=== PATIENT | female | born 1935 | race Caucasian/White ===

== ENCOUNTER → 2016-03-23 | Day surgery (SDC) | payer OTHER ==
[2016-03-19 14:47] VITALS: Ht 165.1 cm; Wt 68.2 kg
[~2016-03-23] VITALS: Ht 165.1 cm; Wt 68.2 kg
[~2016-03-23] MED LIST: 500ML BSS 0.3ML EPI 1:1000PF IRRIG ONE; ACET-1256 PO; ACETAMINOPHEN 325 MG TAB PO PRN; AMLO-110 PO; AMVISC PLUS 0.8ML SYRINGE INT OCU ONE; ATOR10TA88 PO; BSS FLUSH ONE; CALC8.5C PO; CEFP200T14 PO; CLOP1TAB15 PO; CYCLOPENTOLATE HCL 1% OP SOLN PER DROP CHARGE OPR SCH; DOCU-94 PO; ENOX1INJ8 INJ; EpINEphrine INJ 1MG/ML AMP 1 MG/ML AMP ONE; FRS/40 PO; GATIFLOXACIN OP SOLN PER DROP CHARGE OPR SCH; HPRIS5M SQ; KETOROLAC 0.5% OP SOLN PER DROP CHARGE OPR SCH; LACTATED RINGER'S 1000ML 500 ML IV SCH; LEVO25TA5 PO; LIDOCAINE 3.5% OPH GEL PER APPLICATION CHARGE ONE; LIDOCAINE HCL 1% MPF 2 ML VIAL ONE; LISI40TA PO; LPR25 PO; LVQ250 PO; METO25TA56 PO; MIDAZOLAM HCL 1 MG/ML 2ML VIAL ONE; NRV5 PO; OCUCOAT 1 ML SOLN IO ONE; OMEP20CA9 PO; OXYC1TAB3 PO; PHENYLEPHRINE HCL 10% OP SOLN PER DROP CHARGE OPR SCH; PHENYLEPHRINE HCL 2.5% OP SOLN PER DROP CHARGE OPR SCH; POLY335025 PO; POVIDONE-IODINE OP SOLN 30 ML BTL ONE; PRED1SUS3 OPR; PROPARACAINE 0.5% OP SOLN PER DROP CHARGE OPR SCH; SERT25TA PO; SODIUM CHLORIDE 0.9% 500ML IV SCH; TOBRAMYCIN/DEXAMETHASONE OPH OINT PER APPLN CHARGE ONE; TROPICAMIDE 1% OP SOLN PER DROP CHARGE OPR SCH; TRYPAN BLUE 0.06% FOR SURGI CENTER ONLY OP ONE; VISIONBLUE 0.06% 0.5ML/SYR TOP ONE
[2016-03-23] MEDS: PHENYLEPHRINE HCL 2.5% OP SOLN PER DROP CHARGE OPR SCH ×2 (10:46→10:51)
[2016-03-23] MEDS: TROPICAMIDE 1% OP SOLN PER DROP CHARGE OPR SCH ×2 (10:47→10:52)
[2016-03-23] MEDS: CYCLOPENTOLATE HCL 1% OP SOLN PER DROP CHARGE OPR SCH ×2 (10:48→10:53)
--- NOTE | 2016-03-23 10:48 | History & Physical Bridge - [place] ---
H&P Re-Evaluation Bridge Note: I have examined the patient, reviewed the History & Physical and in the interval since the performance of the History & Physical I have noted the following changes of clinical significance: Diagnosis: Right Cataract Procedure: Right Cataract Removal with Lens Implant No changes noted
[2016-03-23] MEDS: KETOROLAC 0.5% OP SOLN PER DROP CHARGE OPR SCH ×2 (10:49→10:54)
[2016-03-23] MEDS: GATIFLOXACIN OP SOLN PER DROP CHARGE OPR SCH ×2 (10:50→10:57)
--- NOTE | 2016-03-23 11:47 | Discharge Instructions-SurgCtr ---
Discharge Instructions Visit Reason for Visit: Cataract Right Eye Discharge Discharge Diagnosis / Problem: cataract Discharge Goals Goal(s): Improve function Activity Recommendations Activity Limitations: per Instructions/Follow-up section Anesthesia . Post Anesthesia Instructions: If you have had General Anesthesia or IV Sedation: * Do not drive today. * Resume driving when surgeon permits. * Do not make important decisions or sign legal documents today. * Call surgeon for: 1. Temperature elevations greater than 101 degrees F. 2. Uncontrollable pain. 3. Excessive bleeding. 4. Persistent nausea and vomiting. 5. Medication intolerance (nausea, vomiting or rash). * For nausea and vomiting use only clear liquids such as: tea, soda, bouillon until nausea subsides, then gradually increase diet as tolerated. * If you have any concerns or questions, call your surgeon's office. If physician is unavailable and it is an emergency, call 911 or go to the nearest emergency room. . Instructions / Follow-Up Instructions / Follow-Up ACTIVITY RECOMMENDATIONS: * No strenuous lifting, jogging or running for 4 days * No swimming or yard work for 1 week. * Limited bending is permitted, such as putting on shoes. RETURN TO SCHOOL/WORK: No work until seen by physician in office. MEDICATIONS: Resume previous medications unless instructed otherwise by your surgeon. This includes eye drops for glaucoma. Zymaxid/Gatifloxacin (ghotra cap) - one drop every 2 hours until bedtime Nevanac/Ilevro/Prolensa/Ketorolac (woodruff cap) - one drop every 4 hours until bedtime Prednisolone (white/pink cap, SHAKE WELL) - one drop every 2 hours until bedtime Starting tomorrow - all 3 drops every 4 hours until seen in the office Optive drops - as needed for discomfort SPECIAL CARE INSTRUCTIONS: * Wear eyeshield when sleeping, for four nights. * You may wear your own glasses or sunglasses while awake. * You may read or watch TV * You may shower and wash your face, but be gentle around the eye and pat dry. * Blurry vision and mild irritation are normal. * Call office if pain is more severe or vision becomes dark at . FOLLOW UP VISIT: Follow-up with Dr Dolan tomorrow. Diet Recommendations Home Diet: resume previous diet Procedures Procedures Performed: Right Cataract Phacoemulsification With Intraocular Lens Implant Pending Studies Studies pending at discharge: no Medical Emergencies . Who to Call and When: Medical Emergencies: If at any time you feel your situation is an emergency, please call 911 immediately. . Non-Emergent Contact Non-Emergency issues call your: Package Handler . . "Provider Documentation" section prepared by Regan Dolan.
[2016-03-23 11:50] VITALS: TEMP 37.1
--- NOTE | 2016-03-23 11:50 | [facility] Operative Report ---
Operative Report 1. PREOPERATIVE DIAGNOSIS: Mature Cataract of the right eye. 2. POSTOPERATIVE DIAGNOSIS: Same. 3. PROCEDURE: Phacoemulsification with intraocular lens implantation of the right eye with pupil stretching. SURGEON: Dr. Regan Dolan. ANESTHESIA: Topical Lidocaine gel, 1% Non- Preserved intracameral Lidocaine, and monitored intravenous sedation. INDICATIONS FOR THE PROCEDURE: The patient is a 80 - year-old female with a history of cataract of the right eye causing significant visual impairment. The details of the proposed procedure were explained to the patient who asked appropriate questions and following discussion of all risks, benefits and alternatives agreed to have the procedure done. The patient had a mature cataract with a poorly dilating pupil and therefore plans were made preoperatively to use Vision blue dye and pupil stretching. 4. OPERATION AND FINDINGS: DESCRIPTION OF PROCEDURE: After informed consent was obtained, the patient was brought to the Operating Room at the [facility]. The patient was placed in a supine position and then the right eye was prepped and draped in the usual sterile fashion for intraocular surgery. A drop of topical Lidocaine gel was placed in the operative eye. A wire lid speculum was then placed in the fornices. A corneal paracentesis was then created temporally. The Non-Preserved Lidocaine was then instilled into the anterior chamber. The anterior chamber was then pressurized with viscoelastic. A 2.0 mm clear corneal incision was then created temporally. Kuglen hooks were used to stretch the pupil vertically and horizontally. Vision Blue dye was used to stain the anterior lens capsule. A cystotome was inserted into the anterior chamber and used to create a tear in the anterior lens capsule. This capsular tear was then used to create a small flap and the flap was dragged in a counterclockwise direction in order to create a continuous curvilinear capsulorrhexis. Hydrodissection was accomplished with balanced salt solution. Phacoemulsification of the lens nucleus was then performed in a standard divide- and-conquer technique. The phaco time was 1 minute and 46 seconds with an average power of 21 %. The remaining cortical material was removed using irrigation aspiration. The capsular bag was then filled with viscoelastic. A [employer] MI60L +22.0 diopters lens was then loaded into the injector and injected into the capsular bag. The remaining viscoelastic was removed with the irrigation aspiration handpiece. The wound was hydrated and then checked and found to be watertight. The intraocular pressure was checked and found to be adequate. The wire lid speculum was removed and the patient's face was cleaned and dried. TobraDex ointment was placed in the inferior fornix. The patient was discharged to the Recovery Room having tolerated the procedure well. There were no complications. The patient will be seen tomorrow in the office for follow-up. I attest to the content of the Intraoperative Record and any orders documented therein. Any exceptions are noted below.
--- NOTE | 2016-03-23 11:56 | Anesthesia Progress Nt - [facility] ---
Anesthesia Post Op Note Date & Time Mar 23, 2016 at 11:56 Vital Signs Pain Intensity: 0 Vital Signs Past 12 Hours Date Time Temp Pulse Resp B/P Pulse Ox O2 Delivery O2 Flow Rate FiO2 03/23/16 11:50 37.1 65 16 186/65 97 Room Air 03/23/16 10:38 37.0 73 18 203/82 96 Room Air Notes Mental Status: alert / awake / arousable, participated in evaluation Pt Amnestic to Procedure: No Nausea / Vomiting: adequately controlled Pain: adequately controlled Airway Patency, RR, SpO2: stable & adequate BP & HR: stable & adequate Hydration State: stable & adequate Anesthetic Complications: no major complications apparent Pt doing well. Recall as expected.
[2016-03-23 12:03] VITALS: BP 175/66; PULSE 59; O2SAT 95
== END | disposition home or self-care (01) ==
LOC: X.SURG 10:22
PROVIDERS: ATTEND Ophthalmology
DX: H26.8 Other specified cataract (principal); M81.0 Age-related osteoporosis without current pathological fracture; M19.90 Unspecified osteoarthritis, unspecified site; E03.9 Hypothyroidism, unspecified; I10 Essential (primary) hypertension; N18.3 Chronic kidney disease, stage 3 (moderate); E78.5 Hyperlipidemia, unspecified; Z86.73 Personal history of transient ischemic attack (TIA), and cerebral infarction without residual deficits; Z82.49 Family history of ischemic heart disease and other diseases of the circulatory system

== ENCOUNTER 2016-05-03 21:40 | Inpatient (IN) | payer OTHER ==
[~2016-05-03] VITALS: Ht 162.6 cm; Wt 69.0 kg
[~2016-05-03 21:40] MED LIST changes: -500ML BSS 0.3ML EPI 1:1000PF IRRIG ONE; -ACET-1256 PO; -ACETAMINOPHEN 325 MG TAB PO PRN; -AMVISC PLUS 0.8ML SYRINGE INT OCU ONE; -BSS FLUSH ONE; -CEFP200T14 PO; -CYCLOPENTOLATE HCL 1% OP SOLN PER DROP CHARGE OPR SCH; -ENOX1INJ8 INJ; -EpINEphrine INJ 1MG/ML AMP 1 MG/ML AMP ONE; -GATIFLOXACIN OP SOLN PER DROP CHARGE OPR SCH; -HPRIS5M SQ; -KETOROLAC 0.5% OP SOLN PER DROP CHARGE OPR SCH; -LACTATED RINGER'S 1000ML 500 ML IV SCH; -LIDOCAINE 3.5% OPH GEL PER APPLICATION CHARGE ONE; -LIDOCAINE HCL 1% MPF 2 ML VIAL ONE; -LVQ250 PO; -METO25TA56 PO; -MIDAZOLAM HCL 1 MG/ML 2ML VIAL ONE; -NRV5 PO; -OCUCOAT 1 ML SOLN IO ONE; -OXYC1TAB3 PO; -PHENYLEPHRINE HCL 10% OP SOLN PER DROP CHARGE OPR SCH; -PHENYLEPHRINE HCL 2.5% OP SOLN PER DROP CHARGE OPR SCH; -POVIDONE-IODINE OP SOLN 30 ML BTL ONE; -PROPARACAINE 0.5% OP SOLN PER DROP CHARGE OPR SCH; -SODIUM CHLORIDE 0.9% 500ML IV SCH; -TOBRAMYCIN/DEXAMETHASONE OPH OINT PER APPLN CHARGE ONE; -TROPICAMIDE 1% OP SOLN PER DROP CHARGE OPR SCH; -TRYPAN BLUE 0.06% FOR SURGI CENTER ONLY OP ONE; -VISIONBLUE 0.06% 0.5ML/SYR TOP ONE
[2016-05-04] VITALS (8 sets, daily range): BP systolic 97–164; BP diastolic 47–72; PULSE 63–105; TEMP 36.6–37.3; O2SAT 93–96; Ht 162.6 cm; Wt 69.0 kg
[2016-05-04 00:15] LABS: BASO % 0.2 %; BASO ABS # 0.04 K/uL (0-0.2); COMPLETE YES; EOS % 2.1 %; HEMATOCRIT 34.6 % (37-47); IG% 0.7 %; LYMPH % 6.2 %; LYMPH ABS # 1.08 K/uL (1.2-3.4); MEAN CORPUSCULAR HEMOGLOBIN 27.3 pg (25-34); MEAN CORPUSCULAR HGB CONC 32.9 g/dl (32-36); MONO % 11.7 %; NEUT % 79.1 %; PLATELET COUNT 301 K/uL (130-400); RED BLOOD COUNT 4.17 M/uL (4.2-5.4); WHITE BLOOD COUNT 17.43 K/uL (4.8-10.8)
[2016-05-04] MEDS ORDERED: METO25TA56 PO (00:17)
[2016-05-04 00:25] LABS: INR 1.2 (0.9-1.1); PARTIAL THROMBOPLASTIN RATIO 1.2; PROTHROMBIN TIME (PATIENT) 12.9 SECONDS (9.0-12.0)
[2016-05-04 00:34] LABS: URINE APPEARANCE TURBID (CLEAR); URINE BILIRUBIN NEG (NEG); URINE COLOR YELLOW; URINE EPITHELIAL CELL AUTO 20-30 /lpf (0-5); URINE NITRITE NEG (NEG); URINE SPECIFIC GRAVITY 1.018 (1.000-1.030); UROBILINOGEN NEG (NEG); ZZURINE CULT IF INDIC CATH NO
[2016-05-04 00:41] LABS: MANUAL MICROSCOPIC REQUIRED? NO; REVIEW REQ? NO
[2016-05-04 00:46] LABS: BUN/CREATININE RATIO 20.2 (10-20); CREATININE 1.3 mg/dl (0.60-1.20); POTASSIUM 3.9 mmol/L (3.5-5.1)
[2016-05-04 00:51] LABS: CKMB/CK RATIO 1.2 (0-3.0)
[2016-05-04] MEDS ORDERED: LEVAQUIN 750MG / 150ML D5W IV STA (01:59)
[2016-05-04 02:28] LABS: INFLUENZA A PCR Neg for Influ A (NEG); INFLUENZA B PCR Neg for Influ B (NEG)
--- NOTE | 2016-05-04 02:36 | EMERGENCY ROOM VISIT NOTE ---
History Report prepared by Queenie: Elver Urias Under the Supervision of: Dr. Diana Treviño M.D. First contact with patient: 23:39 Chief Complaint: SHORTNESS OF BREATH Stated Complaint: FEVER,NAUSEA,SOB Nursing Triage Summary: c/o fever, cough, SOB, nausea, chills x 2 days. tylenol at 1800 History of Present Illness The patient is a 80 year old female who presents to the Emergency Room by EMS with complaints of persistent shortness of breath beginning two days ago. She also complains of nausea, fever of 101 degrees, and a cough. The patient's family states that the patient's urine has smelled "very strong" recently as well. He states that the patient has not had anything to eat today. He is concerned that the patient may have an infection. The patient denies any chest pain. Source of History: patient, family Onset: two days ago Quality: other (shortness of breath) Timing: other (persistent) Associated Symptoms: + cough, + fevers (101 degrees), + nausea, + urinary symptoms (abnormal smell), No chest pain Review of Systems See HPI for pertinent positives & negatives. A total of 10 systems reviewed and were otherwise negative. Past Medical & Surgical Medical Problems: (1) Adjustment reaction with anxiety and depression (2) Cerebrovascular disease (3) CKD (chronic kidney disease) stage 3, GFR 30-59 ml/min (4) Dyslipidemia (5) Fever (6) History of CVA (cerebrovascular accident) (7) HTN (hypertension) (8) Hypertension (9) Hypothyroidism (10) Osteoarthritis (11) Osteoporosis Surgical Problems: (1) History of hip surgery (2) No significant past surgical history Family History Cancer Diabetes mellitus FH: kidney disease Hypertension Social History Smoking Status: Never Smoker Drug Use: none Marital Status: Housing Status: lives with family Occupation Status: retired Current/Historical Medications Scheduled Amlodipine (Norvasc), 5 MG PO QAM Atorvastatin (Lipitor), 10 MG PO QPM Calcium W/ Vitamins D & K (Viactiv), 1 TAB PO BID Clopidogrel (Plavix), 75 MG PO QAM Docusate Sodium (Colace), 1 CAP PO BID Furosemide (Lasix), 40 MG PO QAM Levothyroxine Sodium (Levothyroxine Sodium), 25 MCG PO QAM Lisinopril (Zestril), 40 MG PO QAM Metoprolol Tartrate (Lopressor) (Lopressor), 12.5 MG PO BID Omeprazole (Prilosec), 20 MG PO HS Prednisolone Acetate (Ophth) (Pred Forte 1% Oph), 1 DROPS OPR DAILY Sertraline (Zoloft), 25 MG PO HS Scheduled PRN Polyethylene Glycol 3350 (Miralax), 17 GM PO DAILY PRN for Constipation Allergies Coded Allergies: Aspirin (Verified Allergy, Severe, ANAPHYLAXIS, SWELLING, 05/04/16) Physical Exam Vital Signs Date Time Temp Pulse Resp B/P Pulse Ox O2 Delivery O2 Flow Rate FiO2 05/04/16 02:17 67 18 130/49 94 Room Air 05/04/16 00:46 69 20 130/49 95 Room Air 05/03/16 23:46 72 05/03/16 23:45 66 22 148/56 95 Room Air 05/03/16 21:56 93 Room Air 05/03/16 21:52 36.9 76 20 133/62 94 Room Air Physical Exam Vital signs reviewed. General: Strong smell of urine present. Elderly, chronically ill appearing female, hard of hearing, in no acute distress. HEENT: No scleral icterus, PERRLA, neck supple. Atraumatic. Cardiovascular: Regular rate and rhythm, no extra sounds. Pulmonary: Clear to auscultation bilaterally, normal work of breathing. Abdomen: Soft, nontender, nondistended, positive bowel sounds. Musculoskeletal: Atraumatic, no peripheral edema. Neurologic: Patient awake alert and oriented x 3, full strength in all 4 extremities. Cranial nerves 2 through 12 grossly intact. Skin: Warm, dry, no rash Medical Decision & Procedures ER Provider Diagnostic Interpretation: One View Chest X-ray interpreted by me: Right perihilar fullness. Left basilar density. Possible right pleural effusion vs. infiltrate. Right sided infiltrate is new and left basilar density is old compared to 02/04/16. Laboratory Results 05/03/16 23:55 Red Blood Count 4.17, Mean Corpuscular Volume 83.0, Mean Corpuscular Hemoglobin 27.3, Mean Corpuscular Hemoglobin Concent 32.9, Mean Platelet Volume 10.0, Neutrophils (%) (Auto) 79.1, Lymphocytes (%) (Auto) 6.2, Monocytes (%) (Auto) 11.7, Eosinophils (%) (Auto) 2.1, Basophils (%) (Auto) 0.2, Neutrophils # (Auto ) 13.79, Lymphocytes # (Auto) 1.08, Monocytes # (Auto) 2.04, Eosinophils # (Auto ) 0.36, Basophils # (Auto) 0.04 Test 05/03/16 23:41 05/03/16 23:55 05/04/16 00:06 05/04/16 00:20 Influenza Type A (RT-PCR) Neg for Influ A (NEG) Influenza Type A Antigen Neg for Influ A (NEG) Influenza Type B Antigen Neg for Influ B (NEG) Influenza Type B (RT-PCR) Neg for Influ B (NEG) White Blood Count 17.43 K/uL (4.8-10.8) Red Blood Count 4.17 M/uL (4.2-5.4) Hemoglobin 11.4 g/dL (12.0-16.0) Hematocrit 34.6 % (37-47) Mean Corpuscular Volume 83.0 fL (80-100) Mean Corpuscular Hemoglobin 27.3 pg (25-34) Mean Corpuscular Hemoglobin Concent 32.9 g/dl (32-36) Platelet Count 301 K/uL (130-400) Mean Platelet Volume 10.0 fL (7.4-10.4) Neutrophils (%) (Auto) 79.1 % Lymphocytes (%) (Auto) 6.2 % Monocytes (%) (Auto) 11.7 % Eosinophils (%) (Auto) 2.1 % Basophils (%) (Auto) 0.2 % Neutrophils # (Auto) 13.79 K/uL (1.4-6.5) Lymphocytes # (Auto) 1.08 K/uL (1.2-3.4) Monocytes # (Auto) 2.04 K/uL (0.11-0.59) Eosinophils # (Auto) 0.36 K/uL (0-0.5) Basophils # (Auto) 0.04 K/uL (0-0.2) RDW Standard Deviation 44.3 fL (36.4-46.3) RDW Coefficient of Variation 14.5 % (11.5-14.5) Immature Granulocyte % (Auto) 0.7 % Immature Granulocyte # (Auto) 0.12 K/uL (0.00-0.02) Prothrombin Time 12.9 SECONDS (9.0-12.0) Prothromb Time International Ratio 1.2 (0.9-1.1) Activated Partial Thromboplast Time 30.5 SECONDS (21.0-31.0) Partial Thromboplastin Ratio 1.2 Magnesium Level 2.0 mg/dl (1.8-2.4) Total Bilirubin 0.3 mg/dl (0.2-1) Direct Bilirubin 0.1 mg/dl (0-0.2) Aspartate Amino Transf (AST/SGOT) 18 U/L (15-37) Alanine Aminotransferase (ALT/SGPT) 17 U/L (12-78) Alkaline Phosphatase 94 U/L (45-117) Total Creatine Kinase 75 U/L (26-192) Creatine Kinase MB 0.9 ng/ml (0.5-3.6) Creatine Kinase MB Ratio 1.2 (0-3.0) Total Protein 7.3 gm/dl (6.4-8.2) Albumin 2.8 gm/dl (3.4-5.0) Bedside Troponin I 0.000 ng/ml (0-0.045) Urine Color YELLOW Urine Appearance TURBID (CLEAR) Urine pH 5.0 (4.5-7.5) Urine Specific [place] 1.018 (1.000-1.030) Urine Protein NEG (NEG) Urine Glucose (UA) NEG (NEG) Urine Ketones NEG (NEG) Urine Occult Blood 3+ (NEG) Urine Nitrite NEG (NEG) Urine Bilirubin NEG (NEG) Urine Urobilinogen NEG (NEG) Urine Leukocyte Esterase TRACE (NEG) Urine WBC (Auto) 1-5 /hpf (0-5) Urine RBC (Auto) 0-4 /hpf (0-4) Urine Hyaline Casts (Auto) 1-5 /lpf (0-5) Urine Epithelial Cells (Auto) 20-30 /lpf (0-5) Urine Bacteria (Auto) NEG (NEG) Test 05/04/16 01:04 Bedside Lactic Acid Venous 1.64 mmol/L (0.90-1.70) Laboratory results per my review. Medications Administered Medications (Trade) Dose Ordered Sig/Ebony Route Start Time Stop Time Status Last Admin Dose Admin Levofloxacin (Levaquin / D5W) 750 mg NOW STAT IV 05/04/16 01:59 05/04/16 02:00 DC 05/04/16 02:13 750 MG ECG Indication: SOB/dyspnea Rate (beats per minute): 73 Rhythm: normal sinus Findings: RBBB (incomplete), no acute ischemic change, other (QTC of 491. Repolarization abnormality in the inferior leads. ) ED Course 2346: Past medical records reviewed. The patient was evaluated in room B4B. A complete history and physical examination was performed. 015: Ordered Levaquin / D5w 750 mg IV. 0225: Upon reevaluation, the patient is resting comfortably. I discussed laboratory and radiographic results with her. She verbalized agreement of the treatment plan. I spoke with Dr. Ordoñez of the [facility] Hospitalist Service. The patient will be evaluated for further management and care. Medical Decision Differential diagnosis: Etiologies such as viral syndrome, otitis, pharyngitis, pneumonia, influenza, meningitis, urinary tract infection, sepsis, bacteremia, as well as others were entertained. This patient was evaluated and appeared to be in no significant distress. IV access was obtained and laboratory work was drawn. The patient was placed on the cardiac surgeon and found to be in a normal sinus rhythm. Chest x-ray was performed and reveals evidence of pulmonary infiltrate. Blood cultures were obtained and the patient was given Levaquin 750 mg IV. The patient does not appear to be septic at this time. She is requiring nasal cannula oxygen for which she does not use at home. Patient's case was discussed with the hospitalist service. She'll be evaluated for further management. Patient family are aware of the plan and agree. Consults Time Called: [phone] Consulting Physician: Dr. Tiago Germain Returned Call: [phone] I reviewed the patient's case with Dr. Ordoñez. He will evaluate the patient for further management. Impression Primary Impression: Pneumonia involving right lung Scribe Attestation The scribe's documentation has been prepared under my direction and personally reviewed by me in its entirety. I confirm that the note above accurately reflects all work, treatment, procedures, and medical decision making performed by me. Departure Information Dispostion Being Evaluated By Hospitalist Referrals Cathleen Infante D.O. (PCP) Patient Instructions My [facility]
[2016-05-04] MEDS ORDERED: ACETAMINOPHEN 325 MG TAB PO PRN (02:45)
[2016-05-04] MEDS ORDERED: POLYETHYLENE (MIRALAX) 17 GM PACK PO PRN (04:45)
[2016-05-04] MEDS: LEVOTHYROXINE 25 MCG TAB PO SCH (06:10)
--- NOTE | 2016-05-04 06:45 | DIAGNOSTIC IMAGING REPORT ---
CHEST ONE VIEW PORTABLE CLINICAL HISTORY: Shortness of breath, fever, cough, nausea. COMPARISON STUDY: No previous studies for comparison. FINDINGS: The cardiac and mediastinal contours are normal. There is no evidence of focal pulmonary consolidation. There is no evidence of failure. No pleural effusions are visualized.[There are subtle airspace opacities at the right lateral lung base. These could be atelectatic or inflammatory. There is minor left basilar atelectasis. IMPRESSION: 1. Subtle airspace opacities at the right lateral lung base, atelectatic versus inflammatory. Clinical and radiographic follow-up is recommended. Electronically signed by: Dennis Rowan M.D. 05/04/2016 6:44 AM Dictated Date/Time: 05/04/2016 6:42 AM
--- NOTE | 2016-05-04 07:04 | History and Physical ---
History & Physical Date & Time of Service: May 04, 2016 at ~ 03:00 . Chief Complaint: fever . Primary Care Physician: Cathleen Infante D.O. . History of Present Illness Source: patient, family, clinic records, hospital records 80-year-old female followed by Dr. Infante. History of hypertension, cerebrovascular disease, and other problems noted below. She was in her usual state of health until 2 days prior to admission when she developed a fever and cough. Temp trace high as 102. Cough has been nonproductive. No associated sinusitis, pharyngitis, chest pain. Appetite poor. Family noted strong-smelling urine, but patient denies dysuria. . 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 Family History Cancer Diabetes mellitus FH: kidney disease Hypertension Social History Smoking Status: Never Smoker Alcohol Use: none Drug Use: none Marital Status: Housing status: lives with family Occupational Status: retired Immunizations History of Influenza Vaccine: Yes History of Pneumococcal: Yes Multi-Drug Resistant Organisms History of MDRO: No Allergies Coded Allergies: Aspirin (Verified Allergy, Severe, ANAPHYLAXIS, SWELLING, 05/04/16) Home Medications Scheduled Amlodipine (Norvasc), 5 MG PO QAM Atorvastatin (Lipitor), 10 MG PO QPM Calcium W/ Vitamins D & K (Viactiv), 1 TAB PO BID Clopidogrel (Plavix), 75 MG PO QAM Docusate Sodium (Colace), 1 CAP PO BID Furosemide (Lasix), 40 MG PO QAM Levothyroxine Sodium (Levothyroxine Sodium), 25 MCG PO QAM Lisinopril (Zestril), 40 MG PO QAM Metoprolol Tartrate (Lopressor) (Lopressor), 12.5 MG PO BID Omeprazole (Prilosec), 20 MG PO HS Prednisolone Acetate (Ophth) (Pred Forte 1% Oph), 1 DROPS OPR DAILY Sertraline (Zoloft), 25 MG PO HS Scheduled PRN Polyethylene Glycol 3350 (Miralax), 17 GM PO DAILY PRN for Constipation Review of Systems Constitutional: + fatigue, No chills, No fever, No sweats, No weight loss Eyes: + problem reported (cataract left eye) ENT: + hearing loss, No nasal symptoms, No sore throat Respiratory: + cough, + shortness of breath Cardiovascular: No chest pain, No edema, No palpitations Abdomen: + nausea, + problem reported (anorexia), No GI bleeding, No diarrhea, No pain, No vomiting Musculoskeletal: + joint pain Genitourinary - Female: + urinary incontinence, No dysuria, No hematuria Neurologic: + problem reported (headache 2 weeks ago, resolved), + weakness Psychiatric: + depression symptoms Endocrine: + fatigue, No excessive thirst, No excessive urination Hematologic / Lymphatic: + abnormal bleeding/bruising (bruises easily), No swollen lymph nodes Integumentary: No new/changing skin lesions, No rash Physical Exam Vital Signs Date Time Temp Pulse Resp B/P Pulse Ox O2 Delivery O2 Flow Rate FiO2 05/04/16 06:28 36.6 84 18 164/72 95 Room Air 05/04/16 03:09 37.1 68 20 139/55 94 05/04/16 03:08 72 05/04/16 03:07 94 Room Air 05/04/16 02:17 67 18 130/49 94 Room Air 05/04/16 00:46 69 20 130/49 95 Room Air 05/03/16 23:46 72 05/03/16 23:45 66 22 148/56 95 Room Air 05/03/16 21:56 93 Room Air 05/03/16 21:52 36.9 76 20 133/62 94 Room Air General Appearance: WD/WN, no apparent distress Head: normocephalic, atraumatic Eyes: normal inspection, PERRL, EOMI, sclerae normal (conjunctivae pink) ENT: normal ENT inspection, pharynx normal, + pertinent finding (heart a hearing; edentulous with upper and lower dentures) Neck: supple, no adenopathy, thyroid normal, no JVD, trachea midline Respiratory/Chest: no respiratory distress, no accessory muscle use, + crackles (right base) Cardiovascular: no edema, no gallop, no JVD, + systolic murmur (I/ systolic murmur at base), + pertinent finding (regular with occasional ectopy) Abdomen/GI: normal bowel sounds, non tender, soft, no organomegaly, no pulsatile mass Extremities/Musculoskelatal: normal inspection, no calf tenderness, no pedal edema 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 (PERRL, EOMI), alert, oriented x 3 Skin: normal color, warm/dry, no rash Lymphatic: no adenopathy Diagnostics Laboratory Results Results Past 24 Hours Test 05/03/16 23:41 05/03/16 23:55 05/04/16 00:06 05/04/16 00:20 Range/Units Influenza Type A (RT-PCR) Neg for Influ A NEG Influenza Type A Antigen Neg for Influ A NEG Influenza Type B Antigen Neg for Influ B NEG Influenza Type B (RT-PCR) Neg for Influ B NEG White Blood Count 17.43 4.8-10.8 K/uL Red Blood Count 4.17 4.2-5.4 M/uL Hemoglobin 11.4 12.0-16.0 g/dL Hematocrit 34.6 37-47 % Mean Corpuscular Volume 83.0 80-100 fL Mean Corpuscular Hemoglobin 27.3 25-34 pg Mean Corpuscular Hemoglobin Concent 32.9 32-36 g/dl Platelet Count 301 130-400 K/uL Mean Platelet Volume 10.0 7.4-10.4 fL Neutrophils (%) (Auto) 79.1 % Lymphocytes (%) (Auto) 6.2 % Monocytes (%) (Auto) 11.7 % Eosinophils (%) (Auto) 2.1 % Basophils (%) (Auto) 0.2 % Neutrophils # (Auto) 13.79 1.4-6.5 K/uL Lymphocytes # (Auto) 1.08 1.2-3.4 K/uL Monocytes # (Auto) 2.04 0.11-0.59 K/uL Eosinophils # (Auto) 0.36 0-0.5 K/uL Basophils # (Auto) 0.04 0-0.2 K/uL RDW Standard Deviation 44.3 36.4-46.3 fL RDW Coefficient of Variation 14.5 11.5-14.5 % Immature Granulocyte % (Auto) 0.7 % Immature Granulocyte # (Auto) 0.12 0.00-0.02 K/uL Prothrombin Time 12.9 9.0-12.0 SECONDS Prothromb Time International Ratio 1.2 0.9-1.1 Activated Partial Thromboplast Time 30.5 21.0-31.0 SECONDS Partial Thromboplastin Ratio 1.2 Sodium Level 137 136-145 mmol/L Potassium Level 3.9 3.5-5.1 mmol/L Chloride Level 98 98-107 mmol/L Carbon Dioxide Level 29 21-32 mmol/L Anion Gap 10.0 3-11 mmol/L Blood Urea Nitrogen 26 7-18 mg/dl Creatinine 1.30 0.60-1.20 mg/dl Est Creatinine Clear Calc Drug Dose 31.8 ml/min Estimated GFR () 44.2 Estimated GFR (Non- 38.2 BUN/Creatinine Ratio 20.2 10-20 Random Glucose 111 70-99 mg/dl Calcium Level 8.0 8.5-10.1 mg/dl Magnesium Level 2.0 1.8-2.4 mg/dl Total Bilirubin 0.3 0.2-1 mg/dl Direct Bilirubin 0.1 0-0.2 mg/dl Aspartate Amino Transf (AST/SGOT) 18 15-37 U/L Alanine Aminotransferase (ALT/SGPT) 17 12-78 U/L Alkaline Phosphatase 94 45-117 U/L Total Creatine Kinase 75 26-192 U/L Creatine Kinase MB 0.9 0.5-3.6 ng/ml Creatine Kinase MB Ratio 1.2 0-3.0 Total Protein 7.3 6.4-8.2 gm/dl Albumin 2.8 3.4-5.0 gm/dl Bedside Troponin I 0.000 0-0.045 ng/ml Urine Color YELLOW Urine Appearance TURBID CLEAR Urine pH 5.0 4.5-7.5 Urine Specific [place] 1.018 1.000-1.030 Urine Protein NEG NEG Urine Glucose (UA) NEG NEG Urine Ketones NEG NEG Urine Occult Blood 3+ NEG Urine Nitrite NEG NEG Urine Bilirubin NEG NEG Urine Urobilinogen NEG NEG Urine Leukocyte Esterase TRACE NEG Urine WBC (Auto) 1-5 0-5 /hpf Urine RBC (Auto) 0-4 0-4 /hpf Urine Hyaline Casts (Auto) 1-5 0-5 /lpf Urine Epithelial Cells (Auto) 20-30 0-5 /lpf Urine Bacteria (Auto) NEG NEG Test 05/04/16 01:04 05/04/16 06:44 Range/Units Bedside Lactic Acid Venous 1.64 0.90-1.70 mmol/L Microbiology Results 05/03/16 Blood Culture, Received Pending 05/03/16 Blood Culture, Received Pending Diagnostic Radiology CHEST ONE VIEW PORTABLE CLINICAL HISTORY: Shortness of breath, fever, cough, nausea. COMPARISON STUDY: No previous studies for comparison. FINDINGS: The cardiac and mediastinal contours are normal. There is no evidence of focal pulmonary consolidation. There is no evidence of failure. No pleural effusions are visualized.[There are subtle airspace opacities at the right lateral lung base. These could be atelectatic or inflammatory. There is minor left basilar atelectasis. IMPRESSION: 1. Subtle airspace opacities at the right lateral lung base, atelectatic versus inflammatory. Clinical and radiographic follow-up is recommended. Electronically signed by: Dennis Rowan M.D. 05/04/2016 6:44 AM . EKG EKG performed at 23:50 reviewed and demonstrated normal sinus rhythm at 70/ minute, incomplete right bundle branch block, no acute ST or T-wave abnormalities. QTc was 491 ms. . Impression Assessment and Plan PNEUMONIA Temp as high as 102 at home. WBC 17,000. History most consistent with pneumonia. Chest x-ray shows suggests subtle infiltrate at the right base. Urine does not appear to be infected. Patient received a dose of levofloxacin in the ED after blood cultures were obtained. Will change therapy to doxycycline + ceftriaxone in light of prolonged QTc. HYPERTENSION Hold furosemide in light of febrile illness. Continue metoprolol, lisinopril, amlodipine. CEREBROVASCULAR DISEASE Continue clopidogrel. VTE PROPHYLAXIS Moderate risk for VTE. SQ heparin. Ambulate. RESUSCITATION STATUS Discussed with patient and her family.. [id number] believes that she has a living will. She would like resuscitation attempted in the event of a cardiopulmonary arrest if there is a reasonable chance of a meaningful recovery, but does not want prolonged extraordinary measures if prognosis is poor. Therefore, code status = "Level 1" (full resuscitation). DISPOSITION Admit to Med-Surg Unit. Expected discharge to home. Family Medicine follow-up with Dr. Infante. . Advanced Directives Existing Living Will: No Existing Power of Fence Builder: No VTE Prophylaxis VTE Risk Assessment Done? Y/N: Yes Risk Level: Moderate Given or contraindicated: Unfractionated heparin SQ
[2016-05-04] MEDS: LISINOPRIL 40 MG TAB PO SCH (07:38)
[2016-05-04] MEDS: PrednisoLONE ACET 1% OP SUSP 5 ML BTL OPR SCH (07:38)
[2016-05-04] MEDS: CLOPIDOGREL BISULFATE 75 MG TAB PO SCH (07:38)
[2016-05-04] MEDS: PANTOprazole SOD 40 MG TAB PO SCH (07:38)
[2016-05-04] MEDS: DOCUSATE SODIUM 100 MG CAP PO SCH ×2 (07:38→21:27)
[2016-05-04] MEDS: AMLODIPINE BESYLATE 5 MG TAB PO SCH (07:39)
[2016-05-04] MEDS: METOPROLOL TARTRATE 25 MG TAB PO SCH ×2 (07:39→21:25)
[2016-05-04 07:45] LABS: BUN/CREATININE RATIO 20.8 (10-20); CALCIUM 7.6 mg/dl (8.5-10.1); POTASSIUM 3.4 mmol/L (3.5-5.1)
[2016-05-04] MEDS ORDERED: POTASSIUM CHLORIDE 20 MEQ TABCR PO ONE (11:00)
[2016-05-04] MEDS: DOXYCYCLINE IV 100 MG in DEXTROSE 5% 100ML 100 ML IV SCH (14:28)
--- NOTE | 2016-05-04 16:32 | Progress Note ---
Medicine Progress Note Date & Time of Visit: May 04, 2016 at 16:16. Subjective Pt was seen and examined Sitting in bed with no distress Pt said that she feels a little better she said that she continue to cough denies any fever, chest pain, palpitation and sob. Objective Last 8 Hrs Date Time Temp Pulse Resp B/P Pulse Ox O2 Delivery O2 Flow Rate FiO2 05/04/16 14:32 37.0 63 18 112/56 96 Room Air 05/04/16 11:43 36.7 105 18 114/55 95 05/04/16 09:08 36.6 Physical Exam: General- no acute distress Head- atraumatic Eyes- PERRL, EOMI ENT- oropharynx clear Neck- supple, no JVD Lungs- + crackle at bases Heart- regular rhythm; +systolic murmur Abdomen- normal bowel sounds, soft Extremities- no calf tenderness Neuro- alert, oriented x 3; PERRL, EOMI Skin- warm & dry Laboratory Results: Last 24 Hours Test 05/03/16 23:41 05/03/16 23:55 05/04/16 00:06 05/04/16 00:20 Influenza Type A (RT-PCR) Neg for Influ A Influenza Type A Antigen Neg for Influ A Influenza Type B Antigen Neg for Influ B Influenza Type B (RT-PCR) Neg for Influ B White Blood Count 17.43 K/uL Red Blood Count 4.17 M/uL Hemoglobin 11.4 g/dL Hematocrit 34.6 % Mean Corpuscular Volume 83.0 fL Mean Corpuscular Hemoglobin 27.3 pg Mean Corpuscular Hemoglobin Concent 32.9 g/dl Platelet Count 301 K/uL Mean Platelet Volume 10.0 fL Neutrophils (%) (Auto) 79.1 % Lymphocytes (%) (Auto) 6.2 % Monocytes (%) (Auto) 11.7 % Eosinophils (%) (Auto) 2.1 % Basophils (%) (Auto) 0.2 % Neutrophils # (Auto) 13.79 K/uL Lymphocytes # (Auto) 1.08 K/uL Monocytes # (Auto) 2.04 K/uL Eosinophils # (Auto) 0.36 K/uL Basophils # (Auto) 0.04 K/uL RDW Standard Deviation 44.3 fL RDW Coefficient of Variation 14.5 % Immature Granulocyte % (Auto) 0.7 % Immature Granulocyte # (Auto) 0.12 K/uL Prothrombin Time 12.9 SECONDS Prothromb Time International Ratio 1.2 Activated Partial Thromboplast Time 30.5 SECONDS Partial Thromboplastin Ratio 1.2 Sodium Level 137 mmol/L Potassium Level 3.9 mmol/L Chloride Level 98 mmol/L Carbon Dioxide Level 29 mmol/L Anion Gap 10.0 mmol/L Blood Urea Nitrogen 26 mg/dl Creatinine 1.30 mg/dl Est Creatinine Clear Calc Drug Dose 31.8 ml/min Estimated GFR () 44.2 Estimated GFR (Non- 38.2 BUN/Creatinine Ratio 20.2 Random Glucose 111 mg/dl Calcium Level 8.0 mg/dl Magnesium Level 2.0 mg/dl Total Bilirubin 0.3 mg/dl Direct Bilirubin 0.1 mg/dl Aspartate Amino Transf (AST/SGOT) 18 U/L Alanine Aminotransferase (ALT/SGPT) 17 U/L Alkaline Phosphatase 94 U/L Total Creatine Kinase 75 U/L Creatine Kinase MB 0.9 ng/ml Creatine Kinase MB Ratio 1.2 Total Protein 7.3 gm/dl Albumin 2.8 gm/dl Bedside Troponin I 0.000 ng/ml Urine Color YELLOW Urine Appearance TURBID Urine pH 5.0 Urine Specific [place] 1.018 Urine Protein NEG Urine Glucose (UA) NEG Urine Ketones NEG Urine Occult Blood 3+ Urine Nitrite NEG Urine Bilirubin NEG Urine Urobilinogen NEG Urine Leukocyte Esterase TRACE Urine WBC (Auto) 1-5 /hpf Urine RBC (Auto) 0-4 /hpf Urine Hyaline Casts (Auto) 1-5 /lpf Urine Epithelial Cells (Auto) 20-30 /lpf Urine Bacteria (Auto) NEG Test 05/04/16 01:04 05/04/16 06:44 Bedside Lactic Acid Venous 1.64 mmol/L Sodium Level 138 mmol/L Potassium Level 3.4 mmol/L Chloride Level 100 mmol/L Carbon Dioxide Level 30 mmol/L Anion Gap 8.0 mmol/L Blood Urea Nitrogen 21 mg/dl Creatinine 1.00 mg/dl Est Creatinine Clear Calc Drug Dose 41.4 ml/min Estimated GFR () 60.8 Estimated GFR (Non- 52.4 BUN/Creatinine Ratio 20.8 Random Glucose 100 mg/dl Calcium Level 7.6 mg/dl Date/Time Source Procedure Growth Status 05/03/16 23:58 Blood Blood Culture Pending Received 05/03/16 23:55 Blood Blood Culture Pending Received Assessment & Plan PNEUMONIA WBC 17,000 on admission Chest x-ray showed subtle airspace opacities at the right lateral lung base UA only showed trace leukocytes Flu test negative Blood cx pending Received levofloxacin in the ED Abx changed to doxycycline and rocephin due to prolonged QTc. continue monitor HYPERTENSION Hold furosemide in light of febrile illness. Continue metoprolol, lisinopril, amlodipine. Monitor BP CEREBROVASCULAR DISEASE Continue clopidogrel. Stable VTE PROPHYLAXIS Moderate risk for VTE. SQ heparin. Ambulate. RESUSCITATION STATUS FULL CODE [id number] believes that she has a living will. Code status discussed with pt and family during the admission. She would like resuscitation attempted in the event of a cardiopulmonary arrest if there is a reasonable chance of a meaningful recovery, but does not want prolonged extraordinary measures if prognosis is poor. Current Inpatient Medications: Current Inpatient Medications Medications (Trade) Dose Ordered Sig/Ebony Route Start Time Stop Time Status Last Admin Dose Admin Acetaminophen (Tylenol Tab) 650 mg Q4H PRN PO 05/04/16 02:45 06/03/16 02:44 05/04/16 07:38 650 MG Amlodipine Besylate (Norvasc Tab) 5 mg QAM PO 05/04/16 09:00 06/03/16 08:59 05/04/16 07:39 5 MG Atorvastatin Calcium (Lipitor Tab) 10 mg QPM PO 05/04/16 21:00 06/03/16 20:59 Clopidogrel Bisulfate (plAVix TAB) 75 mg QAM PO 05/04/16 09:00 06/03/16 08:59 05/04/16 07:38 75 MG Docusate Sodium (coLACE CAP) 100 mg BID PO 05/04/16 09:00 06/03/16 08:59 05/04/16 07:38 100 MG Levothyroxine Sodium (Synthroid Tab) 25 mcg DAILYBB PO 05/04/16 06:30 06/03/16 06:29 05/04/16 06:10 25 MCG Lisinopril (Zestril Tab) 40 mg QAM PO 05/04/16 09:00 06/03/16 08:59 05/04/16 07:38 40 MG Metoprolol Tartrate (Lopressor Tab) 12.5 mg BID PO 05/04/16 09:00 06/03/16 08:59 05/04/16 07:39 12.5 MG Polyethylene (Miralax Powder Packet) 17 gm DAILY PRN PO 05/04/16 04:45 06/03/16 04:44 Prednisolone Acetate (Pred Forte 1% Oph Susp) 1 drops DAILY OPR 05/04/16 09:00 06/03/16 08:59 05/04/16 07:38 1 DROPS Sertraline HCl (Zoloft Tab) 25 mg HS PO 05/04/16 21:00 06/03/16 20:59 Pantoprazole Sodium 40 mg 40 mg QAM PO 05/04/16 09:00 06/03/16 08:59 05/04/16 07:38 40 MG Doxycycline Hyclate 100 mg/ Dextrose 110 ml @ 50 mls/hr Q12H IV 05/04/16 14:00 05/11/16 20:59 05/04/16 14:28 50 MLS/HR Ceftriaxone Sodium/Dextrose (Rocephin Inj/ Dextrose Add-[place] 50ML) 50 ml @ 100 mls/hr DAILY@2200 IV 05/04/16 22:00 05/11/16 21:59 Heparin Sodium (Porcine) (Heparin Sq 5000 Unit/0.5ml) 5,000 unit Q12 SQ 05/04/16 21:00 06/03/16 20:59
[2016-05-04] MEDS ORDERED: ATORVASTATIN 10 MG TAB PO SCH (21:00)
[2016-05-04] MEDS ORDERED: SERTRALINE HCL 50 MG TAB PO SCH (21:00)
[2016-05-04] MEDS: HEPARIN SOD 5000 UNIT/0.5 ML CARP SQ SCH (21:31)
[2016-05-04] MEDS: CEFTRIAXONE SOD INJ 1 GM in DEXTROSE 5% ADD-VANTAGE 50ML 50 ML IV SCH ×2 (22:11→22:57)
[2016-05-05] MEDS: DOXYCYCLINE IV 100 MG in DEXTROSE 5% 100ML 100 ML IV SCH ×3 (02:22→18:21)
[2016-05-05] MEDS: LEVOTHYROXINE 25 MCG TAB PO SCH (06:19)
--- NOTE | 2016-05-05 06:46 | Clinical Documentation Query ---
CLINICAL DOCUMENTATION QUERY 80 year old female who presents with pneumonia. She is on a home medication regimen of Lasix, Lisinopril, Lopressor, and Norvasc. In your clinical opinion does this patient have PmHx of: ( ) Chronic diastolic (preserved EF) CHF ( ) Other explanation of clinical findings (Please Explain) ( ) Unable to determine (Please Define) ( ) Need to Discuss ( ) Not Agree The medical record reflects the following clinical findings, treatment, and risk factors. Clinical Indicators: As above. Home meds continued with exception of Lasix. It is being held 2/2 febrile illness. Treatment: I/O's Risk Factors: Age, HTN, and CKD Please clarify and document your clinical opinion in the progress notes and discharge summary. Terms such as "probable", "suspected", "likely", "questionable", "possible", or "still to be ruled out" are acceptable. IF IN AGREEMENT, YOU MUST DOCUMENT ABOVE DIAGNOSTIC STATEMENT IN DAILY PROGRESS NOTES AND DISCHARGE SUMMARY. This document is not part of the patient's record. Thank You, Russ Spears, RN [phone]
[2016-05-05 07:49] VITALS: BP 122/50; PULSE 64; TEMP 36.9; O2SAT 95
[2016-05-05 07:53] VITALS: O2SAT 95
[2016-05-05 08:16] LABS: HEMATOCRIT 30.5 % (37-47); MEAN CELL VOLUME 82.2 fL (80-100); MEAN CORPUSCULAR HGB CONC 32.8 g/dl (32-36); MEAN PLATELET VOLUME 9.2 fL (7.4-10.4); PLATELET COUNT 294 K/uL (130-400); RED BLOOD COUNT 3.71 M/uL (4.2-5.4); WHITE BLOOD COUNT 12.38 K/uL (4.8-10.8)
[2016-05-05] MEDS: METOPROLOL TARTRATE 25 MG TAB PO SCH (08:25)
[2016-05-05] MEDS: CLOPIDOGREL BISULFATE 75 MG TAB PO SCH (08:26)
[2016-05-05] MEDS: LISINOPRIL 40 MG TAB PO SCH (08:26)
[2016-05-05] MEDS: DOCUSATE SODIUM 100 MG CAP PO SCH (08:26)
[2016-05-05] MEDS: AMLODIPINE BESYLATE 5 MG TAB PO SCH (08:26)
[2016-05-05] MEDS: PrednisoLONE ACET 1% OP SUSP 5 ML BTL OPR SCH (08:26)
[2016-05-05] MEDS: PANTOprazole SOD 40 MG TAB PO SCH (08:26)
[2016-05-05] MEDS: HEPARIN SOD 5000 UNIT/0.5 ML CARP SQ SCH (08:31)
[2016-05-05 08:52] LABS: BUN/CREATININE RATIO 18.4 (10-20); CREATININE 0.96 mg/dl (0.60-1.20); POTASSIUM 4.1 mmol/L (3.5-5.1)
[2016-05-05 11:36] VITALS: TEMP 37.1
[2016-05-05 15:45] VITALS: BP 122/72; PULSE 61; TEMP 37; O2SAT 97
--- NOTE | 2016-05-05 16:35 | Progress Note ---
Medicine Progress Note Date & Time of Visit: May 05, 2016 at 16:31. Subjective Pt was seen and examined Pt said that she feels much better she said that her cough is better no fever since admitted she wants to go home today because she has an appt tomorrow for her hearing aid She very anxious to go home tonight Denies any chest pain, palpitation, dizziness and sob Objective Last 8 Hrs Date Time Temp Pulse Resp B/P Pulse Ox O2 Delivery O2 Flow Rate FiO2 05/05/16 15:45 37.0 61 18 122/72 97 Room Air 05/05/16 11:36 37.1 05/05/16 08:45 Room Air Physical Exam: General- no acute distress Head- atraumatic Eyes- PERRL, EOMI ENT- oropharynx clear Neck- supple, no JVD Lungs- CTA, no wheezing, no rales Heart- regular rhythm; +systolic murmur Abdomen- normal bowel sounds, soft Extremities- no calf tenderness Neuro- alert, oriented x 3; PERRL, EOMI Skin- warm & dry Laboratory Results: Last 24 Hours Test 05/05/16 07:55 White Blood Count 12.38 K/uL Red Blood Count 3.71 M/uL Hemoglobin 10.0 g/dL Hematocrit 30.5 % Mean Corpuscular Volume 82.2 fL Mean Corpuscular Hemoglobin 27.0 pg Mean Corpuscular Hemoglobin Concent 32.8 g/dl RDW Standard Deviation 44.2 fL RDW Coefficient of Variation 14.7 % Platelet Count 294 K/uL Mean Platelet Volume 9.2 fL Sodium Level 140 mmol/L Potassium Level 4.1 mmol/L Chloride Level 103 mmol/L Carbon Dioxide Level 30 mmol/L Anion Gap 7.0 mmol/L Blood Urea Nitrogen 18 mg/dl Creatinine 0.96 mg/dl Est Creatinine Clear Calc Drug Dose 43.1 ml/min Estimated GFR () 63.8 Estimated GFR (Non- 55.1 BUN/Creatinine Ratio 18.4 Random Glucose 85 mg/dl Calcium Level 8.0 mg/dl Assessment & Plan PNEUMONIA WBC 17,000 on admission, treding down to 12K Afebrile Chest x-ray showed subtle airspace opacities at the right lateral lung base UA only showed trace leukocytes Flu test negative Blood cx no growth Received levofloxacin in the ED Abx changed to doxycycline and rocephin due to prolonged QTc. continue monitor HYPERTENSION Hold furosemide in light of febrile illness. Continue metoprolol, lisinopril, amlodipine. Monitor BP CEREBROVASCULAR DISEASE Continue clopidogrel. Stable VTE PROPHYLAXIS Moderate risk for VTE. SQ heparin. Ambulate. RESUSCITATION STATUS FULL CODE [id number] believes that she has a living will. Code status discussed with pt and family during the admission. She would like resuscitation attempted in the event of a cardiopulmonary arrest if there is a reasonable chance of a meaningful recovery, but does not want prolonged extraordinary measures if prognosis is poor. Current Inpatient Medications: Current Inpatient Medications Medications (Trade) Dose Ordered Sig/Ebony Route Start Time Stop Time Status Last Admin Dose Admin Acetaminophen (Tylenol Tab) 650 mg Q4H PRN PO 05/04/16 02:45 06/03/16 02:44 05/04/16 07:38 650 MG Amlodipine Besylate (Norvasc Tab) 5 mg QAM PO 05/04/16 09:00 06/03/16 08:59 05/05/16 08:26 5 MG Atorvastatin Calcium (Lipitor Tab) 10 mg QPM PO 05/04/16 21:00 06/03/16 20:59 05/04/16 21:27 10 MG Clopidogrel Bisulfate (plAVix TAB) 75 mg QAM PO 05/04/16 09:00 06/03/16 08:59 05/05/16 08:26 75 MG Docusate Sodium (coLACE CAP) 100 mg BID PO 05/04/16 09:00 06/03/16 08:59 05/05/16 08:26 100 MG Levothyroxine Sodium (Synthroid Tab) 25 mcg DAILYBB PO 05/04/16 06:30 06/03/16 06:29 05/05/16 06:19 25 MCG Lisinopril (Zestril Tab) 40 mg QAM PO 05/04/16 09:00 06/03/16 08:59 05/05/16 08:26 40 MG Metoprolol Tartrate (Lopressor Tab) 12.5 mg BID PO 05/04/16 09:00 06/03/16 08:59 05/05/16 08:25 12.5 MG Polyethylene (Miralax Powder Packet) 17 gm DAILY PRN PO 05/04/16 04:45 06/03/16 04:44 Prednisolone Acetate (Pred Forte 1% Oph Susp) 1 drops DAILY OPR 05/04/16 09:00 06/03/16 08:59 05/05/16 08:26 1 DROPS Sertraline HCl (Zoloft Tab) 25 mg HS PO 05/04/16 21:00 06/03/16 20:59 05/04/16 21:26 25 MG Pantoprazole Sodium 40 mg 40 mg QAM PO 05/04/16 09:00 06/03/16 08:59 05/05/16 08:26 40 MG Doxycycline Hyclate 100 mg/ Dextrose 110 ml @ 50 mls/hr Q12H IV 05/04/16 14:00 05/11/16 20:59 05/05/16 14:24 50 MLS/HR Ceftriaxone Sodium/Dextrose (Rocephin Inj/ Dextrose Add-[place] 50ML) 50 ml @ 100 mls/hr DAILY@2200 IV 05/04/16 22:00 05/11/16 21:59 05/04/16 22:57 100 MLS/HR Heparin Sodium (Porcine) (Heparin Sq 5000 Unit/0.5ml) 5,000 unit Q12 SQ 05/04/16 21:00 06/03/16 20:59 05/05/16 08:31 5,000 UNIT
[2016-05-05] MEDS ORDERED: CEFP200T14 PO (19:09)
--- NOTE | 2016-05-05 19:13 | Discharge Instructions ---
Discharge Instructions Date of Service May 05, 2016. Admission Reason for Admission: FEVER Discharge Discharge Diagnosis / Problem: Pneumonia, HTN Discharge Goals Goal(s): Decrease discomfort, Improve function, Improve disease control Activity Recommendations Activity Limitations: resume your previous activity (as tolerated) . Instructions / Follow-Up Instructions / Follow-Up Please follow up with your primary care PCP Dr. Infante on Sunday 05/07 at 12: 50 pm Complete the course of antibiotic Please seek medical attention if fever develops Current Hospital Diet Patient's current hospital diet: AHA Diet (Heart Healthy) Discharge Diet Recommended Diet: AHA Diet (Heart Healthy), Low Sodium Diet (2gm Na) Pending Studies Studies pending at discharge: no Medical Emergencies . Who to Call and When: Medical Emergencies: If at any time you feel your situation is an emergency, please call 911 immediately. . Non-Emergent Contact Non-Emergency issues call your: Primary Care Provider Call Non-Emergent contact if: you have a fever, you have any medication questions . . "Provider Documentation" section prepared by Viktoria Em. VTE Core Measure Inpt VTE Proph given/why not?: Unfractionated heparin SQ
[2016-05-05 19:19] VITALS: BP 122/72; PULSE 61; TEMP 37; O2SAT 97
--- NOTE | 2016-05-06 07:58 | Discharge Summary ---
Discharge Summary Date of Service May 06, 2016. Discharge Summary Admission Date: May 04, 2016 at 02:41 Discharge Date: May 05, 2016 Discharge Disposition: Home Principal Diagnosis: Pneumonia Secondary Diagnoses/Problems: Pneumonia HTN CEREBROVASCULAR DISEASE Medication Reconciliation New Medications: Cefpodoxime Proxetil (Cefpodoxime Proxetil) 200 Mg Tab 1 TAB PO BID for 5 Days, #10 TAB Continued Medications: Amlodipine (Norvasc) 5 Mg Tab 5 MG PO QAM, TAB Atorvastatin (Lipitor) 10 Mg Tab 10 MG PO QPM, TAB Calcium W/ Vitamins D & K (Viactiv) 1 Chw Chw 1 TAB PO BID Clopidogrel (Plavix) 75 Mg Tab 75 MG PO QAM, TAB Docusate Sodium (Colace) 100 Mg Cap 1 CAP PO BID for 30 Days, #60 CAP Furosemide (Lasix) 40 Mg Tab 40 MG PO QAM Levothyroxine Sodium (Levothyroxine Sodium) 25 Mcg Tab 25 MCG PO QAM Lisinopril (Zestril) 40 Mg Tab 40 MG PO QAM Metoprolol Tartrate (Lopressor) (Lopressor) 25 Mg Tab 12.5 MG PO BID, TAB Omeprazole (Prilosec) 20 Mg Cap 20 MG PO HS, #30 Polyethylene Glycol 3350 (Miralax) 1 Pow Pow 17 GM PO DAILY PRN for Constipation Prednisolone Acetate (Ophth) (Pred Forte 1% Oph) 1 % Meghan 1 DROPS OPR DAILY, #5 ML Sertraline (Zoloft) 25 Mg Tab 25 MG PO HS, TAB Admission Information HPI (per Admitting provider): 80-year-old female followed by Dr. Infante. History of hypertension, cerebrovascular disease, and other problems noted below. She was in her usual state of health until 2 days prior to admission when she developed a fever and cough. Temp trace high as 102. Cough has been nonproductive. No associated sinusitis, pharyngitis, chest pain. Appetite poor. Family noted strong-smelling urine, but patient denies dysuria. . Physical Exam (per Admitting): General Appearance: WD/WN, no apparent distress Head: normocephalic, atraumatic Eyes: normal inspection, PERRL, EOMI, sclerae normal (conjunctivae pink) ENT: normal ENT inspection, pharynx normal, + pertinent finding (heart a hearing; edentulous with upper and lower dentures) Neck: supple, no adenopathy, thyroid normal, no JVD, trachea midline Respiratory/Chest: no respiratory distress, no accessory muscle use, + crackles (right base) Cardiovascular: no edema, no gallop, no JVD, + systolic murmur (I/ systolic murmur at base), + pertinent finding (regular with occasional ectopy) Abdomen/GI: normal bowel sounds, non tender, soft, no organomegaly, no pulsatile mass Extremities/Musculoskelatal: normal inspection, no calf tenderness, no pedal edema Neurologic/Psych: photographer's model II-XII nml as tested (PERRL, EOMI), alert, oriented x 3 Skin: normal color, warm/dry, no rash Lymphatic: no adenopathy Hospital Course PNEUMONIA WBC 17,000 on admission, treding down to 12K Afebrile Chest x-ray showed subtle airspace opacities at the right lateral lung base UA only showed trace leukocytes Flu test negative Blood cx no growth Received levofloxacin in the ED Abx changed to doxycycline and rocephin due to prolonged QTc. continue monitor HYPERTENSION Hold furosemide in light of febrile illness. Continue metoprolol, lisinopril, amlodipine. Monitor BP CEREBROVASCULAR DISEASE Continue clopidogrel. Stable VTE PROPHYLAXIS Moderate risk for VTE. SQ heparin. Ambulate. RESUSCITATION STATUS FULL CODE [id number] believes that she has a living will. Code status discussed with pt and family during the admission. She would like resuscitation attempted in the event of a cardiopulmonary arrest if there is a reasonable chance of a meaningful recovery, but does not want prolonged extraordinary measures if prognosis is poor. Total time spent on discharge = 35 minutes This includes examination of the patient, discharge planning, medication reconciliation, and communication with other providers. Discharge Instructions Discharge Instructions Date of Service May 05, 2016. Admission Reason for Admission: FEVER Discharge Discharge Diagnosis / Problem: Pneumonia, HTN Discharge Goals Goal(s): Decrease discomfort, Improve function, Improve disease control Activity Recommendations Activity Limitations: resume your previous activity (as tolerated) . Instructions / Follow-Up Instructions / Follow-Up Please follow up with your primary care PCP Dr. Infante on Sunday 05/07 at 12: 50 pm Complete the course of antibiotic Please seek medical attention if fever develops Current Hospital Diet Patient's current hospital diet: AHA Diet (Heart Healthy) Discharge Diet Recommended Diet: AHA Diet (Heart Healthy), Low Sodium Diet (2gm Na) Pending Studies Studies pending at discharge: no Medical Emergencies . Who to Call and When: Medical Emergencies: If at any time you feel your situation is an emergency, please call 911 immediately. . Non-Emergent Contact Non-Emergency issues call your: Primary Care Provider Call Non-Emergent contact if: you have a fever, you have any medication questions . . "Provider Documentation" section prepared by Viktoria Em. VTE Core Measure Inpt VTE Proph given/why not?: Unfractionated heparin SQ Additional Copies To Cathleen Infante D.O.
[2016-08-19] MEDS ORDERED: LVQ250 PO (15:39)
[2016-10-04] MEDS ORDERED: NRV5 PO (17:18)
[2016-10-04] MEDS ORDERED: HPRIS5M SQ (17:24)
== END 2016-05-05 20:10 | disposition home or self-care (01) | DRG 195 ==
LOC: ENRESERVDT → ENRESERVTM → C.EDB 21:41 → C.MED 05-04 02:41 → C.MS2W 05-04 20:24
PROVIDERS: ADMIT Hospitalist; ATTEND Internal Medicine
DX: J18.9 Pneumonia, unspecified organism (principal); M19.90 Unspecified osteoarthritis, unspecified site; M81.0 Age-related osteoporosis without current pathological fracture; E03.9 Hypothyroidism, unspecified; F43.23 Adjustment disorder with mixed anxiety and depressed mood; I67.9 Cerebrovascular disease, unspecified; N18.3 Chronic kidney disease, stage 3 (moderate); E78.5 Hyperlipidemia, unspecified; I12.9 Hypertensive chronic kidney disease with stage 1 through stage 4 chronic kidney disease, or unspecified chronic kidney disease; I45.81 Long QT syndrome; Z86.73 Personal history of transient ischemic attack (TIA), and cerebral infarction without residual deficits; Z79.02 Long term (current) use of antithrombotics/antiplatelets; Z79.899 Other long term (current) drug therapy

== ENCOUNTER → 2016-05-07 | Outpatient (CLI) | payer OTHER ==
[~2016-05-07] MED LIST changes: +ACET-1256 PO; +ATOR10TA82 PO; -ATOR10TA88 PO; +CEFP200T14 PO; +ENOX1INJ8 INJ; +HPRIS5M SQ; -LPR25 PO; +LVQ250 PO; +METO25TA56 PO; +NRV5 PO; +OXYC1TAB3 PO
--- NOTE | 2016-05-07 17:10 | DIAGNOSTIC IMAGING REPORT ---
ULTRASOUND VENOUS DOPPLER ULTRASOUND LEFT UPPER EXTREMITY CLINICAL HISTORY: LOCALIZED EDEMA, LEFT ARM SWELLING COMPARISON STUDY: None FINDINGS: No intraluminal thrombus was visualized within the left internal jugular, subclavian, axillary, brachial, radial, or ulnar veins. There is occlusive left basilic thrombus visualized the proximal forearm to the wrist. The cephalic vein appeared patent. IMPRESSION: Occlusive left basilic vein thrombus extending from the proximal forearm to the wrist Electronically signed by: Dennis Rowan M.D. 05/07/2016 5:08 PM Dictated Date/Time: 05/07/2016 5:06 PM
== END | disposition home or self-care (01) ==
LOC: C.ULTR 15:56
PROVIDERS: ATTEND Family Medicine
DX: R60.0 Localized edema (principal); M79.89 Other specified soft tissue disorders

== ENCOUNTER → 2016-05-18 | Day surgery (SDC) | payer OTHER ==
[2016-04-28 13:37] VITALS: Ht 165.1 cm; Wt 68.2 kg
[~2016-05-18] VITALS: Ht 165.1 cm; Wt 68.2 kg
[~2016-05-18] MED LIST changes: +500ML BSS 0.3ML EPI 1:1000PF IRRIG ONE; +ACETAMINOPHEN 325 MG TAB PO PRN; +AMVISC PLUS 0.8ML SYRINGE INT OCU ONE; +ATROPINE SULFATE 0.1 MG/ML 5ML SYR IV PRN; +BSS FLUSH ONE; -CEFP200T14 PO; +CYCLOPENTOLATE HCL 1% OP SOLN PER DROP CHARGE OPL SCH; +EpHEDrine SULFATE INJ 50 MG/ML AMP IV PRN; +EpINEphrine INJ 1MG/ML AMP 1 MG/ML AMP ONE; +GATIFLOXACIN OP SOLN PER DROP CHARGE OPL SCH; +KETOROLAC 0.5% OP SOLN PER DROP CHARGE OPL SCH; +LACTATED RINGER'S 1000ML 500 ML IV SCH; +LIDOCAINE 3.5% OPH GEL PER APPLICATION CHARGE ONE; +LIDOCAINE HCL 1% MPF 2 ML VIAL ONE; +MIDAZOLAM HCL 1 MG/ML 2ML VIAL ONE; +OCUCOAT 1 ML SOLN IO ONE; +ONDANSETRON INJ 2 MG/ML 2 ML VIAL IV PRN; +PHENYLEPHRINE HCL 10% OP SOLN PER DROP CHARGE OPL SCH; +PHENYLEPHRINE HCL 2.5% OP SOLN PER DROP CHARGE OPL SCH; +POVIDONE-IODINE OP SOLN 30 ML BTL ONE; +PROPARACAINE 0.5% OP SOLN PER DROP CHARGE OPL SCH; +SODIUM CHLORIDE 0.9% 500ML IV SCH; +TOBRAMYCIN/DEXAMETHASONE OPH OINT PER APPLN CHARGE ONE; +TROPICAMIDE 1% OP SOLN PER DROP CHARGE OPL SCH; +TRYPAN BLUE 0.06% FOR SURGI CENTER ONLY OP ONE; +[UNRECOGNIZED DRUG - REMARK] SCH
[2016-05-18] MEDS: PHENYLEPHRINE HCL 2.5% OP SOLN PER DROP CHARGE OPL SCH ×2 (07:14→07:19)
[2016-05-18] MEDS: TROPICAMIDE 1% OP SOLN PER DROP CHARGE OPL SCH ×2 (07:15→07:20)
[2016-05-18] MEDS: CYCLOPENTOLATE HCL 1% OP SOLN PER DROP CHARGE OPL SCH ×2 (07:16→07:21)
[2016-05-18] MEDS: KETOROLAC 0.5% OP SOLN PER DROP CHARGE OPL SCH ×2 (07:17→07:22)
[2016-05-18] MEDS: GATIFLOXACIN OP SOLN PER DROP CHARGE OPL SCH ×2 (07:18→07:28)
--- NOTE | 2016-05-18 07:33 | History & Physical Bridge - SC ---
H&P Re-Evaluation Bridge Note: I have examined the patient, reviewed the History & Physical and in the interval since the performance of the History & Physical I have noted the following changes of clinical significance: No changes noted
[2016-05-18 08:27] VITALS: TEMP 36.6
--- NOTE | 2016-05-18 08:27 | Discharge Instructions-SurgCtr ---
Discharge Instructions Date of Service May 18, 2016. Visit Reason for Visit: Cataract Left Eye Discharge Discharge Diagnosis / Problem: cataract Discharge Goals Goal(s): Improve function Activity Recommendations Activity Limitations: per Instructions/Follow-up section Anesthesia . Post Anesthesia Instructions: If you have had General Anesthesia or IV Sedation: * Do not drive today. * Resume driving when surgeon permits. * Do not make important decisions or sign legal documents today. * Call surgeon for: 1. Temperature elevations greater than 101 degrees F. 2. Uncontrollable pain. 3. Excessive bleeding. 4. Persistent nausea and vomiting. 5. Medication intolerance (nausea, vomiting or rash). * For nausea and vomiting use only clear liquids such as: tea, soda, bouillon until nausea subsides, then gradually increase diet as tolerated. * If you have any concerns or questions, call your surgeon's office. If physician is unavailable and it is an emergency, call 911 or go to the nearest emergency room. . Instructions / Follow-Up Instructions / Follow-Up ACTIVITY RECOMMENDATIONS: * No strenuous lifting, jogging or running for 4 days * No swimming or yard work for 1 week. * Limited bending is permitted, such as putting on shoes. RETURN TO SCHOOL/WORK: No work until seen by physician in office. MEDICATIONS: Resume previous medications unless instructed otherwise by your surgeon. This includes eye drops for glaucoma. Zymaxid/Gatifloxacin (ghotra cap) - one drop every 2 hours until bedtime Nevanac/Ilevro/Prolensa/Ketorolac (woodruff cap) - one drop every 4 hours until bedtime Prednisolone (white/pink cap, SHAKE WELL) - one drop every 2 hours until bedtime Starting tomorrow - all 3 drops every 4 hours until seen in the office Optive drops - as needed for discomfort SPECIAL CARE INSTRUCTIONS: * Wear eyeshield when sleeping, for four nights. * You may wear your own glasses or sunglasses while awake. * You may read or watch TV * You may shower and wash your face, but be gentle around the eye and pat dry. * Blurry vision and mild irritation are normal. * Call office if pain is more severe or vision becomes dark at . FOLLOW UP VISIT: Follow-up with Dr Dolan tomorrow. Diet Recommendations Home Diet: resume previous diet Procedures Procedures Performed: Left Eye Cataract Phacoemulisification With Intraocular Lens Implant Pending Studies Studies pending at discharge: no Medical Emergencies . Who to Call and When: Medical Emergencies: If at any time you feel your situation is an emergency, please call 911 immediately. . Non-Emergent Contact Non-Emergency issues call your: Sole Conforming Machine Operator . . "Provider Documentation" section prepared by Regan Dolan.
--- NOTE | 2016-05-18 08:29 | [facility] Operative Report ---
Operative Report Date of Service May 18, 2016. Operative Report 1. PREOPERATIVE DIAGNOSIS: Cataract of the left eye. 2. POSTOPERATIVE DIAGNOSIS: Same. 3. PROCEDURE: Phacoemulsification with intraocular lens implantation of the left eye. SURGEON: Dr. Regan Dolan. ANESTHESIA: Topical Lidocaine gel, 1% Non- Preserved intracameral Lidocaine, and monitored intravenous sedation. INDICATIONS FOR THE PROCEDURE: The patient is a 80 - year-old female with a history of cataract of the left eye causing significant visual impairment. The details of the proposed procedure were explained to the patient who asked appropriate questions and following discussion of all risks, benefits and alternatives agreed to have the procedure done. The patient had a mature cataract and therefore plans were made preoperatively to use Vision Blue dye. 4. OPERATION AND FINDINGS: DESCRIPTION OF PROCEDURE: After informed consent was obtained, the patient was brought to the Operating Room at the [facility]. The patient was placed in a supine position and then the left eye was prepped and draped in the usual sterile fashion for intraocular surgery. A drop of topical Lidocaine gel was placed in the operative eye. A wire lid speculum was then placed in the fornices. A corneal paracentesis was then created temporally. The Non-Preserved Lidocaine was then instilled into the anterior chamber. The anterior chamber was then pressurized with viscoelastic. A 2.0 mm clear corneal incision was then created temporally. Under an air bubble the anterior lens capsule was painted with Vision Blue dye. The excess dye was then irrigated from the eye using balanced salt solution. A cystotome was inserted into the anterior chamber and used to create a tear in the anterior lens capsule. This capsular tear was then used to create a small flap and the flap was dragged in a counterclockwise direction in order to create a continuous curvilinear capsulorrhexis. Hydrodissection was accomplished with balanced salt solution. Phacoemulsification of the lens nucleus was then performed in a standard [id number] technique. The phaco time was 2 minutes 14 seconds with an average power of 25 %. Ocucoat was repeatedly used to fill the anterior chamber during lens fragmentation. The remaining cortical material was removed using irrigation aspiration. The capsular bag was then filled with viscoelastic. A [employer]ch [employer] Lomb MI60L +22.0 diopters lens was then loaded into the injector and injected into the capsular bag. The remaining viscoelastic was removed with the irrigation aspiration handpiece. The wound was hydrated and then checked and found to be watertight. The intraocular pressure was checked and found to be adequate. The wire lid speculum was removed and the patient's face was cleaned and dried. TobraDex ointment was placed in the inferior fornix. The patient was discharged to the Recovery Room having tolerated the procedure well. There were no complications. The patient will be seen tomorrow in the office for follow-up. I attest to the content of the Intraoperative Record and any orders documented therein. Any exceptions are noted below.
--- NOTE | 2016-05-18 08:38 | Anesthesia Progress Nt - [facility] ---
Anesthesia Post Op Note Date & Time May 18, 2016 at 08:37 Vital Signs Pain Intensity: 0 Vital Signs Past 12 Hours Date Time Temp Pulse Resp B/P Pulse Ox O2 Delivery O2 Flow Rate FiO2 05/18/16 07:05 36.8 60 20 181/65 98 Room Air Notes Mental Status: alert / awake / arousable, participated in evaluation Pt Amnestic to Procedure: Yes Nausea / Vomiting: adequately controlled Pain: adequately controlled Airway Patency, RR, SpO2: stable & adequate BP & HR: stable & adequate Hydration State: stable & adequate Anesthetic Complications: no major complications apparent
[2016-05-18 08:52] VITALS: BP 141/55; PULSE 72; O2SAT 96
== END | disposition home or self-care (01) ==
LOC: X.SURG 06:51
PROVIDERS: ATTEND Ophthalmology
DX: H26.9 Unspecified cataract (principal); H54.7 Unspecified visual loss; M81.0 Age-related osteoporosis without current pathological fracture; E03.9 Hypothyroidism, unspecified; Z79.02 Long term (current) use of antithrombotics/antiplatelets

== ENCOUNTER 2016-08-16 09:56 | Inpatient (IN) | payer OTHER ==
[~2016-08-16] VITALS: Ht 162.6 cm; Wt 62.0 kg
[2016-08-16] VITALS (7 sets, daily range): BP systolic 144–187; BP diastolic 60–70; PULSE 57–74; TEMP 37.2–37.4; O2SAT 95–96; Ht 162.6 cm; Wt 62.0 kg
[~2016-08-16 09:56] MED LIST changes: -500ML BSS 0.3ML EPI 1:1000PF IRRIG ONE; -ACET-1256 PO; -ACETAMINOPHEN 325 MG TAB PO PRN; -AMVISC PLUS 0.8ML SYRINGE INT OCU ONE; -ATOR10TA82 PO; +ATOR10TA88 PO; -ATROPINE SULFATE 0.1 MG/ML 5ML SYR IV PRN; -BSS FLUSH ONE; -CYCLOPENTOLATE HCL 1% OP SOLN PER DROP CHARGE OPL SCH; -ENOX1INJ8 INJ; -EpHEDrine SULFATE INJ 50 MG/ML AMP IV PRN; -EpINEphrine INJ 1MG/ML AMP 1 MG/ML AMP ONE; -GATIFLOXACIN OP SOLN PER DROP CHARGE OPL SCH; -HPRIS5M SQ; -KETOROLAC 0.5% OP SOLN PER DROP CHARGE OPL SCH; -LACTATED RINGER'S 1000ML 500 ML IV SCH; -LIDOCAINE 3.5% OPH GEL PER APPLICATION CHARGE ONE; -LIDOCAINE HCL 1% MPF 2 ML VIAL ONE; -LVQ250 PO; -MIDAZOLAM HCL 1 MG/ML 2ML VIAL ONE; -NRV5 PO; -OCUCOAT 1 ML SOLN IO ONE; -ONDANSETRON INJ 2 MG/ML 2 ML VIAL IV PRN; -OXYC1TAB3 PO; -PHENYLEPHRINE HCL 10% OP SOLN PER DROP CHARGE OPL SCH; -PHENYLEPHRINE HCL 2.5% OP SOLN PER DROP CHARGE OPL SCH; -POVIDONE-IODINE OP SOLN 30 ML BTL ONE; -PROPARACAINE 0.5% OP SOLN PER DROP CHARGE OPL SCH; -SODIUM CHLORIDE 0.9% 500ML IV SCH; -TOBRAMYCIN/DEXAMETHASONE OPH OINT PER APPLN CHARGE ONE; -TROPICAMIDE 1% OP SOLN PER DROP CHARGE OPL SCH; -TRYPAN BLUE 0.06% FOR SURGI CENTER ONLY OP ONE; -[UNRECOGNIZED DRUG - REMARK] SCH
[2016-08-16] MEDS ORDERED: ONDANSETRON INJ 2 MG/ML 2 ML VIAL IV STA (10:20)
[2016-08-16] MEDS ORDERED: SODIUM CHLORIDE 0.9% 1000ML 1,000 ML IV STA ×2 (10:20→11:34)
[2016-08-16] MEDS ORDERED: ACET-1256 PO (10:21)
[2016-08-16 11:00] LABS: BASO % 0.2 %; BASO ABS # 0.03 K/uL (0-0.2); COMPLETE YES; EOS % 0.1 %; HEMATOCRIT 39.2 % (37-47); IG% 0.4 %; LYMPH % 4.8 %; LYMPH ABS # 0.93 K/uL (1.2-3.4); MEAN CELL VOLUME 83.9 fL (80-100); MEAN CORPUSCULAR HEMOGLOBIN 26.1 pg (25-34); MEAN CORPUSCULAR HGB CONC 31.1 g/dl (32-36); MEAN PLATELET VOLUME 9.6 fL (7.4-10.4); MONO % 7.2 %; NEUT % 87.3 %; PLATELET COUNT 239 K/uL (130-400); RED BLOOD COUNT 4.67 M/uL (4.2-5.4); WHITE BLOOD COUNT 19.23 K/uL (4.8-10.8)
[2016-08-16 11:22] LABS: ALT/SGPT 14 U/L (12-78); AST/SGOT 14 U/L (15-37); BLOOD UREA NITROGEN 19 mg/dl (7-18); BUN/CREATININE RATIO 15.9 (10-20); CALCIUM 8.4 mg/dl (8.5-10.1); CARBON DIOXIDE 30 mmol/L (21-32); CHLORIDE 100 mmol/L (98-107); GLUCOSE 128 mg/dl (70-99); MAGNESIUM 1.8 mg/dl (1.8-2.4); POTASSIUM 3.8 mmol/L (3.5-5.1); SODIUM 137 mmol/L (136-145)
[2016-08-16 11:31] LABS: ALKALINE PHOSPHATASE 90 U/L (45-117)
[2016-08-16 12:15] LABS: URINE APPEARANCE CLEAR (CLEAR); URINE BILIRUBIN NEG (NEG); URINE COLOR YELLOW; URINE NITRITE NEG (NEG); URINE PH 8.5 (4.5-7.5); URINE SPECIFIC GRAVITY 1.011 (1.000-1.030); UROBILINOGEN NEG (NEG); ZZUR CULT IF INDIC CLEAN CATCH NO
[2016-08-16 12:19] LABS: MANUAL MICROSCOPIC REQUIRED? NO; REVIEW REQ? NO
--- NOTE | 2016-08-16 12:37 | DIAGNOSTIC IMAGING REPORT ---
ABDOMEN 2VIEW W/PA CHEST RTN HISTORY:80 yearsFemalefever, vomiting COMPARISON: Chest radiograph 05/04/2016. TECHNIQUE: Frontal view of the chest with erect and supine views of the abdomen. FINDINGS: Cardiac silhouette is again mildly enlarged. There is atherosclerosis of the aorta. Linear subsegmental opacity in the left lung base suggest atelectasis mild left hemidiaphragm elevation. There is no pneumothorax or large pleural effusion. Bones are mildly demineralized. No gross pneumoperitoneum on the upright projection. The bowel gas pattern is nonobstructive. There is convex right curvature of the lumbar spine. Left hip arthroplasty noted with heterotopic ossification about the left greater trochanter. IMPRESSION: 1. Nonobstructive bowel gas pattern without evidence of pneumoperitoneum. 2. Mild left basilar atelectasis. The above report was generated using voice recognition software. It may contain grammatical, syntax or spelling errors. Electronically signed by: Jaime Chaparro 08/16/2016 12:36 PM Dictated Date/Time: 08/16/2016 12:34 PM
--- NOTE | 2016-08-16 13:29 | DIAGNOSTIC IMAGING REPORT ---
CT SCAN OF THE ABDOMEN AND PELVIS WITH IV CONTRAST CLINICAL HISTORY: Vomiting. Generalized weakness. COMPARISON STUDY: Abdominal radiographs dated 08/16/2016. TECHNIQUE: Following the IV administration of 115 cc of Optiray 320, CT scan of the abdomen and pelvis is performed from the lung bases to the proximal femora. Images are reviewed in the axial, sagittal, and coronal planes. IV contrast was administered without complication. Automated dose control exposure was utilized. CT DOSE: 718.43 mGycm FINDINGS: Lung bases: The heart is normal in size and without pericardial effusion. There are coronary artery calcifications. There is patchy airspace consolidation the left lung base with small left pleural effusion. The right lung base appears clear noting scarring versus atelectasis. Liver: The contrast-enhanced liver is normal in size, contour, and attenuation. There is no intrahepatic biliary ductal dilatation. The hepatic veins and portal veins are patent. Gallbladder: Unremarkable. Spleen: Normal in size and attenuation. Pancreas: Unremarkable. Adrenal glands: Unremarkable. Kidneys: The contrast enhanced kidneys are atrophic and without hydronephrosis. There are bilateral extrarenal pelvises. The kidneys enhance and excrete symmetrically. There is a 2.6 cm lesion arising from the upper pole of the right kidney. This does not meet CT criteria for a simple cyst. A subcentimeter cortical hypodensity in the lower pole the right kidney is too small for definitive characterization. Abdominal vasculature: The abdominal aorta is normal in course and caliber noting advanced atherosclerotic calcification. Bowel: The small bowel and colon are normal in course and caliber. There is mild colonic diverticulosis without CT evidence of acute diverticulitis. The appendix is well-visualized and normal. Peritoneum: There is no intraperitoneal free air or abdominal ascites. There is a small fat-containing umbilical hernia. Lymphadenopathy: None. Pelvic viscera: Evaluation of the pelvis is degraded by streak artifact from a left hip arthroplasty. The bladder, uterus, and adnexa are normal as visualized. Findings suggest pelvic floor prolapse. Skeletal structures: The skeletal structures are osteopenic. There is moderate lumbosacral spondylosis. No lytic or blastic lesions are seen. A left hip arthroplasty is in place. IMPRESSION: 1. There is dense airspace consolidation at the left lung base with small left pleural effusion. The appearance is typical for pneumonia/aspiration pneumonitis. Clinical correlation will be required and radiographic follow-up to resolution is recommended. 2. There are no acute infectious or inflammatory findings in the abdomen or pelvis. 3. There is a 2.6 cm lesion arising from the upper pole of the right kidney. This does not meet CT criteria for a simple cyst. Differential considerations include a complex/proteinaceous cyst or renal neoplasm. Follow-up with a nonemergent renal ultrasound is recommended for further assessment. 4. Mild colonic diverticulosis without CT evidence of acute diverticulitis. 5. Additional findings as above. Electronically signed by: Steve Laird M.D. 08/16/2016 1:27 PM Dictated Date/Time: 08/16/2016 1:21 PM
[2016-08-16] MEDS ORDERED: OPTIRAY 320 IV PRN (13:30)
[2016-08-16] MEDS: LEVAQUIN 750MG / 150ML D5W IV STA ×2 (13:41→14:20)
--- NOTE | 2016-08-16 14:19 | EMERGENCY ROOM VISIT NOTE ---
History Report prepared by Queenie: Elver Urias Under the Supervision of: Dr. Veronica Ku D.O. First contact with patient: 10:07 Chief Complaint: VOMITING Stated Complaint: FEVER,VOMITING,DIARRHEA,HEAVY BREATHING Nursing Triage Summary: triage note: pt reports nausea, vomitting, diarrhea and fever since last night. pt had tylenol at 0800 today. History of Present Illness The patient is a 80 year old female who presents to the Emergency Room with complaints of persistent illness beginning yesterday. She also complains of vomiting, diarrhea, non-productive cough and fevers. She states that she had one episode of diarrhea. The patient denies any bloody stool, urinary symptoms, dizziness, abdominal pain, or chest pain. Per family, the patient was found to have a fever of 101 degrees today. She notes that the patient appeared short of breath today as well. She states that the patient appeared normal yesterday, but had a decreased appetite. The patient has not had anything to eat today. She has a history of stroke, and hypertension. Source of History: patient, family Onset: Yesterday Quality: other (illness) Timing: other (persistent) Associated Symptoms: + fevers (101 degrees), + cough (non-productive), + vomiting, + diarrhea, No chest pain, No SOB, No abdominal pain, No hematochezia , No urinary symptoms Note: The patient denies any dizziness. Review of Systems See HPI for pertinent positives & negatives. A total of 10 systems reviewed and were otherwise negative. Past Medical & Surgical Medical Problems: (1) Adjustment reaction with anxiety and depression (2) CKD (chronic kidney disease) stage 3, GFR 30-59 ml/min (3) Dyslipidemia (4) History of CVA (cerebrovascular accident) (5) HTN (hypertension) (6) Hypothyroidism (7) Osteoarthritis (8) Osteoporosis Surgical Problems: (1) History of hip surgery (2) No significant past surgical history Family History Cancer Diabetes mellitus FH: kidney disease Hypertension Social History Smoking Status: Never Smoker Drug Use: none Marital Status: Housing Status: lives with family Occupation Status: retired Current/Historical Medications Scheduled Amlodipine (Norvasc), 5 MG PO QAM Atorvastatin (Lipitor), 10 MG PO QPM Calcium W/ Vitamins D & K (Viactiv), 1 TAB PO TID Clopidogrel (Plavix), 75 MG PO QAM Furosemide (Lasix), 40 MG PO QAM Levothyroxine Sodium (Levothyroxine Sodium), 25 MCG PO QAM Lisinopril (Zestril), 40 MG PO QAM Metoprolol Tartrate (Lopressor) (Lopressor), 12.5 MG PO BID Omeprazole (Prilosec), 20 MG PO HS Sertraline (Zoloft), 25 MG PO HS Scheduled PRN Docusate Sodium (Colace), 1 CAP PO BID PRN for CON Polyethylene Glycol 3350 (Miralax), 17 GM PO DAILY PRN for Constipation Allergies Coded Allergies: Aspirin (Verified Allergy, Severe, ANAPHYLAXIS, SWELLING, 08/16/16) Physical Exam Vital Signs Date Time Temp Pulse Resp B/P (MAP) Pulse Ox O2 Delivery O2 Flow Rate FiO2 08/16/16 14:56 60 16 08/16/16 14:26 76 17 08/16/16 14:25 96 Room Air 08/16/16 14:24 167/52 08/16/16 14:24 80 18 167/52 96 Room Air 08/16/16 14:05 86 08/16/16 13:56 81 15 08/16/16 13:29 137/42 08/16/16 12:26 75 19 08/16/16 12:04 76 18 137/42 97 Room Air 08/16/16 12:03 137/42 08/16/16 11:56 85 21 08/16/16 11:26 58 17 08/16/16 10:56 67 15 08/16/16 10:43 72 08/16/16 09:59 37.0 80 20 139/58 93 Room Air Physical Exam GENERAL: alert, well appearing, well nourished, no distress, non-toxic. Hard of hearing. EYE EXAM: normal conjunctiva, PERRL and EOM's grossly intact OROPHARYNX: no exudate, no erythema, lips, buccal mucosa, and tongue normal and mucous membranes are mildly dry. NECK: supple, no nuchal rigidity, no adenopathy, non-tender LUNGS: Clear to auscultation. Normal chest wall mechanics HEART: no murmurs, S1 normal and S2 normal ABDOMEN: abdomen soft, non-tender, normo-active bowel sounds, no masses, no rebound or guarding. BACK: Back is symmetrical on inspection and there is no deformity, no midline tenderness, no CVA tenderness. SKIN: no rashes and no bruising UPPER EXTREMITIES: upper extremities are grossly normal. LOWER EXTREMITIES: No pitting edema. NEURO EXAM: Normal sensorium, cranial nerves II-XII grossly intact, normal speech, no gross weakness of arms, no gross weakness of legs. Medical Decision & Procedures ER Provider Diagnostic Interpretation: Radiology results have been interpreted by the radiologist and reviewed by me. ABDOMEN 2VIEW W/PA CHEST RTN FINDINGS: Cardiac silhouette is again mildly enlarged. There is atherosclerosis of the aorta. Linear subsegmental opacity in the left lung base suggest atelectasis mild left hemidiaphragm elevation. There is no pneumothorax or large pleural effusion. Bones are mildly demineralized. No gross pneumoperitoneum on the upright projection. The bowel gas pattern is nonobstructive. There is convex right curvature of the lumbar spine. Left hip arthroplasty noted with heterotopic ossification about the left greater trochanter. IMPRESSION: 1. Nonobstructive bowel gas pattern without evidence of pneumoperitoneum. 2. Mild left basilar atelectasis. The above report was generated using voice recognition software. It may contain grammatical, syntax or spelling errors. Electronically signed by: Jaime Chaparro CT SCAN OF THE ABDOMEN AND PELVIS WITH IV CONTRAST CLINICAL HISTORY: Vomiting. Generalized weakness. COMPARISON STUDY: Abdominal radiographs dated 08/16/2016. TECHNIQUE: Following the IV administration of 115 cc of Optiray 320, CT scan of the abdomen and pelvis is performed from the lung bases to the proximal femora. Images are reviewed in the axial, sagittal, and coronal planes. IV contrast was administered without complication. Automated dose control exposure was utilized. CT DOSE: 718.43 mGycm FINDINGS: Lung bases: The heart is normal in size and without pericardial effusion. There are coronary artery calcifications. There is patchy airspace consolidation the left lung base with small left pleural effusion. The right lung base appears clear noting scarring versus atelectasis. Liver: The contrast-enhanced liver is normal in size, contour, and attenuation. There is no intrahepatic biliary ductal dilatation. The hepatic veins and portal veins are patent. Gallbladder: Unremarkable. Spleen: Normal in size and attenuation. Pancreas: Unremarkable. Adrenal glands: Unremarkable. Kidneys: The contrast enhanced kidneys are atrophic and without hydronephrosis. There are bilateral extrarenal pelvises. The kidneys enhance and excrete symmetrically. There is a 2.6 cm lesion arising from the upper pole of the right kidney. This does not meet CT criteria for a simple cyst. A subcentimeter cortical hypodensity in the lower pole the right kidney is too small for definitive characterization. Abdominal vasculature: The abdominal aorta is normal in course and caliber noting advanced atherosclerotic calcification. Bowel: The small bowel and colon are normal in course and caliber. There is mild colonic diverticulosis without CT evidence of acute diverticulitis. The appendix is well-visualized and normal. Peritoneum: There is no intraperitoneal free air or abdominal ascites. There is a small fat-containing umbilical hernia. Lymphadenopathy: None. Pelvic viscera: Evaluation of the pelvis is degraded by streak artifact from a left hip arthroplasty. The bladder, uterus, and adnexa are normal as visualized. Findings suggest pelvic floor prolapse. Skeletal structures: The skeletal structures are osteopenic. There is moderate lumbosacral spondylosis. No lytic or blastic lesions are seen. A left hip arthroplasty is in place. IMPRESSION: 1. There is dense airspace consolidation at the left lung base with small left pleural effusion. The appearance is typical for pneumonia/aspiration pneumonitis. Clinical correlation will be required and radiographic follow-up to resolution is recommended. 2. There are no acute infectious or inflammatory findings in the abdomen or pelvis. 3. There is a 2.6 cm lesion arising from the upper pole of the right kidney. This does not meet CT criteria for a simple cyst. Differential considerations include a complex/proteinaceous cyst or renal neoplasm. Follow-up with a nonemergent renal ultrasound is recommended for further assessment. 4. Mild colonic diverticulosis without CT evidence of acute diverticulitis. 5. Additional findings as above. Electronically signed by: Steve Laird M.D. 08/16/2016 1:27 PM Dictated Date/Time: 08/16/2016 1:21 PM Laboratory Results Test 08/16/16 10:39 08/16/16 11:50 Immature Granulocyte % (Auto) 0.4 % White Blood Count 19.23 K/uL (4.8-10.8) Red Blood Count 4.67 M/uL (4.2-5.4) Hemoglobin 12.2 g/dL (12.0-16.0) Hematocrit 39.2 % (37-47) Mean Corpuscular Volume 83.9 fL (80-100) Mean Corpuscular Hemoglobin 26.1 pg (25-34) Mean Corpuscular Hemoglobin Concent 31.1 g/dl (32-36) Platelet Count 239 K/uL (130-400) Mean Platelet Volume 9.6 fL (7.4-10.4) Neutrophils (%) (Auto) 87.3 % Lymphocytes (%) (Auto) 4.8 % Monocytes (%) (Auto) 7.2 % Eosinophils (%) (Auto) 0.1 % Basophils (%) (Auto) 0.2 % Neutrophils # (Auto) 16.79 K/uL (1.4-6.5) Lymphocytes # (Auto) 0.93 K/uL (1.2-3.4) Monocytes # (Auto) 1.38 K/uL (0.11-0.59) Eosinophils # (Auto) 0.02 K/uL (0-0.5) Basophils # (Auto) 0.03 K/uL (0-0.2) Immature Granulocyte # (Auto) 0.08 K/uL (0.00-0.02) Prothrombin Time 11.9 SECONDS (9.0-12.0) Prothromb Time International Ratio 1.1 (0.9-1.1) Magnesium Level 1.8 mg/dl (1.8-2.4) Total Bilirubin 0.5 mg/dl (0.2-1) Aspartate Amino Transf (AST/SGOT) 14 U/L (15-37) Alanine Aminotransferase (ALT/SGPT) 14 U/L (12-78) Alkaline Phosphatase 90 U/L (45-117) Troponin I < 0.015 ng/ml (0-0.045) Total Protein 6.9 gm/dl (6.4-8.2) Albumin 3.4 gm/dl (3.4-5.0) Globulin 3.5 gm/dl (2.5-4.0) Albumin/Globulin Ratio 1.0 (0.9-2) Lipase 128 U/L (73-393) Urine Color YELLOW Urine Appearance CLEAR (CLEAR) Urine pH 8.5 (4.5-7.5) Urine Specific [place] 1.011 (1.000-1.030) Urine Protein NEG (NEG) Urine Glucose (UA) NEG (NEG) Urine Ketones NEG (NEG) Urine Occult Blood 1+ (NEG) Urine Nitrite NEG (NEG) Urine Bilirubin NEG (NEG) Urine Urobilinogen NEG (NEG) Urine Leukocyte Esterase NEG (NEG) Urine WBC (Auto) 1-5 /hpf (0-5) Urine RBC (Auto) 5-10 /hpf (0-4) Urine Hyaline Casts (Auto) 1-5 /lpf (0-5) Urine Epithelial Cells (Auto) 10-20 /lpf (0-5) Urine Bacteria (Auto) NEG (NEG) Laboratory results per my review. Medications Administered Medications (Trade) Dose Ordered Sig/Ebony Route Start Time Stop Time Status Last Admin Dose Admin Sodium Chloride 1,000 ml @ 999 mls/hr Q1H1M STAT IV 08/16/16 10:20 08/16/16 11:20 DC 08/16/16 11:31 999 MLS/HR Sodium Chloride 1,000 ml @ 999 mls/hr Q1H1M STAT IV 08/16/16 11:34 08/16/16 12:34 DC 08/16/16 12:06 999 MLS/HR Piperacillin Sod/ Tazobactam Sod 3.375 gm/Dextrose 115 ml @ 230 mls/hr NOW ONCE IV 08/16/16 14:30 08/16/16 14:59 DC 08/16/16 14:56 230 MLS/HR ECG Indication: vomiting Rate (beats per minute): 69 Rhythm: normal sinus Findings: T-wave inversion (lead 3), no acute ischemic change, no ectopy, other (normal axis. ) ED Course 1011: The patient was evaluated in room B11B. A complete history and physical exam was performed. 1020: Ordered Zofran Inj 4 mg IV, Sodium Chloride 1000 ml @ 999 mls/hr IV. 1143: Ordered Sodium Chloride 1000 ml @ 999 mls/hr IV. 1341: Ordered Levaquin / D5W 750 mg IV. 1407: Upon reevaluation, the patient is resting comfortably. I discussed the findings and the treatment plan with the patient. She expresses agreement and understanding. I spoke with Page MOLINA of the [facility]. The patient will be evaluated for further management. Medical Decision Differential diagnosis: Etiologies such as gastroenteritis, food borne illness, infections, appendicitis , diverticulitis, inflammatory bowel disease, obstruction, GI bleed, biliary pathology, as well as others were entertained. Medication Reconciliation: I attest that I have personally reviewed the patient' s current medication list. Blood pressure screening: Patient was found to have a slightly elevated blood pressure due to circumstances. I do not believe that the patient requires hypertension monitoring. Given prior occurrences of pneumonia, patient's advanced age, generalized weakness and vomiting, patient admitted as a precaution for continued monitoring and IV antibiotics. Discussed antibiotics with admitting provider. They preferred Zosyn in case of possible aspiration due to reported vomiting. Doubt bacteremia/sepsis, patient not overtly hypoxic, no recurrent vomiting on the emergency room. Vital signs otherwise stable. Patient and family verbalized understanding of results and plan. Patient mildly clinically dehydrated, was given IV fluids in the emergency room, lactic acidosis likely secondary to dehydration and vomiting. No evidence of other concurrent GI or pathology. Consults Time Called: [id number] Consulting Physician: Page Germain Returned Call: [phone] I reviewed the patient's case with Page MOLINA. Janel will evaluate the patient for further management. Impression Primary Impression: Pneumonia Additional Impressions: Nausea and vomiting Generalized weakness Scribe Attestation The scribe's documentation has been prepared under my direction and personally reviewed by me in its entirety. I confirm that the note above accurately reflects all work, treatment, procedures, and medical decision making performed by me. Departure Information Dispostion Being Evaluated By Hospitalist Cathleen Lester D.O. (PCP) Patient Instructions My [facility] Problem Qualifiers Primary Impression: Pneumonia Pneumonia type: due to unspecified organism Laterality: left Lung location : lower lobe of lung Qualified Codes: J18.1 - Lobar pneumonia, unspecified organism Additional Impressions: Nausea and vomiting Vomiting type: unspecified Vomiting Intractability: non-intractable Qualified Codes: R11.2 - Nausea with vomiting, unspecified
[2016-08-16] MEDS ORDERED: PIPERACILLIN/TAZOBACTAM 3.375 GM/100ML D5W IV STA (14:21)
[2016-08-16] MEDS ORDERED: PIPERACILL/TAZOBAC IV 3.375 GM in DEXTROSE 5% 100ML IV ONE (14:30)
[2016-08-16] MEDS ORDERED: ACETAMINOPHEN 325 MG TAB PO PRN (15:00)
[2016-08-16] MEDS ORDERED: PROMETHAZINE HCL INJ 12.5 MG in SODIUM CHLORIDE 0.9% 50ML 50 ML IV PRN (15:15)
[2016-08-16] MEDS ORDERED: PIPERACILL/TAZOBAC CONSULT ACTIVE PRN (15:24)
--- NOTE | 2016-08-16 16:05 | DIAGNOSTIC IMAGING REPORT ---
ULTRASOUND KIDNEYS AND BLADDER CLINICAL HISTORY: Follow-up right renal lesion. COMPARISON STUDY: Abdominal CT dated 08/16/2016. TECHNIQUE: Real-time, grayscale, and color flow sonography of the kidneys and bladder is performed. Images are reviewed in the transverse and longitudinal planes. FINDINGS: Kidneys: The kidneys are atrophic. The right kidney measures 9.8 x 4.4 x 3.5 cm and the left kidney measures 8.7 x 5.4 x 4.6 cm. There is no hydronephrosis. No shadowing renal calculi are identified. Again seen is a complex lesion seen arising from the upper pole of the right kidney. This measures 2.1 x 1.8 x 2.1 cm. This demonstrates internal echoes with no flow shown on color imaging. No perinephric fluid is identified. Bladder: The bladder is normal in appearance. Bilateral ureteral jets were seen. IMPRESSION: 1. The kidneys are atrophic and without hydronephrosis. 2. The bladder is normal in appearance. 3. The complex 2.1 cm right renal lesion remains indeterminant. Nonemergent follow-up with a renal protocol MRI or CT scan will be required for further assessment. Electronically signed by: Steve Laird M.D. 08/16/2016 4:04 PM Dictated Date/Time: 08/16/2016 4:02 PM
[2016-08-16 17:02] LABS: INR 1.1 (0.9-1.1); PROTHROMBIN TIME (PATIENT) 11.9 SECONDS (9.0-12.0)
[2016-08-16] MEDS: SODIUM CHLORIDE 0.9% 1000ML 1,000 ML IV SCH (17:02)
--- NOTE | 2016-08-16 18:19 | History and Physical ---
History & Physical Date & Time of Service: Aug 16, 2016 ~ 14:30 Chief Complaint: Shortness of Breath, Fever Primary Care Physician: Cathleen Infante D.O. History of Present Illness 80 year old female who presents to the ER with shortness of breath and fever. Patient reports she had a poor appetite last night and went to bed early. She reports she was up for most of the night with vomiting and diarrhea. Granddaughter in law is at the bedside and reports that this morning she was walking down the [place] and she appears disheveled and short of breath. She took her temperature and it was 101. Patient denies cough and sputum production. She reports her GI symptoms have resolved. Had a bowel movement in the ED that was formed. She denies hematemesis, coffee ground emesis, BRBPR, or dark tarry stools. She denies chest pain. No lightheadedness or dizziness. She denies urinary symptoms. In the ER, patient's WBC is 19K, lactic acid is 2.4. CT abd/ pelvis is negative for acute GI problem however is showing left lung base consolidation. Patient was given IVF and IV Zosyn. 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 (2) CKD (chronic kidney disease) stage 3, GFR 30-59 ml/min Status: Chronic (3) Dyslipidemia Status: Chronic (4) History of CVA (cerebrovascular accident) Status: Chronic (5) HTN (hypertension) Status: Chronic (6) Hypothyroidism Status: Chronic (7) Osteoarthritis Status: Chronic (8) Osteoporosis Status: Chronic Surgical Problems: (1) No significant past surgical history Status: Chronic Family History non contributory due to patient's advanced age Social History Smoking Status: Never Smoker Alcohol Use: none Housing status: lives with family Immunizations History of Influenza Vaccine: Yes Influenza Vaccine Date: Nov 14, 2015 History of Tetanus Vaccine?: Yes Tetanus Immunization Date: Dec 21, 2013 History of Pneumococcal: Yes Pneumococcal Date: Nov 14, 2015 Multi-Drug Resistant Organisms History of MDRO: No Allergies Coded Allergies: Aspirin (Verified Allergy, Severe, ANAPHYLAXIS, SWELLING, 08/16/16) Home Medications Scheduled Amlodipine (Norvasc), 5 MG PO QAM Atorvastatin (Lipitor), 10 MG PO QPM Calcium W/ Vitamins D & K (Viactiv), 1 TAB PO TID Clopidogrel (Plavix), 75 MG PO QAM Furosemide (Lasix), 40 MG PO QAM Levofloxacin (Levofloxacin), 250 MG PO DAILY Levothyroxine Sodium (Levothyroxine Sodium), 25 MCG PO QAM Lisinopril (Zestril), 40 MG PO QAM Metoprolol Tartrate (Lopressor) (Lopressor), 12.5 MG PO BID Omeprazole (Prilosec), 20 MG PO HS Sertraline (Zoloft), 25 MG PO HS Scheduled PRN Docusate Sodium (Colace), 1 CAP PO BID PRN for CON Polyethylene Glycol 3350 (Miralax), 17 GM PO DAILY PRN for Constipation Review of Systems ROS per HPI, all other systems reviewed and negative Physical Exam Vital Signs Date Time Temp Pulse Resp B/P (MAP) Pulse Ox O2 Delivery O2 Flow Rate FiO2 08/16/16 16:30 96 Room Air 08/16/16 16:22 37.4 59 18 171/70 (103) 96 Room Air 08/16/16 15:32 37.0 65 18 151/55 95 08/16/16 15:26 65 18 151/55 95 08/16/16 14:56 60 16 08/16/16 14:26 76 17 08/16/16 14:25 96 Room Air 08/16/16 14:24 167/52 08/16/16 14:24 80 18 167/52 96 Room Air 08/16/16 14:05 86 08/16/16 13:56 81 15 08/16/16 13:29 137/42 08/16/16 12:26 75 19 08/16/16 12:04 76 18 137/42 97 Room Air 08/16/16 12:03 137/42 08/16/16 11:56 85 21 08/16/16 11:26 58 17 08/16/16 10:56 67 15 08/16/16 10:43 72 08/16/16 09:59 37.0 80 20 139/58 93 Room Air General Appearance: no apparent distress Head: normocephalic Eyes: normal inspection ENT: hearing grossly normal Neck: supple, no JVD Respiratory/Chest: no respiratory distress, + crackles (left base) Cardiovascular: regular rate, rhythm, no edema, normal peripheral pulses Abdomen/GI: normal bowel sounds, non tender, soft Extremities/Musculoskelatal: normal inspection, no calf tenderness Neurologic/Psych: no motor/sensory deficits, alert, normal mood/affect, oriented x 3 Skin: normal color, warm/dry Diagnostics Laboratory Results Results Past 24 Hours Test 08/16/16 10:39 08/16/16 11:50 08/16/16 16:22 Range/Units White Blood Count 19.23 4.8-10.8 K/uL Red Blood Count 4.67 4.2-5.4 M/uL Hemoglobin 12.2 12.0-16.0 g/dL Hematocrit 39.2 37-47 % Mean Corpuscular Volume 83.9 80-100 fL Mean Corpuscular Hemoglobin 26.1 25-34 pg Mean Corpuscular Hemoglobin Concent 31.1 32-36 g/dl Platelet Count 239 130-400 K/uL Mean Platelet Volume 9.6 7.4-10.4 fL Neutrophils (%) (Auto) 87.3 % Lymphocytes (%) (Auto) 4.8 % Monocytes (%) (Auto) 7.2 % Eosinophils (%) (Auto) 0.1 % Basophils (%) (Auto) 0.2 % Neutrophils # (Auto) 16.79 1.4-6.5 K/uL Lymphocytes # (Auto) 0.93 1.2-3.4 K/uL Monocytes # (Auto) 1.38 0.11-0.59 K/uL Eosinophils # (Auto) 0.02 0-0.5 K/uL Basophils # (Auto) 0.03 0-0.2 K/uL RDW Standard Deviation 44.6 36.4-46.3 fL RDW Coefficient of Variation 14.5 11.5-14.5 % Immature Granulocyte % (Auto) 0.4 % Immature Granulocyte # (Auto) 0.08 0.00-0.02 K/uL Prothrombin Time 11.9 9.0-12.0 SECONDS Prothromb Time International Ratio 1.1 0.9-1.1 Sodium Level 137 136-145 mmol/L Potassium Level 3.8 3.5-5.1 mmol/L Chloride Level 100 98-107 mmol/L Carbon Dioxide Level 30 21-32 mmol/L Anion Gap 7.0 3-11 mmol/L Blood Urea Nitrogen 19 7-18 mg/dl Creatinine 1.20 0.60-1.20 mg/dl Est Creatinine Clear Calc Drug Dose 31.2 ml/min Estimated GFR () 48.7 Estimated GFR (Non- 42.1 BUN/Creatinine Ratio 15.9 10-20 Random Glucose 128 70-99 mg/dl Lactic Acid Level 2.4 2.8 0.4-2.0 mmol/L Calcium Level 8.4 8.5-10.1 mg/dl Magnesium Level 1.8 1.8-2.4 mg/dl Total Bilirubin 0.5 0.2-1 mg/dl Aspartate Amino Transf (AST/SGOT) 14 15-37 U/L Alanine Aminotransferase (ALT/SGPT) 14 12-78 U/L Alkaline Phosphatase 90 45-117 U/L Troponin I < 0.015 0-0.045 ng/ml Total Protein 6.9 6.4-8.2 gm/dl Albumin 3.4 3.4-5.0 gm/dl Globulin 3.5 2.5-4.0 gm/dl Albumin/Globulin Ratio 1.0 0.9-2 Lipase 128 73-393 U/L Urine Color YELLOW Urine Appearance CLEAR CLEAR Urine pH 8.5 4.5-7.5 Urine Specific [place] 1.011 1.000-1.030 Urine Protein NEG NEG Urine Glucose (UA) NEG NEG Urine Ketones NEG NEG Urine Occult Blood 1+ NEG Urine Nitrite NEG NEG Urine Bilirubin NEG NEG Urine Urobilinogen NEG NEG Urine Leukocyte Esterase NEG NEG Urine WBC (Auto) 1-5 0-5 /hpf Urine RBC (Auto) 5-10 0-4 /hpf Urine Hyaline Casts (Auto) 1-5 0-5 /lpf Urine Epithelial Cells (Auto) 10-20 0-5 /lpf Urine Bacteria (Auto) NEG NEG Microbiology Results 08/16/16 Blood Culture, Received Pending 08/16/16 Blood Culture, Received Pending Diagnostic Radiology CXR IMPRESSION: 1. Nonobstructive bowel gas pattern without evidence of pneumoperitoneum. 2. Mild left basilar atelectasis. CT ABD/PELVIS IMPRESSION: 1. There is dense airspace consolidation at the left lung base with small left pleural effusion. The appearance is typical for pneumonia/aspiration pneumonitis. Clinical correlation will be required and radiographic follow-up to resolution is recommended. 2. There are no acute infectious or inflammatory findings in the abdomen or pelvis. 3. There is a 2.6 cm lesion arising from the upper pole of the right kidney. This does not meet CT criteria for a simple cyst. Differential considerations include a complex/proteinaceous cyst or renal neoplasm. Follow-up with a nonemergent renal ultrasound is recommended for further assessment. 4. Mild colonic diverticulosis without CT evidence of acute diverticulitis. 5. Additional findings as above. Impression Assessment and Plan ASPIRATION PNEUMONIA POSSIBLE EARLY SEPSIS - admit to med/surg - patient presenting with shortness of breath and fever and multiple episodes of vomiting and diarrhea throughout the night; in the ED, found to have LLL consolidation - suspect aspiration from vomiting - possible early sepsis - WBC 19K, lactic acid 2.4; will give IVF and repeat lactate; other vitals stable - s/p Zosyn in the ED, will continue with - will start Prednisone 40mg daily x 5 days - blood and sputum cultures - currently saturating well on room air NAUSEA, VOMITING, DIARRHEA - symptoms resolved - ? viral gastroenteritis - will check stool studies - CT abd/pelvis negative for acute abdominal findings RIGHT KIDNEY LESION - noted on CT - will check US HTN - BP controlled, continue lisinopril - will hold furosemide while giving IVF HX CVA - continue ASA, Plavix, and statin HYPOTHYROIDISM - continue levothyroxine DVT PROPHYLAXIS - SQ Lovenox CODE STATUS - Patient is a full code as per my discussion with her. DISPO - In my clinical judgment this beneficiary meets acute admission criteria, established by [facility], that includes being hospitalized through two midnights. Attending addendum: Agree with the above H&P; please see above for more details. Patient was brought in by her family members today as patient was SOB, coughing and was not feeling well. She apparently also had diarrhea and vomiting last evening. The patient reports feeling better since being in the ER, but reports feeling unwell. No known sick contacts. No recent ingestion of undercooked or unusual food. No recent medication changes. Cardiac: RR, S1 and S2 auscultated GI: soft, NT, ND, + bowel sounds Respiratory: coarse breath sounds, no wheezes PNEUMONIA: likely aspiration -patient to have speech evaluation -will treat as early sepsis with IV fluids, abx zosyn and vanco pending MRSA screen -obtain blood and sputum cultures -repeat CBC in AM -repeat CXR if not improving NV/D: -obtain stool cultures -most likely from viral gastro/enteritis -supportive care/IV fluids Advanced Directives Existing Living Will: Yes Existing Power of Rewinder Operator: Yes VTE Prophylaxis VTE Risk Assessment Done? Y/N: Yes Risk Level: Moderate
[2016-08-16] MEDS: ATORVASTATIN 10 MG TAB PO SCH (20:44)
[2016-08-16] MEDS: METOPROLOL TARTRATE 25 MG TAB PO SCH (20:45)
[2016-08-16] MEDS: SERTRALINE HCL 50 MG TAB PO SCH (20:47)
[2016-08-16] MEDS: ENOXAPARIN 40 MG/0.4 ML SYR SQ SCH (20:47)
[2016-08-16] MEDS: PIPERACILL/TAZOBAC IV 3.375 GM in DEXTROSE 5% 100ML 100 ML IV SCH (20:48)
[2016-08-16] MEDS: CALCIUM 600MG + VIT D 400 IU TAB PO SCH (20:48)
[2016-08-16] MEDS: PANTOprazole SOD 40 MG TAB PO SCH (21:14)
[2016-08-17] MEDS: SODIUM CHLORIDE 0.9% 1000ML 1,000 ML IV SCH ×2 (03:55→11:26)
[2016-08-17] MEDS: PIPERACILL/TAZOBAC IV 3.375 GM in DEXTROSE 5% 100ML 100 ML IV SCH ×3 (03:56→20:18)
[2016-08-17] MEDS: LEVOTHYROXINE 25 MCG TAB PO SCH (05:30)
[2016-08-17 07:20] LABS: HEMATOCRIT 34.1 % (37-47); MEAN CORPUSCULAR HEMOGLOBIN 27.1 pg (25-34); MEAN CORPUSCULAR HGB CONC 32.3 g/dl (32-36); PLATELET COUNT 201 K/uL (130-400); RED BLOOD COUNT 4.06 M/uL (4.2-5.4); WHITE BLOOD COUNT 13.75 K/uL (4.8-10.8)
[2016-08-17 07:37] VITALS: BP 124/65; PULSE 46; TEMP 36.5; O2SAT 97
[2016-08-17 07:54] LABS: BUN/CREATININE RATIO 14.5 (10-20); CALCIUM 7.6 mg/dl (8.5-10.1); CREATININE 0.87 mg/dl (0.60-1.20); POTASSIUM 4.1 mmol/L (3.5-5.1)
[2016-08-17] MEDS: CALCIUM 600MG + VIT D 400 IU TAB PO SCH ×3 (08:59→21:19)
[2016-08-17] MEDS: METOPROLOL TARTRATE 25 MG TAB PO SCH ×2 (08:59→21:18)
[2016-08-17] MEDS: AMLODIPINE BESYLATE 5 MG TAB PO SCH (09:00)
[2016-08-17] MEDS: LISINOPRIL 40 MG TAB PO SCH (09:00)
[2016-08-17] MEDS: CLOPIDOGREL BISULFATE 75 MG TAB PO SCH (09:00)
[2016-08-17 10:37] VITALS: BP 157/63; PULSE 62; O2SAT 97
[2016-08-17 15:45] VITALS: BP 136/66; PULSE 73; TEMP 36.3; O2SAT 97
--- NOTE | 2016-08-17 17:22 | Progress Note ---
Internal Med Progress Note Date of Service: Aug 17, 2016. Provider Documentation: SUBJECTIVE: denies of any cough of SOB pt able to answer most of the questions appropriately but appears to be forgetful sometimes OBJECTIVE: Vital Signs-as noted below Exam: General-elderly female ,no sign of distress Eyes-sclera non icteric ENT-NAD Neck-neck supple, no JVD Lungs-CTA Heart-regular S1/S2 Abdomen-soft, non tender Extremities-no lower ext edema Neuro-forgetfulness, ( baseline dementia ? ) no focal deficit noted Lab data as noted below. ASSESSMENT & PLAN: ASPIRATION PNEUMONIA/SEPSIS - patient presented with shortness of breath and fever and multiple episodes of vomiting and diarrhea throughout the night; Cxray shows LLL consolidation - suspect aspiration from vomiting - meets criteria for sepsis - WBC 19K, lactic acid 2.4; clinically improved leukocytosis has improved , lactic acid level normalized with IVF - cont IV Zosyn - no evidence of wheezing d/c Prednisone - blood and sputum cultures ordered -will follow report speech eval requested to asses any baseline dysphagia NAUSEA, VOMITING, DIARRHEA - symptoms resolved - possible viral gastroenteritis - tolerating diet well - CT abd/pelvis negative for acute abdominal findings RIGHT KIDNEY LESION - noted on CT abdomen /pelvis - renal US : The complex 2.1 cm right renal lesion remains indeterminant. Nonemergent follow-up with a renal protocol MRI or CT scan will be required for further assessment. urology eval requested HTN - BP controlled, continue lisinopril - HX CVA - continue ASA, Plavix, and statin HYPOTHYROIDISM - continue levothyroxine DVT PROPHYLAXIS - SQ Lovenox CODE STATUS - Full code DISPOSITION PT/OT eval appreciated possible discharge home with family support when medically stable Medicine follow up with Dr Infante Vital Signs: Date Time Temp Pulse Resp B/P (MAP) Pulse Ox O2 Delivery O2 Flow Rate FiO2 08/17/16 15:45 36.3 73 18 136/66 (89) 97 Room Air 08/17/16 10:37 62 97 08/17/16 07:52 Room Air 08/17/16 07:37 36.5 46 16 124/65 (84) 97 Room Air 08/16/16 23:50 Room Air 08/16/16 23:04 37.3 57 18 146/67 (93) 95 Room Air 08/16/16 21:54 144/64 (90) 08/16/16 20:57 71 187/60 (102) 08/16/16 18:42 37.2 74 166/65 (98) Lab Results: Results Past 24 Hours Test 08/16/16 22:14 08/17/16 06:47 Range/Units Lactic Acid Level 0.9 0.4-2.0 mmol/L White Blood Count 13.75 4.8-10.8 K/uL Red Blood Count 4.06 4.2-5.4 M/uL Hemoglobin 11.0 12.0-16.0 g/dL Hematocrit 34.1 37-47 % Mean Corpuscular Volume 84.0 80-100 fL Mean Corpuscular Hemoglobin 27.1 25-34 pg Mean Corpuscular Hemoglobin Concent 32.3 32-36 g/dl RDW Standard Deviation 44.9 36.4-46.3 fL RDW Coefficient of Variation 14.5 11.5-14.5 % Platelet Count 201 130-400 K/uL Mean Platelet Volume 10.0 7.4-10.4 fL Sodium Level 140 136-145 mmol/L Potassium Level 4.1 3.5-5.1 mmol/L Chloride Level 106 98-107 mmol/L Carbon Dioxide Level 28 21-32 mmol/L Anion Gap 6.0 3-11 mmol/L Blood Urea Nitrogen 13 7-18 mg/dl Creatinine 0.87 0.60-1.20 mg/dl Est Creatinine Clear Calc Drug Dose 43.1 ml/min Estimated GFR () 71.9 Estimated GFR (Non- 62.0 BUN/Creatinine Ratio 14.5 10-20 Random Glucose 164 70-99 mg/dl Calcium Level 7.6 8.5-10.1 mg/dl
--- NOTE | 2016-08-17 17:46 | Progress Note ---
Progress Note Date of Service Aug 17, 2016. Progress Note ATTENDING NOTE : spoke with Grand Daughter in Law ( Otto phone # [phone] ) given update family mentions that at baseline pt is alert , and oriented concern for possible TIA as pt had similar presentation on June 2015 , found to have a mini stroke CT head with out contrast ordered
[2016-08-17] MEDS: ENOXAPARIN 40 MG/0.4 ML SYR SQ SCH (18:26)
--- NOTE | 2016-08-17 20:05 | DIAGNOSTIC IMAGING REPORT ---
CT HEAD WITHOUT CONTRAST (CT) CLINICAL HISTORY: Change in mental status. Possible stroke. COMPARISON STUDY: 06/11/2015 TECHNIQUE: Axial CT of the brain is performed from the vertex to the skull base. IV contrast was not administered for this examination. CT DOSE: 537.48 mGy.cm FINDINGS: No intra or extra-axial mass lesions are visualized. There is no CT evidence of acute cortical infarction. There is no evidence of midline shift. There is no acute hemorrhage. No calvarial fractures are visualized. There are patchy white matter hypodensities likely on a small vessel basis. There is an old right anterior parietal infarct. There is an old right basal ganglia infarct. There is no evidence of pathologic ventricular dilatation. There is no evidence of acute sinusitis IMPRESSION: Old right hemispheric infarcts. No acute intracranial findings. Electronically signed by: Dennis Rowan M.D. 08/17/2016 8:03 PM Dictated Date/Time: 08/17/2016 6:21 PM
[2016-08-17 21:15] VITALS: BP 149/64; PULSE 72
[2016-08-17] MEDS: ATORVASTATIN 10 MG TAB PO SCH (21:17)
[2016-08-17] MEDS: PANTOprazole SOD 40 MG TAB PO SCH (21:18)
[2016-08-17] MEDS: SERTRALINE HCL 50 MG TAB PO SCH (21:18)
[2016-08-17 23:07] VITALS: BP 133/53; PULSE 74; TEMP 37.4; O2SAT 96
[2016-08-18] MEDS: PIPERACILL/TAZOBAC IV 3.375 GM in DEXTROSE 5% 100ML 100 ML IV SCH ×2 (03:54→11:44)
[2016-08-18] MEDS: LEVOTHYROXINE 25 MCG TAB PO SCH (06:08)
[2016-08-18 07:10] VITALS: BP 143/56; PULSE 75; TEMP 36.9; O2SAT 96
[2016-08-18] MEDS: METOPROLOL TARTRATE 25 MG TAB PO SCH ×2 (08:00→20:46)
[2016-08-18] MEDS: CALCIUM 600MG + VIT D 400 IU TAB PO SCH ×3 (08:00→20:45)
[2016-08-18] MEDS: LISINOPRIL 40 MG TAB PO SCH (08:01)
[2016-08-18] MEDS: CLOPIDOGREL BISULFATE 75 MG TAB PO SCH (08:01)
[2016-08-18] MEDS: AMLODIPINE BESYLATE 5 MG TAB PO SCH (08:01)
[2016-08-18 15:17] VITALS: BP 152/61; PULSE 60; TEMP 36.4; O2SAT 97
--- NOTE | 2016-08-18 17:44 | Progress Note ---
Internal Med Progress Note Date of Service: Aug 18, 2016. Provider Documentation: SUBJECTIVE: awake and alert today conversing appropriately no complain of cough no fever or chills OBJECTIVE: Vital Signs-as noted below Exam: General-elderly female ,no sign of distress Eyes-sclera non icteric ENT-NAD Neck-neck supple, no JVD Lungs-CTA Heart-regular S1/S2 Abdomen-soft, non tender Extremities-no lower ext edema Neuro-forgetfulness, ( baseline dementia ? ) no focal deficit noted Lab data as noted below. ASSESSMENT & PLAN: ASPIRATION PNEUMONIA/SEPSIS - patient presented with shortness of breath and fever and multiple episodes of vomiting and diarrhea throughout the night; Cxray shows LLL consolidation - suspect aspiration from vomiting - met criteria for sepsis - WBC 19K, lactic acid 2.4; clinically improved leukocytosis has improved , lactic acid level normalized with IVF - Abx changed to Levaquin - no evidence of wheezing d/c Prednisone - blood and sputum cultures ordered -will follow report speech eval requested appreciate input no evidence of aspiration noted CONFUSION : due to metabolic encephalopathy due to above CT head shows old infract mental status improved to baseline , awake and alert , conversing appropriately NAUSEA, VOMITING, DIARRHEA - symptoms resolved - possible viral gastroenteritis - tolerating diet well - CT abd/pelvis negative for acute abdominal findings RIGHT KIDNEY LESION - noted on CT abdomen /pelvis - renal US : The complex 2.1 cm right renal lesion remains indeterminant. Nonemergent follow-up with a renal protocol MRI or CT scan will be required for further assessment. urology eval requested HTN - BP controlled, continue lisinopril - HX CVA - continue ASA, Plavix, and statin HYPOTHYROIDISM - continue levothyroxine DVT PROPHYLAXIS - SQ Lovenox CODE STATUS - Full code DISPOSITION PT/OT eval appreciated possible discharge home with family support when medically stable Medicine follow up with Dr Infante Vital Signs: Date Time Temp Pulse Resp B/P (MAP) Pulse Ox O2 Delivery O2 Flow Rate FiO2 08/18/16 15:17 36.4 60 18 152/61 (91) 97 Room Air 08/18/16 10:49 Room Air 08/18/16 07:10 36.9 75 18 143/56 (85) 96 Room Air 08/18/16 00:00 Room Air 08/17/16 23:07 37.4 74 18 133/53 (79) 96 Room Air 08/17/16 21:15 72 149/64 (92) Lab Results: Microbiology Results 08/18/16 C.difficile Toxin B Gene (PCR) - Final, Complete No C. difficile toxin B gene detected 08/18/16 Shiga Toxin Test, Received Pending 08/18/16 Stool Culture, Received Pending
[2016-08-18] MEDS: ENOXAPARIN 40 MG/0.4 ML SYR SQ SCH (18:15)
[2016-08-18] MEDS ORDERED: LEVOFLOXACIN 500 MG TAB PO ONE (18:30)
[2016-08-18 20:41] VITALS: BP 163/66; PULSE 67
[2016-08-18] MEDS: SERTRALINE HCL 50 MG TAB PO SCH (20:45)
[2016-08-18] MEDS: PANTOprazole SOD 40 MG TAB PO SCH (20:45)
[2016-08-18] MEDS: ATORVASTATIN 10 MG TAB PO SCH (20:46)
[2016-08-19 00:25] VITALS: BP 155/66; PULSE 55; TEMP 37.1; O2SAT 96
[2016-08-19] MEDS: LEVOTHYROXINE 25 MCG TAB PO SCH (06:24)
[2016-08-19 07:04] VITALS: BP 165/68; PULSE 58; TEMP 37.1; O2SAT 95
[2016-08-19 07:55] VITALS: PULSE 68
[2016-08-19] MEDS: CALCIUM 600MG + VIT D 400 IU TAB PO SCH ×2 (07:55→13:49)
[2016-08-19] MEDS: AMLODIPINE BESYLATE 5 MG TAB PO SCH (07:56)
[2016-08-19] MEDS: LISINOPRIL 40 MG TAB PO SCH (07:56)
[2016-08-19] MEDS: CLOPIDOGREL BISULFATE 75 MG TAB PO SCH (07:56)
[2016-08-19] MEDS: METOPROLOL TARTRATE 25 MG TAB PO SCH (07:56)
[2016-08-19] MEDS ORDERED: D5W IV SCH (11:00)
[2016-08-19] MEDS ORDERED: LEVAQUIN IV SCH (11:00)
[2016-08-19] MEDS ORDERED: LEVOFLOXACIN 250 MG TAB PO SCH (11:00)
[2016-08-19 11:51] VITALS: BP 165/68; PULSE 68; TEMP 37.1; O2SAT 95
--- NOTE | 2016-08-19 15:36 | Discharge Instructions ---
Discharge Instructions Date of Service Aug 19, 2016. Admission Reason for Admission: Pneumonia Discharge Discharge Diagnosis / Problem: PNEUMOINIA Discharge Goals Goal(s): Decrease discomfort, Diagnostic testing, Therapeutic intervention Activity Recommendations Activity Limitations: resume your previous activity . Instructions / Follow-Up Instructions / Follow-Up HOSPITAL FOLLOW UP : 08/23/2016 1:[address] Kyle López MD [facility] RENAL USG : Incidental finding of The complex 2.1 cm right renal lesion remains indeterminant. Nonemergent follow-up with a renal protocol MRI or CT scan will be required for further assessment. NEED UROLOGY FOLLOW UP OUT PATIENT PLEASE HAVE REFERRAL FOR UROLOGY DR SANCHEZ Current Hospital Diet Patient's current hospital diet: AHA Diet (Heart Healthy) Discharge Diet Recommended Diet: AHA Diet (Heart Healthy) Pending Studies Studies pending at discharge: no Medical Emergencies . Who to Call and When: Medical Emergencies: If at any time you feel your situation is an emergency, please call 911 immediately. . Non-Emergent Contact Non-Emergency issues call your: Primary Care Provider . . "Provider Documentation" section prepared by Court Clemons. . VTE Core Measure Inpt VTE Proph given/why not?: Enoxaparin (Lovenox)SQ
[2016-08-19] MEDS ORDERED: LVQ250 PO (15:39)
--- NOTE | 2016-08-19 15:44 | Progress Note ---
Internal Med Progress Note Date of Service: Aug 19, 2016. Provider Documentation: SUBJECTIVE: pt ambulating in hallway with rolling walker , minimum assistance no SOB no cough no confusion noted stable to be discharged home OBJECTIVE: Vital Signs-as noted below Exam: General-elderly female ,no sign of distress Eyes-sclera non icteric ENT-NAD Neck-neck supple, no JVD Lungs-CTA Heart-regular S1/S2 Abdomen-soft, non tender Extremities-no lower ext edema Neuro-forgetfulness, ( baseline dementia ? ) no focal deficit noted Lab data as noted below. ASSESSMENT & PLAN: ASPIRATION PNEUMONIA/SEPSIS resolved clinically improved to baseline no cough or SOB , no fever normal mentation - patient presented with shortness of breath and fever and multiple episodes of vomiting and diarrhea throughout the night; Cxray shows LLL consolidation - suspect aspiration from vomiting - met criteria for sepsis - WBC 19K, lactic acid 2.4; clinically improved leukocytosis has improved , lactic acid level normalized with IVF - Abx changed to Levaquin total 7 days course - no evidence of wheezing d/c Prednisone - blood and sputum cultures negative growth speech eval requested appreciate input no evidence of aspiration noted functional status back to baseline stable to be discharged home today CONFUSION : resolved appropriate conversation , able to participate in ADL's due to metabolic encephalopathy due to above CT head shows old infract mental status improved to baseline , awake and alert , conversing appropriately NAUSEA, VOMITING, DIARRHEA - symptoms resolved-no further episode - possible viral gastroenteritis - tolerating diet well - CT abd/pelvis negative for acute abdominal findings RIGHT KIDNEY LESION - noted on CT abdomen /pelvis - renal US : The complex 2.1 cm right renal lesion remains indeterminant. Nonemergent follow-up with a renal protocol MRI or CT scan will be required for further assessment. will need out pt Urology eval HTN - BP controlled, continue lisinopril - HX CVA - continue ASA, Plavix, and statin HYPOTHYROIDISM - continue levothyroxine DVT PROPHYLAXIS - SQ Lovenox CODE STATUS - Full code DISPOSITION PT/OT eval appreciated discharge home with family support today Medicine follow up with Dr Infante Vital Signs: Date Time Temp Pulse Resp B/P (MAP) Pulse Ox O2 Delivery O2 Flow Rate FiO2 08/19/16 11:51 37.1 68 18 95 Room Air 08/19/16 08:42 Room Air 08/19/16 07:55 68 08/19/16 07:04 37.1 58 18 165/68 (100) 95 Room Air 08/19/16 00:30 Room Air 08/19/16 00:25 37.1 55 18 155/66 (95) 96 Room Air 08/18/16 20:41 67 163/66 (98) 08/18/16 16:00 Room Air
--- NOTE | 2016-08-19 15:47 | Discharge Summary ---
Discharge Summary Date of Service Aug 19, 2016. Discharge Summary Admission Date: Aug 16, 2016 at 15:01 Discharge Date: Aug 19, 2016 Principal Diagnosis: PNEUMONIA/RENAL LESION Procedures: CT ABDOMEN/PELVIS : IMPRESSION: 1. There is dense airspace consolidation at the left lung base with small left pleural effusion. The appearance is typical for pneumonia/aspiration pneumonitis. Clinical correlation will be required and radiographic follow-up to resolution is recommended. 2. There are no acute infectious or inflammatory findings in the abdomen or pelvis. 3. There is a 2.6 cm lesion arising from the upper pole of the right kidney. This does not meet CT criteria for a simple cyst. Differential considerations include a complex/proteinaceous cyst or renal neoplasm. Follow-up with a nonemergent renal ultrasound is recommended for further assessment. 4. Mild colonic diverticulosis without CT evidence of acute diverticulitis. 5. Additional findings as above. RENAL ULTRASOUND : IMPRESSION: 1. The kidneys are atrophic and without hydronephrosis. 2. The bladder is normal in appearance. 3. The complex 2.1 cm right renal lesion remains indeterminant. Nonemergent follow-up with a renal protocol MRI or CT scan will be required for further assessment. Medication Reconciliation New Medications: Levofloxacin (Levofloxacin) 250 Mg Tab 250 MG PO DAILY for 4 Days, #4 TAB Continued Medications: Amlodipine (Norvasc) 5 Mg Tab 5 MG PO QAM Atorvastatin (Lipitor) 10 Mg Tab 10 MG PO QPM Calcium W/ Vitamins D & K (Viactiv) 1 Chw Chw 1 TAB PO TID Clopidogrel (Plavix) 75 Mg Tab 75 MG PO QAM Docusate Sodium (Colace) 100 Mg Cap 1 CAP PO BID PRN for CON Furosemide (Lasix) 40 Mg Tab 40 MG PO QAM Levothyroxine Sodium (Levothyroxine Sodium) 25 Mcg Tab 25 MCG PO QAM Lisinopril (Zestril) 40 Mg Tab 40 MG PO QAM Metoprolol Tartrate (Lopressor) (Lopressor) 25 Mg Tab 12.5 MG PO BID Omeprazole (Prilosec) 20 Mg Cap 20 MG PO HS Polyethylene Glycol 3350 (Miralax) 1 Pow Pow 17 GM PO DAILY PRN for Constipation Sertraline (Zoloft) 25 Mg Tab 25 MG PO HS, TAB Referrals At Discharge Follow up Referrals: Urologist Referral - Please Call For Appointment with Edie Sanchez MD Admission Information HPI (per Admitting provider): 80 year old female who presents to the ER with shortness of breath and fever. Patient reports she had a poor appetite last night and went to bed early. She reports she was up for most of the night with vomiting and diarrhea. Granddaughter in law is at the bedside and reports that this morning she was walking down the [place] and she appears disheveled and short of breath. She took her temperature and it was 101. Patient denies cough and sputum production. She reports her GI symptoms have resolved. Had a bowel movement in the ED that was formed. She denies hematemesis, coffee ground emesis, BRBPR, or dark tarry stools. She denies chest pain. No lightheadedness or dizziness. She denies urinary symptoms. In the ER, patient's WBC is 19K, lactic acid is 2.4. CT abd/ pelvis is negative for acute GI problem however is showing left lung base consolidation. Patient was given IVF and IV Zosyn. Physical Exam (per Admitting): General Appearance: no apparent distress Head: normocephalic Eyes: normal inspection ENT: hearing grossly normal Neck: supple, no JVD Respiratory/Chest: no respiratory distress, + crackles (left base) Cardiovascular: regular rate, rhythm, no edema, normal peripheral pulses Abdomen/GI: normal bowel sounds, non tender, soft Extremities/Musculoskelatal: normal inspection, no calf tenderness Neurologic/Psych: no motor/sensory deficits, alert, normal mood/affect, oriented x 3 Skin: normal color, warm/dry Hospital Course ASPIRATION PNEUMONIA/SEPSIS resolved clinically improved to baseline no cough or SOB , no fever normal mentation - patient presented with shortness of breath and fever and multiple episodes of vomiting and diarrhea throughout the night; Cxray shows LLL consolidation - suspect aspiration from vomiting - met criteria for sepsis - WBC 19K, lactic acid 2.4; clinically improved leukocytosis has improved , lactic acid level normalized with IVF - Abx changed to Levaquin total 7 days course - no evidence of wheezing d/c Prednisone - blood and sputum cultures negative growth speech eval requested appreciate input no evidence of aspiration noted functional status back to baseline stable to be discharged home today CONFUSION : resolved appropriate conversation , able to participate in ADL's due to metabolic encephalopathy due to above CT head shows old infract mental status improved to baseline , awake and alert , conversing appropriately NAUSEA, VOMITING, DIARRHEA - symptoms resolved-no further episode - possible viral gastroenteritis - tolerating diet well - CT abd/pelvis negative for acute abdominal findings RIGHT KIDNEY LESION - noted on CT abdomen /pelvis - renal US : The complex 2.1 cm right renal lesion remains indeterminant. Nonemergent follow-up with a renal protocol MRI or CT scan will be required for further assessment. will need out pt Urology eval HTN - BP controlled, continue lisinopril - HX CVA - continue ASA, Plavix, and statin HYPOTHYROIDISM - continue levothyroxine DVT PROPHYLAXIS - SQ Lovenox CODE STATUS - Full code DISPOSITION PT/OT eval appreciated discharge home with family support today Medicine follow up with Dr Infante Total time spent on discharge = 40 MINS This includes examination of the patient, discharge planning, medication reconciliation, and communication with other providers. Discharge Instructions Discharge Instructions Date of Service Aug 19, 2016. Admission Reason for Admission: Pneumonia Discharge Discharge Diagnosis / Problem: PNEUMONIA Discharge Goals Goal(s): Decrease discomfort, Diagnostic testing, Therapeutic intervention Activity Recommendations Activity Limitations: resume your previous activity . Instructions / Follow-Up Instructions / Follow-Up HOSPITAL FOLLOW UP : 08/23/2016 1:[address] Kyle López MD [facility] RENAL USG : Incidental finding of The complex 2.1 cm right renal lesion remains indeterminant. Nonemergent follow-up with a renal protocol MRI or CT scan will be required for further assessment. NEED UROLOGY FOLLOW UP OUT PATIENT PLEASE HAVE REFERRAL FOR UROLOGY DR SANCHEZ Current Hospital Diet Patient's current hospital diet: AHA Diet (Heart Healthy) Discharge Diet Recommended Diet: AHA Diet (Heart Healthy) Pending Studies Studies pending at discharge: no Medical Emergencies . Who to Call and When: Medical Emergencies: If at any time you feel your situation is an emergency, please call 911 immediately. . Non-Emergent Contact Non-Emergency issues call your: Primary Care Provider . . "Provider Documentation" section prepared by Court Clemons. . VTE Core Measure Inpt VTE Proph given/why not?: Enoxaparin (Lovenox)SQ Additional Copies To Edie Sanchez .MD Naresh Susan D.O.
[2016-08-19 15:52] VITALS: O2SAT 95
--- NOTE | 2016-09-20 13:33 | Urology Consultation ---
History General Date of Service: Sep 20, 2016. Primary Care Physician: Cathleen Infante D.O. History of Present Illness pateitn discharged prior to being seen will see as outpatient to discuss renal mass Laboratory Labs were reviewed and are within normal limits unless listed below. Labs are available in the chart and at [facility] Problem List Medical Problems: (1) Cellulitis of left upper extremity Status: Acute (2) Contusion of left hip Status: Acute (3) Elevated blood pressure Status: Acute (4) Hypocalcemia Status: Acute (5) Left-sided weakness Status: Acute (6) Leg pain, left Status: Acute (7) Pneumonia involving right lung Status: Acute Past History CVA/TIA/stroke, high cholesterol, hypertension, hypothyroidism, osteoarthritis, osteoporosis Past Surgical History: no surgical history Family History Cancer Diabetes mellitus FH: kidney disease Hypertension Social History Hx Tobacco Use In Past Year?: No Alcohol: never Housing status: lives with family Immunizations History of Influenza Vaccine: Yes Influenza Vaccine Date: Nov 14, 2015 History of Tetanus Vaccine?: Yes Tetanus Immunization Date: Dec 21, 2013 History of Pneumococcal: Yes Pneumococcal Date: Nov 14, 2015 History of MDRO No Allergies Coded Allergies: Aspirin (Verified Allergy, Severe, ANAPHYLAXIS, SWELLING, 08/16/16) Medications Home Medications: Home Meds and Scripts Medications Dose Route/Sig Max Daily Dose Days Date Category Levofloxacin 250 Mg Tab 250 Mg PO DAILY 4 08/19/16 Rx Lopressor (Metoprolol Tartrate) 25 Mg Tab 12.5 Mg PO BID 05/04/16 Reported Viactiv (Calcium W/ Vitamins D & K) 1 Chw Chw 1 Tab PO TID 03/19/16 Reported Colace (Docusate Sodium) 100 Mg Cap 1 Cap PO BID PRN 02/04/16 Reported Lipitor (Atorvastatin Calcium) 10 Mg Tab 10 Mg PO QPM 08/04/15 Reported Prilosec (Omeprazole) 20 Mg Cap 20 Mg PO HS 06/11/15 Reported Zoloft (Sertraline HCl) 25 Mg Tab 25 Mg PO HS 02/11/15 Reported Norvasc (Amlodipine Besylate) 5 Mg Tab 5 Mg PO QAM 12/05/13 Reported Miralax (Polyethylene Glycol 3350) 1 Pow Pow 17 Gm PO DAILY PRN 09/15/13 Reported Plavix (Clopidogrel Bisulfate) 75 Mg Tab 75 Mg PO QAM 04/14/13 Reported Lasix (Furosemide) 40 Mg Tab 40 Mg PO QAM 04/14/13 Reported Levothyroxine Sodium 25 Mcg Tab 25 Mcg PO QAM 04/14/13 Reported Zestril (Lisinopril) 40 Mg Tab 40 Mg PO QAM 04/14/13 Reported
[2016-10-04] MEDS ORDERED: NRV5 PO (17:18)
[2016-10-04] MEDS ORDERED: HPRIS5M SQ (17:24)
== END 2016-08-19 16:38 | disposition home or self-care (01) | DRG 871 ==
LOC: C.EDB 09:56 → C.MS2W 15:01 → ENRESERV 15:16
PROVIDERS: ADMIT Internal Medicine; ATTEND Hospitalist
DX: A41.9 Sepsis, unspecified organism (principal); J69.0 Pneumonitis due to inhalation of food and vomit; G93.41 Metabolic encephalopathy; A08.4 Viral intestinal infection, unspecified; N28.9 Disorder of kidney and ureter, unspecified; I10 Essential (primary) hypertension; E03.9 Hypothyroidism, unspecified; Z86.73 Personal history of transient ischemic attack (TIA), and cerebral infarction without residual deficits; Z79.02 Long term (current) use of antithrombotics/antiplatelets; Z79.899 Other long term (current) drug therapy

== ENCOUNTER 2016-09-30 19:20 | Emergency (ER) | payer OTHER ==
[~2016-09-30] VITALS: Ht 162.6 cm; Wt 70.0 kg
[~2016-09-30 19:20] MED LIST changes: +LVQ250 PO; -PRED1SUS3 OPR
[2016-09-30 19:28] VITALS: TEMP 36.9; Ht 162.6 cm; Wt 70.0 kg
--- NOTE | 2016-09-30 20:20 | DIAGNOSTIC IMAGING REPORT ---
LEFT KNEE 1 OR 2 VIEWS ROUTINE CLINICAL HISTORY: 80 years-old Female presenting with left posterior knee pain. TECHNIQUE: Frontal and lateral views of the left knee were obtained. COMPARISON: 02/11/2015. FINDINGS: Slight interval progression of severe degenerative change of the left knee. Tricompartmental degenerative changes noted most severe in the medial compartment, where there is severe joint space loss, subchondral sclerosis, and osteophytosis. Knee joint effusion present. Osteopenia limits evaluation for nondisplaced fracture. Within this limitation, no displaced fracture or acute subluxation. IMPRESSION: 1. Severe tricompartmental degenerative changes slightly progressed since the prior exam on 02/11/2015. 2. Knee joint effusion. Electronically signed by: Paul Rojo M.D. 09/30/2016 8:19 PM Dictated Date/Time: 09/30/2016 8:17 PM
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
--- NOTE | 2016-09-30 21:11 | EMERGENCY ROOM VISIT NOTE ---
ED Visit Note First contact with patient: 19:30 Patient seen and evaluated at bedside. I discussed the plan and results with the pa. Discussed results with patient and family as well as need for orthopedic follow-up and nonweightbearing status. Patient does live with family and they will be able to help her. Doubt knee dislocation or vascular injury. No other trauma. Mechanism based on family discussion was a twisting, no direct blow or fall on it.
[2016-09-30] MEDS ORDERED: OXYCODONE IR HOME PACK PO STA (21:38)
[2016-09-30] MEDS ORDERED: OXYC1TAB3 PO (21:39)
[2016-09-30 22:03] VITALS: BP 154/55; PULSE 83; O2SAT 91
[2016-10-04] MEDS ORDERED: NRV5 PO (17:18)
[2016-10-04] MEDS ORDERED: HPRIS5M SQ (17:24)
== END 2016-09-30 22:04 | disposition home or self-care (01) ==
LOC: EDBD 19:20 → C.EDD 19:22
DX: S89.92XA Unspecified injury of left lower leg, initial encounter (principal); V00.838A Other accident with motorized mobility scooter, initial encounter; Y92.838 Other recreation area as the place of occurrence of the external cause; F41.9 Anxiety disorder, unspecified; F32.9 Major depressive disorder, single episode, unspecified; N18.3 Chronic kidney disease, stage 3 (moderate); E78.5 Hyperlipidemia, unspecified; Z86.73 Personal history of transient ischemic attack (TIA), and cerebral infarction without residual deficits; I12.9 Hypertensive chronic kidney disease with stage 1 through stage 4 chronic kidney disease, or unspecified chronic kidney disease; E03.9 Hypothyroidism, unspecified; M19.90 Unspecified osteoarthritis, unspecified site; M81.0 Age-related osteoporosis without current pathological fracture; Z80.9 Family history of malignant neoplasm, unspecified; Z83.3 Family history of diabetes mellitus; Z84.1 Family history of disorders of kidney and ureter; Z82.49 Family history of ischemic heart disease and other diseases of the circulatory system; Z79.02 Long term (current) use of antithrombotics/antiplatelets; Z79.899 Other long term (current) drug therapy

== ENCOUNTER 2016-10-01 04:35 | Inpatient (IN) | payer OTHER ==
[~2016-10-01] VITALS: Ht 162.6 cm; Wt 71.0 kg
[~2016-10-01 04:35] MED LIST changes: -LVQ250 PO; +OXYC1TAB3 PO
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
[2016-10-01] MEDS ORDERED: OXYCODONE HCL IR 5 MG TAB (IMMEDIATE RELEASE) PO STA (05:19)
[2016-10-01 07:20] LABS: HEMATOCRIT 31.9 % (37-47); MEAN CELL VOLUME 84.4 fL (80-100); MEAN CORPUSCULAR HEMOGLOBIN 27.5 pg (25-34); MEAN CORPUSCULAR HGB CONC 32.6 g/dl (32-36); MEAN PLATELET VOLUME 10.1 fL (7.4-10.4); PLATELET COUNT 241 K/uL (130-400); RED BLOOD COUNT 3.78 M/uL (4.2-5.4); WHITE BLOOD COUNT 17.61 K/uL (4.8-10.8)
[2016-10-01 07:33] LABS: PARTIAL THROMBOPLASTIN RATIO 0.8
[2016-10-01 07:36] VITALS: O2SAT 96; Ht 162.6 cm; Wt 71.0 kg
[2016-10-01 07:40] LABS: BUN/CREATININE RATIO 17.9 (10-20); CREATININE 1.1 mg/dl (0.60-1.20)
[2016-10-01 07:43] LABS: ALB/GLOB RATIO 0.9 (0.9-2)
[2016-10-01] MEDS ORDERED: D5W AND NSS 1,000 ML IV SCH (08:00)
[2016-10-01] MEDS ORDERED: TRAMADOL HCL 50 MG TAB PO PRN (08:00)
[2016-10-01 08:04] LABS: INR 1.1 (0.9-1.1); PROTHROMBIN TIME (PATIENT) 12.3 SECONDS (9.0-12.0)
[2016-10-01] MEDS ORDERED: POLYETHYLENE (MIRALAX) 17 GM PACK PO PRN (08:15)
[2016-10-01] MEDS ORDERED: ACETAMINOPHEN 325 MG TAB PO PRN (08:15)
[2016-10-01] MEDS ORDERED: ONDANSETRON INJ 2 MG/ML 2 ML VIAL IV PRN (08:15)
--- NOTE | 2016-10-01 08:26 | DIAGNOSTIC IMAGING REPORT ---
CT OF THE LEFT KNEE WITHOUT CONTRAST CLINICAL HISTORY: Left leg pain. Evaluate for fracture. COMPARISON STUDY: Left knee radiographs September 30, 2016. TECHNIQUE: Axial images of the left knee were obtained without IV contrast. Sagittal and coronal reconstructions were viewed. FINDINGS: Note is made of an acute impacted comminuted mildly displaced fracture through the distal shaft, metaphysis and intercondylar portion of the distal left femur. Fracture extends between the medial and lateral femoral condyles with a "Y" configuration. Intra-articular extension is noted to the medial trochlea. The fracture is displaced up to 1 cm. No acute fracture of the proximal left tibia or fibula is noted. There is no acute fracture of the patella. A well-corticated ossicle along the superolateral aspect the patella favors a bipartite patella. There is an associated moderate-sized left knee joint effusion with lipohemarthrosis. Marked medial compartment joint space narrowing with osteophytosis is noted. There is moderate osteophytosis within the lateral compartment and moderate to severe joint space narrowing and osteophytosis within the patellofemoral compartment. Subcutaneous edema of the left knee is noted. IMPRESSION: 1. Acute comminuted mildly displaced impacted distal left femoral intercondylar fracture which involves the distal shaft and medial and lateral condyles with extension to the medial trochlea. 2. Associated moderate-sized left knee joint effusion with lipohemarthrosis. 3. Severe tricompartmental osteoarthritis of the left knee, most pronounced within the medial patellofemoral compartments. Electronically signed by: Erik Vera M.D. 10/01/2016 8:25 AM Dictated Date/Time: 10/01/2016 8:15 AM
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
[2016-10-01] MEDS ORDERED: CLOPIDOGREL BISULFATE 75 MG TAB PO SCH (09:00)
--- NOTE | 2016-10-01 09:13 | DIAGNOSTIC IMAGING REPORT ---
SINGLE VIEW CHEST CLINICAL HISTORY: Fall. FINDINGS: An AP, portable, upright chest radiograph is compared to study dated 08/16/2016. The examination is degraded by portable technique and patient rotation. The cardiomediastinal silhouette is unremarkable. There is atherosclerotic calcification of the thoracic aorta. Chronic interstitial thickening is unchanged. The lungs and pleural spaces are clear. No pneumothorax is seen. The skeletal structures are osteopenic. The bony thorax is grossly intact. IMPRESSION: No acute cardiopulmonary abnormality. Electronically signed by: Steve Laird M.D. 10/01/2016 9:11 AM Dictated Date/Time: 10/01/2016 9:10 AM
[2016-10-01 09:56] VITALS: BP 172/65; PULSE 72; TEMP 36.8; O2SAT 96
[2016-10-01] MEDS: AMLODIPINE BESYLATE 5 MG TAB PO SCH (10:32)
[2016-10-01] MEDS: METOPROLOL TARTRATE 25 MG TAB PO SCH (10:32)
[2016-10-01] MEDS: DOCUSATE SODIUM 100 MG CAP PO SCH (10:32)
[2016-10-01] MEDS: LEVOTHYROXINE 25 MCG TAB PO SCH (10:33)
[2016-10-01] MEDS: LISINOPRIL 40 MG TAB PO SCH (10:33)
--- NOTE | 2016-10-01 13:58 | DIAGNOSTIC IMAGING REPORT ---
LEFT LOWER EXTREMITY VENOUS DOPPLER HISTORY: Left leg swelling. COMPARISON STUDY: None. FINDINGS: Suboptimal evaluation due to patient immobility and soft tissue swelling. However, there appears to be normal compressibility, flow, and augmentation within the visualized left lower extremity deep venous system. IMPRESSION: No DVT within the left lower extremity. Electronically signed by: Luis Nelson M.D. 10/01/2016 1:57 PM Dictated Date/Time: 10/01/2016 1:56 PM
[2016-10-01] MEDS: HYDROCODONE/ACETAMOPHEN 5/325MG TAB PO PRN (14:19)
[2016-10-01 15:10] VITALS: BP 159/67; PULSE 64; TEMP 37; O2SAT 94
[2016-10-01 22:28] VITALS: BP 159/64; PULSE 81
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
[2016-10-01 23:20] VITALS: BP 153/66; PULSE 68; TEMP 37; O2SAT 94
[2016-10-02] MEDS: DOCUSATE SODIUM 100 MG CAP PO SCH ×3 (05:46→21:01)
[2016-10-02] MEDS: ATORVASTATIN 10 MG TAB PO SCH ×2 (05:47→20:57)
[2016-10-02] MEDS: METOPROLOL TARTRATE 25 MG TAB PO SCH ×3 (05:47→21:01)
[2016-10-02] MEDS: SERTRALINE HCL 50 MG TAB PO SCH ×2 (05:48→20:57)
[2016-10-02] MEDS: PANTOprazole SOD 40 MG TAB PO SCH ×2 (05:48→21:01)
[2016-10-02] MEDS: LEVOTHYROXINE 25 MCG TAB PO SCH (05:50)
[2016-10-02 05:53] LABS: URINE APPEARANCE CLEAR (CLEAR); URINE BILIRUBIN NEG (NEG); URINE COLOR YELLOW; URINE NITRITE NEG (NEG); URINE SPECIFIC GRAVITY 1.015 (1.000-1.030); UROBILINOGEN NEG (NEG)
[2016-10-02 05:54] LABS: MANUAL MICROSCOPIC REQUIRED? NO; REVIEW REQ? NO
[2016-10-02 07:08] VITALS: BP 168/70; PULSE 70; TEMP 37; O2SAT 93
[2016-10-02] MEDS: AMLODIPINE BESYLATE 5 MG TAB PO SCH (08:36)
[2016-10-02 08:49] LABS: BASO % 0.3 %; BASO ABS # 0.04 K/uL (0-0.2); EOS % 0.5 %; HEMATOCRIT 28.5 % (37-47); IG% 0.6 %; LYMPH % 8.1 %; LYMPH ABS # 1.18 K/uL (1.2-3.4); MEAN CELL VOLUME 85.1 fL (80-100); MEAN CORPUSCULAR HEMOGLOBIN 26.6 pg (25-34); MEAN CORPUSCULAR HGB CONC 31.2 g/dl (32-36); MEAN PLATELET VOLUME 10.1 fL (7.4-10.4); MONO % 10.2 %; NEUT % 80.3 %; PLATELET COUNT 208 K/uL (130-400); RED BLOOD COUNT 3.35 M/uL (4.2-5.4); WHITE BLOOD COUNT 14.64 K/uL (4.8-10.8)
[2016-10-02] MEDS: LISINOPRIL 40 MG TAB PO SCH (09:10)
[2016-10-02 09:24] LABS: BUN/CREATININE RATIO 20.6 (10-20); CALCIUM 7.6 mg/dl (8.5-10.1); CREATININE 0.67 mg/dl (0.60-1.20); POTASSIUM 3.5 mmol/L (3.5-5.1)
[2016-10-02 09:26] LABS: COMPLETE YES; HYPOCHROMIA PRESENT
--- NOTE | 2016-10-02 10:32 | Orthopedic Progress Note ---
Orthopedic Progress Note Date of Service Oct 02, 2016. Objective calves soft nontender, N/V intact, capillary refill less than 2 sec., toes mobile Date Time Temp Pulse Resp B/P (MAP) Pulse Ox O2 Delivery O2 Flow Rate FiO2 10/02/16 07:25 Room Air 10/02/16 07:08 37.0 70 18 168/70 (102) 93 Room Air 10/01/16 23:55 Room Air 10/01/16 23:20 37.0 68 18 153/66 (95) 94 Room Air 10/01/16 22:28 81 159/64 (95) 10/01/16 15:15 Room Air 10/01/16 15:10 37.0 64 16 159/67 (97) 94 Room Air Laboratory Results 24 Hours: Test 10/02/16 08:01 White Blood Count 14.64 K/uL Red Blood Count 3.35 M/uL Hemoglobin 8.9 g/dL Hematocrit 28.5 % Mean Corpuscular Volume 85.1 fL Mean Corpuscular Hemoglobin 26.6 pg Mean Corpuscular Hemoglobin Concent 31.2 g/dl Platelet Count 208 K/uL Mean Platelet Volume 10.1 fL Neutrophils (%) (Auto) 80.3 % Lymphocytes (%) (Auto) 8.1 % Monocytes (%) (Auto) 10.2 % Eosinophils (%) (Auto) 0.5 % Basophils (%) (Auto) 0.3 % Neutrophils # (Auto) 11.77 K/uL Lymphocytes # (Auto) 1.18 K/uL Monocytes # (Auto) 1.49 K/uL Eosinophils # (Auto) 0.07 K/uL Basophils # (Auto) 0.04 K/uL Assessment & Plan Assessment: Left supracondylar femur fracture Plan: Non-operative tx for now. Plan is to allow fracture to heal in brace for 3 months. If she still has pain once fracture is healed then proceed with knee replacement. NWB LLE knee immobilizer stable for dispo per Ortho once medically stable
[2016-10-02 12:02] VITALS: BP 152/72
[2016-10-02 14:53] VITALS: BP 155/59; PULSE 78; TEMP 37.2; O2SAT 94
[2016-10-02] MEDS ORDERED: CLOPIDOGREL BISULFATE 75 MG TAB PO ONE (15:45)
--- NOTE | 2016-10-02 17:49 | Progress Note ---
Medicine Progress Note Date & Time of Visit: Oct 02, 2016 at 17:46. Subjective seen resting in bed, comfortable oriented x 2 denies significant leg pain denies chest pain, dyspnea, dizziness, palpitations no other symptoms Objective Last 8 Hrs Date Time Temp Pulse Resp B/P (MAP) Pulse Ox O2 Delivery O2 Flow Rate FiO2 10/02/16 15:30 Room Air 10/02/16 14:53 37.2 78 18 155/59 (91) 94 Room Air 10/02/16 12:02 152/72 (98) Physical Exam: General- oriented x 3, not in distress, speaks in sentences with no effort Eyes- EOMI, anicteric Neck- supple, no JVD Lungs- clear to auscultation b/l Heart- regular rhythm; no murmur, normal rate Abdomen- normal bowel sounds, soft, nontender Extremities- left leg in immobilizer Neuro- alert, oriented x 2 no other gross focal deficits Skin- warm & dry Laboratory Results: Last 24 Hours Test 10/02/16 05:40 10/02/16 08:01 Urine Color YELLOW Urine Appearance CLEAR Urine pH 8.0 Urine Specific [place] 1.015 Urine Protein NEG Urine Glucose (UA) NEG Urine Ketones NEG Urine Occult Blood TRACE Urine Nitrite NEG Urine Bilirubin NEG Urine Urobilinogen NEG Urine Leukocyte Esterase NEG Urine WBC (Auto) 1-5 /hpf Urine RBC (Auto) 5-10 /hpf Urine Hyaline Casts (Auto) 0 /lpf Urine Epithelial Cells (Auto) 10-20 /lpf Urine Bacteria (Auto) NEG White Blood Count 14.64 K/uL Red Blood Count 3.35 M/uL Hemoglobin 8.9 g/dL Hematocrit 28.5 % Mean Corpuscular Volume 85.1 fL Mean Corpuscular Hemoglobin 26.6 pg Mean Corpuscular Hemoglobin Concent 31.2 g/dl Platelet Count 208 K/uL Mean Platelet Volume 10.1 fL Neutrophils (%) (Auto) 80.3 % Lymphocytes (%) (Auto) 8.1 % Monocytes (%) (Auto) 10.2 % Eosinophils (%) (Auto) 0.5 % Basophils (%) (Auto) 0.3 % Neutrophils # (Auto) 11.77 K/uL Lymphocytes # (Auto) 1.18 K/uL Monocytes # (Auto) 1.49 K/uL Eosinophils # (Auto) 0.07 K/uL Basophils # (Auto) 0.04 K/uL RDW Standard Deviation 46.0 fL RDW Coefficient of Variation 14.7 % Immature Granulocyte % (Auto) 0.6 % Immature Granulocyte # (Auto) 0.09 K/uL Hypochromasia PRESENT Sodium Level 140 mmol/L Potassium Level 3.5 mmol/L Chloride Level 105 mmol/L Carbon Dioxide Level 30 mmol/L Anion Gap 5.0 mmol/L Blood Urea Nitrogen 14 mg/dl Creatinine 0.67 mg/dl Est Creatinine Clear Calc Drug Dose 62.6 ml/min Estimated GFR () 94.9 Estimated GFR (Non- 81.9 BUN/Creatinine Ratio 20.6 Random Glucose 140 mg/dl Calcium Level 7.6 mg/dl Assessment & Plan 80 year old female with history of HTN, HLD, CKD 3, CVA other problems noted below presents with left leg pain. LEFT KNEE FRACTURE - s/p Fall - Ortho consulted no surgical intervention at this time recommend immobilizer, non weight bearing on the LLE for about 2-3 months, then re-evaluate for possible need for surgery PT OT ordered anticipate d/c to SNF/Rehab kelsey Garcia updated last night, he agrees with Rehab/SNF upon discharge ANEMIA - Hg 8.9 - monitor MICROSCOPIC HEMATURIA - will need repeat UA LEFT KNEE SWELLING - check Doppler US: negative HYPERTENSION - continue Amlodipine, Metoprolol, Lisinopril hold Lasix for now CKD 3 - stable HYPOTHYROIDISM - continue L thyroxine HISTORY OF CVA - resume Plavix DVT PROPHYLAXIS - heparin started CODE STATUS Full Code per patient DISPOSITION will require Rehab/SNF upon discharge Current Inpatient Medications: Current Inpatient Medications Medications (Trade) Dose Ordered Sig/Ebony Route Start Time Stop Time Status Last Admin Dose Admin Tramadol HCl (Ultram Tab) 50 mg Q6H PRN PO 10/01/16 08:00 10/31/16 07:59 Acetaminophen/ Hydrocodone Bitart ([place] 5/325 Tab) 1 tab Q6H PRN PO 10/01/16 08:00 10/15/16 07:59 10/01/16 14:19 1 TAB Acetaminophen (Tylenol Tab) 650 mg Q4H PRN PO 10/01/16 08:15 10/31/16 08:14 Ondansetron HCl (Zofran Inj) 4 mg Q6H PRN IV 10/01/16 08:15 10/31/16 08:14 Amlodipine Besylate (Norvasc Tab) 5 mg QAM PO 10/01/16 09:00 10/31/16 08:59 10/02/16 08:36 5 MG Atorvastatin Calcium (Lipitor Tab) 10 mg QPM PO 10/01/16 21:00 10/31/16 20:59 Docusate Sodium (coLACE CAP) 100 mg BID PO 10/01/16 09:00 10/31/16 08:59 10/02/16 08:35 100 MG Levothyroxine Sodium (Synthroid Tab) 25 mcg DAILYBB PO 10/01/16 09:00 10/31/16 08:59 10/02/16 05:50 25 MCG Lisinopril (Zestril Tab) 40 mg QAM PO 10/01/16 09:00 10/31/16 08:59 10/02/16 09:10 40 MG Metoprolol Tartrate (Lopressor Tab) 12.5 mg BID PO 10/01/16 09:00 10/31/16 08:59 10/02/16 08:35 12.5 MG Polyethylene (Miralax Powder Packet) 17 gm DAILY PRN PO 10/01/16 08:15 10/31/16 08:14 Sertraline HCl (Zoloft Tab) 25 mg HS PO 10/01/16 21:00 10/31/16 20:59 Pantoprazole Sodium (Protonix Tab) 40 mg HS PO 10/01/16 21:00 10/31/16 20:59 Clopidogrel Bisulfate (plAVix TAB) 75 mg QAM PO 10/03/16 09:00 11/02/16 08:59 Heparin Sodium (Porcine) (Heparin Sq 5000 Unit/0.5ml) 5,000 unit Q12 SQ 10/02/16 21:00 11/01/16 20:59
[2016-10-02] MEDS: HEPARIN SOD 5000 UNIT/0.5 ML CARP SQ SCH (21:04)
[2016-10-02 22:51] VITALS: BP 162/69; PULSE 86; TEMP 37.4; O2SAT 93
[2016-10-03 03:47] VITALS: BP 147/57; PULSE 76
[2016-10-03] MEDS: LEVOTHYROXINE 25 MCG TAB PO SCH (05:19)
[2016-10-03 07:41] VITALS: BP 159/68; PULSE 79; TEMP 37.1; O2SAT 95
[2016-10-03 08:30] LABS: BASO % 0.2 %; BASO ABS # 0.03 K/uL (0-0.2); EOS % 0.8 %; HEMATOCRIT 25.6 % (37-47); IG% 0.7 %; LYMPH % 10.6 %; LYMPH ABS # 1.45 K/uL (1.2-3.4); MEAN CELL VOLUME 82.8 fL (80-100); MEAN CORPUSCULAR HEMOGLOBIN 27.2 pg (25-34); MEAN CORPUSCULAR HGB CONC 32.8 g/dl (32-36); MEAN PLATELET VOLUME 9.8 fL (7.4-10.4); MONO % 11.8 %; NEUT % 75.9 %; PLATELET COUNT 197 K/uL (130-400); RED BLOOD COUNT 3.09 M/uL (4.2-5.4); WHITE BLOOD COUNT 13.62 K/uL (4.8-10.8)
[2016-10-03] MEDS: AMLODIPINE BESYLATE 5 MG TAB PO SCH (08:51)
[2016-10-03] MEDS: DOCUSATE SODIUM 100 MG CAP PO SCH ×2 (08:51→21:10)
[2016-10-03] MEDS: METOPROLOL TARTRATE 25 MG TAB PO SCH ×2 (08:52→21:10)
[2016-10-03] MEDS: CLOPIDOGREL BISULFATE 75 MG TAB PO SCH (08:52)
[2016-10-03] MEDS: LISINOPRIL 40 MG TAB PO SCH (08:52)
[2016-10-03 08:57] LABS: BUN/CREATININE RATIO 23.1 (10-20); CALCIUM 7.5 mg/dl (8.5-10.1); CREATININE 0.68 mg/dl (0.60-1.20); POTASSIUM 3.7 mmol/L (3.5-5.1)
[2016-10-03 09:05] LABS: COMPLETE YES
[2016-10-03] MEDS: HEPARIN SOD 5000 UNIT/0.5 ML CARP SQ SCH ×2 (09:40→21:21)
[2016-10-03 14:48] VITALS: BP 151/71; PULSE 74; TEMP 37.1; O2SAT 95
--- NOTE | 2016-10-03 15:48 | Consultant Recommendations ---
Senior Teller Recommendations Date of Service Oct 03, 2016. Senior Teller Recommendations RECOMMENDATIONS: Use of a knee immobilizer, maintain nonweightbearing left lower extremity for a period of approximately 3 months. No weightbearing for at least 6-8 weeks. Walker for ambulation. If ambulation nonweightbearing not tolerated, may be bed to wheel chair if needed. FOLLOW UP WITH [facility] IN 10-14 DAYS. IF PAIN WORSENS OVER TIME , PLEASE CALL THE OFFICE. [phone]
[2016-10-03] MEDS ORDERED: AMLODIPINE BESYLATE 5 MG TAB PO ONE (17:30)
--- NOTE | 2016-10-03 20:38 | Progress Note ---
Medicine Progress Note Date & Time of Visit: Oct 03, 2016 at 20:36. Subjective sitting up in bedside chair states leg pain happens with standing, transferring to bed/chair denies chest pain, dyspnea, dizziness no other symptoms Objective Last 8 Hrs Date Time Temp Pulse Resp B/P (MAP) Pulse Ox O2 Delivery O2 Flow Rate FiO2 10/03/16 15:45 Room Air 10/03/16 14:48 37.1 74 18 151/71 (97) 95 Room Air Physical Exam: General- oriented x 3, not in distress, speaks in sentences with no effort Eyes-anicteric Neck-no JVD Lungs- clear breath sounds b/l Heart- regular rhythm; no murmur, normal rate Abdomen- normal bowel sounds, soft, nontender Extremities- left leg in immobilizer Neuro- alert, oriented x 2 no other gross focal deficits Skin- warm & dry Laboratory Results: Last 24 Hours Test 10/03/16 08:04 White Blood Count 13.62 K/uL Red Blood Count 3.09 M/uL Hemoglobin 8.4 g/dL Hematocrit 25.6 % Mean Corpuscular Volume 82.8 fL Mean Corpuscular Hemoglobin 27.2 pg Mean Corpuscular Hemoglobin Concent 32.8 g/dl Platelet Count 197 K/uL Mean Platelet Volume 9.8 fL Neutrophils (%) (Auto) 75.9 % Lymphocytes (%) (Auto) 10.6 % Monocytes (%) (Auto) 11.8 % Eosinophils (%) (Auto) 0.8 % Basophils (%) (Auto) 0.2 % Neutrophils # (Auto) 10.33 K/uL Lymphocytes # (Auto) 1.45 K/uL Monocytes # (Auto) 1.61 K/uL Eosinophils # (Auto) 0.11 K/uL Basophils # (Auto) 0.03 K/uL RDW Standard Deviation 43.3 fL RDW Coefficient of Variation 14.3 % Immature Granulocyte % (Auto) 0.7 % Immature Granulocyte # (Auto) 0.09 K/uL Red Blood Cell Morphology Unremarkable Sodium Level 138 mmol/L Potassium Level 3.7 mmol/L Chloride Level 104 mmol/L Carbon Dioxide Level 29 mmol/L Anion Gap 5.0 mmol/L Blood Urea Nitrogen 16 mg/dl Creatinine 0.68 mg/dl Est Creatinine Clear Calc Drug Dose 61.7 ml/min Estimated GFR () 94.4 Estimated GFR (Non- 81.5 BUN/Creatinine Ratio 23.1 Random Glucose 126 mg/dl Calcium Level 7.5 mg/dl Assessment & Plan 80 year old female with history of HTN, HLD, CKD 3, CVA other problems noted below presents with left leg pain. LEFT KNEE FRACTURE - s/p Fall - Ortho consulted no surgical intervention at this time recommend immobilizer, non weight bearing on the LLE for about 2-3 months, then re-evaluate for possible need for surgery PT OT ordered anticipate d/c to SNF/Rehab kelsey Garcia updated last night, he agrees with Rehab/SNF upon discharge - stable overall ANEMIA - Hg 8.4 - monitor MICROSCOPIC HEMATURIA - will need repeat UA LEFT KNEE SWELLING - check Doppler US: negative HYPERTENSION - increase Amlodipine to improve BP - continue Metoprolol, Lisinopril hold Lasix for now CKD 3 - stable HYPOTHYROIDISM - continue L thyroxine HISTORY OF CVA - resume Plavix DVT PROPHYLAXIS - heparin CODE STATUS Full Code per patient DISPOSITION will require Rehab/SNF upon discharge Current Inpatient Medications: Current Inpatient Medications Medications (Trade) Dose Ordered Sig/Ebony Route Start Time Stop Time Status Last Admin Dose Admin Tramadol HCl (Ultram Tab) 50 mg Q6H PRN PO 10/01/16 08:00 10/31/16 07:59 Acetaminophen/ Hydrocodone Bitart ([place] 5/325 Tab) 1 tab Q6H PRN PO 10/01/16 08:00 10/15/16 07:59 10/01/16 14:19 1 TAB Acetaminophen (Tylenol Tab) 650 mg Q4H PRN PO 10/01/16 08:15 10/31/16 08:14 Ondansetron HCl (Zofran Inj) 4 mg Q6H PRN IV 10/01/16 08:15 10/31/16 08:14 Atorvastatin Calcium (Lipitor Tab) 10 mg QPM PO 10/01/16 21:00 10/31/16 20:59 10/02/16 20:57 10 MG Docusate Sodium (coLACE CAP) 100 mg BID PO 10/01/16 09:00 10/31/16 08:59 10/03/16 08:51 100 MG Levothyroxine Sodium (Synthroid Tab) 25 mcg DAILYBB PO 10/01/16 09:00 10/31/16 08:59 10/03/16 05:19 25 MCG Lisinopril (Zestril Tab) 40 mg QAM PO 10/01/16 09:00 10/31/16 08:59 10/03/16 08:52 40 MG Metoprolol Tartrate (Lopressor Tab) 12.5 mg BID PO 10/01/16 09:00 10/31/16 08:59 10/03/16 08:52 12.5 MG Polyethylene (Miralax Powder Packet) 17 gm DAILY PRN PO 10/01/16 08:15 10/31/16 08:14 Sertraline HCl (Zoloft Tab) 25 mg HS PO 10/01/16 21:00 10/31/16 20:59 10/02/16 20:57 25 MG Pantoprazole Sodium (Protonix Tab) 40 mg HS PO 10/01/16 21:00 10/31/16 20:59 10/02/16 21:01 40 MG Clopidogrel Bisulfate (plAVix TAB) 75 mg QAM PO 10/03/16 09:00 11/02/16 08:59 10/03/16 08:52 75 MG Heparin Sodium (Porcine) (Heparin Sq 5000 Unit/0.5ml) 5,000 unit Q12 SQ 10/02/16 21:00 11/01/16 20:59 10/03/16 09:40 5,000 UNIT Amlodipine Besylate (Norvasc Tab) 10 mg QAM PO 10/04/16 09:00 10/31/16 08:59
[2016-10-03] MEDS: PANTOprazole SOD 40 MG TAB PO SCH (21:10)
[2016-10-03] MEDS: ATORVASTATIN 10 MG TAB PO SCH (21:10)
[2016-10-03] MEDS: SERTRALINE HCL 50 MG TAB PO SCH (21:10)
[2016-10-03 23:25] VITALS: BP 160/62; PULSE 73; TEMP 36.9; O2SAT 95
[2016-10-04] MEDS: LEVOTHYROXINE 25 MCG TAB PO SCH (05:30)
[2016-10-04 06:01] LABS: BASO % 0.4 %; BASO ABS # 0.05 K/uL (0-0.2); EOS % 1.2 %; HEMATOCRIT 25.8 % (37-47); IG% 0.8 %; LYMPH % 11.1 %; LYMPH ABS # 1.52 K/uL (1.2-3.4); MEAN CELL VOLUME 83.2 fL (80-100); MEAN CORPUSCULAR HEMOGLOBIN 27.4 pg (25-34); MEAN CORPUSCULAR HGB CONC 32.9 g/dl (32-36); MEAN PLATELET VOLUME 9.7 fL (7.4-10.4); MONO % 11.5 %; PLATELET COUNT 238 K/uL (130-400); WHITE BLOOD COUNT 13.71 K/uL (4.8-10.8)
[2016-10-04 06:32] LABS: BUN/CREATININE RATIO 22.6 (10-20); CALCIUM 7.5 mg/dl (8.5-10.1); CREATININE 0.91 mg/dl (0.60-1.20)
[2016-10-04 06:33] LABS: COMPLETE YES; EOSINOPHIL % 0.9 %; LYMPHOCYTE % 4.4 %; NEUTROPHILS % 92.1 %; POLYCHROMASIA 1+
[2016-10-04 08:02] VITALS: BP 150/60; PULSE 70; TEMP 37.3; O2SAT 93
[2016-10-04 08:30] VITALS: O2SAT 93
[2016-10-04] MEDS ORDERED: AMLODIPINE BESYLATE 5 MG TAB PO SCH (09:00)
[2016-10-04] MEDS: DOCUSATE SODIUM 100 MG CAP PO SCH (09:55)
[2016-10-04] MEDS: METOPROLOL TARTRATE 25 MG TAB PO SCH (09:55)
[2016-10-04] MEDS: CLOPIDOGREL BISULFATE 75 MG TAB PO SCH (09:56)
[2016-10-04] MEDS: LISINOPRIL 40 MG TAB PO SCH (09:57)
[2016-10-04] MEDS: HEPARIN SOD 5000 UNIT/0.5 ML CARP SQ SCH (10:06)
[2016-10-04] MEDS: HYDROCODONE/ACETAMOPHEN 5/325MG TAB PO PRN (10:11)
--- NOTE | 2016-10-04 12:03 | Progress Note ---
Medicine Progress Note Date & Time of Visit: Oct 04, 2016 at 12:02. Subjective patient seen resting in bedside chair comfortable states pain is minimal today denies chest pain, dyspnea, dizziness, palpitations no other symptoms Objective Last 8 Hrs Date Time Temp Pulse Resp B/P (MAP) Pulse Ox O2 Delivery O2 Flow Rate FiO2 10/04/16 08:30 93 Room Air 10/04/16 08:02 37.3 70 20 150/60 (90) 93 Room Air 10/04/16 07:30 Room Air Physical Exam: General- oriented x 3, not in distress, speaks in sentences with no effort Lungs- clear breath sounds bilaterally, no rales/wheezes Heart- regular rhythm; no murmur, normal rate Abdomen- normal bowel sounds, soft, nontender Extremities- left leg in immobilizer Neuro- alert, oriented x 2 no other gross focal deficits Skin- warm & dry Laboratory Results: Last 24 Hours Test 10/04/16 05:32 White Blood Count 13.71 K/uL Red Blood Count 3.10 M/uL Hemoglobin 8.5 g/dL Hematocrit 25.8 % Mean Corpuscular Volume 83.2 fL Mean Corpuscular Hemoglobin 27.4 pg Mean Corpuscular Hemoglobin Concent 32.9 g/dl Platelet Count 238 K/uL Mean Platelet Volume 9.7 fL Neutrophils (%) (Auto) 75.0 % Lymphocytes (%) (Auto) 11.1 % Monocytes (%) (Auto) 11.5 % Eosinophils (%) (Auto) 1.2 % Basophils (%) (Auto) 0.4 % Neutrophils # (Auto) 10.29 K/uL Lymphocytes # (Auto) 1.52 K/uL Monocytes # (Auto) 1.58 K/uL Eosinophils # (Auto) 0.16 K/uL Basophils # (Auto) 0.05 K/uL RDW Standard Deviation 43.9 fL RDW Coefficient of Variation 14.4 % Immature Granulocyte % (Auto) 0.8 % Immature Granulocyte # (Auto) 0.11 K/uL Neutrophils % (Manual) 92.1 % Lymphocytes % (Manual) 4.4 % Monocytes % (Manual) 2.6 % Eosinophils % (Manual) 0.9 % Neutrophils # (Manual) 12.63 K/uL Total Absolute Neutrophils 12.63 K/uL Lymphocytes # (Manual) 0.60 K/uL Total Absolute Lymphocytes 0.60 K/uL Monocytes # (Manual) 0.36 K/uL Eosinophils # (Manual) 0.12 K/uL Polychromasia 1+ Sodium Level 138 mmol/L Potassium Level 4.0 mmol/L Chloride Level 103 mmol/L Carbon Dioxide Level 28 mmol/L Anion Gap 7.0 mmol/L Blood Urea Nitrogen 21 mg/dl Creatinine 0.91 mg/dl Est Creatinine Clear Calc Drug Dose 46.1 ml/min Estimated GFR () 68.1 Estimated GFR (Non- 58.8 BUN/Creatinine Ratio 22.6 Random Glucose 121 mg/dl Calcium Level 7.5 mg/dl Assessment & Plan 80 year old female with history of HTN, HLD, CKD 3, CVA other problems noted below presents with left leg pain. LEFT KNEE FRACTURE - s/p Fall - Ortho consulted no surgical intervention at this time recommend immobilizer, non weight bearing on the LLE for about 2-3 months, then re-evaluate for possible need for surgery PT OT ordered anticipate d/c to SNF/Rehab kelsey Garcia updated last night, he agrees with Rehab/SNF upon discharge - stable overall ANEMIA - Hg 8.4 - will check anemia panel MICROSCOPIC HEMATURIA - will need repeat UA LEFT KNEE SWELLING - Doppler US: negative HYPERTENSION - increased Amlodipine to improve BP - continue Metoprolol, Lisinopril hold Lasix for now CKD 3 - stable HYPOTHYROIDISM - continue L thyroxine HISTORY OF CVA - resume Plavix DVT PROPHYLAXIS - heparin CODE STATUS Full Code per patient DISPOSITION will require Rehab/SNF upon discharge Current Inpatient Medications: Current Inpatient Medications Medications (Trade) Dose Ordered Sig/Ebony Route Start Time Stop Time Status Last Admin Dose Admin Tramadol HCl (Ultram Tab) 50 mg Q6H PRN PO 10/01/16 08:00 10/31/16 07:59 Acetaminophen/ Hydrocodone Bitart ([place] 5/325 Tab) 1 tab Q6H PRN PO 10/01/16 08:00 10/15/16 07:59 10/04/16 10:11 1 TAB Acetaminophen (Tylenol Tab) 650 mg Q4H PRN PO 10/01/16 08:15 10/31/16 08:14 Ondansetron HCl (Zofran Inj) 4 mg Q6H PRN IV 10/01/16 08:15 10/31/16 08:14 Atorvastatin Calcium (Lipitor Tab) 10 mg QPM PO 10/01/16 21:00 10/31/16 20:59 10/03/16 21:10 10 MG Docusate Sodium (coLACE CAP) 100 mg BID PO 10/01/16 09:00 10/31/16 08:59 10/04/16 09:55 100 MG Levothyroxine Sodium (Synthroid Tab) 25 mcg DAILYBB PO 10/01/16 09:00 10/31/16 08:59 10/04/16 05:30 25 MCG Lisinopril (Zestril Tab) 40 mg QAM PO 10/01/16 09:00 10/31/16 08:59 10/04/16 09:57 40 MG Metoprolol Tartrate (Lopressor Tab) 12.5 mg BID PO 10/01/16 09:00 10/31/16 08:59 10/04/16 09:55 12.5 MG Polyethylene (Miralax Powder Packet) 17 gm DAILY PRN PO 10/01/16 08:15 10/31/16 08:14 Sertraline HCl (Zoloft Tab) 25 mg HS PO 10/01/16 21:00 10/31/16 20:59 10/03/16 21:10 25 MG Pantoprazole Sodium (Protonix Tab) 40 mg HS PO 10/01/16 21:00 10/31/16 20:59 10/03/16 21:10 40 MG Clopidogrel Bisulfate (plAVix TAB) 75 mg QAM PO 10/03/16 09:00 11/02/16 08:59 10/04/16 09:56 75 MG Heparin Sodium (Porcine) (Heparin Sq 5000 Unit/0.5ml) 5,000 unit Q12 SQ 10/02/16 21:00 11/01/16 20:59 10/04/16 10:06 5,000 UNIT Amlodipine Besylate (Norvasc Tab) 10 mg QAM PO 10/04/16 09:00 10/31/16 08:59 10/04/16 09:56 10 MG
[2016-10-04 15:35] VITALS: BP 154/66; PULSE 66; TEMP 36.8; O2SAT 95
[2016-10-04 16:30] VITALS: O2SAT 95
[2016-10-04] MEDS ORDERED: NRV5 PO (17:18)
--- NOTE | 2016-10-04 17:23 | Discharge Instructions ---
Discharge Instructions Date of Service Oct 04, 2016. Admission Reason for Admission: Left Femur Fracture Discharge Discharge Diagnosis / Problem: LEFT FEMUR FRACTURE Discharge Goals Goal(s): Diagnostic testing Activity Recommendations Activity Level: Assistance Required Therapies: Physical Therapy, Occupational Therapy Weightbearing Status: Left non-weightbearing ORTHOPEDIC RECOMMENDATIONS: Use of a knee immobilizer, maintain nonweightbearing left lower extremity for a period of approximately 3 months. No weightbearing for at least 6-8 weeks. Walker for ambulation. If ambulation nonweightbearing not tolerated, may be bed to wheel chair if needed. Additional Information Patient informed of condition: Yes Advance Directives: No DNR: No (PATIENT IS FULL CODE) Level of Care: Acute Rehab Communicable Disease: No Prognosis: Stable Instructions / Follow-Up Instructions / Follow-Up ORTHOPEDIC RECOMMENDATIONS: Use of a knee immobilizer, maintain nonweightbearing left lower extremity for a period of approximately 3 months. No weightbearing for at least 6-8 weeks. Walker for ambulation. If ambulation nonweightbearing not tolerated, may be bed to wheel chair if needed. FOLLOW UP WITH [facility] IN [facility]-14 DAYS. IF PAIN WORSENS OVER TIME , PLEASE CALL THE OFFICE. [phone] MONITOR BLOOD PRESSURE DAILY. ADJUST MEDICATIONS NEEDED. PLEASE REFER TO [facility]ING [facility]OSPITAL DISCHARGE SUMMARY FOR FURTHER DETAILS. FOLLOW UP WITH PRIMARY CARE PHYSICIAN 1 WEEK AFTER DISCHARGE FROM REHAB. Current Hospital Diet Patient's current hospital diet: Regular Diet Discharge Diet Recommended Diet: AHA Diet (Heart Healthy) Procedures Procedures Performed: CT LEFT KNEE, LEFT LOWER EXTREMITY ULTRASOUND Pending Studies Studies pending at discharge: no List of pending studies: PLEASE REFER TO ACCOMPANYING DISCHARGE SUMMARY. Physician Orders On Transfer Special Precautions: ORTHOPEDIC RECOMMENDATIONS: Use of a knee immobilizer, maintain nonweightbearing left lower extremity for a period of approximately 3 months. No weightbearing for at least 6-8 weeks. Walker for ambulation. If ambulation nonweightbearing not tolerated, may be bed to wheel chair if needed. FOLLOW UP WITH [facility] IN 10-14 DAYS. IF PAIN WORSENS OVER TIME , PLEASE CALL THE OFFICE. [phone] MONITOR BLOOD PRESSURE DAILY. ADJUST MEDICATIONS NEEDED. PLEASE REFER TO [facility]PANYING HOSPITAL DISCHARGE SUMMARY FOR FURTHER DETAILS. FOLLOW UP WITH PRIMARY CARE PHYSICIAN 1 WEEK AFTER DISCHARGE FROM REHAB. Medical Emergencies . Who to Call and When: Medical Emergencies: If at any time you feel your situation is an emergency, please call 911 immediately. . Non-Emergent Contact Non-Emergency issues call your: Primary Care Provider, Surgeon Call Non-Emergent contact if: you have a fever, your pain is not controlled, your pain is worsening, you have any medication questions . . "Provider Documentation" section prepared by Ajit Talbert. . Employee Relations Specialist Recommendations Employee Relations Specialist Recommendations: RECOMMENDATIONS: Use of a knee immobilizer, maintain nonweightbearing left lower extremity for a period of approximately 3 months. No weightbearing for at least 6-8 weeks. Walker for ambulation. If ambulation nonweightbearing not tolerated, may be bed to wheel chair if needed. FOLLOW UP WITH [facility] IN 10-14 DAYS. IF PAIN WORSENS OVER TIME , PLEASE CALL THE OFFICE. [phone] Core Measure Problem Core Measures: None
[2016-10-04] MEDS ORDERED: HPRIS5M SQ (17:24)
--- NOTE | 2016-10-04 17:34 | Discharge Summary ---
Discharge Summary Date of Service Oct 04, 2016. Discharge Summary Admission Date: Oct 01, 2016 at 08:00 Discharge Date: Oct 04, 2016 Discharge Disposition: Rehab Principal Diagnosis: LEFT DISTAL FEMUR FRACTURE Secondary Diagnoses/Problems: PLEASE REFER TO HOSPITAL COURSE BELOW. Procedures: CT OF THE LEFT KNEE WITHOUT CONTRAST CLINICAL HISTORY: Left leg pain. Evaluate for fracture. COMPARISON STUDY: Left knee radiographs September 30, 2016. TECHNIQUE: Axial images of the left knee were obtained without IV contrast. Sagittal and coronal reconstructions were viewed. FINDINGS: Note is made of an acute impacted comminuted mildly displaced fracture through the distal shaft, metaphysis and intercondylar portion of the distal left femur. Fracture extends between the medial and lateral femoral condyles with a "Y" configuration. Intra-articular extension is noted to the medial trochlea. The fracture is displaced up to 1 cm. No acute fracture of the proximal left tibia or fibula is noted. There is no acute fracture of the patella. A well-corticated ossicle along the superolateral aspect the patella favors a bipartite patella. There is an associated moderate-sized left knee joint effusion with lipohemarthrosis. Marked medial compartment joint space narrowing with osteophytosis is noted. There is moderate osteophytosis within the lateral compartment and moderate to severe joint space narrowing and osteophytosis within the patellofemoral compartment. Subcutaneous edema of the left knee is noted. IMPRESSION: 1. Acute comminuted mildly displaced impacted distal left femoral intercondylar fracture which involves the distal shaft and medial and lateral condyles with extension to the medial trochlea. 2. Associated moderate-sized left knee joint effusion with lipohemarthrosis. 3. Severe tricompartmental osteoarthritis of the left knee, most pronounced within the medial patellofemoral compartments. Consultations: ORTHOPEDIC DR.PAUL MCCORMICK Pending Studies/Follow-Up: PLEASE REFER TO HOSPITAL COURSE BELOW. Medication Reconciliation New Medications: Amlodipine Besylate (Amlodipine Besylate) 5 Mg Tab 10 MG PO QAM for 30 Days, #60 TAB 2 Refills Heparin Sod (Porcine) (Heparin Sodium) 5,000 Unit/0.5 Ml Inj 5000 UNIT SQ Q12 for 30 Days, #60 UNITS 1 Refill Continued Medications: Atorvastatin (Lipitor) 10 Mg Tab 10 MG PO QPM Calcium W/ Vitamins D & K (Viactiv) 1 Chw Chw 1 TAB PO TID Clopidogrel (Plavix) 75 Mg Tab 75 MG PO QAM Docusate Sodium (Colace) 100 Mg Cap 1 CAP PO BID PRN for CON Furosemide (Lasix) 40 Mg Tab 40 MG PO QAM Levothyroxine Sodium (Levothyroxine Sodium) 25 Mcg Tab 25 MCG PO QAM Lisinopril (Zestril) 40 Mg Tab 40 MG PO QAM Metoprolol Tartrate (Lopressor) (Lopressor) 25 Mg Tab 12.5 MG PO BID Omeprazole (Prilosec) 20 Mg Cap 20 MG PO HS Oxycodone Ir (Roxicodone Ir) 5 Mg Tab 1 TAB PO Q6 PRN for Pain, #10 TAB For Initial Treatment Polyethylene Glycol 3350 (Miralax) 1 Pow Pow 17 GM PO DAILY PRN for Constipation Sertraline (Zoloft) 25 Mg Tab 25 MG PO HS, TAB Discontinued Medications: Amlodipine (Norvasc) 5 Mg Tab 5 MG PO QAM Admission Information HPI (per Admitting provider): 80 year old female with history of HTN, HLD, CKD 3, CVA other problems noted below presents with left leg pain. Patient is a poor historian. Apparently, patient was in her scooter, her foot got caught and she twisted her left leg. She has been having left leg pain since then and difficulty ambulation, thus brought to the ER. CT left lower ext: IMPRESSION: 1. Acute comminuted mildly displaced impacted distal left femoral intercondylar fracture which involves the distal shaft and medial and lateral condyles with extension to the medial trochlea. 2. Associated moderate-sized left knee joint effusion with lipohemarthrosis. 3. Severe tricompartmental osteoarthritis of the left knee, most pronounced within the medial patellofemoral compartments. Ortho consulted by ER physician and admission was advised. On exam, patient is oriented x 2, not in distress, comfortable. Denies any pain. No headache, dizziness, dyspnea, palpitations, chest pain. No other symptoms Physical Exam (per Admitting): General Appearance: WD/WN, no apparent distress Head: normocephalic, atraumatic Eyes: normal inspection, EOMI, sclerae normal ENT: normal ENT inspection, + pertinent finding (decreased hearing) Neck: supple, no adenopathy, thyroid normal, no JVD, trachea midline Respiratory/Chest: chest non-tender, lungs clear, normal breath sounds, no respiratory distress, no accessory muscle use Cardiovascular: regular rate, rhythm, no gallop, no JVD, no murmur Abdomen/GI: normal bowel sounds, non tender, soft, no organomegaly Back: normal inspection, no CVA tenderness Extremities/Musculoskelatal: + pertinent finding (left knee area: (+) edema , mild warmth, no tenderness; mild lower leg edema, poor ROM due to pain; right leg essentially normal) 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 LEFT DISTAL FEMUR FRACTURE - s/p Fall - CT Left Lower Ext: IMPRESSION: 1. Acute comminuted mildly displaced impacted distal left femoral intercondylar fracture which involves the distal shaft and medial and lateral condyles with extension to the medial trochlea. 2. Associated moderate-sized left knee joint effusion with lipohemarthrosis. 3. Severe tricompartmental osteoarthritis of the left knee, most pronounced within the medial patellofemoral compartments. - Ortho consulted- Dr. Paul Mccormick no surgical intervention at this time RECOMMENDATIONS: Use of a knee immobilizer, maintain nonweightbearing left lower extremity for a period of approximately 3 months. No weightbearing for at least 6-8 weeks. Walker for ambulation. If ambulation nonweightbearing not tolerated, may be bed to wheel chair if needed. [facility]-14 DAYS. IF PAIN WORSENS OVER TIME, PLEASE CALL THE OFFICE. [phone] - continue PT/OT Heparin subcutaneous q12h ordered for DVT prophylaxis ANEMIA - Hg 8.4 - no signs of active bleeding - monitor - further work up as outpatient MICROSCOPIC HEMATURIA - will need repeat UA HYPERTENSION - increased Amlodipine to improve BP - continue Metoprolol, Lisinopril, Lasix - monitor BP daily CKD 3 - stable HYPOTHYROIDISM - continue L thyroxine HISTORY OF CVA - continue Plavix DVT PROPHYLAXIS - heparin CODE STATUS Full Code per patient DISPOSITION Rehab/SNF upon discharge FOLLOW UP WITH [facility] IN 10-14 DAYS. IF PAIN WORSENS OVER TIME , PLEASE CALL THE OFFICE. [phone] FOLLOW UP WITH PRIMARY CARE PHYSICIAN 1 WEEK AFTER DISCHARGE FROM REHAB. Total time spent on discharge = 35 MINUTES This includes examination of the patient, discharge planning, medication reconciliation, and communication with other providers. Discharge Instructions Discharge Instructions Date of Service Oct 04, 2016. Admission Reason for Admission: Left Femur Fracture Discharge Discharge Diagnosis / Problem: LEFT FEMUR FRACTURE Discharge Goals Goal(s): Diagnostic testing Activity Recommendations Activity Level: Assistance Required Therapies: Physical Therapy, Occupational Therapy Weightbearing Status: Left non-weightbearing ORTHOPEDIC RECOMMENDATIONS: Use of a knee immobilizer, maintain nonweightbearing left lower extremity for a period of approximately 3 months. No weightbearing for at least 6-8 weeks. Walker for ambulation. If ambulation nonweightbearing not tolerated, may be bed to wheel chair if needed. Additional Information Patient informed of condition: Yes Advance Directives: No DNR: No (PATIENT IS FULL CODE) Level of Care: Acute Rehab Communicable Disease: No Prognosis: Stable Instructions / Follow-Up Instructions / Follow-Up ORTHOPEDIC RECOMMENDATIONS: Use of a knee immobilizer, maintain nonweightbearing left lower extremity for a period of approximately 3 months. No weightbearing for at least 6-8 weeks. Walker for ambulation. If ambulation nonweightbearing not tolerated, may be bed to wheel chair if needed. FOLLOW UP WITH [facility] IN 10-14 DAYS. IF PAIN WORSENS OVER TIME , PLEASE CALL THE OFFICE. [phone] MONITOR BLOOD PRESSURE DAILY. ADJUST MEDICATIONS NEEDED. PLEASE REFER TO [facility] DISCHARGE SUMMARY FOR FURTHER DETAILS. FOLLOW UP WITH PRIMARY CARE PHYSICIAN 1 WEEK AFTER DISCHARGE FROM REHAB. Current Hospital Diet Patient's current hospital diet: Regular Diet Discharge Diet Recommended Diet: AHA Diet (Heart Healthy) Procedures Procedures Performed: CT LEFT KNEE, LEFT LOWER EXTREMITY ULTRASOUND Pending Studies Studies pending at discharge: no List of pending studies: PLEASE REFER TO ACCOMPANYING DISCHARGE SUMMARY. Physician Orders On Transfer Special Precautions: ORTHOPEDIC RECOMMENDATIONS: Use of a knee immobilizer, maintain nonweightbearing left lower extremity for a period of approximately 3 months. No weightbearing for at least 6-8 weeks. Walker for ambulation. If ambulation nonweightbearing not tolerated, may be bed to wheel chair if needed. [facility]LLOW UP [facility] IN 10-14 DAYS. IF PAIN WORSENS OVER TIME , PLEASE CALL THE OFFICE. [phone] MONITOR BLOOD PRESSURE DAILY. ADJUST MEDICATIONS NEEDED. PLEASE REFER TO [facility]OSPITAL DISCHARGE SUMMARY FOR FURTHER DETAILS. FOLLOW UP WITH PRIMARY CARE PHYSICIAN 1 WEEK AFTER DISCHARGE FROM REHAB. Medical Emergencies . Who to Call and When: Medical Emergencies: If at any time you feel your situation is an emergency, please call 911 immediately. . Non-Emergent Contact Non-Emergency issues call your: Primary Care Provider, Surgeon Call Non-Emergent contact if: you have a fever, your pain is not controlled, your pain is worsening, you have any medication questions . . "Provider Documentation" section prepared by Ajit Talbert. . Suppression Crew Leader Recommendations Suppression Crew Leader Recommendations: RECOMMENDATIONS: Use of a knee immobilizer, maintain nonweightbearing left lower extremity for a period of approximately 3 months. No weightbearing for at least 6-8 weeks. Walker for ambulation. If ambulation nonweightbearing not tolerated, may be bed to wheel chair if needed. FOLLOW UP WITH [facility] IN 10-14 DAYS. IF PAIN WORSENS OVER TIME , PLEASE CALL THE OFFICE. [phone] Core Measure Problem Core Measures: None
[2016-10-04 19:39] VITALS: BP 154/66; PULSE 66; TEMP 36.8; O2SAT 95
== END 2016-10-04 20:00 | DRG 534 ==
LOC: EDBD 04:35 → C.EDB 04:35 → C.MSN 08:00 → ENRESERV 08:39
PROVIDERS: ADMIT Internal Medicine; ATTEND Internal Medicine
PROC: 2W3MX1Z Immobilization of Left Lower Extremity using Splint (ICD-10-PCS; principal; 2016-09-30)
DX: S72.422A Displaced fracture of lateral condyle of left femur, initial encounter for closed fracture (principal); S72.432A Displaced fracture of medial condyle of left femur, initial encounter for closed fracture; S72.352A Displaced comminuted fracture of shaft of left femur, initial encounter for closed fracture; V00.838A Other accident with motorized mobility scooter, initial encounter; Y92.838 Other recreation area as the place of occurrence of the external cause; D64.9 Anemia, unspecified; R31.29 Other microscopic hematuria; I12.9 Hypertensive chronic kidney disease with stage 1 through stage 4 chronic kidney disease, or unspecified chronic kidney disease; N18.3 Chronic kidney disease, stage 3 (moderate); E78.5 Hyperlipidemia, unspecified; E03.9 Hypothyroidism, unspecified; M81.0 Age-related osteoporosis without current pathological fracture; M19.90 Unspecified osteoarthritis, unspecified site; Z86.73 Personal history of transient ischemic attack (TIA), and cerebral infarction without residual deficits; Z79.02 Long term (current) use of antithrombotics/antiplatelets; Z79.891 Long term (current) use of opiate analgesic; Z79.899 Other long term (current) drug therapy; S89.92XA Unspecified injury of left lower leg, initial encounter; F41.9 Anxiety disorder, unspecified; F32.9 Major depressive disorder, single episode, unspecified; Z80.9 Family history of malignant neoplasm, unspecified; Z83.3 Family history of diabetes mellitus; Z84.1 Family history of disorders of kidney and ureter; Z82.49 Family history of ischemic heart disease and other diseases of the circulatory system

== ENCOUNTER → 2016-10-27 | Outpatient (CLI) | payer OTHER ==
[~2016-10-27] MED LIST changes: -AMLO-110 PO; +ENOX1INJ8 INJ; +HPRIS5M SQ; +NRV5 PO
[2016-10-27 13:15] LABS: URINE APPEARANCE CLEAR (CLEAR); URINE BILIRUBIN NEG (NEG); URINE COLOR YELLOW; URINE EPITHELIAL CELL AUTO 20-30 /lpf (0-5); URINE NITRITE NEG (NEG); URINE PH 5.5 (4.5-7.5); URINE SPECIFIC GRAVITY 1.013 (1.000-1.030); UROBILINOGEN NEG (NEG)
[2016-10-27 13:17] LABS: MANUAL MICROSCOPIC REQUIRED? NO; REVIEW REQ? YES
--- NOTE | 2016-11-03 12:56 | CODING QUERY NO DIAGNOSIS ---
: 1935 TREATMENT RENDERED WITHOUT A DIAGNOSIS To promote full compliance with coding requirements relating to patient care, physician participation is requested in all cases of clother in uncertainty. Please assist us with providing a diagnosis/symptom for the test(s) below: A diagnosis/symptom was not documented on your Order. A valid diagnosis/symptom is required to bill all insurances. Please remember that we are unable to code a diagnosis of rule out, probable, possible, questionable, or suspected. Tests that require a diagnosis: DOS: 10/27/16 * UA CLEAN CATCH DIAGNOSIS: * URINE CULTURE CLEAN CATCH DIAGNOSIS: Provider Signature: Date: Thank you Yu [facility] Health Information Management Once completed, please kindly fax back to [phone] For questions please call [phone]
== END | disposition home or self-care (01) ==
LOC: C.LABSPEC 12:51
PROVIDERS: ATTEND Family Medicine
DX: R30.0 Dysuria (principal)

== ENCOUNTER 2016-10-29 10:30 | Emergency (ER) | payer OTHER ==
[~2016-10-29] VITALS: Ht 162.6 cm; Wt 68.0 kg
[~2016-10-29 10:30] MED LIST changes: -ENOX1INJ8 INJ
[2016-10-29 10:35] VITALS: Ht 162.6 cm; Wt 68.0 kg
[2016-10-29 10:41] VITALS: O2SAT 97
--- NOTE | 2016-10-29 11:59 | DIAGNOSTIC IMAGING REPORT ---
CHEST ONE VIEW PORTABLE CLINICAL HISTORY: Cough. Chest pain. COMPARISON STUDY: Chest radiograph October 01, 2016. FINDINGS: Lung volumes are normal. No pneumothorax or pleural effusion is present. There is no consolidation to suggest pneumonia. Pulmonary vascularity is normal. Cardiomediastinal silhouette is normal. Right hilar prominence is unchanged. IMPRESSION: No acute cardiopulmonary findings. Electronically signed by: Erik Vera M.D. 10/29/2016 11:57 AM Dictated Date/Time: 10/29/2016 11:55 AM
[2016-10-29 12:06] LABS: BASO % 0.4 %; BASO ABS # 0.04 K/uL (0-0.2); COMPLETE YES; EOS % 1.6 %; HEMATOCRIT 31.9 % (37-47); IG% 0.4 %; LYMPH % 7.7 %; LYMPH ABS # 0.88 K/uL (1.2-3.4); MEAN CELL VOLUME 83.5 fL (80-100); MEAN CORPUSCULAR HEMOGLOBIN 25.9 pg (25-34); MONO % 9.7 %; NEUT % 80.2 %; PLATELET COUNT 358 K/uL (130-400); RED BLOOD COUNT 3.82 M/uL (4.2-5.4); WHITE BLOOD COUNT 11.36 K/uL (4.8-10.8)
[2016-10-29 12:22] LABS: BLOOD UREA NITROGEN 17 mg/dl (7-18); BUN/CREATININE RATIO 21.7 (10-20); CALCIUM 8.1 mg/dl (8.5-10.1); CARBON DIOXIDE 32 mmol/L (21-32); CHLORIDE 100 mmol/L (98-107); CREATININE 0.76 mg/dl (0.60-1.20); GLUCOSE 111 mg/dl (70-99); POTASSIUM 3.8 mmol/L (3.5-5.1); SODIUM 137 mmol/L (136-145)
[2016-10-29 12:27] LABS: ALKALINE PHOSPHATASE 190 U/L (45-117); ALT/SGPT 12 U/L (12-78); AST/SGOT 18 U/L (15-37)
[2016-10-29] MEDS ORDERED: OPTIRAY 320 IV PRN (12:45)
--- NOTE | 2016-10-29 13:37 | DIAGNOSTIC IMAGING REPORT ---
CT ANGIOGRAM OF THE CHEST CLINICAL HISTORY: Atypical chest pain COMPARISON STUDY: No previous studies for comparison. TECHNIQUE: Following the IV administration of 85 mL of Optiray-320, CT angiogram of the thorax was performed from the thoracic inlet to the lung bases utilizing the pulmonary embolus protocol. Images are reviewed in the axial, sagittal, and coronal planes. IV contrast was administered without complication. MIP imaging was performed. A dose lowering technique was utilized adhering to the principles of ALARA. CT DOSE: 388.37 mGycm FINDINGS: There is a multinodular thyroid gland. There is no evidence of pathologic adenopathy by size criteria. There was no evidence of thoracic aortic dilatation. There is respiratory motion artifact, limiting evaluation of lower lobe pulmonary artery branches. There are no filling defects to indicate acute pulmonary embolism. There are no pleural effusions There is respiratory motion artifact limiting evaluation of the parenchyma. There is no lobar consolidation. There are left basal airspace opacities likely atelectatic. There is mild lower lobe bronchial wall thickening. There is focal eventration of the left hemidiaphragm. IMPRESSION: 1. No evidence of acute pulmonary embolism 2. No evidence of pathologic adenopathy 3. No evidence of focal pulmonary consolidation 4. Minor lower lobe bronchial wall thickening Electronically signed by: Dennis Rowan M.D. 10/29/2016 1:35 PM Dictated Date/Time: 10/29/2016 1:30 PM
[2016-10-29] MEDS ORDERED: ENOX1INJ8 INJ (13:46)
[2016-10-29 13:58] VITALS: BP 135/55; PULSE 65; O2SAT 99
--- NOTE | 2016-10-29 15:46 | EMERGENCY ROOM VISIT NOTE ---
History Report prepared by Queenie: Kristel Long Under the Supervision of: Dr. Long Angeles D.O. First contact with patient: 10:50 Chief Complaint: RIB PAIN Stated Complaint: CHEST/ABDOMINAL PAIN History of Present Illness The patient is an 81 year old female who presents to the Emergency Room with complaints of persistent right sided rib pain that began two days ago. Per the patient's daughter, the patient fell one month ago and broke her femur. She notes that the patient has been doing well since then. The patient's daughter states that the patient developed right sided rib pain on Tuesday night with transfer from her wheelchair to the toilet. The patient reports increased shortness of breath and increased pain with movement. She denies any pain with inspiration. The patient denies any new trauma to the area. The patient's daughter states that the patient is on Lovenox shots daily since the fall. Pt denies headache, change in vision, fevers, jaw pain, arm pain, chest pain, nausea, vomiting, diarrhea, and pain with urination. Source of History: patient, family (daughter) Onset: two days ago Position: other (right sided rib) Timing: other (persistent) Modifying Factors (Worsening): movement Associated Symptoms: + SOB Review of Systems See HPI for pertinent positives & negatives. A total of 10 systems reviewed and were otherwise negative. Past Medical & Surgical Medical Problems: (1) Adjustment reaction with anxiety and depression (2) CKD (chronic kidney disease) stage 3, GFR 30-59 ml/min (3) Dyslipidemia (4) History of CVA (cerebrovascular accident) (5) HTN (hypertension) (6) Hypothyroidism (7) Osteoarthritis (8) Osteoporosis (9) Renal lesion Surgical Problems: (1) History of hip surgery (2) No significant past surgical history Family History Cancer Diabetes mellitus FH: kidney disease Hypertension Social History Smoking Status: Never Smoker Drug Use: none Housing Status: lives with family Current/Historical Medications Scheduled Amlodipine Besylate (Amlodipine Besylate), 10 MG PO QAM Atorvastatin (Lipitor), 10 MG PO QPM Calcium W/ Vitamins D & K (Viactiv), 1 TAB PO TID Clopidogrel (Plavix), 75 MG PO QAM Enoxaparin Sodium (Lovenox), 1 DOSE INJ DAILY Furosemide (Lasix), 40 MG PO QAM Levothyroxine Sodium (Levothyroxine Sodium), 25 MCG PO QAM Lisinopril (Zestril), 40 MG PO QAM Metoprolol Tartrate (Lopressor) (Lopressor), 12.5 MG PO BID Omeprazole (Prilosec), 20 MG PO HS Sertraline (Zoloft), 25 MG PO HS Scheduled PRN Docusate Sodium (Colace), 1 CAP PO BID PRN for CON Oxycodone Ir (Roxicodone Ir), 1 TAB PO Q6 PRN for Pain Polyethylene Glycol 3350 (Miralax), 17 GM PO DAILY PRN for Constipation Allergies Coded Allergies: Aspirin (Verified Allergy, Severe, ANAPHYLAXIS, SWELLING, 10/29/16) Physical Exam Vital Signs Date Time Temp Pulse Resp B/P (MAP) Pulse Ox O2 Delivery O2 Flow Rate FiO2 10/29/16 13:58 65 18 135/55 99 Room Air 10/29/16 12:32 67 20 139/49 98 Room Air 10/29/16 10:41 97 Room Air 10/29/16 10:35 37.1 62 18 138/43 99 Room Air Physical Exam GENERAL: alert, chronically ill appearing, disheveled, well nourished, no distress, non-toxic EYE EXAM: normal conjunctiva. OROPHARYNX: no exudate, no erythema, lips, buccal mucosa, and tongue normal and mucous membranes are moist NECK: supple, no nuchal rigidity, no adenopathy, non-tender CHEST: Right breast small contusion with tenderness to palpation LUNGS: Clear to auscultation. Normal chest wall mechanics HEART: Systolic ejection murmur, S1 normal and S2 normal ABDOMEN: abdomen soft, non-tender, normo-active bowel sounds, no masses, no rebound or guarding. BACK: Back is symmetrical on inspection and there is no deformity, no midline tenderness, no CVA tenderness. SKIN: no rashes and no bruising UPPER EXTREMITIES: upper extremities are grossly normal. LOWER EXTREMITIES: Left leg in a soft splint, No pitting edema. NEURO EXAM: Normal sensorium, cranial nerves II-XII grossly intact, normal speech. Medical Decision & Procedures ER Provider Diagnostic Interpretation: Radiology results as stated below per my review and the radiologist's interpretation: CHEST ONE VIEW PORTABLE CLINICAL HISTORY: Cough. Chest pain. COMPARISON STUDY: Chest radiograph October 01, 2016. FINDINGS: Lung volumes are normal. No pneumothorax or pleural effusion is present. There is no consolidation to suggest pneumonia. Pulmonary vascularity is normal. Cardiomediastinal silhouette is normal. Right hilar prominence is unchanged. IMPRESSION: No acute cardiopulmonary findings. Electronically signed by: Erik Vera M.D. 10/29/2016 11:57 AM Dictated Date/Time: 10/29/2016 11:[address] ANGIOGRAM OF THE CHEST CLINICAL HISTORY: Atypical chest pain COMPARISON STUDY: No previous studies for comparison. TECHNIQUE: Following the IV administration of 85 mL of Optiray-320, CT angiogram of the thorax was performed from the thoracic inlet to the lung bases utilizing the pulmonary embolus protocol. Images are reviewed in the axial, sagittal, and coronal planes. IV contrast was administered without complication. MIP imaging was performed. A dose lowering technique was utilized adhering to the principles of ALARA. CT DOSE: 388.37 mGycm FINDINGS: There is a multinodular thyroid gland. There is no evidence of pathologic adenopathy by size criteria. There was no evidence of thoracic aortic dilatation. There is respiratory motion artifact, limiting evaluation of lower lobe pulmonary artery branches. There are no filling defects to indicate acute pulmonary embolism. There are no pleural effusions There is respiratory motion artifact limiting evaluation of the parenchyma. There is no lobar consolidation. There are left basal airspace opacities likely atelectatic. There is mild lower lobe bronchial wall thickening. There is focal eventration of the left hemidiaphragm. IMPRESSION: 1. No evidence of acute pulmonary embolism 2. No evidence of pathologic adenopathy 3. No evidence of focal pulmonary consolidation 4. Minor lower lobe bronchial wall thickening Electronically signed by: Dennis Rowan M.D. 10/29/2016 1:35 PM Dictated Date/Time: 10/29/2016 1:30 PM Laboratory Results 10/29/16 11:40 Red Blood Count 3.82, Mean Corpuscular Volume 83.5, Mean Corpuscular Hemoglobin 25.9, Mean Corpuscular Hemoglobin Concent 31.0, Mean Platelet Volume 9.0, Neutrophils (%) (Auto) 80.2, Lymphocytes (%) (Auto) 7.7, Monocytes (%) (Auto) 9.7, Eosinophils (%) (Auto) 1.6, Basophils (%) (Auto) 0.4, Neutrophils # (Auto) 9.11, Lymphocytes # (Auto) 0.88, Monocytes # (Auto) 1.10, Eosinophils # (Auto) 0.18, Basophils # (Auto) 0.04 10/29/16 11:40 Test 10/29/16 11:40 White Blood Count 11.36 K/uL (4.8-10.8) Red Blood Count 3.82 M/uL (4.2-5.4) Hemoglobin 9.9 g/dL (12.0-16.0) Hematocrit 31.9 % (37-47) Mean Corpuscular Volume 83.5 fL (80-100) Mean Corpuscular Hemoglobin 25.9 pg (25-34) Mean Corpuscular Hemoglobin Concent 31.0 g/dl (32-36) Platelet Count 358 K/uL (130-400) Mean Platelet Volume 9.0 fL (7.4-10.4) Neutrophils (%) (Auto) 80.2 % Lymphocytes (%) (Auto) 7.7 % Monocytes (%) (Auto) 9.7 % Eosinophils (%) (Auto) 1.6 % Basophils (%) (Auto) 0.4 % Neutrophils # (Auto) 9.11 K/uL (1.4-6.5) Lymphocytes # (Auto) 0.88 K/uL (1.2-3.4) Monocytes # (Auto) 1.10 K/uL (0.11-0.59) Eosinophils # (Auto) 0.18 K/uL (0-0.5) Basophils # (Auto) 0.04 K/uL (0-0.2) RDW Standard Deviation 46.0 fL (36.4-46.3) RDW Coefficient of Variation 14.9 % (11.5-14.5) Immature Granulocyte % (Auto) 0.4 % Immature Granulocyte # (Auto) 0.05 K/uL (0.00-0.02) Anion Gap 5.0 mmol/L (3-11) Est Creatinine Clear Calc Drug Dose 53.2 ml/min Estimated GFR () 84.1 Estimated GFR (Non- 72.5 BUN/Creatinine Ratio 21.7 (10-20) Calcium Level 8.1 mg/dl (8.5-10.1) Total Bilirubin 0.2 mg/dl (0.2-1) Direct Bilirubin 0.1 mg/dl (0-0.2) Aspartate Amino Transf (AST/SGOT) 18 U/L (15-37) Alanine Aminotransferase (ALT/SGPT) 12 U/L (12-78) Alkaline Phosphatase 190 U/L (45-117) Troponin I < 0.015 ng/ml (0-0.045) Total Protein 6.6 gm/dl (6.4-8.2) Albumin 2.6 gm/dl (3.4-5.0) Lipase 154 U/L (73-393) Laboratory results per my review. ECG Indication: SOB/dyspnea Rate (beats per minute): 61 Rhythm: sinus rhythm Findings: other (normal axis, intraventricular conduction delay in the septal leads, flipped T wave in lead III) Comparison ECG Date: 08/16/16 Change: no significant change ED Course ED COURSE: Vital signs were reviewed and showed hypertension The patients medical record was reviewed The above diagnostic studies were performed and reviewed. ED treatments and interventions as stated above. 1051: The patient was evaluated in room B11A. A complete history and physical examination was performed by the medical student. 1129: The patient was evaluated in room B11A. A complete history and physical examination was performed. 1350: Upon reevaluation, the patient is resting comfortably.I discussed my findings with the patient and she understands and agrees with the treatment plan. Based on the patients age, coexisting illnesses, exam and lab findings the decision to treat as an outpatient was made. The patient remained stable while under my care. The patient appeared well at the time of discharge. Medical Decision Differential diagnoses includes but is not limited to acute coronary syndrome, myocardial infarction, pericarditis, pulmonary embolus, aortic dissection, pneumonia, pneumothorax, musculoskeletal, shingles, esophageal. Patient is an 81-year-old female that presents to the ER for right-sided rib pain which is only present when her family transverse her from one place to another. She notes it is acutely tender. She also admits that there is bruising present. CBC shows a hemoglobin of 9.9. BMP along with LFTs, bilirubin and lipase is unremarkable. Troponin was negative. EKG was unremarkable. CT PE shows no acute pathology, fractures or PEs. Patient family were updated in regards to this. I do believe that this is likely musculoskeletal. She is discharged to take Tylenol as needed. Discussed with Pt concerning signs and symptoms to watch out for. Pt was instructed to follow up with their PCP and discussed with the patient their option to return to the ED at anytime for persistent or worsening symptoms. The appropriate anticipatory guidance and out-patient management, including indications for return to the emergency department, were explained at length to the patient and understood. Medication Reconcilliation Current Medication List: was personally reviewed by me Blood Pressure Screening Patient's blood pressure: Elevated blood pressure Blood pressure disposition: Elevated BP felt to be situational, Did not require urgent referral Impression Primary Impression: Right-sided chest wall pain Additional Impression: Anemia Scribe Attestation The scribe's documentation has been prepared under my direction and personally reviewed by me in its entirety. I confirm that the note above accurately reflects all work, treatment, procedures, and medical decision making performed by me. Departure Information Dispostion Home / Self-Care Referrals Cathleen Infante D.O. (PCP) Forms HOME CARE DOCUMENTATION FORM, IMPORTANT VISIT INFORMATION, WORK / SCHOOL INSTRUCTIONS Patient Instructions ED Contusion Chest Wall, My [facility] Additional Instructions Please follow up with your primary care doctor or if you are a student, [facility] with in the next 24 hours. Any worsening of your symptoms, please return to the ED immediately. This includes any fevers greater than 100.4, worsening pain, chest pain, shortness breath, persistent nausea, vomiting, unable to eat or drink, or any other concerning signs or symptoms from your standpoint. You were given medications during this visit that will inhibit your ability to drive, operate machinery and work. Please do NOT drive, operate machinery, drink alcohol or work for the next 12hrs. Please take Tylenol as needed for pain. Problem Qualifiers Additional Impression: Anemia Anemia type: unspecified type Qualified Codes: D64.9 - Anemia, unspecified
== END 2016-10-29 14:05 | disposition home or self-care (01) ==
LOC: EDBD 10:30 → C.EDB 10:31
DX: R07.89 Other chest pain (principal); D64.9 Anemia, unspecified; S20.01XA Contusion of right breast, initial encounter; X58.XXXA Exposure to other specified factors, initial encounter; F43.23 Adjustment disorder with mixed anxiety and depressed mood; I12.9 Hypertensive chronic kidney disease with stage 1 through stage 4 chronic kidney disease, or unspecified chronic kidney disease; N18.3 Chronic kidney disease, stage 3 (moderate); E78.5 Hyperlipidemia, unspecified; E03.9 Hypothyroidism, unspecified; M19.90 Unspecified osteoarthritis, unspecified site; M81.0 Age-related osteoporosis without current pathological fracture; N28.9 Disorder of kidney and ureter, unspecified; Z86.73 Personal history of transient ischemic attack (TIA), and cerebral infarction without residual deficits; Z83.3 Family history of diabetes mellitus; Z82.49 Family history of ischemic heart disease and other diseases of the circulatory system; Z79.01 Long term (current) use of anticoagulants

== ENCOUNTER 2017-02-16 15:20 | Emergency (ER) | payer OTHER ==
[~2017-02-16] VITALS: Ht 162.6 cm; Wt 71.4 kg
[~2017-02-16 15:20] MED LIST changes: +ATOR10TA82 PO; -ATOR10TA88 PO; -DOCU-94 PO; +ENOX1INJ8 INJ; -HPRIS5M SQ
[2017-02-16 15:34] VITALS: TEMP 37.4; Ht 162.6 cm; Wt 71.4 kg
[2017-02-16 15:37] VITALS: O2SAT 94
[2017-02-16] MEDS ORDERED: ALBUT/IPRATROP 3MG/0.5MG NEB 3 ML VIAL INH ONE (15:45)
--- NOTE | 2017-02-16 15:46 | EMERGENCY ROOM VISIT NOTE ---
History Report prepared by Queenie: Belén Lorenz Under the Supervision of: Dr. Salvador Fernandez M.D. First contact with patient: 15:27 Chief Complaint: SHORTNESS OF BREATH Stated Complaint: SOB Nursing Triage Summary: PT has FX to left leg, brace on at this time. PT non weight bearing has home health daily. Today PT sent in for possible pneumonia. PT denies CP or SOB. PT does have cough with white sputum X 2-3 days. PT has no other complaints at this time. PT has expiratory wheezing in all lung wick at this time. History of Present Illness The patient is a 81 year old female who presents to the Emergency Room with complaints of an constant productive cough with white sputum beginning a week ago. The patient believes she has pneumonia but denies any chest pain or shortness of breath. The patient has a fracture to her left leg but notes she has not had surgery on her leg yet. Per nursing note, the patient is non weight bearing and has home health care daily. The in home care called the patient's PCP who refereed the patient to come into the ED for her cough. Grand daughter reports the patient has also had "foul" smelling urine. The patient takes a water pill. The patient lives with family. Source of History: patient Onset: a week ago Position: other (generalized) Quality: other (cough) Associated Symptoms: + cough, + urinary symptoms, No chest pain, No SOB Review of Systems See HPI for pertinent positives and negatives. A total of ten systems were reviewed and were otherwise negative. Past Medical & Surgical Medical Problems: (1) Adjustment reaction with anxiety and depression (2) CKD (chronic kidney disease) stage 3, GFR 30-59 ml/min (3) Dyslipidemia (4) History of CVA (cerebrovascular accident) (5) HTN (hypertension) (6) Hypothyroidism (7) Osteoarthritis (8) Osteoporosis (9) Renal lesion Surgical Problems: (1) History of hip surgery (2) No significant past surgical history Family History Cancer Diabetes mellitus FH: kidney disease Hypertension Social History Smoking Status: Never Smoker Drug Use: none Housing Status: lives with family Current/Historical Medications Scheduled Amlodipine Besylate (Amlodipine Besylate), 10 MG PO QAM Atorvastatin (Lipitor), 10 MG PO QPM Azithromycin (Zithromax), 250 MG PO DAILY Calcium Carbonate-Cholecalcife (Calcium 500+D3 500-400 mg-Unit), 1 TAB PO BID Clopidogrel Bisulfate (Clopidogrel), 75 MG PO QAM Enoxaparin (Enoxaparin Sodium), 40 MG SC HS Furosemide (Furosemide), 20 MG PO QAM Levothyroxine Sodium (Levothyroxine Sodium), 25 MCG PO QAM Lisinopril (Lisinopril), 40 MG PO QAM Meloxicam (Mobic), 7.5 MG PO DAILY Metoprolol Tartrate (Lopressor) (Lopressor), 12.5 MG PO BID Pantoprazole (Pantoprazole Sodium), 40 MG PO QAM Prednisone (Prednisone), 3 TAB PO DAILY Sertraline HCl (Sertraline HCl), 25 MG PO HS Scheduled PRN Docusate Sodium (Colace), 100 MG PO BID PRN for Constipation Fluticasone Propionate (Fluticasone Propionate), 2 SPRAYS SHOSHANA DAILY PRN for Nasal Congestion Oxycodone HCl (Oxycodone HCl), 5 MG PO Q6H PRN for Pain Polyethylene Glycol 3350 (Miralax), 17 GM PO DAILY PRN for Constipation Allergies Coded Allergies: Aspirin (Verified Allergy, Severe, ANAPHYLAXIS, SWELLING, 10/29/16) Physical Exam Vital Signs Date Time Temp Pulse Resp B/P (MAP) Pulse Ox O2 Delivery O2 Flow Rate FiO2 02/16/17 18:35 100 20 144/87 94 02/16/17 18:15 106 20 94/77 94 Room Air 02/16/17 16:40 73 18 93 Room Air 02/16/17 15:37 94 Room Air 02/16/17 15:34 37.4 70 18 126/43 93 Room Air 02/16/17 15:29 69 Physical Exam GENERAL: Awake, alert, well-appearing, in no distress HENT: Normocephalic, atraumatic. Oropharynx unremarkable. Dry MM. EYES: Normal conjunctiva. Sclera non-icteric. NECK: Supple. No nuchal rigidity. FROM. No JVD. RESPIRATORY: Scant wheezes throughout but otherwise clear. CARDIAC: Regular rate, normal rhythm. Extremities warm and well perfused. Pulses equal. ABDOMEN: Soft, non-distended. No tenderness to palpation. No rebound or guarding. No masses. RECTAL: Deferred. MUSCULOSKELETAL: Chest examination reveals no tenderness. The back is symmetrical on inspection without obvious abnormality. There is no CVA tenderness to palpation. No joint edema. LOWER EXTREMITIES: Left leg with brace immobilizer. NEURO: Normal sensorium. No sensory or motor deficits noted. SKIN: No rash or jaundice noted. Medical Decision & Procedures ER Provider Diagnostic Interpretation: Radiology results as stated below per my review and radiologist interpretation: CHEST ONE VIEW PORTABLE FINDINGS: The heart is normal in size. There is no failure. There are increased left basal markings, atelectatic versus infectious/inflammatory. Clinical and radiographic follow-up is recommended. There are no significant pleural effusions.[ IMPRESSION: Left basilar opacities, atelectatic versus infectious/inflammatory. Clinical and radiographic follow-up is recommended. Electronically signed by: Dennis Rowan M.D. Laboratory Results 02/16/17 16:10 Red Blood Count 4.38, Mean Corpuscular Volume 80.1, Mean Corpuscular Hemoglobin 25.8, Mean Corpuscular Hemoglobin Concent 32.2, Mean Platelet Volume 9.2, Neutrophils (%) (Auto) 71.1, Lymphocytes (%) (Auto) 15.1, Monocytes (%) (Auto) 11.0, Eosinophils (%) (Auto) 2.2, Basophils (%) (Auto) 0.2, Neutrophils # (Auto ) 7.57, Lymphocytes # (Auto) 1.60, Monocytes # (Auto) 1.17, Eosinophils # (Auto ) 0.23, Basophils # (Auto) 0.02 02/16/17 16:10 Test 02/16/17 16:10 02/16/17 16:40 White Blood Count 10.63 K/uL (4.8-10.8) Red Blood Count 4.38 M/uL (4.2-5.4) Hemoglobin 11.3 g/dL (12.0-16.0) Hematocrit 35.1 % (37-47) Mean Corpuscular Volume 80.1 fL (80-100) Mean Corpuscular Hemoglobin 25.8 pg (25-34) Mean Corpuscular Hemoglobin Concent 32.2 g/dl (32-36) Platelet Count 250 K/uL (130-400) Mean Platelet Volume 9.2 fL (7.4-10.4) Neutrophils (%) (Auto) 71.1 % Lymphocytes (%) (Auto) 15.1 % Monocytes (%) (Auto) 11.0 % Eosinophils (%) (Auto) 2.2 % Basophils (%) (Auto) 0.2 % Neutrophils # (Auto) 7.57 K/uL (1.4-6.5) Lymphocytes # (Auto) 1.60 K/uL (1.2-3.4) Monocytes # (Auto) 1.17 K/uL (0.11-0.59) Eosinophils # (Auto) 0.23 K/uL (0-0.5) Basophils # (Auto) 0.02 K/uL (0-0.2) RDW Standard Deviation 47.7 fL (36.4-46.3) RDW Coefficient of Variation 16.2 % (11.5-14.5) Immature Granulocyte % (Auto) 0.4 % Immature Granulocyte # (Auto) 0.04 K/uL (0.00-0.02) Anion Gap 6.0 mmol/L (3-11) Est Creatinine Clear Calc Drug Dose 46.4 ml/min Estimated GFR () 69.5 Estimated GFR (Non- 59.9 BUN/Creatinine Ratio 19.7 (10-20) Calcium Level 8.3 mg/dl (8.5-10.1) Total Bilirubin 0.2 mg/dl (0.2-1) Direct Bilirubin < 0.1 mg/dl (0-0.2) Aspartate Amino Transf (AST/SGOT) 11 U/L (15-37) Alanine Aminotransferase (ALT/SGPT) 12 U/L (12-78) Alkaline Phosphatase 91 U/L (45-117) Troponin I < 0.015 ng/ml (0-0.045) Pro-B-Type Natriuretic Peptide 740 pg/ml (0-1800) Total Protein 6.8 gm/dl (6.4-8.2) Albumin 3.0 gm/dl (3.4-5.0) Lipase 142 U/L (73-393) Urine Color YELLOW Urine Appearance CLEAR (CLEAR) Urine pH 7.0 (4.5-7.5) Urine Specific [place] 1.012 (1.000-1.030) Urine Protein NEG (NEG) Urine Glucose (UA) NEG (NEG) Urine Ketones NEG (NEG) Urine Occult Blood TRACE (NEG) Urine Nitrite NEG (NEG) Urine Bilirubin NEG (NEG) Urine Urobilinogen NEG (NEG) Urine Leukocyte Esterase NEG (NEG) Urine WBC (Auto) 0 /hpf (0-5) Urine RBC (Auto) 0-4 /hpf (0-4) Urine Hyaline Casts (Auto) 0 /lpf (0-5) Urine Epithelial Cells (Auto) 0-5 /lpf (0-5) Urine Bacteria (Auto) NEG (NEG) Influenza Type A Antigen Neg for Influ A (NEG) Influenza Type B Antigen Neg for Influ B (NEG) Laboratory results reviewed by me Medications Administered Medications (Trade) Dose Ordered Sig/Ebony Route Start Time Stop Time Status Last Admin Dose Admin Albuterol/ Ipratropium (Duoneb) 12 ml ONE ONCE INH 02/16/17 15:45 02/16/17 15:46 DC 02/16/17 15:45 12 ML Azithromycin (Zithromax Tab) 500 mg NOW STAT PO 02/16/17 17:35 02/16/17 17:39 DC 02/16/17 18:21 500 MG Albuterol (Ventolin Hfa Inhaler) 2 puffs NOW ONCE INH 02/16/17 17:45 02/16/17 17:46 DC 02/16/17 18:22 60 PUFFS Prednisone (PredniSONE TAB) 60 mg NOW STAT PO 02/16/17 17:35 02/16/17 17:39 DC 02/16/17 18:21 60 MG ECG Indication: SOB/dyspnea Rate (beats per minute): 65 Rhythm: normal sinus Findings: no acute ischemic change, other (normal axis) Comparison ECG Date: 10/29/16 Change: no significant change ED Course 1532: The patient was evaluated in room B4B. A complete history and physical exam was performed. 1730: I updated the patient on her test results. She is feeling better with the nebulizer treatment. 1752: I reevaluated the patient. Discussed results and discharge instructions: She verbalized understanding and agreement. The patient is ready for discharge. Medical Decision I reviewed the patient's past medical history, medications, and the nursing notes as described above. Differential Diagnoses include: pneumonia, bronchitis, UTI, dehydration, electrolyte abnormality, ACS, CHF, PE. The patient is an 81-year-old woman who presents emergency Department with cough over the past several days concern for pneumonia per history of present illness. On arrival the patient is no acute distress, afebrile with stable vital signs. She has scant wheeze. Labs unremarkable cleaning WBC and troponin within normal limits. Equivocal left basilar chest x-ray findings atelectasis versus inflammation versus PNA. Given the patient is afebrile with WBC within normal limits pneumonia less likely. Given the patient's report of cough and fatigue will treat for bronchitis. Patient feeling improved with continuous neb. Of note patient did have subsquent PVCs after continuos neb but otherwise without symptoms. Plan for prednisone and Azithro and pcp f/u. Findings and plan for follow-up reviewed with patient. Patient and granddaughter at bedside agreeable and d/c'd per discharge instructions. Medication Reconcilliation Current Medication List: was personally reviewed by me Blood Pressure Screening Patient's blood pressure: Normal blood pressure Impression Primary Impression: Acute bronchitis Scribe Attestation The scribe's documentation has been prepared under my direction and personally reviewed by me in its entirety. I confirm that the note above accurately reflects all work, treatment, procedures, and medical decision making performed by me. Departure Information Dispostion Home / Self-Care Prescriptions Azithromycin (Zithromax) 250 Mg Tab 250 MG PO DAILY, #4 TAB Prov: Salvador Fernandez M.D. 02/16/17 Prednisone (Prednisone) 20 Mg Tab 3 TAB PO DAILY for 4 Days, #12 TAB FOR 4 DAYS Prov: Salvador Fernandez M.D. 02/16/17 Referrals Cathleen Infante D.O. (PCP) Forms HOME CARE DOCUMENTATION FORM, IMPORTANT VISIT INFORMATION Patient Instructions ED Bronchitis Asthmatic, My [facility] Additional Instructions Please follow up with your primary care physician in the next 1-3 days for re- evaluation. You likely have a bronchitis. Otherwise, your exam, EKG, chest xray, and lab results did not show signs of an emergent condition at this time. Azithromycin and prednisone as directed. Albuterol inhaler with spacer every 4 hours from the next 48 hours and as needed thereafter. Return to the emergency department for worsening symptoms as described in the accompanying instructions.
[2017-02-16] MEDS ORDERED: PANT40TA2 PO (15:57)
[2017-02-16] MEDS ORDERED: LSN40 PO (15:57)
[2017-02-16] MEDS ORDERED: LVNIS40 SC (15:57)
[2017-02-16] MEDS ORDERED: MELO7.5T5 PO (15:57)
[2017-02-16] MEDS ORDERED: LSX20 PO (15:57)
[2017-02-16] MEDS ORDERED: PLV75 PO (15:57)
[2017-02-16] MEDS ORDERED: SERT1TAB88 PO (15:57)
[2017-02-16] MEDS ORDERED: FLNIN/ NAE (15:57)
[2017-02-16] MEDS ORDERED: NRV/10 PO (15:57)
[2017-02-16] MEDS ORDERED: OXYC-609 PO (16:02)
[2017-02-16] MEDS ORDERED: CALC-575 PO (16:10)
--- NOTE | 2017-02-16 16:21 | DIAGNOSTIC IMAGING REPORT ---
CHEST ONE VIEW PORTABLE CLINICAL HISTORY: Atypical chest pain COMPARISON STUDY: 10/27/2016 FINDINGS: The heart is normal in size. There is no failure. There are increased left basal markings, atelectatic versus infectious/inflammatory. Clinical and radiographic follow-up is recommended. There are no significant pleural effusions.[ IMPRESSION: Left basilar opacities, atelectatic versus infectious/inflammatory. Clinical and radiographic follow-up is recommended. Electronically signed by: Dennis Rowan M.D. 02/16/2017 4:20 PM Dictated Date/Time: 02/16/2017 4:19 PM
[2017-02-16 16:26] LABS: BASO % 0.2 %; BASO ABS # 0.02 K/uL (0-0.2); EOS % 2.2 %; EOS ABS # 0.23 K/uL (0-0.5); HEMATOCRIT 35.1 % (37-47); HEMOGLOBIN 11.3 g/dL (12.0-16.0); IG# 0.04 K/uL (0.00-0.02); LYMPH % 15.1 %; MEAN CELL VOLUME 80.1 fL (80-100); MEAN CORPUSCULAR HEMOGLOBIN 25.8 pg (25-34); MEAN CORPUSCULAR HGB CONC 32.2 g/dl (32-36); MEAN PLATELET VOLUME 9.2 fL (7.4-10.4); MONO ABS # 1.17 K/uL (0.11-0.59); NEUT % 71.1 %; NEUT ABS # 7.57 K/uL (1.4-6.5); PLATELET COUNT 250 K/uL (130-400); RED CELL DISTRIBUTION WIDTH CV 16.2 % (11.5-14.5); RED CELL DISTRIBUTION WIDTH SD 47.7 fL (36.4-46.3); WHITE BLOOD COUNT 10.63 K/uL (4.8-10.8)
[2017-02-16 16:40] VITALS: PULSE 73; O2SAT 93
[2017-02-16 16:51] LABS: ALT/SGPT 12 U/L (12-78); AST/SGOT 11 U/L (15-37); BLOOD UREA NITROGEN 18 mg/dl (7-18); CALCIUM 8.3 mg/dl (8.5-10.1); CARBON DIOXIDE 30 mmol/L (21-32); CREATININE 0.89 mg/dl (0.60-1.20); GLUCOSE 88 mg/dl (70-99); LIPASE 142 U/L (73-393); POTASSIUM 4.2 mmol/L (3.5-5.1); SODIUM 135 mmol/L (136-145)
[2017-02-16 16:56] LABS: ALKALINE PHOSPHATASE 91 U/L (45-117); TOTAL PROTEIN 6.8 gm/dl (6.4-8.2)
[2017-02-16 17:17] LABS: INFLUENZA B ANTIGEN Neg for Influ B (NEG)
[2017-02-16] MEDS ORDERED: AZITHROMYCIN 250 MG TAB PO STA (17:35)
[2017-02-16] MEDS ORDERED: AZIT250T PO (17:40)
[2017-02-16] MEDS ORDERED: PRED20TA PO (17:40)
[2017-02-16] MEDS ORDERED: ALBUTEROL HFA 8 GM INHALER INH ONE (17:45)
[2017-02-16 18:35] VITALS: BP 144/87; PULSE 100; O2SAT 94
[2017-02-16] MEDS ORDERED: DOCU-94 PO (20:58)
== END 2017-02-16 18:37 | disposition home or self-care (01) ==
LOC: C.EDB 15:20 → EDBD 15:20 → C.EDB 18:37
DX: J20.9 Acute bronchitis, unspecified (principal); I12.9 Hypertensive chronic kidney disease with stage 1 through stage 4 chronic kidney disease, or unspecified chronic kidney disease; N18.3 Chronic kidney disease, stage 3 (moderate); E78.5 Hyperlipidemia, unspecified; E03.9 Hypothyroidism, unspecified; M19.90 Unspecified osteoarthritis, unspecified site; M81.0 Age-related osteoporosis without current pathological fracture; F41.8 Other specified anxiety disorders; Z86.73 Personal history of transient ischemic attack (TIA), and cerebral infarction without residual deficits; Z96.649 Presence of unspecified artificial hip joint; Z79.899 Other long term (current) drug therapy; Z88.6 Allergy status to analgesic agent; Z80.9 Family history of malignant neoplasm, unspecified; Z83.3 Family history of diabetes mellitus; Z84.1 Family history of disorders of kidney and ureter; Z82.49 Family history of ischemic heart disease and other diseases of the circulatory system

== ENCOUNTER → 2017-03-11 | Outpatient (CLI) | payer OTHER ==
[~2017-03-11] MED LIST changes: +AZIT250T PO; +CALC-575 PO; -CALC8.5C PO; -CLOP1TAB15 PO; +DOCU-94 PO; -ENOX1INJ8 INJ; +FLNIN/ NAE; -FRS/40 PO; -LISI40TA PO; +LSN40 PO; +LSX20 PO; +LVNIS40 SC; +MELO7.5T5 PO; +NRV/10 PO; -NRV5 PO; -OMEP20CA9 PO; +OXYC-609 PO; -OXYC1TAB3 PO; +PANT40TA2 PO; +PLV75 PO; +SERT1TAB88 PO; -SERT25TA PO
--- NOTE | 2017-03-11 15:55 | DIAGNOSTIC IMAGING REPORT ---
CHEST 2 VIEWS ROUTINE CLINICAL HISTORY: Cough and wheezing. COMPARISON STUDY: Chest radiograph 11/16/[address] October 29, 2016. FINDINGS: There is no pneumothorax or pleural effusion. Mild left basilar opacity suggest atelectasis. There is no consolidation to suggest pneumonia. Mild cardiomegaly is unchanged. There is no evidence for pulmonary edema. IMPRESSION: No acute cardiopulmonary findings. No change in appearance of the chest. Electronically signed by: Erik Vera M.D. 03/11/2017 3:54 PM Dictated Date/Time: 03/11/2017 3:53 PM
== END | disposition home or self-care (01) ==
LOC: C.RAD 15:26
PROVIDERS: ATTEND Physician Assistant Medical
DX: R05 Cough (principal)

== ENCOUNTER 2017-06-28 12:31 | Emergency (ER) | payer OTHER ==
[~2017-06-28] VITALS: Ht 162.6 cm; Wt 70.0 kg
[2017-06-28 12:44] VITALS: TEMP 37; Ht 162.6 cm; Wt 70.0 kg
[2017-06-28] MEDS ORDERED: ALBUT/IPRATROP 3MG/0.5MG NEB 3 ML VIAL INH STA ×2 (12:58→14:01)
[2017-06-28] MEDS ORDERED: DOXYCYCLINE HYCLATE 100 MG CAP PO ONE (13:00)
--- NOTE | 2017-06-28 13:04 | EMERGENCY ROOM VISIT NOTE ---
History Report prepared by Queenie: Jaziel Gregg Under the Supervision of: Dr. Diana Treviño M.D. First contact with patient: 12:52 Chief Complaint: RESPIRATORY PROBLEMS Stated Complaint: COUGH, DIFFICULTY BREATHING, WHEEZING History of Present Illness The patient is an 81 year old female who presents to the Emergency Room with concerns over worsening respiratory difficulties that began 1 week ago. The family at bedside notes that the patient has been "wheezing" heavily for the past week. The family note that they took her to her primary care office yesterday, where she was prescribed Prednisone and Doxycycline. The patient then visited with her orthopedic physician today who appreciated her wheezing. He suggested that they call the PCP again to tell her that the wheezing had worsened. The primary office suggested that she come to the ED. The wheezing is worsened with exertion. She is receiving Lovenox injections. Source of History: patient, family Onset: 1 week Position: chest Quality: other (Wheezing) Timing: worsening Modifying Factors (Worsening): exertion Review of Systems See HPI for pertinent positives & negatives. A total of 10 systems reviewed and were otherwise negative. Past Medical & Surgical Medical Problems: (1) Adjustment reaction with anxiety and depression (2) CKD (chronic kidney disease) stage 3, GFR 30-59 ml/min (3) Dyslipidemia (4) History of CVA (cerebrovascular accident) (5) HTN (hypertension) (6) Hypothyroidism (7) Osteoarthritis (8) Osteoporosis (9) Renal lesion Surgical Problems: (1) History of hip surgery (2) No significant past surgical history Family History Cancer Diabetes mellitus FH: kidney disease Hypertension Social History Smoking Status: Never Smoker Drug Use: none Marital Status: Housing Status: lives with family Occupation Status: retired Current/Historical Medications Scheduled Amlodipine Besylate (Amlodipine Besylate), 10 MG PO QAM Atorvastatin (Lipitor), 10 MG PO QPM Calcium Carbonate-Cholecalcife (Calcium 500+D3 500-400 mg-Unit), 1 TAB PO BID Clopidogrel Bisulfate (Clopidogrel), 75 MG PO QAM Doxycycline Hyclate (Vibramycin), 100 MG PO BID Enoxaparin (Enoxaparin Sodium), 40 MG SC HS Furosemide (Furosemide), 20 MG PO QAM Levothyroxine Sodium (Levothyroxine Sodium), 25 MCG PO QAM Lisinopril (Lisinopril), 40 MG PO QAM Meloxicam (Mobic), 7.5 MG PO DAILY Metoprolol Tartrate (Lopressor) (Lopressor), 12.5 MG PO BID Pantoprazole (Pantoprazole Sodium), 40 MG PO QAM Prednisone (Prednisone), 10 MG PO UD Sertraline HCl (Sertraline HCl), 25 MG PO HS Scheduled PRN Docusate Sodium (Colace), 100 MG PO BID PRN for Constipation Fluticasone Propionate (Fluticasone Propionate), 2 SPRAYS SHOSHANA DAILY PRN for Nasal Congestion Polyethylene Glycol 3350 (Miralax), 17 GM PO DAILY PRN for Constipation Allergies Coded Allergies: Aspirin (Verified Allergy, Severe, ANAPHYLAXIS, SWELLING, 06/28/17) Physical Exam Vital Signs Date Time Temp Pulse Resp B/P (MAP) Pulse Ox O2 Delivery O2 Flow Rate FiO2 06/28/17 14:05 82 22 125/80 97 Room Air 06/28/17 12:59 85 06/28/17 12:44 37.0 88 22 156/65 97 Room Air Physical Exam Vital signs reviewed. General: chronically ill-appearing elderly female, in no significant distress. HEENT: No scleral icterus, PERRLA, neck supple. Atraumatic. Cardiovascular: Regular rate and rhythm, no extra sounds. Pulmonary: Wheezing throughout all lung wick. Normal work of breathing. Abdomen: Soft, nontender, nondistended, positive bowel sounds. Musculoskeletal: Splint on the left leg, no peripheral edema. Neurologic: Patient awake alert and oriented x 3 Skin: Warm, dry, no rash Medical Decision & Procedures ER Provider Diagnostic Interpretation: Radiology results as stated below per my review and radiologist interpretation: CHEST ONE VIEW PORTABLE HISTORY: 81 years-old Female SOB, wheeze acute shortness of breath with wheezing COMPARISON: Chest radiograph 03/11/2017 TECHNIQUE: Portable AP view of the chest FINDINGS: Cardiac silhouette is within normal limits. Atherosclerosis of the aorta. Mild interstitial coarsening of the upper lung zones appears unchanged. There is no pneumothorax, pleural effusion, lobar airspace consolidation or overt pulmonary edema. Mild left hemidiaphragmatic elevation. Subsegmental left basilar opacities suggest atelectasis or scarring. Degenerative changes of the spine with severe osteoarthritis about the shoulders. IMPRESSION: No acute process. The above report was generated using voice recognition software. It may contain grammatical, syntax or spelling errors. Electronically signed by: Jaime Chaparro M.D. 06/28/2017 2:03 PM Dictated Date/Time: 06/28/2017 2:02 PM Medications Administered Medications (Trade) Dose Ordered Sig/Ebony Route Start Time Stop Time Status Last Admin Dose Admin Albuterol/ Ipratropium (Duoneb) 3 ml NOW STAT INH 06/28/17 12:58 06/28/17 13:00 DC 06/28/17 13:11 3 ML Doxycycline Hyclate (Vibramycin Cap) 100 mg ONE ONCE PO 06/28/17 13:00 06/28/17 13:01 DC 06/28/17 13:11 100 MG Prednisone (PredniSONE TAB) 60 mg NOW STAT PO 06/28/17 12:58 06/28/17 13:00 DC 06/28/17 13:11 60 MG Miscellaneous Information (Nursing Verbal Med Order) 1 ea ONE ONCE N/A 06/28/17 14:00 06/28/17 14:01 DC 06/28/17 13:54 1 EA ED Course 1255: Past medical records reviewed. The patient was evaluated in room A12B. A complete history and physical examination was performed. 1258: Ordered Prednisone 60 mg PO, DuoNeb 3 mL INH, Doxycycline 100 mg PO. 1300: Ordered Doxycycline 100 mg PO. 1349: I updated the patient at this time. 1400: DuoNeb 3 mL INH. 1414: Upon reevaluation, the patient appeared to have improvement of her symptoms. I discussed findings with her. She verbalized agreement of the treatment plan. The patient was discharged home. Medical Decision Differential diagnosis: Etiologies such as infections, reactive airway disease, pneumonia, pneumothorax , COPD, CHF, cardiac ischemia, pulmonary embolism, musculoskeletal, gastrointestinal, as well as others were entertained. This patient was evaluated and appeared to be in no significant distress. The patient has some expiratory wheezing. Patient was given a DuoNeb treatment 2. Patient not taking any prednisone this morning was 60 mg p.o. as well as doxycycline 100 mg p.o. Chest x-ray was obtained and is negative. The patient seemed to be improving and was maintaining her oxygenation on room air throughout the stay. He was advised that she continue her albuterol 2 puffs every 4 hours as needed. She will also continue the prednisone taper and doxycycline as prescribed. Patient will follow up with her PCP this week for reevaluation if symptoms persist and return to the ED for worsening of symptoms or any medical concerns. Impression Primary Impression: Bronchitis, acute, with bronchospasm Scribe Attestation The scribe's documentation has been prepared under my direction and personally reviewed by me in its entirety. I confirm that the note above accurately reflects all work, treatment, procedures, and medical decision making performed by me. Departure Information Dispostion Home / Self-Care Referrals Cathleen Infante D.O. (PCP) Forms HOME CARE DOCUMENTATION FORM, IMPORTANT VISIT INFORMATION, WORK / SCHOOL INSTRUCTIONS Patient Instructions My [facility] Additional Instructions Diagnosis: Bronchitis with wheezing Continue nebulizers every 4 hours as needed for wheezing. Continue prednisone as prescribed you were given a dose today in the emergency department and resume tomorrow. Resume doxycycline 100 mg twice daily as prescribed. Continue Lovenox injections. Follow-up with your primary care physician this week for reevaluation. Return to the emergency department for worsening of symptoms or any medical concerns.
[2017-06-28] MEDS ORDERED: PRED10TA PO (13:40)
[2017-06-28] MEDS ORDERED: DOXY100C2 PO (13:40)
[2017-06-28] MEDS ORDERED: NURSING VERBAL MED ORDER ONE (14:00)
[2017-06-28 14:05] VITALS: BP 125/80; PULSE 82; O2SAT 97
--- NOTE | 2017-06-28 14:05 | DIAGNOSTIC IMAGING REPORT ---
CHEST ONE VIEW PORTABLE HISTORY: 81 years-old Female SOB, wheeze acute shortness of breath with wheezing COMPARISON: Chest radiograph 03/11/2017 TECHNIQUE: Portable AP view of the chest FINDINGS: Cardiac silhouette is within normal limits. Atherosclerosis of the aorta. Mild interstitial coarsening of the upper lung zones appears unchanged. There is no pneumothorax, pleural effusion, lobar airspace consolidation or overt pulmonary edema. Mild left hemidiaphragmatic elevation. Subsegmental left basilar opacities suggest atelectasis or scarring. Degenerative changes of the spine with severe osteoarthritis about the shoulders. IMPRESSION: No acute process. The above report was generated using voice recognition software. It may contain grammatical, syntax or spelling errors. Electronically signed by: Jaime Chaparro M.D. 06/28/2017 2:03 PM Dictated Date/Time: 06/28/2017 2:02 PM
== END 2017-06-28 14:23 | disposition home or self-care (01) ==
LOC: C.EDB 12:32 → C.EDA 14:23
DX: J20.9 Acute bronchitis, unspecified (principal); R06.2 Wheezing; I12.9 Hypertensive chronic kidney disease with stage 1 through stage 4 chronic kidney disease, or unspecified chronic kidney disease; N18.3 Chronic kidney disease, stage 3 (moderate); E03.9 Hypothyroidism, unspecified; M19.90 Unspecified osteoarthritis, unspecified site; Z86.73 Personal history of transient ischemic attack (TIA), and cerebral infarction without residual deficits; Z79.899 Other long term (current) drug therapy; Z83.3 Family history of diabetes mellitus; Z84.1 Family history of disorders of kidney and ureter

== ENCOUNTER 2017-09-15 22:08 | Emergency (ER) | payer OTHER ==
[~2017-09-15 22:08] MED LIST changes: -AZIT250T PO; +DOXY100C2 PO; +LISI40TA3 PO; -LSN40 PO; -OXYC-609 PO; +PRED10TA PO
[2017-09-15 22:12] VITALS: TEMP 37.1
[2017-09-15] MEDS ORDERED: SODIUM CHLORIDE 0.9% 1000ML 1,000 ML IV STA (22:27)
[2017-09-15 22:41] VITALS: O2SAT 94; Ht 162.6 cm
[2017-09-15] MEDS ORDERED: FRS/40 PO (23:03)
[2017-09-15] MEDS ORDERED: LSX40 PO (23:03)
--- NOTE | 2017-09-15 23:26 | DIAGNOSTIC IMAGING REPORT ---
SINGLE VIEW CHEST CLINICAL HISTORY: Generalized weakness. FINDINGS: An AP, portable, upright chest radiograph is compared to study dated 06/28/2017. The examination is degraded by portable technique and patient rotation. The cardiomediastinal silhouette is unremarkable noting atherosclerotic calcification of the thoracic aorta. Chronic interstitial thickening is unchanged. There is mild elevation of the left hemidiaphragm with associated atelectasis. The lungs and pleural spaces are otherwise clear. No pneumothorax is seen. The skeletal structures are osteopenic. The bony thorax is grossly intact. IMPRESSION: No acute cardiopulmonary abnormality. Electronically signed by: Steve Laird M.D. 09/15/2017 11:25 PM Dictated Date/Time: 09/15/2017 11:24 PM
[2017-09-15 23:38] LABS: BASO % 0.2 %; BASO ABS # 0.03 K/uL (0-0.2); EOS % 1.1 %; EOS ABS # 0.16 K/uL (0-0.5); HEMATOCRIT 38.4 % (37-47); HEMOGLOBIN 12.3 g/dL (12.0-16.0); IG# 0.03 K/uL (0.00-0.02); LYMPH % 9.5 %; LYMPH ABS # 1.33 K/uL (1.2-3.4); MEAN CELL VOLUME 85.5 fL (80-100); MEAN CORPUSCULAR HEMOGLOBIN 27.4 pg (25-34); MEAN PLATELET VOLUME 10.3 fL (7.4-10.4); MONO % 6.2 %; MONO ABS # 0.86 K/uL (0.11-0.59); NEUT % 82.8 %; NEUT ABS # 11.53 K/uL (1.4-6.5); PLATELET COUNT 298 K/uL (130-400); RED CELL DISTRIBUTION WIDTH CV 14.7 % (11.5-14.5); RED CELL DISTRIBUTION WIDTH SD 45.9 fL (36.4-46.3); WHITE BLOOD COUNT 13.94 K/uL (4.8-10.8)
[2017-09-15 23:51] LABS: INR 1.1 (0.9-1.1); PTT PATIENT 23.7 SECONDS (21.0-31.0)
[2017-09-16 00:16] LABS: ALBUMIN 3.5 gm/dl (3.4-5.0); ALKALINE PHOSPHATASE 107 U/L (45-117); ALT/SGPT 15 U/L (12-78); AST/SGOT 14 U/L (15-37); BLOOD UREA NITROGEN 21 mg/dl (7-18); CARBON DIOXIDE 29 mmol/L (21-32); GLUCOSE 116 mg/dl (70-99); LIPASE 134 U/L (73-393); POTASSIUM 4.1 mmol/L (3.5-5.1); SODIUM 140 mmol/L (136-145); TOTAL PROTEIN 7.6 gm/dl (6.4-8.2)
--- NOTE | 2017-09-16 01:54 | EMERGENCY ROOM VISIT NOTE ---
History Report prepared by Queenie: Mazin Morocho Under the Supervision of: Dr. Wilbert Michelle M.D. First contact with patient: 22:27 Chief Complaint: EDEMA TO EXTREMITY Stated Complaint: EDEMA AND REDNESS IN LEG, SOB,VOMITING History of Present Illness The patient is a 81 year old female who presents to the Emergency Room with complaints of constant swelling of the legs beginning one month ago and resolved vomiting of clear liquid that occurred last night. The patient's daughter reports that the patient crushed her upper left femur on September 30 of last year. She notes that the patient is currently 50 percent weight bearing. She reports that the patient takes Lasix and recently had her dose increased to 80 mg on Tuesday, Tuesday, and Tuesday, and 40 mg every other day of the week. The patient's daughter also notes that she has noticed wheezing in the patient. She notes that the patient did not vomit today, but barely ate. She states that patient's PCP is from [facility]. She reports that the patient is on Lovenox injections because she is not mobile. She states that the patient one time had a small clot in an IV in her arm, but denies larger clots. She reports that the patient does not eat a lot of salt. The patient states that her legs currently feel fine. She denies problems with swallowing. Pt denies LOC, headache, fevers, chills, diaphoresis, visual changes, neck pain , chest pain, abdominal pain, back pain, melena, hematochezia, urinary symptoms , numbness, lymphadenopathy, rash, or other complaints. Source of History: patient, family Onset: one month ago (swelling), last night (vomiting) Position: leg Quality: other (leg swelling, vomiting clear liquid) Timing: constant (swelling), resolved (vomiting) Note: wheezing Review of Systems See HPI for pertinent positives and negatives. A total of ten systems were reviewed and were otherwise negative. Past Medical & Surgical Medical Problems: (1) Adjustment reaction with anxiety and depression (2) CKD (chronic kidney disease) stage 3, GFR 30-59 ml/min (3) Dyslipidemia (4) History of CVA (cerebrovascular accident) (5) HTN (hypertension) (6) Hypothyroidism (7) Osteoarthritis (8) Osteoporosis (9) Renal lesion Surgical Problems: (1) History of hip surgery (2) No significant past surgical history Family History Cancer Diabetes mellitus FH: kidney disease Hypertension Social History Smoking Status: Never Smoker Drug Use: none Marital Status: Housing Status: lives with family Occupation Status: retired Current/Historical Medications Scheduled Amlodipine Besylate (Amlodipine Besylate), 10 MG PO QAM Atorvastatin (Lipitor), 10 MG PO QPM Calcium Carbonate-Cholecalcife (Calcium 500+D3 500-400 mg-Unit), 1 TAB PO BID Cephalexin Monohydrate (Keflex), 500 MG PO QID Clopidogrel Bisulfate (Clopidogrel), 75 MG PO QAM Enoxaparin (Enoxaparin Sodium), 40 MG SC HS Furosemide (Furosemide), 40 MG PO 4XWK Furosemide (Lasix), 80 MG PO 3XWK Levothyroxine Sodium (Levothyroxine Sodium), 25 MCG PO QAM Lisinopril (Lisinopril), 40 MG PO QAM Meloxicam (Mobic), 7.5 MG PO HS Metoprolol Tartrate (Lopressor) (Lopressor), 12.5 MG PO BID Pantoprazole (Pantoprazole Sodium), 40 MG PO QAM Sertraline HCl (Sertraline HCl), 25 MG PO HS Scheduled PRN Docusate Sodium (Colace), 100 MG PO BID PRN for Constipation Fluticasone Propionate (Fluticasone Propionate), 2 SPRAYS SHOSHANA DAILY PRN for Nasal Congestion Polyethylene Glycol 3350 (Miralax), 17 GM PO DAILY PRN for Constipation Allergies Coded Allergies: Aspirin (Verified Allergy, Severe, ANAPHYLAXIS, SWELLING, 09/15/17) Physical Exam Vital Signs Date Time Temp Pulse Resp B/P (MAP) Pulse Ox O2 Delivery O2 Flow Rate FiO2 09/16/17 01:46 78 16 155/60 95 Room Air 09/16/17 00:14 77 16 174/57 95 Room Air 09/15/17 23:22 78 09/15/17 22:41 94 Room Air 09/15/17 22:12 37.1 79 20 150/73 93 Room Air Physical Exam GENERAL: Awake, alert, well-appearing, in no distress HENT: Normocephalic, atraumatic. Oropharynx unremarkable. EYES: Normal conjunctiva. Sclera non-icteric. NECK: Supple. No nuchal rigidity. FROM. No masses. RESPIRATORY: Clear to auscultation. No wheezes. No rales. Normal respiratory effort. CARDIAC: Normal rate. Normal rhythm. No murmurs. No rubs. Extremities warm and well perfused. Pulses equal. No JVD. GI: Soft, non-distended. No tenderness to palpation. No rebound or guarding. No masses. RECTAL: Deferred. MUSCULOSKELETAL: Atraumatic. Chest examination reveals no tenderness. The back is symmetrical on inspection without obvious abnormality. There is no CVA tenderness to palpation. No joint edema. LOWER EXTREMITIES: The right leg is slightly larger than the left with 2+ edema on the right and 1+ edema on the left. Legs are nontender bilaterally. Negative Homans' sign. No discoloration. NEURO: Normal sensorium. No sensory or motor deficits noted. SKIN: No rash or jaundice noted. Medical Decision & Procedures ER Provider Diagnostic Interpretation: Radiology results as stated below per my review and radiologist interpretation: SINGLE VIEW CHEST CLINICAL HISTORY: Generalized weakness. FINDINGS: An AP, portable, upright chest radiograph is compared to study dated 06/28/2017. The examination is degraded by portable technique and patient rotation. The cardiomediastinal silhouette is unremarkable noting atherosclerotic calcification of the thoracic aorta. Chronic interstitial thickening is unchanged. There is mild elevation of the left hemidiaphragm with associated atelectasis. The lungs and pleural spaces are otherwise clear. No pneumothorax is seen. The skeletal structures are osteopenic. The bony thorax is grossly intact. IMPRESSION: No acute cardiopulmonary abnormality. Electronically signed by: Steve Laird M.D. 09/15/2017 11:25 PM Dictated Date/Time: 09/15/2017 11:24 PM ULTRASOUND BILATERAL LOWER EXTREMITIES: Ultrasound imaging of bilateral lower extremities is negative for DVT. Laboratory Results 09/15/17 23:20 Red Blood Count 4.49, Mean Corpuscular Volume 85.5, Mean Corpuscular Hemoglobin 27.4, Mean Corpuscular Hemoglobin Concent 32.0, Mean Platelet Volume 10.3, Neutrophils (%) (Auto) 82.8, Lymphocytes (%) (Auto) 9.5, Monocytes (%) (Auto) 6.2, Eosinophils (%) (Auto) 1.1, Basophils (%) (Auto) 0.2, Neutrophils # (Auto) 11.53, Lymphocytes # (Auto) 1.33, Monocytes # (Auto) 0.86, Eosinophils # (Auto) 0.16, Basophils # (Auto) 0.03 09/15/17 23:20 Test 09/15/17 23:20 09/16/17 00:05 White Blood Count 13.94 K/uL (4.8-10.8) Red Blood Count 4.49 M/uL (4.2-5.4) Hemoglobin 12.3 g/dL (12.0-16.0) Hematocrit 38.4 % (37-47) Mean Corpuscular Volume 85.5 fL (80-100) Mean Corpuscular Hemoglobin 27.4 pg (25-34) Mean Corpuscular Hemoglobin Concent 32.0 g/dl (32-36) Platelet Count 298 K/uL (130-400) Mean Platelet Volume 10.3 fL (7.4-10.4) Neutrophils (%) (Auto) 82.8 % Lymphocytes (%) (Auto) 9.5 % Monocytes (%) (Auto) 6.2 % Eosinophils (%) (Auto) 1.1 % Basophils (%) (Auto) 0.2 % Neutrophils # (Auto) 11.53 K/uL (1.4-6.5) Lymphocytes # (Auto) 1.33 K/uL (1.2-3.4) Monocytes # (Auto) 0.86 K/uL (0.11-0.59) Eosinophils # (Auto) 0.16 K/uL (0-0.5) Basophils # (Auto) 0.03 K/uL (0-0.2) RDW Standard Deviation 45.9 fL (36.4-46.3) RDW Coefficient of Variation 14.7 % (11.5-14.5) Immature Granulocyte % (Auto) 0.2 % Immature Granulocyte # (Auto) 0.03 K/uL (0.00-0.02) Prothrombin Time 11.8 SECONDS (9.0-12.0) Prothromb Time International Ratio 1.1 (0.9-1.1) Activated Partial Thromboplast Time 23.7 SECONDS (21.0-31.0) Partial Thromboplastin Ratio 0.9 Anion Gap 7.0 mmol/L (3-11) Estimated GFR () 48.4 Estimated GFR (Non- 41.8 BUN/Creatinine Ratio 17.7 (10-20) Calcium Level 8.0 mg/dl (8.5-10.1) Magnesium Level 1.7 mg/dl (1.8-2.4) Total Bilirubin 0.5 mg/dl (0.2-1) Direct Bilirubin 0.1 mg/dl (0-0.2) Aspartate Amino Transf (AST/SGOT) 14 U/L (15-37) Alanine Aminotransferase (ALT/SGPT) 15 U/L (12-78) Alkaline Phosphatase 107 U/L (45-117) Troponin I < 0.015 ng/ml (0-0.045) Total Protein 7.6 gm/dl (6.4-8.2) Albumin 3.5 gm/dl (3.4-5.0) Lipase 134 U/L (73-393) Thyroid Stimulating Hormone (TSH) 3.200 uIu/ml (0.300-4.500) Urine Color YELLOW Urine Appearance CLEAR (CLEAR) Urine pH 6.0 (4.5-7.5) Urine Specific [place] 1.014 (1.000-1.030) Urine Protein NEG (NEG) Urine Glucose (UA) NEG (NEG) Urine Ketones NEG (NEG) Urine Occult Blood TRACE (NEG) Urine Nitrite NEG (NEG) Urine Bilirubin NEG (NEG) Urine Urobilinogen NEG (NEG) Urine Leukocyte Esterase MODERATE (NEG) Urine WBC (Auto) 5-10 /hpf (0-5) Urine RBC (Auto) 0-4 /hpf (0-4) Urine Hyaline Casts (Auto) 1-5 /lpf (0-5) Urine Epithelial Cells (Auto) >30 /lpf (0-5) Urine Bacteria (Auto) NEG (NEG) Laboratory results reviewed by me Medications Administered Medications (Trade) Dose Ordered Sig/Ebony Route Start Time Stop Time Status Last Admin Dose Admin Sodium Chloride 1,000 ml @ 125 mls/hr Q8H STAT IV 09/15/17 22:27 09/16/17 06:26 09/15/17 23:29 125 MLS/HR ECG Per My Interpretation Indication: vomiting Rate (beats per minute): 74 Rhythm: normal sinus Findings: other (Incomplete RBBB. No ST elevation or depression. No PACs or PVCs. Prolonged QT interval is noted.) ED Course 2226: Ordered Sodium Chloride 1000 ml @ 125 mls/hr IV 2302: The patient was evaluated in room B12B. A complete history and physical exam was performed. 0052: I updated with the patient. She states that she currently feels well. 0155: Reassessed. Waiting on ultrasound. Patient feels well. She desires discharge. 0220: Patient was reassessed. She is doing well. Ordered Keflex home pack and CINDY stockings. Ultrasound imaging negative. Return instructions outlined. Patient discharged in stable condition. Daughter feels comfortable. Medical Decision Prior records/ancillary studies reviewed and summarized above. Nursing notes reviewed and agree them. Additional history obtained from the patient's daughter. The patient's history was concerning for swelling of the legs, vomiting, diuretic use, hallucinations. Differential diagnosis: Etiologies such as metabolic, infection, hypo/hyperglycemia, electrolyte abnormalities, cardiac sources, intracerebral event, toxicologic, neurologic, as well as others were entertained. Physical examination: As above. Benign abdomen. No signs of cellulitis of the legs. ER treatment provided: IV Lock Normal saline On reassessment the patient felt better. Diagnostics interpretation by me: ECG: No acute ischemia. The labs revealed a slight leukocytosis on CBC. Chemistry panel was unremarkable. Cardiac markers negative. LFTs negative. Imaging studies: Ultrasounds and x-rays as above. The patient is doing very well. She has some lower extremity edema. Ultrasound imaging performed. Her blood work revealed a slight leukocytosis. She had a benign abdomen. Chest x-ray was negative. She had no pulmonary symptoms. The patient had no headache. Her urinalysis had white cells as well as a moderate amount of epithelial cells. Her leukocytosis and symptoms did raise some concern about possible UTI. Keflex home pack given. CINDY stockings were given for the lower extremity edema. Ultrasound imaging was negative. The patient will follow-up in the office. Prescription sent to her pharmacy for additional Keflex. Daughter feels comfortable. The patient is happy as she desires to be discharged and does not want to be admitted. By the evaluation outlined above other emergent etiologies such as those listed in the differential, as well as others, were deemed relatively unlikely. The patient was educated about the findings as listed above. All questions were answered and the patient was pleased with the treatment. Return instructions were outlined and the patient was discharged in stable condition. The patient was referred to her PCP for follow-up for a recheck of the current condition. Medication Reconcilliation Current Medication List: was personally reviewed by me Blood Pressure Screening Patient's blood pressure: Elevated blood pressure Blood pressure disposition: Referred to PCP Impression Primary Impression: Lower extremity edema Additional Impression: UTI (urinary tract infection) Scribe Attestation The scribe's documentation has been prepared under my direction and personally reviewed by me in its entirety. I confirm that the note above accurately reflects all work, treatment, procedures, and medical decision making performed by me. Departure Information Dispostion Home / Self-Care Prescriptions Cephalexin Monohydrate (Keflex) 500 Mg Cap 500 MG PO QID, #28 CAP Prov: Wilbert Michelle MD 09/16/17 Referrals Cathleen Infante D.O. (PCP) Patient Instructions My [facility] Additional Instructions Cephalexin(Keflex) 500mg: Take one pill four times daily for 7 days for your infection. All antibiotics can cause diarrhea. If this occurs and you feel worse or it does not resolve in 1-2 days follow up with your doctor or return to the Emergency Department as this could be signs of serious underlying problems. Any medication can cause an allergic reaction, stop the pills immediately and return to the ER for rash, hives, breathing difficulties, or swelling. Tylenol: Take 1000 mg every 6 hours as needed for pain. Do not take more than 3000 mg in a 24 hour period. Continue current medications Low-salt diet. Use the compression stockings to help with the swelling. Elevate your legs. Follow-up with your primary physician in 1-2 days for recheck. Return to the ER for headache, passing out, difficulty breathing, fevers, dental pain, worsening swelling,, worsening of your condition, or as needed. Problem Qualifiers
[2017-09-16] MEDS ORDERED: CEPHALEXIN 500MG HOME PACK 1 EA BTL PO ONE (02:15)
[2017-09-16] MEDS ORDERED: CEPH500C PO (02:16)
[2017-09-16 02:35] VITALS: BP 155/67; PULSE 74; O2SAT 96
--- NOTE | 2017-09-16 06:35 | DIAGNOSTIC IMAGING REPORT ---
VENOUS DOPPLER LWR EXT BILA HISTORY: Pain. Edema. swelling, eval for DVT COMPARISON STUDY: None. FINDINGS: There is normal compressibility, flow, and augmentation within the bilateral lower extremity deep venous systems. IMPRESSION: No DVT within the right or left lower extremity. Somewhat compromised exam as the patient did not tolerate adequate venous scanning access. The above report was generated using voice recognition software. It may contain grammatical, syntax or spelling errors. Electronically signed by: Jassi Conn M.D. 09/16/2017 6:34 AM Dictated Date/Time: 09/16/2017 6:33 AM
== END 2017-09-16 02:55 | disposition home or self-care (01) ==
LOC: C.EDB 22:09
DX: R60.0 Localized edema (principal); N39.0 Urinary tract infection, site not specified; N18.3 Chronic kidney disease, stage 3 (moderate); E78.5 Hyperlipidemia, unspecified; I12.9 Hypertensive chronic kidney disease with stage 1 through stage 4 chronic kidney disease, or unspecified chronic kidney disease; E03.9 Hypothyroidism, unspecified; M19.90 Unspecified osteoarthritis, unspecified site; M81.0 Age-related osteoporosis without current pathological fracture; Z79.899 Other long term (current) drug therapy; Z88.8 Allergy status to other drugs, medicaments and biological substances

== ENCOUNTER 2018-05-09 22:07 | Inpatient (IN) ==
--- NOTE | 2018-05-09 22:57 | CT Scan Report ---
HEAD CT NONCONTRAST CT DOSE: 537.48 mGy.cm HISTORY: Left arm weakness. Stroke evaluation TECHNIQUE: Multiaxial CT images of the head were performed without the use of intravenous contrast. A utomated exposure control was utilized for this study. A dose lowering technique was utilized adheri ng to the principles of ALARA. Comparison: None. Findings: The paranasal sinuses and mastoid air cells are clear. The calvarium and skull base are int act. There is no mass, hematoma, midline shift, acute infarct. White matter hypodensity is nonspecifi c but suggestive of microvascular ischemic change. The ventricles and sulci demonstrate mild age-rela parth involutional changes. 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 This remains unchanged. Impression: No significant change compared to the prior study. No acute intracranial abnormality. Old right MCA t erritory infarct is again noted. Electronically signed by: Luis Nelson M.D. 05/09/2018 10:55 PM
--- NOTE | 2018-05-09 23:02 | XRay Report ---
XR chest 1V portable HISTORY: Fever. COMPARISON: Chest 03/05/2018. FINDINGS: No focal lung consolidations to suggest pneumonia. No evidence for pulmonary edema. Small l eft basilar linear density favors atelectasis or scarring. This remains unchanged. Cardiac silhouette remains mildly enlarged. No pleural effusions. No pneumothorax. IMPRESSION: No significant change compared to the prior study. No acute process. Electronically signed by: Luis Nelson M.D. 05/09/2018 11:00 PM
[2018-05-09 23:08] LABS: Basophils # (auto) 0.03 K/uL (0-0.2); Basophils % (auto) 0.2 %; Eosinophils # (auto) 0.24 K/uL (0-0.5); Eosinophils % (auto) 1.7 %; Hematocrit (blood only) 34.1 % (37-47); Immature Granulocytes # (auto) 0.07 K/uL (0.00-0.02); Immature Granulocytes % (auto) 0.5 %; Lymphocytes # (auto) 0.99 K/uL (1.2-3.4); Lymphocytes % (auto) 6.8 %; Mean Corpuscular Hgb Conc 32.3 g/dL (32-36); Mean Corpuscular Volume 83.4 fL (80-100); Mean Platelet Volume 9.4 fL (7.4-10.4); Monocytes # (auto) 1.15 K/uL (0.11-0.59); Monocytes % (auto) 7.9 %; Neutrophils # (auto) 12.03 K/uL (1.4-6.5); Neutrophils % (auto) 82.9 %; Platelet Count 294 K/uL (130-400); RDW Coefficient of Variation 15.6 % (11.5-14.5); RDW Standard Deviation 47.8 fL (36.4-46.3); Red Blood Count 4.09 M/uL (4.2-5.4); White Blood Count 14.51 K/uL (4.8-10.8)
[2018-05-09 23:21] LABS: INR 1.2 (0.9-1.1); Partial Thromboplastin Ratio 0.9; Partial Thromboplastin Time 24.8 Seconds (21.0-31.0); Prothrombin Time 12.6 Seconds (9.0-12.0)
[2018-05-09 23:40] LABS: Albumin Level 2.9 gm/dl (3.4-5.0); BUN Creatinine Ratio 14.3 (10-20); Calcium 8.3 mg/dl (8.5-10.1); Creatinine Clr Calc Pharmacy 29.5 ml/min; Est GFR (African American) 40.6; Magnesium 1.8 mg/dl (1.8-2.4); Potassium 4.1 mmol/L (3.5-5.1)
[2018-05-09 23:45] LABS: Albumin Globulin Ratio 0.7 (0.9-2); Bilirubin,Total 0.3 mg/dl (0.2-1); Globulin 4.3 gm/dl (2.5-4.0); Total Protein 7.2 gm/dl (6.4-8.2); Troponin I 0.027 ng/ml (0-0.045)
[2018-05-10 00:06] LABS: Appearance Urine Clear (Clear); Bilirubin Urine Negative (Negative); Blood Urine Trace (Negative); Color Urine Yellow; Epithelial Cell Urine Auto >30 /lpf (0-5); Glucose Urine UA Negative (Negative); Ketones Urine Negative (Negative); Leukocyte Esterase Urine 1+ (Negative); Nitrite Urine Negative (Negative); Protein Urine Negative (Negative); Specific Gravity Urine 1.014 (1.000-1.030); Urobilinogen Urine Negative (Negative); pH Urine 5.5 (4.5-7.5)
[2018-05-10 00:28] LABS: Calcium Oxalate Crystals Urine Present (None Prsent)
[2018-05-10 00:29] LABS: RBC Urine Automated 0-4 /hpf (0-4)
[2018-05-10 00:30] LABS: Bacteria Urine Automated 2+ (Negative)
--- NOTE | 2018-05-10 02:18 | History & Physical Report ---
Date of Service May 10, 2018 Assessment & Plan (1) Stroke-like symptoms: Patient presented with confusion and weakness of left upper extremity. Head CT demonstrates old right MCA infarct, small vessel ischemic changes, no acute findings. TPA not indicated because of duration of symptoms and improving neuro status. Passed dysphagia screen in ED. Allergic to aspirin. Continue antiplatelet therapy with clopidogrel. Check lipid profile. Continue atorvastatin. Allow permissive hypertension until acute stroke ruled out. Check MRI of brain, carotid duplex, echocardiogram. Monitor for arrhythmias. Consult PT, OT, SYSTEMS COORDINATOR, Neurology. (2) Fever: Low-grade fever at home with occasional cough and loose stools. White count 14,510. Does not meet criteria for sepsis and does not appear to be septic clinically. Nasopharyngeal swab for influenza A/B per antigen testing was negative. Will retest for influenza using PCR assay for higher sensitivity. No infiltrates on chest x-ray. Experiencing diarrhea-check stools for C. difficile and routine enteric p athogens. Urinalysis shows WBCs, bacteria, and yeast, but many epithelial cells. May or may not have urinary tract infection. Check urine culture. No antibiotic therapy unless infection confirmed or clinical status worsens. (3) HTN (hypertension): Best to allow permissive hypertension in setting of possible acute ischemic stroke. Continue metoprolol. Hold lisinopril. (4) Dyslipidemia: Check lipid profile. Continue atorvastatin. (5) CKD (chronic kidney disease) stage 3, GFR 30-59 ml/min: Chronic kidney disease stage III with baseline creatinine around 1.1. This evening, BUN 20 and creatinine 1.38. May be dehydrated secondary to recent fever and diarrhea. Hold furosemide. IV LR x 1 L. Follow. (6) Hypothyroidism: Continue levothyroxine. (7) DVT prophylaxis: Moderate risk for VTE. SQ heparin. Ambulate. (8) Discharge planning issues: Anticipated discharge to home. Family Medicine follow-up with Dr. Infante. History of Present Illness Chief Complaint: confusion, weakness left arm Primary Care Provider: Cathleen Infante 82-year-old female followed by Dr. Infante. History of cerebrovascular disease, hypertension, and other problems noted below. She lives at home with the assistance of her family. Ambulatory with a walker. She has had a low-grade fever for the past few days. Occasional nonproductive cough. Has had several loose stools. No urinary symptoms. This evening her family noted that she seemed to be confused and hallucinating around 1700. Later she developed weakness of her left upper extremity. She was brought to the ED for evaluation. By the time she arrived, left upper extremity weakness had improved significantly. Head CT showed an old right MCA stroke, periventricular small vessel disease, no acute events. Telestroke consultation was obtained with [facility]. TPA was not recommended because of duration of symptoms and improvement of deficits. Allergies Allergy/AdvReac Type Severity Reaction Status Date / Time aspirin Allergy Severe ANAPHYLAXIS, Verified 05/09/18 23:07 SWELLING Home Medications Home Medications Medication Instructions Recorded Confirmed Type amlodipine 10 mg PO QAM 03/05/18 05/09/18 History atorvastatin 10 mg PO QPM 03/05/18 05/09/18 History calcium carbonate-vitamin D3 1 tab PO TIDM 03/05/18 05/09/18 History clopidogrel 75 mg PO QAM 03/05/18 05/09/18 History docusate sodium [Colace] 100 mg PO BID PRN 03/05/18 05/09/18 History furosemide 20 mg PO BID 03/05/18 05/09/18 History levothyroxine 25 mg PO QAM 03/05/18 05/09/18 History lisinopril 40 mg PO QAM 03/05/18 05/09/18 History metoprolol tartrate 12.5 mg PO BID 03/05/18 05/09/18 History pantoprazole 40 mg PO QAM 03/05/18 05/09/18 History sertraline 25 mg PO HS 03/05/18 05/09/18 History albuterol sulfate [ProAir HFA] 2 puff INHALATION Q4H PRN 05/09/18 05/09/18 History fluticasone propionate 2 spry INTRANASAL DAILY PRN 05/09/18 05/09/18 History loratadine 10 mg PO DAILY PRN 05/09/18 05/09/18 History nystatin 1 applic TOPICAL BID PRN 05/09/18 05/09/18 History polymyxin B sulf-trimethoprim 1 drp OPL UD 05/09/18 05/09/18 History Past Med/Surg History Medical History Cerebrovascular disease (Chronic) Hypothyroidism (Chronic) CKD (chronic kidney disease) stage 3, GFR 30-59 ml/min (Chronic) Dyslipidemia (Chronic) HTN (hypertension) (Chronic) 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) Osteoporosis (Chronic) Osteoarthritis (Chronic) Anemia (Chronic) Renal lesion (Chronic) Social History Feels Safe at Home: Yes Smoking Status: Never smoker Review of Systems Constitutional: + fever; no weight loss Eyes: no diplopia and no worsening vision Ear, Nose, Mouth, Throat: no nasal congestion, no sinus pain/pressure and no sore throat Respiratory: + cough (mild) and + wheezing; no dyspnea Cardiovascular: + palpitations and + edema; no chest pain Gastrointestinal: + diarrhea/loose stools; no nausea, no vomiting, no constipation, no blood in stools and no melena Genitourinary (Female): no dysuria and no hematuria Musculoskeletal: + joint pain (left leg); no myalgia Integumentary: no rash and no new lesions Neurologic: as per Subjective / HPI Endocrine: no polydipsia and no polyuria Hematologic / Lymphatic: + easy bruising; no easy bleeding and no lymphadenopathy Physical Exam Vital Signs (Past 24 Hours): Last Vital Signs Temp 37.1 C 05/09/18 21:55 Pulse 78 05/10/18 02:16 Resp 20 05/10/18 02:16 BP 175/61 H 05/10/18 02:16 Pulse Ox 95 05/10/18 02:16 Constitutional: WD/WN, vitals as above no acute distress Eyes: PERRL, conjunctivae normal, anicteric sclerae ENMT: external ear and nose normal, oropharynx normal Ears: + hearing impairment Mouth: + dentures Neck: trachea midline, no thyromegaly Respiratory: no respiratory distress Auscultation: + wheezes (mild, d iffuse) Cardiovascular: Rate/Rhythm: regular rate Heart Sounds: no gallop, no murmur and no cardiac rub Vessels: normal peripheral pulses; no JVD Extremities: normal capillary refill and + edema (trace pretibial); no calf tenderness Gastrointestinal (Abdomen): normal bowel sounds, soft, nontender, no hepatosplenomegaly Musculoskeletal: Head/Neck/Chest: neck supple Extremities: + abnormal strength (mild weakness LUE), no cyanosis and no clubbing Skin: no rashes, warm and dry + nail abnormality (toenails thickened, elongated); no erythema and no pallor Neurologic: PERRL, EOMI no facial palsy no dysarthria or aphasia mild LUE weakness patellar DTR's 1/2 bilat plantar reflexes equivocal bilat Psychiatric: Orientation: alert, oriented to person and oriented to place; + not oriented to time Affect: euthymic affect Lymphatic: no cervical lymphadenopathy Results & Data Laboratory Results Laboratory Results - last 24 hr 05/09/18 05/09/18 05/09/18 22:36 22:42 22:58 WBC 14.51 H RBC 4.09 L Hgb 11.0 L Hct 34.1 L MCV 83.4 MCH 26.9 MCHC 32.3 RDW Std Deviation 47.8 H RDW Coeff of Cain 15.6 H Plt Count 294 MPV 9.4 Immature Gran % (Auto) 0.5 Neut % (Auto) 82.9 Lymph % (Auto) 6.8 [place] % (Auto) 7.9 Eos % (Auto) 1.7 Baso % (Auto) 0.2 Immature Gran # (Auto) 0.07 H Neut # (Auto) 12.03 H Lymph # (Auto) 0.99 L [place] # (Auto) 1.15 H Eos # (Auto) 0.24 Baso # (Auto) 0.03 PT INR APTT PTT Ratio Sodium Potassium Chloride Carbon Dioxide Anion Gap BUN Creatinine Est Cr Clr Drug Dosing Est GFR ( Amer) Est GFR (Non-Af Amer) BUN/Creatinine Ratio Glucose POC Glucose 115 H Lactate Calcium Magnesium Total Bilirubin AST ALT Alkaline Phosphatase Troponin I Total Protein Albumin Globulin Albumin/Globulin Ratio Urine Color Urine Appearance Urine pH Ur Specific [place] Urine Protein Urine Glucose (UA) Urine Ketones Urine Blood Urine Nitrite Urine Bilirubin Urine Urobilinogen Ur Leukocyte Esterase Urine WBC (Auto) Urine RBC (Auto) U Hyaline Cast (Auto) U Epithel Cells (Auto) Urine Bacteria (Auto) Calcium Oxalate Crystal Urine Yeast Influenza Type A Ag Neg for Influ A Influenza Type B Ag Neg for Influ B Blood Type Antibody Screen 05/09/18 05/09/18 05/09/18 22:58 22:58 22:58 WBC RBC Hgb Hct MCV MCH MCHC RDW Std Deviation RDW Coeff of [place] Plt Count MPV Immature Gran % (Auto) Neut % (Auto) Lymph % (Auto) [place] % (Auto) Eos % (Auto) Baso % (Auto) Immature Gran # (Auto) Neut # (Auto) Lymph # (Auto) [place] # (Auto) Eos # (Auto) Baso # (Auto) PT 12.6 H INR 1.2 H APTT 24.8 PTT Ratio 0.9 Sodium 139 Potassium 4.1 Chloride 103 Carbon Dioxide 32 Anion Gap 5.0 BUN 20 H Creatinine 1.38 H Est Cr Clr Drug Dosing 29.5 Est GFR ( Amer) 40.6 Est GFR (Non-Af Amer) 35.0 BUN/Creatinine Ratio 14.3 Glucose 136 H POC Glucose Lactate 2.3 H* Calcium 8.3 L Magnesium 1.8 Total Bilirubin 0.3 AST 11 L ALT 13 Alkaline Phosphatase 96 Troponin I 0.027 Total Protein 7.2 Albumin 2.9 L Globulin 4.3 H Albumin/Globulin Ratio 0.7 L Urine Color Urine Appearance Urine pH Ur Specific [place] Urine Protein Urine Glucose (UA) Urine Ketones Urine Blood Urine Nitrite Urine Bilirubin Urine Urobilinogen Ur Leukocyte Esterase Urine WBC (Auto) Urine RBC (Auto) U Hyaline Cast (Auto) U Epithel Cells (Auto) Urine Bacteria (Auto) Calcium Oxalate Crystal Urine Yeast Influenza Type A Ag Influenza Type B Ag Blood Type Antibody Screen 05/09/18 05/09/18 22:58 23:37 WBC RBC Hgb Hct MCV MCH MCHC RDW Std Deviation RDW Coeff of [place] Plt Count MPV Immature Gran % (Auto) Neut % (Auto) Lymph % (Auto) [place] % (Auto) Eos % (Auto) Baso % (Auto) Immature Gran # (Auto) Neut # (Auto) Lymph # (Auto) [place] # (Auto) Eos # (Auto) Baso # (Auto) PT INR APTT PTT Ratio Sodium Potassium Chloride Carbon Dioxide Anion Gap BUN Creatinine Est Cr Clr Drug Dosing Est GFR ( Amer) Est GFR (Non-Af Amer) BUN/Creatinine Ratio Glucose POC Glucose Lactate Calcium Magnesium Total Bilirubin AST ALT Alkaline Phosphatase Troponin I Total Protein Albumin Globulin Albumin/Globulin Ratio Urine Color Yellow Urine Appearance Clear Urine pH 5.5 Ur Specific [place] 1.014 Urine Protein Negative Urine Glucose (UA) Negative Urine Ketones Negative Urine Blood Trace H Urine Nitrite Negative Urine Bilirubin Negative Urine Urobilinogen Negative Ur Leukocyte Esterase 1+ H Urine WBC (Auto) 10-30 H Urine RBC (Auto) 0-4 U Hyaline Cast (Auto) 10-30 H U Epithel Cells (Auto) >30 H Urine Bacteria (Auto) 2+ H Calcium Oxalate Crystal Present H Urine Yeast Budding H Influenza Type A Ag Influenza Type B Ag Blood Type O Negative Antibody Screen NEGATIVE Diagnostic Findings PORTABLE CHEST X-RAY FINDINGS: No focal lung consolidations to suggest pneumonia. No evidence for pulmonary edema. Small left basilar linear density favors atelectasis or scarring. This remains unchanged. Cardiac silhouette remains mildly enlarged. No pleural effusions. No pneumothorax. IMPRESSION: No significant change compared to the prior study. No acute process. Electronically signed by: Luis Nelson M.D. 05/09/2018 11:[address] HEAD Findings: The paranasal sinuses and mastoid air cells are clear. The calvarium and skull base are intact. There is no mass, hematoma, midline shift, acute infarct. White matter hypodensity is nonspecific but suggestive of microvascular ischemic change. The ventricles and sulci demonstrate mild age-related involutional changes. 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 This remains unchanged. Impression: No significant change compared to the prior study. No acute intracranial abnormality. 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 Electronically signed by: Luis Nelson M.D. 05/09/2018 10:55 PM ECG Additional Comments: EKG performed at 2223 reviewed and demonstrated NSR at 74 / min, incomplete RBBB, no acute changes. Code Status & VTE Plan Code Status Discussed with grandson who is power of trademark attorney. Patient has a living will. She would like resuscitation attempted if there is a reasonable chance of a meaningful recovery. However, she would not want extraordinary measures initiated or continued if prognosis is poor. VTE Prophylaxis Plan VTE Prophylaxis will be ordered: Yes (1) Fever Fever type: unspecified Qualified Code(s): R50.9 - Fever, unspecified
--- NOTE | 2018-05-10 02:24 | Emergency Department Note ---
Entered by Apple Herman acting as a scribe for Cesar Guajardo MD History of Present Illness General Chief complaint: Neuro Symptoms/Deficit Source: patient History of Present Illness Onset (ago): hour(s) (5.5) Location: head Pain Consistency: + other (episode) Quality: + other (neurological symptoms) Associated symptoms: + cough, + fever/chills, + shortness of breath and + other (positive visual hallucination; positive left arm weakness and pain; negative neck pain; positive strong smelling urine) The patient is a 82 year old female who presents to the Emergency Room with complaints of an episode of neurological symptoms that began about 5.5 hours prior to arrival. The patient's family states that the patient had a visual hallucination, and states that the patient looked out the window and said it looked like there was a plane landing, but there was no plane there. The patient's family states that the patient was then in the bath when she had some shortness of breath. This is not unusual for her when she exerts herself. Per patient's family, 1.5 hours ago the patient's left arm became weak, numb and painful. The patient states that this numbness, weakness and pain has resolved. The patient denies neck pain. Per the patient's family, the patient has had a fever over the past week, strong smelling urine, and a cough recently. Her last fever was 2 days ago. The patient's family states that she has a history of stroke, and states that her symptoms today are not similar to previous episodes. Per the patient's family, the patient is on Plavix. Home Medications Home Medications Medication Instructions Recorded Confirmed Type amlodipine 10 mg PO QAM 03/05/18 05/09/18 History atorvastatin 10 mg PO QPM 03/05/18 05/09/18 History calcium carbonate-vitamin D3 1 tab PO TIDM 03/05/18 05/09/18 History clopidogrel 75 mg PO QAM 03/05/18 05/09/18 History docusate sodium [Colace] 100 mg PO BID PRN 03/05/18 05/09/18 History furosemide 20 mg PO BID 03/05/18 05/09/18 History levothyroxine 25 mg PO QAM 03/05/18 05/09/18 History lisinopril 40 mg PO QAM 03/05/18 05/09/18 History metoprolol tartrate 12.5 mg PO BID 03/05/18 05/09/18 History pantoprazole 40 mg PO QAM 03/05/18 05/09/18 History sertraline 25 mg PO HS 03/05/18 05/09/18 History albuterol sulfate [ProAir HFA] 2 puff INHALATION Q4H PRN 05/09/18 05/09/18 History fluticasone propionate 2 spry INTRANASAL DAILY PRN 05/09/18 05/09/18 History loratadine 10 mg PO DAILY PRN 05/09/18 05/09/18 History nystatin 1 applic TOPICAL BID PRN 05/09/18 05/09/18 History polymyxin B sulf-trimethoprim 1 drp OPL UD 05/09/18 05/09/18 History Allergies Allergy/AdvReac Type Severity Reaction Status Date / Time aspirin Allergy Severe ANAPHYLAXIS, Verified 05/09/18 23:07 SWELLING Past Med/Surg History Medical History Hypothyroidism (Chronic) CKD (chronic kidney disease) stage 3, GFR 30-59 ml/min (Chronic) Dyslipidemia (Chronic) HTN (hypertension) (Chronic) 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 and A total of 10 systems reviewed and were otherwise negative Physical Exam Vital Signs Vital Signs - 24 hr 05/09/18 21:55 05/09/18 23:39 05/10/18 02:16 Temperature 37.1 C Temperature Source Oral Sepsis Recent Fever Within 48 Hours Yes Sepsis New/Unexplained Change in Mental Status No Sepsis Action Taken by Nursing No Action Required Pulse Rate 77 Pulse Rate [Apical] 74 78 Pulse Rhythm Regular Pulse Strength Normal Respiratory Rate 20 22 20 Respiratory Effort / Characteristics Normal for Patient Respiratory Depth Normal Blood Pressure 157/52 H Blood Pressure [Left Arm] 187/65 H 175/61 H Blood Pressure Mean 87 Blood Pressure Mean [Left Arm] 105 99 Blood Pressure Position Lying Pulse Oximetry 96 97 95 Oxygen Delivery Method Room Air Room Air Room Air Constitutional: Vital signs reviewed. Hard of hearing. Eyes: Pupils are equal round reactive to light. Conjunctiva are noninjected. ENT: Pharynx is clear without erythema or exudate. Mucous membranes are moist. Neck supple without meningeal signs. Respiratory: Clear to auscultation bilaterally. Breath sounds are equal bilaterally. Cardiovascular: Regular rate and rhythm. No rubs or gallops. GI: Soft, nondistended and nontender. Bowel sounds are present. Musculoskeletal: No peripheral edema. No lower extremity tenderness. Integumentary: No cyanosis. Neurological: The patient is awake and alert. Cranial nerves II-XII are intact except for her hearing. Motor is 5 out of 5 all extremities. Sensation is intact to light touch all extremities. Normal speech. No limb ataxia. Slight left pronator drift. Psychiatric: Normal affect. Course 2225: Past medical records reviewed. The patient was evaluated in room C12A, and a complete history and physical examination were performed. 2239: I discussed the case with Dr. Maya Neurology who states that because it is 5.5 hours out from her initial symptoms, the patient is not an IV tPA candidate. Dr. Otto states that because the patient has mild symptoms currently, she is not a candidate for intervention. The patient will receive local care. 2335: I talked about the test results with the patient. She refused cath urine, but urinated in cup. 0037: I talked to the patient and her daughter about the test results. The patient states that she has no symptoms currently. I recommended hospitalization. 0054: I discussed the case with Dr. Joe Kaye who accepts the patient for further evaluation. Consultations Consultation #1: I discussed the case with Dr. Maya Neurology who states that because it is 5.5 hours out from her initial symptoms, the patient is not an IV tPA candidate. Dr. Otto states that because the patient has mild symptoms currently, she is not a candidate for intervention. The patient will receive local care. Time: 22:39 Consultation #2: I discussed the case with Dr. Joe Kaye who accepts the patient for further evaluation. Time: 00:54 Administered Medications Medical Decision Making Differential Diagnosis Differential diagnoses include CVA, TIA, ICH, encephalopathy, cervical radiculopathy, UTI, pneumonia, and others were considered. Medical Records Attestation: I reviewed the patient's medical records. (The patient was seen for a cough and diarrhea in 02/2018. The patient had an MRI of the brain performed on 10/2017 that showed old strokes but no acute event. ) Home Medications Current Medication List: was personally reviewed by me Laboratory Data Attestation: I reviewed the patient's lab results. Result diagrams: 05/09/18 22:58 05/09/18 22:58 Lab Results 05/09/18 05/09/18 05/09/18 Range/Units 22:36 22:42 22:58 WBC 14.51 H (4.8-10.8) K/uL RBC 4.09 L (4.2-5.4) M/uL Hgb 11.0 L (12.0-16.0) g/dL Hct 34.1 L (37-47) % MCV 83.4 (80-100) fL MCH 26.9 (25-34) pg MCHC 32.3 (32-36) g/dL RDW Std Deviation 47.8 H (36.4-46.3) fL RDW Coeff of Cain 15.6 H (11.5-14.5) % Plt Count 294 (130-400) K/uL MPV 9.4 (7.4-10.4) fL Immature Gran % (Auto) 0.5 % Neut % (Auto) 82.9 % Lymph % (Auto) 6.8 % [place] % (Auto) 7.9 % Eos % (Auto) 1.7 % Baso % (Auto) 0.2 % Immature Gran # (Auto) 0.07 H (0.00-0.02) K/uL Neut # (Auto) 12.03 H (1.4-6.5) K/uL Lymph # (Auto) 0.99 L (1.2-3.4) K/uL [place] # (Auto) 1.15 H (0.11-0.59) K/uL Eos # (Auto) 0.24 (0-0.5) K/uL Baso # (Auto) 0.03 (0-0.2) K/uL PT (9.0-12.0) Seconds INR (0.9-1.1) APTT (21.0-31.0) Seconds PTT Ratio Sodium (136-145) mmol/L Potassium (3.5-5.1) mmol/L Chloride (98-107) mmol/L Carbon Dioxide (21-32) mmol/L Anion Gap (3-11) BUN (7-18) mg/dl Creatinine (0.6-1.2) mg/dl Est Cr Clr Drug Dosing ml/min Est GFR ( Amer) Est GFR (Non-Af Amer) BUN/Creatinine Ratio (10-20) Glucose (70-99) mg/dl POC Glucose 115 H (70-99) Lactate (0.4-2.0) mmol/L Calcium (8.5-10.1) mg/dl Magnesium (1.8-2.4) mg/dl Total Bilirubin (0.2-1) mg/dl AST (15-37) U/L ALT (12-78) U/L Alkaline Phosphatase (45-117) U/L Troponin I (0-0.045) ng/ml Total Protein (6.4-8.2) gm/dl Albumin (3.4-5.0) gm/dl Globulin (2.5-4.0) gm/dl Albumin/Globulin Ratio (0.9-2) Urine Color Urine Appearance (Clear) Urine pH (4.5-7.5) Ur Specific [place] (1.000-1.030) Urine Protein (Negative) Urine Glucose (UA) (Negative) Urine Ketones (Negative) Urine Blood (Negative) Urine Nitrite (Negative) Urine Bilirubin (Negative) Urine Urobilinogen (Negative) Ur Leukocyte Esterase (Negative) Urine WBC (Auto) (0-5) /hpf Urine RBC (Auto) (0-4) /hpf U Hyaline Cast (Auto) (0-5) /lpf U Epithel Cells (Auto) (0-5) /lpf Urine Bacteria (Auto) (Negative) Calcium Oxalate Crystal (None Prsent) Urine Yeast (None Prsent) Influenza Type A Ag Neg for Influ A (Neg) Influenza Type B Ag Neg for Influ B (Neg) Blood Type Antibody Screen 05/09/18 05/09/18 05/09/18 Range/Units 22:58 22:58 22:58 WBC (4.8-10.8) K/uL RBC (4.2-5.4) M/uL Hgb (12.0-16.0) g/dL Hct (37-47) % MCV (80-100) fL MCH (25-34) pg MCHC (32-36) g/dL RDW Std Deviation (36.4-46.3) fL RDW Coeff of Cain (11.5-14.5) % Plt Count (130-400) K/uL MPV (7.4-10.4) fL Immature Gran % (Auto) % Neut % (Auto) % Lymph % (Auto) % [place] % (Auto) % Eos % (Auto) % Baso % (Auto) % Immature Gran # (Auto) (0.00-0.02) K/uL Neut # (Auto) (1.4-6.5) K/uL Lymph # (Auto) (1.2-3.4) K/uL [place] # (Auto) (0.11-0.59) K/uL Eos # (Auto) (0-0.5) K/uL Baso # (Auto) (0-0.2) K/uL PT 12.6 H (9.0-12.0) Seconds INR 1.2 H (0.9-1.1) APTT 24.8 (21.0-31.0) Seconds PTT Ratio 0.9 Sodium 139 (136-145) mmol/L Potassium 4.1 (3.5-5.1) mmol/L Chloride 103 (98-107) mmol/L Carbon Dioxide 32 (21-32) mmol/L Anion Gap 5.0 (3-11) BUN 20 H (7-18) mg/dl Creatinine 1.38 H (0.6-1.2) mg/dl Est Cr Clr Drug Dosing 29.5 ml/min Est GFR ( Amer) 40.6 Est GFR (Non-Af Amer) 35.0 BUN/Creatinine Ratio 14.3 (10-20) Glucose 136 H (70-99) mg/dl POC Glucose (70-99) Lactate 2.3 H* (0.4-2.0) mmol/L Calcium 8.3 L (8.5-10.1) mg/dl Magnesium 1.8 (1.8-2.4) mg/dl Total Bilirubin 0.3 (0.2-1) mg/dl AST 11 L (15-37) U/L ALT 13 (12-78) U/L Alkaline Phosphatase 96 (45-117) U/L Troponin I 0.027 (0-0.045) ng/ml Total Protein 7.2 (6.4-8.2) gm/dl Albumin 2.9 L (3.4-5.0) gm/dl Globulin 4.3 H (2.5-4.0) gm/dl Albumin/Globulin Ratio 0.7 L (0.9-2) Urine Color Urine Appearance (Clear) Urine pH (4.5-7.5) Ur Specific [place] (1.000-1.030) Urine Protein (Negative) Urine Glucose (UA) (Negative) Urine Ketones (Negative) Urine Blood (Negative) Urine Nitrite (Negative) Urine Bilirubin (Negative) Urine Urobilinogen (Negative) Ur Leukocyte Esterase (Negative) Urine WBC (Auto) (0-5) /hpf Urine RBC (Auto) (0-4) /hpf U Hyaline Cast (Auto) (0-5) /lpf U Epithel Cells (Auto) (0-5) /lpf Urine Bacteria (Auto) (Negative) Calcium Oxalate Crystal (None Prsent) Urine Yeast (None Prsent) Influenza Type A Ag (Neg) Influenza Type B Ag (Neg) Blood Type Antibody Screen 05/09/18 05/09/18 Range/Units 22:58 23:37 WBC (4.8-10.8) K/uL RBC (4.2-5.4) M/uL Hgb (12.0-16.0) g/dL Hct (37-47) % MCV (80-100) fL MCH (25-34) pg MCHC (32-36) g/dL RDW Std Deviation (36.4-46.3) fL RDW Coeff of Cain (11.5-14.5) % Plt Count (130-400) K/uL MPV (7.4-10.4) fL Immature Gran % (Auto) % Neut % (Auto) % Lymph % (Auto) % [place] % (Auto) % Eos % (Auto) % Baso % (Auto) % Immature Gran # (Auto) (0.00-0.02) K/uL Neut # (Auto) (1.4-6.5) K/uL Lymph # (Auto) (1.2-3.4) K/uL [place] # (Auto) (0.11-0.59) K/uL Eos # (Auto) (0-0.5) K/uL Baso # (Auto) (0-0.2) K/uL PT (9.0-12.0) Seconds INR (0.9-1.1) APTT (21.0-31.0) Seconds PTT Ratio Sodium (136-145) mmol/L Potassium (3.5-5.1) mmol/L Chloride (98-107) mmol/L Carbon Dioxide (21-32) mmol/L Anion Gap (3-11) BUN (7-18) mg/dl Creatinine (0.6-1.2) mg/dl Est Cr Clr Drug Dosing ml/min Est GFR ( Amer) Est GFR (Non-Af Amer) BUN/Creatinine Ratio (10-20) Glucose (70-99) mg/dl POC Glucose (70-99) Lactate (0.4-2.0) mmol/L Calcium (8.5-10.1) mg/dl Magnesium (1.8-2.4) mg/dl Total Bilirubin (0.2-1) mg/dl AST (15-37) U/L ALT (12-78) U/L Alkaline Phosphatase (45-117) U/L Troponin I (0-0.045) ng/ml Total Protein (6.4-8.2) gm/dl Albumin (3.4-5.0) gm/dl Globulin (2.5-4.0) gm/dl Albumin/Globulin Ratio (0.9-2) Urine Color Yellow Urine Appearance Clear (Clear) Urine pH 5.5 (4.5-7.5) Ur Specific [place] 1.014 (1.000-1.030) Urine Protein Negative (Negative) Urine Glucose (UA) Negative (Negative) Urine Ketones Negative (Negative) Urine Blood Trace H (Negative) Urine Nitrite Negative (Negative) Urine Bilirubin Negative (Negative) Urine Urobilinogen Negative (Negative) Ur Leukocyte Esterase 1+ H (Negative) Urine WBC (Auto) 10-30 H (0-5) /hpf Urine RBC (Auto) 0-4 (0-4) /hpf U Hyaline Cast (Auto) 10-30 H (0-5) /lpf U Epithel Cells (Auto) >30 H (0-5) /lpf Urine Bacteria (Auto) 2+ H (Negative) Calcium Oxalate Crystal Present H (None Prsent) Urine Yeast Budding H (None Prsent) Influenza Type A Ag (Neg) Influenza Type B Ag (Neg) Blood Type O Negative Antibody Screen NEGATIVE Imaging Data Radiologist's Impression: Radiology results as stated below per my review and the radiologist's interpretation: XR chest 1V portable HISTORY: Fever. COMPARISON: Chest 03/05/2018. FINDINGS: No focal lung consolidations to suggest pneumonia. No evidence for pulmonary edema. Small left basilar linear density favors atelectasis or scarring. This remains unchanged. Cardiac silhouette remains mildly enlarged. No pleural effusions. No pneumothorax. IMPRESSION: No significant change compared to the prior study. No acute process. Electronically signed by: Luis Nelson M.D. 05/09/2018 11:[address]AST CT DOSE: 537.48 mGy.cm HISTORY: Left arm weakness. Stroke evaluation TECHNIQUE: Multiaxial CT images of the head were performed without the use of intravenous contrast. Automated exposure control was utilized for this study. A dose lowering technique was utilized adhering to the principles of ALARA. Comparison: None. Findings: The paranasal sinuses and mastoid air cells are clear. The calvarium and skull base are intact. There is no mass, hematoma, midline shift, acute infarct. White matter hypodensity is nonspecific but suggestive of microvascular ischemic change. The ventricles and sulci demonstrate mild age-related i nvolutional changes. 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 This remains unchanged. Impression: No significant change compared to the prior study. No acute intracranial abnormality. 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 Electronically signed by: Luis Nelson M.D. 05/09/2018 10:55 PM ECG Data Attestation: I personally reviewed and interpreted this ECG as follows: Indication: other (stroke symptoms ) Rate (beats per minute): 74 Rhythm: normal sinus Findings: + RBBB (incomplete); no ST elevation Blood Pressure Blood Pressure Findings: Elevated blood pressure Blood Pressure Disposition: Referred to patients primary care provider [facility] Narrative I did evaluate the patient as noted above. Patient is presenting with visual hallucinations as well as left arm weakness and numbness. I did call a stroke alert. I did order a stat CT of the head. I did review the images myself as well as the radiology report as described above. There is no evidence of acute abnormality. I did discuss the case with the [facility] on-call neurologist. She felt the patient was not an IV TPA candidate due to the time course and not a candidate for intervention given her minimal symptoms at this time. IV access was established. The patient was placed on a continuous environmental monitoring technician. I did order and personally review the patient's 12-lead EKG as described above. There is no evidence of acute ischemia. I did order and personally reviewed the images of the patient's chest x-ray as described above. No signs of pneumonia. I did order a urine analysis. She did have some white cells and leukocyte esterase. I did order and review the patient's blood work as noted in the electronic medical record. Her white count is elevated. Creatinine is also slightly elevated and she has a mild anemia. Rapid flu testing is negative. I did discuss the test results with the patient and her granddaughter in-law. She does not have any significant symptoms at this time. I did recommend hospitalization for further care and evaluation. I did discuss case with the spitalist and rn field case manager. Impression & Plan Left arm numbness, Left arm weakness, Fever Discharge Plan Visit Data Chief Complaint: Neuro Symptoms/Deficit ED Provider: Cesar Guajardo Discharge Problem: Left arm numbness, Left arm weakness, Fever Patient Disposition: Being Evaluated by Hospitalist Forms Stand Alone Forms: My [facility] Prescriptions Prescriptions: No Action loratadine 10 mg Tablet 10 mg PO DAILY PRN (Reason: Allergy Symptoms) RF: 0 fluticasone propionate 50 mcg/actuation spray,suspension 2 spry intranasal DAILY PRN (Reason: Allergy Symptoms) RF: 0 albuterol sulfate [ProAir HFA] 90 mcg/actuation Hfa Aerosol Inhaler 2 puff INHALATION Q4H PRN (Reason: Shortness Of Breath Or Wheezing) RF: 0 nystatin 100,000 unit/gram cream 1 applic topical BID PRN (Reason: Skin Irritation) RF: 0 polymyxin B sulf-trimethoprim 10,000 unit- 1 mg/mL drops 1 drp OPL UD RF: 0 atorvastatin 10 mg tablet 10 mg PO QPM RF: 0 clopidogrel 75 mg tablet 75 mg PO QAM RF: 0 levothyroxine 25 mcg tablet 25 mg PO QAM RF: 0 amlodipine 10 mg tablet 10 mg PO QAM RF: 0 pantoprazole 40 mg tablet,delayed release (DR/EC) 40 mg PO QAM RF: 0 sertraline 25 mg tablet 25 mg PO HS RF: 0 lisinopril 40 mg tablet 40 mg PO QAM RF: 0 furosemide 20 mg tablet 20 mg PO BID RF: 0 metoprolol tartrate 25 mg tablet 12.5 mg PO BID RF: 0 docusate sodium [Colace] 100 mg Capsule 100 mg PO BID PRN (Reason: Constipation) RF: 0 calcium carbonate-vitamin D3 500 mg(1,250mg) -400 unit Tablet 1 tab PO TIDM RF: 0 Referrals Referrals: Cathleen Infante [Primary Care Provider] - Discharge Problem: Fever Qualifiers: Fever type: unspecified Qualified Code(s): R50.9 - Fever, unspecified The scribe's documentation has been prepared under my direction and personally reviewed by me in its entirety. I confirm that the note above accurately reflects all work, treatment, procedures, and medical decision making performed by me.
[2018-05-10] MEDS ORDERED: PHARMACIST DISCHARGE MED REC CONSULT PRN (03:39)
[2018-05-10] MEDS ORDERED: ACETAMINOPHEN 325 MG TAB PO PRN (03:39)
[2018-05-10] MEDS ORDERED: LACTATED RINGER'S 1,000 ML IV SCH (03:39)
[2018-05-10] MEDS ORDERED: ALBUTEROL HFA 8 GM INHALER INH PRN (03:45)
[2018-05-10] MEDS: LEVOTHYROXINE SODIUM 25 MCG TABLET PO SCH (05:56)
[2018-05-10 06:22] LABS: Basophils # (auto) 0.02 K/uL (0-0.2); Basophils % (auto) 0.2 %; Eosinophils # (auto) 0.25 K/uL (0-0.5); Eosinophils % (auto) 1.9 %; Hematocrit (blood only) 31.2 % (37-47); Hemoglobin 9.8 g/dL (12.0-16.0); Immature Granulocytes # (auto) 0.04 K/uL (0.00-0.02); Immature Granulocytes % (auto) 0.3 %; Lymphocytes # (auto) 1.46 K/uL (1.2-3.4); Lymphocytes % (auto) 11.1 %; Mean Corpuscular Hgb Conc 31.4 g/dL (32-36); Mean Corpuscular Volume 83.2 fL (80-100); Mean Platelet Volume 9.5 fL (7.4-10.4); Monocytes # (auto) 1.03 K/uL (0.11-0.59); Monocytes % (auto) 7.8 %; Neutrophils # (auto) 10.39 K/uL (1.4-6.5); Neutrophils % (auto) 78.7 %; Platelet Count 263 K/uL (130-400); RDW Coefficient of Variation 15.6 % (11.5-14.5); RDW Standard Deviation 47.4 fL (36.4-46.3); Red Blood Count 3.75 M/uL (4.2-5.4); White Blood Count 13.19 K/uL (4.8-10.8)
[2018-05-10 06:37] LABS: INR 1.3 (0.9-1.1); Partial Thromboplastin Ratio 0.9; Partial Thromboplastin Time 24.7 Seconds (21.0-31.0); Prothrombin Time 12.8 Seconds (9.0-12.0)
[2018-05-10 06:52] LABS: Calcium 7.9 mg/dl (8.5-10.1); Creatinine Clr Calc Pharmacy 37.8 ml/min; Est GFR (African American) 53.4; Est GFR (Non-African American) 46.1; Potassium 4.1 mmol/L (3.5-5.1)
[2018-05-10] MEDS: HEPARIN SOD 5,000 UNIT/0.5 ML VIAL SQ SCH ×2 (08:19→20:39)
[2018-05-10] MEDS: PANTOprazole 40 MG TAB PO SCH (08:19)
[2018-05-10] MEDS: AMLODIPINE BESYLATE 5 MG TAB PO SCH (08:20)
[2018-05-10] MEDS: METOPROLOL TARTRATE 25 MG TAB PO SCH ×2 (08:20→20:37)
[2018-05-10] MEDS: CLOPIDOGREL BISULFATE 75 MG TAB PO SCH (08:21)
[2018-05-10 08:22] LABS: Estimated Average Glucose 120 mg/dl; Hemoglobin A1C 5.8 % (4.5-5.6)
--- NOTE | 2018-05-10 08:27 | Ultrasound Report ---
US carotid doppler BI CLINICAL HISTORY: 82 years-old Female presenting with stroke. TECHNIQUE: Real-time grayscale and color and spectral Doppler ultrasound imaging of the bilateral car otid arteries was performed. Stenosis measurements were based on NASCET-like criteria (distal lumen d iameter as the denominator for stenosis measurement). COMPARISON: None. FINDINGS: Examination was limited due to patient breathing and coughing limiting image quality and diagnostic s ensitivity the exam. RIGHT: Common carotid artery (CCA): Patent. Peak systolic velocity (PSV) 101 cm/s. Internal carotid artery (ICA): Atherosclerosis of the proximal ICA. Pansystolic broadening of wavefor ms evident. PSV 166 cm/s. End diastolic velocity (EDV) 26 cm/s. ICA/CCA (systolic) ratio: 1.6. External carotid artery (ECA): Patent. PSV 122 cm/s. LEFT: CCA: Patent. PSV 181 cm/s. ICA: Atherosclerosis of the proximal ICA. Pansystolic broadening of waveforms evident. PSV 112 cm/s. EDV 18 cm/s. ICA/CCA (systolic) ratio: 0.6. ECA: Atherosclerosis. PSV 153 cm/s. Bilateral antegrade flow within the vertebral arteries. Blood pressure: Not performed due to intravenous catheter. Brachial: Right: mmHg, Left: mmHg. Reference ranges: Stenosis measurements are compared to reference velocity parameters by the Society of Radiologists in Ultrasound (SRU) consensus and Sonographic NASCET index (S-NASCET). * SRU Primary parameters: ICA PSV <125 cm/s = normal or less than 50% stenosis; ICA PSV 125-230 cm/s = 50-69% stenosis; ICA PSV >230 cm/s = greater than or equal to 70% stenosis. * SRU Additional parameters: ICA/CCA PSV ratio <2 = normal or less than 50% stenosis; ratio 2-4 = 5 0-69% stenosis; ratio >4 = greater than or equal to 70% stenosis. ICA EDV <40 cm/s = normal or less t balderrama 50% stenosis; ICA EDV 40-100 cm/s = 50-69% stenosis; ICA EDV >100 cm/s = greater than or equal to 70% stenosis. * S-NASCET parameters: Deceleration spectral broadening + PSV <125 cm/s = less than 50% stenosis; pa nsystolic spectral broadening + PSV <125 cm/s = 16-49% stenosis; pansystolic spectral broadening + PS V >125 cm/s + EDV <110 cm/s or ICA/CCA PSV ratio 2-4 = 50-69% stenosis; pansystolic spectral broadeni ng + PSV >270 cm/s OR EDV >110 cm/s OR ICA/CCA PSV ratio >4 = 70-79% stenosis; EDV >140 cm/s = 80-99% stenosis. IMPRESSION: Examination was limited due to patient breathing and coughing limiting image quality and diagnostic s ensitivity the exam. 1. Atherosclerosis. 2. 50-69% stenosis in the right internal carotid artery. 3. 16-49% stenosis of the left internal carotid artery. Electronically signed by: Paul Rojo M.D. 05/10/2018 8:26 AM
--- NOTE | 2018-05-10 14:20 | Magnetic Resonance Report ---
MR brain wo con HISTORY: 82 years-old Female stroke acute strokelike symptoms COMPARISON: CT head 05/09/2018, brain MRI 10/10/2017 and 04/25/2015 TECHNIQUE: Multiplanar multisequence M RI of the brain was obtained without the use of IV contrast. FINDINGS: There is a focal area of restricted diffusion noted about the periventricular medial right occipital lobe on images 1011 series 5 measuring up to 1.4 x 1.7 cm with increased T2/FLAIR signal within this distribution measuring up to 1.3 cm in craniocaudal dimension. Additional area of restricted diffusio n is noted about the superior right cerebellar hemisphere with decreased signal on the ADC map measur ing 1.3 x 0.8 cm on image 7 of series 5. There is no acute intracranial hemorrhage, midline shift or abnormal extra-axial fluid collection. Ag e-related involutional changes with moderate chronic microvascular ischemic disease. Encephalomalacia with adjacent gliosis noted about the right MCA distribution. Midline structures including the corpu s callosum, brainstem, optic chiasm, pituitary and pineal glands are unremarkable in the sagittal T1 series. Degenerative changes noted about the imaged cervical spine. There is an indeterminate 1.4 x 1 .0 x 1.0 cm area of decreased T1 marrow signal noted about the right frontal calvarium on image 8 ser ies 3 and image 18 series 7 which appears progressed from 2016. No correlate seen on the CT images. M ajor flow voids appear to be patent. Mastoid air cells are clear. Prior bilateral cataract repair. Mi ld mucosal thickening of the ethmoid air cells. Soft tissues are unremarkable. IMPRESSION: 1. Acute infarction of the periventricular medial right occipital lobe measures up to 1.4 x 1.7 cm. 2. Acute to subacute appearing infarction of the superior right cerebellar hemisphere is noted measur ing up to 1.3 cm. 3. No midline shift, hydrocephalus or intracranial hemorrhage. 4. Age-related involutional changes with chronic microvascular ischemic changes. Encephalomalacia and gliosis about a remote right MCA distribution infarct. 5. Indeterminate area of decreased T1 marrow signal about the right frontal calvarium measures up to 1.4 cm. Benign and malignant etiologies are within the differential. A follow-up nonemergent bone sca n could be considered. The above report was generated using voice recognition software. It may contain grammatical, syntax o r spelling errors. Electronically signed by: Jaime Chaparro M.D. 05/10/2018 2:19 PM
--- NOTE | 2018-05-10 14:26 | Neurology Consultation ---
Date of Consultation May 10, 2018 Assessment & Plan (1) Acute CVA (cerebrovascular accident): 1. MRI with acute periventricular medial right occipital lobe and subacute infract right cerebellar hemisphere, also noted T1 marrow signal change in calverium 2. TTE- no ASD 3. carotid - right ICA 50-69% stenosis 4. plavix 75 mg home med, aspirin allergy can not start dual antiplt therapy will need to discuss 5. optimize HTN, HLD, DM LDL <70 - consider patient age 6. PT/OT speech for any discharge needs 7. MRA head and neck to evaluate posterior circulation vessels 8. will need ZIO as outpatient or cardio net which was done after stroke in 04/2015 Supervising Physician Co-Signing Physician Notes I have seen and discussed above patient with Dr Wilbert Ludwig, neurology Seen Mrs. Mackenzie, examined her, reviewed her history and her imaging studies. She has a remote history of a right middle cerebral artery distribution CVA and had a thorough workup at that time feeling no apparent source of emboli but did have a mild atheromatous narrowing of the internal carotid and an occluded right vertebral artery with dominant flow through the left which perfuse both posterior cerebral arteries and the entire basilar. He now presents with a transient confusional state occurring in the setting of increasing cough and perhaps some peripheral edema for a week and with some findings on urinalysis suggest potential urinary tract infection Consider the MRI now shows evidence for new infarction in the right cerebellar hemisphere and right medial occipital lobe consistent with a posterior circulation event possibly an embolic origin and possibly cardiogenic in light now of the multiple distribution cerebrovascular accidents over a series of several years She is aspirin sensitive and we are simply going to continue the Plavix at this point Plans are to reimage the extracranial vasculature to make sure there is now not a new lesion involving the dominant vertebral artery which may have been a source of embolism or intracranial process and will probably set her up for an outpatient ZIO patch unless we are fortunate enough to detect evidence for paroxysmal atrial fibrillation while she is here in the hospital. Ideally she should be in a monitored bed as 1 of the points of the differential diagnosis would be the presence or absence of atrial fibrillation we are going to discuss this with her current attending physician Dr. Parekh The EEG which I ordered is normal and indicates no evidence for potentially epileptogenic activity originating from the old right middle cerebral artery distribution infarct We will be checking back tomorrow reviewing the data that has emerged over the ensuing 12-24 hours Wilbert Ludwig MD History of Present Illness Reason for Consultation: stroke like symptoms Requesting Physician: Juan Lo MD Attending Physician: Juan Lo MD History of Present Illness Sumi is a 82 year old female who has a PMH CVD, HTN, hypothyroid, CKD III, HLD, OA, anemia. She had a low grade fever for the past few days and a productive cough, and several loose stools. Around 1700 she was confused and had some hallucinations then developed left UE weakness. She was brought to the ED for further evaluation. Her blood pressure was elevated on admission, no fever. 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 A stroke alert was called but no TPA was recommended. She is on plavix no aspirin due to a aspirin allergy which she states cause swelling. denies CP, SOB, abdominal pain, one sided weakness, numbness tingling, N, V, slurred speech, swallowing difficulties. Allergies Allergy/AdvReac Type Severity Reaction Status Date / Time aspirin Allergy Severe ANAPHYLAXIS, Verified 05/09/18 23:07 SWELLING Home Medications Home Medications Medication Instructions Recorded Confirmed Type amlodipine 10 mg PO QAM 03/05/18 05/09/18 History atorvastatin 10 mg PO QPM 03/05/18 05/09/18 History calcium carbonate-vitamin D3 1 tab PO TIDM 03/05/18 05/09/18 History clopidogrel 75 mg PO QAM 03/05/18 05/09/18 History docusate sodium [Colace] 100 mg PO BID PRN 03/05/18 05/09/18 History furosemide 20 mg PO BID 03/05/18 05/09/18 History levothyroxine 25 mcg PO QAM 03/05/18 05/10/18 History lisinopril 40 mg PO QAM 03/05/18 05/09/18 History metoprolol tartrate 12.5 mg PO BID 03/05/18 05/09/18 History pantoprazole 40 mg PO QAM 03/05/18 05/09/18 History sertraline 25 mg PO HS 03/05/18 05/09/18 History albuterol sulfate [ProAir HFA] 2 puff INHALATION Q4H PRN 05/09/18 05/09/18 History fluticasone propionate 2 spry INTRANASAL DAILY PRN 05/09/18 05/09/18 History loratadine 10 mg PO DAILY PRN 05/09/18 05/09/18 History nystatin 1 applic TOPICAL BID PRN 05/09/18 05/09/18 History polymyxin B sulf-trimethoprim 1 drp OPL UD 05/09/18 05/09/18 History Patient History Medical History Cerebrovascular disease (Chronic) Hypothyroidism (Chronic) CKD (chronic kidney disease) stage 3, GFR 30-59 ml/min (Chronic) Dyslipidemia (Chronic) HTN (hypertension) (Chronic) 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) Osteoporosis (Chronic) Osteoarthritis (Chronic) Anemia (Chronic) Renal lesion (Chronic) Social History Preferred Language: Malay 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 Ability: Effective 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 Ability Comment: extremely [place], forgot hearing aids Senior 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: No Beliefs That Will Affect Care: None Current Living Situation: Family Feels Safe at Home: Yes Safety Concerns: Feels Safe At This Time Smoking Status: Unknown if ever smoked Hx Alcohol Use: No Hx Substance Use: No Physical Exam Vital Signs (Past 24 Hours): Last Vital Signs Temp 37.1 C 05/10/18 11:54 Pulse 71 05/10/18 11:54 Resp 18 05/10/18 11:54 BP 136/72 05/10/18 11:54 Pulse Ox 94 05/10/18 11:54 Physical Exam: Constitutional: appearance over nourished healthy Ears, Nose, Mouth and Throat: mucous membranes moist, no injection and skin normal, eyes normal Cardiovascular: normal S-1 and S-2 and regular rate and rhythm Respiratory: course breath sounds with inspiratory wheezing. Musculoskeletal: non pitting peripheral edema Skin: venous stasis bilaterally LE Eyes: extraocular muscles intact (EOMI) and pupils equal, round and reactive to light (PERRL) NEUROLOGIC EXAMINATION: Mental status: Alert and interactive Oriented to person, place, lives in [place], lives with family, very [place] but repeated no ifs ands or buts, identifies button, pen Oriented to person Speech fluent with no evidence of aphasia Cranial Nerves smile and eye brow raise symmetric Reflexes: Deep tendon reflexes were symmetrical and graded 2/5. Plantar neutral no clonus Sensory: decreased sensation to cool touch from garcia to toes, vibration intact, GT proprioception intact Coordination: Romberg absent Gait/Stance: Posture sitting in wheelchair Motor: slight left side drift for pronator drift of out stretched arms with eyes closed. Strength: biceps triceps hand fundraising specialist 5/5 bilaterally hip flex plantar flex ext 5/5 Results & Data Laboratory Results Abnormal lab results 05/09/18 05/09/18 05/09/18 Range/Units 22:36 22:58 22:58 WBC 14.51 H (4.8-10.8) K/uL RBC 4.09 L (4.2-5.4) M/uL Hgb 11.0 L (12.0-16.0) g/dL Hct 34.1 L (37-47) % MCHC (32-36) g/dL RDW Std Deviation 47.8 H (36.4-46.3) fL RDW Coeff of Cain 15.6 H (11.5-14.5) % Immature Gran # (Auto) 0.07 H (0.00-0.02) K/uL Neut # (Auto) 12.03 H (1.4-6.5) K/uL Lymph # (Auto) 0.99 L (1.2-3.4) K/uL [place] # (Auto) 1.15 H (0.11-0.59) K/uL PT 12.6 H (9.0-12.0) Seconds INR 1.2 H (0.9-1.1) BUN (7-18) mg/dl Creatinine (0.6-1.2) mg/dl Glucose (70-99) mg/dl POC Glucose 115 H (70-99) Hemoglobin A1c (4.5-5.6) % Lactate (0.4-2.0) mmol/L Calcium (8.5-10.1) mg/dl AST (15-37) U/L Albumin (3.4-5.0) gm/dl Globulin (2.5-4.0) gm/dl Albumin/Globulin Ratio (0.9-2) Urine Blood (Negative) Ur Leukocyte Esterase (Negative) Urine WBC (Auto) (0-5) /hpf U Hyaline Cast (Auto) (0-5) /lpf U Epithel Cells (Auto) (0-5) /lpf Urine Bacteria (Auto) (Negative) Calcium Oxalate Crystal (None Prsent) Urine Yeast (None Prsent) 05/09/18 05/09/18 05/09/18 Range/Units 22:58 22:58 23:37 WBC (4.8-10.8) K/uL RBC (4.2-5.4) M/uL Hgb (12.0-16.0) g/dL Hct (37-47) % MCHC (32-36) g/dL RDW Std Deviation (36.4-46.3) fL RDW Coeff of Cain (11.5-14.5) % Immature Gran # (Auto) (0.00-0.02) K/uL Neut # (Auto) (1.4-6.5) K/uL Lymph # (Auto) (1.2-3.4) K/uL [place] # (Auto) (0.11-0.59) K/uL PT (9.0-12.0) Seconds INR (0.9-1.1) BUN 20 H (7-18) mg/dl Creatinine 1.38 H (0.6-1.2) mg/dl Glucose 136 H (70-99) mg/dl POC Glucose (70-99) Hemoglobin A1c (4.5-5.6) % Lactate 2.3 H* (0.4-2.0) mmol/L Calcium 8.3 L (8.5-10.1) mg/dl AST 11 L (15-37) U/L Albumin 2.9 L (3.4-5.0) gm/dl Globulin 4.3 H (2.5-4.0) gm/dl Albumin/Globulin Ratio 0.7 L (0.9-2) Urine Blood Trace H (Negative) Ur Leukocyte Esterase 1+ H (Negative) Urine WBC (Auto) 10-30 H (0-5) /hpf U Hyaline Cast (Auto) 10-30 H (0-5) /lpf U Epithel Cells (Auto) >30 H (0-5) /lpf Urine Bacteria (Auto) 2+ H (Negative) Calcium Oxalate Crystal Present H (None Prsent) Urine Yeast Budding H (None Prsent) 05/10/18 05/10/18 05/10/18 Range/Units 06:04 06:04 06:04 WBC 13.19 H (4.8-10.8) K/uL RBC 3.75 L (4.2-5.4) M/uL Hgb 9.8 L (12.0-16.0) g/dL Hct 31.2 L (37-47) % MCHC 31.4 L (32-36) g/dL RDW Std Deviation 47.4 H (36.4-46.3) fL RDW Coeff of Cain 15.6 H (11.5-14.5) % Immature Gran # (Auto) 0.04 H (0.00-0.02) K/uL Neut # (Auto) 10.39 H (1.4-6.5) K/uL Lymph # (Auto) (1.2-3.4) K/uL [place] # (Auto) 1.03 H (0.11-0.59) K/uL PT 12.8 H (9.0-12.0) Seconds INR 1.3 H (0.9-1.1) BUN (7-18) mg/dl Creatinine (0.6-1.2) mg/dl Glucose (70-99) mg/dl POC Glucose (70-99) Hemoglobin A1c 5.8 H (4.5-5.6) % Lactate (0.4-2.0) mmol/L Calcium (8.5-10.1) mg/dl AST (15-37) U/L Albumin (3.4-5.0) gm/dl Globulin (2.5-4.0) gm/dl Albumin/Globulin Ratio (0.9-2) Urine Blood (Negative) Ur Leukocyte Esterase (Negative) Urine WBC (Auto) (0-5) /hpf U Hyaline Cast (Auto) (0-5) /lpf U Epithel Cells (Auto) (0-5) /lpf Urine Bacteria (Auto) (Negative) Calcium Oxalate Crystal (None Prsent) Urine Yeast (None Prsent) 05/10/18 Range/Units 06:04 WBC (4.8-10.8) K/uL RBC (4.2-5.4) M/uL Hgb (12.0-16.0) g/dL Hct (37-47) % MCHC (32-36) g/dL RDW Std Deviation (36.4-46.3) fL RDW Coeff of Cain (11.5-14.5) % Immature Gran # (Auto) (0.00-0.02) K/uL Neut # (Auto) (1.4-6.5) K/uL Lymph # (Auto) (1.2-3.4) K/uL [place] # (Auto) (0.11-0.59) K/uL PT (9.0-12.0) Seconds INR (0.9-1.1) BUN (7-18) mg/dl Creatinine (0.6-1.2) mg/dl Glucose 103 H (70-99) mg/dl POC Glucose (70-99) Hemoglobin A1c (4.5-5.6) % Lactate (0.4-2.0) mmol/L Calcium 7.9 L (8.5-10.1) mg/dl AST (15-37) U/L Albumin (3.4-5.0) gm/dl Globulin (2.5-4.0) gm/dl Albumin/Globulin Ratio (0.9-2) Urine Blood (Negative) Ur Leukocyte Esterase (Negative) Urine WBC (Auto) (0-5) /hpf U Hyaline Cast (Auto) (0-5) /lpf U Epithel Cells (Auto) (0-5) /lpf Urine Bacteria (Auto) (Negative) Calcium Oxalate Crystal (None Prsent) Urine Yeast (None Prsent) Diagnostic Findings TTE EF 60-65%, no ASD carotid doppler- Atherosclerosis. 50-69% stenosis in the right internal carotid artery. 16-49% stenosis of the left internal carotid artery. CT head-No significant change compared to the prior study. No acute intracranial abnormality. 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 CXR- No focal lung consolidations to suggest pneumonia. No evidence for pulmonary edema. Small left basilar linear density favors atelectasis or scarring. This remains unchanged. Cardiac silhouette remains mildly enlarged. No pleural effusions. No pneumothorax. MRI brain- Acute infarction of the periventricular medial right occipital lobe measures up to 1.4 x 1.7 cm. Acute to subacute appearing infarction of the superior right cerebellar hemisphere is noted measuring up to 1.3 cm. No midline shift, hydrocephalus or intracranial hemorrhage. Age-related involutional changes with chronic microvascular ischemic changes. Encephalomalacia and gliosis about a remote right MCA distribution infarct. Indeterminate area of decreased T1 marrow signal about the right frontal calvarium measures up to 1.4 cm. Benign and malignant etiologies are within the differential. A follow-up nonemergent bone scan could be considered.
--- NOTE | 2018-05-10 15:45 | Procedure Note ---
EEG Procedure Note Date of Service May 10, 2018 Start / End Times Start Time: 0800 End Time: 0830 Referring Physician Wilbert Ludwig MD History Transient confusion with history of right middle cerebral artery CVA question delayed post CVA seizure Home Medication List Home Medications Medication Instructions Recorded Confirmed Type amlodipine 10 mg PO QAM 03/05/18 05/09/18 History atorvastatin 10 mg PO QPM 03/05/18 05/09/18 History calcium carbonate-vitamin D3 1 tab PO TIDM 03/05/18 05/09/18 History clopidogrel 75 mg PO QAM 03/05/18 05/09/18 History docusate sodium [Colace] 100 mg PO BID PRN 03/05/18 05/09/18 History furosemide 20 mg PO BID 03/05/18 05/09/18 History levothyroxine 25 mcg PO QAM 03/05/18 05/10/18 History lisinopril 40 mg PO QAM 03/05/18 05/09/18 History metoprolol tartrate 12.5 mg PO BID 03/05/18 05/09/18 History pantoprazole 40 mg PO QAM 03/05/18 05/09/18 History sertraline 25 mg PO HS 03/05/18 05/09/18 History albuterol sulfate [ProAir HFA] 2 puff INHALATION Q4H PRN 05/09/18 05/09/18 History fluticasone propionate 2 spry INTRANASAL DAILY PRN 05/09/18 05/09/18 History loratadine 10 mg PO DAILY PRN 05/09/18 05/09/18 History nystatin 1 applic TOPICAL BID PRN 05/09/18 05/09/18 History polymyxin B sulf-trimethoprim 1 drp OPL UD 05/09/18 05/09/18 History Inpatient Medication List Amlodipine Besylate (Norvasc) 10 mg PO QAM CURLY Stop: 06/09/18 08:59 Last Admin: 05/10/18 08:20 Dose: 10 mg Documented by: [id number] Clopidogrel Bisulfate (Plavix) 75 mg PO QAM CURLY Stop: 06/09/18 08:59 Last Admin: 05/10/18 08:21 Dose: 75 mg Documented by: [id number] Heparin Sodium (Porcine) (Heparin Sodium (Porcine)) 5,000 units SQ Q12 CURLY Stop: 06/09/18 08:59 Last Admin: 05/10/18 08:19 Dose: 5,000 units Documented by: [id number] Cosigned by: [id number] Levothyroxine Sodium (Synthroid) 25 mcg PO DAILYBB [facility] Stop: 06/09/18 06:29 Last Admin: 05/10/18 05:56 Dose: 25 mcg Documented by: [id number] Metoprolol Tartrate (Lopressor) 12.5 mg PO BID CURLY Stop: 06/09/18 08:59 Last Admin: 05/10/18 08:20 Dose: 12.5 mg Documented by: [id number] Pantoprazole Sodium (Protonix) 40 mg PO QAM CURLY Stop: 06/09/18 08:59 Last Admin: 05/10/18 08:19 Dose: 40 mg Documented by: [id number] Discontinued Medications Lactated Ringer's (Lr) 1,000 mls @ 125 mls/hr IV .Q8H [facility] Stop: 05/10/18 11:38 Last Infusion: 05/10/18 12:30 Dose: 0 mls/hr Documented by: [id number] Admin: 05/10/18 04:26 Dose: 125 mls/hr Documented by: [id number] Description This is a 21 electrode EEG with a single channel dedicated to limited EKG. The electrodes were placed in accordance with the International 10-20 system. This EEG was done as a bedside recording and is of good technical quality. A simultaneous video analysis of patient movement and behavior was obtained. Photic stimulation was performed. Drowsiness and light sleep are not recorded Under these conditions there is evidence for normal-appearing background rhythm in the alpha range of up to 10 Hz maximum frequency of up to 20 V of maximal amplitude. This activity is maximum posterior head regions and bilaterally symmetrical polymorphic mid frequency moderate voltage theta activity seen over the central regions in a symmetrical fashion beta activity is seen bifrontally Photic stimulation provokes no significant driving response No time is or evidence for potentially epileptogenic activity of oral polyspike and spike-wave burst, focal sharp waves or focal spikes Interpretation This is a normal EEG during wakefulness revealing no evidence for focal or generalized encephalopathy and for potentially epileptogenic activity Clinical Correlation Normal EEG failing to reveal evidence for focal slowing or epileptogenic activity. Wilbert Ludwig MD
--- NOTE | 2018-05-10 15:56 | Hospitalist Progress Note ---
Date of Service May 10, 2018 Assessment & Plan (1) Stroke-like symptoms: Patient presented with confusion and weakness of left upper extremity on 05/09/[address] on 05/09/18 demonstrates old right MCA infarct, small vessel ischemic changes, no acute findings. TPA was not indicated because of duration of symptoms and improving neuro status; Passed dysphagia screen in ED. Allergic to aspirin. Continue antiplatelet therapy with clopidogrel. EEG no evidence for potentially epileptogenic activity originating from the old right middle cerebral artery distribution infarct Patient's MRI brain on 05/10/18 confirmed initial impressions that she had stroke at home 1. Acute infarction of the periventricular medial right occipital lobe measures up to 1.4 x 1.7 cm. 2. Acute to subacute appearing infarction of the superior right cerebellar hemisphere is noted measuring up to 1.3 cm. 3. No midline shift, hydrocephalus or intracranial hemorrhage. 4. Age-related involutional changes with chronic microvascular ischemic changes. Encephalomalacia and gliosis about a remote right MCA distribution infarct. 5. Indeterminate area of decreased T1 marrow signal about the right frontal calvarium measures up to 1.4 cm. Neurology has ordered Head/Neck MRA continue telemetry monitoring and Plavix for now as per neurology recommendations (2) Fever: Low-grade fever at home with occasional cough and loose stools. White count 14,510 on admission Does not meet criteria for sepsis and does not appear to be septic clinically. No infiltrates on chest x-ray on admission Flu negative and C. difficile negative Urinalysis shows WBCs, bacteria, and yeast, but many epithelial cells on admission will repeat urinalysis (3) HTN (hypertension): blood pressure is controlled at this time continue metoprolol. Hold lisinopril for now (4) Dyslipidemia: optimize HTN, HLD, DM LDL <70 Patient's LDL is 50 and therefore the target LDL is at goal Continue atorvastatin 10 mg daily (5) CKD (chronic kidney disease) stage 3, GFR 30-59 ml/min: Chronic kidney disease stage III with baseline creatinine around 1.1. Acute kidney Injury on chronic CKD stage III on admission as the admission creatinine 1.38 after IV fluids and Lasix held, the follow up creatine is 1.1 and RORO has resolved will resuming oral Lasix home dose starting on 05/11/18 (6) Hypothyroidism: Continue levothyroxine History of asthma has albuterol sulfate inhaler as home medication will place on nebulizer treatment q6h prn as needed for shortness of breath or wheezing (7) DVT prophylaxis: Moderate risk for VTE. SQ heparin. (8) Discharge planning issues: Continue PT/OT evaluations while inpatient Subjective Patient seen and examined after MRI of the brain. Patient appears to be moving all extremities without significant weakness on either side while sitting on wheelchair. Patient denies chest pain or shortness of breath. denies abdominal pain. Patient's MRI brain on 05/10/18 confirmed initial impressions that she had stroke at home Physical Exam Vital Signs (Past 24 Hours): Last Vital Signs Temp 37.0 C 05/10/18 15:28 Pulse 73 05/10/18 15:33 Resp 16 05/10/18 15:28 BP 146/71 H 05/10/18 15:28 Pulse Ox 94 05/10/18 15:28 Physical Exam: WD/WN, vitals as above no acute distress Eyes: PERRL, conjunctivae normal, anicteric sclerae ENMT: external ear and nose normal Neck: trachea midline, no thyromegaly Respiratory: no respiratory distress Auscultation: + wheezes (mild) Cardiovascular: Rate/Rhythm: regular rate Heart Sounds: no gallop, no murmur a nd no cardiac rub Vessels: normal peripheral pulses; no JVD Extremities: normal capillary refill and + edema (trace pretibial); no calf tenderness Gastrointestinal (Abdomen): normal bowel sounds, soft, nontender, no hepatosplenomegaly Musculoskeletal/ Neurologic: PERRL, EOMI no facial palsy no dysarthria or aphasia Patient appears to be moving all extremities without significant weakness on eit her side while sitting on wheelchair. (1) Fever Fever type: unspecified Qualified Code(s): R50.9 - Fever, unspecified
[2018-05-10] MEDS ORDERED: ALBUTEROL 0.5% NEB SOLN 2.5 MG/0.5 ML VIAL NEB PRN (16:14)
[2018-05-10] MEDS ORDERED: GADOBUTROL 65ML VIAL IV PRN (16:45)
--- NOTE | 2018-05-10 17:01 | Magnetic Resonance Report ---
NECK CTA HISTORY: Right-sided stroke. TECHNIQUE: Multiaxial CT images of the neck were performed following the intravenous administration o f contrast to evaluate the major cervical vessels. Maximum intensity projection images were also obta ined. All measurements were calculated based on NASCET criteria. A dose lowering technique was utili zed adhering to the principles of ALARA. COMPARISON STUDY: Carotid Doppler 05/10/2018. FINDINGS: Suboptimal evaluation of the cervical vessels due to the significant motion artifact. The a ortic arch appears be normal in caliber. The proximal great vessels, proximal common carotid arteries , and proximal vertebral arteries are essentially nondiagnostic due to motion artifact. There is also focal motion artifact within the proximal to mid right internal carotid artery resulting in difficul t evaluation. However, there is no evidence for high-grade stenosis or occlusion within the visualize d carotid or vertebral arteries within the limitations of this examination. IMPRESSION: There are is no evidence for high-grade stenosis or occlusion within the visualized carotid or verteb ral arteries within the limitations of this examination. Electronically signed by: Luis Nelson M.D. 05/10/2018 5:00 PM
--- NOTE | 2018-05-10 18:25 | Magnetic Resonance Report ---
MRA OF THE INTRACRANIAL CIRCULATION WITHOUT CONTRAST CLINICAL HISTORY: Stroke in posterior circulation. COMPARISON STUDY: MRA of the head June 11, 2015. TECHNIQUE: Utilizing a 1.5 Isabella magnet and 3-D [id number] technique, unenhanced MRA of the intra cranial circulation was obtained. FINDINGS: The bilateral M1, M2, A1 and A2 segments are patent. No abrupt cutoff within the anterior i ntracranial circulation is present. There is no intracranial aneurysm. There is no dissection within the major intracranial vessels. The right vertebral artery is diminutive. This is unchanged since MRA of June 11, 2015. The left vertebral artery and basilar artery are patent. The left posterior cerebral artery is patent. There is apparent cutoff of a branch of the right posterior cerebral artery shown best on axial image 117 of 200. This would account for the stroke shown on head CT of May 11, 2018. IMPRESSION: 1. Probable abrupt cut off of a branch of the right posterior cerebral artery which would account for the acute right [employer] distribution infarct shown on MRI of May 10, 2018. 2. Otherwise, no significant change since MRA of June 11, 2015. Electronically signed by: Erik Vera M.D. 05/10/2018 6:23 PM
[2018-05-10] MEDS ORDERED: SERTRALINE HCL 50 MG TABLET PO SCH (21:00)
[2018-05-10] MEDS ORDERED: ATORVASTATIN 10 MG TAB PO SCH (21:00)
[2018-05-11] MEDS: LEVOTHYROXINE SODIUM 25 MCG TABLET PO SCH (05:47)
[2018-05-11 07:16] LABS: Basophils # (auto) 0.02 K/uL (0-0.2); Basophils % (auto) 0.2 %; Eosinophils # (auto) 0.41 K/uL (0-0.5); Eosinophils % (auto) 3.6 %; Hematocrit (blood only) 31.7 % (37-47); Immature Granulocytes # (auto) 0.03 K/uL (0.00-0.02); Immature Granulocytes % (auto) 0.3 %; Lymphocytes # (auto) 1.69 K/uL (1.2-3.4); Lymphocytes % (auto) 14.9 %; Mean Corpuscular Hgb Conc 31.5 g/dL (32-36); Mean Corpuscular Volume 83.9 fL (80-100); Mean Platelet Volume 9.4 fL (7.4-10.4); Monocytes # (auto) 1.16 K/uL (0.11-0.59); Monocytes % (auto) 10.2 %; Neutrophils # (auto) 8.06 K/uL (1.4-6.5); Neutrophils % (auto) 70.8 %; Platelet Count 285 K/uL (130-400); RDW Coefficient of Variation 15.7 % (11.5-14.5); RDW Standard Deviation 48.4 fL (36.4-46.3); Red Blood Count 3.78 M/uL (4.2-5.4); White Blood Count 11.37 K/uL (4.8-10.8)
[2018-05-11 07:32] LABS: Calcium 8.2 mg/dl (8.5-10.1); Creatinine Clr Calc Pharmacy 37.8 ml/min; Est GFR (African American) 54.6; Est GFR (Non-African American) 47.1; Potassium 4.2 mmol/L (3.5-5.1)
[2018-05-11] MEDS: HEPARIN SOD 5,000 UNIT/0.5 ML VIAL SQ SCH (08:52)
[2018-05-11] MEDS: METOPROLOL TARTRATE 25 MG TAB PO SCH (08:53)
[2018-05-11] MEDS: CLOPIDOGREL BISULFATE 75 MG TAB PO SCH (08:53)
[2018-05-11] MEDS: FUROSEMIDE 20 MG TAB PO SCH ×2 (08:53→16:31)
[2018-05-11] MEDS: PANTOprazole 40 MG TAB PO SCH (08:53)
[2018-05-11] MEDS: AMLODIPINE BESYLATE 5 MG TAB PO SCH (08:54)
--- NOTE | 2018-05-11 14:50 | Neurology Progress Note ---
Date of Service May 11, 2018 Assessment & Plan (1) Acute CVA (cerebrovascular accident): 1. MRI with acute periventricular medial right occipital lobe and subacute infract right cerebellar hemisphere, also noted T1 marrow signal change in calverium 2. TTE- no ASD 3. carotid - right ICA 50-69% stenosis 4. plavix 75 mg home med, aspirin allergy can not start dual antiplt therapy will need to discuss 5. optimize HTN, HLD, DM LDL <70 - consider patient age 6. PT/OT speech for any discharge needs 7. MRA head and neck to evaluate posterior circulation vessels 8. will need ZIO as outpatient or cardio net which was done after stroke in 04/2015 Supervising Physician Co-Signing Physician Notes I have seen and discussed above patient with Dr Wilbert Ludwig, neurology I saw Mr. Eng briefly today. She is being discharged to home. He apparently is very close to her baseline although is likely to be a little confused with her nondominant hemispheric medial occipital infarction and her ipsilateral cerebellar infarction currently she is on her chronic Plavix therapy. She is aspirin intolerant so we cannot use a dual platelet standard algorithm This issue may be academic as she is now had clear evidence for embolic infarctions into cerebral circulations over the past 4 years candidate for cardiogenic embolization and specifically for paroxysmal atrial fibrillation. We will be seeing her in follow-up, arrange for an outpatient ZIO patch and proceed from there but her ambulatory status, advanced age etc. really may come into play if we have to elect to go with Coumadin or novel anticoagulant in this setting. Wilbert Ludwig MD Jan Jonas is a 82 year old female who has a PMH CVD, HTN, hypothyroid, CKD III, HLD, OA, anemia. She had a low grade fever for the past few days and a productive cough, and several loose stools. Around 1700 she was confused and had some hallucinations then developed left UE weakness. She was brought to the ED for further evaluation. Her blood pressure was elevated on admission, no fever. 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 A stroke alert was called but no TPA was recommended. She is on plavix no aspirin due to a aspirin allergy which she states cause swelling. She is ready to go home. No a fib on telemetry. denies CP, SOB, abdominal pain, one sided weakness, numbness tingling, N, V, slurred speech, swallowing difficulties. 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
[2018-05-11 15:54] LABS: Appearance Urine Clear (Clear); Bacteria Urine Automated Negative (Negative); Bilirubin Urine Negative (Negative); Blood Urine 1+ (Negative); Cast Urine Automated 0 /lpf (0-5); Color Urine Yellow; Glucose Urine UA Negative (Negative); Ketones Urine Negative (Negative); Leukocyte Esterase Urine Negative (Negative); Nitrite Urine Negative (Negative); Protein Urine Negative (Negative); RBC Urine Automated 0-4 /hpf (0-4); Specific Gravity Urine 1.013 (1.000-1.030); Urobilinogen Urine Negative (Negative)
[2018-05-11] MEDS ORDERED: LISINOPRIL 40 MG TAB PO SCH (16:15)
--- NOTE | 2018-05-11 16:19 | Hospitalist Progress Note ---
Date of Service May 11, 2018 Assessment & Plan (1) Stroke-like symptoms: Patient presented with confusion and weakness of left upper extremity on 05/09/18 from home Acute CVA (cerebrovascular accident) MRI with acute periventricular medial right occipital lobe and subacute infract right cerebellar hemisphere Head CT on 05/09/18 demonstrates old right MCA infarct, small vessel ischemic changes, no acute findings. TPA was not indicated because of duration of symptoms and improving neuro statu s; Passed dysphagia screen in ED. Allergic to aspirin. Continue antiplatelet therapy with clopidogrel. EEG no evidence for potentially epileptogenic activity originating from the old right middle cerebral artery distribution infarct Patient's MRI brain on 05/10/18 confirmed initial impressions that she had stroke at home 1. Acute infarction of the periventricular medial right occipital lobe measures up to 1.4 x 1.7 cm. 2. Acute to subacute appearing infarction of the superior right cerebellar hemisphere is noted measuring up to 1.3 cm. 3. No midline shift, hydrocephalus or intracranial hemorrhage. 4. Age-related involutional changes with chronic microvascular ischemic changes. Encephalomalacia and gliosis about a remote right MCA distribution infarct. 5. Indeterminate area of decreased T1 marrow signal about the right frontal calvarium measures up to 1.4 cm. Head/Neck MRA did not find deficits in the posterior circulation carotid ultrasoound - right ICA 50-69% stenosis Transthhoracic Echocardiogram with no Atrial septal defects No arrythmias detected on telemetry monitoring Neurology service to arrange for ZIO patch to continue monitoring heart rate and rhythm as outpatient Because patient has aspirin allergy, patient should continue clopidogrel 75 mg daily home medication at this time as advised by neurology service Patient's LDL is 50 and therefore the target LDL is at goal of less than 70 as per neurology service Because patient has good lipid profile, patient should continue atorvastatin 10 mg daily at this time Patient passed the physical therapy evaluations and with no neurological symptoms on discharge day and can return home with clinic appointments (2) Fever: Low-grade fever at home with occasional cough and loose stools. White count 14,510 on admission Does not meet criteria for sepsis and does not appear to be septic clinically. No infiltrates on chest x-ray on admission Flu negative and C. difficile negative admission Urinalysis shows WBCs, bacteria, and yeast, but many epithelial cells on admission repeat urinalysis on 05/11/18 with no bacteria WBC is downtrending and patient afebrile during course of hospital admission (3) HTN (hypertension): continue metoprolol. resumed lisinopril (4) Dyslipidemia: Patient's LDL is 50 and therefore the target LDL is at goal Continue atorvastatin 10 mg daily (5) CKD (chronic kidney disease) stage 3, GFR 30-59 ml/min: Chronic kidney disease stage III with baseline creatinine around 1.1. Acute kidney Injury on chronic CKD stage III on admission as the admission creatinine 1.38 after IV fluids and Lasix held, the follow up creatine is 1.1 and RORO has resolved resumed oral Lasix home dose starting on 05/11/18 05/12/18 continue Lasix and lisinopril (6) Hypothyroidism: Continue levothyroxine History of asthma has albuterol sulfate inhaler as home medication (7) DVT prophylaxis: subcutaneous heparin while inpatient (8) Discharge planning issues: Continue PT/OT evaluations while inpatient Discharge Diagnosis Acute CVA (cerebrovascular accident) MRI with acute periventricular medial right occipital lobe and subacute infract right cerebellar hemisphere, Hypertension, Acute Kidney Injury resolved, Chronic Kidney Disease stage III Discharge Instructions Discharge to Home Neurology service to arrange for ZIO patch to continue monitoring heart rate and rhythm as outpatient Because patient has aspirin allergy, patient should continue clopidogrel 75 mg daily home medication at this time Because patient has good lipid profile, patient should continue atorvastatin 10 mg daily at this time Patient passed the physical therapy evaluations and with no neurological symptoms on discharge day and can return home with clinic appointments Other appointments with 05/15/2018 1:00 PM Provider Cathleen Infante DO Department [facility] 05/25/2018 8:40 AM Provider Hansa Rivera PA-C Department Neurology [facility] 05/31/2018 1:20 PM Provider Libertad Marsh DPM Department Podiatry [facility] Risk Factors for Stroke: You can reduce your chances of stroke by working with your medical provider to adopt a healthy lifestyle. Some specific ways to lower your chance of stroke are: * If you are a smoker, now is the time to stop smoking cigarettes * If you are diabetic, improve the control of your blood sugars * Avoid excessive amounts of alcohol * Control high blood pressure * Lose weight if you are overweight * Be sure to lead an active lifestyle * Eat a healthy diet low in salt, cholesterol and fat You should know about other risk factors for stroke that you are unable to control. These include: * Age 55 years or older * Male gender * Certain racial groups: , or / * Family History of Stroke, Mini stroke or Heart Attack * Sickle Cell Disease Follow Up: It is important for you to keep your follow up appointments with your medical provider. Who to Call and When: Medical Emergencies: Call 911 immediately if you experience any of the following warning signs and symptoms of Stroke: * Sudden numbness or weakness of the face, arm or leg, especially on one side of the body * Sudden confusion, trouble speaking or understanding * Sudden trouble seeing in one or both eyes * Sudden trouble walking, dizziness, loss of balance or coordination * Sudden severe headache with no cause Do not delay calling 911 if you experience any warning signs or symptoms of a stroke. Delay in seeking medical attention may affect what treatments can be given to you. . Subjective Patient continues to be moving all extremities without significant weakness on either side. Physical therapy and neurology service recommend discharge to home. Patient denies chest pain or shortness of breath. denies abdominal pain. Physical Exam Vital Signs (Past 24 Hours): Last Vital Signs Temp 37 C 05/11/18 14:44 Pulse 94 H 05/11/18 16:01 Resp 16 05/11/18 14:44 BP 152/66 H 05/11/18 14:44 Pulse Ox 95 05/11/18 14:44 Constitutional: WD/WN, vitals as above Eyes: PERRL, conjunctivae normal, anicteric sclerae + eyes dysmorphic ENMT: external ear and nose normal, oropharynx normal Neck: trachea midline, no thyromegaly normal visual inspection Respiratory: normal respiratory effort, lungs clear to auscultation Cardiovascular: RRR, no murmur, no edema Gastrointestinal (Abdomen): normal bowel sounds, soft, nontender, no hepatosplenomegaly Musculoskeletal: no cyanosis or clubbing, extremities motor strength 5/5 Head/Neck/Chest: normocephalic and head atraumatic Neurologic: PERRL, EOMI, accommodation nl, no face palsy, no dysarthria CN's II-XI intact bilaterally Psychiatric: Orientation: alert and cooperative (1) Fever Fever type: unspecified Qualified Code(s): R50.9 - Fever, unspecified
[2018-05-11] MEDS ORDERED: STROKE PATIENT DISCHARGE STA (16:23)
--- NOTE | 2018-05-11 16:33 | Discharge Summary ---
Date of Service May 11, 2018 Admission HPI Per Admitting Provider 82-year-old female followed by Dr. Infante. History of cerebrovascular disease, hypertension, and other problems noted below. She lives at home with the assistance of her family. Ambulatory with a walker. She has had a low-grade fever for the past few days. Occasional nonproductive cough. Has had several loose stools. No urinary symptoms. This evening her family noted that she seemed to be confused and hallucinating around 1700. Later she developed weakness of her left upper extremity. She was brought to the ED for evaluation. By the time she arrived, left upper extremity weakness had improved significantly. Head CT showed an old right MCA stroke, periventricular small vessel disease, no acute events. Telestroke consultation was obtained with [facility]. TPA was not recommended because of duration of symptoms and improvement of deficits. Admission Exam Per Admitting Provider Constitutional: WD/WN, vitals as above no acute distress Eyes: PERRL, conjunctivae normal, anicteric sclerae ENMT: external ear and nose normal, oropharynx normal Ears: + hearing impairment Mouth: + dentures Neck: trachea midline, no thyromegaly Respiratory: no respiratory distress Auscultation: + wheezes (mild, diffuse) Cardiovascular: Rate/Rhythm: regular rate Heart Sounds: no gallop, no murmur and no cardiac rub Vessels: normal peripheral pulses; no JVD Extremities: normal capillary refill and + edema (trace pretibial); no calf tenderness Gastrointestinal (Abdomen): normal bowel sounds, soft, nontender, no hepatosplenomegaly Musculoskeletal: Head/Neck/Chest: neck supple Extremities: + abnormal strength (mild weakness LUE), no cyanosis and no clubbing Skin: no rashes, warm and dry + nail abnormality (toenails thickened, elongated); no erythema and no pallor Neurologic: PERRL, EOMI no facial palsy no dysarthria or aphasia mild LUE weakness patellar DTR's 1/2 bilat plantar reflexes equivocal bilat Psychiatric: Orientation: alert, oriented to person and oriented to place; + not oriented to time Affect: euthymic affect Lymphatic: no cervical lymphadenopathy Principal Diagnosis Acute CVA (cerebrovascular accident) MRI with acute periventricular medial right occipital lobe and subacute infract right cerebellar hemisphere, Hypertension, Acute Kidney Injury resolved, Chronic Kidney Disease stage III Discharge Exam Constitutional WD/WN, vitals as above Eyes PERRL, conjunctivae normal, anicteric sclerae EOM intact bilaterally ENMT external ear and nose normal, oropharynx normal Neck trachea midline, no thyromegaly normal visual inspection Respiratory normal respiratory effort, lungs clear to auscultation Cardiovascular RRR, no murmur, no edema Gastrointestinal (Abdomen) normal bowel sounds, soft, nontender, no hepatosplenomegaly Musculoskeletal no cyanosis or clubbing, extremities motor strength 5/5 Head/Neck/Chest: normocephalic and head atraumatic Neurologic PERRL, EOMI, accommodation nl, no face palsy, no dysarthria CN's II-XI intact bilaterally Psychiatric Orientation: alert and cooperative Discharge Data Allergies Allergy/AdvReac Type Severity Reaction Status Date / Time aspirin Allergy Severe ANAPHYLAXIS, Verified 05/09/18 23:07 SWELLING Consultations 05/10/18 00:33 ED Decision to Admit Stat 05/10/18 03:39 Consult Case Management - Discharge Planning Routine 05/10/18 04:14 Consult Neurology Routine Ordered Studies 05/09/18 22:33 CT head/brain wo con Stat 05/10/18 03:39 MR brain wo con Routine US carotid doppler BI Routine 05/10/18 15:00 MR angio head wo con Routine 05/10/18 15:54 MR angio neck wo/w con Routine Hospital Course (1) Stroke-like symptoms: Patient presented with confusion and weakness of left upper extremity on 05/09/18 from home Acute CVA (cerebrovascular accident) MRI with acute periventricular medial right occipital lobe and subacute infract right cerebellar hemisphere Head CT on 05/09/18 demonstrates old right MCA infarct, small vessel ischemic changes, no acute findings. TPA was not indicated because of duration of symptoms and improving neuro status; Passed dysphagia screen in ED. Allergic to aspirin. Continue antiplatelet therapy with clopidogrel. EEG no evidence for potentially epileptogenic activity originating from the old right middle cerebral artery distribution infarct Patient's MRI brain on 05/10/18 confirmed initial impressions that she had stroke at home 1. Acute infarction of the periventricular medial right occipital lobe measures up to 1.4 x 1.7 cm. 2. Acute to subacute appearing infarction of the superior right cerebellar hemisphere is noted measuring up to 1.3 cm. 3. No midline shift, hydrocephalus or intracranial hemorrhage. 4. Age-related involutional changes with chronic microvascular ischemic changes. Encephalomalacia and gliosis about a remote right MCA distribution infarct. 5. Indeterminate area of decreased T1 marrow signal about the right frontal calvarium measures up to 1.4 cm. Head/Neck MRA did not find deficits in the posterior circulation carotid ultrasoound - right ICA 50-69% stenosis Transthhoracic Echocardiogram with no Atrial septal defects No arrythmias detected on telemetry monitoring Neurology service to arrange for ZIO patch to continue monitoring heart rate and rhythm as outpatient Because patient has aspirin allergy, patient should continue clopidogrel 75 mg daily home medication at this time as advised by neurology service Patient's LDL is 50 and therefore the target LDL is at goal of less than 70 as per neurology service Because patient has good lipid profile, patient should continue atorvastatin 10 mg daily at this time Patient passed the physical therapy evaluations and with no neurological symptoms on discharge day and can return home with clinic appointments (2) Fever: Low-grade fever at home with occasional cough and loose stools. White count 14,510 on admission Does not meet criteria for sepsis and does not appear to be septic clinically. No infiltrates on chest x-ray on admission Flu negative and C. difficile negative admission Urinalysis shows WBCs, bacteria, and yeast, but many epithelial cells on admission repeat urinalysis on 05/11/18 with no bacteria WBC is downtrending and patient afebrile during course of hospital admission (3) HTN (hypertension): continue metoprolol. resumed lisinopril (4) Dyslipidemia: Patient's LDL is 50 and therefore the target LDL is at goal Continue atorvastatin 10 mg daily (5) CKD (chronic kidney disease) stage 3, GFR 30-59 ml/min: Chronic kidney disease stage III with baseline creatinine around 1.1. Acute kidney Injury on chronic CKD stage III on admission as the admission creatinine 1.38 after IV fluids and Lasix held, the follow up creatine is 1.1 and RORO has resolved resumed oral Lasix home dose starting on 05/11/18 05/12/18 continue Lasix and lisinopril (6) Hypothyroidism: Continue levothyroxine History of asthma has albuterol sulfate inhaler as home medication (7) DVT prophylaxis: subcutaneous heparin while inpatient (8) Discharge planning issues: Continue PT/OT evaluations while inpatient Discharge Diagnosis Acute CVA (cerebrovascular accident) MRI with acute periventricular medial right occipital lobe and subacute infract right cerebellar hemisphere, Hypertension, Acute Kidney Injury resolved, Chronic Kidney Disease stage III Discharge Instructions Discharge to Home Neurology service to arrange for ZIO patch to continue monitoring heart rate and rhythm as outpatient Because patient has aspirin allergy, patient should continue clopidogrel 75 mg daily home medication at this time Because patient has good lipid profile, patient should continue atorvastatin 10 mg daily at this time Patient passed the physical therapy evaluations and with no neurological symptoms on discharge day and can return home with clinic appointments Other appointments with 05/15/2018 1:00 PM Provider Cathleen Infante DO Department [facility] 05/25/2018 8:40 AM Provider Hansa Rivera PA-C Department Neurology [facility] 05/31/2018 1:20 PM Provider Libertad Marsh DPM Department Podiatry [facility] Risk Factors for Stroke: You can reduce your chances of stroke by working with your medical provider to adopt a healthy lifestyle. Some specific ways to lower your chance of stroke are: * If you are a smoker, now is the time to stop smoking cigarettes * If you are diabetic, improve the control of your blood sugars * Avoid excessive amounts of alcohol * Control high blood pressure * Lose weight if you are overweight * Be sure to lead an active lifestyle * Eat a healthy diet low in salt, cholesterol and fat You should know about other risk factors for stroke that you are unable to control. These include: * Age 55 years or older * Male gender * Certain racial groups: , or / * Family History of Stroke, Mini stroke or Heart Attack * Sickle Cell Disease Follow Up: It is important for you to keep your follow up appointments with your medical provider. Who to Call and When: Medical Emergencies: Call 911 immediately if you experience any of the following warning signs and symptoms of Stroke: * Sudden numbness or weakness of the face, arm or leg, especially on one side of the body * Sudden confusion, trouble speaking or understanding * Sudden trouble seeing in one or both eyes * Sudden trouble walking, dizziness, loss of balance or coordination * Sudden severe headache with no cause Do not delay calling 911 if you experience any warning signs or symptoms of a stroke. Delay in seeking medical attention may affect what treatments can be given to you. . Total Time Total Time Spent Total Time Spent (In Minutes): 40 minutes Total Time Includes: Examination of the Patient, Discharge Planning, Medication Reconciliation and 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 With Other Providers Discharge Plan Discharge Items Patient Disposition: Home - Self-Care Reason For Visit: STROKE-LIKE SYMPTOMS Discharge Diagnosis: Acute CVA (cerebrovascular accident) MRI with acute periventricular medial right occipital lobe and subacute infract right cerebellar hemisphere, Hypertension, Acute Kidney Injury resolved, Chronic Kidney Disease stage III Condition: Good Discharge Goals: Improve disease control Activity: Resume your previous activity Non-emergency contact: Primary Care Provider and Neurologist Call non-emergency contact if: you have any medication questions Follow-up/Referrals: Cathleen Infante [Primary Care Provider] - Diet: Heart Healthy Addtl Provider Instructions: Discharge to Home Neurology service to arrange for ZIO patch to continue monitoring heart rate and rhythm as outpatient Because patient has aspirin allergy, patient should continue clopidogrel 75 mg daily home medication at this time Because patient has good lipid profile, patient should continue atorvastatin 10 mg daily at this time Patient passed the physical therapy evaluations and with no neurological symptoms on discharge day and can return home with clinic appointments Other appointments with 05/15/2018 1:00 PM Provider Cathleen Infante DO Department [facility] 05/25/2018 8:40 AM Provider Hansa Rivera PA-C Department Neurology [facility] 05/31/2018 1:20 PM Provider Libertad Marsh DPM Department Podiatry [facility] Risk Factors for Stroke: You can reduce your chances of stroke by working with your medical provider to adopt a healthy lifestyle. Some specific ways to lower your chance of stroke are: * If you are a smoker, now is the time to stop smoking cigarettes * If you are diabetic, improve the control of your blood sugars * Avoid excessive amounts of alcohol * Control high blood pressure * Lose weight if you are overweight * Be sure to lead an active lifestyle * Eat a healthy diet low in salt, cholesterol and fat You should know about other risk factors for stroke that you are unable to control. These include: * Age 55 years or older * Male gender * Certain racial groups: , or / * Family History of Stroke, Mini stroke or Heart Attack * Sickle Cell Disease Follow Up: It is important for you to keep your follow up appointments with your medical provider. Who to Call and When: Medical Emergencies: Call 911 immediately if you experience any of the following warning signs and symptoms of Stroke: * Sudden numbness or weakness of the face, arm or leg, especially on one side of the body * Sudden confusion, trouble speaking or understanding * Sudden trouble seeing in one or both eyes * Sudden trouble walking, dizziness, loss of balance or coordination * Sudden severe headache with no cause Do not delay calling 911 if you experience any warning signs or symptoms of a stroke. Delay in seeking medical attention may affect what treatments can be given to you. Prescriptions: Continued loratadine 10 mg Tablet 10 mg PO DAILY PRN (Reason: Allergy Symptoms) RF: 0 fluticasone propionate 50 mcg/actuation spray,suspension 2 spry intranasal DAILY PRN (Reason: Allergy Symptoms) RF: 0 albuterol sulfate [ProAir HFA] 90 mcg/actuation Hfa Aerosol Inhaler 2 puff INHALATION Q4H PRN (Reason: Shortness Of Breath Or Wheezing) RF: 0 nystatin 100,000 unit/gram cream 1 applic topical BID PRN (Reason: Skin Irritation) RF: 0 polymyxin B sulf-trimethoprim 10,000 unit- 1 mg/mL drops 1 drp OPL UD RF: 0 atorvastatin 10 mg tablet 10 mg PO QPM RF: 0 clopidogrel 75 mg tablet 75 mg PO QAM RF: 0 levothyroxine 25 mcg tablet 25 mcg PO QAM RF: 0 amlodipine 10 mg tablet 10 mg PO QAM RF: 0 pantoprazole 40 mg tablet,delayed release (DR/EC) 40 mg PO QAM RF: 0 sertraline 25 mg tablet 25 mg PO HS RF: 0 lisinopril 40 mg tablet 40 mg PO QAM RF: 0 furosemide 20 mg tablet 20 mg PO BID RF: 0 metoprolol tartrate 25 mg tablet 12.5 mg PO BID RF: 0 docusate sodium [Colace] 100 mg Capsule 100 mg PO BID PRN (Reason: Constipation) RF: 0 calcium carbonate-vitamin D3 500 mg(1,250mg) -400 unit Tablet 1 tab PO TIDM RF: 0 Stand-Alone Forms: Medications to Prevent Stroke, [facility] Discharge Orders: Discharge Order (Routine); Ordered 05/11/18 Ordered By: Juan Lo Admission Data Admit Date/Time: 05/10/18 01:55 Attending Provider: Juan Lo Admit Provider: Wilbert Ordoñez Primary Care Provider: Cathleen Infante Other Providers: Wilbert Ordoñez ; Wilbert Ludwig Service: Telemetry Medical
--- NOTE | 2018-05-11 17:44 | Pharmacy Report ---
Pharmacist Stroke Counseling - Date of Service May 11, 2018 - Scope: Pharmacy has been consulted to provide medication discharge counseling for this patient admitted with ischemic stroke as per the Pharmacist Discharge Counseling for Stroke Patients Protocol. - Medications on Discharge: Home Medications Medication Instructions Recorded Confirmed amlodipine 10 mg PO QAM 03/05/18 05/09/18 atorvastatin 10 mg PO QPM 03/05/18 05/09/18 calcium carbonate-vitamin D3 1 tab PO TIDM 03/05/18 05/09/18 clopidogrel 75 mg PO QAM 03/05/18 05/09/18 docusate sodium [Colace] 100 mg PO BID PRN 03/05/18 05/09/18 furosemide 20 mg PO BID 03/05/18 05/09/18 levothyroxine 25 mcg PO QAM 03/05/18 05/10/18 lisinopril 40 mg PO QAM 03/05/18 05/09/18 metoprolol tartrate 12.5 mg PO BID 03/05/18 05/09/18 pantoprazole 40 mg PO QAM 03/05/18 05/09/18 sertraline 25 mg PO HS 03/05/18 05/09/18 albuterol sulfate [ProAir HFA] 2 puff INHALATION Q4H PRN 05/09/18 05/09/18 fluticasone propionate 2 spry INTRANASAL DAILY PRN 05/09/18 05/09/18 loratadine 10 mg PO DAILY PRN 05/09/18 05/09/18 nystatin 1 applic TOPICAL BID PRN 05/09/18 05/09/18 polymyxin B sulf-trimethoprim 1 drp OPL UD 05/09/18 05/09/18 - Action: The above medications, specifically ones for stroke treatment/prophylaxis, have been reviewed in detail with the patient's daughter prior to discharge. This includes indication, common adverse reactions, drug interactions, and medication administration. Medication counseling has been employed using the teach-back method to ensure understanding. - Outcome: Per discharge packet and, documented reports, patient did not have new stroke and no new meds were started. Patient being discharged today on all her old meds. The discharge packet listed 16 meds including Atorvastatin and Clopidogrel - same doses to be continued post-discharge as she was on prior to admission. I went over all the meds and in particular the Atorvastatin and Clopidogrel addressing common side effects and importance of compliance to prevent future stroke. The patient's daughter demonstrated understanding of the medications. She was aware that patient was already on all these meds and told me that she did not have any problems with them. I informed patient's daughter that a pharmacist would call them within 72 hours post-discharge to confirm that the appropriate medications are being taken and answer any further medication related questions the patient might have at that time. Daughter said that it was not necessary to call since there are no new meds on discharge. Daughter said that they will be going to see the patient's PCP on Tuesday. Contact information Individual to be contacted: N/A Relationship to patient (if applicable): N/A Phone number: N/A Best time to call: N/A Thank you for allowing pharmacy to be involved in the care of this patient. Please call [phone] or [phone] with any additional questions
== END 2018-05-11 17:28 | disposition home or self-care (01) | DRG 65 ==
LOC: ED 22:07 → 2N 05-10 01:55

== ENCOUNTER 2018-07-22 15:15 | Inpatient (IN) ==
--- NOTE | 2018-07-22 15:51 | CT Scan Report ---
CT head/brain wo con CLINICAL HISTORY: 82 years-old Female presenting with Stroke evaluation . TECHNIQUE: Multidetector CT imaging of the head was performed without the use of intravenous contrast . IV contrast: None. One or more dose lowering techniques were used consistent with the principles of ALARA (as low as reasonably achievable), including automatic exposure control, mA or kV adjustment t o individual patient size, and/or use of iterative reconstruction. COMPARISON: 05/09/2018 and MR brain from 05/10/2018. CT DOSE (mGy.cm): The estimated cumulative dose is unavailable at the time of dictation. FINDINGS: Test Technician topogram: Unremarkable. Proportional ventricular and sulcal prominence, likely age-related parenchymal volume loss. No hemorr augustine. Old right frontal lobe infarct. There fall seen right occipital lobe infarct is new from prior CT though present on the prior MR brain from 05/10/2018. No acute territorial infarct. No mass effect o r midline shift. No extra-axial fluid collection. Paranasal sinuses and mastoid air cells clear. Calv arium intact. IMPRESSION: 1. No acute intracranial pathology. 2. Interval evolution of the right occipital lobe infarct, which was acute on MR brain from 05/10/2018 , now chronic. 3. Old right MCA territory infarct. Electronically signed by: Paul Rojo M.D. 07/22/2018 3:50 PM
[2018-07-22] MEDS ORDERED: OPTIRAY 320 125ml IV PRN (16:03)
[2018-07-22 16:05] LABS: Basophils # (auto) 0.04 K/uL (0-0.2); Basophils % (auto) 0.2 %; Eosinophils % (auto) 1.2 %; Hemoglobin 11.2 g/dL (12.0-16.0); Immature Granulocytes % (auto) 0.6 %; Lymphocytes # (auto) 1.34 K/uL (1.2-3.4); Lymphocytes % (auto) 8.2 %; Mean Corpuscular Hgb Conc 32.9 g/dL (32-36); Mean Corpuscular Volume 79.8 fL (80-100); Mean Platelet Volume 9.5 fL (7.4-10.4); Monocytes % (auto) 9.2 %; Neutrophils # (auto) 13.13 K/uL (1.4-6.5); Neutrophils % (auto) 80.6 %; Platelet Count 259 K/uL (130-400); RDW Coefficient of Variation 15.4 % (11.5-14.5); RDW Standard Deviation 44.7 fL (36.4-46.3); Red Blood Count 4.26 M/uL (4.2-5.4); White Blood Count 16.31 K/uL (4.8-10.8)
[2018-07-22 16:17] LABS: INR 1.2 (0.9-1.1); Partial Thromboplastin Time 26.8 Seconds (21.0-31.0); Prothrombin Time 12.6 Seconds (9.0-12.0)
--- NOTE | 2018-07-22 16:19 | CT Scan Report ---
CT angio head w con CLINICAL HISTORY: 82 years-old Female presenting with left sided weakness. TECHNIQUE: Multidetector CT angiography of the head was performed after the administration of intrave nous contrast. 3-D volumetric and/or maximum intensity projection (MIP) images were subsequently mari nstructed for review. IV contrast: 119 mL of Optiray 320. One or more dose lowering techniques were u sed consistent with the principles of ALARA (as low as reasonably achievable), including automatic ex posure control, mA or kV adjustment to individual patient size, and/or use of iterative reconstructio n. COMPARISON: MRA head from 05/10/2018. CT DOSE (mGy.cm): The estimated cumulative dose is 1467.18 mGy.cm. FINDINGS: Hat Conditioner topogram: Unremarkable. Anterior circulation: Atherosclerosis of the cavernous segments of the internal carotid arteries. Int racranial portions of the internal carotid arteries patent to the level of the termini. Anterior cere bral arteries patent. Middle cerebral arteries patent. Anterior communicating artery patent. Posterior circulation: Left dominant vertebral artery. Intradural portions of the vertebral arteries patent. Posterior inferior cerebellar arteries patent. Basilar artery patent. Anterior inferior cereb ellar arteries poorly visualized. Superior cerebellar arteries patent. or near origin of the left posterior cerebral artery, which is patent. Right posterior cerebral artery patent. Posterio r communicating arteries patent. Dural venous sinuses: Patent. Other: Right MCA territory infarct again noted as well as the right parafalcine occipital lobe infarc t. Calvarium intact. IMPRESSION: 1. No evidence of aneurysm, focal vessel occlusion, or significant stenosis of the intracranial neto julio c. Electronically signed by: Paul Rojo M.D. 07/22/2018 4:17 PM
--- NOTE | 2018-07-22 16:22 | CT Scan Report ---
CT angio neck with con CLINICAL HISTORY: 82 years-old Female presenting with left sided weakness. TECHNIQUE: Multidetector CT angiography of the neck was performed after the administration of intrave nous contrast. 3-D volumetric and/or maximum intensity projection (MIP) images were subsequently mari nstructed for review. IV contrast: 119 mL of Optiray 320. One or more dose lowering techniques were u sed consistent with the principles of ALARA (as low as reasonably achievable), including automatic ex posure control, mA or kV adjustment to individual patient size, and/or use of iterative reconstructio n. Stenosis measurements were based on NASCET-like criteria (distal lumen diameter as the denominator for stenosis measurement). COMPARISON: None. CT DOSE (mGy.cm): The estimated cumulative dose is 1467.18. FINDINGS: Station Cleaning Porter topogram: Unremarkable. Aortic arch: Atherosclerosis of the three-vessel aortic arch with patent origins of the branch vessel s. Innominate artery: Patent. Right subclavian artery: Patent. Right common carotid artery: Patent. Right internal and external carotid arteries: Atherosclerotic plaque at the right common carotid bifu rcation. Calcified and noncalcified plaque also noted along the proximal course of the right ICA with no resulting stenosis. Right ECA patent. Left common carotid artery: Patent. Left internal and external carotid arteries: Trace atherosclerotic plaque at the carotid bifurcation without significant stenosis of the left ICA or ECA. Left subclavian artery: Patent. Vertebral arteries: Left dominant vertebral artery. Mild atherosclerotic plaque at the origin of the left vertebral artery with less than 50% stenosis. The remainder of the left vertebral artery is wide ly patent along its course. Right vertebral artery also patent. Other: Limited intracranial evaluation within normal limits. Multinodular thyroid. Degenerative jean baptiste es of the cervical spine. Osteopenia suspected. Patchy groundglass opacity at the right upper lobe wi th bronchial wall thickening and scattered subsegmental endobronchial debris. IMPRESSION: 1. Less than 50% stenosis of the origin of the left vertebral artery. 2. Atherosclerosis without other evidence of dissection, focal vessel occlusion, or significant sten osis of the cervical arteries. 3. Scattered groundglass infiltrates with bronchial wall thickening and scattered subsegmental endob ronchial debris in the right upper lobe concerning for infectious bronchiolitis. Electronically signed by: Paul Rojo M.D. 07/22/2018 4:21 PM
[2018-07-22 16:23] LABS: Alanine Aminotransferase 11 U/L (12-78); Albumin Level 2.8 gm/dl (3.4-5.0); Aspartate Aminotransferase 10 U/L (15-37); BUN Creatinine Ratio 16.3 (10-20); Blood Urea Nitrogen 14 mg/dl (7-18); Calcium 8.2 mg/dl (8.5-10.1); Carbon Dioxide 28 mmol/L (21-32); Creatinine Clr Calc Pharmacy 48.1 ml/min; Est GFR (Non-African American) 63.8; Glucose 138 mg/dl (70-99); Magnesium 1.5 mg/dl (1.8-2.4)
--- NOTE | 2018-07-22 16:49 | XRay Report ---
XR chest 1V portable CLINICAL HISTORY: 82 years-old Female presenting with eval for pna. TECHNIQUE: Portable upright AP view of the chest was obtained. COMPARISON: 07/14/2018. FINDINGS: Atherosclerosis of the aortic arch. Cardiac silhouette normal in size. Mildly low lung volumes. Promi nent lung markings. More focal opacity in the paramediastinal right upper lung. No large effusion or pneumothorax. Degenerative changes of the thoracic spine. Osteopenia suspected. Upper abdomen normal. IMPRESSION: 1. Infiltrate suspected in the right upper paramediastinal lung. This is suspicious for pneumonia. 2. Low lung volumes. Electronically signed by: Paul Rojo M.D. 07/22/2018 4:47 PM
[2018-07-22] MEDS ORDERED: PIPERACILLIN/TAZOBACTAM 3.375 GM/115 ML BAG IV STA (16:54)
[2018-07-22] MEDS ORDERED: PIPERACILL/TAZOBAC CONSULT ACTIVE PRN ×2 (16:54→20:00)
[2018-07-22 16:59] LABS: Albumin Globulin Ratio 0.8 (0.9-2); Alkaline Phosphatase 93 U/L (45-117); Bilirubin,Total 0.7 mg/dl (0.2-1); Chloride 103 mmol/L (98-107); Globulin 3.6 gm/dl (2.5-4.0); Potassium 3.5 mmol/L (3.5-5.1); Sodium 139 mmol/L (136-145); Total Protein 6.4 gm/dl (6.4-8.2); Troponin I < 0.015 ng/ml (0-0.045)
[2018-07-22 17:01] LABS: Appearance Urine Clear (Clear); Bacteria Urine Automated Negative (Negative); Bilirubin Urine Negative (Negative); Blood Urine Trace (Negative); Cast Urine Automated 0 /lpf (0-5); Color Urine Yellow; Epithelial Cell Urine Auto 0-5 /lpf (0-5); Glucose Urine UA Negative (Negative); Ketones Urine Negative (Negative); Leukocyte Esterase Urine Negative (Negative); Nitrite Urine Negative (Negative); Protein Urine Negative (Negative); RBC Urine Automated 0-4 /hpf (0-4); Specific Gravity Urine 1.023 (1.000-1.030); Urobilinogen Urine Negative (Negative); pH Urine 5.5 (4.5-7.5)
[2018-07-22] MEDS: MAGNESIUM SULFATE / D5W 1 GM/100 ML BAG IV SCH ×2 (17:05→20:17)
--- NOTE | 2018-07-22 18:04 | History & Physical Report ---
Date of Service July 22, 2018 Assessment & Plan (1) Stroke-like symptoms: This is an 82-year-old female who has a significant past medical history of HTN, Pre-DM, hypothyroidism, osteoporosis, history of CVA most recently in 05/[address] [facility] ED secondary to left-sided weakness that was noticed at 12 PM. Of significance pt recently hospitalized 05/09-05/11 for acute right occipital lobe CVA. Initial CT negative for acute infarct but did reveal old right MCA territory infarct. MRI confirmed right occipital lobe infarct. Echocardiogram performed at time and did not demonstrate PFO. Carotid ultrasoound - right ICA 50-69% stenosis. She has allergy to ASA so recommended to continue Plavix 75mg daily. Outpatient ZIO patch - normal sinus rhythm average rate 58 bpm, episodes of SVT but no episodes of A. fib or flutter. Stroke alert was called TPA contraindicated given stroke w/in [address] Head revealed evolving right occipital lobe infarct as well as old right MCA infarct but no other acute abnormality. CTA head neck: less than 50% stenosis of left vertebral artery, atherosclerosis without evidence of dissection or significant stenosis of cervical arteries Tele neuro recommending continue Plavix and CVA work up Admit to telemetry Consult neurology obtain MRI to determine if sx correlate with new stroke lesion Pt with allergy to ASA so will continue plavix - If MRI + will need to discuss with neurology regarding ? need for system anticoagulation given failed plavix therapy continue risk reduction measures including LDL < 70, improve BP control obtain repeat Lipid panel in am (LDL in may was 50) along with A1C ( last A1C 5.7) PT/OT/ST (2) Right upper lobe pneumonia: Completed outpatient course of Augmentin for 10 days secondary to acute bronchitis CXR now revealing acute right upper lobe pneumonia and leukocytosis [id number]? if aspiration - ST consulted Pt does not meet SIRS criteria Received IV Zosyn in ED Continue IV Zosyn Obtain MRSA swab given recent hospitalization within past 3 months, if + add MRSA coverage follow blood and sputum cultures (3) Hypomagnesemia: likely secondary to recent diarrhea Received 1g IV mag while in ED will repeat with additional 1g mag sulfate on floor repeat Mag in a.m. (4) Diarrhea: possibly due to ADR from augmentin but given > 3 loose stools daily check for Cdiff (5) HTN (hypertension): blood pressure slightly elevated Hold home Lasix, lisinopril, amlodipine to allow for permissive hypertension u ntil CVA ruled out monitor bp closely (6) Dyslipidemia: continue atorvastatin LDL 50 05/2018; therefore statin therapy not increased to high intensity check lipid panel in a.m. (7) CKD (chronic kidney disease) stage 3, GFR 30-59 ml/min: Bun/Cr 14 and 08.4 Cr at baseline monitor bmp (8) Hypothyroidism: Continue levothyroxine (9) Anemia: H/H stable 11.2 and 34.0 no s/sx of bleeding monitor (10) DVT prophylaxis: SCDS/TEDS Disposition: to be determined, case management consulted Follow up: PCP Dr. Infante upon discharge along with approp neurology follow up Patient was seen and examined in collaboration with Dr. Lo, please see addendum History of Present Illness Chief Complaint: Left sided weakness noticed at 12pm Primary Care Provider: Cathleen Infante, DO This is an 82-year-old female who has a significant past medical history of HTN, Pre-DM, hypothyroidism, osteoporosis, history of CVA most recently in 05/[address] [facility] ED secondary to left-sided weakness that was noticed at 12 PM. Patient lives with granddaughter in law family. When she awoke at 12 noon it was noticed she had left upper extremity weakness and difficulty walking leaning to left side. She also had difficulty using LUE and was using R arm to support it. Pt was last known well at approx 11pm last evening. Granddaughter did not notice any slurred speech or facial drop. Currently feels symptoms have improved slightly since presentation this morning, specifically with walking. Pt denies and lightheaded, dizziness, chest pain, palpitations, syncope, sob at rest, n/v, abdominal pain. Pt recently completed 10 day course of augmentin secondary to dx of Bronchitis. Seen in outpt setting on 07/12 and again in ED 07/14. Initially required nebulizer treatments but family feels symptoms are improving. Continues with cough but not productive. Also since starting antibiotics pt has had 4-5 loose BM/Diarrhea. Overall appetite is stable and no sridevi weight loss. Pt/Family concerned why she keeps having strokes and how to prevent them. Of significance pt recently hospitalized 05/09-05/11 for acute right occipital lobe CVA. Initial CT negative for acute infarct but did reveal old right MCA ter ritory infarct. MRI confirmed right occipital lobe infarct. Echocardiogram performed at time and did not demonstrate PFO. Carotid ultrasoound - right ICA 50-69% stenosis. She has allergy to ASA so recommended to continue Plavix 75mg daily. Outpatient ZIO patch - normal sinus rhythm average rate 58 bpm, episodes of SVT but no episodes of A. fib or flutter. Allergies Allergy/AdvReac Type Severity Reaction Status Date / Time aspirin Allergy Severe ANAPHYLAXIS, Verified 07/22/18 16:42 SWELLING Home Medications Home Medications Medication Instructions Recorded Confirmed Type amlodipine 10 mg PO QAM 03/05/18 07/22/18 History atorvastatin 10 mg PO QPM 03/05/18 07/22/18 History calcium carbonate-vitamin D3 1 tab PO BID 03/05/18 07/22/18 History clopidogrel 75 mg PO QAM 03/05/18 07/22/18 History docusate sodium [Colace] 100 mg PO BID PRN 03/05/18 07/22/18 History furosemide 20 mg PO BID 03/05/18 07/22/18 History levothyroxine 25 mcg PO QAM 03/05/18 07/22/18 History lisinopril 40 mg PO QAM 03/05/18 07/22/18 History metoprolol tartrate 12.5 mg PO BID 03/05/18 07/22/18 History pantoprazole 40 mg PO QAM 03/05/18 07/22/18 History sertraline 25 mg PO HS 03/05/18 07/22/18 History albuterol sulfate [ProAir HFA] 2 puff INHALATION Q4H PRN 05/09/18 07/22/18 History fluticasone propionate 2 spry INTRANASAL DAILY PRN 05/09/18 07/22/18 History loratadine 10 mg PO DAILY PRN 05/09/18 07/22/18 History nystatin 1 applic TOPICAL BID PRN 05/09/18 07/22/18 History polymyxin B sulf-trimethoprim 1 drp OPL DAILY PRN 05/09/18 07/22/18 History Past Med/Surg History Medical History Cerebrovascular disease (Chronic) Hypothyroidism (Chronic) CKD (chronic kidney disease) stage 3, GFR 30-59 ml/min (Chronic) Dyslipidemia (Chronic) HTN (hypertension) (Chronic) 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) Osteoporosis (Chronic) Osteoarthritis (Chronic) Anemia (Chronic) Renal lesion (Chronic) Surgical History History of hip surgery (Chronic) left Family History Other Cancer Diabetes Hypertension Kidney disease No significant family history Social History Preferred Language: [place] 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 Ability: Effective 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 Ability Comment: hears low tones more easily than higher tones Credit Investigator Required: No Beliefs That Will Affect Care: None Current Living Situation: Family Current Living Situation Comment: Lives with Daughter Otto and her family Other Information That Helps Us Care for You: No Feels Safe at Home: Yes Safety Concerns: Feels Safe At This Time Smoking Status: Never smoker Do You Dip or Chew Tobacco: No Hx Alcohol Use: Yes Hx Substance Use: No Review of Systems Review of Systems: As noted per HPI, 10 systems reviewed and negative unless noted above. Physical Exam Physical Exam: Gen: Elderly, F, NAD, sitting up in bed, pleasant, conversing easily Head: Normocephalic, Atraumatic Eyes: Sclera normal, no conjunctival injection, PERRLA, EOMI ENT: Hard of hearing, normal pharynx, mucous membranes moist Neck: supple, no adenopathy, No JVD, no bruit, Resp: Clear to auscultation b/l, expiratory rhonchi noted bilaterally, no wheeze or rales. 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 Extremities: No edema bilaterally Skin: warm, moist, no rash, negative turgor, cap refill < 2sec Neuro: Alert and oriented x 3, speech normal, good mood/affect, cran nerve 2-12 intact grossly : deferred Results & Data Vital Signs (Past 12 Hours) Vital Signs Temp Pulse Resp BP BP Pulse Ox 07/22/18 16:42 18 149/50 H 97 07/22/18 15:18 36.9 C 73 17 134/56 L 95 Laboratory Results Short CBC 07/22/18 07/22/18 07/22/18 Range/Units 15:49 15:49 16:35 WBC 16.31 H (4.8-10.8) K/uL Hgb 11.2 L (12.0-16.0) g/dL Hct 34.0 L (37-47) % Plt Count 259 (130-400) K/uL Creatinine 0.84 (0.6-1.2) mg/dl Urine Blood Trace H (Negative) BMP 07/22/18 15:49 Sodium 139 Potassium 3.5 Chloride 103 Carbon Dioxide 28 BUN 14 Creatinine 0.84 Glucose 138 H Calcium 8.2 L Cardiac Enzymes 07/22/18 Range/Units 15:49 Troponin I < 0.015 (0-0.045) ng/ml Liver Function 07/22/18 Range/Units 15:49 Total Bilirubin 0.7 (0.2-1) mg/dl AST 10 L (15-37) U/L ALT 11 L (12-78) U/L Alkaline Phosphatase 93 (45-117) U/L Albumin 2.8 L (3.4-5.0) gm/dl Urine 07/22/18 Range/Units 16:35 Urine Color Yellow Urine Appearance Clear (Clear) Urine pH 5.5 (4.5-7.5) Ur Specific [place] 1.023 (1.000-1.030) Urine Protein Negative (Negative) Urine Glucose (UA) Negative (Negative) Diagnostic Findings Head/Neck CTA: IMPRESSION: 1. Less than 50% stenosis of the origin of the left vertebral artery. 2. Atherosclerosis without other evidence of dissection, focal vessel occlusion, or significant stenosis of the cervical arteries. 3. Scattered groundglass infiltrates with bronchial wall thickening and scattered subsegmental endobronchial debris in the right upper lobe concerning for infectious bronchiolitis. IMPRESSION: 1. No evidence of aneurysm, focal vessel occlusion, or significant stenosis of the intracranial arteries. CXR: IMPRESSION: 1. Infiltrate suspected in the right upper paramediastinal lung. This is suspicious for pneumonia. 2. Low lung volumes Head CT:IMPRESSION: 1. No acute intracranial pathology. 2. Interval evolution of the right occipital lobe infarct, which was acute on MR brain from 05/10/2018, now chronic. 3. Old right MCA territory infarct. Medications Administered Magnesium Sulfate/Dextrose (Magnesium Sulfate / D5w) 1 gm in 100 mls @ 100 mls/hr IV Q1H CURLY Stop: 07/22/18 18:59 Last Admin: 07/22/18 17:05 Dose: 100 mls/hr Documented by: [id number] Ioversol (Optiray 320 125ml) 119 ml IV ONCE PRN PRN Reason: Interaction Checking Stop: 07/26/18 16:02 Last Admin: 07/22/18 16:03 Dose: 119 ml Documented by: [id number] Discontinued Medications Piperacillin Sod/Tazobactam Sod (Zosyn) 3.375 gm in 115 mls @ 230 mls/hr IV NOW STA Stop: 07/22/18 17:23 Last Admin: 07/22/18 17:51 Dose: 230 mls/hr Documented by: [id number] ECG Rate (beats per minute): 81 Rhythm: normal sinus Findings: + prolonged QT (QTC 480ms) Code Status & VTE Plan Code Status Full Code VTE Prophylaxis Plan VTE Prophylaxis will be ordered: Yes Supervising Physician Co-Signing Physician Notes I have seen and examined the patient with physician assistant commissioner and agree with the assessment and plan as above would like to comment that this is a patient with history strokes and was last discharged from the hospital in May 2018 when she presented with left upper extremity weakness and found to have Acute CVA (cerebrovascular accident) MRI with acute periventricular medial right occipital lobe and subacute infract right cerebellar hemisphere with old right MCA infarct on head CT and was discharged after symptoms resolved with new medication of Plavix as per neurology (aspirin could not be done because of allergy) Patient since was recently seen in the ED on July 14, 2018 for respiratory symptoms and was discharged from the ED the same day because Chest X ray was clear and had presumed diagnosis of bronchitis. Patient was on oral antibiotic of Augmentin Patient was at home when the grand-daughter noted left upper extremity weakness around the noon time of 07/22/18 when patient was using her right upper extremity more to eat rather than hold objects with left arm. The motor of the strength of left upper extremity got better during the day and then later became worse as patient was reportedly weaker on left side when standing and appeared to be tilting to that side Patient was brought to the ED on 07/22/18. Imaging of CT head with contrast, neck CTA, and head CTA did not appear to show any new acute findings CT head with contrast : Interval evolution of the right occipital lobe infarct, which was acute on MR brain from 05/10/2018, now chronic. Old right MCA territory infarct. Neck CTA did note: Mild atherosclerotic plaque at the origin of the left vertebral artery with less than 50% stenosis. But there is no comparison Neck CTA on May admission and instead Neck MRA was performed on May admission. Patient did have in May admission: carotid ultrasound - right ICA 50-69% stenosis, but Neck CTA in May clarified Atherosclerotic plaque at the right common carotid bifurcation and Calcified and noncalcified plaque along the proximal course of the right ICA with no resulting stenosis. Patient also found to have right upper lobe pneumonia on Chest X ray for which she was started on Zosyn in the ED On exam: -Currently in the ED, the strength of the left side is perhaps only mildly weaker than the left side. The patient does have a poorer finger to nose test with the left upper extremity compared to right upper extremity -other Neuro: awake and alert, EOMI - Patient has passed the nursing speech and swallow test in the ED. Patient is breathing comfortably on room air. Normal respiratory effort -Heart rate is sinus and regular rate -abdomen is soft, nontender, bowel sounds positive Main medical issues at this time include management of History of stroke Stroke like symptoms -rule out new stroke, rule out TIA - will order Brain MRI with contrast, neurology consult, aspiration precautions, formal speech and swallow consult, continue home dose Plavix, patient had good lipid panel last admission and was not on statin, will recheck lipid panel, PT/OT Right upper lobe pneumonia -patient had Augmentin has outpatient -continue Zosyn as started in the ED -follow up blood cultures -speech and swallow consult to evaluate if aspiration risks Other medical management as described by physician assistant commissioner including History of asthma CKD (chronic kidney disease) stage 3, GFR 30-59 ml/min Hypothyroidism DVT prophylaxis: SCDs for now (1) Right upper lobe pneumonia Pneumonia type: due to unspecified organism Qualified Code(s): J18.1 - Lobar pneumonia, unspecified organism
--- NOTE | 2018-07-22 18:27 | Emergency Department Note ---
Entered by Suzie Moore acting as a scribe for History of Present Illness General Chief complaint: TIA Symptoms Stated complaint: STROKE SYSTOMS Source: patient Mode of arrival: wheelchair Limitations: no limitations History of Present Illness Onset (ago): hour(s) greater than 10 (16) Location: head Radiation: non-radiation Pain Consistency: + constant Relieved By: + none Exacerbated By: + none Associated symptoms: + weakness (left arm) and + other (-abdominal pain); no chest pain, no fever/chills, no headaches, no nausea/vomiting and no shortness of breath Treatments prior to arrival: none The patient is an 82 year old female who presents to the ED with complaints of possible stroke symptoms. Her family states she woke up around noon today, which is late for her. The patient ambulates with a walker and her granddaughter states her left arm was "drooping" as she was ambulating. She seemed to have trouble ambulating and was not holding up her left arm while she was eating. Th e patient has a history of a prior CVA and TIA's. She states that these are new symptoms. She is on daily Aspirin. Her granddaughter last saw her acting normally around 2300 last night. The patient denies any headache or recent fevers. She denies any vomiting, chest pain, shortness of breath or abdominal pain. Home Medications Home Medications Medication Instructions Recorded Confirmed Type amlodipine 10 mg PO QAM 03/05/18 07/22/18 History atorvastatin 10 mg PO QPM 03/05/18 07/22/18 History calcium carbonate-vitamin D3 1 tab PO BID 03/05/18 07/22/18 History clopidogrel 75 mg PO QAM 03/05/18 07/22/18 History docusate sodium [Colace] 100 mg PO BID PRN 03/05/18 07/22/18 History furosemide 20 mg PO BID 03/05/18 07/22/18 History levothyroxine 25 mcg PO QAM 03/05/18 07/22/18 History lisinopril 40 mg PO QAM 03/05/18 07/22/18 History metoprolol tartrate 12.5 mg PO BID 03/05/18 07/22/18 History pantoprazole 40 mg PO QAM 03/05/18 07/22/18 History sertraline 25 mg PO HS 03/05/18 07/22/18 History albuterol sulfate [ProAir HFA] 2 puff INHALATION Q4H PRN 05/09/18 07/22/18 History fluticasone propionate 2 spry INTRANASAL DAILY PRN 05/09/18 07/22/18 History loratadine 10 mg PO DAILY PRN 05/09/18 07/22/18 History nystatin 1 applic TOPICAL BID PRN 05/09/18 07/22/18 History polymyxin B sulf-trimethoprim 1 drp OPL DAILY PRN 05/09/18 07/22/18 History Allergies Allergy/AdvReac Type Severity Reaction Status Date / Time aspirin Allergy Severe ANAPHYLAXIS, Verified 07/22/18 16:42 SWELLING Past Med/Surg History Medical History Cerebrovascular disease (Chronic) Hypothyroidism (Chronic) CKD (chronic kidney disease) stage 3, GFR 30-59 ml/min (Chronic) Dyslipidemia (Chronic) HTN (hypertension) (Chronic) 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) Osteoporosis (Chronic) Osteoarthritis (Chronic) Anemia (Chronic) Renal lesion (Chronic) Family History Other Cancer Diabetes Hypertension Kidney disease No significant family history Social History Preferred Language: Slovak 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 Ability: Effective 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 Ability Comment: hears low tones more easily than higher tones Accountant Required: No Beliefs That Will Affect Care: None Current Living Situation: Family Current Living Situation Comment: Lives with Daughter Otto and her family Other Information That Helps Us Care for You: No Feels Safe at Home: Yes Safety Concerns: Feels Safe At This Time Smoking Status: Never smoker Do You Dip or Chew Tobacco: No Hx Alcohol Use: Yes Hx Substance Use: No Review of Systems See HPI for pertinent positives & negatives. and A total of 10 systems reviewed and were otherwise negative Physical Exam Vital Signs Vital Signs - 24 hr 07/22/18 15:18 07/22/18 16:42 07/22/18 17:35 Temperature 36.9 C Temperature Source Oral Sepsis Recent Fever Within 48 Hours No Sepsis New/Unexplained Change in Mental Status No Sepsis Action Taken by Nursing No Action Required Pulse Rate 73 Respiratory Rate 17 18 Respiratory Effort / Characteristics Non-Labored Non-Labored Spontaneous Respiratory Depth Normal Normal Normal Respiratory Pattern Regular Blood Pressure 134/56 L Blood Pressure [Right Arm] 149/50 H Blood Pressure Mean 82 Blood Pressure Mean [Right Arm] 83 Blood Pressure Position [Right Arm] Lying Pulse Oximetry 95 97 Oxygen Delivery Method Room Air Room Air Constitutional: Vital signs reviewed. Eyes: Pupils are equal round reactive to light. Conjunctiva are noninjected. ENT: Pharynx is clear without erythema or exudate. Mucous membranes are moist. Neck supple without meningeal signs. Respiratory: Clear to auscultation bilaterally. Breath sounds are equal bilaterally. Cardiovascular: Regular rate and rhythm. No rubs or gallops. GI: Soft, nondistended and nontender. Bowel sounds are present. Musculoskeletal: No peripheral edema. No lower extremity tenderness. Integumentary: No cyanosis. Neurological: The patient is awake and alert. Cranial nerves II-XII are intact except for left lower face weakness sparing the forehead. Sensation is intact to light touch all extremities. Normal speech. Left pronator drift with 4/5 strength in the left arm and 3/5 in the left leg. Psychiatric: Normal affect. Course 1528: The patient was evaluated in room C9 and a complete history and physical were performed. 1542: I discussed the patients case with Dr Chris Neurology, he thinks there is no indication for IV TPA. 1629: I discussed the test results with the patient and her daughter. 1655: [facility] The patient will be further evaluated. Consultations Consultation #1: I discussed the patients [facility] The patient will be further evaluated. Time: 16:55 Administered Medications Magnesium Sulfate/Dextrose (Magnesium Sulfate / D5w) 1 gm in 100 mls @ 100 mls/hr IV Q1H CURLY Stop: 07/22/18 18:59 Last Admin: 07/22/18 17:05 Dose: 100 mls/hr Documented by: [id number] Ioversol (Optiray 320 125ml) 119 ml IV ONCE PRN PRN Reason: Interaction Checking Stop: 07/26/18 16:02 Last Admin: 07/22/18 16:03 Dose: 119 ml Documented by: [id number] Discontinued Medications Piperacillin Sod/Tazobactam Sod (Zosyn) 3.375 gm in 115 mls @ 230 mls/hr IV NOW STA Stop: 07/22/18 17:23 Last Infusion: 07/22/18 18:26 Dose: 0 mls/hr Documented by: [id number] Admin: 07/22/18 17:51 Dose: 230 mls/hr Documented by: [id number] Medical Decision Making Differential Diagnosis Differential diagnosis includes: CVA, TIA, ICH, intracranial mass, carotid stenosis, amongst others Home Medications Current Medication List: was personally reviewed by me Laboratory Data Attestation: I reviewed the patient's lab results. Result diagrams: 07/22/18 15:49 07/22/18 15:49 Lab Results 07/22/18 07/22/18 07/22/18 Range/Units 15:49 15:49 15:49 WBC 16.31 H (4.8-10.8) K/uL RBC 4.26 (4.2-5.4) M/uL Hgb 11.2 L (12.0-16.0) g/dL Hct 34.0 L (37-47) % MCV 79.8 L (80-100) fL MCH 26.3 (25-34) pg MCHC 32.9 (32-36) g/dL RDW Std Deviation 44.7 (36.4-46.3) fL RDW Coeff of Cain 15.4 H (11.5-14.5) % Plt Count 259 (130-400) K/uL MPV 9.5 (7.4-10.4) fL Immature Gran % (Auto) 0.6 % Neut % (Auto) 80.6 % Lymph % (Auto) 8.2 % [place] % (Auto) 9.2 % Eos % (Auto) 1.2 % Baso % (Auto) 0.2 % Immature Gran # (Auto) 0.10 H (0.00-0.02) K/uL Neut # (Auto) 13.13 H (1.4-6.5) K/uL Lymph # (Auto) 1.34 (1.2-3.4) K/uL [place] # (Auto) 1.50 H (0.11-0.59) K/uL Eos # (Auto) 0.20 (0-0.5) K/uL Baso # (Auto) 0.04 (0-0.2) K/uL PT 12.6 H (9.0-12.0) Seconds INR 1.2 H (0.9-1.1) APTT 26.8 (21.0-31.0) Seconds PTT Ratio 1.0 Sodium 139 (136-145) mmol/L Potassium 3.5 (3.5-5.1) mmol/L Chloride 103 (98-107) mmol/L Carbon Dioxide 28 (21-32) mmol/L Anion Gap 9.0 (3-11) BUN 14 (7-18) mg/dl Creatinine 0.84 (0.6-1.2) mg/dl Est Cr Clr Drug Dosing 48.1 ml/min Est GFR ( Amer) 74.0 Est GFR (Non-Af Amer) 63.8 BUN/Creatinine Ratio 16.3 (10-20) Glucose 138 H (70-99) mg/dl POC Glucose (70-99) Calcium 8.2 L (8.5-10.1) mg/dl Magnesium 1.5 L (1.8-2.4) mg/dl Total Bilirubin 0.7 (0.2-1) mg/dl AST 10 L (15-37) U/L ALT 11 L (12-78) U/L Alkaline Phosphatase 93 (45-117) U/L Troponin I < 0.015 (0-0.045) ng/ml Total Protein 6.4 (6.4-8.2) gm/dl Albumin 2.8 L (3.4-5.0) gm/dl Globulin 3.6 (2.5-4.0) gm/dl Albumin/Globulin Ratio 0.8 L (0.9-2) Urine Color Urine Appearance (Clear) Urine pH (4.5-7.5) Ur Specific [place] (1.000-1.030) Urine Protein (Negative) Urine Glucose (UA) (Negative) Urine Ketones (Negative) Urine Blood (Negative) Urine Nitrite (Negative) Urine Bilirubin (Negative) Urine Urobilinogen (Negative) Ur Leukocyte Esterase (Negative) Urine WBC (Auto) (0-5) /hpf Urine RBC (Auto) (0-4) /hpf U Hyaline Cast (Auto) (0-5) /lpf U Epithel Cells (Auto) (0-5) /lpf Urine Bacteria (Auto) (Negative) Blood Type Antibody Screen 07/22/18 07/22/18 07/22/18 Range/Units 16:13 16:14 16:35 WBC (4.8-10.8) K/uL RBC (4.2-5.4) M/uL Hgb (12.0-16.0) g/dL Hct (37-47) % MCV (80-100) fL MCH (25-34) pg MCHC (32-36) g/dL RDW Std Deviation (36.4-46.3) fL RDW Coeff of Cain (11.5-14.5) % Plt Count (130-400) K/uL MPV (7.4-10.4) fL Immature Gran % (Auto) % Neut % (Auto) % Lymph % (Auto) % [place] % (Auto) % Eos % (Auto) % Baso % (Auto) % Immature Gran # (Auto) (0.00-0.02) K/uL Neut # (Auto) (1.4-6.5) K/uL Lymph # (Auto) (1.2-3.4) K/uL [place] # (Auto) (0.11-0.59) K/uL Eos # (Auto) (0-0.5) K/uL Baso # (Auto) (0-0.2) K/uL PT (9.0-12.0) Seconds INR (0.9-1.1) APTT (21.0-31.0) Seconds PTT Ratio Sodium (136-145) mmol/L Potassium (3.5-5.1) mmol/L Chloride (98-107) mmol/L Carbon Dioxide (21-32) mmol/L Anion Gap (3-11) BUN (7-18) mg/dl Creatinine (0.6-1.2) mg/dl Est Cr Clr Drug Dosing ml/min Est GFR ( Amer) Est GFR (Non-Af Amer) BUN/Creatinine Ratio (10-20) Glucose (70-99) mg/dl POC Glucose 117 H (70-99) Calcium (8.5-10.1) mg/dl Magnesium (1.8-2.4) mg/dl Total Bilirubin (0.2-1) mg/dl AST (15-37) U/L ALT (12-78) U/L Alkaline Phosphatase (45-117) U/L Troponin I (0-0.045) ng/ml Total Protein (6.4-8.2) gm/dl Albumin (3.4-5.0) gm/dl Globulin (2.5-4.0) gm/dl Albumin/Globulin Ratio (0.9-2) Urine Color Yellow Urine Appearance Clear (Clear) Urine pH 5.5 (4.5-7.5) Ur Specific [place] 1.023 (1.000-1.030) Urine Protein Negative (Negative) Urine Glucose (UA) Negative (Negative) Urine Ketones Negative (Negative) Urine Blood Trace H (Negative) Urine Nitrite Negative (Negative) Urine Bilirubin Negative (Negative) Urine Urobilinogen Negative (Negative) Ur Leukocyte Esterase Negative (Negative) Urine WBC (Auto) 1-5 (0-5) /hpf Urine RBC (Auto) 0-4 (0-4) /hpf U Hyaline Cast (Auto) 0 (0-5) /lpf U Epithel Cells (Auto) 0-5 (0-5) /lpf Urine Bacteria (Auto) Negative (Negative) Blood Type O Negative Antibody Screen NEGATIVE Imaging Data Radiologist's Impression: Radiology results as stated below per my review and the radiologist's interpretation: CT angio neck with con CLINICAL HISTORY: 82 years-old Female presenting with left sided weakness. TECHNIQUE: Multidetector CT angiography of the neck was performed after the administration of intravenous contrast. 3-D volumetric and/or maximum intensity projection (MIP) images were subsequently reconstructed for review. IV contrast: 119 mL of Optiray 320. One or more dose lowering techniques were used consistent with the principles of ALARA (as low as reasonably achievable), including aut omatic exposure control, mA or kV adjustment to individual patient size, and/or use of iterative reconstruction. Stenosis measurements were based on NASCET-like criteria (distal lumen diameter as the denominator for stenosis measurement). COMPARISON: None. CT DOSE (mGy.cm): The estimated cumulative dose is 1467.18. FINDINGS: Phone Manager topogram: Unremarkable. Aortic arch: Atherosclerosis of the three-vessel aortic arch with patent origins of the branch vessels. Innominate artery: Patent. Right subclavian artery: Patent. Right common carotid artery: Patent. Right internal and external carotid arteries: Atherosclerotic plaque at the right common carotid bifurcation. Calcified and noncalcified plaque also noted along the proximal course of the right ICA with no resulting stenosis. Right ECA patent. Left common carotid artery: Patent. Left internal and external carotid arteries: Trace atherosclerotic plaque at the carotid bifurcation without significant stenosis of the left ICA or ECA. Left subclavian artery: Patent. Vertebral arteries: Left dominant vertebral artery. Mild atherosclerotic plaque at the origin of the left vertebral artery with less than 50% stenosis. The remainder of the left vertebral artery is widely patent along its course. Right vertebral artery also patent. Other: Limited intracranial evaluation within normal limits. Multinodular thyroid. Degenerative changes of the cervical spine. Osteopenia suspected. Patchy groundglass opacity at the right upper lobe with bronchial wall thickening and scattered subsegmental endobronchial debris. IMPRESSION: 1. Less than 50% stenosis of the origin of the left vertebral artery. 2. Atherosclerosis without other evidence of dissection, focal vessel occlusion, or significant stenosis of the cervical arteries. 3. Scattered groundglass infiltrates with bronchial wall thickening and scattered subsegmental endobronchial debris in the right upper lobe concerning for infectious bronchiolitis. Electronically signed by: Paul Rojo M.D. 07/22/2018 4:[address] angio head w con CLINICAL HISTORY: 82 years-old Female presenting with left sided weakness. TECHNIQUE: Multidetector CT angiography of the head was performed after the administration of intravenous contrast. 3-D volumetric and/or maximum intensity projection (MIP) images were subsequently reconstructed for review. IV contrast: 119 mL of Optiray 320. One or more dose lowering techniques were used consistent with the principles of ALARA (as low as reasonably achievable), including automatic exposure control, mA or kV adjustment to individual patient size, and/or use of iterative reconstruction. COMPARISON: MRA head from 05/10/2018. CT DOSE (mGy.cm): The estimated cumulative dose is 1467.18 mGy.cm. FINDINGS: Phone Manager topogram: Unremarkable. Anterior circulation: Atherosclerosis of the cavernous segments of the internal carotid arteries. Intracranial portions of the internal carotid arteries patent to the level of the termini. Anterior cerebral arteries patent. Middle cerebral arteries patent. Anterior communicating artery patent. Posterior circulation: Left dominant vertebral artery. Intradural portions of the vertebral arteries patent. Posterior inferior cerebellar arteries patent. Basilar artery patent. Anterior inferior cerebellar arteries poorly visualized. Superior cerebellar arteries patent. or near origin of the left posterior cerebral artery, which is patent. Right posterior cerebral artery patent. Posterior communicating arteries patent. Dural venous sinuses: Patent. Other: Right MCA territory infarct again noted as well as the right parafalcine occipital lobe infarct. Calvarium intact. IMPRESSION: 1. No evidence of aneurysm, focal vessel occlusion, or significant stenosis of the intracranial arteries. Electronically signed by: Paul Rojo M.D. 07/22/2018 4:17 PM XR chest 1V portable CLINICAL HISTORY: 82 years-old Female presenting with eval for pna. TECHNIQUE: Portable upright AP view of the chest was obtained. COMPARISON: 07/14/2018. FINDINGS: Atherosclerosis of the aortic arch. Cardiac silhouette normal in size. Mildly low lung volumes. Prominent lung markings. More focal opacity in the paramediastinal right upper lung. No large effusion or pneumothorax. Degenerative changes of the thoracic spine. Osteopenia suspected. Upper abdomen normal. IMPRESSION: 1. Infiltrate suspected in the right upper paramediastinal lung. This is suspicious for pneumonia. 2. Low lung volumes. Electronically signed by: Paul Rojo M.D. 07/22/2018 4:47 PM [place], [place] [phone] CT Scan Report Patient: ROBERT HUGHES Date: 07/22/18 MR#: [id number]: [address] Acct ID:[id number]: [facility] Zip[facility] [place] [address] Age: 82Location: ED Sex: F Room/Bed: Att Phy: Diagnosis: STROKE SYSTOMS Jessica Phy: Cathleen Infante, DOService Date: 07/22/18 [facility] Phy: Interpreting Phy: Paul Rojo MD Admit Phy: Ordering Phy: Cesar Guajardo MD cc: ~ CT head/brain wo con CLINICAL HISTORY: 82 years-old Female presenting with Stroke evaluation . TECHNIQUE: Multidetector CT imaging of the head was performed without the use of intravenous contrast. IV contrast: None. One or more dose lowering techniques were used consistent with the principles of ALARA (as low as reasonably achievable), including automatic exposure control, mA or kV adjustment to joss vidual patient size, and/or use of iterative reconstruction. COMPARISON: 05/09/2018 and MR brain from 05/10/2018. CT DOSE (mGy.cm): The estimated cumulative dose is unavailable at the time of dictation. FINDINGS: Phone Manager topogram: Unremarkable. Proportional ventricular and sulcal prominence, likely age-related parenchymal volume loss. No hemorrhage. Old right frontal lobe infarct. There fall seen right occipital lobe infarct is new from prior CT though present on the prior MR brain from 05/10/2018. No acute territorial infarct. No mass effect or midline shift. No extra-axial fluid collection. Paranasal sinuses and mastoid air cells clear. Calvarium intact. IMPRESSION: 1. No acute intracranial pathology. 2. Interval evolution of the right occipital lobe infarct, which was acute on MR brain from 05/10/2018, now chronic. 3. Old right MCA territory infarct. Electronically signed by: Paul Rojo M.D. 07/22/2018 3:50 PM ECG Data Attestation: I personally reviewed and interpreted this ECG as follows: Indication: other (stroke) Rate (beats per minute): 81 Rhythm: sinus rhythm Findings: + PVC; no ST elevation Blood Pressure Blood Pressure Findings: Elevated blood pressure Blood Pressure Disposition: further management by hospitalist [facility] Narrative I did evaluate the patient as noted above. The patient is presenting with new onset left-sided weakness. I did call a stroke alert. I did speak to the [facility] neurologist who agreed she is not a TPA candidate due to the time course of her symptoms. Her last known well was at 11 PM yesterday. IV access was es tablished. The patient was placed on a continuous monitoring engineer. I did order a CT of the head and CT angiogram of the head and neck. I did review the images myself as well as the radiology report as described above. There is no evidence of acute CVA. She does have carotid stenosis. There was concern of infiltrate to the right upper lobe on the CT angiogram of the neck. I did order and per sonally review the patient's 12-lead EKG as described above. There is no evidence of acute ischemia. I did order and personally reviewed the images of the patient's chest x-ray as described above. She does appear to have a right upper lobe pneumonia. I did order a urine analysis. Blood cultures were obtained. I did treat the patient with Zosyn IV. I did order and review the patient's blood work as noted in the electronic medical record. Her white count is elevated over 16,000. She has mild anemia. Her magnesium is 1.5. I did order 2 g of IV magnesium. I did discuss the test results with the patient and her daughter. I did recommend hospitalization for further care and evaluation including MRI and I did discuss the case with the hospitalist and block and case maker. Impression & Plan Acute cerebrovascular accident, Right upper lobe pneumonia, Hypomagnesemia Discharge Plan Visit Data Chief Complaint: TIA Symptoms Stated Complaint: STROKE SYSTOMS ED Provider: Cesar Guajardo Discharge Problem: Acute cerebrovascular accident, Right upper lobe pneumonia, Hypomagnesemia Forms Stand Alone Forms: My [facility] Prescriptions Prescriptions: No Action loratadine 10 mg Tablet 10 mg PO DAILY PRN (Reason: Allergy Symptoms) RF: 0 fluticasone propionate 50 mcg/actuation spray,suspension 2 spry intranasal DAILY PRN (Reason: Allergy Symptoms) RF: 0 albuterol sulfate [ProAir HFA] 90 mcg/actuation Hfa Aerosol Inhaler 2 puff INHALATION Q4H PRN (Reason: Shortness Of Breath Or Wheezing) RF: 0 nystatin 100,000 unit/gram cream 1 applic topical BID PRN (Reason: Skin Irritation) RF: 0 polymyxin B sulf-trimethoprim 10,000 unit- 1 mg/mL drops 1 drp OPL DAILY PRN (Reason: Allergic Symptoms) RF: 0 atorvastatin 10 mg tablet 10 mg PO QPM RF: 0 clopidogrel 75 mg tablet 75 mg PO QAM RF: 0 levothyroxine 25 mcg tablet 25 mcg PO QAM RF: 0 amlodipine 10 mg tablet 10 mg PO QAM RF: 0 pantoprazole 40 mg tablet,delayed release (DR/EC) 40 mg PO QAM RF: 0 sertraline 25 mg tablet 25 mg PO HS RF: 0 lisinopril 40 mg tablet 40 mg PO QAM RF: 0 furosemide 20 mg tablet 20 mg PO BID RF: 0 metoprolol tartrate 25 mg tablet 12.5 mg PO BID RF: 0 docusate sodium [Colace] 100 mg Capsule 100 mg PO BID PRN (Reason: Constipation) RF: 0 calcium carbonate-vitamin D3 500 mg(1,250mg) -400 unit Tablet 1 tab PO BID RF: 0 Referrals Referrals: Cathleen Infante DO [Primary Care Provider] - Discharge Problem: Right upper lobe pneumonia Qualifiers: Pneumonia type: due to unspecified organism Qualified Code(s): J18.1 - Lobar pneumonia, unspecified organism The scribe's documentation has been prepared under my direction and personally reviewed by me in its entirety. I confirm that the note above accurately reflects all work, treatment, procedures, and medical decision making performed by me.
[2018-07-22] MEDS ORDERED: MAGNESIUM HYDROXIDE SUSP 30 ML UDC PO PRN (20:00)
[2018-07-22] MEDS ORDERED: ONDANSETRON INJ 2 MG/ML 2 ML VIAL IV PRN (20:00)
[2018-07-22] MEDS ORDERED: ALUMINUM/MAGNESIUM SUSP 30 ML UDC PO PRN (20:00)
[2018-07-22] MEDS ORDERED: ACETAMINOPHEN 325 MG TAB PO PRN (20:00)
[2018-07-22] MEDS ORDERED: PHARMACIST DISCHARGE MED REC CONSULT PRN (20:00)
[2018-07-22] MEDS ORDERED: POLYETHYLENE (MIRALAX) 17 GM PACK PO PRN (20:00)
[2018-07-22] MEDS: ALBUT/IPRATROP 3MG/0.5MG NEB 3 ML VIAL NEB SCH (20:12)
[2018-07-22] MEDS ORDERED: MAGNESIUM SULFATE / D5W 1 GM/100 ML BAG IV ONE (20:30)
[2018-07-22] MEDS: CALCIUM 600MG + VIT D 400 IU TAB PO SCH (21:11)
[2018-07-22] MEDS: SERTRALINE HCL 50 MG TABLET PO SCH (21:11)
[2018-07-22] MEDS: ATORVASTATIN 10 MG TAB PO SCH (21:12)
[2018-07-22] MEDS: METOPROLOL TARTRATE 25 MG TAB PO SCH (21:12)
[2018-07-22] MEDS: PIPERACILLIN/TAZOBACTAM 3.375 GM in DEXTROSE 5% 100 ML IV SCH (23:59)
[2018-07-23] MEDS: LEVOTHYROXINE SODIUM 25 MCG TABLET PO SCH (05:57)
[2018-07-23 06:11] LABS: Basophils # (auto) 0.03 K/uL (0-0.2); Basophils % (auto) 0.2 %; Eosinophils # (auto) 0.37 K/uL (0-0.5); Eosinophils % (auto) 2.9 %; Immature Granulocytes # (auto) 0.05 K/uL (0.00-0.02); Immature Granulocytes % (auto) 0.4 %; Lymphocytes # (auto) 1.64 K/uL (1.2-3.4); Mean Corpuscular Hgb Conc 32.3 g/dL (32-36); Mean Corpuscular Volume 80.3 fL (80-100); Mean Platelet Volume 9.5 fL (7.4-10.4); Monocytes # (auto) 1.23 K/uL (0.11-0.59); Monocytes % (auto) 9.7 %; Neutrophils # (auto) 9.32 K/uL (1.4-6.5); Neutrophils % (auto) 73.8 %; Platelet Count 244 K/uL (130-400); RDW Coefficient of Variation 15.5 % (11.5-14.5); RDW Standard Deviation 45.5 fL (36.4-46.3); Red Blood Count 3.86 M/uL (4.2-5.4); White Blood Count 12.64 K/uL (4.8-10.8)
[2018-07-23 06:47] LABS: Albumin Level 2.3 gm/dl (3.4-5.0); BUN Creatinine Ratio 10.8 (10-20); Calcium 7.4 mg/dl (8.5-10.1); Creatinine Clr Calc Pharmacy 45.1 ml/min; Est GFR (Non-African American) 59.5; Magnesium 2.3 mg/dl (1.8-2.4); Potassium 3.2 mmol/L (3.5-5.1)
[2018-07-23 06:51] LABS: Albumin Globulin Ratio 0.7 (0.9-2); Bilirubin,Total 0.8 mg/dl (0.2-1); Globulin 3.2 gm/dl (2.5-4.0); Total Protein 5.5 gm/dl (6.4-8.2)
[2018-07-23] MEDS: ALBUT/IPRATROP 3MG/0.5MG NEB 3 ML VIAL NEB SCH ×2 (07:30→11:22)
[2018-07-23] MEDS: PIPERACILLIN/TAZOBACTAM 3.375 GM in DEXTROSE 5% 100 ML IV SCH ×2 (08:17→16:25)
[2018-07-23] MEDS: CALCIUM 600MG + VIT D 400 IU TAB PO SCH ×2 (08:21→20:22)
[2018-07-23] MEDS: METOPROLOL TARTRATE 25 MG TAB PO SCH ×2 (08:21→20:23)
[2018-07-23] MEDS: PANTOprazole 40 MG TAB PO SCH (08:22)
[2018-07-23] MEDS: CLOPIDOGREL BISULFATE 75 MG TAB PO SCH (08:22)
[2018-07-23] MEDS: POTASSIUM CHLORIDE / WTR 10 MEQ/100 ML PLCT IV SCH ×2 (08:26→10:47)
--- NOTE | 2018-07-23 13:16 | Hospitalist Progress Note ---
Date of Service July 23, 2018 Assessment & Plan (1) Stroke-like symptoms: This is a patient with history strokes and was last discharged from the hospital in May 2018 when she presented with left upper extremity weakness and found to have Acute CVA (cerebrovascular accident) MRI with acute periventricular medial right occipital lobe and subacute infract right cerebellar hemisphere with old right MCA infarct on head CT and was discharged after symptoms resolved with new medication of Plavix as per neurology (aspirin could not be done because of allergy) Patient since was recently seen in the ED on July 14, 2018 for respiratory symptoms and was discharged from the ED the same day because Chest X ray was clear and had presumed diagnosis of bronchitis. Patient was on oral antibiotic of Augmentin Patient was at home when the grand-daughter noted left upper extremity weakness around the noon time of 07/22/18 when patient was using her right upper extremity more to eat rather than hold objects with left arm. also when drinking milk, the liquid coming out left side of mouth as if left sided facial droop. The motor strength of left side got better during the day and then later became worse as patient was reportedly weaker on left side when standing and appeared to be tilting to that side Patient was brought to the ED on 07/22/18. Imaging of CT head with contrast, neck CTA, and head CTA did not appear to show any new acute findings -CT head with contrast : Interval evolution of the right occipital lobe infarct, which was acute on MR brain from 05/10/2018, now chronic. Old right MCA territory infarct. -Neck CTA did note: Mild atherosclerotic plaque at the origin of the left v ertebral artery with less than 50% stenosis. But there is no comparison Neck CTA on May admission and instead Neck MRA was performed on May admission. Patient did have in May admission: carotid ultrasound - right ICA 50-69% stenosis, but Neck CTA in May clarified Atherosclerotic plaque at the right common carotid bifurcation and Calcified and noncalcified plaque along the proximal course of the right ICA with no resulting stenosis. -Patient also found to have right upper lobe pneumonia on Chest X ray for which she was started on Zosyn in the ED -telemetry continues to show sinus rhythm -patient passed dysphagia screening, speech and swallow evaluations with no evidence of dysphagia -able to ambulate with walker but PT notes and nursing that patient has some issues with left gait - not lifting left leg up with gait compared to the right side, continue PT/OT evaluations -Brain MRI is pending -continue Plavix -LDL is 44 and good cholesterol panel, HbA1c pending and patient is not known to be a diabetic -awaiting neurology recommendations (2) Right upper lobe pneumonia: -patient had Augmentin has outpatient for 10 days secondary to acute bronchitis -continue Zosyn as started in the ED -follow up blood cultures History of asthma -as albuterol sulfate inhaler as home medication -prn nebulizers as needed (3) Hypomagnesemia: -07/22/18 admission serum magnesium 1.5, -IV magnesium was given and serum magnesium 2.3 Hypokalemia -serum potassium 3.2 on 07/23/18 -give IV potassium (4) Diarrhea: concern that electrolyte abnormalities form GI losses -C.difficile negative (5) HTN (hypertension): blood pressure slightly elevated on admission on 07/22/18 continue to hold Lasix will resume home dose lisinopril and amlodipine (6) Dyslipidemia: generally well controlled lipid panels -continue home dose atorvastatin 10 mg daily (7) CKD (chronic kidney disease) stage 3, GFR 30-59 ml/min: -monitor renal function (8) Hypothyroidism: Continue levothyroxine (9) Anemia: stable anemia (10) DVT prophylaxis: SCDS/TEDS Subjective Patient denies chest pain. no shortness of breath. no choking. no vomiting. no abdomen pain. she was able to ambulate with walker but PT notes and nursing that patient has some issues with left gait - not lifting left leg up with gait compared to the right side. patient is cooperative of exam. generally the left side is strong. Physical Exam Constitutional: WD/WN, vitals as above Eyes: PERRL, conjunctivae normal, anicteric sclerae EOM intact bilaterally ENMT: external ear and nose normal, oropharynx normal Respiratory: normal respiratory effort, lungs clear to auscultation Cardiovascular: RRR, no murmur, no edema Gastrointestinal (Abdomen): normal bowel sounds, soft, nontender, no hepatosplenomegaly Musculoskeletal: no cyanosis or clubbing, extremities motor strength 5/5 Head/Neck/Chest: normocephalic and head atraumatic Neurologic: PERRL, EOMI, accommodation nl, no face palsy, no dysarthria CN's II-XI intact bilaterally Psychiatric: A+Ox3, euthymic affect Results & Data Vital Signs (Past 12 Hours) Vital Signs Temp Pulse Pulse Resp BP Pulse Ox 07/23/18 12:00 36.9 C 82 21 140/56 L 96 07/23/18 11:24 69 16 97 07/23/18 07:32 58 L 16 95 07/23/18 07:27 36.9 C 56 L 16 114/64 97 07/23/18 04:00 36.8 C 63 19 107/57 L 98 07/23/18 02:14 74 (1) Right upper lobe pneumonia Pneumonia type: due to unspecified organism Qualified Code(s): J18.1 - Lobar pneumonia, unspecified organism
--- NOTE | 2018-07-23 13:35 | Progress Note ---
DATE: 07/23/2018 The patient serves as the chief historian, although she is only a fair historian. The history is supplemented by the chart. 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 The patient does not know what her baseline post-stroke recovery was, but on this background, she was noted, I believe, to wake up from a nap with left arm weakness. She denied any headache or change in vision. She denies any left leg weakness and there is no numbness. At the time of her prior admission, an MRI confirmed the infarct, an echo did not demonstrate a PFO, carotid ultrasound showed a right internal carotid stenosis of 50%-69%. SHE HAS AN ALLERGY TO ASPIRIN, so she was continued on Plavix. An outpatient Zio showed normal sinus rhythm, episodes of SVT, but no AFib or flutter. Stroke alert was called. TPA contraindicated given stroke within [address] shows an evolution of the right SENIOR RESERVATIONS [employer]ENT infarct and an old right MCA infarct. Her CTA of the head and neck showed no aneurysm, focal occlusion or significant stenosis of the vessels of the head, and CTA of the neck showed less than 50% stenosis at the origin of left vert, atherosclerosis without evidence of dissection, focal vessel occlusion or stenosis in the cervical arteries, scattered ground-glass infiltrates with bronchial wall thickening and scattered subsegmental endobronchial debris in the right upper lobe concerning for infectious bronchiolitis. The patient has been treated for an upper respiratory tract infection. On admission, her white count was 16.3, H and H 11.2 and 34, platelet count 259. INR 1.2, PTT 26.2. Chemistry profile on admission notable for glucose of 138, calcium 8.2, albumin of 2.8. Urinalysis; trace blood. Negative nasal MRSA. Electrocardiogram; sinus bradycardia, incomplete right bundle branch block. VITAL SIGNS: 114/64, 69, 16, 36.9, 97 on room air. PAST MEDICAL HISTORY: As above, hypothyroidism, chronic kidney disease, dyslipidemia, depression, osteoporosis, osteoarthritis, renal lesion - chronic. PAST SURGICAL HISTORY: Left hip surgery. FAMILY HISTORY: Cancer, diabetes, hypertension, kidney disease. No significant family history otherwise. SOCIAL HISTORY: Nonsmoker. Does drink alcohol. PHYSICAL EXAMINATION: The patient is awake and alert. She is oriented to hospital, month, and day of week, but not month or year. There is no right/left confusion. No aphasia. She is an elderly female, in no distress, only a fair historian. She denies any medical history. The patient appears stated age. Left eye is greater than right eye, both are postsurgical. There are normal visual wick, but there is visual extinction to the left. Speech appears normal. There is a flattening of the left nasolabial fold. Tongue is midline. No facial anesthesia is noted. Upper extremity strength appears full. There may be a minor drift in the left upper extremity. There is mild weakness of the left iliopsoas and quadriceps. The patient's cooperation is somewhat inconsistent given that she does not always understand what is requested. Reflexes are brisker in the left upper. Bilateral lowers are symmetric. Toes are downgoing. She is mildly clumsy on left [id number]. Sensory examination is intact to light touch and temperature bilaterally. IMPRESSION: New left weakness in a patient with right middle cerebral artery and right posterior cerebral artery infarction. Unclear if this is an infectious exacerbation of underlying neurologic deficit or if this is a new stroke. PLAN: MRI brain. Further decision depending on the results of the aforementioned. If there is a new infarction and it is a small vessel, we could potentially consider trying Brilinta. If there is a new infarction, I would recommend further cardiac monitoring. I would be certainly concerned about empirically recommending anticoagulants in a patient with these medical comorbidities. I will follow with you. FREEMAN
[2018-07-23] MEDS: AMLODIPINE BESYLATE 5 MG TAB PO SCH (16:25)
[2018-07-23] MEDS: SERTRALINE HCL 50 MG TABLET PO SCH (20:22)
[2018-07-23] MEDS: ATORVASTATIN 10 MG TAB PO SCH (20:26)
[2018-07-24] MEDS: PIPERACILLIN/TAZOBACTAM 3.375 GM in DEXTROSE 5% 100 ML IV SCH ×4 (00:29→23:47)
[2018-07-24 06:22] LABS: Estimated Average Glucose 123 mg/dl; Hemoglobin A1C 5.9 % (4.5-5.6)
[2018-07-24 06:53] LABS: BUN Creatinine Ratio 8.6 (10-20); Calcium 7.8 mg/dl (8.5-10.1); Creatinine Clr Calc Pharmacy 43.3 ml/min; Est GFR (African American) 65.4; Est GFR (Non-African American) 56.4; Potassium 3.9 mmol/L (3.5-5.1)
[2018-07-24] MEDS: LEVOTHYROXINE SODIUM 25 MCG TABLET PO SCH (08:01)
[2018-07-24] MEDS: AMLODIPINE BESYLATE 5 MG TAB PO SCH (08:01)
[2018-07-24] MEDS: METOPROLOL TARTRATE 25 MG TAB PO SCH ×2 (08:01→20:20)
[2018-07-24] MEDS: PANTOprazole 40 MG TAB PO SCH (08:01)
[2018-07-24] MEDS: CLOPIDOGREL BISULFATE 75 MG TAB PO SCH (08:02)
[2018-07-24] MEDS: CALCIUM 600MG + VIT D 400 IU TAB PO SCH ×2 (08:02→20:19)
--- NOTE | 2018-07-24 09:27 | Magnetic Resonance Report ---
MR brain wo con HISTORY: 82 years-old Female LUE weakness acute left upper extremity weakness COMPARISON: CT head, CTA head and neck 07/22/2018, brain MRI 05/10/2018 TECHNIQUE: Multiplanar multisequence MRI of the brain was obtained without the use of IV contrast. FINDINGS: There is no restricted diffusion to suggest acute or subacute infarction. Midline structures includin g the corpus callosum, brainstem, optic chiasm, pituitary and pineal glands appear unremarkable on th e sagittal T1 series. No cerebellar tonsillar herniation. Degenerative changes noted about the imaged cervical spine. No acute intracranial hemorrhage, midline shift, abnormal extra-axial collection, hydrocephalus or in tracranial mass identified. Age-related involutional changes with moderate chronic microvascular isch emic disease. Gliosis and encephalomalacia from remote MCA and right occipital lobe infarcts. Major f low voids at the level of the skull base appear patent. Mastoid air cells are generally clear. Mild r ightward bowing and spurring of the nasal septum. Moderate mucosal thickening of the right frontal an d anterior ethmoid air cells. Mild mucosal thickening is noted throughout the remainder of the parana toya sinuses. Soft tissues and orbits are unremarkable. There are a few indeterminate scattered areas of decreased T1 marrow signal throughout the calvarium, notably a 1.4 cm lesion of the right frontal bone and 1.3 cm lesion of the right parietal calvarium, both of which demonstrate slightly increased signal on the diffusion-weighted images and are unchanged from comparison. IMPRESSION: 1. No acute intracranial abnormality identified, specifically no acute or subacute infarction. 2. Age-related involutional changes with moderate chronic microvascular ischemic disease. Gliosis and encephalomalacia related to remote infarcts about the right MCA distribution and right occipital lob e. 3. Indeterminate areas of decreased T1 marrow signal about the right frontal and parietal calvarium r edemonstrated, unchanged from comparison. The above report was generated using voice recognition software. It may contain grammatical, syntax o r spelling errors. Electronically signed by: Jaime Chaparro M.D. 07/24/2018 9:26 AM
--- NOTE | 2018-07-24 10:45 | Hospitalist Progress Note ---
Date of Service July 24, 2018 Assessment & Plan (1) Stroke-like symptoms: This is a patient with history strokes and was last discharged from the hospital in May 2018 when she presented with left upper extremity weakness and found to have Acute CVA (cerebrovascular accident) MRI with acute periventricular medial right occipital lobe and subacute infract right cerebellar hemisphere with old right MCA infarct on head CT and was discharged after symptoms resolved with new medication of Plavix as per neurology (aspirin could not be done because of allergy) Patient since was recently seen in the ED on July 14, 2018 for respiratory symptoms and was discharged from the ED the same day because Chest X ray was clear and had presumed diagnosis of bronchitis. Patient was on oral antibiotic of Augmentin Patient was at home when the grand-daughter noted left upper extremity weakness around the noon time of 07/22/18 when patient was using her right upper extremity more to eat rather than hold objects with left arm. also when drinking milk, the liquid coming out left side of mouth as if left sided facial droop. The motor strength of left side got better during the day and then later became worse as patient was reportedly weaker on left side when standing and appeared to be tilting to that side Patient was brought to the ED on 07/22/18. Imaging of CT head with contrast, neck CTA, and head CTA did not appear to show any new acute findings -CT head with contrast : Interval evolution of the right occipital lobe infarct, which was acute on MR brain from 05/10/2018, now chronic. Old right MCA territory infarct. -Neck CTA did note: Mild atherosclerotic plaque at the origin of the left v ertebral artery with less than 50% stenosis. But there is no comparison Neck CTA on May admission and instead Neck MRA was performed on May admission. Patient did have in May admission: carotid ultrasound - right ICA 50-69% stenosis, but Neck CTA in May clarified Atherosclerotic plaque at the right common carotid bifurcation and Calcified and noncalcified plaque along the proximal course of the right ICA with no resulting stenosis. -Patient also found to have right upper lobe pneumonia on Chest X ray for which she was started on Zosyn in the ED -telemetry continues to show sinus rhythm -patient passed dysphagia screening, speech and swallow evaluations with no evidence of dysphagia -able to ambulate with walker but PT notes and nursing that patient has some issues with left gait - not lifting left leg up with gait compared to the right side, continue PT/OT evaluations -LDL is 44 and good cholesterol panel, HbA1c 5.9 -Brain MRI completed on 07/24/18; no acute or subacute infarction. Age-related involutional changes with moderate chronic microvascular ischemic disease. Gliosis and encephalomalacia related to remote infarcts about the right MCA distribution and right occipital lobe. Indeterminate areas of decreased T1 marrow signal about the right frontal and parietal calvarium redemonstrated, unchanged from comparison -continue Plavix; awaiting neurology recommendations (2) Right upper lobe pneumonia: -patient had Augmentin has outpatient for 10 days secondary to acute bronchitis -continue Zosyn as started in the ED -07/22/18 blood culture with no growth to date, will continue IV Zosyn for now as leukocytosis is downtrending from 16K to 12 K, will plan on repeat CXR on 07/25/18 History of asthma -as albuterol sulfate inhaler as home medication -prn nebulizers as needed (3) Hypomagnesemia: -07/22/18 admission serum magnesium 1.5, -IV magnesium was given and serum magnesium 2.3 on 07/23/18 Hypokalemia -serum potassium 3.2 on 07/23/18 -given IV potassium and serum potassium is 3.9 on 07/24/18 (4) Diarrhea: initial concerns that electrolyte abnormalities from GI losses -C.difficile negative (5) HTN (hypertension): blood pressure controlled -will hold lasix. will hold lisinopril for now as blood pressure controlled for now off of it, continue amlodipine (6) Dyslipidemia: generally well controlled lipid panels -continue home dose atorvastatin 10 mg daily (7) CKD (chronic kidney disease) stage 3, GFR 30-59 ml/min: -monitor renal function (8) Hypothyroidism: Continue levothyroxine (9) Anemia: stable anemia (10) DVT prophylaxis: SCDS/TEDS Subjective Patient appears to have generally good mobility. seen able to eat by herself. she had MRI brain which did not show acute findings. breathing on room air. no fever. leukocytosis downtrending. patient denies acute pain. no vomiting. denies choking. no headache. no dizziness Physical Exam Constitutional: WD/WN, vitals as above Eyes: PERRL, conjunctivae normal, anicteric sclerae EOM intact bilaterally ENMT: external ear and nose normal, oropharynx normal Neck: normal visual inspection and trachea midline Respiratory: normal respiratory effort, lungs clear to auscultation Cardiovascular: RRR, no murmur, no edema Gastrointestinal (Abdomen): normal bowel sounds, soft, nontender, no hepatosplenomegaly Musculoskeletal: no cyanosis or clubbing, extremities motor strength 5/5 Head/Neck/Chest: normocephalic and head atraumatic Neurologic: PERRL, EOMI, accommodation nl, no face palsy, no dysarthria CN's II-XI intact bilaterally Psychiatric: A+Ox3, euthymic affect Results & Data Vital Signs (Past 12 Hours) Vital Signs Temp Pulse Pulse Resp BP BP Pulse Ox 07/24/18 07:31 60 07/24/18 07:23 37.1 C 55 L 18 111/42 L 95 07/24/18 03:56 37.1 C 66 16 126/57 L 94 07/24/18 00:28 37.2 C 70 18 103/50 L 95 07/23/18 23:35 74 (1) Right upper lobe pneumonia Pneumonia type: due to unspecified organism Qualified Code(s): J18.1 - Lobar pneumonia, unspecified organism
--- NOTE | 2018-07-24 14:15 | Neurology Progress Note ---
Date of Service July 24, 2018 Assessment & Plan (1) Left arm weakness: 1. MRi no acute findings 2. optimize DM, HLD, HTN, LDL <70 3. PT/OT for discharge needs 4. CTA head and neck no significant stenosis 5. continue plavix 75 mg unable to use aspirin due to allergic reaction 6. fall precautions 7. out patient ZIO was done after previous admission 8. weakness was progressive over 12 hours and likely due to the pneumonia Supervising Physician Co-Signing Physician Notes I have seen and discussed above patient with Dr Hansa Awan, neurology PT seen and examined, appears at her baseline (according to pt) Min flat L NLF.extinguishes image to left. No dysarthria. Equal UE strength, LLE appears improved. Suspect transient worsening of underlying neurologic deficit related to pneumonic process. MRI brain, no new event. Continue Plavix. Will sign off. SAMAN Awan MD Jan Jonas is an 82 year old female who has a PMH of HTN, Pre-DM, hypothyroidism, osteoporosis, history of CVA most recently in 05/2018 who presents to [facility] ED secondary to left-sided weakness that was noticed at 12 PM. She lives with granddaughter in law family. When she awoke at 12 noon it was noticed she had left upper extremity weakness and difficulty walking leaning to left side. She also had difficulty using LUE and was using R arm to support it. Granddaughter did not notice any slurred speech or facial drop. She did complete a 10 day course of augmentin secondary to dx of Bronchitis. She required nebulizer treatments but family feels symptoms are improving. Spoke with Debbie and he states the episode started at night and got slowly increased and was worse in the am. Currently she states she is doing well and was up walking earlier with walker. denies CP, SOB, abdominal pain, vision changes bowel or bladder issues, N, V. 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, hip flex right 4+/5, left 4/5 no pronator drift Results & Data Vital Signs (Past 12 Hours) Vital Signs Temp Pulse Pulse Resp BP BP Pulse Ox 07/24/18 11:00 36.5 C 58 L 18 117/51 L 98 07/24/18 07:31 60 07/24/18 07:23 37.1 C 55 L 18 111/42 L 95 07/24/18 03:56 37.1 C 66 16 126/57 L 94 Laboratory Results Abnormal lab results 07/23/18 07/24/18 Range/Units 05:40 06:01 Carbon Dioxide 33 H (21-32) mmol/L BUN/Creatinine Ratio 8.6 L (10-20) Hemoglobin A1c 5.9 H (4.5-5.6) % Calcium 7.8 L (8.5-10.1) mg/dl Diagnostic Findings MRI brain- No acute intracranial abnormality identified, specifically no acute or subacute infarction. Age-related involutional changes with moderate chronic microvascular ischemic disease. Gliosis and encephalomalacia related to remote infarcts about the right MCA distribution and right occipital lobe. Indeterminate areas of decreased T1 marrow signal about the right frontal and parietal calvarium redemonstrated, unchanged from comparison.
[2018-07-24] MEDS: SERTRALINE HCL 50 MG TABLET PO SCH (20:18)
[2018-07-24] MEDS: ATORVASTATIN 10 MG TAB PO SCH (20:19)
[2018-07-25] MEDS: LEVOTHYROXINE SODIUM 25 MCG TABLET PO SCH (06:19)
[2018-07-25 06:58] LABS: Creatinine Clr Calc Pharmacy 42.3 ml/min; Est GFR (African American) 65.4; Est GFR (Non-African American) 56.4; Potassium 4.1 mmol/L (3.5-5.1)
[2018-07-25] MEDS: PIPERACILLIN/TAZOBACTAM 3.375 GM in DEXTROSE 5% 100 ML IV SCH (07:48)
[2018-07-25] MEDS: METOPROLOL TARTRATE 25 MG TAB PO SCH (07:49)
[2018-07-25] MEDS: CLOPIDOGREL BISULFATE 75 MG TAB PO SCH (07:50)
[2018-07-25] MEDS: PANTOprazole 40 MG TAB PO SCH (07:50)
[2018-07-25] MEDS: CALCIUM 600MG + VIT D 400 IU TAB PO SCH (07:51)
[2018-07-25] MEDS: AMLODIPINE BESYLATE 5 MG TAB PO SCH (07:51)
[2018-07-25 08:28] LABS: Basophils # (auto) 0.04 K/uL (0-0.2); Basophils % (auto) 0.4 %; Eosinophils # (auto) 0.49 K/uL (0-0.5); Eosinophils % (auto) 4.9 %; Hematocrit (blood only) 33.3 % (37-47); Hemoglobin 10.5 g/dL (12.0-16.0); Immature Granulocytes # (auto) 0.03 K/uL (0.00-0.02); Immature Granulocytes % (auto) 0.3 %; Lymphocytes # (auto) 1.71 K/uL (1.2-3.4); Lymphocytes % (auto) 17.1 %; Mean Corpuscular Volume 82.2 fL (80-100); Mean Platelet Volume 9.6 fL (7.4-10.4); Monocytes # (auto) 1.09 K/uL (0.11-0.59); Monocytes % (auto) 10.9 %; Neutrophils # (auto) 6.64 K/uL (1.4-6.5); Neutrophils % (auto) 66.4 %; Platelet Count 284 K/uL (130-400); RDW Coefficient of Variation 15.4 % (11.5-14.5); RDW Standard Deviation 46.5 fL (36.4-46.3); Red Blood Count 4.05 M/uL (4.2-5.4)
[2018-07-25 08:45] LABS: Mean Corpuscular Hgb Conc 31.5 g/dL (32-36)
--- NOTE | 2018-07-25 09:01 | XRay Report ---
XR chest 2V routine CLINICAL HISTORY: 82 years-old Female presenting with follow up lung infiltrates, confusion, shortnes s of breath. TECHNIQUE: Portable upright AP view of the chest was obtained. COMPARISON: Successful . FINDINGS: Atherosclerosis of the aortic arch. Cardiac silhouette normal in size. Pulmonary vascular prominence with coarsened lung markings. Bronchial wall thickening may be present. Mildly low lung volumes. No a symmetric opacities in the right upper lung on the current exam. No large effusion or pneumothorax. D egenerative changes of the thoracic spine. Suspected osteopenia. External leads project over the righ t upper quadrant degrading evaluation of this region. IMPRESSION: 1. No asymmetric right upper lung infiltrates on the current exam. 2. Mild volume overload and congestive change. No sridevi pulmonary edema. Electronically signed by: Paul Rojo M.D. 07/25/2018 9:00 AM
--- NOTE | 2018-07-25 11:02 | Hospitalist Progress Note ---
Date of Service July 25, 2018 Assessment & Plan (1) Stroke-like symptoms: This is a patient with history strokes and was last discharged from the hospital in May 2018 when she presented with left upper extremity weakness and found to have Acute CVA (cerebrovascular accident) MRI with acute periventricular medial right occipital lobe and subacute infract right cerebellar hemisphere with old right MCA infarct on head CT and was discharged after symptoms resolved with new medication of Plavix as per neurology (aspirin could not be done because of allergy) Patient since was recently seen in the ED on July 14, 2018 for respiratory symptoms and was discharged from the ED the same day because Chest X ray was clear and had presumed diagnosis of bronchitis. Patient was on oral antibiotic of Augmentin Patient was at home when the grand-daughter noted left upper extremity weakness around the noon time of 07/22/18 when patient was using her right upper extremity more to eat rather than hold objects with left arm. also when drinking milk, the liquid coming out left side of mouth as if left sided facial droop. The motor strength of left side got better during the day and then later became worse as patient was reportedly weaker on left side when standing and appeared to be tilting to that side Patient was brought to the ED on 07/22/18. Imaging of CT head with contrast, neck CTA, and head CTA did not appear to show any new acute findings History of strokes in the past (periventricular medial right occipital lobe and subacute infract right cerebellar hemisphere and right MCA infarct on head). this admission with Stroke Like symptoms secondary to right upper lobe pneumonia (no new stroke on this admission) -CT head with contrast : Interval evolution of the right occipital lobe infarct, which was acute on MR brain from 05/10/2018, now chronic. Old right MCA territory infarct. -Neck CTA did note: Mild atherosclerotic plaque at the origin of the left vertebral artery with less than 50% stenosis. But there is no comparison Neck CTA on May admission and instead Neck MRA was performed on May admission. Patient did have in May admission: carotid ultrasound - right ICA 50-69% stenosis, but Neck CTA in May clarified Atherosclerotic plaque at the right common carotid bifurcation and Calcified and noncalcified plaque along the proximal course of the right ICA with no resulting stenosis. -Patient also found to have right upper lobe pneumonia on Chest X ray for which she was started on Zosyn in the ED -telemetry continues to show sinus rhythm -patient passed dysphagia screening, speech and swallow evaluations with no evidence of dysphagia -able to ambulate with walker but PT notes and nursing that patient has some issues with left gait - not lifting left leg up with gait compared to the right side, continue PT/OT evaluations -LDL is 44 and good cholesterol panel, HbA1c 5.9 -Brain MRI completed on 07/24/18; no acute or subacute infarction. Age-related involutional changes with moderate chronic microvascular ischemic disease. Gliosis and encephalomalacia related to remote infarcts about the right MCA distribution and right occipital lobe. Indeterminate areas of decreased T1 marrow signal about the right frontal and parietal calvarium redemonstrated, unchanged from comparison -continue Plavix -07/25/18 Discharge to home as no focal left sided deficits at this time. Neurology service diagnosis that the initial stroke-like symptoms of left sided weakness was due to transient worsening of underlying neurologic deficit related to pneumonic process. No new stroke was found on imaging. (2) Right upper lobe pneumonia: diagnosis or right upper lobe pneumonia on this admission and resolution of right upper lobe pneumonia at end of the hospital admission, -patient had Augmentin has outpatient for 10 days secondary to acute bronchitis -blood cultures no growth to date -From admission on 07/22/18, patient was treated with IV antibiotics of Zosyn up to 07/25/18 when Chest X ray showed resolution of right upper lobe pneumonia -since patient had already been on Augmentin for 10 days at home previously, the pneumonia appears to be resolved. No additional antibiotics to be prescribed on discharge History of asthma -as albuterol sulfate inhaler as home medication -prn nebulizers as needed (3) Hypomagnesemia: -07/22/18 admission serum magnesium 1.5, -IV magnesium was given and serum magnesium 2.3 on 07/23/18 Hypokalemia -serum potassium 3.2 on 07/23/18 -given IV potassium and serum potassium is 3.9 on 07/24/18 (4) Diarrhea: initial concerns that electrolyte abnormalities from GI losses -C.difficile negative (5) HTN (hypertension): blood pressure controlled -will hold lasix. will hold lisinopril for now as blood pressure controlled for now off of it, continue amlodipine -Patient's blood pressure appears controlled with amlodipine 10 mg daily alone, patient should hold off on Lisinopril 40 mg daily and Furosemide 20 mg BID. Patient should be re-assessed by primary medical doctor with repeat blood pressure test before resuming Lisinopril or Furosemide (goal target blood pressure is less than 140/90 but above 100/60) 07/27/2018 9:40 AM Provider Nolan Moore MD [facility] 09/20/2018 1:40 PM Provider Cathleen Infante DO Department [facility] (6) Dyslipidemia: generally well controlled lipid panels -continue home dose atorvastatin 10 mg daily (7) CKD (chronic kidney disease) stage 3, GFR 30-59 ml/min: -stable renal function (8) Hypothyroidism: Continue levothyroxine (9) Anemia: stable anemia (10) DVT prophylaxis: SCDS/TEDS while inpatient Discharge Diagnosis History of strokes in the past (periventricular medial right occipital lobe and subacute infract right cerebellar hemisphere and right MCA infarct on head). this admission with Stroke Like symptoms secondary to right upper lobe pneumonia (no new stroke on this admission), diagnosis or right upper lobe pneumonia on this admission and resolution of right upper lobe pneumonia at end of the hospital admission, chronic kidney disease stage 3, hypothyroidism Subjective Motor strength on both sides intact. patient continues to be breathing on room air. no shortness of breath and no wheezing. WBC downtrended to 10,000. no fever, right upper lobe pneumonia resolved on CXR. no vomiting. patient eating well. discussed with patient's grand children on telephone about discharge plans. patient pleased to be ready for discharge. blood pressure controlled Physical Exam Constitutional: WD/WN, vitals as above Eyes: PERRL, conjunctivae normal, anicteric sclerae EOM intact bilaterally ENMT: external ear and nose normal, oropharynx normal Neck: normal visual inspection and trachea midline Respiratory: normal respiratory effort, lungs clear to auscultation Cardiovascular: RRR, no murmur, no edema Gastrointestinal (Abdomen): normal bowel sounds, soft, nontender, no hepatosplenomegaly Musculoskeletal: no cyanosis or clubbing, extremities motor strength 5/5 Head/Neck/Chest: normocephalic and head atraumatic Neurologic: PERRL, EOMI, accommodation nl, no face palsy, no dysarthria CN's II-XI intact bilaterally Psychiatric: A+Ox3, euthymic affect Results & Data Vital Signs (Past 12 Hours) Vital Signs Temp Pulse Pulse Resp BP BP Pulse Ox 07/25/18 09:23 36.6 C 86 18 128/50 L 96 07/25/18 07:29 37.0 C 55 L 55 L 18 131/69 95 07/25/18 04:02 36.8 C 55 L 18 128/50 L 96 07/25/18 01:20 62 07/24/18 23:59 37 C 67 16 117/41 L 96 (1) Right upper lobe pneumonia Pneumonia type: due to unspecified organism Qualified Code(s): J18.1 - Lobar pneumonia, unspecified organism
--- NOTE | 2018-07-25 11:09 | Discharge Summary ---
Date of Service July 25, 2018 Admission HPI Per Admitting Provider This is an 82-year-old female who has a significant past medical history of HTN, Pre-DM, hypothyroidism, osteoporosis, history of CVA most recently in 05/2018 who presents to [facility] ED secondary to left-sided weakness that was noticed at 12 PM. Patient lives with granddaughter in law family. When she awoke at 12 noon it was noticed she had left upper extremity weakness and difficulty walking leaning to left side. She also had difficulty using LUE and was using R arm to support it. Pt was last known well at approx 11pm last evening. Granddaughter did not notice any slurred speech or facial drop. Currently feels symptoms have improved slightly since presentation this morning, specifically with walking. Pt denies and lightheaded, dizziness, chest pain, palpitations, syncope, sob at rest, n/v, abdominal pain. Pt recently completed 10 day course of augmentin secondary to dx of Bronchitis. Seen in outpt setting on 07/12 and again in ED 07/14. Initially required nebulizer treatments but family feels symptoms are improving. Continues with cough but not productive. Also since starting antibiotics pt has had 4-5 loose BM/Diarrhea. Overall appetite is stable and no sridevi weight loss. Pt/Family concerned why she keeps having strokes and how to prevent them. Of significance pt recently hospitalized 05/09-05/11 for acute right occipital lobe CVA. Initial CT negative for acute infarct but did reveal old right MCA territory infarct. MRI confirmed right occipital lobe infarct. Echocardiogram performed at time and did not demonstrate PFO. Carotid ultrasoound - right ICA 50-69% stenosis. She has allergy to ASA so recommended to continue Plavix 75mg daily. Outpatient ZIO patch - normal sinus rhythm average rate 58 bpm, episodes of SVT but no episodes of A. fib or flutter. Admission Exam Per Admitting Provider Gen: Elderly, F, NAD, sitting up in bed, pleasant, conversing easily Head: Normocephalic, Atraumatic Eyes: Sclera normal, no conjunctival injection, PERRLA, EOMI ENT: Hard of hearing, normal pharynx, mucous membranes moist Neck: supple, no adenopathy, No JVD, no bruit, Resp: Clear to auscultation b/l, expiratory rhonchi noted bilaterally, no wheeze or rales. Normal insp/exp effort, no accessory muscle use CV: Regular rate, regular rhythm, no murmur, rub, gallop, or ectopy Abd: +BS x 4, soft, nontender, nondistended Musculoskeletal: moves extremities active rom x 4, decreased ROM to LUE with abduction, no pain with ROM, Strength 4/5 LUE, strength LLE 5/5, strength intact, good spa therapist strength bilateral Extremities: No edema bilaterally Skin: warm, moist, no rash, negative turgor, cap refill < 2sec Neuro: Alert and oriented x 3, speech normal, good mood/affect, cran nerve 2-12 intact grossly : deferred Principal Diagnosis History of strokes in the past (periventricular medial right occipital lobe and subacute infract right cerebellar hemisphere and right MCA infarct on head). this admission with Stroke Like symptoms secondary to right upper lobe pneumonia (no new stroke on this admission), diagnosis or right upper lobe pneumonia on this admission and resolution of right upper lobe pneumonia at end of the hospital admission, chronic kidney disease stage 3, hypothyroidism Discharge Exam Constitutional WD/WN, vitals as above Eyes PERRL, conjunctivae normal, anicteric sclerae EOM intact bilaterally ENMT external ear and nose normal, oropharynx normal Neck normal visual inspection and trachea midline Respiratory normal respiratory effort, lungs clear to auscultation Cardiovascular RRR, no murmur, no edema Gastrointestinal (Abdomen) normal bowel sounds, soft, nontender, no hepatosplenomegaly Musculoskeletal no cyanosis or clubbing, extremities motor strength 5/5 Head/Neck/Chest: normocephalic and head atraumatic Neurologic PERRL, EOMI, accommodation nl, no face palsy, no dysarthria CN's II-XI intact bilaterally Psychiatric A+Ox3, euthymic affect Discharge Data Allergies Allergy/AdvReac Type Severity Reaction Status Date / Time aspirin Allergy Severe ANAPHYLAXIS, Verified 07/22/18 16:42 SWELLING Consultations 07/22/18 16:59 ED Decision to Admit Stat 07/22/18 20:00 Consult Case Management - Discharge Planning Routine Consult Case Management - Discharge Planning Routine Consult Neurology Routine Ordered Studies 07/22/18 15:34 CT head/brain wo con Stat 07/22/18 15:35 CT angio head w con Stat CT angio neck with con Stat 07/24/18 02:09 MR brain wo con Routine Hospital Course (1) Stroke-like symptoms: This is a patient with history strokes and was last discharged from the hospital in May 2018 when she presented with left upper extremity weakness and found to have Acute CVA (cerebrovascular accident) MRI with acute periventricular medial right occipital lobe and subacute infract right cerebellar hemisphere with old right MCA infarct on head CT and was discharged after symptoms resolved with new medication of Plavix as per neurology (aspirin could not be done because of allergy) Patient since was recently seen in the ED on July 14, 2018 for respiratory symptoms and was discharged from the ED the same day because Chest X ray was clear and had presumed diagnosis of bronchitis. Patient was on oral antibiotic of Augmentin Patient was at home when the grand-daughter noted left upper extremity weakness around the noon time of 07/22/18 when patient was using her right upper extremity more to eat rather than hold objects with left arm. also when drinking milk, the liquid coming out left side of mouth as if left sided facial droop. The motor strength of left side got better during the day and then later became worse as patient was reportedly weaker on left side when standing and appeared to be tilting to that side Patient was brought to the ED on 07/22/18. Imaging of CT head with contrast, neck CTA, and head CTA did not appear to show any new acute findings History of strokes in the past (periventricular medial right occipital lobe and subacute infract right cerebellar hemisphere and right MCA infarct on head). this admission with Stroke Like symptoms secondary to right upper lobe pneumonia (no new stroke on this admission) -CT head with contrast : Interval evolution of the right occipital lobe infarct, which was acute on MR brain from 05/10/2018, now chronic. Old right MCA territory infarct. -Neck CTA did note: Mild atherosclerotic plaque at the origin of the left vertebral artery with less than 50% stenosis. But there is no comparison Neck CTA on May admission and instead Neck MRA was performed on May admission. Patient did have in May admission: carotid ultrasound - right ICA 50-69% stenosis, but Neck CTA in May clarified Atherosclerotic plaque at the right common carotid bifurcation and Calcified and noncalcified plaque along the proximal course of the right ICA with no resulting stenosis. -Patient also found to have right upper lobe pneumonia on Chest X ray for which she was started on Zosyn in the ED -telemetry continues to show sinus rhythm -patient passed dysphagia screening, speech and swallow evaluations with no evidence of dysphagia -able to ambulate with walker but PT notes and nursing that patient has some issues with left gait - not lifting left leg up with gait compared to the right side, continue PT/OT evaluations -LDL is 44 and good cholesterol panel, HbA1c 5.9 -Brain MRI completed on 07/24/18; no acute or subacute infarction. Age-related involutional changes with moderate chronic microvascular ischemic disease. Gliosis and encephalomalacia related to remote infarcts about the right MCA distribution and right occipital lobe. Indeterminate areas of decreased T1 marrow signal about the right frontal and parietal calvarium redemonstrated, unchanged from comparison -continue Plavix -07/25/18 Discharge to home as no focal left sided deficits at this time. Neurology service diagnosis that the initial stroke-like symptoms of left sided weakness was due to transient worsening of underlying neurologic deficit related to pneumonic process. No new stroke was found on imaging. (2) Right upper lobe pneumonia: diagnosis or right upper lobe pneumonia on this admission and resolution of right upper lobe pneumonia at end of the hospital admission, -patient had Augmentin has outpatient for 10 days secondary to acute bronchitis -blood cultures no growth to date -From admission on 07/22/18, patient was treated with IV antibiotics of Zosyn up to 07/25/18 when Chest X ray showed resolution of right upper lobe pneumonia -since patient had already been on Augmentin for 10 days at home previously, the pneumonia appears to be resolved. No additional antibiotics to be prescribed on discharge History of asthma -as albuterol sulfate inhaler as home medication -prn nebulizers as needed (3) Hypomagnesemia: -07/22/18 admission serum magnesium 1.5, -IV magnesium was given and serum magnesium 2.3 on 07/23/18 Hypokalemia -serum potassium 3.2 on 07/23/18 -given IV potassium and serum potassium is 3.9 on 07/24/18 (4) Diarrhea: initial concerns that electrolyte abnormalities from GI losses -C.difficile negative (5) HTN (hypertension): blood pressure controlled -will hold lasix. will hold lisinopril for now as blood pressure controlled for now off of it, continue amlodipine -Patient's blood pressure appears controlled with amlodipine 10 mg daily alone, patient should hold off on Lisinopril 40 mg daily and Furosemide 20 mg BID. Patient should be re-assessed by primary medical doctor with repeat blood pressure test before resuming Lisinopril or Furosemide (goal target blood pressure is less than 140/90 but above 100/60) 07/27/2018 9:40 AM Provider Nolan Moore MD [facility] 09/20/2018 1:40 PM Provider Cathleen Infante DO Department [facility] (6) Dyslipidemia: generally well controlled lipid panels -continue home dose atorvastatin 10 mg daily (7) CKD (chronic kidney disease) stage 3, GFR 30-59 ml/min: -stable renal function (8) Hypothyroidism: Continue levothyroxine (9) Anemia: stable anemia (10) DVT prophylaxis: SCDS/TEDS while inpatient Discharge Diagnosis History of strokes in the past (periventricular medial right occipital lobe and subacute infract right cerebellar hemisphere and right MCA infarct on head). this admission with Stroke Like symptoms secondary to right upper lobe pneumonia (no new stroke on this admission), diagnosis or right upper lobe pneumonia on this admission and resolution of right upper lobe pneumonia at end of the hospital admission, chronic kidney disease stage 3, hypothyroidism Total Time Total Time Spent Total Time Spent (In Minutes): 40 minutes Total Time Includes: Examination of the Patient, Discharge Planning, Medication Reconciliation and 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 With Other Providers Discharge Plan Discharge Items Patient Disposition: Home - Self-Care Reason For Visit: L SIDED WEAKNESS, CVA, ASP PNA Discharge Diagnosis: History of strokes in the past (periventricular medial right occipital lobe and subacute infract right cerebellar hemisphere and right MCA infarct on head). this admission with Stroke Like symptoms secondary to right upper lobe pneumonia (no new stroke on this admission), diagnosis or right upper lobe pneumonia on this admission and resolution of right upper lobe pneumonia at end of the hospital admission, chronic kidney disease stage 3, hypothyroidism Condition: Good Discharge Goals: Improve disease control Activity: Resume your previous activity Non-emergency contact: Primary Care Provider Call non-emergency contact if: you have any medication questions Follow-up/Referrals: Cathleen Infante DO [Primary Care Provider] - Diet: Heart Healthy Addtl Provider Instructions: Discharge to home Neurology service diagnosis that the initial stroke-like symptoms of left sided weakness was due to transient worsening of underlying neurologic deficit related to pneumonic process. No new stroke was found on imaging. From admission on 07/22/18, patient was treated with IV antibiotics of Zosyn up to 07/25/18 when Chest X ray showed resolution of right upper lobe pneumonia Since patient had already been on Augmentin for 10 days at home previously, the pneumonia appears to be resolved. No additional antibiotics to be prescribed on discharge Patient's blood pressure appears controlled with amlodipine 10 mg daily alone, patient should hold off on Lisinopril 40 mg daily and Furosemide 20 mg BID. Patient should be re-assessed by primary medical doctor with repeat blood pressure test before resuming Lisinopril or Furosemide (goal target blood pressure is less than 140/90 but above 100/60) 07/27/2018 9:40 AM Provider Nolan Moore MD [facility] 09/20/2018 1:40 PM Provider Cathleen Infante DO Department [facility] Prescriptions: Continued loratadine 10 mg Tablet 10 mg PO DAILY PRN (Reason: Allergy Symptoms) RF: 0 fluticasone propionate 50 mcg/actuation spray,suspension 2 spry intranasal DAILY PRN (Reason: Allergy Symptoms) RF: 0 albuterol sulfate [ProAir HFA] 90 mcg/actuation Hfa Aerosol Inhaler 2 puff INHALATION Q4H PRN (Reason: Shortness Of Breath Or Wheezing) RF: 0 nystatin 100,000 unit/gram cream 1 applic topical BID PRN (Reason: Skin Irritation) RF: 0 polymyxin B sulf-trimethoprim 10,000 unit- 1 mg/mL drops 1 drp OPL DAILY PRN (Reason: Allergic Symptoms) RF: 0 atorvastatin 10 mg tablet 10 mg PO QPM RF: 0 clopidogrel 75 mg tablet 75 mg PO QAM RF: 0 levothyroxine 25 mcg tablet 25 mcg PO QAM RF: 0 amlodipine 10 mg tablet 10 mg PO QAM RF: 0 pantoprazole 40 mg tablet,delayed release (DR/EC) 40 mg PO QAM RF: 0 sertraline 25 mg tablet 25 mg PO HS RF: 0 metoprolol tartrate 25 mg tablet 12.5 mg PO BID RF: 0 docusate sodium [Colace] 100 mg Capsule 100 mg PO BID PRN (Reason: Constipation) RF: 0 calcium carbonate-vitamin D3 500 mg(1,250mg) -400 unit Tablet 1 tab PO BID RF: 0 Discontinued lisinopril 40 mg tablet 40 mg PO QAM RF: 0 furosemide 20 mg tablet 20 mg PO BID RF: 0 Stand-Alone Forms: [facility] Discharge Orders: Discharge Order (Routine); Ordered 07/25/18 Ordered By: Juan Lo Admission Data Admit Date/Time: 07/22/18 17:52 Attending Provider: Juan Lo Admit Provider: Juan Lo Primary Care Provider: Cathleen Infante Other Providers: Juan Lo ; Hansa Awan Service: Telemetry Medical
[2018-07-25] MEDS ORDERED: STROKE PATIENT DISCHARGE ONE (14:00)
== END 2018-07-25 17:14 | disposition home or self-care (01) | DRG 195 ==
LOC: ED 15:15 → 2N 17:52

== ENCOUNTER 2018-11-27 19:47 | Inpatient (IN) ==
[2018-11-27] MEDS ORDERED: METOPROLOL TARTRATE 1 MG/ML VIAL IV STA ×2 (23:00→23:52)
[2018-11-27 23:15] LABS: Basophils # (auto) 0.05 K/uL (0-0.2); Basophils % (auto) 0.5 %; Eosinophils % (auto) 2.7 %; Hematocrit (blood only) 40.5 % (37-47); Hemoglobin 12.7 g/dL (12.0-16.0); Immature Granulocytes # (auto) 0.03 K/uL (0.00-0.02); Immature Granulocytes % (auto) 0.3 %; Lymphocytes # (auto) 1.98 K/uL (1.2-3.4); Lymphocytes % (auto) 17.8 %; Mean Corpuscular Hemoglobin 25.1 pg (25-34); Mean Corpuscular Hgb Conc 31.4 g/dL (32-36); Mean Corpuscular Volume 80.2 fL (80-100); Mean Platelet Volume 10.4 fL (7.4-10.4); Neutrophils # (auto) 7.74 K/uL (1.4-6.5); Neutrophils % (auto) 69.7 %; Platelet Count 278 K/uL (130-400); RDW Coefficient of Variation 15.6 % (11.5-14.5); RDW Standard Deviation 45.7 fL (36.4-46.3); Red Blood Count 5.05 M/uL (4.2-5.4)
[2018-11-27 23:27] LABS: INR 1.2 (0.9-1.1); Partial Thromboplastin Ratio 0.9; Partial Thromboplastin Time 23.5 Seconds (21.0-31.0); Prothrombin Time 11.8 Seconds (9.0-12.0)
[2018-11-27 23:33] LABS: Alanine Aminotransferase 13 U/L (12-78); Albumin Level 3.5 gm/dl (3.4-5.0); Aspartate Aminotransferase 14 U/L (15-37); BUN Creatinine Ratio 11.4 (10-20); Bilirubin Direct 0.2 mg/dl (0-0.2); Blood Urea Nitrogen 11 mg/dl (7-18); Calcium 8.4 mg/dl (8.5-10.1); Carbon Dioxide 31 mmol/L (21-32); Chloride 102 mmol/L (98-107); Est GFR (Non-African American) 52.6; Glucose 118 mg/dl (70-99); Magnesium 1.8 mg/dl (1.8-2.4); Potassium 3.6 mmol/L (3.5-5.1); Sodium 139 mmol/L (136-145)
[2018-11-27 23:44] LABS: Alkaline Phosphatase 102 U/L (45-117); Bilirubin,Total 0.5 mg/dl (0.2-1); NT Pro B Type Natriuretic Pept 3069 pg/ml (0-1800); Total Protein 7.6 gm/dl (6.4-8.2); Troponin I < 0.015 ng/ml (0-0.045)
[2018-11-27] MEDS ORDERED: FUROSEMIDE 40 MG/4 ML VIAL IV STA (23:49)
[2018-11-28] MEDS ORDERED: CALCIUM GLUCONATE 10% 1,000 MG in SODIUM CHLORIDE 0.9% 50 ML IV STA (00:02)
[2018-11-28] MEDS ORDERED: POTASSIUM CHLORIDE 20 MEQ TABCR PO STA (00:02)
[2018-11-28 00:45] LABS: Appearance Urine Clear (Clear); Bacteria Urine Automated Negative (Negative); Bilirubin Urine Negative (Negative); Blood Urine Trace (Negative); Color Urine Yellow; Glucose Urine UA Negative (Negative); Ketones Urine Negative (Negative); Leukocyte Esterase Urine Trace (Negative); Nitrite Urine Negative (Negative); Protein Urine Negative (Negative); Specific Gravity Urine 1.012 (1.000-1.030); Urobilinogen Urine Negative (Negative)
[2018-11-28] MEDS ORDERED: Heparin IV Standard *NO* Bolus STA (00:58)
--- NOTE | 2018-11-28 01:00 | History & Physical Report ---
Date of Service November 28, 2018 Assessment & Plan (1) Atrial fibrillation with RVR: New onset Fluid retention ? RSHF, normal chest x-ray in the setting of abnormal BNP hx CVA hypertension, stable hyperlipidemia, on statin Rx hypothyroidism, TSH slightly elevated DM 2, diet-controlled, well-controlled as of recent outpatient hemoglobin A1c of 5.13 Jun 2018 chronic anemia, hemoglobin at baseline PCU Titrate beta-ximena for rate control IV heparin for thromboembolic prophylaxis, px [id number] score at least 7 TTE, Cardiology consult RE new onset A. fib Diuretic Rx, strict I/Os, daily weights ISS BG goal 140-180, update hemoglobin A1c PT OT eval DVT prophylaxis. IV heparin Full code as per family. Patient's family requesting updates from providers. Ms. Otto Eng (grand [email or web address]), contact #[phone]. Mr. Debbie Eng ([id number]), contact #[phone]. History of Present Illness Chief Complaint: Dont know as per patient Shortness of breath, increase bilateral leg swelling as per family Primary Care Provider: Cathleen Infante, History obtained from patient, family, and records. Limited history obtained from patient secondary to marked hearing impairment. Medical history significant for CVA, hypertension, hyperlipidemia, hypothyroidism, DM 2, diet-controlled, chronic anemia (baseline hemoglobin 12- 13). Recent confinement July 2018 for strokelike symptoms. Recent ER visit 2 weeks ago for RLE cellulitis. Patient discharged on Keflex prescription. RLE swelling transiently improved as per [id number]. As per family, patient increasingly short of breath especially on exertion the last week, increased fluid retention, abdominal distention, bilateral leg swelling noted. Dry cough symptoms. At the ER, patient received IV metoprolol for rapid A. fib. Given Lasix for possible CHF. Patient denies chest pain, S OB symptoms. Does not know why she is at the emergency room. Medical History as above Surgical History : Hip surgery Family History : Heart disease, hypertension, stroke Personal/Social history : Non-smoker, no EtOH intake, lives with grandchildren Allergies Allergy/AdvReac Type Severity Reaction Status Date / Time aspirin Allergy Severe ANAPHYLAXIS, Verified 11/27/18 22:39 SWELLING Home Medications Home Medications Medication Instructions Recorded Confirmed Type amlodipine 10 mg PO QAM 03/05/18 11/27/18 History atorvastatin 10 mg PO QPM 03/05/18 11/27/18 History clopidogrel 75 mg PO QAM 03/05/18 11/27/18 History levothyroxine 25 mcg PO QAM 03/05/18 11/27/18 History metoprolol tartrate 12.5 mg PO BID 03/05/18 11/27/18 History pantoprazole 40 mg PO QAM 03/05/18 11/27/18 History albuterol sulfate [ProAir HFA] 2 puff INHALATION Q4H PRN 05/09/18 11/27/18 His tory fluticasone propionate 2 spry INTRANASAL DAILY PRN 05/09/18 11/27/18 History loratadine 10 mg PO DAILY PRN 05/09/18 11/27/18 History nystatin 1 applic TOPICAL BID PRN 05/09/18 11/27/18 History acetaminophen 650 mg PO Q6H PRN 11/14/18 11/27/18 History calcium carbonate-vitamin D3 1 tab PO TIDM 11/14/18 11/27/18 History [Oystercal-D] docusate sodium 100 mg PO BID 11/14/18 11/27/18 History furosemide [Lasix] 20 mg PO BID 11/14/18 11/27/18 History polyethylene glycol 3350 [Miralax] 17 g PO DAILY PRN 11/14/18 11/27/18 History triamcinolone acetonide 1 applic TOPICAL BID 11/14/18 11/27/18 History albuterol sulfate 2.5 mg INHALATION DIRECTED PRN 11/27/18 11/27/18 History Past Med/Surg History Medical History Cellulitis of right lower extremity (Acute) Acute cerebrovascular accident (Acute) Right upper lobe pneumonia (Acute) Acute CVA (cerebrovascular accident) Cerebrovascular disease (Chronic) Hypothyroidism (Chronic) CKD (chronic kidney disease) stage 3, GFR 30-59 ml/min (Chronic) Dyslipidemia (Chronic) HTN (hypertension) (Chronic) 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) Osteoporosis (Chronic) Osteoarthritis (Chronic) Anemia (Chronic) Renal lesion (Chronic) UTI (urinary tract infection) CVA (cerebral vascular accident) NACHO (generalized anxiety disorder) Surgical History History of hip surgery (Chronic) left Family History Other Cancer Diabetes Hypertension Kidney disease No significant family history Social History Preferred Language: Lithuanian 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 Ability: Effective Second Vp Hr Assessment Required: No Beliefs That Will Affect Care: None marital status: / Current Living Situation: Family Current Living Situation Comment: Lives with Daughter Otto and her family Other Information That Helps Us Care for You: No Feels Safe at Home: Yes Safety Concerns: Feels Safe At This Time Smoking Status: Never smoker Hx Alcohol Use: No Hx Substance Use: No Review of Systems Review of Systems: Could not be reliably obtained secondary to marked hearing impairment Physical Exam Physical Exam: GENERAL: Comfortable, hard of hearing, no respiratory distress SKIN: Normal color, warm HEENT: [employer] palpebral conjunctivae, no ptosis, dry buccal mucosa NECK : Supple, no tenderness CHEST : Decreased breath sounds, no tenderness HEART : Tachycardic, irregular, no obvious murmurs ABDOMEN: Some distention, nontender EXTREMITIES : Bilateral LE swelling, no LE tenderness, no other conspicuous deformities noted NEUROLOGIC : Coherent, nasolabial fold flattening left (chronic ), marked hearing impairment , no other gross focality Results & Data Vital Signs (Past 12 Hours) Vital Signs Temp Pulse Pulse Resp BP BP Pulse Ox 11/27/18 23:58 90 118/60 11/27/18 23:12 106 H 18 146/70 H 95 11/27/18 23:07 125 H 146/70 H 11/27/18 22:30 118 H 20 122/70 95 11/27/18 19:50 36.7 C 121 H 22 137/77 95 Laboratory Results Laboratory Results WBC 11.10 K/uL (4.8-10.8) H 11/27/18 22:45 RBC 5.05 M/uL (4.2-5.4) 11/27/18 22:45 Hgb 12.7 g/dL (12.0-16.0) 11/27/18 22:45 Hct 40.5 % (37-47) 11/27/18 22:45 MCV 80.2 fL (80-100) 11/27/18 22:45 MCH 25.1 pg (25-34) 11/27/18 22:45 MCHC 31.4 g/dL (32-36) L 11/27/18 22:45 RDW Std Deviation 45.7 fL (36.4-46.3) 11/27/18 22:45 RDW Coeff of Cain 15.6 % (11.5-14.5) H 11/27/18 22:45 Plt Count 278 K/uL (130-400) 11/27/18 22:45 MPV 10.4 fL (7.4-10.4) 11/27/18 22:45 Immature Gran % (Auto) 0.3 % 11/27/18 22:45 Neut % (Auto) 69.7 % 11/27/18 22:45 Lymph % (Auto) 17.8 % 11/27/18 22:45 [place] % (Auto) 9.0 % 11/27/18 22:45 Eos % (Auto) 2.7 % 11/27/18 22:45 Baso % (Auto) 0.5 % 11/27/18 22:45 Immature Gran # (Auto) 0.03 K/uL (0.00-0.02) H 11/27/18 22:45 Neut # (Auto) 7.74 K/uL (1.4-6.5) H 11/27/18 22:45 Lymph # (Auto) 1.98 K/uL (1.2-3.4) 11/27/18 22:45 [place] # (Auto) 1.00 K/uL (0.11-0.59) H 11/27/18 22:45 Eos # (Auto) 0.30 K/uL (0-0.5) 11/27/18 22:45 Baso # (Auto) 0.05 K/uL (0-0.2) 11/27/18 22:45 PT 11.8 Seconds (9.0-12.0) 11/27/18 22:45 INR 1.2 (0.9-1.1) H 11/27/18 22:45 APTT 23.5 Seconds (21.0-31.0) 11/27/18 22:45 PTT Ratio 0.9 11/27/18 22:45 Sodium 139 mmol/L (136-145) 10/21/19 22:45 Potassium 3.6 mmol/L (3.5-5.1) 11/27/18 22:45 Chloride 102 mmol/L (98-107) 11/27/18 22:45 Carbon Dioxide 31 mmol/L (21-32) 11/27/18 22:45 Anion Gap 6.0 (3-11) 11/27/18 22:45 BUN 11 mg/dl (7-18) 11/27/18 22:45 Creatinine 0.98 mg/dl (0.6-1.2) 11/27/18 22:45 Est Cr Clr Drug Dosing Not Reportable 11/27/18 22:45 Est GFR ( Amer) 61.0 11/27/18 22:45 Est GFR (Non-Af Amer) 52.6 11/27/18 22:45 BUN/Creatinine Ratio 11.4 (10-20) 11/27/18 22:45 Glucose 118 mg/dl (70-99) H 11/27/18 22:45 Calcium 8.4 mg/dl (8.5-10.1) L 11/27/18 22:45 Magnesium 1.8 mg/dl (1.8-2.4) 11/27/18 22:45 Total Bilirubin 0.5 mg/dl (0.2-1) 11/27/18 22:45 Direct Bilirubin 0.2 mg/dl (0-0.2) 11/27/18 22:45 AST 14 U/L (15-37) L 11/27/18 22:45 ALT 13 U/L (12-78) 11/27/18 22:45 Alkaline Phosphatase 102 U/L (45-117) 11/27/18 22:45 Troponin I < 0.015 ng/ml (0-0.045) 11/27/18 22:45 NT-Pro-B Natriuret Pep 3069 pg/ml (0-1800) H 11/27/18 22:45 Total Protein 7.6 gm/dl (6.4-8.2) 11/27/18 22:45 Albumin 3.5 gm/dl (3.4-5.0) 11/27/18 22:45 TSH 5.920 uIu/ml (0.300-4.500) H 11/27/18 22:45 Free T4 1.00 ng/dl (0.8-1.6) 11/27/18 22:45 Urine Color Yellow 11/28/18 00:35 Urine Appearance Clear (Clear) 11/28/18 00:35 Urine pH 7.0 (4.5-7.5) 11/28/18 00:35 Ur Specific [place] 1.012 (1.000-1.030) 11/28/18 00:35 Urine Protein Negative (Negative) 11/28/18 00:35 Urine Glucose (UA) Negative (Negative) 11/28/18 00:35 Urine Ketones Negative (Negative) 11/28/18 00:35 Urine Blood Trace (Negative) H 11/28/18 00:35 Urine Nitrite Negative (Negative) 11/28/18 00:35 Urine Bilirubin Negative (Negative) 11/28/18 00:35 Urine Urobilinogen Negative (Negative) 11/28/18 00:35 Ur Leukocyte Esterase Trace (Negative) H 11/28/18 00:35 Urine WBC (Auto) 5-10 /hpf (0-5) H 11/28/18 00:35 Urine RBC (Auto) 5-10 /hpf (0-4) H 11/28/18 00:35 U Hyaline Cast (Auto) 1-5 /lpf (0-5) 11/28/18 00:35 U Epithel Cells (Auto) 10-20 /lpf (0-5) H 11/28/18 00:35 Urine Bacteria (Auto) Negative (Negative) 11/28/18 00:[address] chest initial read: Enlarged pulmonary artery suggesting pulmonary artery hypertension. No evidence of pulmonary emboli. Moderate aortic athero sclerosis. Cardiomegaly. Scattered coronary artery calcifications. 4 mm nodule right lower lobe. 3 mm nodule right upper lobe unchanged. Mild groundglass opacities CTs right upper lobe nonspecific. Peribronchial wall thickening in the left lower lobe indicate bronchitis. EKG as per my interpretation : Rate 125, A. fib, normal axis, incomplete right bundle branch block, T wave abnormalities inferior leads, PVCs Abdominal ultrasound initial read: No ascites Ultrasound venous LE Dopplers initial read no DVT
[2018-11-28] MEDS ORDERED: OPTIRAY 320 125ml IV PRN (01:50)
[2018-11-28] MEDS ORDERED: NON-FORMULARY MEDICATION (Acetaminophen 650 MG) PO PRN (01:52)
[2018-11-28] MEDS ORDERED: POLYETHYLENE (MIRALAX) 17 GM PACK PO PRN (01:52)
[2018-11-28] MEDS ORDERED: NITROGLYCERIN SL 0.4 MG/TAB TAB SL PRN (01:52)
[2018-11-28] MEDS ORDERED: LORATADINE 10 MG TAB PO PRN (01:52)
[2018-11-28] MEDS ORDERED: ACETAMINOPHEN 325 MG TAB PO PRN (01:52)
[2018-11-28] MEDS ORDERED: PROMETHAZINE HCL 12.5 MG in SODIUM CHLORIDE 0.9% 50 ML IV PRN (01:52)
[2018-11-28] MEDS: HEPARIN SODIUM/DEXTROSE 25,000 UNITS/500 ML BAG IV SCH (02:57)
[2018-11-28] MEDS: PATIENT'S HEIGHT AND/OR WEIGHT NEEDED SCH ×4 (02:58→03:01)
[2018-11-28] MEDS ORDERED: XOPENEX/ATROVENT 1.25mg/0.5MG NEB COMBO NEB PRN (04:16)
[2018-11-28] MEDS ORDERED: IPRATROPIUM BROMIDE NEB SOLN 0.02% 2.5 ML VIAL INH PRN (04:30)
[2018-11-28] MEDS ORDERED: LEVALBUTEROL 1.25MG/0.5ML NEB INH PRN (04:30)
[2018-11-28] MEDS: METOPROLOL TARTRATE 50 MG TAB PO SCH ×2 (05:11→20:37)
[2018-11-28] MEDS: LEVOTHYROXINE SODIUM 25 MCG TABLET PO SCH (05:12)
--- NOTE | 2018-11-28 05:30 | Emergency Department Note ---
Entered by Toribio Malcolm acting as a scribe for Reji Mccartney MD ED Provider Note Name: Sumi Eng Age: 83, female Arrives Via: Walk in Informant: Patient, daughter CC: SOB HPI: The patient is an 83 year old female who presents to the emergency department with complaints of constant SOB beginning 2 days ago. The patient states that she was admitted last month for a UTI and confusion along with pneumonia. She notes that she was then treated for cellulitis 2 weeks later which improved. She reports that she started to become weak and fatigued two days ago. The patient states that she also started having difficulty ambulating, and she notes that she becomes very SOB with exertion. She reports that her SOB is better with rest, but she states that she still has mild SOB even when she is resting. Per daughter, the patient has had increased swelling of the hands and feet. She notes that the patient also has increased wheezing with breathing. The patient denies any CP, back pain, headache, abdominal pain, rashes, and change in her urine/bowels. Per daughter, the patient has not started any new medications, and she reports that the patient has not fallen or experienced any trauma. She states that the patient is on Plavix but is not on any other blood thinners. She notes that the patient does not have a history of Afib or an irreg ular heartbeat. ROS: See above HPI for pertinent positives & negatives. A total of 10 systems reviewed and were otherwise negative. Past Medical History: Cellulitis, pneumonia, hypothyroidism, CKD, HTN, anemia, CVA, NACHO, UTI Past Surgical History: Left hip surgery Family History: Cancer, diabetes, hypertension, kidney disease Social History: , lives with family, never smoker, uses alcohol Home Medications: Please see medication list Allergies: Aspirin Physical: Vitals: BP 146/70, Pulse 106, Resp 18, Temp 98.1 , O2 Sat 95 Exam: GENERAL: Patient is chronically unwell and tired appearing, in no acute distress. EYES: No scleral icterus, unremarkable pupils. ENT: Mucous membranes moist, no nasal congestion. NECK: No masses appreciated, no meningismus, trachea is midline. RESPIRATORY: No rhonchi. Mild wheezing throughout with diffuse crackles, decreased breath sounds at bases. CARDIOVASCULAR: Irregular tachycardic heart rate. No murmurs, rubs, gallops appreciated. GASTROINTESTINAL: Abdomen soft, non-tender, no peritonitis. Bowel sounds positive. No masses appreciated. BACK: No midline tenderness, no CVA tenderness EXTREMITIES: Normal motion all extremities, no cyanosis. 4+ edema to bilateral legs with pitting. Edema of bilateral hands. NEUROLOGIC: Alert and oriented, no acute motor or sensory deficits, no focal weakness, cranial nerves grossly intact. Slight slurred speech with mild left facial droop. SKIN: No rash, no jaundice, no diaphoresis. ED Course: Prior Medical Record, Triage/Nursing Notes, Medications, Allergies reviewed by Me 2300: The patient was evaluated in room A12. A complete history and physical exam was performed. 2330: I reevaluated and updated the patient. Her heart rate has improved slightly and is down to the 100s. The patient is without complaints. 2353: I rechecked the patient. Her heart rate is ranging from the 90s to the 110s. She feels stable and is comfortable with hospitalization. 2355: Janel Greco, was paged. 2356: Upon reevaluation, the patient is stable. I discussed the findings and the treatment plan with the patient. She expresses agreement and understanding. I spoke with Dr. Piedra of the [facility]. The patient will be evaluated for further management. Vital Signs: reviewed and remarkable for Tachycardia Labs: Reviewed and remarkable for BNP elevation Interventions: Lopressor 5mg IV x 2, Lasix 40mg IV, Saline Lock Imaging: CHEST X-RAY: X ray results are stated below per my interpretation: Chest: 1 view: Mild congestive findings no infiltrate, no effusion, normal cardiac border. EKG: Per My Interpretation: Indication SHOB: Afib RVR 123 bpm qtc 460 no ischemia noted. RBBB. When compared to ekg 11/14/18 afib is new Consults: 2356: I reviewed the patient's case with Janel Greco. He will evaluate the patient for further management. Blood pressure: Normal. No Referral necessary Disposition: Hospitalization Differentials: Sepsis, Infectious(UTI/Pneumonia/Meningitis/etc), Metabolic/Electrolyte Abnormality, Cardiac, Dehydration, Anemia, Hepatic, Endocrine, Toxicologic, Neurologic, amongst other pathologies entertained. Medical Decision Makin yr old female with worsening shortness of breath and edema. Exam consistent with congestive failure as well as afib rvr. No history of afib that I can note. She is on aspirin/plavix already. She was given 2 round of Lopressor which worked well to keep HR down. IV lasix given for congestive findings. No hypoxia but with persistent afib RVR will need to come in. Seems unlikely PE and given no SOB at rest and no active CP will hold on CT PE imaging at this time and defer to hospitalist along with anticoagulation plan. She does not appear to have infection at the current time. She did look improved with HR coming under control. Impression: Afib with RVR, acute CHF Critical Care: I have personally spent greater than 30 minutes of critical care time in the direct management of this patient. New onset Afib RVR requiring 2 rounds IV lopressor. This was a life/limb threatening event. This includes time spent evaluating patient, direct bedside care, chart review, placing orders, interpretation of diagnostic studies, discussion with consultants, patient, and family members, as well as other required patient management activities. This 30 minutes is in excess of all separately billable procedures. Rjei Mccartney MD The scribe's documentation has been prepared under my direction and personally reviewed by me in its entirety. I confirm that the note above accurately ref lects all work, treatment, procedures, and medical decision making performed by me. 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) Osteoporosis (Chronic) Osteoarthritis (Chronic) Anemia (Chronic) Renal lesion (Chronic) UTI (urinary tract infection) CVA (cerebral vascular accident) NACHO (generalized anxiety disorder) Surgical History History of hip surgery (Chronic) left Social History Preferred Language: Marshallese 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 Ability: Effective Educational Consultant Required: No Beliefs That Will Affect Care: None marital status: / Current Living Situation: Family Current Living Situation Comment: Lives with Daughter Otto and her family Other Information That Helps Us Care for You: No Feels Safe at Home: Yes Safety Concerns: Feels Safe At This Time Smoking Status: Never smoker Hx Alcohol Use: No Hx Substance Use: No Results & Data Vital Signs Vital Signs - 24 hr 11/27/18 19:50 11/27/18 22:30 11/27/18 23:07 Temperature 36.7 C Temperature Source Oral Sepsis Recent Fever Within 48 Hours No Sepsis Action Taken by Nursing No Action Required Pulse Rate 121 H 125 H Pulse Rate [Bilateral] 118 H Pulse Rhythm Regular Pulse Rhythm [Bilateral] Irregular Pulse Strength Normal Pulse Strength [Bilateral] Normal Respiratory Rate 22 20 Respiratory Effort / Characteristics Non-Labored Spontaneous Respiratory Depth Normal Normal Respiratory Pattern Regular Regular Blood Pressure 137/77 146/70 H Blood Pressure [Right Arm] 122/70 Blood Pressure Mean 97 Blood Pressure Mean [Right Arm] 87 Blood Pressure Position Sitting Blood Pressure Position [Right Arm] Sitting Pulse Oximetry 95 95 Oxygen Delivery Method Room Air Room Air 11/27/18 23:12 11/27/18 23:58 Temperature Temperature Source Sepsis Recent Fever Within 48 Hours Sepsis Action Taken by Nursing Pulse Rate 90 Pulse Rate [Bilateral] 106 H Pulse Rhythm Pulse Rhythm [Bilateral] Pulse Strength Pulse Strength [Bilateral] Respiratory Rate 18 Respiratory Effort / Characteristics Respiratory Depth Respiratory Pattern Blood Pressure 118/60 Blood Pressure [Right Arm] 146/70 H Blood Pressure Mean Blood Pressure Mean [Right Arm] 95 Blood Pressure Position Blood Pressure Position [Right Arm] Pulse Oximetry 95 Oxygen Delivery Method Room Air Home Medications Current Medication List: was personally reviewed by me Laboratory Data Attestation: I reviewed the patient's lab results. Result diagrams: 11/27/18 22:45 11/27/18 22:45 Lab Results 11/27/18 11/27/18 11/27/18 Range/Units 22:45 22:45 22:45 WBC 11.10 H (4.8-10.8) K/uL RBC 5.05 (4.2-5.4) M/uL Hgb 12.7 (12.0-16.0) g/dL Hct 40.5 (37-47) % MCV 80.2 (80-100) fL MCH 25.1 (25-34) pg MCHC 31.4 L (32-36) g/dL RDW Std Deviation 45.7 (36.4-46.3) fL RDW Coeff of Cain 15.6 H (11.5-14.5) % Plt Count 278 (130-400) K/uL MPV 10.4 (7.4-10.4) fL Immature Gran % (Auto) 0.3 % Neut % (Auto) 69.7 % Lymph % (Auto) 17.8 % Greer % (Auto) 9.0 % Eos % (Auto) 2.7 % Baso % (Auto) 0.5 % Immature Gran # (Auto) 0.03 H (0.00-0.02) K/uL Neut # (Auto) 7.74 H (1.4-6.5) K/uL Lymph # (Auto) 1.98 (1.2-3.4) K/uL Greer # (Auto) 1.00 H (0.11-0.59) K/uL Eos # (Auto) 0.30 (0-0.5) K/uL Baso # (Auto) 0.05 (0-0.2) K/uL PT 11.8 (9.0-12.0) Seconds INR 1.2 H (0.9-1.1) APTT 23.5 (21.0-31.0) Seconds PTT Ratio 0.9 Sodium 139 (136-145) mmol/L Potassium 3.6 (3.5-5.1) mmol/L Chloride 102 (98-107) mmol/L Carbon Dioxide 31 (21-32) mmol/L Anion Gap 6.0 (3-11) BUN 11 (7-18) mg/dl Creatinine 0.98 (0.6-1.2) mg/dl Est Cr Clr Drug Dosing Not Reportable Est GFR ( Amer) 61.0 Est GFR (Non-Af Amer) 52.6 BUN/Creatinine Ratio 11.4 (10-20) Glucose 118 H (70-99) mg/dl Calcium 8.4 L (8.5-10.1) mg/dl Magnesium 1.8 (1.8-2.4) mg/dl Total Bilirubin 0.5 (0.2-1) mg/dl Direct Bilirubin 0.2 (0-0.2) mg/dl AST 14 L (15-37) U/L ALT 13 (12-78) U/L Alkaline Phosphatase 102 (45-117) U/L Troponin I < 0.015 (0-0.045) ng/ml NT-Pro-B Natriuret Pep 3069 H (0-1800) pg/ml Total Protein 7.6 (6.4-8.2) gm/dl Albumin 3.5 (3.4-5.0) gm/dl TSH 5.920 H (0.300-4.500) uIu/ml Free T4 1.00 (0.8-1.6) ng/dl Total T3 (0.60-1.81) ng/ml Urine Color Urine Appearance (Clear) Urine pH (4.5-7.5) Ur Specific [place] (1.000-1.030) Urine Protein (Negative) Urine Glucose (UA) (Negative) Urine Ketones (Negative) Urine Blood (Negative) Urine Nitrite (Negative) Urine Bilirubin (Negative) Urine Urobilinogen (Negative) Ur Leukocyte Esterase (Negative) Urine WBC (Auto) (0-5) /hpf Urine RBC (Auto) (0-4) /hpf U Hyaline Cast (Auto) (0-5) /lpf U Epithel Cells (Auto) (0-5) /lpf Urine Bacteria (Auto) (Negative) 11/27/18 11/28/18 Range/Units 22:45 00:35 WBC (4.8-10.8) K/uL RBC (4.2-5.4) M/uL Hgb (12.0-16.0) g/dL Hct (37-47) % MCV (80-100) fL MCH (25-34) pg MCHC (32-36) g/dL RDW Std Deviation (36.4-46.3) fL RDW Coeff of Cain (11.5-14.5) % Plt Count (130-400) K/uL MPV (7.4-10.4) fL Immature Gran % (Auto) % Neut % (Auto) % Lymph % (Auto) % Greer % (Auto) % Eos % (Auto) % Baso % (Auto) % Immature Gran # (Auto) (0.00-0.02) K/uL Neut # (Auto) (1.4-6.5) K/uL Lymph # (Auto) (1.2-3.4) K/uL Greer # (Auto) (0.11-0.59) K/uL Eos # (Auto) (0-0.5) K/uL Baso # (Auto) (0-0.2) K/uL PT (9.0-12.0) Seconds INR (0.9-1.1) APTT (21.0-31.0) Seconds PTT Ratio Sodium (136-145) mmol/L Potassium (3.5-5.1) mmol/L Chloride (98-107) mmol/L Carbon Dioxide (21-32) mmol/L Anion Gap (3-11) BUN (7-18) mg/dl Creatinine (0.6-1.2) mg/dl Est Cr Clr Drug Dosing Est GFR ( Amer) Est GFR (Non-Af Amer) BUN/Creatinine Ratio (10-20) Glucose (70-99) mg/dl Calcium (8.5-10.1) mg/dl Magnesium (1.8-2.4) mg/dl Total Bilirubin (0.2-1) mg/dl Direct Bilirubin (0-0.2) mg/dl AST (15-37) U/L ALT (12-78) U/L Alkaline Phosphatase (45-117) U/L Troponin I (0-0.045) ng/ml NT-Pro-B Natriuret Pep (0-1800) pg/ml Total Protein (6.4-8.2) gm/dl Albumin (3.4-5.0) gm/dl TSH (0.300-4.500) uIu/ml Free T4 (0.8-1.6) ng/dl Total T3 1.20 (0.60-1.81) ng/ml Urine Color Yellow Urine Appearance Clear (Clear) Urine pH 7.0 (4.5-7.5) Ur Specific [place] 1.012 (1.000-1.030) Urine Protein Negative (Negative) Urine Glucose (UA) Negative (Negative) Urine Ketones Negative (Negative) Urine Blood Trace H (Negative) Urine Nitrite Negative (Negative) Urine Bilirubin Negative (Negative) Urine Urobilinogen Negative (Negative) Ur Leukocyte Esterase Trace H (Negative) Urine WBC (Auto) 5-10 H (0-5) /hpf Urine RBC (Auto) 5-10 H (0-4) /hpf U Hyaline Cast (Auto) 1-5 (0-5) /lpf U Epithel Cells (Auto) 10-20 H (0-5) /lpf Urine Bacteria (Auto) Negative (Negative) Administered Medications Heparin Sodium/Dextrose (Heparin Sodium/Dextrose) 25,000 units in 500 mls @ 22 mls/hr IV .[id number] [facility]; Protocol Stop: 12/28/18 00:59 Last Admin: 11/28/18 02:57 Dose: 1,100 units/hr, 22 mls/hr Documented by: [id number] Cosigned by: [id number] Ioversol (Optiray 320 125ml) 125 ml IV ONCE PRN PRN Reason: Interaction Checking Stop: 12/02/18 01:49 Last Admin: 11/28/18 01:50 Dose: 79 ml Documented by: [id number] Levothyroxine Sodium (Synthroid) 25 mcg PO DAILYBB [facility] Stop: 12/28/18 06:29 Last Admin: 11/28/18 05:12 Dose: 25 mcg Documented by: [id number] Metoprolol Tartrate (Lopressor) 50 mg PO BID [facility] Stop: 12/28/18 04:29 Last Admin: 11/28/18 05:11 Dose: 50 mg Documented by: [id number] Discontinued Medications Furosemide (Lasix) 40 mg IV NOW [facility] Stop: 11/27/18 23:50 Last Admin: 11/28/18 00:00 Dose: 40 mg Documented by: [id number] Heparin Sodium/Dextrose () 1 ea N/A NOW ST[facility]; Protocol Stop: 11/28/18 00:59 Last Admin: 11/28/18 02:57 Dose: 1 ea Documented by: [id number] Calcium Gluconate 1,000 mg/ (Sodium Chloride) 60 mls @ 240 mls/hr IV NOW STA Stop: 11/28/18 00:16 Last Infusion: 11/28/18 03:01 Dose: 0 mls/hr Documented by: [id number] Admin: 11/28/18 00:15 Dose: 240 mls/hr Documented by: [id number] Metoprolol Tartrate (Lopressor) 5 mg IV NOW STA Stop: 11/27/18 23:01 Last Admin: 11/27/18 23:07 Dose: 5 mg Documented by: [id number] Metoprolol Tartrate (Lopressor) 5 mg IV NOW STA Stop: 11/27/18 23:53 Last Admin: 11/27/18 23:58 Dose: 5 mg Documented by: [id number] Miscellaneous (Patient's Height And/Or Weight Needed) 1 ea N/A Q10M [facility] Stop: 11/28/18 01:51 Last Admin: 11/28/18 03:01 Dose: Not Given Documented by: [id number] Admin: 11/28/18 03:01 Dose: Not Given Documented by: [id number] Admin: 11/28/18 03:01 Dose: Not Given Documented by: [id number] Admin: 11/28/18 03:00 Dose: Not Given Documented by: [id number] Admin: 11/28/18 03:00 Dose: 1 ea Documented by: [id number] Admin: 11/28/18 02:58 Dose: 1 ea Documented by: [id number] Potassium Chloride (Klor-Con M20) 40 meq PO NOW STA Stop: 11/28/18 00:03 Last Admin: 11/28/18 00:16 Dose: 40 meq Documented by: [id number] Discharge Plan Visit Data *Final* Discharge Date/Time: 11/28/18 01:26 Chief Complaint: Swelling/Edema to Extremity Stated Complaint: SWOLLEN LEGS, SOB, WHEEZING, COUGH ED Provider: Reji Mccartney Discharge Problem: Atrial fibrillation with RVR, CHF (congestive heart failure) Patient Disposition: Admitted As Inpatient Discharge Instructions Interventions: ED Discharge Assessment Last Done: 11/28/18 01:26 Discharge Problem: CHF (congestive heart failure) Qualifiers: Heart failure type: unspecified Heart failure chronicity: acute Qualified Code(s): I50.9 - Heart failure, unspecified The scribe's documentation has been prepared under my direction and personally reviewed by me in its entirety. I confirm that the note above accurately reflects all work, treatment, procedures, and medical decision making performed by me.
[2018-11-28 05:57] LABS: Influenza A virus by PCR Neg for Influ A (Neg); Influenza B virus by PCR Neg for Influ B (Neg)
--- NOTE | 2018-11-28 06:32 | XRay Report ---
XR chest 1V portable CLINICAL HISTORY: Shortness of breath COMPARISON STUDY: Chest radiograph November 14, 2018. FINDINGS: Lung volumes are normal. Minimal left basilar opacity favors . There is no pn eumothorax or pleural effusion. Cardiac size is normal. Mediastinal contours are normal. There is no evidence for pulmonary edema. IMPRESSION: No acute cardiopulmonary findings. Electronically signed by: Erik Vera M.D. 11/28/2018 6:31 AM
--- NOTE | 2018-11-28 06:43 | CT Scan Report ---
CT angio chest PE protocol CT DOSE: 524.39 mGy.cm HISTORY: Pain. Edema. PE TECHNIQUE: Multiaxial CT images of the chest were performed following the intravenous administration of contrast to evaluate the pulmonary arteries. Maximal intensity projection images were also obtaine d. A dose lowering technique was utilized adhering to the principles of ALARA. COMPARISON STUDY: 10/29/2016 FINDINGS: There is a normal caliber thoracic aorta with no evidence for dissection. There is no evide nce for pulmonary embolus. No pleural effusions. No pneumothorax. The liver and spleen are unremarkab le. No mediastinal or hilar lymphadenopathy. The central airways are patent. The lungs demonstrate mi ld peribronchial and interstitial prominence. Several micronodules are present which have been described previously. IMPRESSION: 1. No evidence for pulmonary embolus. 2. Mild peribronchial prominence with potential early infiltrative change left base. The above report was generated using voice recognition software. It may contain grammatical, syntax or spelling errors. Electronically signed by: Jassi Conn M.D. 11/28/2018 6:42 AM
--- NOTE | 2018-11-28 07:08 | Ultrasound Report ---
US abdomen ltd ascites CLINICAL HISTORY: Abdominal distention. Evaluate for ascites. COMPARISON STUDY: CT of the abdomen and pelvis August 16, 2016. TECHNIQUE: Sonography of the abdomen and pelvis was performed to assess for ascites. FINDINGS: No ascites was identified within the abdomen or pelvis. IMPRESSION: No ascites within the abdomen or pelvis. Electronically signed by: Erik Vera M.D. 11/28/2018 7:07 AM
[2018-11-28 07:10] LABS: Basophils # (auto) 0.04 K/uL (0-0.2); Basophils % (auto) 0.4 %; Eosinophils # (auto) 0.44 K/uL (0-0.5); Eosinophils % (auto) 4.6 %; Hemoglobin 11.6 g/dL (12.0-16.0); Immature Granulocytes # (auto) 0.02 K/uL (0.00-0.02); Immature Granulocytes % (auto) 0.2 %; Lymphocytes # (auto) 1.78 K/uL (1.2-3.4); Lymphocytes % (auto) 18.7 %; Mean Corpuscular Hemoglobin 25.2 pg (25-34); Mean Corpuscular Hgb Conc 31.4 g/dL (32-36); Mean Corpuscular Volume 80.4 fL (80-100); Mean Platelet Volume 10.1 fL (7.4-10.4); Monocytes # (auto) 0.96 K/uL (0.11-0.59); Monocytes % (auto) 10.1 %; Neutrophils # (auto) 6.28 K/uL (1.4-6.5); Platelet Count 249 K/uL (130-400); RDW Coefficient of Variation 15.6 % (11.5-14.5); RDW Standard Deviation 45.7 fL (36.4-46.3); White Blood Count 9.52 K/uL (4.8-10.8)
--- NOTE | 2018-11-28 07:17 | Ultrasound Report ---
US venous doppler LE CLINICAL HISTORY: 83 years-old Female presenting with leg swelling. TECHNIQUE: Real-time grayscale and color and spectral Doppler ultrasound imaging of the veins of the bilateral lower extremities was performed. Compression and augmentation were also utilized. COMPARISON: 09/16/2017. FINDINGS: The examination was limited by patient tolerance. This is especially limited examination of the popli teal and calf veins. RIGHT: Common femoral vein: Patent. Greater saphenous vein (superficial): Patent. Deep femoral vein: Patent. Femoral vein: Patent. Popliteal vein: Patent. Calf veins: Grossly patent. LEFT: Common femoral vein: Patent. Greater saphenous vein (superficial): Patent. Deep femoral vein: Patent. Femoral vein: Patent. Popliteal vein: Patent. Calf veins: Grossly patent. Other: None. IMPRESSION: No evidence of deep venous thrombosis. Electronically signed by: Paul Rojo M.D. 11/28/2018 7:16 AM
[2018-11-28 07:19] LABS: INR 1.2 (0.9-1.1); Prothrombin Time 12.4 Seconds (9.0-12.0)
[2018-11-28 07:45] LABS: BUN Creatinine Ratio 11.6 (10-20); Blood Urea Nitrogen 11 mg/dl (7-18); Calcium 8.2 mg/dl (8.5-10.1); Carbon Dioxide 32 mmol/L (21-32); Chloride 102 mmol/L (98-107); Creatinine Clr Calc Pharmacy 42.2 ml/min; Est GFR (African American) 62.5; Est GFR (Non-African American) 53.9; Glucose 122 mg/dl (70-99); Potassium 3.5 mmol/L (3.5-5.1); Sodium 141 mmol/L (136-145)
[2018-11-28 07:49] LABS: Troponin I < 0.015 ng/ml (0-0.045)
[2018-11-28] MEDS ORDERED: FUROSEMIDE 40 MG in SYRINGE 0 ML IV ONE (08:00)
[2018-11-28] MEDS ORDERED: FUROSEMIDE 40 MG in SYRINGE 0 ML IV SCH (08:00)
[2018-11-28] MEDS: POTASSIUM CHLORIDE 10 MEQ TABCR PO SCH ×2 (08:21→16:57)
[2018-11-28] MEDS: DOCUSATE SODIUM 100 MG CAP PO SCH ×2 (08:21→20:36)
[2018-11-28] MEDS: CLOPIDOGREL BISULFATE 75 MG TAB PO SCH (08:22)
[2018-11-28] MEDS: PANTOprazole 40 MG TAB PO SCH (08:22)
[2018-11-28] MEDS ORDERED: METOPROLOL TARTRATE 25 MG TAB PO SCH (09:00)
[2018-11-28 09:35] LABS: Partial Thromboplastin Ratio 1.8
[2018-11-28] MEDS ORDERED: GLUCAGON FOR INJ 1 MG VIAL SQ PRN (09:45)
[2018-11-28] MEDS ORDERED: GLUCOSE 10 TABS/TUBE PO PRN (09:45)
[2018-11-28] MEDS ORDERED: CARBOHYDRATES FOR HYPOGLYCEMIA PO PRN (09:45)
[2018-11-28] MEDS ORDERED: DEXTROSE 50% 50 ML SYRINGE IV PRN (09:45)
[2018-11-28] MEDS ORDERED: GLUCOSE 40% GEL 15 GM TUBE PO PRN (09:45)
[2018-11-28 09:47] LABS: Partial Thromboplastin Time 47.9 Seconds (21.0-31.0)
[2018-11-28] MEDS: INSULIN ASPART 100 UNITS/ML 3 ML PEN SC SCH ×3 (12:29→20:36)
--- NOTE | 2018-11-28 12:52 | Cardiology Consultation ---
Date of Consultation November 28, 2018 Assessment & Plan (1) Atrial fibrillation with RVR: (2) CHF (congestive heart failure): The patient appears comfortable. As mentioned above she is not a good historian. She had a large diuresis with the IV Lasix given in the emergency department. The patient will require additional diuretics and I started her on 40 mg of Lasix IV twice daily. She has an echocardiogram pending. Currently her heart rates are controlled and I would continue with the metoprolol. The patient continues to be in atrial fibrillation but I do see some potential sinus beats on the telemetry. History of Present Illness Attending Physician: Juan Andrews DO History of Present Illness This is an elderly 83-year-old female who is hard of hearing and does not have her hearing aids. Most of the information is obtained from the chart and from nursing. The patient was admitted in July of this year with strokelike symptoms. She also had an ER visit approximately 2 weeks ago for a lower extremity cellulitis and was on Keflex. She was brought to the emergency department with shortness of breath and found to be in atrial fibrillation with RVR. Patient was also in congestive heart failure. The patient has no previous history of cardiac disease and has not been followed by cardiology as an outpatient. Allergies Allergy/AdvReac Type Severity Reaction Status Date / Time aspirin Allergy Severe ANAPHYLAXIS, Verified 11/27/18 22:39 SWELLING Home Medications Home Medications Medication Instructions Recorded Confirmed Type amlodipine 10 mg PO QAM 03/05/18 11/27/18 History atorvastatin 10 mg PO QPM 03/05/18 11/27/18 History clopidogrel 75 mg PO QAM 03/05/18 11/27/18 History levothyroxine 25 mcg PO QAM 03/05/18 11/27/18 History metoprolol tartrate 12.5 mg PO BID 03/05/18 11/27/18 History pantoprazole 40 mg PO QAM 03/05/18 11/27/18 History albuterol sulfate [ProAir HFA] 2 puff INHALATION Q4H PRN 05/09/18 11/27/18 History fluticasone propionate 2 spry INTRANASAL DAILY PRN 05/09/18 11/27/18 History loratadine 10 mg PO DAILY PRN 05/09/18 11/27/18 History nystatin 1 applic TOPICAL BID PRN 05/09/18 11/27/18 History acetaminophen 650 mg PO Q6H PRN 11/14/18 11/27/18 History calcium carbonate-vitamin D3 1 tab PO TIDM 11/14/18 11/27/18 History [Oystercal-D] docusate sodium 100 mg PO BID 11/14/18 11/27/18 History furosemide [Lasix] 20 mg PO BID 11/14/18 11/27/18 History polyethylene glycol 3350 [Miralax] 17 g PO DAILY PRN 11/14/18 11/27/18 History triamcinolone acetonide 1 applic TOPICAL BID 11/14/18 11/27/18 History albuterol sulfate 2.5 mg INHALATION DIRECTED PRN 11/27/18 11/27/18 History Patient History Medical History Cellulitis of right lower extremity (Acute) Acute cerebrovascular accident (Acute) Right upper lobe pneumonia (Acute) Acute CVA (cerebrovascular accident) Cerebrovascular disease (Chronic) Hypothyroidism (Chronic) CKD (chronic kidney disease) stage 3, GFR 30-59 ml/min (Chronic) Dyslipidemia (Chronic) HTN (hypertension) (Chronic) 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) Osteoporosis (Chronic) Osteoarthritis (Chronic) Anemia (Chronic) Renal lesion (Chronic) UTI (urinary tract infection) CVA (cerebral vascular accident) NACHO (generalized anxiety disorder) Surgical History History of hip surgery (Chronic) left Family History Other Cancer Diabetes Hypertension Kidney disease No significant family history Social History Preferred Language: Malaysian 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 Ability: Effective 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 Beliefs That Will Affect Care: None marital status: / Current Living Situation: Family Current Living Situation Comment: Lives with Daughter Otto and her family Other Information That Helps Us Care for You: No Feels Safe at Home: Yes Safety Concerns: Feels Safe At This Time Smoking Status: Never smoker Hx Alcohol Use: No Hx Substance Use: No Review of Systems Review of Systems: Unobtainable due to cognitive status Physical Exam Physical Exam: General: no acute distress and stated age Head: normocephalic, no masses, lesions, tenderness or abnormalities Eyes: conjunctiva are pink and non-injected, sclera clear Neck: supple, no adenopathy, no bruits, normal jugular venous pulse, no hepatojugular reflux Chest: normal shape and normal respiratory effort Lungs: Patient has rales. Cardiac Exam: - irregular rate & rhythm, no murmurs gallops or rubs - normal S1, normal S2 Pulses: 2(+) throughout Abdomen: abdomen soft, non-tender, no abnormal masses and no hepatosplenomegaly Musculoskeletal: no gait disturbance, no joint inflammation, no deforming arthritis Extremities: no edema and no cyanosis Neuro: grossly normal exam Results & Data Vital Signs (Past 12 Hours) Vital Signs Temp Pulse Pulse Resp BP BP BP 11/28/18 11:45 37.0 C 78 16 111/71 11/28/18 10:26 89 11/28/18 08:26 123/64 11/28/18 08:20 77 103/68 11/28/18 07:22 37.1 C 92 H 18 90/47 L 11/28/18 05:10 98 H 130/71 11/28/18 04:21 120 H 11/28/18 02:42 36.7 C 101 H 20 150/61 H 11/28/18 01:26 90 20 120/78 Pulse Ox 11/28/18 11:45 96 11/28/18 10:26 11/28/18 08:26 11/28/18 08:20 94 11/28/18 07:22 93 11/28/18 05:10 11/28/18 04:21 11/28/18 02:42 95 11/28/18 01:26 93 Laboratory Results Laboratory Results - last 24 hr 11/27/18 11/27/18 11/27/18 22:45 22:45 22:45 WBC 11.10 H RBC 5.05 Hgb 12.7 Hct 40.5 MCV 80.2 MCH 25.1 MCHC 31.4 L RDW Std Deviation 45.7 RDW Coeff of Cain 15.6 H Plt Count 278 MPV 10.4 Immature Gran % (Auto) 0.3 Neut % (Auto) 69.7 Lymph % (Auto) 17.8 [place] % (Auto) 9.0 Eos % (Auto) 2.7 Baso % (Auto) 0.5 Immature Gran # (Auto) 0.03 H Neut # (Auto) 7.74 H Lymph # (Auto) 1.98 [place] # (Auto) 1.00 H Eos # (Auto) 0.30 Baso # (Auto) 0.05 PT 11.8 INR 1.2 H APTT 23.5 PTT Ratio 0.9 Sodium 139 Potassium 3.6 Chloride 102 Carbon Dioxide 31 Anion Gap 6.0 BUN 11 Creatinine 0.98 Est Cr Clr Drug Dosing Not Reportable Est GFR ( Amer) 61.0 Est GFR (Non-Af Amer) 52.6 BUN/Creatinine Ratio 11.4 Glucose 118 H POC Glucose Calcium 8.4 L Magnesium 1.8 Total Bilirubin 0.5 Direct Bilirubin 0.2 AST 14 L ALT 13 Alkaline Phosphatase 102 Troponin I < 0.015 NT-Pro-B Natriuret Pep 3069 H Total Protein 7.6 Albumin 3.5 TSH 5.920 H Free T4 1.00 Total T3 Urine Color Urine Appearance Urine pH Ur Specific [place] Urine Protein Urine Glucose (UA) Urine Ketones Urine Blood Urine Nitrite Urine Bilirubin Urine Urobilinogen Ur Leukocyte Esterase Urine WBC (Auto) Urine RBC (Auto) U Hyaline Cast (Auto) U Epithel Cells (Auto) Urine Bacteria (Auto) Influenza Type A (PCR) Influenza Type B (PCR) 11/27/18 11/28/18 11/28/18 22:45 00:35 05:15 WBC RBC Hgb Hct MCV MCH MCHC RDW Std Deviation RDW Coeff of Cain Plt Count MPV Immature Gran % (Auto) Neut % (Auto) Lymph % (Auto) [place] % (Auto) Eos % (Auto) Baso % (Auto) Immature Gran # (Auto) Neut # (Auto) Lymph # (Auto) [place] # (Auto) Eos # (Auto) Baso # (Auto) PT INR APTT PTT Ratio Sodium Potassium Chloride Carbon Dioxide Anion Gap BUN Creatinine Est Cr Clr Drug Dosing Est GFR ( Amer) Est GFR (Non-Af Amer) BUN/Creatinine Ratio Glucose POC Glucose Calcium Magnesium Total Bilirubin Direct Bilirubin AST ALT Alkaline Phosphatase Troponin I NT-Pro-B Natriuret Pep Total Protein Albumin TSH Free T4 Total T3 1.20 Urine Color Yellow Urine Appearance Clear Urine pH 7.0 Ur Specific [place] 1.012 Urine Protein Negative Urine Glucose (UA) Negative Urine Ketones Negative Urine Blood Trace H Urine Nitrite Negative Urine Bilirubin Negative Urine Urobilinogen Negative Ur Leukocyte Esterase Trace H Urine WBC (Auto) 5-10 H Urine RBC (Auto) 5-10 H U Hyaline Cast (Auto) 1-5 U Epithel Cells (Auto) 10-20 H Urine Bacteria (Auto) Negative Influenza Type A (PCR) Neg for Influ A Influenza Type B (PCR) Neg for Influ B 11/28/18 11/28/18 11/28/18 06:52 06:52 06:52 WBC 9.52 RBC 4.60 Hgb 11.6 L Hct 37.0 MCV 80.4 MCH 25.2 MCHC 31.4 L RDW Std Deviation 45.7 RDW Coeff of Cain 15.6 H Plt Count 249 MPV 10.1 Immature Gran % (Auto) 0.2 Neut % (Auto) 66.0 Lymph % (Auto) 18.7 [place] % (Auto) 10.1 Eos % (Auto) 4.6 Baso % (Auto) 0.4 Immature Gran # (Auto) 0.02 Neut # (Auto) 6.28 Lymph # (Auto) 1.78 [place] # (Auto) 0.96 H Eos # (Auto) 0.44 Baso # (Auto) 0.04 PT 12.4 H INR 1.2 H APTT PTT Ratio Sodium 141 Potassium 3.5 Chloride 102 Carbon Dioxide 32 Anion Gap 7.0 BUN 11 Creatinine 0.96 Est Cr Clr Drug Dosing 42.2 Est GFR ( Amer) 62.5 Est GFR (Non-Af Amer) 53.9 BUN/Creatinine Ratio 11.6 Glucose 122 H POC Glucose Calcium 8.2 L Magnesium Total Bilirubin Direct Bilirubin AST ALT Alkaline Phosphatase Troponin I < 0.015 NT-Pro-B Natriuret Pep Total Protein Albumin TSH Free T4 Total T3 Urine Color Urine Appearance Urine pH Ur Specific [place] Urine Protein Urine Glucose (UA) Urine Ketones Urine Blood Urine Nitrite Urine Bilirubin Urine Urobilinogen Ur Leukocyte Esterase Urine WBC (Auto) Urine RBC (Auto) U Hyaline Cast (Auto) U Epithel Cells (Auto) Urine Bacteria (Auto) Influenza Type A (PCR) Influenza Type B (PCR) 11/28/18 11/28/18 09:06 11:09 WBC RBC Hgb Hct MCV MCH MCHC RDW Std Deviation RDW Coeff of Cain Plt Count MPV Immature Gran % (Auto) Neut % (Auto) Lymph % (Auto) [place] % (Auto) Eos % (Auto) Baso % (Auto) Immature Gran # (Auto) Neut # (Auto) Lymph # (Auto) [place] # (Auto) Eos # (Auto) Baso # (Auto) PT INR APTT 47.9 H* PTT Ratio 1.8 Sodium Potassium Chloride Carbon Dioxide Anion Gap BUN Creatinine Est Cr Clr Drug Dosing Est GFR ( Amer) Est GFR (Non-Af Amer) BUN/Creatinine Ratio Glucose POC Glucose 119 H Calcium Magnesium Total Bilirubin Direct Bilirubin AST ALT Alkaline Phosphatase Troponin I NT-Pro-B Natriuret Pep Total Protein Albumin TSH Free T4 Total T3 Urine Color Urine Appearance Urine pH Ur Specific [place] Urine Protein Urine Glucose (UA) Urine Ketones Urine Blood Urine Nitrite Urine Bilirubin Urine Urobilinogen Ur Leukocyte Esterase Urine WBC (Auto) Urine RBC (Auto) U Hyaline Cast (Auto) U Epithel Cells (Auto) Urine Bacteria (Auto) Influenza Type A (PCR) Influenza Type B (PCR) Medications Administered Current Inpatient Medications Acetaminophen (Tylenol) 650 mg PO Q4H PRN PRN Reason: Pain or Fever Stop: 12/28/18 01:51 Atorvastatin Calcium (Lipitor) 10 mg PO QPM [facility] Stop: 12/28/18 20:59 Clopidogrel Bisulfate (Plavix) 75 mg PO QAM [facility] Stop: 12/28/18 08:59 Last Admin: 11/28/18 08:22 Dose: 75 mg Documented by: Dextrose (Dextrose 50%) 25 - 50 ml IV UD PRN; Protocol PRN Reason: Hypoglycemia Protocol Stop: 12/28/18 09:44 Docusate Sodium (Colace) 100 mg PO BID [facility] Stop: 12/28/18 08:59 Last Admin: 11/28/18 08:21 Dose: 100 mg Documented by: Glucagon (Glucagen) 1 mg SQ UD PRN; Protocol PRN Reason: Hypoglycemia Protocol Stop: 12/28/18 09:44 Glucose (Glucose 40%) 15 - 30 gm PO UD PRN; Protocol PRN Reason: Hypoglycemia Protocol Stop: 12/28/18 09:44 Glucose (Dex4 Glucose) 4 - 8 tabs PO UD PRN; Protocol PRN Reason: Hypoglycemia Protocol Stop: 12/28/18 09:44 Heparin Sodium/Dextrose (Heparin Sodium/Dextrose) 25,000 units in 500 mls @ 22 mls/hr IV .[id number] [facility]; Protocol Stop: 12/28/18 00:59 Last Titration: 11/28/18 09:49 Dose: 1,100 units/hr, 22 mls/hr Documented by: Promethazine HCl 12.5 mg/ (Sodium Chloride) 50.5 mls @ 202 mls/hr IV Q6H PRN PRN Reason: Nausea And Vomiting Stop: 12/28/18 01:51 Furosemide 40 mg/ Syringe 4 mls @ 4 mls/min IV BID17 [facility] Stop: 12/28/18 16:59 Insulin Aspart (Novolog Flexpen) 0 units SC ACHS [facility] Stop: 12/28/18 11:29 Last Admin: 11/28/18 12:29 Dose: 1 units Documented by: Ioversol (Optiray 320 125ml) 125 ml IV ONCE PRN PRN Reason: Interaction Checking Stop: 12/02/18 01:49 Last Admin: 11/28/18 01:50 Dose: 79 ml Documented by: Ipratropium [place] (Atrovent 0.02% 0.5mg/2.5ml) 0.5 mg INH Q4H PRN PRN Reason: SOB/WHEEZING Stop: 12/28/18 04:29 Levalbuterol HCl (Xopenex 1.25mg/0.5ml Neb) 1.25 mg INH Q4H PRN PRN Reason: SOB/WHEEZING Stop: 12/28/18 04:29 Levothyroxine Sodium (Synthroid) 25 mcg PO DAILYBB [facility] Stop: 12/28/18 06:29 Last Admin: 11/28/18 05:12 Dose: 25 mcg Documented by: Loratadine (Claritin) 10 mg PO DAILY PRN PRN Reason: Allergy Symptoms Stop: 12/28/18 01:51 Metoprolol Tartrate (Lopressor) 50 mg PO BID [facility] Stop: 12/28/18 04:29 Last Admin: 11/28/18 05:11 Dose: 50 mg Documented by: Miscellaneous (Carbohydrates For Hypoglycemia) 15 - 30 gm PO UD PRN PRN Reason: Hypoglycemia Treatment Stop: 12/28/18 09:44 Nitroglycerin (Nitrostat) 0.4 mg SL UD PRN PRN Reason: Chest Pain Stop: 12/28/18 01:51 Pantoprazole Sodium (Protonix) 40 mg PO QAM [facility] Stop: 12/28/18 08:59 Last Admin: 11/28/18 08:22 Dose: 40 mg Documented by: Polyethylene Glycol (Miralax Powder Packet) 17 gm PO DAILY PRN PRN Reason: SEVERE CONSTIPATION Stop: 12/28/18 01:51 Potassium Chloride (Klor-Con M10) 20 meq PO BIDM [facility] Stop: 12/28/18 07:59 Last Admin: 11/28/18 08:21 Dose: 20 meq Documented by: (1) CHF (congestive heart failure) Heart failure chronicity: acute Heart failure type: unspecified Qualified Code(s): I50.9 - Heart failure, unspecified
[2018-11-28] MEDS: FUROSEMIDE 40 MG in SYRINGE 0 ML IV SCH (16:57)
[2018-11-28] MEDS: ATORVASTATIN 10 MG TAB PO SCH (20:36)
[2018-11-29] MEDS: HEPARIN SODIUM/DEXTROSE 25,000 UNITS/500 ML BAG IV SCH (01:15)
[2018-11-29] MEDS: LEVOTHYROXINE SODIUM 25 MCG TABLET PO SCH (06:04)
[2018-11-29 07:41] LABS: Partial Thromboplastin Ratio 2.2
[2018-11-29 07:43] LABS: Partial Thromboplastin Time 58.4 Seconds (21.0-31.0)
[2018-11-29] MEDS: INSULIN ASPART 100 UNITS/ML 3 ML PEN SC SCH ×4 (08:19→20:44)
[2018-11-29] MEDS: FUROSEMIDE 40 MG in SYRINGE 0 ML IV SCH (08:23)
[2018-11-29] MEDS: CLOPIDOGREL BISULFATE 75 MG TAB PO SCH (09:37)
[2018-11-29] MEDS: POTASSIUM CHLORIDE 10 MEQ TABCR PO SCH ×2 (09:38→16:46)
[2018-11-29] MEDS: METOPROLOL TARTRATE 50 MG TAB PO SCH ×2 (09:38→20:43)
[2018-11-29] MEDS: PANTOprazole 40 MG TAB PO SCH (09:38)
[2018-11-29] MEDS: DOCUSATE SODIUM 100 MG CAP PO SCH ×2 (09:38→20:43)
--- NOTE | 2018-11-29 11:37 | Cardiology Progress Note ---
Date of Service November 29, 2018 Assessment & Plan (1) Atrial fibrillation with RVR: (2) CHF (congestive heart failure): (3) Diastolic heart failure: The Patient converted to normal sinus rhythm yesterday afternoon. She has no new complaints. She appears to be comfortable. It is difficult to do an assessment of her mental status as she has hearing loss and her hearing aids may not be functioning appropriately. At this point I am going to decrease her diuretics and start Lasix 40 mg p.o. twice daily. I do not believe that she is a great candidate to be sent home on anticoagulation. At this time I would continue the Plavix, but I am going to stop the IV heparin and start subcu heparin until discharge. Echocardiogram indicates preserved left ventricular systolic function, with the poor quality of the imaging, diastolic function could not be assessed but we can assume that she has diastolic heart failure.. Subjective No new cardiac complaints. The patient does have her hearing aids today but the batteries are not working and is difficult to determine a mental status and orientation. Review of Systems Review of Systems: Unobtainable due to cognitive status Physical Exam Physical Exam: General: no acute distress and stated age Head: normocephalic, no masses, lesions, tenderness or abnormalities Eyes: conjunctiva are pink and non-injected, sclera clear Neck: supple, no adenopathy, no bruits, normal jugular venous pulse, no hepatojugular reflux Chest: normal shape and normal respiratory effort Lungs: clear to auscultation and percussion Cardiac Exam: - regular rate & rhythm, no murmurs gallops or rubs - normal S1, normal S2 Pulses: 2(+) throughout Abdomen: abdomen soft, non-tender, no abnormal masses and no hepatosplenomegaly Musculoskeletal: no gait disturbance, no joint inflammation, no deforming arthritis Extremities: no edema and no cyanosis Neuro: grossly normal exam Results & Data Vital Signs (Past 12 Hours) Vital Signs Temp Pulse Resp BP BP Pulse Ox 11/29/18 07:27 36.7 C 68 18 127/85 93 11/29/18 03:35 36.7 C 60 16 149/64 H 94 Laboratory Results Laboratory Results - last 24 hr 11/28/18 11/28/18 11/29/18 16:30 20:30 06:51 APTT 58.4 H* PTT Ratio 2.2 POC Glucose 170 H 103 H 11/29/18 07:29 APTT PTT Ratio POC Glucose 107 H Medications Administered Current Inpatient Medications Acetaminophen (Tylenol) 650 mg PO Q4H PRN PRN Reason: Pain or Fever Stop: 12/28/18 01:51 Atorvastatin Calcium (Lipitor) 10 mg PO QPM [facility] Stop: 12/28/18 20:59 Last Admin: 11/28/18 20:36 Dose: 10 mg Documented by: Clopidogrel Bisulfate (Plavix) 75 mg PO QAM [facility] Stop: 12/28/18 08:59 Last Admin: 11/29/18 09:37 Dose: 75 mg Documented by: Dextrose (Dextrose 50%) 25 - 50 ml IV UD PRN; Protocol PRN Reason: Hypoglycemia Protocol Stop: 12/28/18 09:44 Docusate Sodium (Colace) 100 mg PO BID [facility] Stop: 12/28/18 08:59 Last Admin: 11/29/18 09:38 Dose: 100 mg Documented by: Furosemide (Lasix) 40 mg PO BID17 [facility] Stop: 12/29/18 16:59 Glucagon (Glucagen) 1 mg SQ UD PRN; Protocol PRN Reason: Hypoglycemia Protocol Stop: 12/28/18 09:44 Glucose (Glucose 40%) 15 - 30 gm PO UD PRN; Protocol PRN Reason: Hypoglycemia Protocol Stop: 12/28/18 09:44 Glucose (Dex4 Glucose) 4 - 8 tabs PO UD PRN; Protocol PRN Reason: Hypoglycemia Protocol Stop: 12/28/18 09:44 Heparin Sodium (Porcine) (Heparin Sodium (Porcine)) 5,000 units SQ Q12 [facility] Stop: 12/29/18 20:59 Promethazine HCl 12.5 mg/ (Sodium Chloride) 50.5 mls @ 202 mls/hr IV Q6H PRN PRN Reason: Nausea And Vomiting Stop: 12/28/18 01:51 Insulin Aspart (Novolog Flexpen) 0 units SC ACHS [facility] Stop: 12/28/18 11:29 Last Admin: 11/29/18 08:19 Dose: Not Given Documented by: Ioversol (Optiray 320 125ml) 125 ml IV ONCE PRN PRN Reason: Interaction Checking Stop: 12/02/18 01:49 Last Admin: 11/28/18 01:50 Dose: 79 ml Documented by: Ipratropium [place] (Atrovent 0.02% 0.5mg/2.5ml) 0.5 mg INH Q4H PRN PRN Reason: SOB/WHEEZING Stop: 12/28/18 04:29 Levalbuterol HCl (Xopenex 1.25mg/0.5ml Neb) 1.25 mg INH Q4H PRN PRN Reason: SOB/WHEEZING Stop: 12/28/18 04:29 Levothyroxine Sodium (Synthroid) 25 mcg PO DAILYBB [facility] Stop: 12/28/18 06:29 Last Admin: 11/29/18 06:04 Dose: 25 mcg Documented by: Loratadine (Claritin) 10 mg PO DAILY PRN PRN Reason: Allergy Symptoms Stop: 12/28/18 01:51 Last Admin: 11/29/18 09:38 Dose: 10 mg Documented by: Metoprolol Tartrate (Lopressor) 50 mg PO BID [facility] Stop: 12/28/18 04:29 Last Admin: 11/29/18 09:38 Dose: 50 mg Documented by: Miscellaneous (Carbohydrates For Hypoglycemia) 15 - 30 gm PO UD PRN PRN Reason: Hypoglycemia Treatment Stop: 12/28/18 09:44 Nitroglycerin (Nitrostat) 0.4 mg SL UD PRN PRN Reason: Chest Pain Stop: 12/28/18 01:51 Pantoprazole Sodium (Protonix) 40 mg PO QAM [facility] Stop: 12/28/18 08:59 Last Admin: 11/29/18 09:38 Dose: 40 mg Documented by: Polyethylene Glycol (Miralax Powder Packet) 17 gm PO DAILY PRN PRN Reason: SEVERE CONSTIPATION Stop: 12/28/18 01:51 Potassium Chloride (Klor-Con M10) 20 meq PO BIDM [facility] Stop: 12/28/18 07:59 Last Admin: 11/29/18 09:38 Dose: 20 meq Documented by: (1) CHF (congestive heart failure) Heart failure chronicity: acute Heart failure type: unspecified Qualified Code(s): I50.9 - Heart failure, unspecified
--- NOTE | 2018-11-29 16:13 | Hospitalist Progress Note ---
Date of Service November 29, 2018 Assessment & Plan (1) Atrial fibrillation with RVR: Present on admission with SOB and was newly found in Afib Received IV metoprolol in the ER Converted to NSR since yesterday Cardiology on board Continue Metoprolol 50mg BID ECHO showed no wall motion abnormality with EF 60-65% Heparin drip discontinued by cardio since pt is not a great candidate to be sent home on anticoagulation Continue Plavix daily Continue Monitor closely Diastolic Heart failure CXR showed no acute cardiopulmonary findings. Received IV Lasix, then Lasix changed to oral Cardio on board Clinically improves SOB Mostly due to Afib vs CHF CT chest showed no evidence for pulmonary embolus. Doppler of LE showed NO DVT Hypothyroidism Continue Levothyroxine Hypertension Continue monitor BP Disposition Will discharge home tomorrow Ms. Otto Eng (grand [id number]), contact #[phone]. Mr. Debbie Eng ([id number]), contact #[phone]. Subjective Pt was seen and examined Sitting in in the chair with distress Pt said that she feels fine much better She denies any chest pain, palpitation, dizziness and SOB Physical Exam Physical Exam: General- No acute distress Head- atraumatic Eyes- PERRL, EOMI, ENT- oropharynx clear, decrease hearing function Neck- supple, no JVD Lungs- clear to auscultation Heart- regular rhythm; no murmur Abdomen- normal bowel sounds, soft, nontender Extremities- no calf tenderness, mild edema Neuro- alert, oriented, PERRL, EOMI; no facial palsy; no dysarthria Skin- warm & dry Results & Data Vital Signs (Past 12 Hours) Vital Signs Temp Pulse Resp BP BP Pulse Ox 11/29/18 15:21 36.6 C 64 19 146/60 H 90 11/29/18 12:10 36.8 C 59 L 18 114/63 97 11/29/18 07:27 36.7 C 68 18 127/85 93
[2018-11-29] MEDS: FUROSEMIDE 40 MG TAB PO SCH (16:47)
[2018-11-29] MEDS: HEPARIN SOD 5,000 UNIT/0.5 ML VIAL SQ SCH (20:43)
[2018-11-29] MEDS: ATORVASTATIN 10 MG TAB PO SCH (20:43)
[2018-11-30] MEDS: LEVOTHYROXINE SODIUM 25 MCG TABLET PO SCH (06:06)
[2018-11-30 06:46] LABS: Partial Thromboplastin Ratio 0.9; Partial Thromboplastin Time 24.3 Seconds (21.0-31.0)
[2018-11-30 07:06] LABS: BUN Creatinine Ratio 18.7 (10-20); Calcium 7.8 mg/dl (8.5-10.1); Creatinine Clr Calc Pharmacy 36.9 ml/min; Est GFR (African American) 53.6; Est GFR (Non-African American) 46.3; Potassium 3.6 mmol/L (3.5-5.1)
[2018-11-30] MEDS: DOCUSATE SODIUM 100 MG CAP PO SCH ×2 (07:45→20:35)
[2018-11-30] MEDS: POTASSIUM CHLORIDE 10 MEQ TABCR PO SCH ×2 (07:45→17:44)
[2018-11-30] MEDS: METOPROLOL TARTRATE 50 MG TAB PO SCH ×2 (07:46→20:35)
[2018-11-30] MEDS: HEPARIN SOD 5,000 UNIT/0.5 ML VIAL SQ SCH ×2 (07:46→20:33)
[2018-11-30] MEDS: PANTOprazole 40 MG TAB PO SCH (07:46)
[2018-11-30] MEDS: CLOPIDOGREL BISULFATE 75 MG TAB PO SCH (07:47)
[2018-11-30] MEDS: FUROSEMIDE 40 MG TAB PO SCH (07:47)
[2018-11-30] MEDS: INSULIN ASPART 100 UNITS/ML 3 ML PEN SC SCH ×4 (07:49→20:35)
--- NOTE | 2018-11-30 10:02 | Cardiology Progress Note ---
Date of Service November 30, 2018 Assessment & Plan (1) Atrial fibrillation with RVR: (2) CHF (congestive heart failure): (3) Diastolic heart failure: I backed down on her diuretics from IV to oral yesterday. Today she is wheezing which I believe is cardiac asthma. She still has some residual edema and at this point I think we should continue her hospital stay and give her additional IV diuretics. Otherwise she is doing well. Subjective The patient has no new cardiac complaints. On the telemetry she is maintaining sinus rhythm. Review of Systems Review of Systems: All systems reviewed & are unremarkable except as noted in HPI & below Nothing additional to add. Physical Exam Physical Exam: General: no acute distress and stated age Head: normocephalic, no masses, lesions, tenderness or abnormalities Eyes: conjunctiva are pink and non-injected, sclera clear Neck: supple, no adenopathy, no bruits, normal jugular venous pulse, no hepatojugular reflux Chest: normal shape and normal respiratory effort Lungs: Wheezing bilaterally. Cardiac Exam: - regular rate & rhythm, no murmurs gallops or rubs - normal S1, normal S2 Pulses: 2(+) throughout Abdomen: abdomen soft, non-tender, no abnormal masses and no hepatosplenomegaly Musculoskeletal: no gait disturbance, no joint inflammation, no deforming arthritis Extremities: Still with a residual edema. Neuro: grossly normal exam Results & Data Vital Signs (Past 12 Hours) Vital Signs Temp Pulse Pulse Resp BP BP Pulse Ox 11/30/18 08:45 64 11/30/18 07:27 36.8 C 60 18 127/63 95 11/30/18 07:13 36.5 C 63 18 125/49 L 93 11/30/18 03:39 36.6 C 55 L 20 146/71 H 94 11/29/18 23:05 36.7 C 62 18 128/61 95 (1) CHF (congestive heart failure) Heart failure chronicity: acute Heart failure type: unspecified Qualified Code(s): I50.9 - Heart failure, unspecified
--- NOTE | 2018-11-30 18:11 | Hospitalist Progress Note ---
Date of Service November 30, 2018 Assessment & Plan (1) Atrial fibrillation with RVR: Present on admission with SOB and was newly found in Afib Received IV metoprolol in the ER Converted to NSR since yesterday Cardiology on board Continue Metoprolol 50mg BID ECHO showed no wall motion abnormality with EF 60-65% Heparin drip discontinued by cardio since pt is not a great candidate to be sent home on anticoagulation Continue Plavix daily Continue Monitor closely Diastolic Heart failure CXR showed no acute cardiopulmonary findings. Received IV Lasix, then Lasix changed to oral yesterday Cardio on board Lasix changed to IV today Clinically improves Check BMP in am SOB Mostly due to Afib vs CHF CT chest showed no evidence for pulmonary embolus. Doppler of LE showed NO DVT Hypothyroidism Continue Levothyroxine Hypertension Continue monitor BP Disposition Will discharge home tomorrow Ms. Otto Eng (grand [id number]), contact #[phone]. Mr. Debbie Eng ([id number]), contact #[phone]. Subjective Pt was seen and examined Sitting in chair with no distress Pt said that she feels fine She is very anxious to go home Denies any chest pain, palpitation, dizziness and SOB Physical Exam Physical Exam: General- No acute distress Head- atraumatic Eyes- PERRL, EOMI, ENT- oropharynx clear, decrease hearing function Neck- supple, no JVD Lungs- mild wheezing Heart- regular rhythm; no murmur Abdomen- normal bowel sounds, soft, nontender Extremities- no calf tenderness, mild edema Neuro- alert, oriented, PERRL, EOMI; no facial palsy; no dysarthria Skin- warm & dry Results & Data Vital Signs (Past 12 Hours) Vital Signs Temp Pulse Pulse Resp BP BP Pulse Ox 11/30/18 16:00 65 11/30/18 15:06 36.8 C 68 19 124/67 95 11/30/18 11:37 36.6 C 59 L 18 121/71 97 11/30/18 08:45 64 11/30/18 07:27 36.8 C 60 18 127/63 95 11/30/18 07:13 36.5 C 63 18 125/49 L 93
[2018-11-30] MEDS: FUROSEMIDE 40 MG in SYRINGE 0 ML IV SCH (20:34)
[2018-11-30] MEDS: ATORVASTATIN 10 MG TAB PO SCH (20:35)
[2018-12-01] MEDS: LEVOTHYROXINE SODIUM 25 MCG TABLET PO SCH (05:48)
[2018-12-01 05:53] LABS: Basophils # (auto) 0.03 K/uL (0-0.2); Basophils % (auto) 0.3 %; Eosinophils # (auto) 0.33 K/uL (0-0.5); Eosinophils % (auto) 3.6 %; Hematocrit (blood only) 37.7 % (37-47); Hemoglobin 11.7 g/dL (12.0-16.0); Immature Granulocytes # (auto) 0.03 K/uL (0.00-0.02); Immature Granulocytes % (auto) 0.3 %; Lymphocytes # (auto) 1.87 K/uL (1.2-3.4); Lymphocytes % (auto) 20.2 %; Mean Corpuscular Hemoglobin 24.9 pg (25-34); Mean Corpuscular Volume 80.4 fL (80-100); Mean Platelet Volume 10.4 fL (7.4-10.4); Monocytes # (auto) 0.81 K/uL (0.11-0.59); Monocytes % (auto) 8.7 %; Neutrophils % (auto) 66.9 %; Platelet Count 258 K/uL (130-400); RDW Coefficient of Variation 15.8 % (11.5-14.5); RDW Standard Deviation 46.1 fL (36.4-46.3); Red Blood Count 4.69 M/uL (4.2-5.4); White Blood Count 9.27 K/uL (4.8-10.8)
[2018-12-01 06:03] LABS: Partial Thromboplastin Ratio 0.9; Partial Thromboplastin Time 25.6 Seconds (21.0-31.0)
[2018-12-01 06:32] LABS: BUN Creatinine Ratio 22.5 (10-20); Calcium 7.8 mg/dl (8.5-10.1); Creatinine Clr Calc Pharmacy 28.7 ml/min; Est GFR (African American) 43.7; Est GFR (Non-African American) 37.7; Potassium 3.7 mmol/L (3.5-5.1)
[2018-12-01] MEDS: INSULIN ASPART 100 UNITS/ML 3 ML PEN SC SCH ×4 (08:50→21:42)
[2018-12-01] MEDS: CLOPIDOGREL BISULFATE 75 MG TAB PO SCH (08:51)
[2018-12-01] MEDS: PANTOprazole 40 MG TAB PO SCH (08:51)
[2018-12-01] MEDS: HEPARIN SOD 5,000 UNIT/0.5 ML VIAL SQ SCH ×2 (08:51→21:42)
[2018-12-01] MEDS: FUROSEMIDE 40 MG in SYRINGE 0 ML IV SCH (08:51)
[2018-12-01] MEDS: DOCUSATE SODIUM 100 MG CAP PO SCH ×2 (08:51→21:41)
[2018-12-01] MEDS: POTASSIUM CHLORIDE 10 MEQ TABCR PO SCH ×2 (08:51→17:09)
[2018-12-01] MEDS: METOPROLOL TARTRATE 50 MG TAB PO SCH ×2 (08:51→21:41)
--- NOTE | 2018-12-01 10:47 | Cardiology Progress Note ---
Date of Service December 01, 2018 Assessment & Plan (1) Atrial fibrillation with RVR: (2) CHF (congestive heart failure): (3) Diastolic heart failure: The patient's weight is down again today. She is maintaining sinus rhythm. Lungs are clear today. I will switch her to p.o. Lasix today. Subjective The patient's status is unchanged. According to nursing she is doing well. Review of Systems Review of Systems: Unobtainable due to cognitive status Physical Exam Physical Exam: General: no acute distress and stated age Head: normocephalic, no masses, lesions, tenderness or abnormalities Eyes: conjunctiva are pink and non-injected, sclera clear Neck: supple, no adenopathy, no bruits, normal jugular venous pulse, no hepatojugular reflux Chest: normal shape and normal respiratory effort Lungs: clear to auscultation and percussion Cardiac Exam: - regular rate & rhythm, no murmurs gallops or rubs - normal S1, normal S2 Pulses: 2(+) throughout Abdomen: abdomen soft, non-tender, no abnormal masses and no hepatosplenomegaly Musculoskeletal: no gait disturbance, no joint inflammation, no deforming arthritis Extremities: no edema and no cyanosis Neuro: grossly normal exam Results & Data Vital Signs (Past 12 Hours) Vital Signs Temp Pulse Pulse Resp BP BP Pulse Ox 12/01/18 09:20 60 12/01/18 07:20 36.7 C 62 16 130/70 95 12/01/18 04:10 36.9 C 60 19 149/72 H 96 11/30/18 23:39 36.7 C 72 19 136/67 92 Laboratory Results Laboratory Results - last 24 hr 11/30/18 11/30/18 11/30/18 11:28 16:20 20:23 WBC RBC Hgb Hct MCV MCH MCHC RDW Std Deviation RDW Coeff of Cain Plt Count MPV Immature Gran % (Auto) Neut % (Auto) Lymph % (Auto) [place] % (Auto) Eos % (Auto) Baso % (Auto) Immature Gran # (Auto) Neut # (Auto) Lymph # (Auto) [place] # (Auto) Eos # (Auto) Baso # (Auto) APTT PTT Ratio Sodium Potassium Chloride Carbon Dioxide Anion Gap BUN Creatinine Est Cr Clr Drug Dosing Est GFR ( Amer) Est GFR (Non-Af Amer) BUN/Creatinine Ratio Glucose POC Glucose 112 H 101 H 119 H Calcium 12/01/18 12/01/18 12/01/18 05:23 05:23 05:23 WBC 9.27 RBC 4.69 Hgb 11.7 L Hct 37.7 MCV 80.4 MCH 24.9 L MCHC 31.0 L RDW Std Deviation 46.1 RDW Coeff of Cain 15.8 H Plt Count 258 MPV 10.4 Immature Gran % (Auto) 0.3 Neut % (Auto) 66.9 Lymph % (Auto) 20.2 [place] % (Auto) 8.7 Eos % (Auto) 3.6 Baso % (Auto) 0.3 Immature Gran # (Auto) 0.03 H Neut # (Auto) 6.20 Lymph # (Auto) 1.87 [place] # (Auto) 0.81 H Eos # (Auto) 0.33 Baso # (Auto) 0.03 APTT 25.6 PTT Ratio 0.9 Sodium 137 Potassium 3.7 Chloride 101 Carbon Dioxide 28 Anion Gap 8.0 BUN 29 H Creatinine 1.29 H Est Cr Clr Drug Dosing 28.7 Est GFR ( Amer) 43.7 Est GFR (Non-Af Amer) 37.7 BUN/Creatinine Ratio 22.5 H Glucose 96 POC Glucose Calcium 7.8 L 12/01/18 07:33 WBC RBC Hgb Hct MCV MCH MCHC RDW Std Deviation RDW Coeff of Cain Plt Count MPV Immature Gran % (Auto) Neut % (Auto) Lymph % (Auto) [place] % (Auto) Eos % (Auto) Baso % (Auto) Immature Gran # (Auto) Neut # (Auto) Lymph # (Auto) [place] # (Auto) Eos # (Auto) Baso # (Auto) APTT PTT Ratio Sodium Potassium Chloride Carbon Dioxide Anion Gap BUN Creatinine Est Cr Clr Drug Dosing Est GFR ( Amer) Est GFR (Non-Af Amer) BUN/Creatinine Ratio Glucose POC Glucose 161 H Calcium Medications Administered Current Inpatient Medications Acetaminophen (Tylenol) 650 mg PO Q4H PRN PRN Reason: Pain or Fever Stop: 12/28/18 01:51 Atorvastatin Calcium (Lipitor) 10 mg PO QPM [facility] Stop: 12/28/18 20:59 Last Admin: 11/30/18 20:35 Dose: 10 mg Documented by: Clopidogrel Bisulfate (Plavix) 75 mg PO QAM [facility] Stop: 12/28/18 08:59 Last Admin: 12/01/18 08:51 Dose: 75 mg Documented by: Dextrose (Dextrose 50%) 25 - 50 ml IV UD PRN; Protocol PRN Reason: Hypoglycemia Protocol Stop: 12/28/18 09:44 Docusate Sodium (Colace) 100 mg PO BID [facility] Stop: 12/28/18 08:59 Last Admin: 12/01/18 08:51 Dose: 100 mg Documented by: Furosemide (Lasix) 40 mg PO [id number] [facility] Stop: 12/31/18 16:59 Glucagon (Glucagen) 1 mg SQ UD PRN; Protocol PRN Reason: Hypoglycemia Protocol Stop: 12/28/18 09:44 Glucose (Glucose 40%) 15 - 30 gm PO UD PRN; Protocol PRN Reason: Hypoglycemia Protocol Stop: 12/28/18 09:44 Glucose (Dex4 Glucose) 4 - 8 tabs PO UD PRN; Protocol PRN Reason: Hypoglycemia Protocol Stop: 12/28/18 09:44 Heparin Sodium (Porcine) (Heparin Sodium (Porcine)) 5,000 units SQ Q12 [facility] Stop: 12/29/18 20:59 Last Admin: 12/01/18 08:51 Dose: 5,000 units Documented by: Promethazine HCl 12.5 mg/ (Sodium Chloride) 50.5 mls @ 202 mls/hr IV Q6H PRN PRN Reason: Nausea And Vomiting Stop: 12/28/18 01:51 Insulin Aspart (Novolog Flexpen) 0 units SC ACHS [facility] Stop: 12/28/18 11:29 Last Admin: 12/01/18 08:50 Dose: 3 units Documented by: Ioversol (Optiray 320 125ml) 125 ml IV ONCE PRN PRN Reason: Interaction Checking Stop: 12/02/18 01:49 Last Admin: 11/28/18 01:50 Dose: 79 ml Documented by: Ipratropium [place] (Atrovent 0.02% 0.5mg/2.5ml) 0.5 mg INH Q4H PRN PRN Reason: SOB/WHEEZING Stop: 12/28/18 04:29 Levalbuterol HCl (Xopenex 1.25mg/0.5ml Neb) 1.25 mg INH Q4H PRN PRN Reason: SOB/WHEEZING Stop: 12/28/18 04:29 Levothyroxine Sodium (Synthroid) 25 mcg PO DAILYBB [facility] Stop: 12/28/18 06:29 Last Admin: 12/01/18 05:48 Dose: 25 mcg Documented by: Loratadine (Claritin) 10 mg PO DAILY PRN PRN Reason: Allergy Symptoms Stop: 12/28/18 01:51 Last Admin: 11/29/18 09:38 Dose: 10 mg Documented by: Metoprolol Tartrate (Lopressor) 50 mg PO BID [facility] Stop: 12/28/18 04:29 Last Admin: 12/01/18 08:51 Dose: 50 mg Documented by: Miscellaneous (Carbohydrates For Hypoglycemia) 15 - 30 gm PO UD PRN PRN Reason: Hypoglycemia Treatment Stop: 12/28/18 09:44 Nitroglycerin (Nitrostat) 0.4 mg SL UD PRN PRN Reason: Chest Pain Stop: 12/28/18 01:51 Pantoprazole Sodium (Protonix) 40 mg PO QAM [facility] Stop: 12/28/18 08:59 Last Admin: 12/01/18 08:51 Dose: 40 mg Documented by: Polyethylene Glycol (Miralax Powder Packet) 17 gm PO DAILY PRN PRN Reason: SEVERE CONSTIPATION Stop: 12/28/18 01:51 Potassium Chloride (Klor-Con M10) 20 meq PO BIDM [facility] Stop: 12/28/18 07:59 Last Admin: 12/01/18 08:51 Dose: 20 meq Documented by: (1) CHF (congestive heart failure) Heart failure chronicity: acute Heart failure type: unspecified Qualified Code(s): I50.9 - Heart failure, unspecified
[2018-12-01] MEDS: FUROSEMIDE 40 MG TAB PO SCH (17:09)
--- NOTE | 2018-12-01 19:25 | Hospitalist Progress Note ---
Date of Service December 01, 2018 Assessment & Plan (1) Atrial fibrillation with RVR: Present on admission with SOB and was newly found in Afib Received IV metoprolol in the ER Converted to NSR since yesterday Cardiology on board Continue Metoprolol 50mg BID ECHO showed no wall motion abnormality with EF 60-65% Heparin drip discontinued by cardio since pt is not a great candidate to be sent home on anticoagulation Continue Plavix daily Continue Monitor closely Diastolic Heart failure CXR showed no acute cardiopulmonary findings. On IV lasix Cardio on board case discussed with cardiology and recommended to transition to oral lasix Clinically improves Check BMP in am SOB Mostly due to Afib vs CHF CT chest showed no evidence for pulmonary embolus. Doppler of LE showed NO DVT Hypothyroidism Continue Levothyroxine Hypertension Continue monitor BP Disposition Will discharge home tomorrow Ms. Otto Eng (grand [id number]), contact #[phone]. Mr. Debbie Eng ([id number]), contact #[phone]. Subjective Pt was seen and examined Sitting in chair with no distress Pt said that she feels much better Denies any chest pain, palpitation and SOB Physical Exam Physical Exam: General- No acute distress Head- atraumatic Eyes- PERRL, EOMI, ENT- oropharynx clear, decrease hearing function Neck- supple, no JVD Lungs- No wheezing Heart- regular rhythm; no murmur Abdomen- normal bowel sounds, soft, nontender Extremities- no calf tenderness, mild edema Neuro- alert, oriented, PERRL, EOMI; no facial palsy; no dysarthria Skin- warm & dry Results & Data Vital Signs (Past 12 Hours) Vital Signs Temp Pulse Pulse Resp BP Pulse Ox 12/01/18 15:24 62 12/01/18 14:58 36.5 C 59 L 20 128/52 L 96 12/01/18 12:13 36.6 C 58 L 16 156/73 H 94 12/01/18 09:20 60
[2018-12-01] MEDS: ATORVASTATIN 10 MG TAB PO SCH (21:41)
[2018-12-02] MEDS: LEVOTHYROXINE SODIUM 25 MCG TABLET PO SCH (05:44)
[2018-12-02 07:01] LABS: Basophils # (auto) 0.06 K/uL (0-0.2); Basophils % (auto) 0.6 %; Eosinophils # (auto) 0.41 K/uL (0-0.5); Eosinophils % (auto) 4.1 %; Hematocrit (blood only) 37.5 % (37-47); Hemoglobin 12.2 g/dL (12.0-16.0); Immature Granulocytes # (auto) 0.03 K/uL (0.00-0.02); Immature Granulocytes % (auto) 0.3 %; Lymphocytes % (auto) 19.2 %; Mean Corpuscular Hemoglobin 25.7 pg (25-34); Mean Corpuscular Hgb Conc 32.5 g/dL (32-36); Mean Corpuscular Volume 78.9 fL (80-100); Monocytes # (auto) 0.97 K/uL (0.11-0.59); Monocytes % (auto) 9.8 %; Neutrophils # (auto) 6.54 K/uL (1.4-6.5); Platelet Count 283 K/uL (130-400); RDW Coefficient of Variation 15.7 % (11.5-14.5); RDW Standard Deviation 45.2 fL (36.4-46.3); Red Blood Count 4.75 M/uL (4.2-5.4); White Blood Count 9.91 K/uL (4.8-10.8)
[2018-12-02 07:16] LABS: Partial Thromboplastin Time 26.2 Seconds (21.0-31.0)
[2018-12-02 07:29] LABS: BUN Creatinine Ratio 22.3 (10-20); Calcium 8.4 mg/dl (8.5-10.1); Creatinine Clr Calc Pharmacy 35.8 ml/min; Est GFR (African American) 51.9; Est GFR (Non-African American) 44.8; Potassium 3.7 mmol/L (3.5-5.1)
[2018-12-02] MEDS: POTASSIUM CHLORIDE 10 MEQ TABCR PO SCH ×2 (08:06→16:15)
[2018-12-02] MEDS: DOCUSATE SODIUM 100 MG CAP PO SCH (08:07)
[2018-12-02] MEDS: HEPARIN SOD 5,000 UNIT/0.5 ML VIAL SQ SCH (08:07)
[2018-12-02] MEDS: PANTOprazole 40 MG TAB PO SCH (08:08)
[2018-12-02] MEDS: FUROSEMIDE 40 MG TAB PO SCH ×2 (08:08→16:15)
[2018-12-02] MEDS: CLOPIDOGREL BISULFATE 75 MG TAB PO SCH (08:08)
[2018-12-02] MEDS: METOPROLOL TARTRATE 50 MG TAB PO SCH (08:09)
[2018-12-02] MEDS: INSULIN ASPART 100 UNITS/ML 3 ML PEN SC SCH ×2 (08:56→13:39)
--- NOTE | 2018-12-02 13:28 | Cardiology Progress Note ---
Date of Service December 02, 2018 Assessment & Plan (1) Atrial fibrillation with RVR: (2) CHF (congestive heart failure): (3) Diastolic heart failure: Clinically patient is stable. I believe she can be discharged from a cardiology standpoint however, I am uncertain as to whether she will be able to care for herself at home even with family close by. Subjective No new cardiac issues Review of Systems Review of Systems: Unobtainable due to cognitive status Physical Exam Physical Exam: General: no acute distress and stated age Head: normocephalic, no masses, lesions, tenderness or abnormalities Eyes: conjunctiva are pink and non-injected, sclera clear Neck: supple, no adenopathy, no bruits, normal jugular venous pulse, no hepatojugular reflux Chest: normal shape and normal respiratory effort Lungs: clear to auscultation and percussion Cardiac Exam: - regular rate & rhythm, no murmurs gallops or rubs - normal S1, normal S2 Pulses: 2(+) throughout Abdomen: abdomen soft, non-tender, no abnormal masses and no hepatosplenomegaly Musculoskeletal: no gait disturbance, no joint inflammation, no deforming arthritis Extremities: no edema and no cyanosis Neuro: grossly normal exam Results & Data Vital Signs (Past 12 Hours) Vital Signs Temp Pulse Pulse Pulse Resp BP Pulse Ox 12/02/18 11:33 36.5 C 59 L 18 128/71 95 12/02/18 07:30 58 L 12/02/18 07:00 36.4 C L 56 L 18 129/68 94 12/02/18 03:42 36.7 C 53 L 20 124/64 95 12/02/18 01:32 63 Laboratory Results Laboratory Results - last 24 hr 12/01/18 12/01/18 12/02/18 16:21 20:45 06:30 WBC RBC Hgb Hct MCV MCH MCHC RDW Std Deviation RDW Coeff of Cain Plt Count MPV Immature Gran % (Auto) Neut % (Auto) Lymph % (Auto) [place] % (Auto) Eos % (Auto) Baso % (Auto) Immature Gran # (Auto) Neut # (Auto) Lymph # (Auto) [place] # (Auto) Eos # (Auto) Baso # (Auto) APTT PTT Ratio Sodium 139 Potassium 3.7 Chloride 102 Carbon Dioxide 33 H Anion Gap 4.0 BUN 25 H Creatinine 1.12 Est Cr Clr Drug Dosing 35.8 Est GFR ( Amer) 51.9 Est GFR (Non-Af Amer) 44.8 BUN/Creatinine Ratio 22.3 H Glucose 99 POC Glucose 106 H 116 H Calcium 8.4 L 12/02/18 12/02/18 12/02/18 06:30 06:30 07:26 WBC 9.91 RBC 4.75 Hgb 12.2 Hct 37.5 MCV 78.9 L MCH 25.7 MCHC 32.5 RDW Std Deviation 45.2 RDW Coeff of Cain 15.7 H Plt Count 283 MPV 10.0 Immature Gran % (Auto) 0.3 Neut % (Auto) 66.0 Lymph % (Auto) 19.2 [place] % (Auto) 9.8 Eos % (Auto) 4.1 Baso % (Auto) 0.6 Immature Gran # (Auto) 0.03 H Neut # (Auto) 6.54 H Lymph # (Auto) 1.90 [place] # (Auto) 0.97 H Eos # (Auto) 0.41 Baso # (Auto) 0.06 APTT 26.2 PTT Ratio 1.0 Sodium Potassium Chloride Carbon Dioxide Anion Gap BUN Creatinine Est Cr Clr Drug Dosing Est GFR ( Amer) Est GFR (Non-Af Amer) BUN/Creatinine Ratio Glucose POC Glucose 97 Calcium 12/02/18 11:14 WBC RBC Hgb Hct MCV MCH MCHC RDW Std Deviation RDW Coeff of Cain Plt Count MPV Immature Gran % (Auto) Neut % (Auto) Lymph % (Auto) [place] % (Auto) Eos % (Auto) Baso % (Auto) Immature Gran # (Auto) Neut # (Auto) Lymph # (Auto) [place] # (Auto) Eos # (Auto) Baso # (Auto) APTT PTT Ratio Sodium Potassium Chloride Carbon Dioxide Anion Gap BUN Creatinine Est Cr Clr Drug Dosing Est GFR ( Amer) Est GFR (Non-Af Amer) BUN/Creatinine Ratio Glucose POC Glucose 94 Calcium Medications Administered Current Inpatient Medications Acetaminophen (Tylenol) 650 mg PO Q4H PRN PRN Reason: Pain or Fever Stop: 12/28/18 01:51 Atorvastatin Calcium (Lipitor) 10 mg PO QPM [facility] Stop: 12/28/18 20:59 Last Admin: 12/01/18 21:41 Dose: 10 mg Documented by: Clopidogrel Bisulfate (Plavix) 75 mg PO QAM [facility] Stop: 12/28/18 08:59 Last Admin: 12/02/18 08:08 Dose: 75 mg Documented by: Dextrose (Dextrose 50%) 25 - 50 ml IV UD PRN; Protocol PRN Reason: Hypoglycemia Protocol Stop: 12/28/18 09:44 Docusate Sodium (Colace) 100 mg PO BID [facility] Stop: 12/28/18 08:59 Last Admin: 12/02/18 08:07 Dose: 100 mg Documented by: Furosemide (Lasix) 40 mg PO BID17 [facility] Stop: 12/31/18 16:59 Last Admin: 12/02/18 08:08 Dose: 40 mg Documented by: Glucagon (Glucagen) 1 mg SQ UD PRN; Protocol PRN Reason: Hypoglycemia Protocol Stop: 12/28/18 09:44 Glucose (Glucose 40%) 15 - 30 gm PO UD PRN; Protocol PRN Reason: Hypoglycemia Protocol Stop: 12/28/18 09:44 Glucose (Dex4 Glucose) 4 - 8 tabs PO UD PRN; Protocol PRN Reason: Hypoglycemia Protocol Stop: 12/28/18 09:44 Heparin Sodium (Porcine) (Heparin Sodium (Porcine)) 5,000 units SQ Q12 [facility] Stop: 12/29/18 20:59 Last Admin: 12/02/18 08:07 Dose: 5,000 units Documented by: Promethazine HCl 12.5 mg/ (Sodium Chloride) 50.5 mls @ 202 mls/hr IV Q6H PRN PRN Reason: Nausea And Vomiting Stop: 12/28/18 01:51 Insulin Aspart (Novolog Flexpen) 0 units SC ACHS [facility] Stop: 12/28/18 11:29 Last Admin: 12/02/18 08:56 Dose: 1 units Documented by: Ipratropium [place] (Atrovent 0.02% 0.5mg/2.5ml) 0.5 mg INH Q4H PRN PRN Reason: SOB/WHEEZING Stop: 12/28/18 04:29 Levalbuterol HCl (Xopenex 1.25mg/0.5ml Neb) 1.25 mg INH Q4H PRN PRN Reason: SOB/WHEEZING Stop: 12/28/18 04:29 Levothyroxine Sodium (Synthroid) 25 mcg PO DAILYBB [facility] Stop: 12/28/18 06:29 Last Admin: 12/02/18 05:44 Dose: 25 mcg Documented by: Loratadine (Claritin) 10 mg PO DAILY PRN PRN Reason: Allergy Symptoms Stop: 12/28/18 01:51 Last Admin: 11/29/18 09:38 Dose: 10 mg Documented by: Metoprolol Tartrate (Lopressor) 50 mg PO BID [facility] Stop: 12/28/18 04:29 Last Admin: 12/02/18 08:09 Dose: Not Given Documented by: Miscellaneous (Carbohydrates For Hypoglycemia) 15 - 30 gm PO UD PRN PRN Reason: Hypoglycemia Treatment Stop: 12/28/18 09:44 Nitroglycerin (Nitrostat) 0.4 mg SL UD PRN PRN Reason: Chest Pain Stop: 12/28/18 01:51 Pantoprazole Sodium (Protonix) 40 mg PO QAM [facility] Stop: 12/28/18 08:59 Last Admin: 12/02/18 08:08 Dose: 40 mg Documented by: Polyethylene Glycol (Miralax Powder Packet) 17 gm PO DAILY PRN PRN Reason: SEVERE CONSTIPATION Stop: 12/28/18 01:51 Potassium Chloride (Klor-Con M10) 20 meq PO BIDM [facility] Stop: 12/28/18 07:59 Last Admin: 12/02/18 08:06 Dose: 20 meq Documented by: (1) CHF (congestive heart failure) Heart failure chronicity: acute Heart failure type: unspecified Qualified Code(s): I50.9 - Heart failure, unspecified
--- NOTE | 2018-12-02 14:28 | Hospitalist Progress Note ---
Date of Service December 02, 2018 Assessment & Plan (1) Atrial fibrillation with RVR: Present on admission with SOB and was newly found in Afib Received IV metoprolol in the ER Converted to NSR since yesterday Cardiology on board Continue Metoprolol 50mg BID ECHO showed no wall motion abnormality with EF 60-65% Heparin drip discontinued by cardio since pt is not a great candidate to be sent home on anticoagulation Continue Plavix daily Stable Diastolic Heart failure CXR showed no acute cardiopulmonary findings. Cardio on board case discussed with cardiology and recommended to transition to oral lasix Clinically improves Continue lasix 40mg BID OK from cardiology standpoint to discharge home SOB Mostly due to Afib vs CHF CT chest showed no evidence for pulmonary embolus. Doppler of LE showed NO DVT Clinically improves significantly Hypothyroidism Continue Levothyroxine Hypertension Continue monitor BP Disposition Will discharge home today Ms. Otto Eng (grand [id number]), contact #[phone]. Mr. Debbie Eng ([id number]), contact #[phone]. Subjective Pt was seen and examined Sitting on the chair with no distress She is very anxious and ready to go home She said that she feels fine Denies any chest pain, palpitation, dizziness and SOB Physical Exam Physical Exam: General- No acute distress Head- atraumatic Eyes- PERRL, EOMI, ENT- oropharynx clear, decrease hearing function Neck- supple, no JVD Lungs- No wheezing Heart- regular rhythm; no murmur Abdomen- normal bowel sounds, soft, nontender Extremities- no calf tenderness, mild edema Neuro- alert, oriented, PERRL, EOMI; no facial palsy; no dysarthria Skin- warm & dry Results & Data Vital Signs (Past 12 Hours) Vital Signs Temp Pulse Pulse Pulse Resp BP Pulse Ox 12/02/18 11:33 36.5 C 59 L 18 128/71 95 12/02/18 07:30 58 L 12/02/18 07:00 36.4 C L 56 L 18 129/68 94 12/02/18 03:42 36.7 C 53 L 20 124/64 95
--- NOTE | 2018-12-03 00:12 | Discharge Summary ---
Date of Service December 02, 2018 Admission HPI Per Admitting Provider History obtained from patient, family, and records. Limited history obtained from patient secondary to marked hearing impairment. Medical history significant for CVA, hypertension, hyperlipidemia, hypothyroidism, DM 2, diet-controlled, chronic anemia (baseline hemoglobin 12- 13). Recent confinement July 2018 for strokelike symptoms. Recent ER visit 2 weeks ago for RLE cellulitis. Patient discharged on Keflex pr escription. RLE swelling transiently improved as per [id number]. As per family, patient increasingly short of breath especially on exertion the last week, increased fluid retention, abdominal distention, bilateral leg swelling noted. Dry cough symptoms. At the ER, patient received IV metoprolol for rapid A. fib. Given Lasix for possible CHF. Patient denies chest pain, S OB symptoms. Does not know why she is at the emergency room. Medical History as above Surgical History : Hip surgery Family History : Heart disease, hypertension, stroke Personal/Social history : Non-smoker, no EtOH intake, lives with grandchildren Admission Exam Per Admitting Provider GENERAL: Comfortable, hard of hearing, no respiratory distress SKIN: Normal color, warm HEENT: [place] palpebral conjunctivae, no ptosis, dry buccal mucosa NECK : Supple, no tenderness CHEST : Decreased breath sounds, no tenderness HEART : Tachycardic, irregular, no obvious murmurs ABDOMEN: Some distention, nontender EXTREMITIES : Bilateral LE swelling, no LE tenderness, no other conspicuous def ormities noted NEUROLOGIC : Coherent, nasolabial fold flattening left (chronic ), marked hearing impairment , no other gross focality Principal Diagnosis Atrial Fibrillation with RVR Diastolic Heart failure Hypothyroidism Hypertension Discharge Exam General- No acute distress Head- atraumatic Eyes- PERRL, EOMI, ENT- oropharynx clear, decrease hearing function Neck- supple, no JVD Lungs- No wheezing Heart- regular rhythm; no murmur Abdomen- normal bowel sounds, soft, nontender Extremities- no calf tenderness, mild edema Neuro- alert, oriented, PERRL, EOMI; no facial palsy; no dysarthria Skin- warm & dry Discharge Data Allergies Allergy/AdvReac Type Severity Reaction Status Date / Time aspirin Allergy Severe ANAPHYLAXIS, Verified 11/27/18 22:39 SWELLING Consultations 11/27/18 23:52 ED Decision to Admit Stat 11/28/18 01:52 Consult Cardiology Routine Consult Case Management - Discharge Planning Routine Ordered Studies 11/28/18 00:56 CT angio chest PE protocol Urgent US abdomen ltd ascites Urgent 11/28/18 01:52 US venous doppler LE BI Routine US venous doppler LE BI CLINICAL HISTORY: 83 years-old Female presenting with leg swelling. TECHNIQUE: Real-time grayscale and color and spectral Doppler ultrasound imaging of the veins of the bilateral lower extremities was performed. Compression and augmentation were also utilized. COMPARISON: 09/16/2017. FINDINGS: The examination was limited by patient tolerance. This is especially limited examination of the popliteal and calf veins. RIGHT: Common femoral vein: Patent. Greater saphenous vein (superficial): Patent. Deep femoral vein: Patent. Femoral vein: Patent. Popliteal vein: Patent. Calf veins: Grossly patent. LEFT: Common femoral vein: Patent. Greater saphenous vein (superficial): Patent. Deep femoral vein: Patent. Femoral vein: Patent. Popliteal vein: Patent. Calf veins: Grossly patent. Other: None. IMPRESSION: No evidence of deep venous thrombosis. Electronically signed by: Paul Rojo M.D. 11/28/2018 7:16 AM Dictated: 11/28/1814 Transcribed: 11/28/18713 CT angio chest PE protocol CT DOSE: 524.39 mGy.cm HISTORY: Pain. Edema. PE TECHNIQUE: Multiaxial CT images of the chest were performed following the intravenous administration of contrast to evaluate the pulmonary arteries. Maximal intensity projection images were also obtained. A dose lowering technique was utilized adhering to the principles of ALARA. COMPARISON STUDY: 10/29/2016 FINDINGS: There is a normal caliber thoracic aorta with no evidence for dissection. There is no evidence for pulmonary embolus. No pleural effusions. No pneumothorax. The liver and spleen are unremarkable. No mediastinal or hilar lymphadenopathy. The central airways are patent. The lungs demonstrate mild peribronchial and interstitial prominence. Several micronodules are present which have been described previously. IMPRESSION: 1. No evidence for pulmonary embolus. 2. Mild peribronchial prominence with potential early infiltrative change left base. The above report was generated using voice recognition software. It may contain grammatical, syntax or spelling errors. Electronically signed by: Jassi Conn M.D. 11/28/2018 6:42 AM Dictated: 11/28/1840 Transcribed: 11/28/18639 US abdomen ltd ascites CLINICAL HISTORY: Abdominal distention. Evaluate for ascites. COMPARISON STUDY: CT of the abdomen and pelvis August 16, 2016. TECHNIQUE: Sonography of the abdomen and pelvis was performed to assess for ascites. FINDINGS: No ascites was identified within the abdomen or pelvis. IMPRESSION: No ascites within the abdomen or pelvis. Electronically signed by: Erik Vera M.D. 11/28/2018 7:07 AM Dictated: 11/28/18705 Transcribed: 11/28/18705 XR chest 1V portable CLINICAL HISTORY: Shortness of breath COMPARISON STUDY: Chest radiograph November 14, 2018. FINDINGS: Lung volumes are normal. Minimal left basilar opacity favors [id number]. There is no pneumothorax or pleural effusion. Cardiac size is normal. Mediastinal contours are normal. There is no evidence for pulmonary edema. IMPRESSION: No acute cardiopulmonary findings. Electronically signed by: Erik Vera M.D. 11/28/2018 6:31 AM Dictated: 11/28/18628 Transcribed: 11/28/18628 Hospital Course (1) Atrial fibrillation with RVR: Present on admission with SOB and was newly found in Afib Received IV metoprolol in the ER Converted to NSR since yesterday Cardiology on board Continue Metoprolol 50mg BID ECHO showed no wall motion abnormality with EF 60-65% Heparin drip discontinued by cardio since pt is not a great candidate to be sent home on anticoagulation Continue Plavix daily Stable Diastolic Heart failure CXR showed no acute cardiopulmonary findings. Cardio on board case discussed with cardiology and recommended to transition to oral lasix Clinically improves Continue lasix 40mg BID OK from cardiology standpoint to discharge home SOB Mostly due to Afib vs CHF CT chest showed no evidence for pulmonary embolus. Doppler of LE showed NO DVT Clinically improves significantly Hypothyroidism Continue Levothyroxine Hypertension Continue monitor BP Disposition Will discharge home today Ms. Otto Eng (grand [id number]-[id number]), contact #[phone]. Mr. Debbie Eng ([id number]), contact #[phone]. Total Time Total Time Spent Total Time Spent (In Minutes): 35 minutes Total Time Includes: Examination of the Patient, Discharge Planning, Medication Reconciliation, 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 With Other Providers and Other Discharge Plan Discharge Items Patient Disposition: Home - Self-Care Reason For Visit: AFIB Discharge Diagnosis: Atrial Fibrillation with RVR Diastolic Heart failure Hypothyroidism Hypertension Activity: Resume your previous activity Activity Comment: As tolerated Non-emergency contact: Primary Care Provider and Cruise Coordinator Call non-emergency contact if: you have any medication questions Follow-up/Referrals: Cathleen Infante DO [Primary Care Provider] - Diet: Heart Healthy Addtl Attending Provider Instructions: Follow up with your primary care provider Dr. Infante on 12/07 @ 12:45 PM Follow up with cardiology (Office will call you for the follow up appointment ) Fall precaution Follow a low salt diet Check BMP in 1 week to monitor electrolytes and kidney function Lasix increased to 40mg twice a day Pending Studies at Discharge: No Stand-Alone Forms: My [place], Smoking Cessation Medications and DC Order Prescriptions: New furosemide 40 mg Tablet 40 mg PO BID17 30 Days Qty: 60 RF: 0 potassium chloride 20 mEq tablet extended release 20 meq PO BID 30 Days Qty: 60 RF: 0 Continued loratadine 10 mg Tablet 10 mg PO DAILY PRN (Reason: Allergy Symptoms) RF: 0 fluticasone propionate 50 mcg/actuation spray,suspension 2 spry intranasal DAILY PRN (Reason: Allergy Symptoms) RF: 0 albuterol sulfate [ProAir HFA] 90 mcg/actuation Hfa Aerosol Inhaler 2 puff INHALATION Q4H PRN (Reason: Shortness Of Breath Or Wheezing) RF: 0 nystatin 100,000 unit/gram cream 1 applic topical BID PRN (Reason: Skin Irritation) RF: 0 triamcinolone acetonide 0.1 % Cream 1 applic TOPICAL BID RF: 0 calcium carbonate-vitamin D3 [Oystercal-D] 500 mg(1,250mg) -400 unit Tablet 1 tab PO TIDM RF: 0 polyethylene glycol 3350 [Miralax] 17 gram/dose Powder 17 g PO DAILY PRN (Reason: SEVERE CONSTIPATION) RF: 0 docusate sodium 100 mg Capsule 100 mg PO BID RF: 0 acetaminophen 650 mg Tablet Extended Release 650 mg PO Q6H PRN (Reason: pain/fever) RF: 0 atorvastatin 10 mg tablet 10 mg PO QPM RF: 0 clopidogrel 75 mg tablet 75 mg PO QAM RF: 0 levothyroxine 25 mcg tablet 25 mcg PO QAM RF: 0 amlodipine 10 mg tablet 10 mg PO QAM RF: 0 pantoprazole 40 mg tablet,delayed release (DR/EC) 40 mg PO QAM RF: 0 metoprolol tartrate 25 mg tablet 12.5 mg PO BID RF: 0 albuterol sulfate 2.5 mg /3 mL (0.083 %) Solution For Nebulization 2.5 mg INHALATION DIRECTED PRN (Reason: Shortness Of Breath Or Wheezing) RF: 0 Discontinued furosemide [Lasix] 20 mg Tablet 20 mg PO BID RF: 0 Discharge Orders: Discharge Order (Routine); Ordered 12/02/18 Ordered By: Viktoria Em Admission Data Admit Date/Time: 11/28/18 01:02 Attending Provider: Viktoria Em Admit Provider: Sonny Piedra Primary Care Provider: Cathleen Infante Other Providers: Sonny Piedra ; Silver Mondragon ; Juan Andrews Other Interventions: Discharge Summary Assessment (RN) Last Done: 12/02/18 16:18 DC Date/Time DO NOT enter until pt leaves facility: 12/02/18 17:19
--- NOTE | 2018-12-05 11:54 | Coding Query ---
CONGESTIVE HEART FAILURE To Promote full compliance with coding requirements relating to patient care, physician participation is requested in all cases of fish culturist uncertainty. Please assist us with the following questions. A diagnosis of Diastolic Congestive Heart Failure is documented in the patient's medical record and Discharge Summary. The ER documents "acute CHF" but there is no further documentation of the specificity in the rest of the record. To accurately code this diagnosis and to compare patient severity, we ask that you specify the type of heart failure by placing an X within the parenthesis (x). DIASTOLIC HEART FAILURE ( x) Acute ( ) Chronic ( ) Acute on Chronic ( ) Rheumatic ( ) Unknown Thank you Hortencia MILLARD
== END 2018-12-02 17:19 | disposition home or self-care (01) | DRG 308 ==
LOC: ED 19:47 → 2S 11-28 01:02 → SUATTDRO 11-28 01:02 → 2S 11-28 01:26

== ENCOUNTER 2018-12-26 16:36 | Observation (INO) ==
--- NOTE | 2018-12-26 18:38 | XRay Report ---
XR chest 1V portable HISTORY: Shortness of breath. COMPARISON: Chest 11/27/2018. FINDINGS: Linear density left lung base persist and favor scarring or atelectasis. The lungs are othe rwise clear. No pleural effusions. No pneumothorax. The heart is normal in size. IMPRESSION: No significant change compared to the prior study. No acute process. Electronically signed by: Luis Nelson M.D. 12/26/2018 6:37 PM
[2018-12-26 18:45] LABS: Appearance Urine Clear (Clear); Bilirubin Urine Negative (Negative); Blood Urine Negative (Negative); Color Urine Yellow; Glucose Urine UA Negative (Negative); Ketones Urine Negative (Negative); Leukocyte Esterase Urine Negative (Negative); Nitrite Urine Negative (Negative); Protein Urine Negative (Negative); Specific Gravity Urine 1.009 (1.000-1.030); Urobilinogen Urine Negative (Negative)
[2018-12-26 18:55] LABS: Basophils # (auto) 0.02 K/uL (0-0.2); Basophils % (auto) 0.2 %; Eosinophils # (auto) 0.27 K/uL (0-0.5); Eosinophils % (auto) 2.7 %; Hematocrit (blood only) 35.9 % (37-47); Hemoglobin 11.4 g/dL (12.0-16.0); Immature Granulocytes # (auto) 0.03 K/uL (0.00-0.02); Immature Granulocytes % (auto) 0.3 %; Lymphocytes # (auto) 1.59 K/uL (1.2-3.4); Lymphocytes % (auto) 15.9 %; Mean Corpuscular Hemoglobin 25.7 pg (25-34); Mean Corpuscular Hgb Conc 31.8 g/dL (32-36); Mean Platelet Volume 9.6 fL (7.4-10.4); Monocytes # (auto) 1.21 K/uL (0.11-0.59); Monocytes % (auto) 12.1 %; Neutrophils # (auto) 6.88 K/uL (1.4-6.5); Neutrophils % (auto) 68.8 %; Platelet Count 284 K/uL (130-400); RDW Coefficient of Variation 15.2 % (11.5-14.5); RDW Standard Deviation 45.2 fL (36.4-46.3); Red Blood Count 4.43 M/uL (4.2-5.4)
[2018-12-26 19:03] LABS: INR 1.2 (0.9-1.1)
[2018-12-26 19:28] LABS: BUN Creatinine Ratio 14.7 (10-20); Blood Urea Nitrogen 17 mg/dl (7-18); Calcium 8.4 mg/dl (8.5-10.1); Carbon Dioxide 33 mmol/L (21-32); Chloride 100 mmol/L (98-107); Est GFR (African American) 49.2; Est GFR (Non-African American) 42.5; Glucose 97 mg/dl (70-99); Magnesium 2.1 mg/dl (1.8-2.4); Potassium 3.8 mmol/L (3.5-5.1); Sodium 139 mmol/L (136-145)
[2018-12-26 19:33] LABS: NT Pro B Type Natriuretic Pept 286 pg/ml (0-1800); Troponin I < 0.015 ng/ml (0-0.045)
--- NOTE | 2018-12-26 20:52 | History & Physical Report ---
Date of Service December 26, 2018 Assessment & Plan (1) Diastolic heart failure: Recent hospitalization in November with A. fib with RVR and there was reverted to sinus rhythm with cardioversion Echo on 28 November did show grossly normal valvular structure and LV function with EF of 60 to 65% and noted to have diastolic dysfunction Likely has acute on chronic diastolic dysfunction presenting with increasing leg edema and weight gain of 8 pounds since 07 December We will continue with recently increasing dose of oral Lasix to 80 twice daily Oral spironolactone 25 mg daily Cardiology consult for further evaluation (2) Leg swelling: Diastolic heart failure presenting with bilateral leg edema and probable intestinal edema as well Lasix dose was increased to 80 mg twice daily on Tuesday and will continue (3) Paroxysmal A-fib: History of paroxysmal A. fib now is in sinus rhythm Attack of atrial fibrillation with RVR in November of this year Reverted to sinus rhythm and it is maintaining Metoprolol 12.5 mg twice daily will be continued and 50 mg twice daily doses will not be given at this time Will await further recommendation from tech brazer tester (4) Ambulatory dysfunction: Has been having problem with ambulation likely secondary to increasing leg swelling We will get PT and OT evaluation for possible rehab placement (5) Cerebrovascular disease: History of CVA and on Plavix No acute symptoms (6) Hypothyroidism: Continue replacement (7) CKD (chronic kidney disease) stage 3, GFR 30-59 ml/min: Has chronic kidney disease without any acute impairment (8) HTN (hypertension): We will continue current medications of amlodipine and metoprolol (9) Dyslipidemia: Continue statin DVT prophylaxis Subcu heparin CODE STATUS Full History of Present Illness Chief Complaint: Increasing leg swelling even with increasing dose of Lasix. Primary Care Provider: Cathleen Infante DO She is an 83-year-old female with significant past medical history of diastolic heart failure, history of CVA, hyperlipidemia, hypothyroidism chronic kidney disease stage III and type 2 diabetes has been complaining of increasing leg swelling with difficulty in ambulation, apparently she has had an attack of a trial fibrillation with RVR which is reverted to sinus rhythm by cardioversion in [facility]. At the time she was noted to have diastolic dysfunction as well. She has been complaining of increasing leg swelling with difficulty in ambulation since hospital discharge and her diuretics have been adjusted for that. Apparently she was seen in the cardiology clinic on Tuesday and received intravenous dose of Lasix of 40 mg and her doses of Lasix were increased to 80 twice daily. She woke up this morning with increasing leg swelling according to the granddaughter and she was advised to come to the emergency room for possible rehab placement from the hospital. She denies any symptoms except bilateral leg swelling. She does not have any chest pain, shortness of breath, any abdominal pain, nausea and/or vomiting, any problem with urine and her bowel habit. She denies any neurological symptoms as well. She has been ambulant at home with a walker. It has been difficult for the granddaughter to take care of her at home recently. Allergies Allergy/AdvReac Type Severity Reaction Status Date / Time aspirin Allergy Severe ANAPHYLAXIS, Verified 12/26/18 17:33 SWELLING Home Medications Home Medications Medication Instructions Recorded Confirmed Type amlodipine 10 mg PO QAM 03/05/18 12/26/18 History atorvastatin 10 mg PO QPM 03/05/18 12/26/18 History clopidogrel 75 mg PO QAM 03/05/18 12/26/18 History levothyroxine 25 mcg PO QAM 03/05/18 12/26/18 History metoprolol tartrate 12.5 mg PO BID 03/05/18 12/26/18 History pantoprazole 40 mg PO QAM 03/05/18 12/26/18 History albuterol sulfate [ProAir HFA] 2 puff INHALATION Q4H PRN 05/09/18 12/26/18 History fluticasone propionate 2 spry INTRANASAL DAILY PRN 05/09/18 12/26/18 History nystatin 1 applic TOPICAL BID PRN 05/09/18 12/26/18 History acetaminophen 650 mg PO Q6H PRN 11/14/18 12/26/18 History calcium carbonate-vitamin D3 1 tab PO TIDM 11/14/18 12/26/18 History [Oystercal-D] polyethylene glycol 3350 [Miralax] 17 g PO DAILY PRN 11/14/18 12/26/18 History triamcinolone acetonide 1 applic TOPICAL BID 11/14/18 12/26/18 History albuterol sulfate 2.5 mg INHALATION DIRECTED PRN 11/27/18 12/26/18 History furosemide 80 mg PO BID17 12/26/18 12/26/18 History potassium chloride 20 meq PO HS 12/26/18 12/26/18 History spironolactone 25 mg PO DAILY 12/26/18 12/26/18 History Past Med/Surg History Medical History Acute cerebrovascular accident (Acute) Acute CVA (cerebrovascular accident) 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) Anemia (Chronic) Cellulitis of right lower extremity (Inactive) Cerebrovascular disease (Chronic) CKD (chronic kidney disease) stage 3, GFR 30-59 ml/min (Chronic) CVA (cerebral vascular accident) Dyslipidemia (Chronic) NACHO (generalized anxiety disorder) HTN (hypertension) (Chronic) Hypothyroidism (Chronic) Osteoarthritis (Chronic) Osteoporosis (Chronic) Renal lesion (Chronic) Right upper lobe pneumonia (Acute) UTI (urinary tract infection) Surgical History History of hip surgery (Chronic) left Family History Other Cancer Diabetes Hypertension Kidney disease No significant family history Social History Preferred Language: Khmer 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 Ability: Effective Fur Blower Operator Required: No Beliefs That Will Affect Care: None marital status: / Current Living Situation: Family Current Living Situation Comment: Lives with Daughter Otto and her family Feels Safe at Home: Yes Smoking Status: Never smoker Hx Alcohol Use: No Hx Substance Use: No Review of Systems Review of Systems: All systems reviewed & are unremarkable except as noted in HPI & below Physical Exam Physical Exam: Lying in bed comfortably Constitutional: well developed and well nourished; no acute distress and not ill appearing Eyes: PERRL, conjunctivae normal, anicteric sclerae ENMT: external ear and nose normal, oropharynx normal Neck: trachea midline, no thyromegaly Respiratory: normal respiratory effort; no respiratory distress Auscultation: lungs clear to auscultation bilaterally Cardiovascular: Rate/Rhythm: regular rate and regular rhythm Heart Sounds: no murmur Gastrointestinal (Abdomen): Inspection/Auscultation: abdomen normal to inspection, + abdomen distended (Minimally distended) and normal bowel sounds Percussion/Palpation: abdomen soft; abdomen nontender Musculoskeletal: No acute arthritis in any joints Neurologic: moves all extremities; no focal motor deficits Alert, awake and oriented x3 Lymphatic: no cervical or axillary lymphadenopathy Results & Data Vital Signs (Past 12 Hours) Vital Signs Temp Pulse Pulse Resp BP BP Pulse Ox 12/26/18 20:12 64 18 129/54 L 97 12/26/18 18:57 63 20 128/50 L 96 12/26/18 18:02 63 15 132/52 L 97 12/26/18 16:43 36.7 C 76 20 139/81 99 Laboratory Results Short CBC 12/26/18 Range/Units 18:34 WBC 10.00 (4.8-10.8) K/uL Hgb 11.4 L (12.0-16.0) g/dL Hct 35.9 L (37-47) % Plt Count 284 (130-400) K/uL BMP 12/26/18 18:34 Sodium 139 Potassium 3.8 Chloride 100 Carbon Dioxide 33 H BUN 17 Creatinine 1.17 Glucose 97 Calcium 8.4 L Cardiac Enzymes 12/26/18 Range/Units 18:34 Troponin I < 0.015 (0-0.045) ng/ml Urine 12/26/18 Range/Units 18:30 Urine Color Yellow Urine Appearance Clear (Clear) Urine pH 7.0 (4.5-7.5) Ur Specific [place] 1.009 (1.000-1.030) Urine Protein Negative (Negative) Urine Glucose (UA) Negative (Negative)
[2018-12-26] MEDS ORDERED: NYSTATIN CR 15 GM TUBE EXT PRN (22:16)
[2018-12-26] MEDS ORDERED: POLYETHYLENE (MIRALAX) 17 GM PACK PO PRN (22:16)
[2018-12-26] MEDS ORDERED: FLUTICASONE PROPIONATE NA SPR 16 GM BTL PRN (22:16)
[2018-12-26] MEDS ORDERED: ALBUTEROL 0.083% NEBU SOLN 3 ML VIAL INH PRN (22:16)
[2018-12-26] MEDS ORDERED: ACETAMINOPHEN 325 MG TAB PO PRN (22:23)
[2018-12-26] MEDS ORDERED: ALBUTEROL HFA 8 GM INHALER INH PRN (22:25)
--- NOTE | 2018-12-26 22:44 | Emergency Department Note ---
Entered by Yazmin Boudreaux acting as a scribe for ED Provider Note Name: ROBERT HUGHES Age: 83 Arrives Via: Walk-In Informant: Patient CC: Swelling/edema in right leg HPI: 83F arrives for evaluation of worsening right leg swelling that started yesterday. The patient reports that the left leg is somewhat swollen as well but the right is worse. She states that she starting to have swelling in her abdomen. She notes that the right leg is somewhat itchy. Her daughter reports that the patient has been itching her leg all day. Her daughter states that the patient has had an associated loss of appetite. Her daughter notes that the patient was seen by Dr. Ching Cardiology office yesterday and had 40mg- Lasix pushed at that time. Her daughter states that the patient takes 80mg- diuretics daily. Her daughter notes that the patients swelling is worse today from yesterday despite the diuretics. Her daughter reports that the patient has some shortness of breath with exertion. The patient states that she slept well last night. She denies any recent fever or vomiting. Her daughter notes that the patient was here for CHF in the past and that her symptoms resemble past episodes of CHF exacerbation. ROS: See above HPI for pertinent positives & negatives. A total of 10 systems reviewed and were otherwise negative. Past Medical History:See Below Past Surgical History:See Below Family History:Non contributory Social History:Retired, lives at home. Home Medications:Albuterol, Amlodipine, Atorvastatin, Clopidogrel, Flut icasone, Furosemide, Levothyroxine, Loratadine, Metoprolol, Nystatin, Pantoprazole, Miralax, Potassium Chloride, Lasix Allergies:Aspiring Vitals:BP: 139/81; Pulse: 76; Resp: 20; Temp: 98.1F; O2 Sat: 98.1F RA Physical Exam: GENERAL: Patient is elderly and chronically unwell appearing and in no acute distress. EYES: No scleral icterus, unremarkable pupils. ENT: Mucous membranes moist, no nasal congestion. NECK: No masses appreciated, nomeningismus, trachea is midline. RESPIRATORY: Mildly dyspnic after returning from the bathroom. Crackles at the bilateral lower bases. No wheeze, no rhonchi. CARDIOVASCULAR: Regular rate and rhythm.No murmurs, rubs, gallops appreciated. GASTROINTESTINAL: Abdomen soft, non-tender, no peritonitis.Bowel sounds positive.No masses appreciated. BACK: No midline tenderness, no CVA tenderness. Mild pitting edema in lower back. EXTREMITIES: Normal motion all extremities, no cyanosis. Pitting edema in right lower leg up to the knee with mild erythema. NEUROLOGIC: Alert and oriented, no acute motor or sensory deficits, no focal weakness, cranial nerves grossly intact. SKIN: No rash, no jaundice, no diaphoresis. ED Course: Prior Medical Record, Triage/Nursing Notes, Medications, Allergies reviewed by Me Vital Signs: reviewed and remarkable for HTN Labs:Reviewed and remarkable for no significant abnormalities Interventions: [place] Imaging: Radiology results as stated below per my review and the radiologist's interpretation: XR chest 1V portable HISTORY: Shortness of breath. COMPARISON: Chest 11/27/2018. FINDINGS: Linear density left lung base persist and favor scarring or atelectasis. The lungs are otherwise clear. No pleural effusions. No pneumothorax. The heart is normal in size. IMPRESSION: No significant change compared to the prior study. No acute process. Electronically signed by: Luis Nelson M.D. 12/26/2018 6:37 PM EKG:Per My Interpretation: Indication Swelling: NSR 61 bpm qtc 477, Rbbb, no ectopy, no ischemia, similar to ekg 11/29/18 Reassessments/Times: 1724:The patient was evaluated in room C10. A complete history and physical examination was performed. 3: I discussed the patients case with Dr. Hanna, Cardiology, who notes that he did get a call about the patient earlier where he was informed that the patients family no longer feels they can care for the patient. He recommended hospitalization to get CHF under control and to find snf placement. 1952: Patient is agreeable to hospitalization and will consider rehabilitation. 1954: I discussed the patients case with Dr. Blanchard [facility], who will evaluate the patient for further management and care. Blood pressure:Elevated - Referred to PCP - [place] to be Situational. Disposition:Hospitalization Differentials:Etiologies such as DVT, musculoskeletal, infection, joint effusion, trauma, lymphedema, idiopathic, CHF, amongst other pathologies. Medical Decision Makin yr old with long history of chf, afib, amongst multiple medical issues arrives for evaluation of worsening swelling in legs (primarily RIght) as well as ambulatory issues. Work up is benign without acute findings. Is on 80 BID lasix with IV 40 yesterday though no in overt heart failure currently. She was reviewed with Cards who note that family is unable to care for patient. Reviewed with hospitalist who will bring in for optimizing management and likely send to rehab. Impression: Fluid overload Leg swelling Ambulatory dysfunction The scribe's documentation has been prepared under my direction and personally reviewed by me in its entirety. I confirm that the note above accurately reflects all work, treatment, procedures, and medical decision making performed by me. 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) Anemia (Chronic) Cellulitis of right lower extremity (Inactive) Cerebrovascular disease (Chronic) CKD (chronic kidney disease) stage 3, GFR 30-59 ml/min (Chronic) CVA (cerebral vascular accident) Dyslipidemia (Chronic) NACHO (generalized anxiety disorder) HTN (hypertension) (Chronic) Hypothyroidism (Chronic) Osteoarthritis (Chronic) Osteoporosis (Chronic) Renal lesion (Chronic) Right upper lobe pneumonia (Acute) UTI (urinary tract infection) Surgical History History of hip surgery (Chronic) left Family History Other Cancer Diabetes Hypertension Kidney disease No significant family history Social History Preferred Language: Latvian 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 Ability: Effective 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 Ability Comment: 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 Beliefs That Will Affect Care: None marital status: / Current Living Situation: Family Current Living Situation Comment: Lives with Daughter Otto and her family Feels Safe at Home: Yes Safety Concerns: Feels Safe At This Time Smoking Status: Never smoker Do You Dip or Chew Tobacco: No ; Second Hand Exposure: No ; Tobacco Cessation Education Requested by Patient: No Hx Alcohol Use: No Hx Substance Use: No Results & Data Vital Signs Vital Signs - 24 hr 12/26/18 16:43 12/26/18 18:02 12/26/18 18:57 Temperature 36.7 C Temperature Source Oral Pulse Rate 76 Pulse Rate [Left] 63 63 Pulse Rhythm [Left] Regular Respiratory Rate 20 15 20 Respiratory Effort / Characteristics Non-Labored Respiratory Depth Normal Respiratory Pattern Regular Blood Pressure 139/81 Blood Pressure [Left Arm] 132/52 L 128/50 L Blood Pressure Mean 100 Blood Pressure Mean [Left Arm] 78 76 Blood Pressure Position Sitting Pulse Oximetry 99 97 96 Oxygen Delivery Method Room Air Room Air Room Air Sepsis Recent Fever Within 48 Hours No Sepsis New/Unexplained Change in Mental Status No Sepsis Action Taken by Nursing No Action Required 12/26/18 20:12 Temperature Temperature Source Pulse Rate Pulse Rate [Left] 64 Pulse Rhythm [Left] Respiratory Rate 18 Respiratory Effort / Characteristics Respiratory Depth Respiratory Pattern Blood Pressure Blood Pressure [Left Arm] 129/54 L Blood Pressure Mean Blood Pressure Mean [Left Arm] 79 Blood Pressure Position Pulse Oximetry 97 Oxygen Delivery Method Room Air Sepsis Recent Fever Within 48 Hours Sepsis New/Unexplained Change in Mental Status Sepsis Action Taken by Half-Way Medications Current Medication List: was personally reviewed by me Laboratory Data Attestation: I reviewed the patient's lab results. Result diagrams: 12/26/18 18:34 12/26/18 18:34 Lab Results 12/26/18 12/26/18 12/26/18 Range/Units 18:30 18:34 18:34 WBC 10.00 (4.8-10.8) K/uL RBC 4.43 (4.2-5.4) M/uL Hgb 11.4 L (12.0-16.0) g/dL Hct 35.9 L (37-47) % MCV 81.0 (80-100) fL MCH 25.7 (25-34) pg MCHC 31.8 L (32-36) g/dL RDW Std Deviation 45.2 (36.4-46.3) fL RDW Coeff of Cain 15.2 H (11.5-14.5) % Plt Count 284 (130-400) K/uL MPV 9.6 (7.4-10.4) fL Immature Gran % (Auto) 0.3 % Neut % (Auto) 68.8 % Lymph % (Auto) 15.9 % [place] % (Auto) 12.1 % Eos % (Auto) 2.7 % Baso % (Auto) 0.2 % Immature Gran # (Auto) 0.03 H (0.00-0.02) K/uL Neut # (Auto) 6.88 H (1.4-6.5) K/uL Lymph # (Auto) 1.59 (1.2-3.4) K/uL [place] # (Auto) 1.21 H (0.11-0.59) K/uL Eos # (Auto) 0.27 (0-0.5) K/uL Baso # (Auto) 0.02 (0-0.2) K/uL PT 12.0 (9.0-12.0) Seconds INR 1.2 H (0.9-1.1) Sodium (136-145) mmol/L Potassium (3.5-5.1) mmol/L Chloride (98-107) mmol/L Carbon Dioxide (21-32) mmol/L Anion Gap (3-11) BUN (7-18) mg/dl Creatinine (0.6-1.2) mg/dl Est Cr Clr Drug Dosing Est GFR ( Amer) Est GFR (Non-Af Amer) BUN/Creatinine Ratio (10-20) Glucose (70-99) mg/dl Calcium (8.5-10.1) mg/dl Magnesium (1.8-2.4) mg/dl Troponin I (0-0.045) ng/ml NT-Pro-B Natriuret Pep (0-1800) pg/ml Urine Color Yellow Urine Appearance Clear (Clear) Urine pH 7.0 (4.5-7.5) Ur Specific [place] 1.009 (1.000-1.030) Urine Protein Negative (Negative) Urine Glucose (UA) Negative (Negative) Urine Ketones Negative (Negative) Urine Blood Negative (Negative) Urine Nitrite Negative (Negative) Urine Bilirubin Negative (Negative) Urine Urobilinogen Negative (Negative) Ur Leukocyte Esterase Negative (Negative) 12/26/18 Range/Units 18:34 WBC (4.8-10.8) K/uL RBC (4.2-5.4) M/uL Hgb (12.0-16.0) g/dL Hct (37-47) % MCV (80-100) fL MCH (25-34) pg MCHC (32-36) g/dL RDW Std Deviation (36.4-46.3) fL RDW Coeff of Cain (11.5-14.5) % Plt Count (130-400) K/uL MPV (7.4-10.4) fL Immature Gran % (Auto) % Neut % (Auto) % Lymph % (Auto) % [place] % (Auto) % Eos % (Auto) % Baso % (Auto) % Immature Gran # (Auto) (0.00-0.02) K/uL Neut # (Auto) (1.4-6.5) K/uL Lymph # (Auto) (1.2-3.4) K/uL [place] # (Auto) (0.11-0.59) K/uL Eos # (Auto) (0-0.5) K/uL Baso # (Auto) (0-0.2) K/uL PT (9.0-12.0) Seconds INR (0.9-1.1) Sodium 139 (136-145) mmol/L Potassium 3.8 (3.5-5.1) mmol/L Chloride 100 (98-107) mmol/L Carbon Dioxide 33 H (21-32) mmol/L Anion Gap 6.0 (3-11) BUN 17 (7-18) mg/dl Creatinine 1.17 (0.6-1.2) mg/dl Est Cr Clr Drug Dosing Not Reportable Est GFR ( Amer) 49.2 Est GFR (Non-Af Amer) 42.5 BUN/Creatinine Ratio 14.7 (10-20) Glucose 97 (70-99) mg/dl Calcium 8.4 L (8.5-10.1) mg/dl Magnesium 2.1 (1.8-2.4) mg/dl Troponin I < 0.015 (0-0.045) ng/ml NT-Pro-B Natriuret Pep 286 (0-1800) pg/ml Urine Color Urine Appearance (Clear) Urine pH (4.5-7.5) Ur Specific [place] (1.000-1.030) Urine Protein (Negative) Urine Glucose (UA) (Negative) Urine Ketones (Negative) Urine Blood (Negative) Urine Nitrite (Negative) Urine Bilirubin (Negative) Urine Urobilinogen (Negative) Ur Leukocyte Esterase (Negative) Blood Pressure Blood Pressure Findings: Low blood pressure Discharge Plan Visit Data *Final* Discharge Date/Time: 12/26/18 21:49 Chief Complaint: Swelling/Edema to Extremity Stated Complaint: SWELLING IN ABD - SENT BY JDE DEVELOPER ED Provider: Reji Mccartney Discharge Problem: Fluid overload, Leg swelling, Ambulatory dysfunction Patient Disposition: Admitted As Inpatient Discharge Instructions Interventions: ED Discharge Assessment Last Done: 12/26/18 21:49 Discharge Problem: Fluid overload Qualifiers: Hypervolemia type: unspecified Qualified Code(s): E87.70 - Fluid overload, unspecified The scribe's documentation has been prepared under my direction and personally reviewed by me in its entirety. I confirm that the note above accurately reflects all work, treatment, procedures, and medical decision making performed by me.
[2018-12-26] MEDS: TRIAMCINOLONE ACET 0.1% CR 15 GM TUBE TOP SCH (23:20)
[2018-12-26] MEDS: POTASSIUM CHLORIDE 20 MEQ TABCR PO SCH (23:20)
[2018-12-26] MEDS: ATORVASTATIN 10 MG TAB PO SCH (23:21)
[2018-12-26] MEDS: METOPROLOL TARTRATE 25 MG TAB PO SCH (23:21)
[2018-12-27] MEDS: LEVOTHYROXINE SODIUM 25 MCG TABLET PO SCH (06:01)
[2018-12-27 07:36] LABS: Basophils # (auto) 0.04 K/uL (0-0.2); Basophils % (auto) 0.5 %; Eosinophils # (auto) 0.32 K/uL (0-0.5); Eosinophils % (auto) 4.3 %; Hematocrit (blood only) 34.1 % (37-47); Hemoglobin 10.8 g/dL (12.0-16.0); Immature Granulocytes # (auto) 0.01 K/uL (0.00-0.02); Immature Granulocytes % (auto) 0.1 %; Lymphocytes # (auto) 1.39 K/uL (1.2-3.4); Lymphocytes % (auto) 18.7 %; Mean Corpuscular Hemoglobin 25.7 pg (25-34); Mean Corpuscular Hgb Conc 31.7 g/dL (32-36); Mean Corpuscular Volume 81.2 fL (80-100); Mean Platelet Volume 9.3 fL (7.4-10.4); Monocytes # (auto) 0.93 K/uL (0.11-0.59); Monocytes % (auto) 12.5 %; Neutrophils # (auto) 4.73 K/uL (1.4-6.5); Neutrophils % (auto) 63.9 %; Platelet Count 246 K/uL (130-400); RDW Coefficient of Variation 15.4 % (11.5-14.5); RDW Standard Deviation 45.2 fL (36.4-46.3); White Blood Count 7.42 K/uL (4.8-10.8)
[2018-12-27 08:02] LABS: Calcium 8.3 mg/dl (8.5-10.1); Creatinine Clr Calc Pharmacy 40.4 ml/min; Est GFR (African American) 59.5; Est GFR (Non-African American) 51.3; Magnesium 1.9 mg/dl (1.8-2.4); Potassium 3.7 mmol/L (3.5-5.1)
[2018-12-27] MEDS: AMLODIPINE BESYLATE 5 MG TAB PO SCH (08:21)
[2018-12-27] MEDS: CLOPIDOGREL BISULFATE 75 MG TAB PO SCH (08:21)
[2018-12-27] MEDS: METOPROLOL TARTRATE 25 MG TAB PO SCH ×2 (08:21→20:18)
[2018-12-27] MEDS: FUROSEMIDE 80 MG TAB PO SCH ×2 (08:21→17:17)
[2018-12-27] MEDS: SPIRONOLACTONE 25 MG TAB PO SCH (08:22)
[2018-12-27] MEDS: CALCIUM 600MG + VIT D 400 IU TAB PO SCH ×3 (08:22→17:18)
[2018-12-27] MEDS: PANTOprazole 40 MG TAB PO SCH (08:22)
[2018-12-27] MEDS: HEPARIN SOD 5,000 UNIT/0.5 ML VIAL SQ SCH ×2 (08:22→20:19)
--- NOTE | 2018-12-27 09:06 | Cardiology Consultation ---
Date of Consultation December 27, 2018 Assessment & Plan (1) Diastolic heart failure: (2) Ambulatory dysfunction: (3) Leg swelling: (4) Fluid overload: (5) Paroxysmal A-fib: (6) Adult failure to thrive: (7) Abscess or cellulitis of ankle: Best thing we could do for this elderly woman is to look into her home situation. She has had multiple hospital admissions this year with the most recent one being a few weeks ago. I am uncertain as to whether she can care for herself at home or whether she is compliant with her medications. I agree with adjusting her diuretics. Her lower extremity edema is not real severe and actually could be treated as an outpatient but the other factors as stated above will make that difficult. I would recommend a social service consult for consideration of placement if she or the family is agreeable. I would also have the office of the aging evaluate her home situation. Although the erythema around the right ankle could be due to dermatitis from edema and I agree with starting her on topical steroids but I think this could also be a cellulitis so I am going to start her on oral Keflex. She is currently in a sinus mechanism. I do not believe any additional cardiac testing is indicated at this time. History of Present Illness Attending Physician: West Rossi MD History of Present Illness This is an 83-year-old female who is well-known to our service due to multiple hospital admissions this year. She has diastolic heart failure with lower extremity edema and paroxysmal atrial fibrillation. She is very hard of hearing even with hearing aids. Her home situation is unknown and it is uncertain as to how compliant she is with her medications. She was seen in our clinic 2 days ago by Angelika Guillen who made some diuretic adjustments for lower extremity edema. The patient was also given a dose of IV Lasix. The patient does not have a scale or does not understand weigh herself daily. She was up several pounds from a previous visit at our clinic. She appears to be comfortable and when I asked her why she came to the hospital she points to her legs and states that she had swelling. No shortness of breath. No chest pain. No heart palpitations. Allergies Allergy/AdvReac Type Severity Reaction Status Date / Time aspirin Allergy Severe ANAPHYLAXIS, Verified 12/26/18 17:33 SWELLING Home Medications Home Medications Medication Instructions Recorded Confirmed Type amlodipine 10 mg PO QAM 03/05/18 12/26/18 History atorvastatin 10 mg PO QPM 03/05/18 12/26/18 History clopidogrel 75 mg PO QAM 03/05/18 12/26/18 History levothyroxine 25 mcg PO QAM 03/05/18 12/26/18 History metoprolol tartrate 12.5 mg PO BID 03/05/18 12/26/18 History pantoprazole 40 mg PO QAM 03/05/18 12/26/18 History albuterol sulfate [ProAir HFA] 2 puff INHALATION Q4H PRN 05/09/18 12/26/18 History fluticasone propionate 2 spry INTRANASAL DAILY PRN 05/09/18 12/26/18 History nystatin 1 applic TOPICAL BID PRN 05/09/18 12/26/18 History acetaminophen 650 mg PO Q6H PRN 11/14/18 12/26/18 History calcium carbonate-vitamin D3 1 tab PO TIDM 11/14/18 12/26/18 History [Oystercal-D] polyethylene glycol 3350 [Miralax] 17 g PO DAILY PRN 11/14/18 12/26/18 History triamcinolone acetonide 1 applic TOPICAL BID 11/14/18 12/26/18 History albuterol sulfate 2.5 mg INHALATION DIRECTED PRN 11/27/18 12/26/18 History furosemide 80 mg PO BID17 12/26/18 12/26/18 History potassium chloride 20 meq PO HS 12/26/18 12/26/18 History spironolactone 25 mg PO DAILY 12/26/18 12/26/18 History Patient History Medical History Acute cerebrovascular accident (Acute) Acute CVA (cerebrovascular accident) 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) Anemia (Chronic) Cellulitis of right lower extremity (Inactive) Cerebrovascular disease (Chronic) CKD (chronic kidney disease) stage 3, GFR 30-59 ml/min (Chronic) CVA (cerebral vascular accident) Dyslipidemia (Chronic) NACHO (generalized anxiety disorder) HTN (hypertension) (Chronic) Hypothyroidism (Chronic) Osteoarthritis (Chronic) Osteoporosis (Chronic) Renal lesion (Chronic) Right upper lobe pneumonia (Acute) UTI (urinary tract infection) Surgical History History of hip surgery (Chronic) left Family History Other Cancer Diabetes Hypertension Kidney disease No significant family history Social History Preferred Language: Wolof 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 Ability: Effective 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 Ability Comment: [facility] 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 Required: No Beliefs That Will Affect Care: None marital status: / Current Living Situation: Family Current Living Situation Comment: Lives with Daughter Otto and her family Feels Safe at Home: Yes Safety Concerns: Feels Safe At This Time Smoking Status: Never smoker Do You Dip or Chew Tobacco: No ; Second Hand Exposure: No ; Tobacco Cessation Education Requested by Patient: No Hx Alcohol Use: No Hx Substance Use: No Review of Systems Review of Systems: All systems reviewed & are unremarkable except as noted in HPI & below In addition to her lower extremity edema the right leg is erythematous and there is evidence of scratching. The hospitalist service is started her on topical steroids however I am concerned that this could be a cellulitis. Physical Exam Physical Exam: General: no acute distress and stated age Head: normocephalic, no masses, lesions, tenderness or abnormalities Eyes: conjunctiva are pink and non-injected, sclera clear Neck: supple, no adenopathy, no bruits, normal jugular venous pulse, no hepatojugular reflux Chest: normal shape and normal respiratory effort Lungs: clear to auscultation and percussion Cardiac Exam: - regular rate & rhythm, no murmurs gallops or rubs - normal S1, normal S2 Pulses: 2(+) throughout Abdomen: abdomen soft, non-tender, no abnormal masses and no hepatosplenomegaly Musculoskeletal: no gait disturbance, no joint inflammation, no deforming arthritis Extremities: Minimal edema around the ankles and feet. The right lower extremity is erythematous around the ankle Neuro: grossly normal exam Results & Data Vital Signs (Past 12 Hours) Vital Signs Temp Pulse Pulse Resp BP Pulse Ox 12/27/18 03:50 36.7 C 61 18 134/55 L 93 12/26/18 23:30 36.7 C 66 59 L 16 115/71 95 12/26/18 22:37 69 12/26/18 22:23 36.6 C 76 20 167/54 H 97 12/26/18 21:28 64 18 132/52 L 97 Laboratory Results Laboratory Results - last 24 hr 12/26/18 12/26/18 12/26/18 18:30 18:34 18:34 WBC 10.00 RBC 4.43 Hgb 11.4 L Hct 35.9 L MCV 81.0 MCH 25.7 MCHC 31.8 L RDW Std Deviation 45.2 RDW Coeff of Cain 15.2 H Plt Count 284 MPV 9.6 Immature Gran % (Auto) 0.3 Neut % (Auto) 68.8 Lymph % (Auto) 15.9 [place] % (Auto) 12.1 Eos % (Auto) 2.7 Baso % (Auto) 0.2 Immature Gran # (Auto) 0.03 H Neut # (Auto) 6.88 H Lymph # (Auto) 1.59 [place] # (Auto) 1.21 H Eos # (Auto) 0.27 Baso # (Auto) 0.02 PT 12.0 INR 1.2 H Sodium Potassium Chloride Carbon Dioxide Anion Gap BUN Creatinine Est Cr Clr Drug Dosing Est GFR ( Amer) Est GFR (Non-Af Amer) BUN/Creatinine Ratio Glucose Calcium Magnesium Troponin I NT-Pro-B Natriuret Pep Urine Color Yellow Urine Appearance Clear Urine pH 7.0 Ur Specific [place] 1.009 Urine Protein Negative Urine Glucose (UA) Negative Urine Ketones Negative Urine Blood Negative Urine Nitrite Negative Urine Bilirubin Negative Urine Urobilinogen Negative Ur Leukocyte Esterase Negative 12/26/18 12/27/18 12/27/18 18:34 07:12 07:12 WBC 7.42 RBC 4.20 Hgb 10.8 L Hct 34.1 L MCV 81.2 MCH 25.7 MCHC 31.7 L RDW Std Deviation 45.2 RDW Coeff of Cain 15.4 H Plt Count 246 MPV 9.3 Immature Gran % (Auto) 0.1 Neut % (Auto) 63.9 Lymph % (Auto) 18.7 [place] % (Auto) 12.5 Eos % (Auto) 4.3 Baso % (Auto) 0.5 Immature Gran # (Auto) 0.01 Neut # (Auto) 4.73 Lymph # (Auto) 1.39 [place] # (Auto) 0.93 H Eos # (Auto) 0.32 Baso # (Auto) 0.04 PT INR Sodium 139 139 Potassium 3.8 3.7 Chloride 100 102 Carbon Dioxide 33 H 32 Anion Gap 6.0 5.0 BUN 17 14 Creatinine 1.17 1.00 Est Cr Clr Drug Dosing Not Reportable 40.4 Est GFR ( Amer) 49.2 59.5 Est GFR (Non-Af Amer) 42.5 51.3 BUN/Creatinine Ratio 14.7 14.0 Glucose 97 96 Calcium 8.4 L 8.3 L Magnesium 2.1 1.9 Troponin I < 0.015 NT-Pro-B Natriuret Pep 286 Urine Color Urine Appearance Urine pH Ur Specific [place] Urine Protein Urine Glucose (UA) Urine Ketones Urine Blood Urine Nitrite Urine Bilirubin Urine Urobilinogen Ur Leukocyte Esterase Medications Administered Current Inpatient Medications Acetaminophen (Tylenol) 650 mg PO Q6H PRN PRN Reason: Pain Stop: 01/25/19 22:22 Albuterol (Ventolin 0.083% 2.5mg/3ml) 2.5 mg INH Q4H PRN PRN Reason: Shortness Of Breath Or Wheezing Stop: 01/25/19 22:15 Albuterol (Ventolin Hfa) 2 puffs INH Q4H PRN PRN Reason: SOB/WHEEZING Stop: 01/25/19 22:24 Amlodipine Besylate (Norvasc) 10 mg PO QAM [facility] Stop: 01/26/19 08:59 Last Admin: 12/27/18 08:21 Dose: 10 mg Documented by: Atorvastatin Calcium (Lipitor) 10 mg PO QPM [facility] Stop: 01/25/19 22:15 Last Admin: 12/26/18 23:21 Dose: 10 mg Documented by: Cephalexin HCl (Keflex) 250 mg PO QID [facility] Stop: 01/06/19 08:59 Clopidogrel Bisulfate (Plavix) 75 mg PO QAM [facility] Stop: 01/26/19 08:59 Last Admin: 12/27/18 08:21 Dose: 75 mg Documented by: Fluticasone Propionate (Flonase) 1 sprays NA DAILY PRN PRN Reason: Allergy Symptoms Stop: 01/25/19 22:15 Furosemide (Lasix) 80 mg PO BID17 [facility] Stop: 01/26/19 08:59 Last Admin: 12/27/18 08:21 Dose: 80 mg Documented by: Heparin Sodium (Porcine) (Heparin Sodium (Porcine)) 5,000 units SQ Q12 [facility] Stop: 01/26/19 08:59 Last Admin: 12/27/18 08:22 Dose: 5,000 units Documented by: Levothyroxine Sodium (Synthroid) 25 mcg PO DAILYBB [facility] Stop: 01/26/19 06:29 Last Admin: 12/27/18 06:01 Dose: 25 mcg Documented by: Metoprolol Tartrate (Lopressor) 12.5 mg PO BID [facility] Stop: 01/25/19 22:15 Last Admin: 12/27/18 08:21 Dose: 12.5 mg Documented by: Multivitamins/Minerals (Caltrate Plus) 1 tab PO TIDM [facility] Stop: 01/26/19 07:59 Last Admin: 12/27/18 08:22 Dose: 1 tab Documented by: Nystatin (Nystatin) 1 appln EXT BID PRN PRN Reason: Skin Irritation Stop: 01/25/19 22:15 Pantoprazole Sodium (Protonix) 40 mg PO QAM [facility] Stop: 01/26/19 08:59 Last Admin: 12/27/18 08:22 Dose: 40 mg Documented by: Polyethylene Glycol (Miralax Powder Packet) 17 gm PO DAILY PRN PRN Reason: SEVERE CONSTIPATION Stop: 01/25/19 22:15 Potassium Chloride (Klor-Con M20) 20 meq PO HS [facility] Stop: 01/25/19 22:15 Last Admin: 12/26/18 23:20 Dose: 20 meq Documented by: Spironolactone (Aldactone) 25 mg PO DAILY [facility] Stop: 01/26/19 08:59 Last Admin: 12/27/18 08:22 Dose: 25 mg Documented by: Triamcinolone Acetonide (Kenalog 0.1%) 1 appln TOP BID [facility] Stop: 01/25/19 22:15 Last Admin: 12/26/18 23:20 Dose: Not Given Documented by: (1) Fluid overload Hypervolemia type: unspecified Qualified Code(s): E87.70 - Fluid overload, unspecified
[2018-12-27] MEDS: TRIAMCINOLONE ACET 0.1% CR 15 GM TUBE TOP SCH ×2 (09:33→20:20)
[2018-12-27] MEDS: cephALEXin 250 MG CAP PO SCH ×4 (11:22→20:19)
--- NOTE | 2018-12-27 14:47 | Hospitalist Progress Note ---
Date of Service December 27, 2018 Assessment & Plan (1) Diastolic heart failure: Chronic Diastolic Heart Failure CXR:No significant change compared to the prior study. No acute process. Last ECHO: EF: 60-65% Recently increased lasix to 80mg BID [facility] Continue Lasix, Spironolactone Appreciate Cardiology Input Monitor Volume status (2) Leg swelling: Possible Right Leg Cellulitis No signs of sepsis Continue Keflex Day #1 (3) Paroxysmal A-fib: Recent hospitalization in November with A. fib with RVR and there was reverted to sinus rhythm with cardioversion Currently in Sinus Continue Metoprolol 12.5mg BID Not a candidate for long-term anticoagulation as per prior notes (4) Ambulatory dysfunction: PT/OT prior to discharge (5) Cerebrovascular disease: H/O CVA Continue Plavix, Statin (6) Hypothyroidism: Continue replacement (7) CKD (chronic kidney disease) stage 3, GFR 30-59 ml/min: Renal function at baseline Monitor (8) HTN (hypertension): BP Variable Continue amlodipine, metoprolol (9) Dyslipidemia: Continue statin DVT Px: Heparin SQ CODE STATUS Full Code Disposition PT/OT prior to discharge Subjective Patient is seen and examined at bedside Leg edema, erythema improved as per patient Eager to get discharged Denies any chest pain, SOB, dizziness, nausea, abd pain Started on PO Abx for possible Cellulitis Review of Systems Review of Systems: All systems reviewed & are unremarkable except as noted in HPI & below Physical Exam Physical Exam: Physical Exam: Vitals signs as noted above General Appearance:Moderately built and nourished, no apparent distress Head: normocephalic, Atraumatic Eyes: normal inspection, EOMI Neck: supple, Trachea midline Respiratory/Chest: Normal breath sounds, CTA Cardiovascular: S1, S2, No murmur Abdomen/GI:Soft, Non tender, Bowel sounds present Extremities/Musculoskelatal:normal inspection, RLE > LLE edema, R ankle erythema Neurologic/Psych:AAOX3, grossly no focal neurological deficits Skin: normal color, warm Results & Data Vital Signs (Past 12 Hours) Vital Signs Temp Pulse Pulse Resp BP Pulse Ox 12/27/18 12:00 61 18 129/72 94 12/27/18 09:00 57 L 12/27/18 03:50 36.7 C 61 18 134/55 L 93 Laboratory Results Short CBC 12/26/18 12/27/18 Range/Units 18:34 07:12 WBC 10.00 7.42 (4.8-10.8) K/uL Hgb 11.4 L 10.8 L (12.0-16.0) g/dL Hct 35.9 L 34.1 L (37-47) % Plt Count 284 246 (130-400) K/uL BMP 12/26/18 12/27/18 18:34 07:12 Sodium 139 139 Potassium 3.8 3.7 Chloride 100 102 Carbon Dioxide 33 H 32 BUN 17 14 Creatinine 1.17 1.00 Glucose 97 96 Calcium 8.4 L 8.3 L Cardiac Enzymes 12/26/18 Range/Units 18:34 Troponin I < 0.015 (0-0.045) ng/ml Urine 12/26/18 Range/Units 18:30 Urine Color Yellow Urine Appearance Clear (Clear) Urine pH 7.0 (4.5-7.5) Ur Specific [place] 1.009 (1.000-1.030) Urine Protein Negative (Negative) Urine Glucose (UA) Negative (Negative)
[2018-12-27] MEDS: ATORVASTATIN 10 MG TAB PO SCH (20:19)
[2018-12-27] MEDS: POTASSIUM CHLORIDE 20 MEQ TABCR PO SCH (20:19)
[2018-12-28] MEDS: LEVOTHYROXINE SODIUM 25 MCG TABLET PO SCH (05:46)
[2018-12-28 07:42] LABS: BUN Creatinine Ratio 16.3 (10-20); Calcium 8.4 mg/dl (8.5-10.1); Creatinine Clr Calc Pharmacy 28.3 ml/min; Est GFR (African American) 42.9; Potassium 3.6 mmol/L (3.5-5.1)
[2018-12-28] MEDS: PANTOprazole 40 MG TAB PO SCH (07:57)
[2018-12-28] MEDS: METOPROLOL TARTRATE 25 MG TAB PO SCH (07:57)
[2018-12-28] MEDS: CALCIUM 600MG + VIT D 400 IU TAB PO SCH ×3 (07:58→15:52)
[2018-12-28] MEDS: cephALEXin 250 MG CAP PO SCH ×2 (07:58→12:25)
[2018-12-28] MEDS: SPIRONOLACTONE 25 MG TAB PO SCH (07:58)
[2018-12-28] MEDS: HEPARIN SOD 5,000 UNIT/0.5 ML VIAL SQ SCH (07:58)
[2018-12-28] MEDS: FUROSEMIDE 80 MG TAB PO SCH ×2 (07:58→15:52)
[2018-12-28] MEDS: AMLODIPINE BESYLATE 5 MG TAB PO SCH (07:59)
[2018-12-28] MEDS: TRIAMCINOLONE ACET 0.1% CR 15 GM TUBE TOP SCH (07:59)
[2018-12-28] MEDS: CLOPIDOGREL BISULFATE 75 MG TAB PO SCH (07:59)
[2018-12-28 10:43] LABS: Creatinine Clr Calc Pharmacy 29.8 ml/min; Est GFR (African American) 45.9; Est GFR (Non-African American) 39.6
--- NOTE | 2018-12-28 15:19 | Hospitalist Progress Note ---
Date of Service December 28, 2018 Assessment & Plan (1) Diastolic heart failure: Chronic Diastolic Heart Failure CXR:No significant change compared to the prior study. No acute process. Last ECHO: EF: 60-65% Recently increased lasix to 80mg BID [facility] Continue Lasix, Spironolactone Appreciate Cardiology Input Monitor Volume status Needs follow-up with cardiology upon discharge (2) Leg swelling: Possible Right Leg Cellulitis No signs of sepsis Continue Keflex Day #2 (3) Paroxysmal A-fib: Recent hospitalization in November with A. fib with RVR and there was reverted to sinus rhythm with cardioversion Currently in Sinus Continue Metoprolol 12.5mg BID Not a candidate for long-term anticoagulation as per prior notes (4) Ambulatory dysfunction: PT/OT prior to discharge (5) Cerebrovascular disease: H/O CVA Continue Plavix, Statin (6) Hypothyroidism: Continue replacement (7) CKD (chronic kidney disease) stage 3, GFR 30-59 ml/min: Renal function at baseline Monitor (8) HTN (hypertension): BP Variable Continue amlodipine, metoprolol (9) Dyslipidemia: Continue statin DVT Px: Heparin SQ CODE STATUS Full Code Disposition Refuses rehab placement To discharge home with home health Case management on board Subjective Patient is seen and examined at bedside Feels a lot better today Refuses rehab placement Leg edema, erythema improved Denies any chest pain, SOB, dizziness, nausea, abd pain Offers no other complaints Review of Systems Review of Systems: All systems reviewed & are unremarkable except as noted in HPI & below Physical Exam Physical Exam: Physical Exam: Vitals signs as noted above General Appearance:Moderately built and nourished, no apparent distress Head: normocephalic, Atraumatic Eyes: normal inspection, EOMI Neck: supple, Trachea midline Respiratory/Chest: Normal breath sounds, CTA Cardiovascular: S1, S2, No murmur Abdomen/GI:Soft, Non tender, Bowel sounds present Extremities/Musculoskelatal:normal inspection, RLE > LLE edema, R ankle erythema improved Neurologic/Psych:AAOX3, grossly no focal neurological deficits Skin: normal color, warm Results & Data Vital Signs (Past 12 Hours) Vital Signs Temp Pulse Pulse Resp BP Pulse Ox 12/28/18 15:03 65 12/28/18 11:49 36.4 C L 68 18 120/73 96 12/28/18 08:00 61 12/28/18 07:00 36.7 C 65 20 121/46 L 93 12/28/18 03:55 36.8 C 60 17 117/64 96 Laboratory Results [facility] 12/28/18 12/28/18 06:45 10:03 Sodium 137 Potassium 3.6 Chloride 98 Carbon Dioxide 34 H BUN 21 H Creatinine 1.31 H D 1.24 H Glucose 112 H Calcium 8.4 L
--- NOTE | 2018-12-28 15:28 | Discharge Summary ---
Date of Service December 28, 2018 Admission HPI Per Admitting Provider She is an 83-year-old female with significant past medical history of diastolic heart failure, history of CVA, hyperlipidemia, hypothyroidism chronic kidney disease stage III and type 2 diabetes has been complaining of increasing leg swelling with difficulty in ambulation, apparently she has had an attack of atrial fibrillation with RVR which is reverted to sinus rhythm by cardioversion in [facility]. At the time she was noted to have diastolic dysfunction as well. She has been complaining of increasing leg swelling with difficulty in ambulation since hospital discharge and her diuretics have been adjusted for that. Apparently she was seen in the cardiology clinic on Tuesday and received intravenous dose of Lasix of 40 mg and her doses of Lasix were increased to 80 twice daily. She woke up this morning with increasing leg swelling according to the granddaughter and she was advised to come to the emergency room for possible rehab placement from the hospital. She denies any symptoms except bilateral leg swelling. She does not have any chest pain, shortness of breath, any abdominal pain, nausea and/or vomiting, any problem with urine and her bowel habit. She denies any neurological symptoms as well. She has been ambulant at home with a walker. It has been difficult for the granddaughter to take care of her at home recently. Admission Exam Per Admitting Provider Physical Exam: Lying in bed comfortably Constitutional: well developed and well nourished; no acute distress and not ill appearing Eyes: PERRL, conjunctivae normal, anicteric sclerae ENMT: external ear and nose normal, oropharynx normal Neck: trachea midline, no thyromegaly Respiratory: normal respiratory effort; no respiratory distress Auscultation: lungs clear to auscultation bilaterally Cardiovascular: Rate/Rhythm: regular rate and regular rhythm Heart Sounds: no murmur Gastrointestinal (Abdomen): Inspection/Auscultation: abdomen normal to inspection, + abdomen distended (Minimally distended) and normal bowel sounds Percussion/Palpation: abdomen soft; abdomen nontender Musculoskeletal: No acute arthritis in any joints Neurologic: moves all extremities; no focal motor deficits Alert, awake and oriented x3 Lymphatic: no cervical or axillary lymphadenopathy Principal Diagnosis Chronic diastolic heart failure Possible right leg cellulitis Discharge Data Allergies Allergy/AdvReac Type Severity Reaction Status Date / Time aspirin Allergy Severe ANAPHYLAXIS, Verified 12/26/18 17:33 SWELLING Consultations 12/26/18 19:53 ED Decision to Admit Stat 12/27/18 09:09 Consult Case Management - Discharge Planning Routine Procedures Performed CXR:No significant change compared to the prior study. No acute process. Hospital Course (1) Diastolic heart failure: Chronic Diastolic Heart Failure CXR:No significant change compared to the prior study. No acute process. Last ECHO: EF: 60-65% Recently increased lasix to 80mg BID [facility] Continue Lasix, Spironolactone Appreciate Cardiology Input Monitor Volume status Needs follow-up with cardiology upon discharge (2) Leg swelling: Possible Right Leg Cellulitis No signs of sepsis Continue Keflex Day #2 (3) Paroxysmal A-fib: Recent hospitalization in November with A. fib with RVR and there was reverted to sinus rhythm with cardioversion Currently in Sinus Continue Metoprolol 12.5mg BID Not a candidate for long-term anticoagulation as per prior notes (4) Ambulatory dysfunction: PT/OT prior to discharge (5) Cerebrovascular disease: H/O CVA Continue Plavix, Statin (6) Hypothyroidism: Continue replacement (7) CKD (chronic kidney disease) stage 3, GFR 30-59 ml/min: Renal function at baseline Monitor (8) HTN (hypertension): BP Variable Continue amlodipine, metoprolol (9) Dyslipidemia: Continue statin DVT Px: Heparin SQ CODE STATUS Full Code Disposition Refuses rehab placement To discharge home with home health Case management on board Total Time Total Time Spent Total Time Spent (In Minutes): 25 Total Time Includes: Examination of the Patient, Discharge Planning, Medication Reconciliation, 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 With Other Providers and Other Discharge Plan Discharge Items Patient Disposition: Home - Home Health Services Reason For Visit: ACUTE DIASTOLIC HEART FAILURE Discharge Diagnosis: Chronic diastolic heart failure Possible right leg cellulitis Activity: Resume your previous activity Exercise/Sports: Gradually increase as tolerated Non-emergency contact: Primary Care Provider and Advanced Practice Nurse Call non-emergency contact if: you have any medication questions, your symptoms worsen, your pain is not controlled, your pain is worsening, your pain is unusual for you, your pain is concerning for you and you have a fever Follow-up/Referrals: Cathleen Infante DO [Primary Care Provider] - Diet: Heart Healthy Addtl Attending Provider Instructions: Follow-up with your primary care physician on January 02, 2019 at 12:45 PM Follow-up with your journeyman plumber Angelika Guillen PA-C on December 29, 2018 at 11:45 AM Complete the antibiotic course as prescribed for your right leg cellulitis Seek immediate medical attention if your symptoms reoccur or worsen Call your Primary Care doctor if any of the following symptoms or problems start or get worse: * Shortness of breath or difficulty breathing * Wake up at night short of breath * Chest pain * Cough * Swelling of your hands, feet, or legs * More fatigued or tired with your normal activity * Palpitations - sudden fast heart beats WEIGHT * Weigh yourself every morning after using the bathroom. * Use the same scale. * Wear the same amount of clothing. * Write your weight down on a chart. * Call your Primary Care doctor if you gain more than 2-3 pounds in 1-2 days. MEDICATIONS * Use this discharge instruction sheet for medication instructions. * Take your medications at the time your doctor ordered. * Do not skip a dose of your medicines. * If you miss a dose of medicine, take it as soon as possible, but DO NOT DOUBLE A DOSE. * Read your medicine information when you get home. * Know all of the side effects of your medicine. If in doubt, ask your pharmacist * Call your Primary Care doctor's office if you have any side effects. * Be sure all of your doctors know what medicine and herbs you take (including cold, flu, and herbal medicine). Take the following with you to your follow-up doctor appointments: * Weight Chart * Medication List * List of questions Do not drink excessive alcohol, beer or wine. Pending Studies at Discharge: No Stand-Alone Forms: [facility], Smoking Cessation Medications and DC Order Prescriptions: New cephalexin [Keflex] 250 mg capsule 250 mg PO Q6H 5 Days Qty: 20 RF: 0 Continued fluticasone propionate 50 mcg/actuation spray,suspension 2 spry intranasal DAILY PRN (Reason: Allergy Symptoms) RF: 0 albuterol sulfate [ProAir HFA] 90 mcg/actuation Hfa Aerosol Inhaler 2 puff INHALATION Q4H PRN (Reason: Shortness Of Breath Or Wheezing) RF: 0 nystatin 100,000 unit/gram cream 1 applic topical BID PRN (Reason: Skin Irritation) RF: 0 triamcinolone acetonide 0.1 % Cream 1 applic TOPICAL BID RF: 0 calcium carbonate-vitamin D3 [Oystercal-D] 500 mg(1,250mg) -400 unit Tablet 1 tab PO TIDM RF: 0 polyethylene glycol 3350 [Miralax] 17 gram/dose Powder 17 g PO DAILY PRN (Reason: SEVERE CONSTIPATION) RF: 0 acetaminophen 650 mg Tablet Extended Release 650 mg PO Q6H PRN (Reason: pain/fever) RF: 0 furosemide 40 mg tablet 80 mg PO BID17 RF: 0 spironolactone 25 mg tablet 25 mg PO DAILY RF: 0 potassium chloride 20 mEq tablet extended release 20 meq PO HS RF: 0 atorvastatin 10 mg tablet 10 mg PO QPM RF: 0 clopidogrel 75 mg tablet 75 mg PO QAM RF: 0 levothyroxine 25 mcg tablet 25 mcg PO QAM RF: 0 amlodipine 10 mg tablet 10 mg PO QAM RF: 0 pantoprazole 40 mg tablet,delayed release (DR/EC) 40 mg PO QAM RF: 0 metoprolol tartrate 25 mg tablet 12.5 mg PO BID RF: 0 albuterol sulfate 2.5 mg /3 mL (0.083 %) Solution For Nebulization 2.5 mg INHALATION DIRECTED PRN (Reason: Shortness Of Breath Or Wheezing) RF: 0 Discharge Orders: Discharge Order (Routine); Ordered 12/28/18 Ordered By: West Rossi Admission Data Admit Date/Time: 12/26/18 21:13 Attending Provider: West Rossi Admit Provider: Nellie Bragg Primary Care Provider: Cathleen Infante Other Providers: Brandon Blanchard Manabendra Other Interventions: Discharge Summary Assessment (RN) Last Done: 12/28/18 15:44 DC Date/Time DO NOT enter until pt leaves facility: 12/28/18 17:20
[2018-12-28] MEDS ORDERED: cephALEXin 250 MG CAP PO SCH (17:00)
== END 2018-12-28 17:20 | disposition home health service (06) ==
LOC: 2W 16:36 → ED 16:36 → SUATTDRO 21:13 → 2W 21:49

== ENCOUNTER 2022-12-31 22:09 | Inpatient (IN) ==
--- OUTSIDE RECORDS SUMMARY | 2022-12-31 22:16 | External Medical Summary | Summary of Care ---
Author Name Unknown Organization [facility] Address [address] [place] [address] Phone [phone] Care Team Providers Care Sleep Medicine Physician Name Role Phone Ketan Jacob MD Primary Care Provider Reason for Visit * Reason Comments Outpatient Testing Encounter Details Date Type Department Care Team Description 09/27/2022 Laboratory Laboratory, [facility] [address] [place] [address] [facility] [address] [place] [address] Edema, unspecified type; Acquired hypothyroidism; Permanent atrial fibrillation (HCC); Hypertensive heart and kidney disease with chronic diastolic congestive heart failure and stage 3b chronic kidney disease (HCC) Allergies Active Allergy Reactions Severity Noted Date Comments Aspirin Nausea/vomiting 08/19/2011 documented as of this encounter (statuses as of 09/27/2022) Medications Medication Sig Dispensed Refills Start Date End Date Status Incontinence Supply Disposable (DEPEND ADJUSTABLE UNDERWEAR LG) MISCIndications:Ur inary incontinence Place one at bedtime a day 30 Each 5 07/19/2014 Active acetaminophen (TYLENOL) 325 MG Tablet Take 2 Tablets by mouth every 6 hours as needed for Pain. 0 Active Incontinence Supply Disposable (ATTENDS BRIEFS CLASSIC MEDIUM) MISCIndications:Ot her urinary incontinence Use up to 4-5 times a day for incontinence 5 Each 5 12/01/2016 Active Nebulizers (NEBULIZER COMPRESSOR) MISCIndications:Br onchitis, complicated Inhale via nebulizer. Use as directed. 1 Each 1 05/20/2017 Active Calcium Carb-Cholecalcifer ol (OYSTERCAL-D) 500-400 MG-UNIT TABS TAKE 1 TABLET 3X A DAY, WITH MEALS, TO HELP WITH BONES 270 Tab 1 11/25/2017 Active fluticasone (FLONASE) 50 MCG/ACT nasal sprayIndications:S inus congestion Administer 2 Sprays into each nostril daily. 1 Inhaler 1 06/20/2018 Active Nystatin 239213 UNIT/GM External Powder (Nystop)Indication s:Intertrigo Apply topically to affected area 3 times a day. Apply to groin 60 g 1 11/20/2020 Active Nystatin 711201 UNIT/GM External CreamIndications:I ntertrigo Apply topically to affected area 2 times a day. To affacted area for two weeks. 30 g 1 11/20/2020 Active Triamcinolone Acetonide 0.1 % External Ointment (Aristocort)Indica tions:Excoriation, Xerosis cutis Apply to itchy/rashy areas on legs until resolved, then when flaring (see printed regimen on checkout sheet) 454 g 0 11/24/2021 Active Levothyroxine Sodium 25 MCG Oral Tablet (Levoxyl)Indicatio ns:Hypothyroidism, unspecified type 1 tablet daily 30 minutes prior to breakfast or other meds. 90 Tablet 2 12/28/2021 Active Magnesium 400 MG Oral Tablet Take 1 Tablet by mouth in the morning. 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 180 Tablet 3 07/01/2022 Active Vitamin B-12 1000 MCG Oral Tablet (Cyanocobalamin)In dications:Encounte r for long-term (current) use of other medications Take 1 Tablet by mouth in the morning. 100 Tablet 3 07/23/2022 Active Spironolactone 25 MG Oral Tablet (Aldactone) Take 0.5 Tablets by mouth in the morning. 90 Tablet 3 08/09/2022 Active Baclofen 10 MG Oral Tablet (Lioresal) Take 0.5 Tablets by mouth in the morning and 0.5 Tablets before bedtime. 90 Tablet 1 09/09/2022 Active Pantoprazole Sodium 40 MG Oral Tablet Delayed Release (Protonix)Indicati ons:Gastroesophage al reflux disease TAKE 1 TABLET BY MOUTH EVERY DAY IN THE MORNING 90 Tablet 2 09/09/2022 Active Clopidogrel Bisulfate 75 MG Oral Tablet (pLAVix)Indication s:History of CVA (cerebrovascular accident) TAKE 1 TABLET (75 MG) BY MOUTH IN THE MORNING. 90 Tablet 2 09/09/2022 Active Torsemide 20 MG Oral Tablet (Demadex) Take 2 Tablets by mouth daily AND 1 Tablet every afternoon. 90 Tablet 0 09/23/2022 Active Doxycycline Hyclate 100 MG Oral Capsule Take 1 Capsule by mouth in the morning and 1 Capsule before bedtime. Do all this for 10 days. Until gone.. 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 07/08 Overview: Right Gastro-esophageal reflux disease without esophagitis 07/10/2020 Senile osteoporosis 07/10/2020 Chronic kidney disease, stage 3b 021 Overview: Per CKD protocol Chronic diastolic heart failure 05/08/19 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 heart failure and stage 3b chronic kidney disease 12/17/2019 Overview: Per CKD protocol Cerebrovascular disease 03/09/2019 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 Aortic atherosclerosis 01/02/2019 Permanent atrial fibrillation 01/02/2019 Bilateral lower extremity edema 09/02/19 18 Chronic pain of left knee 09/01/2017 Dyslipidemia, goal LDL below 130 013 History of CVA (cerebrovascular accident ) 03/24/2012 Hypothyroidism 06/28/2008 Osteoarthrosis documented as of this encounter (statuses as of 09/27/2022) Resolved Problems Problem Noted Date Resolved Date Type 2 diabetes mellitus wit h stage 3b chronic kidney disease, without long-term current use of insulin 11/12/202103/10 Open wnd of scalp 11/12/2021 03/19/2022 Diabetes mellitus with stage 3 chronic kidney di sease 07/10/2020 03/19/2022 Chronic kidney disease, stage 3b 06/17/2020 11/12/2021 Overview: Per CKD protocol Type 2 diabetes mellitus wit h stage 3b chronic kidney disease 06/17/2020 11/12/2021 Overview: Per CKD protocol Diabetes mellitus with stage 3 chronic kidney di sease 12/17/2019 06/19/2020 Overview: Per CKD protocol Paroxysmal atrial fibrillation 03/09/2019 0 07/08/2021 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 heart failure and stage 3 chronic kidney disease 01/02/2019 12/20/2019 Overview: Per CKD protocol Type 2 diabetes mellitus wit h stage 3 chronic kidney disease, without long-term current use of insulin 05/15/201812/08 Overview: Per CKD protocol Other chest pain 09/01/2017 04/26/2018 Benign hypertension with CKD (chronic kidney disease) stage III 10/15/2013 02/15/2019 Overview: history Hip fracture 04/15/2013 07/08/2021 KIDNEY DZ,CHRONIC (GFR 30-59) STAGE III 07/22/26 1106/19/2020 Overview: Per CKD Protocol, #1 Dyslipidemia, goal to be determined 01/21/2009 03/24/2012 Overview: Per Lipid Taxonomy. ADVANCE DIRECTIVE INFORMATION 10/30/2004 Overview: No, Advance Directive brochure given to patient at prior appointment. Need for prophylactic vaccin ation and inoculation against viral disease 12/02/2000 12/01/2016 Overview: ICD-10 update of inactive term HTN, goal below 140/90 2 Osteoporosis 11/12/2021 PURE HYPERCHOLESTEROLEM 01/22/20 09 Overview: Per Lipid Taxonomy. documented as of this encounter (statuses as of 09/27/2022) Immunizations Name Administration Dates Next Due Pneumococcal Conjugate Vacc, 13 Valent (Prevnar) 11/14/2015 Pneumococcal Polysaccharide PPV23 (Pneumovax) 06/29/2010 Season Influenza, Cell Culte r, 18+ Yrs, With Preserv (Flucelvax) 12/29/2012 Season Influenza, Quad, PF, Adjuvanted, 65+ Yrs, IM (FLUAD) 11/21/2019 Seasonal Influenza, PF, 6 mo ns & Above, IM , (Flulaval) 12/20/2017,12/01/2016 Seasonal Influenza, Quadriva lent Hd (Fluzone Hd) 11/12/2021,11/20/2020 Seasonal Influenza, Quadriva lent, No Preserve, IM 11/14/2015,11/21/2014 Seasonal Influenza, Split, I IV3, With Preserve, Inj 11/20/2013,03/24/2012,12/10/2010,11/14,12/09/2005 Seasonal Influenza, Trivalen t, Adjuvanted, 65+ yrs 10/25/2018 TD - Tetanus/Diptheria (ADULT) 12/21/2013 TD, Preservative Free 12/21/2013 documented as of this encounter Social History Tobacco Use Types Packs/Day Years Used Date Smoking Tobacco: Never Smokeless Tobacco: Never Alcohol Use Standard Drinks/Week Comments No 0 (1 standard drink = 0.6 oz pur e alcohol) Sex Assigned at Date Recorded Female 05/15/2018 1:09 PM E [employer] Job Start Date Occupation Industry Not on file Not on file Not on file documented as of this encounter Plan of Treatment Upcoming Encounters Date Type Specialty Care Team Description 11/19/2022 Cardiac Studies Cardiac Studies 12/14/2022 [facility] Visit [facility] [address] [phone]/15/2023 Office Visit Cardiology Angelika Guillen PA-C [address] [place] [address] Pending Results Name Type Priority Associated Diagnoses Date /Time BASIC METABOLIC PANEL Lab Routine Edema, unspecified type 09/27/2022 11:25 AM EDT TSH WITH FREE T4 IF INDICATED Lab Routine Acquired hypothyroidism 09/27/2022 11:25 AM EDT CBC WITH WBC DIFFERENTIAL Lab Routine Edema, unspecified type Permanent atrial fibrillation (HCC) Hypertensive heart and kidney disease with chronic diastolic congestive heart failure and stage 3b chronic kidney disease (HCC) Acquired hypothyroidism 09/27/2022 11:25 AM EDT CBC Lab Routine Edema, unspecified type Permanent atrial fibrillation (HCC) Hypertensive heart and kidney disease with chronic diastolic congestive heart failure and stage 3b chronic kidney disease (HCC) Acquired hypothyroidism 09/27/2022 11:25 AM EDT DIFFERENTIAL, AUTOMATED Lab Routine Edema, unspecified type Permanent atrial fibrillation (HCC) Hypertensive heart and kidney disease with chronic diastolic congestive heart failure and stage 3b chronic kidney disease (HCC) Acquired hypothyroidism 09/27/2022 11:25 AM EDT Health Maintenance Due Date Last Done Comments COVID-19 Vaccine (#1) 04/06/1936 Zoster Vaccines (1 of 2) 10/07/1983 DTaP,Tdap,and Td Vaccines (1 - Tdap) 12/22/2013 12/21/2013, 12/21/2013 DXA Scan 11/23/2015 11/22/2013, 09/0 08/2011, 04/18/2009, Additional history exists Albumin/Creatinine Ratio 03/09/2020 03/09/2019 Depression Screening, Annual for Pts 12 and Over 01/03/2021 01/04/2020 *BISPHONATE OR OTHER ACCEPTABLE MEDICATION NEEDED FOR OSTEOPOROSIS (REFER TO SMARTSET #1146) 01/23/2021 Influenza Vaccine (FLU shot) (#1) 2022 11/12/2021, 11/20/2020, 11/21/2019, Additional history exists TSH 12/04/2022 12/04/2021, 11/07, 08/06/2019, Additional history exists CKD PHOS USE SMARTSET 61267 12/22/202212/08, 11/24/2020, 06/20/2018, Additional history exists CKD HGB USE SMARTSET 37073 03/19/202303/19, 03/19/2022, 12/22/2021, Additional history exists HbA1c 03/19/2023 03/19/2022, 07/09, 11/24/2020, Additional history exists Pneumococcal Vaccine: 65+ Years Completed 11/14/2015, 06/29/2010 VITAMIN D LEVEL ONCE IN A LIFETIME-USE SMARTSET# [id number] Completed 03/19/2022, 07/19/2014, 10/15/2013, Additional history exists GARDASIL-HPV IMMUNIZATION SERIES Aged Out No longer eligible based on patient's age to complete this topic Hepatitis B Aged Out No longer eligi ble based on patient's age to complete this topic MENINGOCOCCAL (MENACTRA/MENVEO) Aged Out No longer eligible based on patient's age to complete this topic documented as of this encounter Medical Devices Not on filedocumented as of this encounter Visit Diagnoses Diagnosis Edema, unspecified type Acquired hypothyroidism Unspecified hypothyroidism Permanent atrial fibrillation (HCC) Atrial fibrillation Hypertensive heart and kidney disease with chronic diastolic congestive heart failure and stage 3b chronic kidney disease (HCC) documented in this encounter Advance Directives Documents on File Type Date Recorded Patient Event Planning Intern 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 Code Status History Code Status Date Activated Date Inactivated Comments None 03/04/2004 12:53 PM 03/04/2004 1:53 PM Care Teams Sleep Medicine Physician Relationship Specialty Start Date End Date Ketan Jacob MD [address], [place] [phone] PCP - General Internal Medicine 08/05/21 documented as of this encounter
--- OUTSIDE RECORDS SUMMARY | 2022-12-31 22:16 | External Medical Summary | Summary of Care ---
Author Name Unknown Organization [facility] Address [address] [place] [address] Phone [phone] Care Team Providers Care Vp Public Relations Name Role Phone Ketan Jacob MD Primary Care Provider [phone] Reason for Visit * Reason Onset Date Comments Appointment 08/23/2022 Encounter Details Date Type Department Care Team Description 08/23/2022 Telephone Cardiology, [facility] [address] [facility] [place] [address] Angelika Guillen PA-C [address] [facility] [address] Appointment Allergies Active Allergy Reactions Severity Noted Date Comments Aspirin Nausea/vomiting 08/19/2011 documented as of this encounter (statuses as of 11/22/2022) Medications Medication Sig Dispensed Refills Start Date End Date Status Incontinence Supply Disposable (DEPEND ADJUSTABLE UNDERWEAR LG) MISCIndications:Uri nary incontinence Place one at bedtime a day 30 Each 5 07/19/2014 Active acetaminophen (TYLENOL) 325 MG Tablet Take 2 Tablets by mouth every 6 hours as needed for Pain. 0 Active Incontinence Supply Disposable (ATTENDS BRIEFS CLASSIC MEDIUM) MISCIndications:Oth er urinary incontinence Use up to 4-5 times a day for incontinence 5 Each 5 12/01/2016 Active Nebulizers (NEBULIZER COMPRESSOR) MISCIndications:Bro nchitis, complicated Inhale via nebulizer. Use as directed. 1 Each 1 05/20/2017 Active Calcium Carb-Cholecalcifero l (OYSTERCAL-D) 500-400 MG-UNIT TABS TAKE 1 TABLET 3X A DAY, WITH MEALS, TO HELP WITH BONES 270 Tab 1 11/25/2017 Active fluticasone (FLONASE) 50 MCG/ACT nasal sprayIndications:Si nus congestion Administer 2 Sprays into each nostril daily. 1 Inhaler 1 06/20/2018 Active Nystatin 809507 UNIT/GM External Powder (Nystop)Indications :Intertrigo Apply topically to affected area 3 times a day. Apply to groin 60 g 1 11/20/2020 Active Nystatin 603848 UNIT/GM External CreamIndications:In tertrigo Apply topically to affected area 2 times a day. To affacted area for two weeks. 30 g 1 11/20/2020 Active Triamcinolone Acetonide 0.1 % External Ointment (Aristocort)Indicat ions:Excoriation,Xe rosis cutis Apply to itchy/rashy areas on legs until resolved, then when flaring (see printed regimen on checkout sheet) 454 g 0 11/24/2021 Active Magnesium 400 MG Oral Tablet Take 1 Tablet by mouth in the morning. 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 180 Tablet 3 07/01/2022 Active Vitamin B-12 1000 MCG Oral Tablet (Cyanocobalamin)Ind ications:Encounter for long-term (current) use of other medications Take 1 Tablet by mouth in the morning. 100 Tablet 3 07/23/2022 Active Spironolactone 25 MG Oral Tablet (Aldactone) Take 0.5 Tablets by mouth in the morning. 90 Tablet 3 08/09/2022 Active documented as of this encounter (statuses as of 11/22/2022) Active Problems Problem Noted Date Prediabetes 03/22/2022 [...] CKD protocol Chronic diastolic heart failure 05/08/19 21 Hypertensive heart and kidne y disease with [...] as of this encounter (statuses as of 11/22/2022) Resolved Problems Problem Noted Date Resolved Date Type 2 diabetes mellitus wit h stage 3b chronic kidney disease, without long-term current use of insulin 11/12/2021 02 Open wnd of scalp 11/12/2021 03/19/2022 Diabetes [...] 07/08/2021 KIDNEY DZ,CHRONIC (GFR 30-59) STAGE III 08/29/19 10 06/19/2020 Overview: Per CKD Protocol, #1 Dyslipidemia, goal [...] as of this encounter (statuses as of 11/22/2022) Immunizations Name Administration Dates Next Due Pneumococcal Conjugate Vacc, 13 Valent (Prevnar) 11/14/2015 Pneumococcal Polysaccharide PPV23 (Pneumovax) 06/29/2010 SEASONAL INFLUENZA, PF, 6 M & Above, IM , (FLULAVAL or FLUZONE) 12/20/2017,12/01/2016 Season Influenza, Cell Culte r, 18+ Yrs, With Preserv (Flucelvax) 12/29/2012 Season Influenza, Quad, PF, Adjuvanted, 65+ Yrs, IM (FLUAD) 11/21/2019 Seasonal Influenza, Quadriva lent Hd (Fluzone Hd) [...] on file documented as of this encounter Miscellaneous Notes * Telephone Encounter - CRISTEL Santizo - 08/25/2022 10:30 AM EDT Otto returned call. Pt is scheduled 09/06/[address] Garcia. * Telephone Encounter - CRISTEL Santizo - 08/25/2022 8:44 AM EDT Left several messages on both Debbie and Otto's number with my direct # to call. * Telephone Encounter - CRISTEL Santizo - 08/24/2022 9:01 AM EDT LMOM, second attempt. * Telephone Encounter - CRISTEL Santizo - 08/23/2022 3:13 PM EDT LMOM. Will offer this week with Dr Garcia. * Telephone Encounter - Angelika Guillen PA-C - 08/23/2022 2:29 PM EDT Wait list or another provider/AP? * Telephone Encounter - rFederic Valente LPN - 08/23/2022 2:05 PM EDT Patient's granddaughter called and asked if appointment can be moved up. Patient couldn't be brought in today for an appointment as granddaughter had to take her son to an appointment in [place] andwouldn't make it back in time and feels like patient should be seen sooner then December. Please advise. documented in this encounter Plan of Treatment Upcoming Encounters Date Type Specialty Care Team Description 12/14/2022 Office Visit Family Medicine Ketan Jacob MD [address] [place] [address] 03/15/2023 Office Visit Cardiology Angelika Guillen PA-C [address] [facility] [place] [phone] Health Maintenance Due Date Last Done Comments COVID-19 Vaccine (#1) 04/06/1936 Zoster Vaccines (1 of 2) 10/07/1983 DTaP,Tdap,and Td Vaccines (1 - Tdap) 12/22/2013 12/21/2013, 12/21/2013 DXA Scan 11/23/2015 11/22/2013, 09/0 08/2011, 04/18/2009, Additional history exists Albumin/Creatinine Ratio 03/09/2020 03/09/2019 Depression Screening 01/03/2021 01/04/2020 *BISPHONATE OR OTHER ACCEPTABLE MEDICATION NEEDED FOR OSTEOPOROSIS (REFER TO SMARTSET #1146) 01/23/2021 Influenza Vaccine (FLU shot) (#1) 2022 11/12/2021, 11/20/2020, 11/21/2019, Additional history exists CKD PHOS USE SMARTSET 22130 12/22/202212/08, 11/24/2020, 06/20/2018, Additional history exists HbA1c 03/19/2023 03/19/2022, 07/09, 11/24/2020, Additional history exists CKD HGB USE SMARTSET 33147 09/28/202309/27, 09/27/2022, 03/19/2022, Additional history exists TSH 09/28/2023 09/27/2022, 11/08, 11/24/2020, Additional history exists Pneumococcal Vaccine: 65+ Years Completed 11/14/2015, 06/29/2010 Diabetic Foot Exam Discontinued 08/05/2021, 1 03/05/2019, 07/31/2018 VITAMIN D LEVEL ONCE IN A LIFETIME-USE SMARTSET# [id number] Completed 03/19/2022, 07/19/2014, 10/15/2013, Additional history exists [...] Not on filedocumented as of this encounter Advance Directives Documents on File Type Date Recorded 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 Code Status History Code Status Date Activated Date Inactivated Comments None 03/04/2004 12:53 PM 03/04/2004 1:53 PM Care Teams Vp Public Relations Relationship Specialty Start Date End Date Ketan Jacob MD [address] [place] [address] PCP - General Internal Medicine 08/05/21 documented as of this encounter
--- OUTSIDE RECORDS SUMMARY | 2022-12-31 22:16 | External Medical Summary | Summary of Care ---
Author Name Unknown Organization [facility] Address [address] [place] [address] Phone [phone] Care Team Providers Care [employer] Name Role Phone Ketan Jacob MD Primary Care Provider [phone] Reason for Visit * Reason Comments eRx-Medication Refill Encounter Details Date Type Department Care Team Description 09/09/[address] [facility] [address] [place] [address] Ketan Jacob MD [address] [place] [address] Gastroesophageal reflux disease; History of CVA (cerebrovascular accident) Allergies Active Allergy Reactions Severity Noted Date Comments Aspirin Nausea/vomiting 08/19/2011 documented as of this encounter (statuses as of 09/09/2022) Medications Medication Sig Dispensed Refills Start Date End Date Status Incontinence Supply Disposable (DEPEND ADJUSTABLE UNDERWEAR LG) MISCIndications:U rinary incontinence Place one at bedtime a day 30 Each 5 5 Active acetaminophen (TYLENOL) 325 MG Tablet Take 2 Tablets by mouth every 6 hours as needed for Pain. 0 Active Incontinence Supply Disposable (ATTENDS BRIEFS CLASSIC MEDIUM) MISCIndications:O ther urinary incontinence Use up to 4-5 times a day for incontinence 5 Each 5 7 Active Nebulizers (NEBULIZER COMPRESSOR) MISCIndications:B ebonie morales Inhale via nebulizer. Use as directed. 1 Each 1 8 Active Calcium Carb-Cholecalcife rol (OYSTERCAL-D) 500-400 MG-UNIT TABS TAKE 1 TABLET 3X A DAY, WITH MEALS, TO HELP WITH BONES 270 Tab 1 8 Active fluticasone (FLONASE) 50 MCG/ACT nasal sprayIndications: Sinus congestion Administer 2 Sprays into each nostril daily. 1 Inhaler 1 9 Active Nystatin 599618 UNIT/GM External Powder (Nystop)Indicatio ns:Intertrigo Apply topically to affected area 3 times a day. Apply to groin 60 g 1 1 Active Nystatin 485595 UNIT/GM External CreamIndications: Intertrigo Apply topically to affected area 2 times a day. To affacted area for two weeks. 30 g 1 1 Active Triamcinolone Acetonide 0.1 % External Ointment (Aristocort)Indic ations:Excoriatio n,Xerosis cutis Apply to itchy/rashy areas on legs until resolved, then when flaring (see printed regimen on checkout sheet) 454 g 0 2 Active Levothyroxine Sodium 25 MCG Oral Tablet (Levoxyl)Indicati ons:Hypothyroidis m, unspecified type 1 tablet daily 30 minutes prior to breakfast or other meds. 90 Tablet 2 2 Active Magnesium 400 MG Oral Tablet Take 1 Tablet by mouth in the morning. 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 Take 2 tablets in the afternoon. 360 Tablet 3 3 Active Vitamin B-12 1000 MCG Oral Tablet (Cyanocobalamin)I ndications:Encoun ter for long-term (current) use of other medications Take 1 Tablet by mouth in the morning. 100 Tablet 3 3 Active Spironolactone 25 MG Oral Tablet (Aldactone) Take 0.5 Tablets by mouth in the morning. 90 Tablet 3 3 Active Baclofen 10 MG Oral Tablet (Lioresal) Take 0.5 Tablets by mouth in the morning and 0.5 Tablets before bedtime. 90 Tablet 1 3 Active Pantoprazole Sodium 40 MG Oral Tablet Delayed Release (Protonix)Indicat ions:Gastroesopha geal reflux disease TAKE 1 TABLET BY MOUTH EVERY DAY IN THE MORNING 90 Tablet 2 3 Active Clopidogrel Bisulfate 75 MG Oral Tablet (pLAVix)Indicatio ns:History of CVA (cerebrovascular accident) TAKE 1 TABLET (75 MG) BY MOUTH IN THE MORNING. 90 Tablet 2 3 Active Pantoprazole Sodium 40 MG Oral Tablet Delayed Release (Protonix)Indicat ions:Gastroesopha geal reflux disease Take 1 Tablet (40 mg) by mouth in the morning. 90 Tablet 2 2 09/10/19 23 Discontinued Clopidogrel Bisulfate 75 MG Oral Tablet (pLAVix)Indicatio ns:History of CVA (cerebrovascular accident) Take 1 Tablet (75 mg) by mouth in the morning. 90 Tablet 2 2 09/10/19 23 Discontinued documented as of this encounter (statuses as of 09/09/2022) Active Problems Problem Noted Date Prediabetes 03/22/2022 [...] as of this encounter (statuses as of 09/09/2022) Resolved Problems Problem Noted Date Resolved Date [...] as of this encounter (statuses as of 09/09/2022) Immunizations Name Administration Dates Next Due Pneumococcal Conjugate Vacc, 13 Valent (Prevnar) 11/14/2015 Pneumococcal Polysaccharide PPV23 (Pneumovax) 06/29/2010 Seasonal Influenza, Cell Cul ture, 18 Yrs & Older 12/29/2012 Seasonal Influenza, Quadriva lent Hd (Fluzone Hd) 11/12/2021,11/20/2020 Seasonal Influenza, Quadriva lent, No Preserve, 6 Mons & Above, IM 12/20/2017,12/01/2016 Seasonal Influenza, Quadriva lent, No Preserve, Adjuvanted, 65+ Yrs, IM 11/21/2019 Seasonal Influenza, Quadriva lent, No Preserve, IM [...] encounter Miscellaneous Notes * Telephone Encounter - Jian Cartagena [facility] - 09/09/2022 5:14 PM EDTSigned Prescriptions: Disp Refills Pantoprazole Sodium 40 MG Oral Tablet Maribell*90 Tab*2 Sig: TAKE 1 TABLET BY MOUTH EVERY DAY IN THE MORNINGAuthorizing Provider: Jean Paul JACOB User: JIAN CARTAGENA Clopidogrel Bisulfate 75 MG Oral Tablet (p*90 Tab*2 Sig: TAKE 1 TABLET (75 MG) BY MOUTH IN THE MORNING.Authorizing Provider: Jean Paul JACOB User: JIAN CARTAGENA documented in this encounter Plan of Treatment Upcoming Encounters Date Type Specialty Care Team Description 12/14/2022 Office Visit Family Medicine Ketan Jacob MD [address] [place] [address] 03/15/2023 Office Visit Cardiology Angelika Guillen PA-C [address] [place] [id number] Health Maintenance Due Date Last Done Comments COVID-19 Vaccine (#1) 04/06/1936 Zoster Vaccines (1 of 2) 10/07/1983 DTaP,Tdap,and Td Vaccines (1 - Tdap) 12/22/2013 12/21/2013, 12/21/2013 DXA Scan 11/23/2015 11/22/2013, 08/2011, 04/18/2009, Additional history exists Albumin/Creatinine Ratio 03/09/2020 03/09/2019 Depression Screening, Annual for Pts 12 and Over 01/03/2021 01/04/2020 *BISPHONATE OR OTHER ACCEPTABLE MEDICATION NEEDED FOR OSTEOPOROSIS (REFER TO SMARTSET #1146) 01/23/2021 Influenza Vaccine (FLU shot) (#1) 2022 11/12/2021, 11/20/2020, 11/21/2019, Additional history exists TSH 12/04/2022 12/04/2021, 11/07, 08/06/2019, Additional history exists CKD PHOS USE SMARTSET 60913 12/22/202212/08, 11/24/2020, 06/20/2018, Additional history exists CKD HGB USE SMARTSET 78829 03/19/202303/19, 03/19/2022, 12/22/2021, Additional history exists HbA1c 03/19/2023 03/19/2022, 07/09, 11/24/2020, Additional history exists Pneumococcal Vaccine: 65+ Years Completed 11/14/2015, 06/29/2010 VITAMIN D LEVEL ONCE IN A LIFETIME-USE SMARTSET# [id number] Completed 03/19/2022, 07/19/2014, 10/15/2013, Additional history exists [...] as of this encounter Visit Diagnoses Diagnosis Gastroesophageal reflux disease Esophageal reflux History of CVA (cerebrovascular accident) Transient ischemic attack (TIA), and cerebral infarction without residual deficits documented in this encounter Advance Directives Documents on File 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 Code Status History Code Status Date Activated Date Inactivated Comments None 03/04/2004 12:53 PM 03/04/2004 1:53 PM Care Teams [employer] Relationship Specialty Start Date End Date Ketan Jacob MD [address], [place] [id number] PCP - General Internal Medicine 08/05/21 documented as of this encounter
--- OUTSIDE RECORDS SUMMARY | 2022-12-31 22:16 | External Medical Summary | Summary of Care ---
Author Name Unknown Organization [facility] Address [address] [place] [address] Phone [phone] Care Team Providers Care [employer] Name Role Phone Ketan Jacob MD Primary Care Provider [phone] Reason for Visit * Reason Comments eRx-Medication Refill Encounter Details Date Type Department Care Team Description 10/31/2022 Refill [facility] [address] [place] [address] Ketan Jacob MD [address] [place] [address] Hypothyroidism, unspecified type Allergies Active Allergy Reactions Severity Noted Date Comments Aspirin Nausea/vomiting 08/19/2011 documented as of this encounter (statuses as of 11/01/2022) Medications Medication Sig Dispensed Refills Start Date [...] 5 7 Active Nebulizers (NEBULIZER COMPRESSOR) MISCIndications:B carmen, ebonie Inhale via nebulizer. Use as directed. 1 Each 1 8 Active Calcium Carb-Cholecalcife rol (OYSTERCAL-D) 500-400 MG-UNIT TABS TAKE 1 TABLET 3X A DAY, WITH MEALS, TO HELP WITH BONES 270 Tab 1 8 Active fluticasone (FLONASE) 50 MCG/ACT nasal sprayIndications: Sinus congestion Administer 2 Sprays into each nostril daily. 1 Inhaler 1 9 Active Nystatin 749026 UNIT/GM External Powder (Nystop)Indicatio ns:Intertrigo Apply topically to affected area 3 times a day. Apply to groin 60 g 1 1 Active Nystatin 563652 UNIT/GM External CreamIndications: Intertrigo Apply topically to affected area 2 times a day. To affacted area for two weeks. 30 g 1 1 Active Triamcinolone Acetonide 0.1 % External Ointment (Aristocort)Indic ations:Excoriatio n,Xerosis cutis Apply to itchy/rashy areas on legs until resolved, then when flaring (see printed regimen on checkout sheet) 454 g 0 2 Active Magnesium 400 MG Oral Tablet [...] before bedtime. 180 Tablet 3 3 Active Vitamin B-12 1000 [...] THE MORNING. 90 Tablet 2 3 Active Torsemide 20 MG Oral Tablet (Demadex) Take 2 Tablets by mouth daily AND 1 Tablet every afternoon. 270 Tablet 0 3 Active Levothyroxine Sodium 25 MCG Oral Tablet (Levoxyl)Indicati ons:Hypothyroidis m, unspecified type TAKE 1 TABLET BY MOUTH DAILY 30 MINUTES PRIOR TO BREAKFAST OR OTHER MEDS. 90 Tablet 3 3 Active Levothyroxine Sodium 25 MCG Oral Tablet (Levoxyl)Indicati ons:Hypothyroidis m, unspecified type 1 tablet daily 30 minutes prior to breakfast or other meds. 90 Tablet 2 2 11/02/19 23 Discontinued documented as of this encounter (statuses as of 11/01/2022) Active Problems Problem Noted Date Prediabetes 03/22/2022 [...] as of this encounter (statuses as of 11/01/2022) Resolved Problems Problem Noted Date Resolved Date [...] as of this encounter (statuses as of 11/01/2022) Immunizations Name Administration Dates Next Due Pneumococcal [...] encounter Miscellaneous Notes * Telephone Encounter - Karmen Anne [facility] - 11/01/2022 10:56 AM EDTSigned Prescriptions: Disp Refills Levothyroxine Sodium 25 MCG Oral Tablet (L*90 Tab*3 Sig: TAKE 1TABLET BY MOUTH DAILY 30 MINUTES PRIOR TO BREAKFAST OR OTHER MEDS.Authorizing Provider: Jean Paul JACOB User: KARMEN ANNE documented in this encounter Plan of Treatment Upcoming Encounters Date Type Specialty Care Team Description 11/19/2022 Cardiac Studies Cardiac Studies 12/14/2022 Office Visit Family Medicine [facility]an Jacob [facility] [address] [place] [address] 03/15/2023 Office Visit Cardiology Angelika Guillen PA-C [address] [place] [address] Health Maintenance Due Date Last Done Comments [...] Additional history exists CKD PHOS USE SMARTSET 41196 12/22/202212/08, 11/24/2020, 06/20/2018, Additional history exists HbA1c 03/19/2023 03/19/2022, 07/09, 11/24/2020, Additional history exists CKD HGB USE SMARTSET 66922 09/28/202309/27, 09/27/2022, 03/19/2022, Additional history exists TSH 09/28/2023 09/27/2022, 11/08, 11/24/2020, Additional history exists Pneumococcal Vaccine: 65+ Years Completed 11/14/2015, 06/29/2010 Diabetic Foot Exam Discontinued 08/05/2021, 1 03/05/2019, 07/31/2018 VITAMIN D LEVEL ONCE IN A LIFETIME-USE SMARTSET# [id number] Completed 03/19/2022, 07/19/2014, 10/15/2013, Additional history exists [...] as of this encounter Visit Diagnoses Diagnosis Hypothyroidism, unspecified type documented in this encounter Advance Directives Documents on File 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 Code Status History Code Status Date Activated Date Inactivated Comments None 03/04/2004 12:53 PM 03/04/2004 1:53 PM Care Teams Travel [place] Relationship Specialty Start Date End Date Ketan Jacob MD [address] [place] [address] PCP - General Internal Medicine 08/05/21 documented as of this encounter
--- OUTSIDE RECORDS SUMMARY | 2022-12-31 22:16 | External Medical Summary | Summary of Care ---
Author Name Unknown Organization [facility] Address [address] [place] [address] Phone [phone] Care Team Providers Care Maintenance Helper Utility Engineer Name Role Phone Ketan Jacob MD Primary Care Provider [phone] Reason for Visit * Reason Comments Follow Up Encounter Details Date Type Department Care Team Description 09/06/2022 Office Visit Cardiology, [facility] [address] [place] [address] Kiko Garcia, [address] [place] [address] Chronic diastolic heart failure (HCC)*; Permanent atrial fibrillation (HCC) Allergies Active Allergy Reactions Severity Noted Date Comments Aspirin Nausea/vomiting 08/19/2011 documented as of this encounter (statuses as of 09/06/2022) Medications Medication Sig Dispensed Refills Start Date [...] daily. 1 Inhaler 1 06/20/2018 Active Nystatin 167512 UNIT/GM External Powder (Nystop)Indications :Intertrigo Apply topically to affected area 3 times a day. Apply to groin 60 g 1 11/20/2020 Active Nystatin 654197 UNIT/GM External CreamIndications:In tertrigo Apply topically to affected area 2 times a day. To affacted area for two weeks. 30 g 1 11/20/2020 Active Triamcinolone Acetonide 0.1 % External Ointment (Aristocort)Indicat ions:Excoriation,Xe rosis cutis Apply to itchy/rashy areas on legs until resolved, then when flaring (see printed regimen on checkout sheet) 454 g 0 11/24/2021 Active Pantoprazole Sodium 40 MG Oral Tablet Delayed Release (Protonix)Indicatio ns:Gastroesophageal reflux disease Take 1 Tablet (40 mg) by mouth in the morning. 90 Tablet 2 12/24/2021 Active Clopidogrel Bisulfate 75 MG Oral Tablet (pLAVix)Indications :History of CVA (cerebrovascular accident) Take 1 Tablet (75 mg) by mouth in the morning. 90 Tablet 2 12/24/2021 Active Levothyroxine Sodium 25 MCG Oral Tablet (Levoxyl)Indication s:Hypothyroidism, unspecified type 1 tablet daily 30 minutes [...] before bedtime. 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 Take 2 tablets in the afternoon. 360 Tablet 3 07/06/2022 Active Vitamin B-12 1000 MCG Oral Tablet [...] the morning and 0.5 Tablets before bedtime. 30 Tablet 1 08/13/2022 Active Additional Information Patient not taking.Reported on 09/06/2022 documented as of this encounter (statuses as of 09/06/2022) Active Problems Problem Noted Date Prediabetes 03/22/2022 [...] as of this encounter (statuses as of 09/06/2022) Resolved Problems Problem Noted Date Resolved Date [...] as of this encounter (statuses as of 09/06/2022) Immunizations Name Administration Dates Next Due Pneumococcal [...] Date Smoking Tobacco: Never Smokeless Tobacco: Never Tobacco Cessation:Counseling Given: Not Answered Alcohol Use Standard Drinks/Week Comments No 0 (1 standard drink = 0.6 oz pur e alcohol) Sex Assigned at Date Recorded Female 05/15/2018 1:09 PM E DT Job Start Date Occupation Industry Not on file Not on file Not on file documented as of this encounter Last Filed Vital Signs Vital Sign Reading Time Taken Comments Blood Pressure 128/56 09/06/2022 2:28 PM EDT Pulse 88 09/06/2022 2:28 PM EDT Temperature - - Respiratory Rate 16 09/06/2022 2:28 PM EDT Oxygen Saturation 97% 09/06/2022 2:28 PM EDT Inhaled Oxygen Concentration - - Weight 69.1 kg (152 lb 6.4 oz) 09/06/2022 2:28 P M EDT Height - - Body Mass Index 27.87 08/13/2022 1:41 PM EDT documented in this encounter Progress Notes * Kiko Garcia, DO - 09/06/2022 2:40 PM EDT Cardiology Outpatient Follow-up Sumi Eng is a 86 year old female who is seen for follow-up of atrial fibrillation. HPI: This is an 86-year-old female with dementia who is brought here today by her daughter in a wheelchair. She has chronic atrial fibrillation and chronic diastolic heart failure with lower extremity edema. No new cardiac complaints today. Previously, the daughter indicated that she was having some high heart rates. She had a Zio monitor placed that shows continuous atrial fibrillation with mostly appropriate heart rates. No other significant arrhythmias. 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 Aortic atherosclerosis (HCC) I70.0 Permanent atrial fibrillation (HCC) I48.21 Cerebrovascular disease I67.9 Hypertensive heart and kidney disease with chronic diastolic congestive heart failure and [id number] chronic kidney disease (HCC) I13.0, I50.32, N18.32 Chronic diastolic heart failure (HCC) I50.32 Chronic kidney disease, stage 3b (HCC) N18.32 Gastro-esophageal reflux disease without esophagitis K21.9 Senile osteoporosis M81.0 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 Mild dementia without behavioral disturbance, psychotic disturbance, mood disturbance, or anxiety ([facility]) F03.A0 Vitamin B 12 deficiency E53.8 Prediabetes R73.03 Past Surgical History: Procedure Laterality Date AORTOGRAM ABDOMINAL-TECH ONLY 07/08/2021 IMAGING SUPERVISION & INTERPRETATION ABDOMINAL AO performed by Silver Traore MD at [facility] IR ARTERIOGRAM EXTREMITY UNILATERAL Right 07/08/2021 IMAGING SUPERVISION & INTERPRETATION EXTREMITY UNILATERAL performed by Silver Traore MD at [facility] THROMBECTOMY, PERC PRIMARY ARTERIAL MECHANICAL, ADD-ON Right 07/08/2021 MECHANICAL THROMBECTOMY, ARTERIAL OR ARTERIAL BYPASS GRAFT, ADDITIONAL VESSEL performed by Silver Traore MD at [facility] THROMBECTOMY, PERC PRIMARY ARTERIAL MECHANICAL, INIT Right 07/08/2021 MECHANICAL THROMBECTOMY, ARTERIAL OR ARTERIAL BYPASS GRAFT, INITIAL VESSEL performed by Silver Traore MD at [facility] Family History Problem Relation Age of Onset Heart Disorder Other Hypertension Sister Hypertension Son Stroke Other Thyroid Disorder Other Social History Tobacco Use Smoking status: Never Smokeless tobacco: Never Vaping Use Vaping Use: Never used Substance Use Topics Alcohol use: No Drug use: No Review of patient's allergies indicates: Allergen Reactions Aspirin Nausea/vomiting Current Outpatient Medications Medication Sig Dispense Refill acetaminophen (TYLENOL) 325 MG Tablet Take 2 Tablets by mouth every 6 hours as needed for Pain. Calcium Carb-Cholecalciferol (OYSTERCAL-D) 500-400 MG-UNIT TABS TAKE 1 TABLET 3X A DAY, WITH MEALS, TO HELP WITH BONES 270 Tab 1 fluticasone (FLONASE) 50 MCG/ACT nasal spray Administer 2 Sprays into each nostril daily. 1 Inhaler 1 Nystatin 180222 UNIT/GM External Powder (Nystop) Apply topically to affected area 3 times a day. Apply to groin 60 g 1 Nystatin 762409 UNIT/GM External Cream Apply topically to affected area 2 times a day. To affacted area for two weeks. 30 g 1 Triamcinolone Acetonide 0.1 % External Ointment (Aristocort) Apply to itchy/rashy areas on legsuntil resolved, then when flaring (see printed regimen on checkout sheet) 454 g 0 Pantoprazole Sodium 40 MG Oral Tablet Delayed Release (Protonix) Take 1 Tablet (40 mg) by mouthin the morning. 90 Tablet 2 Clopidogrel Bisulfate 75 MG Oral Tablet (pLAVix) Take 1 Tablet (75 mg) by mouth in the morning.90 Tablet 2 Levothyroxine Sodium 25 MCG Oral Tablet (Levoxyl) 1 tablet daily 30 minutes prior to breakfast or other meds. 90 Tablet 2 Magnesium 400 MG Oral Tablet Take 1 Tablet by mouth in the morning. 90 Tablet 3 Eliquis 5 MG Oral Tablet (Apixaban) TAKE 1 TABLET BY MOUTH EVERY DAY IN THE MORNING AND BEFORE BEDTIME 180 Tablet 3 Atorvastatin Calcium 10 MG Oral Tablet (Lipitor) TAKE 1 TABLET ONCE DAILY FOR CHOLESTEROL 90 Tablet 3 Metoprolol Tartrate 100 MG Oral Tablet (Lopressor) Take 1 Tablet by mouth in the morning and 1 Tablet before bedtime. 180 Tablet 3 Furosemide 40 MG Oral Tablet (Lasix) Take 2 tablets in the morning. Take 2 tablets in the afternoon. 360 Tablet 3 Vitamin B-12 1000 MCG Oral Tablet (Cyanocobalamin) Take 1 Tablet by mouth in the morning. 100 Tablet 3 Spironolactone 25 MG Oral Tablet (Aldactone) Take 0.5 Tablets by mouth in the morning. 90 Tablet 3 Incontinence Supply Disposable (DEPEND ADJUSTABLE UNDERWEAR LG) MISC Place one at bedtime a day30 Each 5 Incontinence Supply Disposable (ATTENDS BRIEFS CLASSIC MEDIUM) MISC Use up to 4-5 times a day for incontinence 5 Each 5 Nebulizers (NEBULIZER COMPRESSOR) MISC Inhale via nebulizer. Use as directed. 1 Each 1 Baclofen 10 MG Oral Tablet (Lioresal) Take 0.5 Tablets by mouth in the morning and 0.5 Tablets before bedtime. (Patient not taking: Reported on 09/06/2022) 30 Tablet 1 No current facility-administered medications for this visit. ROS: Review of Systems: See HPI for pertinent positives. All other review of systems is negative. PHYSICAL EXAMINATION BP 128/56 (BP Site: Left Arm, BP Position: Sitting, BP Cuff Size: Large) | Pulse 88 | Resp 16 | Wt 69.1 kg (152 lb 6.4 oz) | SpO2 97% | BMI 27.87 kg/m | BSA 1.74 m Body mass index is 27.87 kg/m. General: no acute distress and stated age Head: normocephalic, no masses, lesions, tenderness or abnormalities Eyes: conjunctiva are pink and non-injected, sclera clear Neck: supple, no adenopathy, no bruits, normal jugular venous pulse, no hepatojugular reflux Chest: normal shape and normal respiratory effort Lungs: clear to auscultation and percussion Cardiac Exam: - irregular rate & rhythm, no murmurs gallops or rubs - normal S1, normal S2 Pulses: 2(+) throughout Abdomen: abdomen soft, non-tender, no abnormal masses and no hepatosplenomegaly Musculoskeletal: no gait disturbance, no joint inflammation, no deforming arthritis Extremities: no edema and no cyanosis Neuro: grossly normal exam Laboratory Data Review: REASON FOR STUDY: a fib CONCLUSIONS: Duration: 3 days, 7 hours Atrial Fibrillation occurred continuously (100% burden), ranging from 61- 177 bpm (avg of 92 bpm). Isolated VEs were occasional (2.2%, 9572), VE Couplets were rare (<1.0%, 170), and no VE Triplets were present. Ventricular Bigeminy was present. No symptoms reported. Impression: 1. Chronic atrial fibrillation 2. Chronic diastolic heart failure 3. Dementia Plan: The patient will continue her current medications. She is clinically stable and will return in 6 months for follow-up visit. This chart was completed in part utilizing [employer] Speech Voice Recognition Software. Grammatical errors, random word insertions, prounoun errors, and incomplete sentences are an occasional consequence of this system due to software limitations, ambient noise, and hardware issues. Any formal questions or concerns about the content, text, or information contained within the body of this dictation should be directly addressed to the provider for clarification. I spent a total of 30-39 minutes (exact time 32 mins) on the date of service in preparation, delivery, and documentation of the care provided to Sumi Eng excluding any time spent in the performance of separately billed services. Kiko Garcia DO Cardiology, [address] [address] 09/06/2022 documented in this encounter Nursing Notes * Marilyn King CMA - 09/06/2022 2:25 PM EDT Examination Room: 17 Name: Sumi Eng Date of : (1935). Reason for Visit: 3M f/u Interim Hospitalization(s): none Problems/Concerns: Swelling in ankles. Granddaughter reports patient doesn't like to keep legs elevated. Chest Pain/SOB: Granddaughter denies. [facility] Discussed: Not applicable [facility] [employer] is a way you can talk to your provider online through e-mail. Would you like to sign up? I can activate it for you? ALREADY ACTIVE Patient was instructed to not get up on the exam table until directed and assisted by their provider; patient is to remain seated in the chair/ wheelchair/ exam table for fall prevention and safety reasons. Patient is aware to have assistance to step down off exam table with personnel. Patient voiced full comprehension of instructions. documented in this encounter Plan of Treatment Upcoming Encounters Date Type Specialty Care Team Description 12/14/2022 Office Visit Family Medicine Ketan Jacob MD [address] [facility] [place] [address] 03/15/2023 Office Visit Cardiology Angelika Guillen PA-C [address] [place] [address] Health Maintenance Due Date Last Done Comments [...] Additional history exists CKD PHOS USE SMARTSET 91489 12/22/202212/08, 11/24/2020, 06/20/2018, Additional history exists CKD HGB USE SMARTSET 02940 03/19/202303/19, 03/19/2022, 12/22/2021, Additional history exists HbA1c 03/19/2023 03/19/2022, 07/09, 11/24/2020, Additional history exists Pneumococcal Vaccine: 65+ Years Completed 11/14/2015, 06/29/2010 VITAMIN D LEVEL ONCE IN A LIFETIME-USE SMARTSET# [id number] Completed 03/19/2022, 07/19/2014, 10/15/2013, Additional history exists [...] as of this encounter Visit Diagnoses Diagnosis Chronic diastolic heart failure (HCC)- Primary Chronic diastolic heart failure Permanent atrial fibrillation (HCC) Atrial fibrillation documented in this encounter Advance Directives Documents on File Type Date Recorded Patient Research Associate Policy 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 Code Status History Code Status Date Activated Date Inactivated Comments None 03/04/2004 12:53 PM 03/04/2004 1:53 PM Care Teams Maintenance Helper Utility Engineer Relationship Specialty Start Date End Date Ketan Jacob MD [address] [place] [address] PCP - General Internal Medicine 08/05/21 documented as of this encounter"
--- OUTSIDE RECORDS SUMMARY | 2022-12-31 22:16 | External Medical Summary | Summary of Care ---
Author Name Unknown Organization [facility] Address [address] [place] [address] Phone [phone] Care Team Providers Care Black Top Paver Operator Name Role Phone Ketan Jacob MD Primary Care Provider [phone] Reason for Visit * Reason Comments eRx-Medication Refill Encounter Details Date Type Department Care Team Description 11/23/2022 Refill [facility] [address] [place] [address] Ketan Jacob MD [address] [place] [address] Allergies Active Allergy Reactions Severity Noted Date Comments Aspirin Nausea/vomiting 08/19/2011 documented as of this encounter (statuses as of 11/24/2022) Medications Medication Sig Dispensed Refills Start Date [...] daily. 1 Inhaler 1 06/20/2018 Active Nystatin 074965 UNIT/GM External Powder (Nystop)Indications :Intertrigo Apply topically to affected area 3 times a day. Apply to groin 60 g 1 11/20/2020 Active Nystatin 767565 UNIT/GM External CreamIndications:In tertrigo Apply topically to [...] Tablet Delayed Release (Protonix)Indicatio ns:Gastroesophageal reflux disease TAKE 1 TABLET BY MOUTH EVERY DAY IN THE MORNING 90 Tablet 2 09/09/2022 Active Clopidogrel Bisulfate 75 MG Oral Tablet (pLAVix)Indications :History of CVA (cerebrovascular accident) TAKE 1 TABLET (75 MG) BY MOUTH IN THE MORNING. 90 Tablet 2 09/09/2022 Active Torsemide 20 MG Oral Tablet (Demadex) Take 2 Tablets by mouth daily AND 1 Tablet every afternoon. 270 Tablet 0 10/18/2022 Active Levothyroxine Sodium 25 MCG Oral Tablet (Levoxyl)Indication s:Hypothyroidism, unspecified type TAKE 1 TABLET BY MOUTH DAILY 30 MINUTES PRIOR TO BREAKFAST OR OTHER MEDS. 90 Tablet 3 11/01/2022 Active documented as of this encounter (statuses as of 11/24/2022) Active Problems Problem Noted Date Prediabetes 03/22/2022 [...] as of this encounter (statuses as of 11/24/2022) Resolved Problems Problem Noted Date Resolved Date [...] as of this encounter (statuses as of 11/24/2022) Immunizations Name Administration Dates Next Due Pneumococcal [...] encounter Miscellaneous Notes * Telephone Encounter - Willow Miles, [facility] - 11/24/2022 8:35 AM EDT Refused Prescriptions: Disp Refills Torsemide 20 MG Oral Tablet (Demadex) 270 Ta*0 Sig: TAKE 2 TABLETS BY MOUTH DAILY AND 1 TABLET EVERY AFTERNOON.Refused By: WILLOW MILES for Refusal: Too soon documented in this encounter Plan of Treatment Upcoming Encounters Date Type Specialty Care Team Description 12/14/2022 Office Visit Family Medicine Ketan Jacob MD [address] [place] [address] 03/15/2023 Office Visit Cardiology Angelika Guillen PA-C [address] [place] [address] Health Maintenance Due Date Last Done Comments COVID-19 Vaccine (#1) 04/06/1936 Zoster Vaccines (1 of 2) 10/07/1983 DTaP,Tdap,and Td Vaccines (1 - Tdap) 12/22/2013 12/21/2013, 12/21/2013 DXA Scan 11/23/2015 11/22/2013, 090 08/2011, 04/18/2009, Additional history exists Albumin/Creatinine Ratio 03/09/2020 03/09/2019 Depression Screening 01/03/2021 01/04/2020 *BISPHONATE OR OTHER ACCEPTABLE MEDICATION NEEDED FOR OSTEOPOROSIS (REFER TO SMARTSET #1146) 01/23/2021 Influenza Vaccine (FLU shot) (#1) 2022 11/12/2021, 11/20/2020, 11/21/2019, Additional history exists CKD PHOS USE SMARTSET 16980 12/22/202212/08, 11/24/2020, 06/20/2018, Additional history exists HbA1c 03/19/2023 03/19/2022, 07/09, 11/24/2020, Additional history exists CKD HGB USE SMARTSET 62327 09/28/202309/27, 09/27/2022, 03/19/2022, Additional history exists TSH 09/28/2023 09/27/2022, 11/08, 11/24/2020, Additional history exists Pneumococcal Vaccine: 65+ Years Completed 11/14/2015, 06/29/2010 Diabetic Foot Exam Discontinued 08/05/2021, 1 03/05/2019, 07/31/2018 VITAMIN D LEVEL ONCE IN A LIFETIME-USE SMARTSET# [id number] Completed 03/19/2022, 07/19/2014, 10/15/2013, Additional history exists [...] Documents on File Type Date Recorded Patient Cardiology Consultants 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 Code Status History Code Status Date Activated Date Inactivated Comments None 03/04/2004 12:53 PM 03/04/2004 1:53 PM Care Teams Black Top Paver Operator Relationship Specialty Start Date End Date Ketan Jacob MD [address] [place] [address] PCP - General Internal Medicine 08/05/21 documented as of this encounter
--- OUTSIDE RECORDS SUMMARY | 2022-12-31 22:16 | External Medical Summary ---
Author Name Unknown Address Unknown Organization K01:[facility] [place] [facility][note 3] [address] [place] [address] Laboratory Report Ordering Provider Test Date Status FRED CARUSO 09/27/2022 11:25:03 Final Observation Date Value Abnormality Reference (Units ) Status WBC, Total 09/27/2022 11:25:03 10.47 4.00-10.80 (K/uL) Final RBC 09/27/2022 11:25:03 4.16 3.85-5.15 (M/uL) Final Hemoglobin 09/27/2022 11:25:03 10.8 Below low normal 12.0-15.3 (g/dL) Final HCT 09/27/2022 11:25:03 36.0 36.0-45.2 (%) Final MCV 09/27/2022 11:25:03 86.5 81.5-97.5 (fL) Final MCH 09/27/2022 11:25:03 26.0 27.0-34.0 (pg) Final MCHC 09/27/2022 11:25:03 30.0 32.0-36.0 (g/dL) Final RDW 09/27/2022 11:25:03 16.8 11.5-15.5 (%) Final Platelets 09/27/2022 11:25:03 314 140-400 (K/uL) Final MPV 09/27/2022 11:25:03 10.7 6.6-11.1 (fL) Final Nucleated erythrocytes/100 leukocytes [Ratio] in Blood by Automated count 09/27/2022 11:25:03 0 <=0 (/100 WBCs) Final Performing Location [facility] [place] [address] [place] [address]
--- OUTSIDE RECORDS SUMMARY | 2022-12-31 22:16 | External Medical Summary | Summary of Care ---
Author Name Unknown Organization [facility] Address [address] [place] [address] Phone [phone] Care Team Providers Care Resident Services Coordinator Name Role Phone Ketan Jacob MD Primary Care Provider [phone] Reason for Referral * Precert (Within 10 days (routine)) - Authorized Specialty Diagnoses / Procedures Referred By Contac t Referred To Contact Cardiac Studies Diagnoses Edema, unspecified type Permanent atrial fibrillation (HCC) Hypertensive heart and kidney disease with chronic diastolic congestive heart failure and stage 3b chronic kidney disease (HCC) Chronic diastolic heart failure (HCC) Procedures ECHO, COMPLETE (2D), TRANS-THORACIC Ketan Jacob MD [address] [place] [address] Referral ID Status Reason Start Date Expiration Date V isits Requested Visits Authorized [id number] Authorized Precert 09/27/2022 999 999 Reason for Visit * Reason Comments Acute Ongoing edema in b/l legs. 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 Use as directed. 1 Each 1 8 Active Calcium Carb-Cholecalcife rol (OYSTERCAL-D) 500-400 MG-UNIT TABS TAKE 1 TABLET 3X A DAY, WITH MEALS, TO HELP WITH BONES 270 Tab 1 8 Active fluticasone (FLONASE) 50 MCG/ACT nasal sprayIndications: Sinus congestion Administer 2 Sprays into each nostril daily. 1 Inhaler 1 9 Active Nystatin 917916 UNIT/GM External Powder (Nystop)Indicatio ns:Intertrigo Apply topically to affected area 3 times a day. Apply to groin 60 g 1 1 Active Nystatin 638688 UNIT/GM External CreamIndications: Intertrigo Apply topically to [...] 1 Tablet every afternoon. 90 Tablet 0 3 Active Doxycycline Hyclate 100 MG Oral Capsule Take 1 Capsule by mouth in the morning and 1 Capsule before bedtime. Do all this for 10 days. Until gone.. 20 Capsule 0 3 10/04/19 23 Active Furosemide 40 MG Oral Tablet (Lasix)Indication s:Localized edema,Hypertensiv e heart and kidney disease with chronic diastolic congestive heart failure and stage 3 chronic kidney disease (HCC) Take 2 tablets in the morning. Take 2 tablets in the afternoon. 360 Tablet 3 3 09/28/19 23 Discontinued documented as of this encounter [...] without long-term current use of insulin 11/12/2021 02/1 Open wnd of scalp 11/12/2021 03/19/2022 Diabetes [...] Sign Reading Time Taken Comments Blood Pressure 118/74 09/27/2022 10:56 AM EDT Pulse 89 09/27/2022 10:56 AM EDT Temperature 36.4 C (97.5 F) 09/27/2022 1 0:56 AM EDT Respiratory Rate 18 09/27/2022 10:5 6 AM EDT Oxygen Saturation 94% 09/27/2022 10: 56 AM EDT Inhaled Oxygen Concentration - - Weight 68.4 kg (150 lb 12.5 oz) 023 10:56 AM EDT Height 157.5 cm (5' 2") 09/27/2022 10:5 6 AM EDT Body Mass Index 27.58 09/27/2022 10:56 AM EDT documented in this encounter Patient Instructions * Patient Instructions* Zuri J Lai, MALATHI - 09/27/2022 10:58 AM EDT Patient Instructions - Fall Prevention (This education is for all patients over 65 regardless of symptoms) Remember to take your current medications as prescribed. In order to prevent falls, you are encouraged to: Exercise Utilize assistive/adaptive devices Avoid multifocal lenses when walking Avoid hazards in home Maintain a regular toileting schedule Any questions please contact our office. Preventing Falls in the Home (This education is for all patients over 65 regardless of symptoms) As you get older, falls are more likely. Thats because your reaction time slows. Your muscles and joints may also get stiffer, making them less flexible. Illness, medications, and vision changes can also affect your balance. A fall could leave you unable to live on your own. To make your home safer, follow these tips: Floors Put nonskid pads under area rugs Remove throw rugs Replace worn floor coverings Tack carpets firmly to each step on carpeted stairs. Put nonskid strips on the edges of uncarpeted stairs Keep floors and stairs free of clutter and cords Arrange furniture so there are clear pathways Clean up any spills right away Bathrooms Install grab bars in the tub or shower Apply nonskid strips or put a nonskid rubber mat in the tub or shower Sit on a bath chair to bathe Use bathmats with nonskid backing Lighting Keep a flashlight in each room Put a nightlight along the pathway between the bedroom and the bathroom [employer] Patient Education Copyright 2008 - 2010 [employer] except where otherwise noted Preventing Falls: Exercises to Improve Balance, Flexibility, Strength, and Staying Power (This education is for all patients over 65 regardless of symptoms) Certain types of exercises may help make you less likely to fall. Try the ones below. Or do other exercises that your healthcare provider suggests. Depending on your health, you may need to start slowly. Dont let that stop you. Even small amounts of exercise can help you. Be sure to talk to yourhealthcare provider before starting any exercise program. Improve Balance Many types of exercise can help improve balance. Tommie chi and yoga are good examples. Heres another one to try. You can do it anytime and almost anywhere. Stand next to a counter or solid support. Push yourself up onto your tiptoes. Hold for 5 seconds. If you start to lose your balance, hold on to the counter. Rest and repeat 5 times. Work up to holding for 20 to 30 seconds, if you can. Increase Flexibility Being more flexible makes it easier for you to move around safely. Try exercises like the seated hamstring stretch. Sit in a chair and put one foot on a stool. Straighten your leg and reach with both hands down either side of your leg. Reach as far down your leg as you can. Hold for about 20 seconds. Go back to the starting position. Then repeat 5 times. Switch legs. Build Strength Resistance exercises help build strength. You can do them without equipment. Or you can use weights, elastic bands, or special machines. One such exercise is called the biceps curl. You can hold a 1 pound weight or even a can of soup. Do this exercise at least 3 times a week. Strive for everyday. Sit up straight in a chair. Keep your elbow close to your body and your wrist straight. Bend your arm, moving your hand up to your shoulder. Then slowly lower your arm. Repeat 5 times. Switch to the other arm. Build Your Staying Power Aerobic exercises make your heart and lungs stronger so you can keep moving longer. Walking and swimming are two of the best types of exercises you can do. Using a stationary bike is great, too. Find an aerobic exercise that you enjoy. Start slowly and build up. Even 5 minutes is helpful. Aimfor a goal of 30 minutes, at least 3 times a week. You dont have to do 30 minutes in one session. Break it up and walk a little throughout the day. More Helpful Tips Start easy. Slowly work up to doing more. Talk with your healthcare provider about the best exercises for you. Call senior centers or health clubs about exercise programs. If needed, have a family member watch you walk every so often to check your stability. Exercise with a friend. Choose an activity you both enjoy. Try exercises that you can do anytime, anywhere. Here are two examples. Have someone with you when you first try these: Practice walking by placing one foot right in front of the other. Stand up and sit down 10 times. Repeat this throughout the day. [employer] Patient Education Copyright 2008 [employer] except where otherwise noted. Preventing Falls: Moving Safely Using a Cane or Walker (This education is for all patients over 65 regardless of symptoms) Keep the cane away from your feet so you dont trip. A walking aid, such as a cane or walker, can help you stay more independent and avoid falls. Remember to keep your walking aid within easy reach when youre in a chair or in bed. And learn how to use it safely so you dont injure yourself. Using a Cane If you have a stronger side, hold the cane on that side. Get your balance. Move the cane and your weaker leg forward. Support your weight on both the cane and your weaker side. Step with your stronger leg. Start again from step 1. If youre using a folding walker, be sure you know how to lock it open. Check that its locked open before each use. Using a Walker Roll the walker (or lift it, if youre using one without wheels) forward about 12 inches. Step forward with your weaker leg first. Use the walker to help keep your balance. Bring your other foot forward to the center of the walker. Start again from step 1. Helpful Tips Check with your healthcare provider about the right walking aid to use. Ask about a walker with a seat attached. Check the tips of your cane or walker to make sure they have nonskid covers. Move slowly from room to room. Dont paz. Sit down to get dressed. Use a long pack or backpack to keep your hands free. Get help for jobs that mean climbing, even on a stepstool. [employer] Patient Education Copyright 2008 [employer] except where otherwise noted. Urinary Incontinence Plan of Care Documentation: (This education is for all patients over 65 regardless of symptoms) Current medications reconciled. Patient encouraged to: Practice kegal exercises Provide education materials Use the restroom every 2 hours throughout the day Limit caffeine, alcohol, spicy foods and acidic foods Keep a bladder diary Limit fluid intake 3-4 hours before bed Lose weight Prevent constipation Take fluid pills at a time when you can get to the bathroom quickly Control sugar better if diabetic Limit fluid intake to 60 oz. per day Wear support stockings (TEDs)if you have edema Zuri Shad Hoyt LPN 09/27/2022 Kegel Exercises Kegel exercises dont require special clothing or equipment. Theyre easy to learn and simple to do. And if you do them right, no one can tell youre doing them, so they can be done almost anywhere. Your doctor, nurse, or physical therapist can answer any questions you have and help you get started. A Weak Pelvic Floor The pelvic floor muscles may weaken due to aging, and vaginal childbirth, injury, surgery, chronic cough, or lack of exercise. If the pelvic floor is weak, your bladder and other pelvic organs may sag out of place. The urethra may also open too easily and allow urine to leak out. Kegel exercises can help you strengthen your pelvic floor muscles so they can better support the pelvic organs and control urine flow. How Kegel Exercises Are Done Try each of the Kegel exercises described below. When youre doing them, try not to move your leg, buttock, or stomach muscles. While youre urinating, try to stop the flow of urine. Start and stop it as often as you can. Contract as if you were stopping your urine stream, but do it when youre not urinating. Tighten your rectum as if trying not to pass gas. Contract your anus, but dont move your buttocks. Helpful Hints Do your Kegels as often as you can. The more you do them, the faster youll feel the results. Pick an activity you do often as a reminder. For instance, do your Kegels every time you sit down. Tighten your pelvic floor before you sneeze, get up from a chair, cough, laugh, or lift. This protects your pelvic floor from injury and can help prevent urine leakage. Try to hold each Kegel for a slow count to five. You probably wont be able to hold them for thatlong at first, but keep practicing. It will get easier as your pelvic floor gets stronger. Eventually, special weights that you place in your vagina may be recommended to help make your Kegels even more effective. [employer] Patient Education Copyright 2009 - 2010 [employer] except where otherwise noted. Here are some helpful tips for your urinary incontinence: (This education is for all patients over 65 regardless of symptoms) Practice Kegel exercises Use the restroom every 2 hours throughout the day Limit caffeine, alcohol, spicy foods, and acidic foods Keep a bladder diary Limit fluid intake 3-4 hours before bed Lose weight Prevent constipation Take fluid pills at a time when can get to the bathroom quickly Control sugar better if diabetic Limit fluid intake to 60 oz. per day Any questions, please feel free to contact our office. documented in this encounter Progress Notes * Ketan Jacob MD - 09/27/2022 11:10 AM EDT Subjective Sumi Eng is a 86 year old female. Chief Complaint Patient presents with Acute Ongoing edema in b/l legs. HPI: Here for worse B/L legs swelling redness since last week Family contacted me last week Adjusted medication - furosemide 40 bid - changed to torsemide 40 + 20 And also started doxycycline due to severe redness, some small open sores Since Tue, urination more with torsemide, Legs swelling seems better Still mild erythema,more on rt leg but improving Known CHF, CAD, last year EF 40 %, a fib on eliquis, hx of thrombus, occlusion of artery , CVA Taking all her meds and f/u with cardio Will f/u 2D echo and BMP Dementia - seems progressing, Depression mild preDM, hba1c 6.1 Hypothyroidism, taking med, will f/u level PMH: Patient Active Problem List Diagnosis Code Osteoarthrosis M19.90 Hypothyroidism E03.9 Dyslipidemia, goal LDL below 130 E78.5 History of CVA (cerebrovascular accident) Z86.73 Bilateral lower extremity edema R60.0 Chronic pain of left knee M25.562, G89.29 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 Aortic atherosclerosis (HCC) I70.0 Permanent atrial fibrillation (HCC) I48.21 Cerebrovascular disease I67.9 Hypertensive heart and kidney disease with chronic diastolic congestive heart failure and stage 3b chronic kidney disease (HCC) I13.0, I50.32, N18.32 Chronic diastolic heart failure (HCC) I50.32 Chronic kidney disease, stage 3b (HCC) N18.32 Gastro-esophageal reflux disease without esophagitis K21.9 Senile osteoporosis M81.0 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 Incontinence Supply Disposable (ATTENDS BRIEFS CLASSIC MEDIUM) MISC Use up to 4- 5 times a day for incontinence 5 Each 5 Nebulizers (NEBULIZER COMPRESSOR) MISC Inhale via nebulizer. Use as directed. 1 Each 1 Calcium Carb-Cholecalciferol (OYSTERCAL-D) 500-400 MG-UNIT TABS TAKE 1 TABLET 3X A DAY, WITH MEALS,TO HELP WITH BONES 270 Tab 1 fluticasone (FLONASE) 50 MCG/ACT nasal spray Administer 2 Sprays into each nostril daily. 1 Inhaler1 Nystatin 045735 UNIT/GM External Powder (Nystop) Apply topically to affected area 3 times a day. Apply to groin 60 g 1 Nystatin 095401 UNIT/GM External Cream Apply topically to affected area 2 times a day. To affacted area for two weeks. 30 g 1 Triamcinolone Acetonide 0.1 % External Ointment (Aristocort) Apply to itchy/rashy areas on legs until resolved, then when flaring (see printed regimen on checkout sheet) 454 g 0 Levothyroxine Sodium 25 MCG Oral Tablet (Levoxyl) [...] 1 TABLET ONCE DAILY FOR CHOLESTEROL 90 Tablet3 Metoprolol Tartrate 100 MG Oral Tablet (Lopressor) Take 1 Tablet by mouth in the morning and 1 Tablet before bedtime. 180 Tablet 3 Vitamin B-12 1000 MCG Oral Tablet (Cyanocobalamin) Take 1 Tablet by mouth in the morning. 100 Tablet 3 Spironolactone 25 MG Oral Tablet (Aldactone) Take 0.5 Tablets by mouth in the morning. 90 Tablet 3 Baclofen 10 MG Oral Tablet (Lioresal) Take 0.5 Tablets by mouth in the morning and 0.5 Tablets before bedtime. 90 Tablet 1 Pantoprazole Sodium 40 MG Oral Tablet Delayed Release (Protonix) TAKE 1 TABLET BY MOUTH EVERY DAY IN THE MORNING 90 Tablet 2 Clopidogrel Bisulfate 75 MG Oral Tablet (pLAVix) TAKE 1 TABLET (75 MG) BY MOUTH IN THE MORNING. 90 Tablet 2 Torsemide 20 MG Oral Tablet (Demadex) Take 2 Tablets by mouth daily AND 1 Tablet every afternoon. 90 Tablet 0 Doxycycline Hyclate 100 MG Oral Capsule Take 1 Capsule by mouth in the morning and 1 Capsule beforebedtime. Do all this for 10 days. Until gone.. 20 Capsule 0 No current facility-administered medications for this visit. 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 Osteoarthrosis Osteoarthritis Osteoporosis Osteoporosis Past Surgical History: Procedure Laterality Date AORTOGRAM ABDOMINAL-TECH ONLY 07/08/2021 IMAGING SUPERVISION & INTERPRETATION ABDOMINAL AO performed by Silver Traore MD at [facility] IR ARTERIOGRAM EXTREMITY UNILATERAL Right 07/08/2021 IMAGING SUPERVISION & INTERPRETATION EXTREMITY UNILATERAL performed by Silver Traore MD at [facility] THROMBECTOMY, PERC PRIMARY ARTERIAL MECHANICAL, ADD-ON Right 07/08/2021 MECHANICAL THROMBECTOMY, ARTERIAL OR ARTERIAL BYPASS GRAFT, ADDITIONAL VESSEL performed by Silver Traore MD at [facility] THROMBECTOMY, PERC PRIMARY ARTERIAL MECHANICAL, INIT Right 07/08/2021 MECHANICAL THROMBECTOMY, ARTERIAL OR ARTERIAL BYPASS GRAFT, INITIAL VESSEL performed by Silver Traore MD at OR [facility] Review of patient's allergies indicates: Allergen Reactions Aspirin Nausea/vomiting Family History Problem Relation Age of Onset Heart Disorder Other Hypertension Sister Hypertension Son Stroke Other Thyroid Disorder Other Family Status Relation Status Other (Not Specified) Sis (Not Specified) Son (Not Specified) Other (Not Specified) Other (Not Specified) Social History Socioeconomic History Marital status: Spouse name: Not on file Number of children: Not on file Years of education: Not on file Highest education level: Not on file Occupational History Not on file Tobacco Use Smoking status: Never Smokeless tobacco: Never Vaping Use Vaping Use: Never used Substance and Sexual Activity Alcohol use: No Drug use: No Sexual activity: Never Other Topics Concern Not on file Social History Narrative Not on file Social Determinants of Health Financial Resource Strain: Not on file Food Insecurity: Not on file Transportation Needs: Not on file Physical Activity: Not on file Stress: Not on file Social Connections: Not on file Intimate Partner Violence: Not on file Housing Stability: Not on file Review of Systems Constitutional: Positive for activity change (declining) and fatigue. Negative for appetite change,chills, diaphoresis, fever and unexpected weight change. HENT: Positive for hearing loss. Eyes: Positive for visual disturbance. Respiratory: Negative for cough, chest tightness, shortness of breath and wheezing. Cardiovascular: Positive for leg swelling. Negative for chest pain and palpitations. Gastrointestinal: Negative for abdominal distention and abdominal pain. Endocrine: Negative. Musculoskeletal: Positive for arthralgias and gait problem. Neurological: Positive for weakness (general , legs) and numbness. Negative for headaches. Psychiatric/Behavioral: Positive for confusion, dysphoric mood and sleep disturbance. Negative for agitation and behavioral problems. The patient is not nervous/anxious. Objective BP 118/74 | Pulse 89 | Temp 36.4 C (97.5 F) (Temporal Artery) | Resp 18 | Ht 1.575 m (5' 2") | Wt 68.4 kg (150 lb 12.5 oz) | SpO2 94% | BMI 27.58 kg/m | BSA 1.73 m Physical Exam Constitutional: General: She is not in acute distress. Appearance: Normal appearance. She is not ill-appearing, toxic-appearing or diaphoretic. HENT: Head: Normocephalic and atraumatic. Nose: Nose normal. Eyes: Extraocular Movements: Extraocular movements intact. Conjunctiva/sclera: Conjunctivae normal. Pupils: Pupils are equal, round, and reactive to light. Cardiovascular: Rate and Rhythm: Normal rate. Rhythm irregular. Pulses: Normal pulses. Heart sounds: Murmur heard. Pulmonary: Effort: Pulmonary effort is normal. No respiratory distress. Breath sounds: No stridor. Rales (B/L basilar) present. No wheezing or rhonchi. Chest: Chest wall: No tenderness. Musculoskeletal: Right lower leg: Edema (2+ mild erythema) present. Left lower leg: Edema (1+) present. Skin: Findings: Erythema present. Neurological: General: No focal deficit present. Mental Status: She is disoriented. Cranial Nerves: No cranial nerve deficit. Motor: Weakness (general ,legs) present. Gait: Gait abnormal. Psychiatric: Behavior: Behavior normal. Comments: Dementia ASSESSMENT/PLAN: Edema, unspecified type (Primary) - BASIC METABOLIC PANEL; Future; Expected date: 09/27/2022 - ECHO, COMPLETE (2D), TRANS-THORACIC; Future; Expected date: 09/27/2022 - CBC WITH WBC DIFFERENTIAL; Future; Expected date: 09/27/2022 Risk and functional assessment Permanent atrial fibrillation (HCC) - ECHO, COMPLETE (2D), TRANS-THORACIC; Future; Expected date: 09/27/2022 - CBC WITH WBC DIFFERENTIAL; Future; Expected date: 09/27/2022 Hypertensive heart and kidney disease with chronic diastolic congestive heart failure and stage 3b chronic kidney disease (HCC) - ECHO, COMPLETE (2D), TRANS-THORACIC; Future; Expected date: 09/27/2022 - CBC WITH WBC DIFFERENTIAL; Future; Expected date: 09/27/2022 Chronic diastolic heart failure (HCC) - ECHO, COMPLETE (2D), TRANS-THORACIC; Future; Expected date: 09/27/2022 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) Aortic atherosclerosis (HCC) Chronic kidney disease, stage 3b (HCC) Mild dementia without behavioral disturbance, psychotic disturbance, mood disturbance, or anxiety, unspecified dementia type (HCC) 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 Patient encouraged to: Practice kegal exercises Provide education materials Use the restroom every 2 hours throughout the day Limit caffeine, alcohol, spicy foods and acidic foods Keep a bladder diary Limit fluid intake 3-4 hours before bed Lose weight Prevent constipation Take fluid pills at a time when you can get to the bathroom quickly Control sugar better if diabetic Limit fluid intake to 60 oz. per day Wear support stockings (TEDs)if you have edema Zuri Hoyt LPN 09/27/2022 documented in this encounter Nursing Notes * Zuri Hoyt LPN - 09/27/2022 10:54 AM EDT Chief Complaint Patient presents with Acute Ongoing edema in b/l legs. Patient has been verbally educated on the need or importance of Immunizations: shingrix and TDaP and Surveys: Social Needs documented in this encounter Plan of Treatment Upcoming Encounters Date Type Specialty Care Team Description 11/19/2022 Cardiac Studies Cardiac Studies 12/14/2022 Office Visit Family Medicine Ketan Jacob MD [address] [place] [address] 03/15/2023 Office Visit Cardiology Angelika Guillen PA-C [address] [place] [id number] Pending Results Name Type Priority Associated Diagnoses [...] (HCC) Acquired hypothyroidism 09/27/2022 11:25 AM EDT Scheduled Orders Name Type Priority Associated Diagnoses Orde r Schedule BASIC METABOLIC PANEL Lab Routine Edema, unspecified type Expected: 09/27/2022 (Approximate), Expires: 09/27/2023 ECHO, COMPLETE (2D), TRANS-THORACIC Echocardiology Routine Edema, unspecified type Permanent atrial fibrillation (HCC) Hypertensive heart and kidney disease with chronic diastolic congestive heart failure and stage 3b chronic kidney disease (HCC) Chronic diastolic heart failure (HCC) Expected: 09/27/2022, Expires: 10/28/2024 TSH WITH FREE T4 IF INDICATED Lab Routine Acquired hypothyroidism Expected: 09/27/2022 (Approximate), Expires: 09/27/2023 CBC WITH WBC DIFFERENTIAL Lab Routine Edema, unspecified type Permanent atrial fibrillation (HCC) Hypertensive heart and kidney disease with chronic diastolic congestive heart failure and stage 3b chronic kidney disease (HCC) Acquired hypothyroidism Expected: 09/27/2022 (Approximate), Expires: 09/28/2023 Health Maintenance Due Date Last Done Comments COVID-19 Vaccine (#1) 04/06/1936 Zoster Vaccines (1 of 2) 10/07/1983 DTaP,Tdap,and Td Vaccines (1 - Tdap) 12/22/2013 12/21/2013, 12/21/2013 DXA Scan 11/23/2015 11/22/2013, 0908/2011, 04/18/2009, Additional history exists Albumin/Creatinine Ratio 03/09/2020 03/09/2019 Depression Screening, Annual for Pts 12 and Over 01/03/2021 01/04/2020 *BISPHONATE OR OTHER ACCEPTABLE MEDICATION NEEDED FOR OSTEOPOROSIS (REFER TO SMARTSET #1146) 01/23/2021 Influenza Vaccine (FLU shot) (#1) 2022 11/12/2021, 11/20/2020, 11/21/2019, Additional history exists TSH 12/04/2022 12/04/2021, 11/07, 08/06/2019, Additional history exists CKD PHOS USE SMARTSET 96455 12/22/202212/08, 11/24/2020, 06/20/2018, Additional history exists CKD HGB USE SMARTSET 53805 03/19/202303/19, 03/19/2022, 12/22/2021, Additional history exists HbA1c 03/19/2023 03/19/2022, 07/09, 11/24/2020, Additional history exists Pneumococcal Vaccine: 65+ Years Completed 11/14/2015, 06/29/2010 VITAMIN D LEVEL ONCE IN A LIFETIME-USE SMARTSET# 03275 Completed 03/19/2022, 07/19/2014, 10/15/2013, Additional history exists [...] this encounter Visit Diagnoses Diagnosis Edema, unspecified type- Primary Risk and functional assessment Screening for unspecified condition Permanent atrial fibrillation (HCC) Atrial fibrillation Hypertensive heart and kidney disease with chronic diastolic congestive heart failure and stage 3b chronic kidney disease (HCC) Chronic diastolic heart failure (HCC) Chronic diastolic heart failure 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 Aortic atherosclerosis (HCC) Atherosclerosis of aorta Chronic kidney disease, stage 3b (HCC) Mild dementia without behavioral disturbance, psychotic disturbance, mood disturbance, or anxiety, unspecified dementia type (HCC) 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 Code Status History Code Status Date Activated Date Inactivated Comments None 03/04/2004 12:53 PM 03/04/2004 1:53 PM Care Teams Resident Services Coordinator Relationship Specialty Start Date End Date Ketan Jacob MD [address] [place] [address] PCP - General Internal Medicine 08/05/21 documented as of this encounter
--- OUTSIDE RECORDS SUMMARY | 2022-12-31 22:16 | External Medical Summary ---
Author Name Unknown Address Unknown Organization K01:[facility] - [address] [place] [address] Laboratory Report Ordering Provider Test Date Status [id number] 09/27/2022 11:25:03 Final Observation Date Value Abnormality Reference (Units ) Status T4, Free 09/27/2022 11:25:03 1.3 0.9-1.7 (n g/dL) Final Performing Location [facility] - [address] [place] [address]
--- OUTSIDE RECORDS SUMMARY | 2022-12-31 22:16 | External Medical Summary ---
Author Name Unknown Address Unknown Organization [id number]:[facility] [place] [address] [facility] [address] Laboratory Report Ordering Provider Test Date Status FRED CARUSO 09/27/2022 11:25:03 Final Observation Date Value Abnormality Reference (Units ) Status TSH 09/27/2022 11:25:03 4.90 Above high normal 0. 27-4.20 (uIU/mL) Final Performing Location [facility] [place] [address] [facility] [address]
--- OUTSIDE RECORDS SUMMARY | 2022-12-31 22:16 | External Medical Summary | Summary of Care ---
Author Name Unknown Organization [facility] Address [address] [place] [address] Phone [phone] Care Team Providers Care Dental Prosthetist Name Role Phone Ketan Jacob MD Primary Care Provider [phone] Reason for Visit * Reason Onset Date Comments Advice 08/18/2022 Encounter Details Date Type Department Care Team Description 08/18/2022 Telephone [facility] [address] [place] [address] Ketan Jacob MD [address] [place] [address] Advice Allergies Active Allergy Reactions Severity Noted Date Comments Aspirin Nausea/vomiting 08/19/2011 documented as of this encounter (statuses as of 08/19/2022) Medications Medication Sig Dispensed Refills Start Date [...] daily. 1 Inhaler 1 06/20/2018 Active Nystatin 109905 UNIT/GM External Powder (Nystop)Indications :Intertrigo Apply topically to affected area 3 times a day. Apply to groin 60 g 1 11/20/2020 Active Nystatin 968406 UNIT/GM External CreamIndications:In tertrigo Apply topically to [...] before bedtime. 30 Tablet 1 08/13/2022 Active documented as of this encounter (statuses as of 08/19/2022) Active Problems Problem Noted Date Prediabetes 03/22/2022 [...] as of this encounter (statuses as of 08/19/2022) Resolved Problems Problem Noted Date Resolved Date [...] as of this encounter (statuses as of 08/19/2022) Immunizations Name Administration Dates Next Due Pneumococcal [...] encounter Miscellaneous Notes * Telephone Encounter - Ketan Jacob MD - 08/19/2022 12:08 PM EDT Still pending * Telephone Encounter - CRISTEL Bullock - 08/18/2022 2:32 PM EDT Who is Requesting Test Results: patient Primary Care Provider : Ketan Jacob MD Tests Results Requested : back xray Date of Test : 08-17-2022 Location of Test: [facility] Ordering Provider: PCP Callback Number: [phone] Patient has been made aware that the turnaround time for test results are typically as follows: Laboratory results = within 2 days Urine Cultures = within 2-3 days depending on growth within the culture Pathology results (biopsy results/PAP) = 1-2 weeks Radiology results = within 1 week Cologuard results = within 2 weeks from the shipment date COVID testing = results are on average 7 days documented in this encounter Plan of Treatment Upcoming Encounters Date Type Specialty Care Team Description 08/23/2022 Office Visit Cardiology Angelika Guillen PA-[facility] [address] [facility] [place] [address] 12/14/2022 Office Visit Family Medicine Ketan Jacob MD [address] [place] [address] Health Maintenance Due Date Last Done Comments [...] Additional history exists CKD PHOS USE SMARTSET 74942 12/22/202212/08, 11/24/2020, 06/20/2018, Additional history exists CKD HGB USE SMARTSET 44658 03/19/202303/19, 03/19/2022, 12/22/2021, Additional history exists HbA1c 03/19/2023 03/19/2022, 07/09, 11/24/2020, Additional history exists Pneumococcal Vaccine: 65+ Years Completed 11/14/2015, 06/29/2010 VITAMIN D LEVEL ONCE IN A LIFETIME-USE SMARTSET# 25009 Completed 03/19/2022, 07/19/2014, 10/15/2013, Additional history exists [...] Documents on File Type Date Recorded 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 Code Status History Code Status Date Activated Date Inactivated Comments None 03/04/2004 12:53 PM 03/04/2004 1:53 PM Care Teams Dental Prosthetist Relationship Specialty Start Date End Date Ketan Jacob MD [address] [place], [place] [id number] PCP - General Internal Medicine 08/05/21 documented as of this encounter
--- OUTSIDE RECORDS SUMMARY | 2022-12-31 22:16 | External Medical Summary ---
Author Name Unknown Address Unknown Organization K01:[facility] [place] - [address] [facility] [place] [address] Laboratory Report Ordering Provider Test Date Status FRED CARUSO 09/27/2022 11:25:03 Final Observation Date Value Abnormality Reference (Units ) Status SYNC LEUKOCYTES IN BLOOD BY AUTOMATED COUNT 09/27/2022 11:25:03 10.47 4.00-10.80 (K/uL) Final Segs 09/27/2022 11:25:03 72.6 40.0-75.0 (%) Final Lymphs % 09/27/2022 11:25:03 12.8 Below low normal 18.0-42.0 (%) Final Monos 09/27/2022 11:25:03 10.6 1.0-11.0 (%) Final Eosinophils 09/27/2022 11:25:03 2.8 0.0-6.0 (%) Final Basos 09/27/2022 11:25:03 0.7 0.0-2.0 (%) Final Immature Granulocyte, Percent 09/27/2022 11:25:03 0.5 0.0-2.0 (%) Final Absolute Segs 09/27/2022 11:25:03 7.61 1.80-7.70 (K/uL) Final Lymphs, absolute 09/27/2022 11:25:03 1.34 1.00-4.80 (K/ul) Final Monos, Abs 09/27/2022 11:25:03 1.11 Above high normal 0.00-1.10 (K/uL) Final Eos, Abs 09/27/2022 11:25:03 0.29 0.00-0.70 (K/uL) Final Basos, Abs 09/27/2022 11:25:03 0.07 0.00-0.20 (K/uL) Final Immature Granulocytes, Number 09/27/2022 11:25:03 0.05 0.00-0.20 (K/uL) Final Performing Location [facility] [place] - [address] [facility] [address]
--- OUTSIDE RECORDS SUMMARY | 2022-12-31 22:16 | External Medical Summary | Summary of Care ---
Author Name Unknown Organization [facility] Address [address] [place] [address] Phone [phone] Care Team Providers Care Director Of Social Media Marketing Name Role Phone Ketan Jacob MD Primary Care Provider [phone] Encounter Details Date Type Department Care Team Description 09/07/2022 Refill [facility] [address] [place] [address] Ketan Jacob MD [address] [place] [address] Allergies Active Allergy Reactions Severity [...] Each 5 12/01/2016 Active Nebulizers (NEBULIZER COMPRESSOR) MISCIndications:B ronchitis, complicated Inhale via nebulizer. Use as directed. 1 Each 1 05/20/2017 Active Calcium Carb-Cholecalcife rol (OYSTERCAL-D) 500-400 MG-UNIT TABS TAKE 1 TABLET 3X A DAY, WITH MEALS, TO HELP WITH BONES 270 Tab 1 11/25/2017 Active fluticasone (FLONASE) 50 MCG/ACT nasal sprayIndications: Sinus congestion Administer 2 Sprays into each nostril daily. 1 Inhaler 1 06/20/2018 Active Nystatin 881522 UNIT/GM External Powder (Nystop)Indicatio ns:Intertrigo Apply topically to affected area 3 times a day. Apply to groin 60 g 1 11/20/2020 Active Nystatin 587422 UNIT/GM External CreamIndications: Intertrigo Apply topically to [...] 05/06/2022 Active Eliquis 5 MG Oral Tablet (Apixaban)Indicat [...] 07/01/2022 Active Furosemide 40 MG Oral Tablet (Lasix)Indication [...] before bedtime. 90 Tablet 1 09/09/2022 Active Baclofen 10 MG Oral Tablet (Lioresal) Take 0.5 Tablets by mouth in the morning and 0.5 Tablets before bedtime. 30 Tablet 1 08/13/2022 3 Discontinue d(Refill) documented as of this encounter (statuses as [...] Telephone Encounter - Ketan Jacob MD - 09/09/2022 9:34 AM EDTSigned Prescriptions: Disp Refills Baclofen 10 MG Oral Tablet (Lioresal) 90 Tab*1 Sig: Take 0.5 Tablets by mouth in the morning and 0.5 Tablets before bedtime.Authorizing Provider: KETAN JACOB-------- documented in this encounter Plan of Treatment Upcoming Encounters Date Type Specialty Care Team Description 12/14/2022 Office Visit Family Medicine Ketan Jacob MD [address] [place] [address] 03/15/2023 Office Visit Cardiology Angelika Guillen PA-C [address] [place] [address] Health Maintenance Due Date Last Done Comments [...] Additional history exists CKD PHOS USE SMARTSET 20144 12/22/202212/08, 11/24/2020, 06/20/2018, Additional history exists CKD HGB USE SMARTSET 66809 03/19/202303/19, 03/19/2022, 12/22/2021, Additional history exists HbA1c 03/19/2023 03/19/2022, 07/09, 11/24/2020, Additional history exists Pneumococcal Vaccine: 65+ Years Completed 11/14/2015, 06/29/2010 VITAMIN D LEVEL ONCE IN A LIFETIME-USE SMARTSET# 20762 Completed 03/19/2022, 07/19/2014, 10/15/2013, Additional history exists [...] Documents on File Type Date 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 Code Status History Code Status Date Activated Date Inactivated Comments None 03/04/2004 12:53 PM 03/04/2004 1:53 PM Care Teams Director Of Social Media Marketing Relationship Specialty Start Date End Date Ketan Jacob MD [address] [place] [address] PCP - General Internal Medicine 08/05/21 documented as of this encounter
--- OUTSIDE RECORDS SUMMARY | 2022-12-31 22:16 | External Medical Summary | Summary of Care ---
Author Name Unknown Organization [facility] Address [address] [place] [address] Phone [phone] Care Team Providers Care Nutter Up Name Role Phone Ketan Jacob MD Primary Care Provider [phone] Encounter Details Date Type Department Care Team Description 10/18/[address] [facility] [address] [place] [address] Ketan Jacob MD [address] [place] [address] Allergies Active Allergy Reactions Severity Noted Date Comments Aspirin Nausea/vomiting 08/19/2011 documented as of this encounter (statuses as of 10/18/2022) Medications Medication Sig Dispensed Refills Start Date [...] daily. 1 Inhaler 1 06/20/2018 Active Nystatin 602298 UNIT/GM External Powder (Nystop)Indicatio ns:Intertrigo Apply topically to affected area 3 times a day. Apply to groin 60 g 1 11/20/2020 Active Nystatin 682620 UNIT/GM External CreamIndications: Intertrigo Apply topically to [...] every afternoon. 270 Tablet 0 10/18/2022 Active Torsemide 20 MG Oral Tablet (Demadex) Take 2 Tablets by mouth daily AND 1 Tablet every afternoon. 90 Tablet 0 09/23/2022 3 Discontinue d(Refill) documented as of this encounter (statuses as of 10/18/2022) Active Problems Problem Noted Date Prediabetes 03/22/2022 [...] as of this encounter (statuses as of 10/18/2022) Resolved Problems Problem Noted Date Resolved Date [...] as of this encounter (statuses as of 10/18/2022) Immunizations Name Administration Dates Next Due Pneumococcal [...] Telephone Encounter - Ketan Jacob MD - 10/18/2022 1:44 PM EDTSigned Prescriptions: Disp Refills Torsemide 20 MG Oral Tablet (Demadex) 270 Ta*0 Sig: Take 2 Tablets by mouth daily AND 1 Tablet every afternoon.Authorizing Provider: KETAN JACOB documented in this encounter Plan of Treatment Upcoming Encounters Date Type Specialty Care Team Description 11/19/2022 Cardiac Studies Cardiac Studies 12/14/2022 [facility] Visit [facility] [address] [facility] [id number] 03/15/2023 Office Visit Cardiology Angelika Guillen PA-C [address] [place] [address] Health Maintenance Due Date Last Done Comments [...] Additional history exists CKD PHOS USE SMARTSET 84425 12/22/202212/08, 11/24/2020, 06/20/2018, Additional history exists HbA1c 03/19/2023 03/19/2022, 07/09, 11/24/2020, Additional history exists CKD HGB USE SMARTSET 04099 09/28/202309/27, 09/27/2022, 03/19/2022, Additional history exists TSH 09/28/2023 09/27/2022, 11/08, 11/24/2020, Additional history exists Pneumococcal Vaccine: 65+ Years Completed 11/14/2015, 06/29/2010 Diabetic Foot Exam Discontinued 08/05/2021, 1 03/05/2019, 07/31/2018 VITAMIN D LEVEL ONCE IN A LIFETIME-USE SMARTSET# 30104 Completed 03/19/2022, 07/19/2014, 10/15/2013, Additional history exists [...] Documents on File Type Date 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 Code Status History Code Status Date Activated Date Inactivated Comments None 03/04/2004 12:53 PM 03/04/2004 1:53 PM Care Teams Nutter Up Relationship Specialty Start Date End Date Ketan Jacob MD [address] [place], [place] [phone] PCP - General Internal Medicine 08/05/21 documented as of this encounter
--- OUTSIDE RECORDS SUMMARY | 2022-12-31 22:16 | External Medical Summary ---
Author Name Unknown Address Unknown Organization K01:[facility] [place] - [address] [place] [address] Laboratory Report Ordering Provider Test Date Status FRED CARUSO 09/27/2022 11:25:03 Final Observation Date Value Abnormality Reference (Units ) Status BUN 09/27/2022 11:25:03 15 6-20 (mg/dL) Final Creatinine 09/27/2022 11:25:03 1.3 Above high normal 0.5-1.0 (mg/dL) Final Glomerular filtration rate/1.73 sq M.predicted [Volume Rate/Area] in Serum, Plasma or Blood by Creatinine-based formula (CKD-EPI) 09/27/2022 11:25:03 41 Below low normal >=60 (mL/min) Final eGFR is calculated based on the CKD-EPI 2020 equation SODIUM 09/27/2022 11:25:03 139 135-146 (m mol/L) Final Potassium 09/27/2022 11:25:03 4.2 3.5-5.1 (m mol/L) Final Cl 09/27/2022 11:25:03 96 Below low normal 98- 107 (mmol/L) Final CO2 09/27/2022 11:25:03 33 Above high normal 22 -32 (mmol/L) Final Anion gap 09/27/2022 11:25:03 10 7-15 (mmol /L) Final Glucose 09/27/2022 11:25:03 92 70-120 (mg /dL) Final Calcium 09/27/2022 11:25:03 8.2 Below low normal 8.4 -10.2 (mg/dL) Final Performing Location [facility]ORY [facility] [place] - [address] [place] [address]
--- OUTSIDE RECORDS SUMMARY | 2022-12-31 22:17 | External Medical Summary | Summary of Care ---
Author Name Unknown Organization [facility] Address [address] [place] [address] Phone [phone] Care Team Providers Care Steam Shovel Operator Name Role Phone Ketan Jacob MD Primary Care Provider [phone] Reason for Visit * Reason Comments Follow Up Pt here with family, c/o back pain. 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 1 Inhaler 1 06/20/2018 Active Nystatin 502794 UNIT/GM External Powder (Nystop)Indications :Intertrigo Apply topically to affected area 3 times a day. Apply to groin 60 g 1 11/20/2020 Active Nystatin 851883 UNIT/GM External CreamIndications:In tertrigo Apply topically to [...] as of this encounter (statuses as of 08/13/2022) Active Problems Problem Noted Date Prediabetes 03/22/2022 [...] as of this encounter (statuses as of 08/13/2022) Resolved Problems Problem Noted Date Resolved Date [...] as of this encounter (statuses as of 08/13/2022) Immunizations Name Administration Dates Next Due Pneumococcal [...] Sign Reading Time Taken Comments Blood Pressure 122/72 08/13/2022 1:41 PM EDT Pulse 96 08/13/2022 1:41 PM EDT Temperature 36.9 C (98.4 F) 08/13/2022 1:41 PM ED T Respiratory Rate 18 08/13/2022 1:41 PM EDT Oxygen Saturation - - Inhaled Oxygen Concentration - - Weight 68.5 kg (151 lb) 08/13/2022 1:41 PM EDT Height 157.5 cm (5' 2") 08/13/2022 1:41 PM EDT Body Mass Index 27.62 08/13/2022 1:41 PM EDT documented in this encounter Progress Notes * Ketan Jacob MD - 08/13/2022 1:48 PM EDT Subjective Sumi Eng is a 86 year old female. Chief Complaint Patient presents with Follow Up Pt here with family, c/o back pain. Pts granddaughter states she slipped on lift chair and landed on ground HPI: Here for routine check up Extensive hx of cardiovascular ds : Arterial occlusion of femoral a , rt - started taking plavix, also on eliquis Permanent afib Hx Of CVA, known HTN, HL, CK, aortic atherosclerosis , hypothyroidism and CKD stage 3 Increased metoprolol to 100 mg bid currently per cardio HR still high 90 to 100 Dementia - moderate Activity - walker Recent fall, slipped from lift chair Some lower back pain Tylenol prn , helps but would like to check lumbar spine Known osteoporosis preDM - not on med, hba1c 6.1 PMH: Patient Active Problem List Diagnosis Code Osteoarthrosis M19.90 Hypothyroidism E03.9 Dyslipidemia, goal LDL below 130 E78.5 History of CVA (cerebrovascular accident) Z86.73 Bilateral lower extremity edema R60.0 Chronic pain of left knee M25.562, G89.29 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 Aortic atherosclerosis ([facility]) I70.0 Permanent atrial fibrillation ([facility]) I48.21 Cerebrovascular disease I67.9 Hypertensive heart and kidney disease with chronic diastolic congestive heart failure and [id number] chronic kidney disease ([facility]) I13.0, I50.32, N18.32 Chronic diastolic heart failure (HCC) I50.32 Chronic kidney disease, stage 3b ([facility]) N18.32 Gastro-esophageal reflux disease without esophagitis K21.9 Senile osteoporosis M81.0 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 1 Inhaler 1 Nystatin 342363 UNIT/GM External Powder (Nystop) Apply topically to affected area 3 times a day. Apply to groin 60 g 1 Nystatin 926500 UNIT/GM External Cream Apply topically to affected [...] 0.5 Tablets before bedtime. 30 Tablet 1 No current facility-administered medications [...] performed by Silver Traore MD at [facility] IR ARTERIOGRAM EXTREMITY UNILATERAL Right 07/08/2021 IMAGING SUPERVISION & INTERPRETATION EXTREMITY UNILATERAL performed by Silver Traore MD at [facility] THROMBECTOMY, PERC PRIMARY ARTERIAL MECHANICAL, ADD-ON Right 07/08/2021 MECHANICAL THROMBECTOMY, ARTERIAL OR ARTERIAL BYPASS GRAFT, ADDITIONAL VESSEL performed by Silver Traore MD at [facility] THROMBECTOMY, PERC PRIMARY ARTERIAL MECHANICAL, INIT Right 07/08/2021 MECHANICAL THROMBECTOMY, ARTERIAL OR ARTERIAL BYPASS GRAFT, INITIAL VESSEL performed by Silver Traore MD at [facility] Review of patient's allergies indicates: Allergen Reactions [...] of Systems Constitutional: Positive for activity change (lower back pain ) and fatigue. Negative for appetite change, chills, diaphoresis, fever and unexpected weight change. HENT: Positive for congestion (occ). Eyes: Positive for discharge and redness (rt , tear duct obstruction , mild , stable ). Negative for pain and visual disturbance. Respiratory: Negative for cough, chest tightness, shortness of breath and wheezing. Cardiovascular: Positive for leg swelling (stable mild ). Negative for chest pain and palpitations. Gastrointestinal: Negative for abdominal distention and abdominal pain. Endocrine: Negative. Musculoskeletal: Positive for arthralgias, back pain, gait problem and joint swelling. Neurological: Positive for weakness (legs). Negative for dizziness and light-headedness. Dementia Psychiatric/Behavioral: Positive for sleep disturbance. Negative for agitation, behavioral problemsand dysphoric mood. Objective BP 122/72 (BP Site: Left Arm, BP Position: Sitting, BP Cuff Size: Regular) | Pulse 96 | Temp 36.9 C (98.4 F) (Tympanic) | Resp 18 | Ht 1.575 m (5' 2") | Wt 68.5 kg (151 lb) | BMI 27.62 kg/m | BSA 1.73 m Physical Exam Constitutional: General: She is not in acute distress. Appearance: Normal appearance. She is not ill-appearing, toxic-appearing or diaphoretic. HENT: Head: Normocephalic and atraumatic. Nose: Nose normal. Eyes: General: Right eye: No discharge. Extraocular Movements: Extraocular movements intact. Pupils: Pupils are equal, round, and reactive to light. Comments: Rt eye red , lower eyelid swelling chronic Cardiovascular: Rate and Rhythm: Tachycardia present. Rhythm irregular. Heart sounds: Murmur heard. Pulmonary: Effort: Pulmonary effort is normal. No respiratory distress. Breath sounds: No stridor. No wheezing, rhonchi or rales. Chest: Chest wall: No tenderness. Musculoskeletal: General: Tenderness (lower back , knees) present. Right lower leg: Edema present. Left lower leg: Edema present. Neurological: General: No focal deficit present. Mental Status: She is alert. She is disoriented. Cranial Nerves: No cranial nerve deficit. Gait: Gait abnormal. Psychiatric: Behavior: Behavior normal. 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 Follow Up: Return in about 4 months (around 12/14/2022) for Clinic Visit. | For: Clinic Visit F/u xray Trial baclofen Cont meds F/u with cardio Fall precaution Ketan Jacob MD documented in this encounter Plan of Treatment Upcoming Encounters Date Type Specialty Care Team Description 08/23/2022 Office Visit Cardiology Angelika Guillen PA-C [address] [place] [address] 12/14/2022 Office Visit Family Medicine Ketan Jacob MD [address] [place] [address] Scheduled Orders Name Type Priority Associated Diagnoses Orde r Schedule XR L SPINE AP AND LATERAL Medical Imaging Routine Fall, initial encounter Acute bilateral low back pain without sciatica Ordered: 08/13/2022 Health Maintenance Due Date Last Done Comments [...] Additional history exists CKD PHOS USE SMARTSET 01199 12/22/202212/08, 11/24/2020, 06/20/2018, Additional history exists CKD HGB USE SMARTSET 57011 03/19/202303/19, 03/19/2022, 12/22/2021, Additional history exists HbA1c 03/19/2023 03/19/2022, 07/09, 11/24/2020, Additional history exists Pneumococcal Vaccine: 65+ Years Completed 11/14/2015, 06/29/2010 VITAMIN D LEVEL ONCE IN A LIFETIME-USE SMARTSET# [id number] Completed 03/19/2022, 07/19/2014, 10/15/2013, Additional history exists [...] as of this encounter Visit Diagnoses Diagnosis Fall, initial encounter- Primary Acute bilateral low back pain without sciatica Permanent atrial fibrillation (HCC) Atrial fibrillation Hypertensive heart and kidney disease with chronic diastolic congestive heart failure and stage 3b chronic kidney disease (HCC) Chronic diastolic heart failure (HCC) Chronic diastolic heart failure 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 Aortic atherosclerosis (HCC) Atherosclerosis of aorta Prediabetes Other abnormal glucose Senile osteoporosis Mild dementia without behavioral disturbance, psychotic disturbance, mood disturbance, or anxiety, unspecified dementia type (HCC) History of CVA (cerebrovascular accident) Transient ischemic attack (TIA), and cerebral infarction without residual deficits Bilateral lower extremity edema Edema documented in this encounter Advance Directives Documents on File Type Date Recorded Patient Healthcare Advisory Services Manager 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 Code Status History Code Status Date Activated Date Inactivated Comments None 03/04/2004 12:53 PM 03/04/2004 1:53 PM Care Teams Steam Shovel Operator Relationship Specialty Start Date End Date Ketan Jacob MD [address] [place] [address] PCP - General Internal Medicine 08/05/21 documented as of this encounter
--- OUTSIDE RECORDS SUMMARY | 2022-12-31 22:17 | External Medical Summary | Summary of Care ---
Author Name Unknown Organization [facility] Address [address] [place] [address] Phone [phone] Care Team Providers Care Manager Floor Name Role Phone Ketan Jacob MD Primary Care Provider [phone] Reason for Visit * Reason Onset Date Comments Test Results 07/30/2022 Encounter Details Date Type Department Care Team Description 07/30/2022 Telephone Cardiology, [facility] [address] [place] [address] Angelika Guillen PA-C [address] [place] [address] Test Results Allergies Active Allergy Reactions Severity Noted Date Comments Aspirin Nausea/vomiting 08/19/2011 documented as of this encounter (statuses as of 08/06/2022) Medications Medication Sig Dispensed Refills Start Date [...] daily. 1 Inhaler 1 06/20/2018 Active Nystatin [id number] UNIT/GM External Powder (Nystop)Indications :Intertrigo Apply topically to affected area 3 times a day. Apply to groin 60 g 1 11/20/2020 Active Nystatin 966674 UNIT/GM External CreamIndications:In tertrigo Apply topically to [...] FOR CHOLESTEROL 90 Tablet 3 05/31/2022 Active Spironolactone 25 MG Oral Tablet (Aldactone) Take 0.5 Tablets by mouth in the morning. 30 Tablet 5 06/17/2022 Active Metoprolol Tartrate 100 MG Oral Tablet [...] the morning. 100 Tablet 3 07/23/2022 Active documented as of this encounter (statuses as of 08/06/2022) Active Problems Problem Noted Date Prediabetes 03/22/2022 [...] due to dementia 01/02/2019 Aortic atherosclerosis 01/02/2019 Paroxysmal atrial fibrillation 9 Bilateral lower extremity edema 09/02/19 18 Chronic pain of left knee 09/01/2017 Dyslipidemia, goal LDL below 130 013 History of CVA (cerebrovascular accident ) 03/24/2012 Hypothyroidism 06/28/2008 Osteoarthrosis documented as of this encounter (statuses as of 08/06/2022) Resolved Problems Problem Noted Date Resolved Date [...] as of this encounter (statuses as of 08/06/2022) Immunizations Name Administration Dates Next Due Influenza, Whole Virus 12/02/2000,12/03/1992 Pneumococcal Conjugate Vacc, 13 Valent (Prevnar) 11/14/2015 Pneumococcal Conjugate Vacci ne, 7 Valent 12/02/2000 Pneumococcal Polysaccharide PPV23 (Pneumovax) 06/29/2010 Seasonal Influenza, Cell Cul ture, 18 Yrs & Older 12/29/2012 Seasonal Influenza, Quadriva lent Hd (Fluzone Hd) 11/12/2021,11/20/2020 Seasonal Influenza, Quadriva lent, No Preserve, 6 Mons & Above, IM 12/20/2017,12/01/2016 Seasonal Influenza, Quadriva lent, No Preserve, Adjuvanted, 65+ Yrs, IM 11/21/2019 Seasonal Influenza, Quadriva lent, No Preserve, IM 11/14/2015,11/21/2014 Seasonal Influenza, Split, I IV3, With Preserve, Inj 11/20/2013,03/24/2012,12/10/2010,11/14,12/09/2005,11/20/2002 Seasonal Influenza, Trivalen t, Adjuvanted, 65+ yrs [...] encounter Miscellaneous Notes * Telephone Encounter - Frederic Valente LPN - 08/06/2022 3:31 PM EDT Sent patient a letter to follow up on unread MyChart messa. * Telephone Encounter - Frederic Valente LPN - 07/30/2022 10:17 AM EDT Sent patient a [employer] message to make aware. ----- Message from Angelika Guillen PA-C sent at 07/30/2022 10:13 AM EDT ----- Stable labs. Good. No changes at this time. documented in this encounter Plan of Treatment Upcoming Encounters Date Type Specialty Care Team Description 08/13/2022 Office Visit [facility] [address] [facility] [address] 08/23/2022 Office Visit Cardiology Angelika Guillen PA-C [...] FOR OSTEOPOROSIS (REFER TO SMARTSET #1146) 01/23/2021 TSH 12/04/2022 12/04/2021, 11/07, 08/06/2019, Additional history exists CKD PHOS USE SMARTSET 66156 12/22/202212/08, 11/24/2020, 06/20/2018, Additional history exists CKD HGB USE SMARTSET 79345 03/19/202303/19, 03/19/2022, 12/22/2021, Additional history exists HbA1c 03/19/2023 03/19/2022, 07/09, 11/24/2020, Additional history exists Pneumococcal Vaccine: 65+ Years Completed 11/14/2015, 06/29/2010 Influenza Vaccine (FLU shot) Completed 07/2021, 11/20/2020, 11/21/2019, Additional history exists VITAMIN D LEVEL ONCE IN A LIFETIME-USE SMARTSET# [id number] Completed 03/19/2022, 07/19/2014, 10/15/2013, Additional history exists [...] Documents on File Type Date Recorded Patient Water Resource Project Manager 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 Code Status History Code Status Date Activated Date Inactivated Comments None 03/04/2004 12:53 PM 03/04/2004 1:53 PM Care Teams Manager Floor Relationship Specialty Start Date End Date Ketan Jacob MD [address] [place] [address] PCP - General Internal Medicine 08/05/21 documented as of this encounter
--- OUTSIDE RECORDS SUMMARY | 2022-12-31 22:17 | External Medical Summary | Summary of Care ---
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 1 Inhaler 1 06/20/2018 Active Nystatin 671572 UNIT/GM External Powder (Nystop)Indications :Intertrigo Apply topically to affected area 3 times a day. Apply to groin 60 g 1 11/20/2020 Active Nystatin 991100 UNIT/GM External CreamIndications:In tertrigo Apply topically to affected area 2 times a day. To affacted area for two weeks. 30 g 1 11/20/2020 Active Vitamin B-12 1000 MCG Oral TabletIndications:E ncounter for long-term (current) use of other medications Take by mouth 1 Tablet in the morning. 100 Tablet 3 06/09/2021 Active Triamcinolone Acetonide 0.1 % External Ointment [...] the afternoon. 360 Tablet 3 07/06/2022 Active documented as of this encounter (statuses as of 07/12/2022) Active Problems Problem Noted Date Prediabetes 03/22/2022 [...] as of this encounter (statuses as of 07/12/2022) Resolved Problems Problem Noted Date Resolved Date [...] as of this encounter (statuses as of 07/12/2022) Immunizations Name Administration Dates Next Due Pneumococcal [...] Encounters Date Type Specialty Care Team Description 07/29/2022 Office Visit Cardiology Angelika Guillen PA-C [address] [place] [address] 08/06/2022 Office Visit Family Medicine Ketan Jacob MD [address] [place] [address] Pending Results Name Type Priority Associated Diagnoses Date /Time LIPID PANEL WITH DIRECT LDL IF TG IS HIGH Lab Routine 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) History of CVA (cerebrovascular accident) 07/12/2022 3:42 PM EDT BASIC METABOLIC PANEL Lab Routine Chronic diastolic heart failure (HCC) Localized edema 07/12/2022 3:42 PM EDT Health Maintenance Due Date Last Done [...] Additional history exists CKD PHOS USE SMARTSET 59606 12/22/202212/08, 11/24/2020, 06/20/2018, Additional history exists CKD HGB USE SMARTSET 24848 03/19/202303/19, 03/19/2022, 12/22/2021, Additional history exists HbA1c 03/19/2023 03/19/2022, 07/09, 11/24/2020, Additional history exists Pneumococcal Vaccine: 65+ Years Completed 11/14/2015, 06/29/2010 Influenza Vaccine (FLU shot) Completed 07/2021, 11/20/2020, 11/21/2019, Additional history exists VITAMIN D LEVEL ONCE IN A LIFETIME-USE SMARTSET# [id number] Completed 03/19/2022, 07/19/2014, 10/15/2013, Additional history exists [...] as of this encounter Visit Diagnoses Diagnosis 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 History of CVA (cerebrovascular accident) Transient ischemic attack (TIA), and cerebral infarction without residual deficits Chronic diastolic heart failure (HCC) Chronic diastolic heart failure Localized edema Edema documented in this encounter Advance Directives Documents on File Type Date Recorded Patient Racecourse Barrier Attendant 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 Code Status History Code Status Date Activated Date Inactivated Comments None 03/04/2004 12:53 PM 03/04/2004 1:53 PM Care Teams College Service Officer Relationship Specialty Start Date End Date Ketan Jacob MD [address] [place] [address] PCP - General Internal Medicine 08/05/21 documented as of this encounter
--- OUTSIDE RECORDS SUMMARY | 2022-12-31 22:17 | External Medical Summary | Summary of Care ---
Author Name Unknown Organization [facility] Address [address] [place] [address] Phone [phone] Care Team Providers Care Copy Clerk Name Role Phone Ketan Jacob MD Primary Care Provider [phone] Reason for Visit * Reason Comments Outpatient Testing Encounter Details Date Type Department Care Team Description 07/28/2022 Laboratory Laboratory, [facility] [address] [place] [address] [facility] [address] [place] [address] Renal insufficiency, mild Allergies Active Allergy Reactions Severity Noted Date Comments Aspirin Nausea/vomiting 08/19/2011 documented as of this encounter (statuses as of 07/28/2022) Medications Medication Sig Dispensed Refills Start Date [...] daily. 1 Inhaler 1 06/20/2018 Active Nystatin 062076 UNIT/GM External Powder (Nystop)Indications :Intertrigo Apply topically to affected area 3 times a day. Apply to groin 60 g 1 11/20/2020 Active Nystatin 497533 UNIT/GM External CreamIndications:In tertrigo Apply topically to [...] as of this encounter (statuses as of 07/28/2022) Active Problems Problem Noted Date Prediabetes 03/22/2022 [...] as of this encounter (statuses as of 07/28/2022) Resolved Problems Problem Noted Date Resolved Date [...] as of this encounter (statuses as of 07/28/2022) Immunizations Name Administration Dates Next Due Pneumococcal [...] Guillen PA-C [address] [place] [address] 08/06/2022 Office Visit Family Medicine Ketan Jacob MD [address] [place] [address] Pending Results Name Type Priority Associated Diagnoses Date /Time BASIC METABOLIC PANEL Lab Routine Renal insufficiency, mild 07/28/2022 2:29 PM EDT Health Maintenance Due Date Last [...] Additional history exists CKD PHOS USE SMARTSET 64877 12/22/202212/08, 11/24/2020, 06/20/2018, Additional history exists CKD HGB USE SMARTSET 46257 03/19/202303/19, 03/19/2022, 12/22/2021, Additional history exists HbA1c 03/19/2023 03/19/2022, 07/09, 11/24/2020, Additional history exists Pneumococcal Vaccine: 65+ Years Completed 11/14/2015, 06/29/2010 Influenza Vaccine (FLU shot) Completed 07/2021, 11/20/2020, 11/21/2019, Additional history exists VITAMIN D LEVEL ONCE IN A LIFETIME-USE SMARTSET# 10333 Completed 03/19/2022, 07/19/2014, 10/15/2013, Additional history exists [...] as of this encounter Visit Diagnoses Diagnosis Renal insufficiency, mild Unspecified disorder of kidney and ureter documented in this encounter Advance Directives Documents on File Type Date Recorded Patient Outboard Motor Tester 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 Code Status History Code Status Date Activated Date Inactivated Comments None 03/04/2004 12:53 PM 03/04/2004 1:53 PM Care Teams Copy Clerk Relationship Specialty Start Date End Date Ketan Jacob MD [address] [place] [address] PCP - General Internal Medicine 08/05/21 documented as of this encounter
--- OUTSIDE RECORDS SUMMARY | 2022-12-31 22:17 | External Medical Summary | Summary of Care ---
Author Name Unknown Organization [facility] Address [address] [place] [address] Phone [phone] Care Team Providers Care Picking Machine Operator Name Role Phone Ketan Jacob MD Primary Care Provider [phone] Reason for Visit * Reason Onset Date Comments Fax Refill 08/09/2022 Encounter Details Date Type Department Care Team Description 08/09/2022 Telephone Cardiology, [facility] [address] [facility] [address] Angelika Guillen PA-C [address] [place] [facility] [place] [address] Fax Refill Allergies Active Allergy Reactions Severity Noted Date Comments Aspirin Nausea/vomiting 08/19/2011 documented as of this encounter (statuses as of 08/09/2022) Medications Medication Sig Dispensed Refills Start Date [...] 5 12/01/2016 Active Nebulizers (NEBULIZER COMPRESSOR) MISCIndications:B carmen, ebonie Inhale via nebulizer. Use as directed. 1 Each 1 05/20/2017 Active Calcium Carb-Cholecalcife rol (OYSTERCAL-D) 500-400 MG-UNIT TABS TAKE 1 TABLET 3X A DAY, WITH MEALS, TO HELP WITH BONES 270 Tab 1 11/25/2017 Active fluticasone (FLONASE) 50 MCG/ACT nasal sprayIndications: Sinus congestion Administer 2 Sprays into each nostril daily. 1 Inhaler 1 06/20/2018 Active Nystatin 954810 UNIT/GM External Powder (Nystop)Indicatio ns:Intertrigo Apply topically to affected area 3 times a day. Apply to groin 60 g 1 11/20/2020 Active Nystatin 525870 UNIT/GM External CreamIndications: Intertrigo Apply topically to [...] the morning. 90 Tablet 3 08/09/2022 Active Spironolactone 25 MG Oral Tablet (Aldactone) Take 0.5 Tablets by mouth in the morning. 30 Tablet 5 06/17/2022 3 Discontinue d(Refill) documented as of this encounter (statuses as of 08/09/2022) Active Problems Problem Noted Date Prediabetes 03/22/2022 [...] as of this encounter (statuses as of 08/09/2022) Resolved Problems Problem Noted Date Resolved Date [...] as of this encounter (statuses as of 08/09/2022) Immunizations Name Administration Dates Next Due Pneumococcal [...] encounter Miscellaneous Notes * Telephone Encounter - Angelika Guillen PA-C - 08/09/2022 10:35 AM EDT Orders signed as requested. * Telephone Encounter - Frederic Valente LPN - 08/09/2022 9:10 AM EDT 90 day script request Did you pend patient's preferred pharmacy and medication before forwarding?yes Pharmacy: [id number] Pending Prescriptions: Disp Refills Spironolactone 25 MG Oral Tablet (Aldacto*90 Tab*3 Sig: Take 0.5 Tablets by mouth in the morning. Last Visit: 06/17/2022 (in office), 05/07/2020 (telemedicine) Next Visit: 08/23/2022 If no future appointments scheduled, and last appointment is greater than a year ago, please schedule patient for a follow-up appointment Last date the medication was ordered: 06/17/22 Is this request for a controlled substance?No Urine Drug Screen:No results found. However, due to the size of the patient record, not all encounters were searched. Please check Results Review for a complete set of results. Patient Phone Numbers Labs: Lab Results Component Value Date/Time CREAT 1.3 (H) 07/28/2022 02:29 PM CREAT 1.5 (H) 12/17/2019 11:18 AM POTASSIUM 4.5 07/28/2022 02:29 PM POTASSIUM 3.5 07/08/2021 09:10 AM POTASSIUM 4.3 12/17/2019 11:18 AM TSH 3.93 12/04/2021 02:50 PM TSH 3.13 08/06/2019 02:18 PM TSH 4.60 02/20/1996 02:00 PM LDLCALC 46 07/12/2022 03:42 PM LDLCALC 44 07/23/2018 12:00 AM LDLCALC 62 01/27/2017 02:23 PM ALT 11 03/19/2022 04:52 PM ALT 7 (L) 08/06/2019 02:18 PM ALT 17 02/20/1996 02:00 PM HGBA1C 6.1 (H) 03/19/2022 04:52 PM HGBA1C 6.1 (H) 01/02/2019 04:04 PM documented in this encounter Plan of Treatment Upcoming Encounters Date Type Specialty Care Team Description 08/13/2022 Office Visit Family Medicine Ketan Jacob MD [address] [place] [address] [address] 08/23/2022 Office Visit Cardiology Angelika Guillen PA-C [address] [place] [address] Health Maintenance Due Date Last Done Comments [...] Additional history exists CKD PHOS USE SMARTSET 16010 12/22/202212/08, 11/24/2020, 06/20/2018, Additional history exists CKD HGB USE SMARTSET 08785 03/19/202303/193, 03/19/2022, 12/22/2021, Additional history exists HbA1c 03/19/2023 03/19/2022, 07/09, 11/24/2020, Additional history exists Pneumococcal Vaccine: 65+ Years Completed 11/14/2015, 06/29/2010 VITAMIN D LEVEL ONCE IN A LIFETIME-USE SMARTSET# 91846 Completed 03/19/2022, 07/19/2014, 10/15/2013, Additional history exists [...] Documents on File Type Date Recorded 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 Code Status History Code Status Date Activated Date Inactivated Comments None 03/04/2004 12:53 PM 03/04/2004 1:53 PM Care Teams Picking Machine Operator Relationship Specialty Start Date End Date Ketan Jacob MD [address] [place] [address] PCP - General Internal Medicine 08/05/21 documented as of this encounter
--- OUTSIDE RECORDS SUMMARY | 2022-12-31 22:17 | External Medical Summary ---
Author Name Unknown Address Unknown Organization K01:[facility] [place] [address] [place] [address] Laboratory Report Ordering Provider Test Date Status GILSON[place] 07/12/2022 15:42:49 Final Observation Date Value Abnormality Reference (Units ) Status BUN 07/12/2022 15:42:49 16 6-20 (mg/dL) Final Creatinine 07/12/2022 15:42:49 1.5 Above high normal 0.5-1.0 (mg/dL) Final Glomerular filtration rate/1.73 sq M.predicted [Volume Rate/Area] in Serum, Plasma or Blood by Creatinine-based formula (CKD-EPI) 07/12/2022 15:42:49 34 Below low normal >=60 (mL/min) Final eGFR is calculated based on the CKD-EPI 2020 equation SODIUM 07/12/2022 15:42:49 140 135-146 (m mol/L) Final Potassium 07/12/2022 15:42:49 4.9 3.5-5.1 (m mol/L) Final Cl 07/12/2022 15:42:49 101 98-107 (mm ol/L) Final CO2 07/12/2022 15:42:49 27 22-32 (mmo l/L) Final Anion gap 07/12/2022 15:42:49 12 7-15 (mmol /L) Final Glucose 07/12/2022 15:42:49 96 70-120 (mg /dL) Final Calcium 07/12/2022 15:42:49 8.6 8.4-10.2 ( mg/dL) Final Performing Location [facility] [place] [address] [place] [address]
--- OUTSIDE RECORDS SUMMARY | 2022-12-31 22:17 | External Medical Summary ---
Author Name Unknown Address Unknown Organization K01:[facility] [place] [address] [place] [address] Laboratory Report Ordering Provider Test Date Status GILSONCAIT[place] 07/28/2022 14:29:18 Final Observation Date Value Abnormality Reference (Units ) Status BUN 07/28/2022 14:29:18 18 6-20 (mg/dL) Final Creatinine 07/28/2022 14:29:18 1.3 Above high normal 0.5-1.0 (mg/dL) Final Glomerular filtration rate/1.73 sq M.predicted [Volume Rate/Area] in Serum, Plasma or Blood by Creatinine-based formula (CKD-EPI) 07/28/2022 14:29:18 39 Below low normal >=60 (mL/min) Final eGFR is calculated based on the CKD-EPI 2020 equation SODIUM 07/28/2022 14:29:18 141 135-146 (m mol/L) Final Potassium 07/28/2022 14:29:18 4.5 3.5-5.1 (m mol/L) Final Cl 07/28/2022 14:29:18 100 98-107 (mm ol/L) Final CO2 07/28/2022 14:29:18 31 22-32 (mmo l/L) Final Anion gap 07/28/2022 14:29:18 10 7-15 (mmol /L) Final Glucose 07/28/2022 14:29:18 103 70-120 (mg /dL) Final Calcium 07/28/2022 14:29:18 8.6 8.4-10.2 ( mg/dL) Final Performing Location [facility] [place] - [facility] [address] [place] [address]
--- OUTSIDE RECORDS SUMMARY | 2022-12-31 22:17 | External Medical Summary ---
Author Name Unknown Address Unknown Organization K01:[facility] [place] [address] [place] [address] [place] [address] Laboratory Report Ordering Provider Test Date Status COLT JACOBSON 07/12/2022 15:42:49 Final Observation Date Value Abnormality Reference (Units ) Status Triglyceride 07/12/2022 15:42:49 106 <=174 ( mg/dL) Final Triglyceride Reference Range s (mg/dL):
<150 Acceptable
150-174 Borderline high
175-499 High
>=500 Very high Cholesterol 07/12/2022 15:42:49 104 <200 (mg /dL) Final Total Cholesterol Reference Ranges (mg/dL):
<200 Desirable
200-239 Borderline high
>=240 High HDL 07/12/2022 15:42:49 37 Below low normal >49 (mg/dL) Final HDL Cholesterol Reference Ra nges (mg/dL):
>=60 High (Desirable)
<50 Low (Undesirable) For Females
<40 Low (Undesirable) For Males NON-HDL CHOLESTEROL 07/12/2022 15:42:49 67 <=159 (mg/dL) Final Non-HDL Cholesterol Referenc e Range (mg/dL):
<100 Target level for high risk ASCVD patient
<130 Optimal for general population
130-159 Near optimal for general population
160-189 Borderline High
190-219 High
>=220 Very High LDL, (calculated) 07/12/2022 15:42:49 46 <= 129 (mg/dL) Final LDL Cholesterol Reference Ra nges (mg/dL):
<70 Target level for high risk ASCVD patient
<100 Optimal for general population
100-129 Near optimal for general population
130-159 Borderline high
160-189 High
>=190 Very high Performing Location [facility] [place] - [address] [facility] [address]
--- OUTSIDE RECORDS SUMMARY | 2022-12-31 22:17 | External Medical Summary | Summary of Care ---
Author Name Unknown Organization [facility] Address [address] [place] [address] Phone [phone] Care Team Providers Care Career Representative Name Role Phone Ketan Jacob MD Primary Care Provider [phone] Reason for Visit * Reason Onset Date Comments Test Results 07/30/2022 Encounter Details Date Type Department Care Team Description 07/30/2022 Telephone Cardiology, [facility] [address] [place] [address] Angelika Guillen PA-C [address] [place] [address] Test Results Allergies Active Allergy Reactions Severity Noted Date Comments Aspirin Nausea/vomiting 08/19/2011 documented as of this encounter (statuses as of 07/30/2022) Medications Medication Sig Dispensed Refills Start Date [...] daily. 1 Inhaler 1 06/20/2018 Active Nystatin 630225 UNIT/GM External Powder (Nystop)Indications :Intertrigo Apply topically to affected area 3 times a day. Apply to groin 60 g 1 11/20/2020 Active Nystatin 829671 UNIT/GM External CreamIndications:In tertrigo Apply topically to [...] as of this encounter (statuses as of 07/30/2022) Active Problems Problem Noted Date Prediabetes 03/22/2022 [...] as of this encounter (statuses as of 07/30/2022) Resolved Problems Problem Noted Date Resolved Date [...] as of this encounter (statuses as of 07/30/2022) Immunizations Name Administration Dates Next Due Pneumococcal [...] 07/30/2022 10:17 AM EDT Sent patient a MyChart message to make aware. ----- Message from Angelika Guillen PA-C sent at 07/30/2022 10:13 AM EDT ----- Stable labs. Good. No changes at this time. documented in this encounter Plan of Treatment Upcoming Encounters Date Type Specialty Care Team Description 08/13/2022 Office Visit Family Medicine Ketan Jacob MD [address] [facility] [place] [address] 08/23/2022 Office Visit Cardiology Angelika Guillen PA-C [address] [place] [address] Health Maintenance Due Date Last Done Comments [...] Additional history exists CKD PHOS USE SMARTSET 36932 12/22/202212/08, 11/24/2020, 06/20/2018, Additional history exists CKD HGB USE SMARTSET 95913 03/19/202303/19, 03/19/2022, 12/22/2021, Additional history exists HbA1c 03/19/2023 03/19/2022, 07/09, 11/24/2020, Additional history exists Pneumococcal Vaccine: 65+ Years Completed 11/14/2015, 06/29/2010 Influenza Vaccine (FLU shot) Completed 07/2021, 11/20/2020, 11/21/2019, Additional history exists VITAMIN D LEVEL ONCE IN A LIFETIME-USE SMARTSET# 18723 Completed 03/19/2022, 07/19/2014, 10/15/2013, Additional history exists [...] Documents on File Type Date Recorded Patient Focuser 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 Code Status History Code Status Date Activated Date Inactivated Comments None 03/04/2004 12:53 PM 03/04/2004 1:53 PM Care Teams Career Representative Relationship Specialty Start Date End Date Ketan Jacob MD [address], [place] [id number] PCP - General Internal Medicine 08/05/21 documented as of this encounter
--- OUTSIDE RECORDS SUMMARY | 2022-12-31 22:17 | External Medical Summary | Summary of Care ---
Author Name Unknown Organization [facility] Address [address] [place] [address] Phone [phone] Care Team Providers Care Bead Forming Machine Operator Name Role Phone Ketan Jacob MD Primary Care Provider [phone] Encounter Details Date Type Department Care Team Description 07/23/2022 Refill [facility] [address] [place] [address] Ketan Jacob MD [address] [place] [address] Encounter for long-term (current) use of other medications Allergies Active Allergy Reactions Severity Noted Date Comments Aspirin Nausea/vomiting 08/19/2011 documented as of this encounter (statuses as of 07/23/2022) Medications Medication Sig Dispensed Refills Start Date [...] 12/01/2016 Active Nebulizers (NEBULIZER COMPRESSOR) MISCIndications:B carmen, complicated Inhale via nebulizer. Use as directed. 1 Each 1 05/20/2017 Active Calcium Carb-Cholecalcife rol (OYSTERCAL-D) 500-400 MG-UNIT TABS TAKE 1 TABLET 3X A DAY, WITH MEALS, TO HELP WITH BONES 270 Tab 1 11/25/2017 Active fluticasone (FLONASE) 50 MCG/ACT nasal sprayIndications: Sinus congestion Administer 2 Sprays into each nostril daily. 1 Inhaler 1 06/20/2018 Active Nystatin 956023 UNIT/GM External Powder (Nystop)Indicatio ns:Intertrigo Apply topically to affected area 3 times a day. Apply to groin 60 g 1 11/20/2020 Active Nystatin 974617 UNIT/GM External CreamIndications: Intertrigo Apply topically to [...] the morning. 100 Tablet 3 07/23/2022 Active Vitamin B-12 1000 MCG Oral TabletIndications :Encounter for long-term (current) use of other medications Take by mouth 1 Tablet in the morning. 100 Tablet 3 06/09/2021 3 Discontinue d(Refill) documented as of this encounter (statuses as of 07/23/2022) Active Problems Problem Noted Date Prediabetes 03/22/2022 [...] as of this encounter (statuses as of 07/23/2022) Resolved Problems Problem Noted Date Resolved Date [...] as of this encounter (statuses as of 07/23/2022) Immunizations Name Administration Dates Next Due Pneumococcal [...] Telephone Encounter - Ketan Jacob MD - 07/23/2022 6:34 PM EDTSigned Prescriptions: Disp Refills Vitamin B-12 1000 MCG Oral Tablet (Cyanoco*100 Ta*3 Sig: Take 1 Tablet by mouth in the morning.Authorizing Provider: KETAN JACOB documented in this encounter Plan of Treatment Upcoming Encounters Date Type Specialty Care Team Description 07/29/2022 Office Visit Cardiology Angelika Guillen PA-C [address] [place] [address] 08/06/2022 Office Visit Family Medicine [facility] [address] [facility] [phone] Health Maintenance Due Date Last Done Comments [...] Additional history exists CKD PHOS USE SMARTSET 51987 12/22/202212/08, 11/24/2020, 06/20/2018, Additional history exists CKD HGB USE SMARTSET 92840 03/19/202303/19, 03/19/2022, 12/22/2021, Additional history exists HbA1c 03/19/2023 03/19/2022, 0610/2021, 11/24/2020, Additional history exists Pneumococcal Vaccine: 65+ Years Completed 11/14/2015, 06/29/2010 Influenza Vaccine (FLU shot) Completed 07/2021, 11/20/2020, 11/21/2019, Additional history exists VITAMIN D LEVEL ONCE IN A LIFETIME-USE SMARTSET# 41100 Completed 03/19/2022, 07/19/2014, 10/15/2013, Additional history exists [...] as of this encounter Visit Diagnoses Diagnosis Encounter for long-term (current) use of other medications documented in this encounter Advance Directives Documents on File Type Date Recorded Patient Floorwalker 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 Code Status History Code Status Date Activated Date Inactivated Comments None 03/04/2004 12:53 PM 03/04/2004 1:53 PM Care Teams Bead Forming Machine Operator Relationship Specialty Start Date End Date Ketan Jacob MD [address] [place] [address] PCP - General Internal Medicine 08/05/21 documented as of this encounter
--- NOTE | 2022-12-31 22:36 | Emergency Department Note ---
History of Present Illness General Chief complaint: Skin Problem Stated complaint: ?CELLULITIS, LEG INJURY DISCHARGE Time Seen by Provider: 12/31/22 22:15 Source: patient, family (Family member who is at the bedside.) and RN notes reviewed Mode of arrival: ambulatory Limitations: no limitations History of Present Illness This patient 87-year-old female who has a history of CHF A-fib chronic anticoagulation with Eliquis and chronic lower extremity edema comes in after having clear drainage from her legs she has been scratching her legs a lot. They did not to be Tronic chronically swollen they go up and down. Has been taking her meds. No shortness of breath fever chills or chest pain occasional cough no nausea vomiting she been drinking liquids without difficulty. Family's been trying to stop her from scratching but now she has scratching with some clear drainage. Family members at the bedside tells me she will not stay in the hospital Home Medications Medication Instructions Recorded Confirmed Type atorvastatin 10 mg tablet 10 mg PO HS 03/05/18 12/31/22 History clopidogrel 75 mg tablet 75 mg PO QAM 03/05/18 12/31/22 History levothyroxine 25 mcg tablet 25 mcg PO QAM 03/05/18 12/31/22 History pantoprazole 40 mg tablet,delayed 40 mg PO QAM 03/05/18 12/31/22 History release fluticasone propionate 50 2 spry intranasal DAILY PRN 05/09/18 12/31/22 History mcg/actuation nasal Congestion spray,suspension nystatin 100,000 unit/gram topical 1 applic topical BID PRN Skin 05/09/18 12/31/22 History cream Irritation acetaminophen 650 mg 650 mg PO Q6H PRN pain/fever 11/14/18 12/31/22 History tablet,extended release polyethylene glycol 3350 17 17 g PO DAILY PRN SEVERE 11/14/18 12/31/22 History gram/dose oral powder (Miralax) CONSTIPATION albuterol sulfate 2.5 mg/3 mL 2.5 mg inhalation DIRECTED PRN 11/27/18 12/31/22 History (0.083 %) solution for nebulization Wheezing cyanocobalamin (vitamin B-12) 1,000 mcg PO DAILY 07/08/21 12/31/22 History 1,000 mcg tablet (Vitamin B-12) docusate sodium 100 mg capsule 100 mg PO BID PRN Constipation 07/08/21 12/31/22 History (Stool Softener) nystatin 100,000 unit/gram topical 1 applic topical TID PRN Skin 07/08/21 12/31/22 History powder Irritation apixaban 5 mg tablet (Eliquis) 5 mg PO BID 04/16/22 12/31/22 History multivitamin 1 tab PO DAILY 04/16/22 12/31/22 History metoprolol tartrate 100 mg tablet 100 mg PO BID 12/31/22 12/31/22 History spironolactone 25 mg tablet 12.5 mg PO QAM 12/31/22 12/31/22 History torsemide 20 mg tablet See Rx Instructions .Route .COMPLEX 12/31/22 12/31/22 History Allergies Allergy/AdvReac Type Severity Reaction Status Date / Time aspirin Allergy Severe ANAPHYLAXIS, Verified 12/31/22 23:10 SWELLING, (PER [facility]--NAUSEA, VOMITING). Past Med/Surg History Medical History (Updated 12/31/22 @ 23:33 by Jian Guevara MD) UTI (urinary tract infection) Cellulitis of right lower extremity NACHO (generalized anxiety disorder) CVA (cerebral vascular accident) Right upper lobe pneumonia Acute cerebrovascular accident Acute CVA (cerebrovascular accident) Cerebrovascular disease Renal lesion Anemia Osteoarthritis Osteoporosis Adjustment reaction with anxiety and depression HTN (hypertension) Dyslipidemia CKD (chronic kidney disease) stage 3, GFR 30-59 ml/min Hypothyroidism Surgical History History of hip surgery left Family History Other Cancer Diabetes Hypertension Kidney disease No significant family history Social History Smoking Status: Never smoker Second Hand Exposure: No; Do You Dip or Chew Tobacco: No; Hx Alcohol Use: No Hx Substance Use: No Preferred Language: Indian 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 Ability: Effective 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 Ability Comment: [facility] [employer] Required: No Beliefs That Will Affect Care: None marital status: / Current Living Situation: Family Current Living Situation Comment: Lives with Daughter Otto and her family Feels Safe at Home: Yes Assistive Devices: Walker Review of Systems A total of 10 systems reviewed and were otherwise negative (With the family member) Physical Exam Vital Signs Vital Signs - 24 hr 12/31/22 22:11 12/31/22 22:56 12/31/22 22:56 Temperature 36.9 C Temperature Source Temporal Artery Scan Pulse Rate 91 H Pulse Rate [Apical] 98 H Pulse Rhythm [Apical] Pulse Strength [Apical] Respiratory Rate 17 18 Respiratory Effort / Characteristics Non-Labored Spontaneous Respiratory Depth Normal Normal Respiratory Pattern Regular Blood Pressure 137/76 Blood Pressure [Right Arm] 129/55 L Blood Pressure Mean 96 Blood Pressure Mean [Right Arm] 79 Blood Pressure Position [Right Arm] Lying Pulse Oximetry 98 100 100 Oxygen Delivery Method Room Air Room Air Room Air Sepsis Recent Fever Within 48 Hours No Sepsis New/Unexplained Change in Mental Status No Sepsis Action Taken by Nursing No Action Required 12/31/22 22:59 12/31/22 23:00 Temperature Temperature Source Pulse Rate 105 H Pulse Rate [Apical] 93 H Pulse Rhythm [Apical] Regular Pulse Strength [Apical] Normal Respiratory Rate 17 Respiratory Effort / Characteristics Non-Labored Spontaneous Respiratory Depth Normal Respiratory Pattern Regular Blood Pressure Blood Pressure [Right Arm] 129/55 L Blood Pressure Mean Blood Pressure Mean [Right Arm] 79 Blood Pressure Position [Right Arm] Lying Pulse Oximetry 96 Oxygen Delivery Method Room Air Sepsis Recent Fever Within 48 Hours Sepsis New/Unexplained Change in Mental Status Sepsis Action Taken by Nursing General: Well developed well nourished older female who is hard of hearing but appears in no acute distress, breathing comfortably on room air. Normal speech HEENT: Normal cephalic atraumatic. Pupils are equal round and reactive to light. Extraocular movements are intact. Oropharynx is pink with moist mucous membranes. No swelling of the mouth lips or tongue. Neck: Supple with a midline trachea. No meningeal signs or stiffness, no JVD or bruits. No Stridor. Chest: Clear to auscultation bilaterally. No wheezes or rhonchi. No increased work of breathing. Heart: Irregularly irregular without murmurs or gallops. Abdomen: Soft nontender, nondistended without rebound guarding or rigidity. Extremities: No cyanosis clubbing. She has bilateral lower extremity edema she has areas where she has been itching and there is some clear drainage and scabs. Mild pink discoloration diffusely. No calf tenderness or assymetry Spine/Back. Non tender to palpation. No CVA tenderness Skin: Good turgor without rashes. Neurologic exam: Cranial nerves two through 12 are intact. Nonfocal moving all 4 extremities symmetrically. Course Administered Medications Discontinued Medications Ceftriaxone Sodium (Rocephin) 2,000 mg in 50 mls @ 100 mls/hr IV NOW STA Stop: 12/31/22 23:45 Last Admin: 12/31/22 23:39 Dose: 100 mls/hr Documented By: IDD Medical Decision Making Differential Diagnosis Cellulitis, sepsis, CHF, electrolyte or metabolic abnormality, DVT, electrolyte or metabolic abnormality Medical Records Attestation: I reviewed the patient's medical records. Home Medications Current Medication List: was personally reviewed by me Laboratory Data Attestation: I reviewed the patient's lab results. 12/31/22 22:52 12/31/22 22:52 Lab Results 12/31/22 Range/Units 22:52 WBC 15.31 H (4.8-10.8) K/ul RBC 4.67 (4.20-5.40) M/uL Hgb 11.9 L (12.0-16.0) g/dl Hct 38.2 (37.0-47.0) % MCV 81.8 (80.0-100.0) fL MCH 25.5 (25.0-34.0) pg MCHC 31.2 L (32.0-36.0) g/dL RDW Std Deviation 49.0 H (36.4-46.3) fL RDW Coeff of Cain 16.4 H (11.5-14.5) % Plt Count 362 (130-400) K/uL MPV 9.9 (9.4-12.4) fL Immature Gran % (Auto) 0.8 % Neut % (Auto) 79.7 % Lymph % (Auto) 7.5 % [place] % (Auto) 8.8 % Eos % (Auto) 2.7 % Baso % (Auto) 0.5 % Neut # (Auto) 12.19 H (1.40-6.50) K/uL Lymph # (Auto) 1.15 L (1.20-3.40) K/uL [place] # (Auto) 1.34 H (0.11-0.59) K/uL Eos # (Auto) 0.42 (0.00-0.50) K/uL Baso # (Auto) 0.08 (0.00-0.20) K/uL Immature Gran # (Auto) 0.13 (0.01-0.20) K/uL Sodium 135 L (136-145) mmol/L Potassium 4.1 (3.5-5.1) mmol/L Chloride 93 L (98-107) mmol/L Carbon Dioxide 35 H (21-32) mmol/L Anion Gap 7 (3-11) BUN 18 (6-23) mg/dl Creatinine 1.48 H (0.6-1.2) mg/dl Est Cr Clr Drug Dosing Not Reportable Est GFR ( Amer) 36.0 ml/min Est GFR (Non-Af Amer) 31.1 ml/min BUN/Creatinine Ratio 12.2 (10-20) Glucose 142 H (70-99(Fasting)) mg/dl Lactate 2.3 H* (0.4-2.0) mmol/L Calcium 8.5 L (8.6-10.3) mg/dl Magnesium 1.5 L (1.7-2.4) mg/dl Total Bilirubin 0.6 (0.2-1.0) mg/dl Direct Bilirubin 0.2 (0-0.2) mg/dl AST 18 (13-39) U/L ALT 10 (7-52) U/L Alkaline Phosphatase 123 H (34-104) U/L B-Natriuretic Peptide 349 H (0-100) pg/ml Total Protein 7.8 (6.0-8.3) gm/dl Albumin 3.3 L (3.4-5.0) gm/dl Imaging Data Attestation: I personally reviewed and interpreted this imaging study as follows: My Impression: Chest x-raycardiomegaly with some increased central vascular prominence ECG Data Indication: + weakness Rate (beats per minute): 93 Rhythm: + atrial fibrillation ECG Intervals/blocks: + Normal QRS and + Normal QT ECG [place]: + Normal ECG ST segments: + Normal ST segments ECG Findings: + PVCs Comparison ECG Date: from (04/16/2022) Change: no significant change MDM Narrative This patient comes in as described above. She was placed on a quality assurance monitor room C8. She is here for treatment and evaluation of bilateral lower extremity edema. She has been itching and now the skin is broken and she has clear drainage they are mildly pink if she is afebrile. The failure of her tells me that she does not want to stay in the hospital. I did do sepsis/cardiac type work-up including labs chest x-ray and EKG. She was reassessed. EKG shows A- fib which is baseline she does have some PVCs but no change compared to old. White count was elevated at 15 and lactic is mildly elevated 2.3 in light of this I did give her Rocephin 2 g IV. With concern for CHF, I did not give her IV fluid boluses as she has a history of CHF and clinically looks fluid overloaded. Her creatinine is mildly elevated 1.4 which was up compared to last time however this looks about her baseline as it goes up and down. No other significant acute electrolyte or metabolic abnormalities. She did have a chest x-ray. I talked to the patient at length do think she needs to be admitted to the hospital given her high white count as well as her elevated lactic acid and concern for cellulitis there is probably CHF component as well. Chest x-ray shows cardiomegaly there may be mild CHF component as well. BNP was also elevated. I talked to the patient at length she does not want to stay in the hospital but did agree to at least stay overnight I think this is a good idea because I am concerned she is a high white count elevated lactic acid. I talked her at length with her family member there is well. I have counsulted Dr. Blanchard and discussed case with him and he will see in the ER for these measures Continuous quality assurance monitor: Orders placed in EMR for continuous quality assurance monitor: Following interpretation patient was noted to be in A-fib with a rate controlled rate of 90 Impression & Plan Bilateral leg edema, A-fib, Current use of continuous churn buttermaker anticoagulation, Bilateral cellulitis of lower leg, Elevated lactic acid level Discharge Plan Visit Data Chief Complaint: Skin Problem Stated Complaint: ?CELLULITIS, LEG INJURY DISCHARGE ED Provider: Jian Guevara Discharge Problem: Bilateral leg edema, A-fib, Current use of skilled nursing anticoagulation, Bilateral cellulitis of lower leg, Elevated lactic acid level Forms Stand Alone Forms: My [facility] Prescriptions Prescriptions: No Action fluticasone propionate 50 mcg/actuation spray,suspension 2 spry intranasal DAILY PRN (Reason: Congestion) nystatin 100,000 unit/gram cream 1 applic topical BID PRN (Reason: Skin Irritation) Patient Comments: Daughter stated it has been probably a month since using but a new yeast spot developed and it will be used later today. (10/25/18) polyethylene glycol 3350 [Miralax] 17 gram/dose Powder 17 g PO DAILY PRN (Reason: SEVERE CONSTIPATION) Rx Instructions: take with 8 oz water or juice acetaminophen 650 mg Tablet Extended Release 650 mg PO Q6H PRN (Reason: pain/fever) atorvastatin 10 mg tablet 10 mg PO HS clopidogrel 75 mg tablet 75 mg PO QAM levothyroxine 25 mcg tablet 25 mcg PO QAM Rx Instructions: TAKE THIS MEDICATION ONCE DAILY 30 MINUTES BEFORE BREAKFAST OR ANY OTHER MEDICATION pantoprazole 40 mg tablet,delayed release (DR/EC) 40 mg PO QAM albuterol sulfate 2.5 mg /3 mL (0.083 %) Solution For Nebulization 2.5 mg INHALATION DIRECTED PRN (Reason: Wheezing) cyanocobalamin (vitamin B-12) [Vitamin B-12] 1,000 mcg Tablet 1,000 mcg PO DAILY docusate sodium [Stool Softener] 100 mg Capsule 100 mg PO BID PRN (Reason: Constipation) nystatin 100,000 unit/gram Powder 1 applic TOPICAL TID PRN (Reason: Skin Irritation) torsemide 20 mg tablet See Rx Instructions .ROUTE .COMPLEX Rx Instructions: TAKES 40 MG QAM, THEN 20 MG Q AFTERNOON. metoprolol tartrate 100 mg tablet 100 mg PO BID spironolactone 25 mg tablet 12.5 mg PO QAM multivitamin Tablet 1 tab PO DAILY Eliquis 5 mg tablet 5 mg PO BID Referrals Referrals: Ketan Jacob MD [Primary Care Provider] - Discharge Problem: A-fib Qualifiers: Atrial fibrillation type: persistent (not longstanding) Qualified Code(s): I 48.19 - Other persistent atrial fibrillation
[2022-12-31 23:10] LABS: Basophils # (auto) 0.08 K/uL (0.00-0.20); Basophils % (auto) 0.5 %; Eosinophils # (auto) 0.42 K/uL (0.00-0.50); Eosinophils % (auto) 2.7 %; Hematocrit (blood only) 38.2 % (37.0-47.0); Hemoglobin 11.9 g/dl (12.0-16.0); Immature Granulocytes # (auto) 0.13 K/uL (0.01-0.20); Immature Granulocytes % (auto) 0.8 %; Lymphocytes # (auto) 1.15 K/uL (1.20-3.40); Lymphocytes % (auto) 7.5 %; Mean Corpuscular Hemoglobin 25.5 pg (25.0-34.0); Mean Corpuscular Hgb Conc 31.2 g/dL (32.0-36.0); Mean Corpuscular Volume 81.8 fL (80.0-100.0); Mean Platelet Volume 9.9 fL (9.4-12.4); Monocytes # (auto) 1.34 K/uL (0.11-0.59); Monocytes % (auto) 8.8 %; Neutrophils # (auto) 12.19 K/uL (1.40-6.50); Neutrophils % (auto) 79.7 %; Platelet Count 362 K/uL (130-400); RDW Coefficient of Variation 16.4 % (11.5-14.5); Red Blood Count 4.67 M/uL (4.20-5.40); White Blood Count 15.31 K/ul (4.8-10.8)
[2022-12-31] MEDS ORDERED: cefTRIAXone SODIUM 2,000 MG/50 ML BAG IV STA (23:16)
[2022-12-31 23:26] LABS: Alanine Aminotransferase 10 U/L (7-52); Albumin Level 3.3 gm/dl (3.4-5.0); Alkaline Phosphatase 123 U/L (34-104); Anion Gap 7 (3-11); Aspartate Aminotransferase 18 U/L (13-39); BUN Creatinine Ratio 12.2 (10-20); Bilirubin Direct 0.2 mg/dl (0-0.2); Bilirubin,Total 0.6 mg/dl (0.2-1.0); Blood Urea Nitrogen 18 mg/dl (6-23); Calcium 8.5 mg/dl (8.6-10.3); Carbon Dioxide 35 mmol/L (21-32); Chloride 93 mmol/L (98-107); Est GFR (Non-African American) 31.1 ml/min; Glucose 142 mg/dl (70-99(Fasting)); Magnesium 1.5 mg/dl (1.7-2.4); Potassium 4.1 mmol/L (3.5-5.1); Sodium 135 mmol/L (136-145); Total Protein 7.8 gm/dl (6.0-8.3)
--- NOTE | 2023-01-01 01:34 | History & Physical Report ---
Date of Service January 01, 2023 Assessment & Plan (1) Bilateral cellulitis of lower leg: Plan: 87-year-old female past med history significant for hypothyroidism, hyperlipidemia, prediabetes, chronic diastolic CHF history of occlusion of common femoral artery, permanent atrial fibrillation, CVA, CKD stage III, GERD, vitamin B12 deficiency, bilateral lower extremity edema, depression due to dementia, mild dementia, who lives at home with granddaughter in law and ambulates short distance with walker was brought in by granddaughter in law because of wounds in the lower extremities and also some confusion. Bilateral lower extremity cellulitis Chronic bilateral lower extremity edema As per the grand daughter in law patient scratches her legs Received Rocephin in the ER which will be continued Lactic acid is 2.3 on presentation. 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 On Eliquis and Plavix History of A-fib On metoprolol and Plavix History of CVA On statin and Plavix and Eliquis Hypothyroidism On Synthyroid GERD On Protonix CKD stage III Baseline creatinine 1.3-1.5 Presented creatinine 1.4 Will follow the labs DVT prophylaxis On Eliquis Disposition Med/telemetry Full code History of Present Illness Chief Complaint: Bilateral lower extremity cellulitis Primary Care Provider: Ketan Jacob MD 87-year-old female past med history significant for hypothyroidism, hyperlipidemia, prediabetes, chronic diastolic CHF, history of occlusion of common femoral artery, permanent atrial fibrillation, CVA, CKD stage III, GERD, vitamin B12 deficiency, bilateral lower extremity edema, depression due to dementia, mild dementia, who lives at home with granddaughter in law and ambulates short distance with walker was brought in by granddaughter in law because of wounds in the lower extremities and also some confusion. The granddaughter in law states the patient scratching her lower extremities and has some wounds and also some seeping from the legs. She has mild dementia but she seems to be more confused than her usual. Appetite is okay. She is eating regular food and swallows okay. No fevers. No complaints of any pain. Patient is very hard of hearing. She states she is doing okay. As per granddaughter there was no recent nausea, vomiting. She has some diarrhea lately. Could not get much history from the patient as she is very hard of hearing and does have dementia and currently somewhat confused as per granddaughter in law. Past medical history. As mentioned above Past surgical history. IR arteriogram right side. Mechanical thrombectomy Social history. No alcohol use. No smoking. No drug use. Family history. Sister has hypertension. Son has hypertension. Allergies Allergy/AdvReac Type Severity Reaction Status Date / Time aspirin Allergy Severe ANAPHYLAXIS, Verified 12/31/22 23:10 SWELLING, (PER [facility]--NAUSEA, VOMITING). Home Medications Medication Instructions Recorded Confirmed Type atorvastatin 10 mg tablet 10 mg PO HS 03/05/18 12/31/22 History clopidogrel 75 mg tablet 75 mg PO QAM 03/05/18 12/31/22 History levothyroxine 25 mcg tablet 25 mcg PO QAM 03/05/18 12/31/22 History pantoprazole 40 mg tablet,delayed 40 mg PO QAM 03/05/18 12/31/22 History release fluticasone propionate 50 2 spry intranasal DAILY PRN 05/09/18 12/31/22 History mcg/actuation nasal Congestion spray,suspension nystatin 100,000 unit/gram topical 1 applic topical BID PRN Skin 05/09/18 12/31/22 History cream Irritation acetaminophen 650 mg 650 mg PO Q6H PRN pain/fever 11/14/18 12/31/22 History tablet,extended release polyethylene glycol 3350 17 17 g PO DAILY PRN SEVERE 11/14/18 12/31/22 History gram/dose oral powder (Miralax) CONSTIPATION albuterol sulfate 2.5 mg/3 mL 2.5 mg inhalation DIRECTED PRN 11/27/18 12/31/22 History (0.083 %) solution for nebulization Wheezing cyanocobalamin (vitamin B-12) 1,000 mcg PO DAILY 07/08/21 12/31/22 History 1,000 mcg tablet (Vitamin B-12) docusate sodium 100 mg capsule 100 mg PO BID PRN Constipation 07/08/21 12/31/22 History (Stool Softener) nystatin 100,000 unit/gram topical 1 applic topical TID PRN Skin 07/08/21 12/31/22 History powder Irritation apixaban 5 mg tablet (Eliquis) 5 mg PO BID 04/16/22 12/31/22 History multivitamin 1 tab PO DAILY 04/16/22 12/31/22 History metoprolol tartrate 100 mg tablet 100 mg PO BID 12/31/22 12/31/22 History spironolactone 25 mg tablet 12.5 mg PO QAM 12/31/22 12/31/22 History torsemide 20 mg tablet See Rx Instructions .Route .COMPLEX 12/31/22 12/31/22 History Past Med/Surg History Medical History (Updated 01/01/23 @ 00:09 by Vesta Valencia) UTI (urinary tract infection) Cellulitis of right lower extremity NACHO (generalized anxiety disorder) CVA (cerebral vascular accident) Right upper lobe pneumonia Acute cerebrovascular accident Acute CVA (cerebrovascular accident) Cerebrovascular disease Renal lesion Anemia Osteoarthritis Osteoporosis Adjustment reaction with anxiety and depression HTN (hypertension) Dyslipidemia CKD (chronic kidney disease) stage 3, GFR 30-59 ml/min Hypothyroidism Surgical History History of hip surgery left Family History Other Cancer Diabetes Hypertension Kidney disease No significant family history Social History Smoking Status: Unknown if ever smoked Second Hand Exposure: No; Do You Dip or Chew Tobacco: No; Hx Alcohol Use: No Hx Substance Use: No Preferred Language: French 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 Ability: Effective 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 Ability Comment: extreme [place]/poor historian [employer] Required: No Beliefs That Will Affect Care: None marital status: / Current Living Situation: Family Current Living Situation Comment: Lives with Daughter Otto and her family Feels Safe at Home: Yes Assistive Devices: Walker Review of Systems Review of Systems: Unobtainable due to cognitive status Physical Exam Physical Exam: General- Not in distress Head- atraumatic Eyes- PERRL. ENT- oropharynx clear Neck- supple, no JVD. Lungs- clear to auscultation, no wheezing or crackles. Heart- regular rhythm; no murmur, no gallop. Abdomen- normal bowel sounds, soft, nontender, no distension. Extremities- b/l lower extremity edema with erythema and superficial wounds seen. Neuro- alert,and awake.; PERRL, no facial palsy; no dysarthria; obeys simple commands. Results & Data Results & Data Vital Signs (Past 12 Hours) Vital Signs Temp Pulse Pulse Resp BP BP Pulse Ox 01/01/23 00:10 94 H 12 157/79 H 99 01/01/23 00:00 94 H 12 157/79 H 99 12/31/22 23:00 93 H 17 129/55 L 96 12/31/22 22:59 105 H 12/31/22 22:56 100 12/31/22 22:56 98 H 18 129/55 L 100 12/31/22 22:11 36.9 C 91 H 17 137/76 98 O2 Del Method 01/01/23 00:10 Room Air 01/01/23 00:00 Room Air 12/31/22 23:00 Room Air 12/31/22 22:59 12/31/22 22:56 Room Air 12/31/22 22:56 Room Air 12/31/22 22:11 Room Air Diagnostic Findings Laboratory Results WBC 15.31 K/ul (4.8-10.8) H 12/31/22 22:52 RBC 4.67 M/uL (4.20-5.40) 12/31/22 22:52 Hgb 11.9 g/dl (12.0-16.0) L 12/31/22 22:52 Hct 38.2 % (37.0-47.0) 12/31/22 22:52 MCV 81.8 fL (80.0-100.0) 12/31/22 22:52 MCH 25.5 pg (25.0-34.0) 12/31/22 22:52 MCHC 31.2 g/dL (32.0-36.0) L 12/31/22 22:52 RDW Std Deviation 49.0 fL (36.4-46.3) H 12/31/22 22:52 RDW Coeff of Cain 16.4 % (11.5-14.5) H 12/31/22 22:52 Plt Count 362 K/uL (130-400) 12/31/22 22:52 MPV 9.9 fL (9.4-12.4) 12/31/22 22:52 Immature Gran % (Auto) 0.8 % 12/31/22 22:52 Neut % (Auto) 79.7 % 12/31/22 22:52 Lymph % (Auto) 7.5 % 12/31/22 22:52 [place] % (Auto) 8.8 % 12/31/22 22:52 Eos % (Auto) 2.7 % 12/31/22 22:52 Baso % (Auto) 0.5 % 12/31/22 22:52 Neut # (Auto) 12.19 K/uL (1.40-6.50) H 12/31/22 22:52 Lymph # (Auto) 1.15 K/uL (1.20-3.40) L 12/31/22 22:52 [place] # (Auto) 1.34 K/uL (0.11-0.59) H 12/31/22 22:52 Eos # (Auto) 0.42 K/uL (0.00-0.50) 12/31/22 22:52 Baso # (Auto) 0.08 K/uL (0.00-0.20) 12/31/22 22:52 Immature Gran # (Auto) 0.13 K/uL (0.01-0.20) 12/31/22 22:52 Sodium 135 mmol/L (136-145) L 12/31/22 22:52 Potassium 4.1 mmol/L (3.5-5.1) 12/31/22 22:52 Chloride 93 mmol/L (98-107) L 12/31/22 22:52 Carbon Dioxide 35 mmol/L (21-32) H 12/31/22 22:52 Anion Gap 7 (3-11) 12/31/22 22:52 BUN 18 mg/dl (6-23) 12/31/22 22:52 Creatinine 1.48 mg/dl (0.6-1.2) H 12/31/22 22:52 Est Cr Clr Drug Dosing Not Reportable 12/31/22 22:52 Est GFR ( Amer) 36.0 ml/min 12/31/22 22:52 Est GFR (Non-Af Amer) 31.1 ml/min 12/31/22 22:52 BUN/Creatinine Ratio 12.2 (10-20) 12/31/22 22:52 Glucose 142 mg/dl (70-99(Fasting)) H 12/31/22 22:52 Lactate 1.9 mmol/L (0.4-2.0) 01/01/23 00:36 Calcium 8.5 mg/dl (8.6-10.3) L 12/31/22 22:52 Magnesium 1.5 mg/dl (1.7-2.4) L 12/31/22 22:52 Total Bilirubin 0.6 mg/dl (0.2-1.0) 12/31/22 22:52 Direct Bilirubin 0.2 mg/dl (0-0.2) 12/31/22 22:52 AST 18 U/L (13-39) 12/31/22 22:52 ALT 10 U/L (7-52) 12/31/22 22:52 Alkaline Phosphatase 123 U/L (34-104) H 12/31/22 22:52 B-Natriuretic Peptide 349 pg/ml (0-100) H 12/31/22 22:52 Total Protein 7.8 gm/dl (6.0-8.3) 12/31/22 22:52 Albumin 3.3 gm/dl (3.4-5.0) L 12/31/22 22:52 Procalcitonin < 0.05 ng/ml (0-0.5) 12/31/22 22:52 ECG Additional Comments: ECG. A-fib with PVCs at a rate of 93.. Incomplete right bundle branch block. Code Status & VTE Plan VTE Prophylaxis Plan VTE Prophylaxis will be ordered: Yes
[2023-01-01] MEDS ORDERED: POLYETHYLENE (MIRALAX) 17 GM PACK PO PRN ×2 (02:45)
[2023-01-01] MEDS ORDERED: DOCUSATE SODIUM 100 MG CAP PO PRN (02:45)
[2023-01-01] MEDS ORDERED: ALBUTEROL 0.083% NEBU SOLN 3 ML VIAL INH PRN (02:45)
[2023-01-01] MEDS ORDERED: NITROGLYCERIN SL 0.4 MG/TAB TAB SL PRN (02:45)
[2023-01-01] MEDS ORDERED: ACETAMINOPHEN 325 MG TAB PO PRN (02:45)
[2023-01-01] MEDS ORDERED: FLUTICASONE PROPIONATE NA SPR 16 GM BTL PRN (02:45)
[2023-01-01] MEDS: LEVOTHYROXINE SODIUM 25 MCG TABLET PO SCH (07:09)
--- NOTE | 2023-01-01 07:50 | XRay Report ---
XR chest 1V portable HISTORY: Sepsis COMPARISON: Chest 04/16/2022. FINDINGS: The cardiac silhouette remains mildly enlarged. Stable blunting of the left lateral costoph renic sulcus with left basilar linear densities suggesting scarring or subsegmental atelectasis. No n ew focal lung consolidations to suggest a pneumonia. No evidence for pulmonary edema. There are calci fications within the aortic knob. IMPRESSION: No significant change compared to the prior study. No acute process. ACT 112: Negative or not required by law. Electronically signed by: Luis Nelson M.D. 01/01/2023 7:49 AM
--- NOTE | 2023-01-01 08:30 | Electrocardiogram Report ---
Test Reason : Blood Pressure : / mmHG Vent. Rate : 093 BPM Atrial Rate : 000 BPM P-R Int : 000 ms QRS Dur : 092 ms QT Int : 386 ms P-R-T Axes : 000 014 002 degrees QTc Int : 479 ms Atrial fibrillation with premature ventricular or aberrantly conducted complexes Incomplete right bundle branch block Abnormal ECG When compared with ECG of 16-APR-2022 00:29, No significant change was found Confirmed by Eduin Mays ([id number]) on 01/01/2023 8:30:26 AM Referred By: Ketan Jacob Confirmed By:Eduin Mays
[2023-01-01] MEDS: PANTOprazole 40 MG TAB PO SCH (08:48)
[2023-01-01] MEDS: SPIRONOLACTONE 12.5 MG TAB PO SCH (08:48)
[2023-01-01] MEDS: MULTIVITAMIN TAB PO SCH (08:48)
[2023-01-01] MEDS: APIXABAN 5 MG TABLET PO SCH ×2 (08:48→20:20)
[2023-01-01] MEDS: METOPROLOL TARTRATE 100 MG TAB PO SCH ×2 (08:48→20:20)
[2023-01-01] MEDS: CLOPIDOGREL BISULFATE 75 MG TAB PO SCH (08:48)
[2023-01-01] MEDS: CYANOCOBALAMIN (B-12) 500 MCG TABLET PO SCH (08:48)
[2023-01-01] MEDS: DOXYCYCLINE HYCLATE 100 MG CAP PO SCH ×2 (08:50→20:20)
[2023-01-01 08:51] LABS: Basophils # (auto) 0.07 K/uL (0.00-0.20); Basophils % (auto) 0.5 %; Eosinophils % (auto) 2.8 %; Hematocrit (blood only) 32.1 % (37.0-47.0); Hemoglobin 10.3 g/dl (12.0-16.0); Immature Granulocytes # (auto) 0.07 K/uL (0.01-0.20); Immature Granulocytes % (auto) 0.5 %; Lymphocytes # (auto) 1.11 K/uL (1.20-3.40); Lymphocytes % (auto) 7.6 %; Mean Corpuscular Hemoglobin 25.6 pg (25.0-34.0); Mean Corpuscular Hgb Conc 32.1 g/dL (32.0-36.0); Mean Corpuscular Volume 79.7 fL (80.0-100.0); Monocytes # (auto) 1.32 K/uL (0.11-0.59); Monocytes % (auto) 9.1 %; Neutrophils # (auto) 11.57 K/uL (1.40-6.50); Neutrophils % (auto) 79.5 %; Platelet Count 316 K/uL (130-400); RDW Coefficient of Variation 16.6 % (11.5-14.5); RDW Standard Deviation 47.5 fL (36.4-46.3); Red Blood Count 4.03 M/uL (4.20-5.40); White Blood Count 14.54 K/ul (4.8-10.8)
[2023-01-01] MEDS: TORSEMIDE 20 MG TAB PO SCH ×2 (08:53→17:06)
[2023-01-01 09:06] LABS: BUN Creatinine Ratio 12.5 (10-20); Calcium 7.7 mg/dl (8.6-10.3); Creatinine Clr Calc Pharmacy 25.7 ml/min; Est GFR (African American) 42.9 ml/min; Magnesium 1.4 mg/dl (1.7-2.4)
[2023-01-01] MEDS: MAGNESIUM SULFATE / D5W 1 GM/100 ML BAG IV SCH ×2 (12:01→14:01)
--- NOTE | 2023-01-01 12:02 | Hospitalist Progress Note ---
Date of Service January 01, 2023 Assessment & Plan (1) Bilateral cellulitis of lower leg: Plan: 87-year-old female past med history significant for hypothyroidism, hyperlipidemia, prediabetes, chronic diastolic CHF history of occlusion of common femoral artery, permanent atrial fibrillation, CVA, CKD stage III, GERD, vitamin B12 deficiency, bilateral lower extremity edema, depression due to dementia, mild dementia, who lives at home with granddaughter in law and ambulates short distance with walker was brought in by granddaughter in law because of wounds in the lower extremities and also some confusion. Sepsis, POA Bilateral lower extremity cellulitis Chronic bilateral lower extremity edema Metabolic encephalopathy Patient brought to the hospital due to lower extremity wounds and confusion As per the grand daughter in law patient scratches her legs Leukocytosis present. ESR and CRP pending Lactate elevated on admission to 2.3; down trended with IV hydration Continue ceftriaxone and doxycycline Wound care Elevate legs Continue home dose of diuretics (torsemide 40 mg in a.m. 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 It may contain grammatical, syntax or spelling errors. Any formal questions or concerns about the content, text or information contained within the body of this dictation should be directly addressed to the provider for clarification Admission and Anticipated Discharge Date Admission Date: January 01, 2023 Subjective Patient seen and examined at bedside. She is sleepy but easily awake. She is hard of hearing but responds to questions appropriately. She denies any discomfort or pain. Review of Systems Review of Systems: All systems reviewed & are unremarkable except as noted in Subjective Physical Exam Physical Exam: General- Not in distress Head- atraumatic Eyes- PERRL. ENT- oropharynx clear Neck- supple, no JVD. Lungs- clear to auscultation, no wheezing or crackles. Heart- regular rhythm; no murmur, no gallop. Abdomen- normal bowel sounds, soft, nontender, no distension. Extremities- b/l lower extremity swelling with erythema and superficial wounds seen. Neuro- alert,and awake.; PERRL, no facial palsy; no dysarthria; obeys simple commands. Results & Data Results & Data Vital Signs (Past 12 Hours) Vital Signs Temp Pulse Pulse Pulse Resp BP BP 01/01/23 10:40 36.8 C 80 20 111/55 L 01/01/23 08:01 36.7 C 100 H 18 161/67 H 01/01/23 07:26 95 H 01/01/23 07:21 01/01/23 05:58 98 H 01/01/23 03:03 36.8 C 16 155/91 H 01/01/23 02:28 91 H 14 150/60 H 01/01/23 02:00 91 H 14 150/60 H 01/01/23 00:10 94 H 12 157/79 H 01/01/23 00:00 94 H 12 157/79 H Pulse Ox O2 Del Method 01/01/23 10:40 96 Room Air 01/01/23 08:01 98 Room Air 01/01/23 07:26 01/01/23 07:21 Room Air 01/01/23 05:58 01/01/23 03:03 92 Room Air 01/01/23 02:28 98 Room Air 01/01/23 02:00 98 Room Air 01/01/23 00:10 99 Room Air 01/01/23 00:00 99 Room Air Laboratory Results Laboratory Results WBC 14.54 K/ul (4.8-10.8) H 01/01/23 08:24 RBC 4.03 M/uL (4.20-5.40) L 01/01/23 08:24 Hgb 10.3 g/dl (12.0-16.0) L 01/01/23 08:24 Hct 32.1 % (37.0-47.0) L 01/01/23 08:24 MCV 79.7 fL (80.0-100.0) L 01/01/23 08:24 MCH 25.6 pg (25.0-34.0) 01/01/23 08:24 MCHC 32.1 g/dL (32.0-36.0) 01/01/23 08:24 RDW Std Deviation 47.5 fL (36.4-46.3) H 01/01/23 08:24 RDW Coeff of Cain 16.6 % (11.5-14.5) H 01/01/23 08:24 Plt Count 316 K/uL (130-400) 01/01/23 08:24 MPV 10.0 fL (9.4-12.4) 01/01/23 08:24 Immature Gran % (Auto) 0.5 % 01/01/23 08:24 Neut % (Auto) 79.5 % 01/01/23 08:24 Lymph % (Auto) 7.6 % 01/01/23 08:24 [place] % (Auto) 9.1 % 01/01/23 08:24 Eos % (Auto) 2.8 % 01/01/23 08:24 Baso % (Auto) 0.5 % 01/01/23 08:24 Neut # (Auto) 11.57 K/uL (1.40-6.50) H 01/01/23 08:24 Lymph # (Auto) 1.11 K/uL (1.20-3.40) L 01/01/23 08:24 [place] # (Auto) 1.32 K/uL (0.11-0.59) H 01/01/23 08:24 Eos # (Auto) 0.40 K/uL (0.00-0.50) 01/01/23 08:24 Baso # (Auto) 0.07 K/uL (0.00-0.20) 01/01/23 08:24 Immature Gran # (Auto) 0.07 K/uL (0.01-0.20) 01/01/23 08:24 Sodium 138 mmol/L (136-145) 01/01/23 08:24 Potassium 4.0 mmol/L (3.5-5.1) 01/01/23 08:24 Chloride 96 mmol/L (98-107) L 01/01/23 08:24 Carbon Dioxide 37 mmol/L (21-32) H 01/01/23 08:24 Anion Gap 5 (3-11) 01/01/23 08:24 BUN 16 mg/dl (6-23) 01/01/23 08:24 Creatinine 1.28 mg/dl (0.6-1.2) H 01/01/23 08:24 Est Cr Clr Drug Dosing 25.7 ml/min 01/01/23 08:24 Est GFR ( Amer) 42.9 ml/min 01/01/23 08:24 Est GFR (Non-Af Amer) 37.0 ml/min 01/01/23 08:24 BUN/Creatinine Ratio 12.5 (10-20) 01/01/23 08:24 Glucose 119 mg/dl (70-99(Fasting)) H 01/01/23 08:24 Lactate 1.9 mmol/L (0.4-2.0) 01/01/23 00:36 Calcium 7.7 mg/dl (8.6-10.3) L 01/01/23 08:24 Magnesium 1.4 mg/dl (1.7-2.4) L 01/01/23 08:24 Total Bilirubin 0.6 mg/dl (0.2-1.0) 12/31/22 22:52 Direct Bilirubin 0.2 mg/dl (0-0.2) 12/31/22 22:52 AST 18 U/L (13-39) 12/31/22 22:52 ALT 10 U/L (7-52) 12/31/22 22:52 Alkaline Phosphatase 123 U/L (34-104) H 12/31/22 22:52 B-Natriuretic Peptide 349 pg/ml (0-100) H 12/31/22 22:52 Total Protein 7.8 gm/dl (6.0-8.3) 12/31/22 22:52 Albumin 3.3 gm/dl (3.4-5.0) L 12/31/22 22:52 Procalcitonin < 0.05 ng/ml (0-0.5) 12/31/22 22:52 Impressions Chest X-Ray 12/31/22 22:30 XR chest 1V portable HISTORY: Sepsis COMPARISON: Chest 04/16/2022. FINDINGS: The cardiac silhouette remains mildly enlarged. Stable blunting of the left lateral costophrenic sulcus with left basilar linear densities suggesting scarring or subsegmental atelectasis. No new focal lung consolidations to suggest a pneumonia. No evidence for pulmonary edema. There are calcifications within the aortic knob. IMPRESSION: No significant change compared to the prior study. No acute process. ACT 112: Negative or not required by law. Electronically signed by: Luis Nelson M.D. 01/01/2023 7:49 AM
[2023-01-01] MEDS: ATORVASTATIN 10 MG TAB PO SCH (20:20)
[2023-01-01] MEDS: cefTRIAXone SODIUM 2,000 MG in DEXTROSE 5 % MINI-B 50 ML IV SCH (22:28)
[2023-01-02] MEDS: LEVOTHYROXINE SODIUM 25 MCG TABLET PO SCH (05:32)
[2023-01-02] MEDS: TORSEMIDE 20 MG TAB PO SCH ×2 (09:00→17:25)
[2023-01-02] MEDS: DOXYCYCLINE HYCLATE 100 MG CAP PO SCH ×2 (09:00→20:27)
[2023-01-02] MEDS: SPIRONOLACTONE 12.5 MG TAB PO SCH (09:00)
[2023-01-02] MEDS: MULTIVITAMIN TAB PO SCH (09:00)
[2023-01-02] MEDS: PANTOprazole 40 MG TAB PO SCH (09:00)
[2023-01-02] MEDS: CYANOCOBALAMIN (B-12) 500 MCG TABLET PO SCH (09:01)
[2023-01-02] MEDS: CLOPIDOGREL BISULFATE 75 MG TAB PO SCH (09:01)
[2023-01-02] MEDS: APIXABAN 5 MG TABLET PO SCH ×2 (11:00→20:26)
[2023-01-02] MEDS: METOPROLOL TARTRATE 100 MG TAB PO SCH ×2 (11:00→20:27)
--- NOTE | 2023-01-02 13:31 | Hospitalist Progress Note ---
Date of Service January 02, 2023 Assessment & Plan (1) Bilateral cellulitis of lower leg: Plan: 87-year-old female past med history significant for hypothyroidism, hyperlipidemia, prediabetes, chronic diastolic CHF history of occlusion of common femoral artery, permanent atrial fibrillation, CVA, CKD stage III, GERD, vitamin B12 deficiency, bilateral lower extremity edema, depression due to dementia, mild dementia, who lives at home with granddaughter in law and ambulates short distance with walker was brought in by granddaughter in law because of wounds in the lower extremities and also some confusion. Sepsis, POA Bilateral lower extremity cellulitis Chronic bilateral lower extremity edema Metabolic encephalopathy Patient brought to the hospital due to lower extremity wounds and confusion As per the grand daughter in law patient scratches her legs Leukocytosis present on admission ESR normal and CRP elevated Lactate elevated on admission to 2.3; down trended with IV hydration Continue ceftriaxone and doxycycline day 2, plan to treat for at least 7 days. Wound care consult Elevate legs Continue home dose of diuretics (torsemide 40 mg in a.m. 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 On Eliquis and Plavix History of A-fib On metoprolol and Plavix History of CVA On statin and Plavix and Eliquis Hypothyroidism On Synthyroid GERD On Protonix CKD stage III Baseline creatinine 1.3-1.5 Presented creatinine 1.4 Will follow the labs DVT prophylaxis On Eliquis Disposition Med/telemetry Full code Time spent evaluating patient, direct bedside care, chart review, placing ord ers, interpretation of diagnostic studies, discussion with consultants, patient, and family members, as well as other required patient management activities is 50 minutes Please note the above document was generated using voice recognition software. It may contain grammatical, syntax or spelling errors. Any formal questions or concerns about the content, text or information contained within the body of this dictation should be directly addressed to the provider for clarification Admission and Anticipated Discharge Date Admission Date: January 01, 2023 Subjective Patient seen and examined at bedside. Patient is sleepy about a week ago. She reports that she is planned to go home today. Review of Systems Review of Systems: All systems reviewed & are unremarkable except as noted in Subjective Physical Exam Physical Exam: General- Not in distress Head- atraumatic Eyes- PERRL. ENT- oropharynx clear Neck- supple, no JVD. Lungs- clear to auscultation, no wheezing or crackles. Heart- regular rhythm; no murmur, no gallop. Abdomen- normal bowel sounds, soft, nontender, no distension. Extremities- b/l lower extremity swelling with erythema and superficial wounds seen. Neuro- alert,and awake.; PERRL, no facial palsy; no dysarthria; obeys simple commands. Results & Data Results & Data Vital Signs (Past 12 Hours) Vital Signs Temp Pulse Pulse Resp BP Pulse Ox O2 Del Method 01/02/23 12:25 36.8 C 83 18 118/64 96 Room Air 01/02/23 09:10 Room Air 01/02/23 07:44 97 H 01/02/23 07:16 37.0 C 91 H 20 138/73 95 Room Air 01/02/23 03:19 36.6 C 89 18 128/62 96 Room Air Laboratory Results Laboratory Results WBC 14.54 K/ul (4.8-10.8) H 01/01/23 08:24 RBC 4.03 M/uL (4.20-5.40) L 01/01/23 08:24 Hgb 10.3 g/dl (12.0-16.0) L 01/01/23 08:24 Hct 32.1 % (37.0-47.0) L 01/01/23 08:24 MCV 79.7 fL (80.0-100.0) L 01/01/23 08:24 MCH 25.6 pg (25.0-34.0) 01/01/23 08:24 MCHC 32.1 g/dL (32.0-36.0) 01/01/23 08:24 RDW Std Deviation 47.5 fL (36.4-46.3) H 01/01/23 08:24 RDW Coeff of Cain 16.6 % (11.5-14.5) H 01/01/23 08:24 Plt Count 316 K/uL (130-400) 01/01/23 08:24 MPV 10.0 fL (9.4-12.4) 01/01/23 08:24 Immature Gran % (Auto) 0.5 % 01/01/23 08:24 Neut % (Auto) 79.5 % 01/01/23 08:24 Lymph % (Auto) 7.6 % 01/01/23 08:24 [place] % (Auto) 9.1 % 01/01/23 08:24 Eos % (Auto) 2.8 % 01/01/23 08:24 Baso % (Auto) 0.5 % 01/01/23 08:24 Neut # (Auto) 11.57 K/uL (1.40-6.50) H 01/01/23 08:24 Lymph # (Auto) 1.11 K/uL (1.20-3.40) L 01/01/23 08:24 [place] # (Auto) 1.32 K/uL (0.11-0.59) H 01/01/23 08:24 Eos # (Auto) 0.40 K/uL (0.00-0.50) 01/01/23 08:24 Baso # (Auto) 0.07 K/uL (0.00-0.20) 01/01/23 08:24 Immature Gran # (Auto) 0.07 K/uL (0.01-0.20) 01/01/23 08:24 ESR 26 mm/hr (0-30) 01/02/23 05:58 Sodium 138 mmol/L (136-145) 01/01/23 08:24 Potassium 4.0 mmol/L (3.5-5.1) 01/01/23 08:24 Chloride 96 mmol/L (98-107) L 01/01/23 08:24 Carbon Dioxide 37 mmol/L (21-32) H 01/01/23 08:24 Anion Gap 5 (3-11) 01/01/23 08:24 BUN 16 mg/dl (6-23) 01/01/23 08:24 Creatinine 1.28 mg/dl (0.6-1.2) H 01/01/23 08:24 Est Cr Clr Drug Dosing 25.7 ml/min 01/01/23 08:24 Est GFR ( Amer) 42.9 ml/min 01/01/23 08:24 Est GFR (Non-Af Amer) 37.0 ml/min 01/01/23 08:24 BUN/Creatinine Ratio 12.5 (10-20) 01/01/23 08:24 Glucose 119 mg/dl (70-99(Fasting)) H 01/01/23 08:24 Lactate 1.9 mmol/L (0.4-2.0) 01/01/23 00:36 Calcium 7.7 mg/dl (8.6-10.3) L 01/01/23 08:24 Magnesium 1.4 mg/dl (1.7-2.4) L 01/01/23 08:24 Total Bilirubin 0.6 mg/dl (0.2-1.0) 12/31/22 22:52 Direct Bilirubin 0.2 mg/dl (0-0.2) 12/31/22 22:52 AST 18 U/L (13-39) 12/31/22 22:52 ALT 10 U/L (7-52) 12/31/22 22:52 Alkaline Phosphatase 123 U/L (34-104) H 12/31/22 22:52 C-Reactive Protein 4.10 mg/dl (0-0.5) H 01/02/23 05:58 B-Natriuretic Peptide 349 pg/ml (0-100) H 12/31/22 22:52 Total Protein 7.8 gm/dl (6.0-8.3) 12/31/22 22:52 Albumin 3.3 gm/dl (3.4-5.0) L 12/31/22 22:52 Procalcitonin < 0.05 ng/ml (0-0.5) 12/31/22 22:52 Impressions Chest X-Ray 12/31/22 22:30 XR chest 1V portable HISTORY: Sepsis COMPARISON: Chest 04/16/2022. FINDINGS: The cardiac silhouette remains mildly enlarged. Stable blunting of the left lateral costophrenic sulcus with left basilar linear densities suggesting scarring or subsegmental atelectasis. No new focal lung consolidations to suggest a pneumonia. No evidence for pulmonary edema. There are calcifications within the aortic knob. IMPRESSION: No significant change compared to the prior study. No acute process. ACT 112: Negative or not required by law. Electronically signed by: Luis Nelson M.D. 01/01/2023 7:49 AM
[2023-01-02] MEDS: cefTRIAXone SODIUM 2,000 MG in DEXTROSE 5 % MINI-B 50 ML IV SCH (20:26)
[2023-01-02] MEDS: ATORVASTATIN 10 MG TAB PO SCH (20:27)
[2023-01-03] MEDS: LEVOTHYROXINE SODIUM 25 MCG TABLET PO SCH (06:47)
[2023-01-03 06:56] LABS: Basophils # (auto) 0.09 K/uL (0.00-0.20); Basophils % (auto) 0.7 %; Eosinophils # (auto) 0.39 K/uL (0.00-0.50); Eosinophils % (auto) 3.1 %; Hematocrit (blood only) 34.5 % (37.0-47.0); Hemoglobin 10.6 g/dl (12.0-16.0); Immature Granulocytes # (auto) 0.08 K/uL (0.01-0.20); Immature Granulocytes % (auto) 0.6 %; Lymphocytes # (auto) 1.22 K/uL (1.20-3.40); Lymphocytes % (auto) 9.6 %; Mean Corpuscular Hemoglobin 25.1 pg (25.0-34.0); Mean Corpuscular Hgb Conc 30.7 g/dL (32.0-36.0); Mean Corpuscular Volume 81.6 fL (80.0-100.0); Monocytes # (auto) 1.17 K/uL (0.11-0.59); Monocytes % (auto) 9.2 %; Neutrophils % (auto) 76.8 %; Platelet Count 299 K/uL (130-400); RDW Coefficient of Variation 16.5 % (11.5-14.5); RDW Standard Deviation 48.7 fL (36.4-46.3); Red Blood Count 4.23 M/uL (4.20-5.40); White Blood Count 12.75 K/ul (4.8-10.8)
[2023-01-03 07:08] LABS: BUN Creatinine Ratio 14.9 (10-20); Calcium 8.1 mg/dl (8.6-10.3); Creatinine Clr Calc Pharmacy 22.2 ml/min; Est GFR (Non-African American) 31.1 ml/min; Potassium 3.6 mmol/L (3.5-5.1)
[2023-01-03] MEDS: DOXYCYCLINE HYCLATE 100 MG CAP PO SCH (08:03)
[2023-01-03] MEDS: TORSEMIDE 20 MG TAB PO SCH ×2 (08:03→17:40)
[2023-01-03] MEDS: APIXABAN 5 MG TABLET PO SCH ×2 (08:03→21:35)
[2023-01-03] MEDS: PANTOprazole 40 MG TAB PO SCH (08:03)
[2023-01-03] MEDS: SPIRONOLACTONE 12.5 MG TAB PO SCH (08:03)
[2023-01-03] MEDS: METOPROLOL TARTRATE 100 MG TAB PO SCH ×2 (08:03→21:35)
[2023-01-03] MEDS: CYANOCOBALAMIN (B-12) 500 MCG TABLET PO SCH (08:03)
[2023-01-03] MEDS: CLOPIDOGREL BISULFATE 75 MG TAB PO SCH (08:03)
[2023-01-03] MEDS: MULTIVITAMIN TAB PO SCH (08:03)
[2023-01-03] MEDS ORDERED: VANCOMYCIN CONSULT ACTIVE PRN (11:29)
[2023-01-03] MEDS ORDERED: VANCOMYCIN HCL 1,250 MG in SODIUM CHLORIDE 0.9% 500 ML IV ONE (11:29)
[2023-01-03] MEDS ORDERED: VANCOMYCIN HCL 1,750 MG in SODIUM CHLORIDE 0.9% 500 ML IV SCH (12:00)
[2023-01-03] MEDS ORDERED: ARTIFICIAL TEARS OPB PRN (12:33)
--- NOTE | 2023-01-03 12:39 | Hospitalist Progress Note ---
Date of Service January 03, 2023 Assessment & Plan (1) Bilateral cellulitis of lower leg: Plan: 87-year-old female past med history significant for hypothyroidism, hyperlipidemia, prediabetes, chronic diastolic CHF history of occlusion of common femoral artery, permanent atrial fibrillation, CVA, CKD stage III, GERD, vitamin B12 deficiency, bilateral lower extremity edema, depression due to dementia, mild dementia, who lives at home with granddaughter in law and ambulates short distance with walker was brought in by granddaughter in law because of wounds in the lower extremities and also some confusion. Sepsis, POA Bilateral lower extremity cellulitis Chronic bilateral lower extremity edema Metabolic encephalopathy Patient brought to the hospital due to lower extremity wounds and confusion As per the grand daughter in law patient scratches her legs Leukocytosis present on admission ESR normal and CRP elevated Lactate elevated on admission to 2.3; down trended with IV hydration Patient was started on ceftriaxone and Doxy. No significant improvement seen after 2 days of antibiotics. Changed over to vancomycin plus ceftriaxone. Continue wound care Elevate legs Continue home dose of diuretics (torsemide 40 mg in a.m. and 20 mg in p.m.) Confusion Metabolic encephalopathy, resolved Has mild dementia Very hard of hearing Mentation seems to be getting back to baseline Dacryocystitis As per granddaughter, patient has history of blocked tear ducts on her right eye. She was offered surgery as outpatient. Patient declined. 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 Answered questions/queries. Time spent evaluating patient, direct bedside care, chart review, placing orders, interpretation of diagnostic studies, discussion with consultants, patient, and family members, as well as other required patient management activities is 50 minutes Please note the above document was generated using voice recognition software. It may contain grammatical, syntax or spelling errors. Any formal questions or concerns about the content, text or information contained within the body of this dictation should be directly addressed to the provider for clarification Admission and Anticipated Discharge Date Admission Date: January 01, 2023 Subjective Patient seen and examined at bedside. Significant improvement in her bilateral lower extremity. She reports that she is going home today. Review of Systems Review of Systems: All systems reviewed & are unremarkable except as noted in Subjective Physical Exam Physical Exam: General- Not in distress Head- atraumatic Eyes-Dacryocystitis on lower lid of right eye ENT- oropharynx clear Neck- supple, no JVD. Lungs- clear to auscultation, no wheezing or crackles. Heart- regular rhythm; no murmur, no gallop. Abdomen- normal bowel sounds, soft, nontender, no distension. Extremities- b/l lower extremity swelling with erythema and superficial wounds seen. Neuro- alert,and awake.; PERRL, no facial palsy; no dysarthria; obeys simple commands. Results & Data Results & Data Vital Signs (Past 12 Hours) Vital Signs Temp Pulse Pulse Resp BP Pulse Ox O2 Del Method 01/03/23 12:09 36.6 C 81 16 128/70 98 Room Air 01/03/23 07:44 79 01/03/23 07:34 Room Air 01/03/23 07:32 36.7 C 82 17 138/80 96 Room Air Laboratory Results Laboratory Results WBC 12.75 K/ul (4.8-10.8) H 01/03/23 06:26 RBC 4.23 M/uL (4.20-5.40) 01/03/23 06:26 Hgb 10.6 g/dl (12.0-16.0) L 01/03/23 06:26 Hct 34.5 % (37.0-47.0) L 01/03/23 06:26 MCV 81.6 fL (80.0-100.0) 01/03/23 06:26 MCH 25.1 pg (25.0-34.0) 01/03/23 06:26 MCHC 30.7 g/dL (32.0-36.0) L 01/03/23 06:26 RDW Std Deviation 48.7 fL (36.4-46.3) H 01/03/23 06:26 RDW Coeff of Cain 16.5 % (11.5-14.5) H 01/03/23 06:26 Plt Count 299 K/uL (130-400) 01/03/23 06:26 MPV 10.0 fL (9.4-12.4) 01/03/23 06:26 Immature Gran % (Auto) 0.6 % 01/03/23 06:26 Neut % (Auto) 76.8 % 01/03/23 06:26 Lymph % (Auto) 9.6 % 01/03/23 06:26 [place] % (Auto) 9.2 % 01/03/23 06:26 Eos % (Auto) 3.1 % 01/03/23 06:26 Baso % (Auto) 0.7 % 01/03/23 06:26 Neut # (Auto) 9.80 K/uL (1.40-6.50) H 01/03/23 06:26 Lymph # (Auto) 1.22 K/uL (1.20-3.40) 01/03/23 06:26 [place] # (Auto) 1.17 K/uL (0.11-0.59) H 01/03/23 06:26 Eos # (Auto) 0.39 K/uL (0.00-0.50) 01/03/23 06:26 Baso # (Auto) 0.09 K/uL (0.00-0.20) 01/03/23 06:26 Immature Gran # (Auto) 0.08 K/uL (0.01-0.20) 01/03/23 06:26 ESR 26 mm/hr (0-30) 01/02/23 05:58 Sodium 137 mmol/L (136-145) 01/03/23 06:26 Potassium 3.6 mmol/L (3.5-5.1) 01/03/23 06:26 Chloride 96 mmol/L (98-107) L 01/03/23 06:26 Carbon Dioxide 34 mmol/L (21-32) H 01/03/23 06:26 Anion Gap 7 (3-11) 01/03/23 06:26 BUN 22 mg/dl (6-23) 01/03/23 06:26 Creatinine 1.48 mg/dl (0.6-1.2) H 01/03/23 06:26 Est Cr Clr Drug Dosing 22.2 ml/min 01/03/23 06:26 Est GFR ( Amer) 36.0 ml/min 01/03/23 06:26 Est GFR (Non-Af Amer) 31.1 ml/min 01/03/23 06:26 BUN/Creatinine Ratio 14.9 (10-20) 01/03/23 06:26 Glucose 191 mg/dl (70-99(Fasting)) H 01/03/23 06:26 Lactate 1.9 mmol/L (0.4-2.0) 01/01/23 00:36 Calcium 8.1 mg/dl (8.6-10.3) L 01/03/23 06:26 Magnesium 1.4 mg/dl (1.7-2.4) L 01/01/23 08:24 Total Bilirubin 0.6 mg/dl (0.2-1.0) 12/31/22 22:52 Direct Bilirubin 0.2 mg/dl (0-0.2) 12/31/22 22:52 AST 18 U/L (13-39) 12/31/22 22:52 ALT 10 U/L (7-52) 12/31/22 22:52 Alkaline Phosphatase 123 U/L (34-104) H 12/31/22 22:52 C-Reactive Protein 4.10 mg/dl (0-0.5) H 01/02/23 05:58 B-Natriuretic Peptide 349 pg/ml (0-100) H 12/31/22 22:52 Total Protein 7.8 gm/dl (6.0-8.3) 12/31/22 22:52 Albumin 3.3 gm/dl (3.4-5.0) L 12/31/22 22:52 Procalcitonin < 0.05 ng/ml (0-0.5) 12/31/22 22:52 Impressions Chest X-Ray 12/31/22 22:30 XR chest 1V portable HISTORY: Sepsis COMPARISON: Chest 04/16/2022. FINDINGS: The cardiac silhouette remains mildly enlarged. Stable blunting of the left lateral costophrenic sulcus with left basilar linear densities suggesting scarring or subsegmental atelectasis. No new focal lung consolidations to suggest a pneumonia. No evidence for pulmonary edema. There are calcifications within the aortic knob. IMPRESSION: No significant change compared to the prior study. No acute process. ACT 112: Negative or not required by law. Electronically signed by: Luis Nelson M.D. 01/01/2023 7:49 AM
[2023-01-03] MEDS: cefTRIAXone SODIUM 2,000 MG in DEXTROSE 5 % MINI-B 50 ML IV SCH (21:35)
[2023-01-03] MEDS: ATORVASTATIN 10 MG TAB PO SCH (21:35)
[2023-01-04] MEDS: LEVOTHYROXINE SODIUM 25 MCG TABLET PO SCH (06:41)
[2023-01-04] MEDS ORDERED: PNEUMOCOCCAL VACCINE (PCV20) 20-VAL CONJ-DIP CRM/PF 0.5 ML SYR IM ONE (07:30)
[2023-01-04] MEDS ORDERED: INFLUENZA VACCINE HIGH-DOSE (HD-IIV4) PF 65+ 0.7mL SYR IM ONE (07:30)
[2023-01-04 07:51] LABS: BUN Creatinine Ratio 17.7 (10-20); Calcium 7.7 mg/dl (8.6-10.3); Est GFR (African American) 44.6 ml/min; Est GFR (Non-African American) 38.5 ml/min; Potassium 3.5 mmol/L (3.5-5.1)
[2023-01-04] MEDS ORDERED: VANCOMYCIN HCL 1,000 MG in SODIUM CHLORIDE 0.9% 250 ML IV ONE (08:00)
--- NOTE | 2023-01-04 08:49 | Pharmacy Report ---
Pharmacy PK ABX Note - Date of Service January 04, 2023 - Assessment and Plan Assessment 87 year old F receiving empiric vancomycin and ceftriaxone for treatment of bilateral lower extremity cellulitis. Pertinent microbiologic data includes: blood cultures x 2 showing no growth. Unsure of current baseline renal function, but today's SCr seems at/near baseline. Will dose by random level initially given uncertainty. Day # 2 of antimicrobial therapy. Plan Vancomycin * Patient received 1750 mg loading dose of vancomycin on 01/03 * Random level obtained 01/04/23 resulted as 12.7 mcg/mL. * Will give additional 1 g IV x 1 dose of vancomycin today (~15 mg/kg) * Repeat random level ordered for: 01/05/23 Ceftriaxone * 2 g IV q24h - no change Pharmacy will continue to follow and will adjust dose/frequency as necessary. Thank you. Pharmacy has transitioned to AUC monitoring for vancomycin. AUC/AVANI is the preferred PK/PD target and is associated with decreased risk of nephrotoxicity compared to traditional trough targets.
[2023-01-04] MEDS: METOPROLOL TARTRATE 100 MG TAB PO SCH ×2 (08:52→20:48)
[2023-01-04] MEDS: TORSEMIDE 20 MG TAB PO SCH ×2 (08:52→16:38)
[2023-01-04] MEDS: CYANOCOBALAMIN (B-12) 500 MCG TABLET PO SCH (08:53)
[2023-01-04] MEDS: PANTOprazole 40 MG TAB PO SCH (08:53)
[2023-01-04] MEDS: SPIRONOLACTONE 12.5 MG TAB PO SCH (08:53)
[2023-01-04] MEDS: MULTIVITAMIN TAB PO SCH (08:53)
[2023-01-04] MEDS: CLOPIDOGREL BISULFATE 75 MG TAB PO SCH (08:53)
[2023-01-04] MEDS: APIXABAN 5 MG TABLET PO SCH ×2 (08:54→20:47)
--- NOTE | 2023-01-04 13:43 | Hospitalist Progress Note ---
Date of Service January 04, 2023 Assessment & Plan (1) Bilateral cellulitis of lower leg: Plan: 87-year-old female past med history significant for hypothyroidism, hyperlipidemia, prediabetes, chronic diastolic CHF history of occlusion of common femoral artery, permanent atrial fibrillation, CVA, CKD stage III, GERD, vitamin B12 deficiency, bilateral lower extremity edema, depression due to dementia, mild dementia, who lives at home with granddaughter in law and ambulates short distance with walker was brought in by granddaughter in law because of wounds in the lower extremities and also some confusion. Sepsis, POA Bilateral lower extremity cellulitis Chronic bilateral lower extremity edema Metabolic encephalopathy Patient brought to the hospital due to lower extremity wounds and confusion As per the grand daughter in law patient scratches her legs Leukocytosis present on admission ESR normal and CRP elevated Lactate elevated on admission to 2.3; down trended with IV hydration Patient was started on ceftriaxone and Doxy. No significant improvement seen after 2 days of antibiotics. Changed over to vancomycin plus ceftriaxone. Slight improvement noted. Continue wound care Elevate legs Continue home dose of diuretics (torsemide 40 mg in a.m. and 20 mg in p.m.) Confusion Metabolic encephalopathy, resolved Has mild dementia Very hard of hearing Mentation seems to be getting back to baseline Dacryocystitis As per granddaughter, patient has history of blocked tear ducts on her right eye. She was offered surgery as outpatient. Patient declined. 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 She is requiring IV antibiotics. Discharge back home with family support after resolution of medical issues. Discussed with her granddaughter Otto over the phone on 01/03/2023. Answered questions/queries. Time spent evaluating patient, direct bedside care, chart review, placing orders, interpretation of diagnostic studies, discussion with consultants, patient, and family members, as well as other required patient management activities is 50 minutes Please note the above document was generated using voice recognition software. It may contain grammatical, syntax or spelling errors. Any formal questions or concerns about the content, text or information contained within the body of this dictation should be directly addressed to the provider for clarification Admission and Anticipated Discharge Date Admission Date: January 01, 2023 Subjective Patient seen and examined at bedside. She reports that she is going home today. She is hard of hearing but able to answer few questions. Review of Systems Review of Systems: All systems reviewed & are unremarkable except as noted in Subjective Physical Exam Physical Exam: General- Not in distress Head- atraumatic Eyes-Dacryocystitis on lower lid of right eye ENT- oropharynx clear Neck- supple, no JVD. Lungs- clear to auscultation, no wheezing or crackles. Heart- regular rhythm; no murmur, no gallop. Abdomen- normal bowel sounds, soft, nontender, no distension. Extremities- b/l lower extremity swelling with erythema and superficial wounds seen. Neuro- alert,and awake.; PERRL, no facial palsy; no dysarthria; obeys simple commands. Results & Data Results & Data Vital Signs (Past 12 Hours) Vital Signs Temp Pulse Pulse Resp BP Pulse Ox O2 Del Method 01/04/23 11:08 36.8 C 77 18 101/61 99 Room Air 01/04/23 08:01 36.4 C L 71 18 128/64 97 Room Air 01/04/23 08:00 Room Air 01/04/23 07:00 84 01/04/23 03:40 36.4 C L 102 H 16 115/46 L 95 Room Air Laboratory Results Laboratory Results WBC 12.75 K/ul (4.8-10.8) H 01/03/23 06:26 RBC 4.23 M/uL (4.20-5.40) 01/03/23 06:26 Hgb 10.6 g/dl (12.0-16.0) L 01/03/23 06:26 Hct 34.5 % (37.0-47.0) L 01/03/23 06:26 MCV 81.6 fL (80.0-100.0) 01/03/23 06:26 MCH 25.1 pg (25.0-34.0) 01/03/23 06:26 MCHC 30.7 g/dL (32.0-36.0) L 01/03/23 06:26 RDW Std Deviation 48.7 fL (36.4-46.3) H 01/03/23 06:26 RDW Coeff of Cain 16.5 % (11.5-14.5) H 01/03/23 06:26 Plt Count 299 K/uL (130-400) 01/03/23 06:26 MPV 10.0 fL (9.4-12.4) 01/03/23 06:26 Immature Gran % (Auto) 0.6 % 01/03/23 06:26 Neut % (Auto) 76.8 % 01/03/23 06:26 Lymph % (Auto) 9.6 % 01/03/23 06:26 [place] % (Auto) 9.2 % 01/03/23 06:26 Eos % (Auto) 3.1 % 01/03/23 06:26 Baso % (Auto) 0.7 % 01/03/23 06:26 Neut # (Auto) 9.80 K/uL (1.40-6.50) H 01/03/23 06:26 Lymph # (Auto) 1.22 K/uL (1.20-3.40) 01/03/23 06:26 [place] # (Auto) 1.17 K/uL (0.11-0.59) H 01/03/23 06:26 Eos # (Auto) 0.39 K/uL (0.00-0.50) 01/03/23 06:26 Baso # (Auto) 0.09 K/uL (0.00-0.20) 01/03/23 06:26 Immature Gran # (Auto) 0.08 K/uL (0.01-0.20) 01/03/23 06:26 ESR 26 mm/hr (0-30) 01/02/23 05:58 Sodium 141 mmol/L (136-145) 01/04/23 06:15 Potassium 3.5 mmol/L (3.5-5.1) 01/04/23 06:15 Chloride 98 mmol/L (98-107) 01/04/23 06:15 Carbon Dioxide 37 mmol/L (21-32) H 01/04/23 06:15 Anion Gap 6 (3-11) 01/04/23 06:15 BUN 22 mg/dl (6-23) 01/04/23 06:15 Creatinine 1.24 mg/dl (0.6-1.2) H 01/04/23 06:15 Est Cr Clr Drug Dosing 27.0 ml/min 01/04/23 06:15 Est GFR ( Amer) 44.6 ml/min 01/04/23 06:15 Est GFR (Non-Af Amer) 38.5 ml/min 01/04/23 06:15 BUN/Creatinine Ratio 17.7 (10-20) 01/04/23 06:15 Glucose 88 mg/dl (70-99(Fasting)) 01/04/23 06:15 Lactate 1.9 mmol/L (0.4-2.0) 01/01/23 00:36 Calcium 7.7 mg/dl (8.6-10.3) L 01/04/23 06:15 Magnesium 1.4 mg/dl (1.7-2.4) L 01/01/23 08:24 Total Bilirubin 0.6 mg/dl (0.2-1.0) 12/31/22 22:52 Direct Bilirubin 0.2 mg/dl (0-0.2) 12/31/22 22:52 AST 18 U/L (13-39) 12/31/22 22:52 ALT 10 U/L (7-52) 12/31/22 22:52 Alkaline Phosphatase 123 U/L (34-104) H 12/31/22 22:52 C-Reactive Protein 4.10 mg/dl (0-0.5) H 01/02/23 05:58 B-Natriuretic Peptide 349 pg/ml (0-100) H 12/31/22 22:52 Total Protein 7.8 gm/dl (6.0-8.3) 12/31/22 22:52 Albumin 3.3 gm/dl (3.4-5.0) L 12/31/22 22:52 Procalcitonin < 0.05 ng/ml (0-0.5) 12/31/22 22:52 Random Vancomycin 12.7 mcg/ml (10-20) 01/04/23 06:15 Impressions Chest X-Ray 12/31/22 22:30 XR chest 1V portable HISTORY: Sepsis COMPARISON: Chest 04/16/2022. FINDINGS: The cardiac silhouette remains mildly enlarged. Stable blunting of the left lateral costophrenic sulcus with left basilar linear densities suggesting scarring or subsegmental atelectasis. No new focal lung consolidations to suggest a pneumonia. No evidence for pulmonary edema. There are calcifications within the aortic knob. IMPRESSION: No significant change compared to the prior study. No acute process. ACT 112: Negative or not required by law. Electronically signed by: Luis Nelson M.D. 01/01/2023 7:49 AM
[2023-01-04] MEDS: ATORVASTATIN 10 MG TAB PO SCH (20:47)
[2023-01-04] MEDS: cefTRIAXone SODIUM 2,000 MG in DEXTROSE 5 % MINI-B 50 ML IV SCH (20:49)
[2023-01-05] MEDS: LEVOTHYROXINE SODIUM 25 MCG TABLET PO SCH (06:10)
--- NOTE | 2023-01-05 07:24 | Hospitalist Progress Note ---
Date of Service January 05, 2023 Assessment & Plan (1) Bilateral cellulitis of lower leg: Plan: 87-year-old female past med history significant for hypothyroidism, hyperlipidemia, prediabetes, chronic diastolic CHF history of occlusion of common femoral artery, permanent atrial fibrillation, CVA, CKD stage III, GERD, vitamin B12 deficiency, bilateral lower extremity edema, depression due to dementia, mild dementia, who lives at home with granddaughter in law and ambulates short distance with walker was brought in by granddaughter in law because of wounds in the lower extremities and also some confusion. Sepsis, POA Bilateral lower extremity cellulitis Chronic bilateral lower extremity edema Metabolic encephalopathy Patient brought to the hospital due to lower extremity wounds and confusion As per the grand daughter in law patient scratches her legs Leukocytosis present on admission ESR normal and CRP elevated Lactate elevated on admission to 2.3; down trended with IV hydration Patient was started on ceftriaxone and Doxy. No significant improvement seen after 2 days of antibiotics. Changed over to vancomycin plus ceftriaxone. Slight improvement noted. Continue wound care Elevate legs Continue home dose of diuretics (torsemide 40 mg in a.m. and 20 mg in p.m.) Confusion Metabolic encephalopathy, resolved Has mild dementia Very hard of hearing Mentation seems to be getting back to baseline Dacryocystitis As per granddaughter, patient has history of blocked tear ducts on her right eye. She was offered surgery as outpatient. Patient declined. 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 She is requiring IV antibiotics. Discharge back home with family support after resolution of medical issues. Discussed with her granddaughter Otto over the phone on 01/03/2023. Answered questions/queries. Time spent evaluating patient, direct bedside care, chart review, placing orders, interpretation of diagnostic studies, discussion with consultants, patient, and family members, as well as other required patient management activities is 50 minutes Please note the above document was generated using voice recognition software. It may contain grammatical, syntax or spelling errors. Any formal questions or concerns about the content, text or information contained within the body of this dictation should be directly addressed to the provider for clarification Admission and Anticipated Discharge Date Admission Date: January 01, 2023 Results & Data Results & Data Vital Signs (Past 12 Hours) Vital Signs Temp Pulse Pulse Resp BP Pulse Ox O2 Del Method 01/05/23 03:24 36.8 C 99 H 14 105/48 L 95 Room Air 01/04/23 23:35 36.8 C 69 16 128/71 98 Room Air 01/04/23 21:54 100 H 01/04/23 20:00 Room Air 01/04/23 19:44 36.4 C L 92 H 14 125/45 L 98 Room Air Laboratory Results [facility] 01/04/23 06:15 Sodium 141 Potassium 3.5 Chloride 98 Carbon Dioxide 37 H BUN 22 Creatinine 1.24 H Glucose 88 Calcium 7.7 L Medications Administered Current Inpatient Medications Acetaminophen (Acetaminophen 325 Mg Tab) 650 mg PO Q4H PRN PRN Reason: Pain or Fever Stop: 01/31/23 02:44 Last Admin: 01/03/23 21:35 Dose: 650 mg Albuterol (Albuterol 0.083% Nebu Soln 3 Ml Vial) 2.5 mg INH Q6H PRN; Protocol PRN Reason: Wheezing Stop: 01/31/23 02:44 Apixaban (Apixaban 5 Mg Tablet) 5 mg PO BID CURLY Stop: 01/31/23 08:59 Last Admin: 01/04/23 20:47 Dose: 5 mg Artificial Tears (Artificial Tears) 1 drops OPB QID PRN PRN Reason: Dryness Stop: 02/02/23 12:32 Atorvastatin Calcium (Atorvastatin 10 Mg Tab) 10 mg PO HS CURLY Stop: 01/31/23 20:59 Last Admin: 01/04/23 20:47 Dose: 10 mg Clopidogrel Bisulfate (Clopidogrel Bisulfate 75 Mg Tab) 75 mg PO QAM CURLY Stop: 01/31/23 08:59 Last Admin: 01/04/23 08:53 Dose: 75 mg Cyanocobalamin (Cyanocobalamin (B-12) 500 Mcg Tablet) 1,000 mcg PO DAILY CURLY Stop: 01/31/23 08:59 Last Admin: 01/04/23 08:53 Dose: 1,000 mcg Docusate Sodium (Docusate Sodium 100 Mg Cap) 100 mg PO BID PRN PRN Reason: Constipation Stop: 01/31/23 02:44 Fluticasone Propionate (Fluticasone Propionate Na Spr 16 Gm Btl) 2 sprays NA DAILY PRN PRN Reason: Congestion Stop: 01/31/23 02:44 Ceftriaxone Sodium 2,000 mg/ (Dextrose) 50 mls @ 100 mls/hr IV Q24H COUNTS INCLUDE 234 BEDS AT THE [facility]; Protocol Stop: 01/08/23 21:59 Last Infusion: 01/04/23 22:28 Dose: Infused Levothyroxine Sodium (Levothyroxine Sodium 25 Mcg Tablet) 25 mcg PO DAILYBB COUNTS INCLUDE 234 BEDS AT THE [facility] Stop: 01/31/23 06:29 Last Admin: 01/05/23 06:10 Dose: 25 mcg Metoprolol Tartrate (Metoprolol Tartrate 100 Mg Tab) 100 mg PO BID COUNTS INCLUDE 234 BEDS AT THE [facility] Stop: 01/31/23 08:59 Last Admin: 01/04/23 20:48 Dose: 100 mg Miscellaneous Information (Vancomycin Consult Active) 1 each N/A UD PRN PRN Reason: Consult Stop: 02/02/23 11:28 Multivitamins (Multivitamin Tab) 1 tab PO DAILY COUNTS INCLUDE 234 BEDS AT THE [facility] Stop: 01/31/23 08:59 Last Admin: 01/04/23 08:53 Dose: 1 tab Nitroglycerin (Nitroglycerin Sl 0.4 Mg/Tab Tab) 0.4 mg SL Q5M PRN PRN Reason: Chest Pain Stop: 01/31/23 02:44 Pantoprazole Sodium (Pantoprazole 40 Mg Tab) 40 mg PO QAM COUNTS INCLUDE 234 BEDS AT THE [facility] Stop: 01/31/23 08:59 Last Admin: 01/04/23 08:53 Dose: 40 mg Polyethylene Glycol (Polyethylene (Miralax) 17 Gm Pack) 17 gm PO DAILY PRN PRN Reason: Constipation Stop: 01/31/23 02:44 Spironolactone (Spironolactone 12.5 Mg Tab) 12.5 mg PO QAM COUNTS INCLUDE 234 BEDS AT THE [facility] Stop: 01/31/23 08:59 Last Admin: 01/04/23 08:53 Dose: 12.5 mg Torsemide (Torsemide 20 Mg Tab) 40 mg PO QAM COUNTS INCLUDE 234 BEDS AT THE [facility] Stop: 01/31/23 08:59 Last Admin: 01/04/23 08:52 Dose: 40 mg Torsemide (Torsemide 20 Mg Tab) 20 mg PO DAILY@1700 COUNTS INCLUDE 234 BEDS AT THE [facility] Stop: 01/31/23 16:59 Last Admin: 01/04/23 16:38 Dose: 20 mg
[2023-01-05 08:20] LABS: BUN Creatinine Ratio 19.3 (10-20); Calcium 7.9 mg/dl (8.6-10.3); Creatinine Clr Calc Pharmacy 30.5 ml/min; Est GFR (African American) 52.1 ml/min; Potassium 3.4 mmol/L (3.5-5.1)
--- NOTE | 2023-01-05 08:29 | Pharmacy Report ---
Pharmacy PK ABX Note - Date of Service January 05, 2023 - Assessment and Plan Assessment 87 year old F receiving empiric vancomycin and ceftriaxone for treatment of bilateral lower extremity cellulitis. Pertinent microbiologic data includes: blood cultures x 2 showing no growth at 48 hours. Unsure of current baseline renal function, but continued improvement today. SCr seems at/near baseline. Day # 3 of antimicrobial therapy. Plan Vancomycin * Received 1750 mg IV x 1 on 01/03 and 1 g IV x 1 on 01/04 @~08 * Random level obtained 01/05/23 resulted as 14.4 mcg/mL. * Will dose vancomycin at 750 mg IV q24h * Predicted AUC at steady state: 497 mg/L.hr * Will repeat level in the next 48-72 hours if therapy is continued and/or change in patient clinical status Ceftriaxone * 2 g IV q24h - no change Pharmacy will continue to follow and will adjust dose/frequency as necessary. Thank you. Pharmacy has transitioned to AUC monitoring for vancomycin. AUC/AVANI is the preferred PK/PD target and is associated with decreased risk of nephrotoxicity compared to traditional trough targets.
[2023-01-05] MEDS ORDERED: VANCOMYCIN HCL 750 MG in SODIUM CHLORIDE 0.9% 250 ML IV SCH (09:00)
[2023-01-05] MEDS: CYANOCOBALAMIN (B-12) 500 MCG TABLET PO SCH (10:08)
[2023-01-05] MEDS: TORSEMIDE 20 MG TAB PO SCH (10:09)
[2023-01-05] MEDS: SPIRONOLACTONE 12.5 MG TAB PO SCH (10:10)
[2023-01-05] MEDS: MULTIVITAMIN TAB PO SCH (10:10)
[2023-01-05] MEDS: APIXABAN 5 MG TABLET PO SCH (10:10)
[2023-01-05] MEDS: METOPROLOL TARTRATE 100 MG TAB PO SCH (10:10)
[2023-01-05] MEDS: CLOPIDOGREL BISULFATE 75 MG TAB PO SCH (10:10)
[2023-01-05] MEDS: PANTOprazole 40 MG TAB PO SCH (10:11)
--- NOTE | 2023-01-05 14:38 | Discharge Summary ---
Discharge Summary Date of Service January 05, 2023 Admission HPI Per Admitting Provider 87-year-old female past med history significant for hypothyroidism, hyperlipidemia, prediabetes, chronic diastolic CHF, history of occlusion of common femoral artery, permanent atrial fibrillation, CVA, CKD stage III, GERD, vitamin B12 deficiency, bilateral lower extremity edema, depression due to dementia, mild dementia, who lives at home with granddaughter in law and ambulates short distance with walker was brought in by granddaughter in law because of wounds in the lower extremities and also some confusion. The granddaughter in law states the patient scratching her lower extremities and has some wounds and also some seeping from the legs. She has mild dementia but she seems to be more confused than her usual. Appetite is okay. She is eating regular food and swallows okay. No fevers. No complaints of any pain. Patient is very hard of hearing. She states she is doing okay. As per granddaughter there was no recent nausea, vomiting. She has some diarrhea lately. Could not get much history from the patient as she is very hard of hearing and does have dementia and currently somewhat confused as per granddaughter in law. Past medical history. As mentioned above Past surgical history. IR arteriogram right side. Mechanical thrombectomy Social history. No alcohol use. No smoking. No drug use. Family history. Sister has hypertension. Son has hypertension. Principal Dx & Hospital Course #1 = Principal Diagnosis Updated Medication List Medication Instructions Recorded Confirmed Type atorvastatin 10 mg tablet 10 mg PO HS 03/05/18 12/31/22 History clopidogrel 75 mg tablet 75 mg PO QAM 03/05/18 12/31/22 History levothyroxine 25 mcg tablet 25 mcg PO QAM 03/05/18 12/31/22 History pantoprazole 40 mg tablet,delayed 40 mg PO QAM 03/05/18 12/31/22 History release fluticasone propionate 50 2 spry intranasal DAILY PRN 05/09/18 12/31/22 History mcg/actuation nasal Congestion spray,suspension nystatin 100,000 unit/gram topical 1 applic topical BID PRN Skin 05/09/18 12/31/22 History cream Irritation acetaminophen 650 mg 650 mg PO Q6H PRN pain/fever 11/14/18 12/31/22 History tablet,extended release polyethylene glycol 3350 17 17 g PO DAILY PRN SEVERE 11/14/18 12/31/22 History gram/dose oral powder (Miralax) CONSTIPATION albuterol sulfate 2.5 mg/3 mL 2.5 mg inhalation DIRECTED PRN 11/27/18 12/31/22 History (0.083 %) solution for nebulization Wheezing cyanocobalamin (vitamin B-12) 1,000 mcg PO DAILY 07/08/21 12/31/22 History 1,000 mcg tablet (Vitamin B-12) docusate sodium 100 mg capsule 100 mg PO BID PRN Constipation 07/08/21 12/31/22 History (Stool Softener) nystatin 100,000 unit/gram topical 1 applic topical TID PRN Skin 07/08/21 12/31/22 History powder Irritation apixaban 5 mg tablet (Eliquis) 5 mg PO BID 04/16/22 12/31/22 History multivitamin 1 tab PO DAILY 04/16/22 12/31/22 History metoprolol tartrate 100 mg tablet 100 mg PO BID 12/31/22 12/31/22 History spironolactone 25 mg tablet 12.5 mg PO QAM 12/31/22 12/31/22 History torsemide 20 mg tablet See Rx Instructions .Route .COMPLEX 12/31/22 12/31/22 History cefadroxil 500 mg capsule 500 mg PO DAILY #7 caps 01/05/23 Rx doxycycline hyclate 100 mg capsule 100 mg PO BID #14 caps 01/05/23 Rx magnesium oxide 400 mg PO DAILY 01/05/23 01/05/23 History Hospital Stay Data Consultations 12/31/22 23:52 ED Decision to Admit Stat Pending Results Patient Have Any Pending Studies at Discharge: No Discharge Instructions Given to Patient (Per Discharging Provider) Please take all medications as instructed on medication list below. Please followup with your primary care physician within a week of discharge from the hospital to ensure your legs are continuing to heal without issue. Please continue the antibiotics through to completion unless you develop a side effect in which case, please seek medical attention as appropriate. Please avoid scratching this area to allow good wound healing and avoid reinfection. Reinfection is very possible with ongoing lower leg swelling, which disrupts the lymphatic architecture over time. Please consider referral to a local wound care clinic for management of your skin in this area. Another consideration would be an outpatient referral to see a plain clothes police officer for nail care and care of your lower legs, also. CINDY nunes (compression stockings) may also be considered. It was a pleasure taking care of you! Please call if you have any questions or problems. You can reach a [facility] hours a day by calling [phone]. Take care of yourself. Wendi Lee, DO [facility] Center[facility]
== END 2023-01-05 16:46 | disposition home or self-care (01) | DRG 871 ==
LOC: ED 22:09 → 2N 01-01 01:22 → SUATTDRO 01-01 01:22 → 2N 01-01 02:28

== ENCOUNTER 2023-06-29 17:02 | Inpatient (IN) ==
--- NOTE | 2023-06-29 17:51 | Emergency Department Note ---
Impression & Plan Aspiration pneumonia, Atrial fibrillation with rapid ventricular response, Hypoxia ED Provider Note NAME: ROBERT HUGHES AGE: 87 SEX: F : 1935 ARRIVES VIA: Ambulance INFORMANT: Patient, the patient's family members ED PROVIDER(S): Prabhu Wagner DO CHIEF COMPLAINT: Vomiting HPI: The patient is an 87-year-old female who presented to the emergency department by ambulance with family members for an evaluation of choking. The patient had a choking episode prior to arrival. She was eating boneless chicken wings. The patient since that time has had difficulty breathing. Her family members are also concerned because she has swelling in her lower legs which is not new for her. She is also having wheezing. They are concerned she may have a urinary tract infection. The patient herself denies having any chest pain or abdominal pain. The family is concerned and thought her abdomen was distended. ROS: See above HPI for pertinent positives & negatives. A total of 10 systems reviewed and were otherwise negative. PAST MEDICAL HISTORY: See Below PAST SURGICAL HISTORY: See Below FAMILY HISTORY: See Below SOCIAL HISTORY: See Below HOME MEDICATIONS: See Below ALLERGIES: See Below VITALS: See Below PHYSICAL EXAMINATION: GENERAL: Patient is awake alert in no acute distress patient is resting comfortably and showing no signs of anxiety EYES: The conjunctivae are clear. The pupils are round and reactive. EARS, NOSE, MOUTH AND THROAT: The nose is without any evidence of any deformity. NECK: The neck is nontender and supple. RESPIRATORY: Diminished breath sounds are noted throughout left greater than right. There is wheezing both upper lung wick. There is mild conversational dyspnea noted. CARDIOVASCULAR: Tachycardic and irregular heart sounds were noted to auscultation. GASTROINTESTINAL: The abdomen is soft. Abdomen is nontender. MUSCULOSKELETAL/EXTREMITIES: There is no evidence of gross deformity full range of motion is noted in the hips and shoulders. SKIN: Pedal edema was noted bilaterally. Chronic venous stasis changes with skin breakdown were noted bilaterally right greater than left. NEUROLOGIC: Patient is awake alert and oriented x3 MEDICAL DECISION MAKING: The patient is an 87-year-old female who presented to the emergency department after a coughing episode. The patient had rapid atrial fibrillation as well as difficulty breathing. She was wheezing. The patient may have aspirated and has signs of right lower lobe infiltrate on chest x-ray. Given the patient's findings as well as her presentation she was cultured and started on IV antibiotics. The patient was reevaluated multiple times. I discussed patient's condition with the on-call [facility] hospitalist. They have agreed to evaluate the patient in the emergency department for further management and disposition. The patient was placed on supplemental oxygen. Triage Nursing notes reviewed. Prior medical records reviewed Vital Signs: reviewed and remarkable for elevated blood pressure tachycardia and hypoxia. Differential diagnosis: Reactive airway disease, pneumonia, pneumothorax, COPD, CHF, infections, cardiac ischemia, pulmonary embolism, musculoskeletal, gastrointestinal, as well as other pathologies. ER treatment provided: See below Diagnostics interpreted by me: ECG: EKG was obtained in the emergency department. My interpretation is rapid atrial fibrillation at 134 bpm. PVCs were noted. Nonspecific ST segment abnormalities noted. This was compared to a tracing from December 31, 2022. No changes were noted. Cardiac Monitoring: An order was placed for continuous cardiac monitoring. The monitor shows a rate of 136 bpm with atrial fibrillation RVR. Laboratory studies: As stated above and show below. Imaging studies: See below. Radiographic imaging was reviewed by myself Consultation(s): I discussed this case with Dr. Blanchard who is on-call for the [facility] group. Past Med/Surg History Problem List (Updated 06/29/23 @ 21:37 by Prabhu Wagner DO) Hypoxia (Acute) (HFpEF) heart failure with preserved ejection fraction History of CVA (cerebrovascular accident) Atrial fibrillation with rapid ventricular response (Acute) Aspiration pneumonia (Acute) Traumatic open wound of right lower leg with delayed healing (Acute) PAD (peripheral artery disease) (Chronic) Abnormal ankle brachial index Chronic venous insufficiency (Chronic) Venous stasis ulcers (Acute) Acute metabolic encephalopathy Elevated lactic acid level (Acute) Bilateral cellulitis of lower leg (Acute) Current use of terminal gauger anticoagulation (Acute) Adult failure to thrive Fluid overload (Acute) Leg swelling (Acute) Ambulatory dysfunction (Acute) Diastolic heart failure Atrial fibrillation with RVR (Acute) CHF (congestive heart failure) (Acute) Diarrhea History of hip surgery (Chronic) left Acute cerebrovascular accident (Acute) Right upper lobe pneumonia (Acute) Hypomagnesemia (Acute) Acute CVA (cerebrovascular accident) Discharge planning issues DVT prophylaxis Stroke-like symptoms Cerebrovascular disease (Chronic) Left arm numbness (Acute) Left arm weakness (Acute) Fever (Acute) Hypothyroidism (Chronic) CKD (chronic kidney disease) stage 3, GFR 30-59 ml/min (Chronic) Dyslipidemia (Chronic) HTN (hypertension) (Chronic) 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) Osteoporosis (Chronic) Osteoarthritis (Chronic) Anemia (Chronic) Renal lesion (Chronic) Medical History S/P arteriogram of extremity History of CVA (cerebrovascular accident) UTI (urinary tract infection) NACHO (generalized anxiety disorder) CVA (cerebral vascular accident) Family History Other Cancer Diabetes Hypertension Kidney disease No significant family history Social History Smoking Status: Never smoker Second Hand Exposure: No; Do You Dip or Chew Tobacco: No; Hx Alcohol Use: No Hx Substance Use: No Preferred Language: Pry[place]in[place] 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 Ability: Effective 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 Ability Comment: extreme NIKOLAI/poor historian Transport Rn Required: No Beliefs That Will Affect Care: None marital status: / Current Living Situation: Family Current Living Situation Comment: Lives with Daughter Otto and her family Feels Safe at Home: Yes Assistive Devices: Bedside Commode, Hospital Bed, Lift Chair and Walker Allergies Allergies Allergy/AdvReac Type Severity Reaction Status Date / Time aspirin Allergy Severe ANAPHYLAXIS, Verified 06/29/23 19:25 SWELLING, (PER [facility]--NAUSEA, VOMITING). Home Meds Home Medications Medication Instructions Recorded Confirmed atorvastatin 10 mg tablet 10 mg PO HS 03/05/18 06/29/23 clopidogrel 75 mg tablet 75 mg PO QAM 03/05/18 06/29/23 levothyroxine 25 mcg tablet 25 mcg PO QAM 03/05/18 06/29/23 pantoprazole 40 mg tablet,delayed 40 mg PO QAM 03/05/18 06/29/23 release fluticasone propionate 50 2 spry intranasal DAILY PRN 05/09/18 06/29/23 mcg/actuation nasal Congestion spray,suspension nystatin 100,000 unit/gram topical 1 applic topical BID PRN Skin 05/09/18 06/29/23 cream Irritation acetaminophen 650 mg 650 mg PO Q6H PRN pain/fever 11/14/18 06/29/23 tablet,extended release polyethylene glycol 3350 17 17 g PO DAILY PRN SEVERE 11/14/18 06/29/23 gram/dose oral powder (Miralax) CONSTIPATION albuterol sulfate 2.5 mg/3 mL 2.5 mg inhalation DIRECTED PRN 11/27/18 06/29/23 (0.083 %) solution for nebulization Wheezing cyanocobalamin (vitamin B-12) 1,000 mcg PO DAILY 07/08/21 06/29/23 1,000 mcg tablet (Vitamin B-12) docusate sodium 100 mg capsule 100 mg PO BID PRN Constipation 07/08/21 06/29/23 (Stool Softener) nystatin 100,000 unit/gram topical 1 applic topical TID PRN Skin 07/08/21 06/29/23 powder Irritation apixaban 5 mg tablet (Eliquis) 5 mg PO BID 04/16/22 06/29/23 multivitamin 1 tab PO DAILY 04/16/22 06/29/23 spironolactone 25 mg tablet 12.5 mg PO QAM 12/31/22 06/29/23 torsemide 20 mg tablet 60 mg PO BID 12/31/22 06/29/23 magnesium oxide 400 mg PO DAILY 01/05/23 06/29/23 metoprolol succinate 100 mg 100 mg PO BID 06/29/23 06/29/23 tablet,extended release 24 hr Results & Data (ED) Vital Signs Vital Signs - 24 hr 06/29/23 17:12 06/29/23 18:01 06/29/23 18:48 Temperature 36.8 C Temperature Source Oral Pulse Rate 132 H 110 H 105 H Pulse Rate [Apical] Pulse Rhythm [Apical] Respiratory Rate 30 H 18 Respiratory Effort / Characteristics Labored Respiratory Depth Retractive Blood Pressure 136/92 Blood Pressure [Right Arm] Blood Pressure Mean 106 Blood Pressure Mean [Right Arm] Pulse Oximetry 94 94 Oxygen Delivery Method Room Air Room Air Oxygen Flow Rate Sepsis New/Unexplained Change in Mental Status Yes Sepsis Action Taken by Nursing Physician Notified 06/29/23 19:00 06/29/23 20:36 06/29/23 20:36 Temperature Temperature Source Pulse Rate Pulse Rate [Apical] 108 H Pulse Rhythm [Apical] Respiratory Rate 18 Respiratory Effort / Characteristics Respiratory Depth Blood Pressure Blood Pressure [Right Arm] 128/75 Blood Pressure Mean Blood Pressure Mean [Right Arm] 92 Pulse Oximetry 89 L 96 Oxygen Delivery Method Room Air Nasal Cannula Oxygen Flow Rate 3 Sepsis New/Unexplained Change in Mental Status Sepsis Action Taken by Nursing 06/29/23 20:51 06/29/23 21:14 06/29/23 21:31 Temperature Temperature Source Pulse Rate 136 H Pulse Rate [Apical] 120 H 152 H Pulse Rhythm [Apical] Irregular Respiratory Rate 27 H 20 Respiratory Effort / Characteristics Respiratory Depth Blood Pressure 154/128 H Blood Pressure [Right Arm] 155/96 H 154/128 H Blood Pressure Mean Blood Pressure Mean [Right Arm] 115 136 Pulse Oximetry 96 91 Oxygen Delivery Method Nasal Cannula Nasal Cannula Oxygen Flow Rate 2 2 Sepsis New/Unexplained Change in Mental Status Sepsis Action Taken by Detention Medications Current Medication List: was personally reviewed by me Laboratory Data Attestation: I reviewed the patient's lab results. 06/29/23 17:35 06/29/23 17:35 Lab Results 06/29/23 06/29/23 Range/Units 17:35 Unknown WBC 15.17 H (4.8-10.8) K/ul RBC 4.11 L (4.20-5.40) M/uL Hgb 9.6 L (12.0-16.0) g/dl Hct 32.3 L (37.0-47.0) % MCV 78.6 L (80.0-100.0) fL MCH 23.4 L (25.0-34.0) pg MCHC 29.7 L (32.0-36.0) g/dL RDW Std Deviation 51.9 H (36.4-46.3) fL RDW Coeff of Cain 18.2 H (11.5-14.5) % Plt Count 333 (130-400) K/uL MPV 10.0 (9.4-12.4) fL Immature Gran % (Auto) 0.7 % Neut % (Auto) 86.9 % Lymph % (Auto) 4.5 % [place] % (Auto) 7.1 % Eos % (Auto) 0.3 % Baso % (Auto) 0.5 % Neut # (Auto) 13.17 H (1.40-6.50) K/uL Lymph # (Auto) 0.69 L (1.20-3.40) K/uL [place] # (Auto) 1.08 H (0.11-0.59) K/uL Eos # (Auto) 0.05 (0.00-0.50) K/uL Baso # (Auto) 0.07 (0.00-0.20) K/uL Immature Gran # (Auto) 0.11 (0.01-0.20) K/uL PT 14.7 H (9.0-12.0) Seconds INR 1.4 H (0.9-1.1) APTT 26 (21-31) Seconds PTT Ratio 1.0 Sodium 137 (136-145) mmol/L Potassium 4.3 (3.5-5.1) mmol/L Chloride 100 (98-107) mmol/L Carbon Dioxide 31 (21-32) mmol/L Anion Gap 6 (3-11) BUN 16 (6-23) mg/dl Creatinine 1.09 (0.6-1.2) mg/dl Est Cr Clr Drug Dosing 29.7 ml/min Est GFR ( Amer) 52.1 ml/min Est GFR (Non-Af Amer) 45.0 ml/min BUN/Creatinine Ratio 14.7 (10-20) Glucose 162 H (70-99(Fasting)) mg/dl Calcium 7.9 L (8.6-10.3) mg/dl Total Bilirubin 0.7 (0.2-1.0) mg/dl AST 26 (13-39) U/L ALT 14 (7-52) U/L Alkaline Phosphatase 104 (34-104) U/L Troponin I High Sens 8.1 (0-14) pg/ml C-Reactive Protein 2.92 H (0-0.5) mg/dl Total Protein 6.9 (6.0-8.3) gm/dl Albumin 3.0 L (3.4-5.0) gm/dl Globulin 3.9 (2.5-4.0) gm/dl Albumin/Globulin Ratio 0.8 L (0.9-2) Lipase 15 (11-82) U/L Procalcitonin 0.04 (0-0.5) ng/ml Urine Color Dark Yellow Urine Appearance Cloudy A (Clear) Urine pH 5.0 (4.5-7.5) Ur Specific [place] 1.021 (1.000-1.030) Urine Protein 1+ H (Negative) Urine Glucose (UA) Negative (Negative) Urine Ketones Negative (Negative) Urine Blood Negative (Negative) Urine Nitrite Negative (Negative) Urine Bilirubin Negative (Negative) Urine Urobilinogen Negative (Negative) Ur Leukocyte Esterase 1+ H (Negative) Urine RBC 0-2 (0-2) /hpf Urine WBC 0-5 (0-5) /hpf Ur Epithelial Cells 3-5 H (0-2) /hpf Calcium Oxalate Crystal Present A (None Prsent) Urine Bacteria None Seen (None Seen) Administered Medications Metoprolol Tartrate (Metoprolol Tartrate 1 Mg/Ml Vial) 2.5 mg IV Q6 PRN PRN Reason: HR >120 Stop: 07/30/23 00:00 Last Admin: 06/29/23 21:31 Dose: 2.5 mg Documented By: NRB Discontinued Medications Diltiazem HCl (Diltiazem Hcl 5 Mg/Ml 5 Ml Vial) 10 mg IV NOW STA Stop: 06/29/23 17:51 Last Admin: 06/29/23 17:57 Dose: 10 mg Documented By: GRACE Co-signed By: KENYA Piperacillin Sod/Tazobactam Sod (Zosyn) 4.5 gm in 100 mls @ 200 mls/hr IV NOW ONE Stop: 06/29/23 18:38 Last Infusion: 06/29/23 20:01 Dose: Infused Documented By: Admin: 06/29/23 19:31 Dose: 200 mls/hr Documented By: DARRYL Metoprolol Succinate (Metoprolol Succ 50mg Ext Rel Tab) 100 mg PO ONE STA Stop: 06/29/23 20:16 Last Admin: 06/29/23 20:53 Dose: 100 mg Documented By: DARRYL Imaging Data Attestation: I personally reviewed and interpreted this imaging study as follows: My Impression: 1 view chest x-ray was obtained in the emergency department. My interpretation is right lower lobe infiltrate, final report below. Radiologist's Impression: Chest X-Ray 06/29/23 17:17 XR chest 1V portable CLINICAL HISTORY: Chest pain, nonspecific COMPARISON STUDY: Chest CT November 28, 2018. Chest radiograph December 31, 2022. FINDINGS: Cardiomegaly is again noted. There is no pneumothorax. There are suspected small bilateral pleural effusions. Bibasilar opacities are present. There is mild interstitial thickening. IMPRESSION: Cardiomegaly. Interstitial thickening suggestive of interstitial pulmonary edema with small bilateral pleural effusions and associated bibasilar opacities. ACT 112: Negative or not required by law. Electronically signed by: Erik Vera M.D. 06/29/2023 6:19 PM Discharge Plan Visit Data Chief Complaint: Choking Stated Complaint: CHOKING, FOOD BOLUS ED Provider: Prabhu Wagner Discharge Problem: Aspiration pneumonia, Atrial fibrillation with rapid ventricular response, Hypoxia Patient Disposition: Being Evaluated by Hospitalist Forms Stand Alone Forms: [facility] Prescriptions Prescriptions: No Action fluticasone propionate 50 mcg/actuation spray,suspension 2 spry intranasal DAILY PRN (Reason: Congestion) nystatin 100,000 unit/gram cream 1 applic topical BID PRN (Reason: Skin Irritation) Patient Comments: Daughter stated it has been probably a month since using but a new yeast spot developed and it will be used later today. (10/25/18) polyethylene glycol 3350 [Miralax] 17 gram/dose Powder 17 g PO DAILY PRN (Reason: SEVERE CONSTIPATION) Rx Instructions: take with 8 oz water or juice acetaminophen 650 mg Tablet Extended Release 650 mg PO Q6H PRN (Reason: pain/fever) atorvastatin 10 mg tablet 10 mg PO HS clopidogrel 75 mg tablet 75 mg PO QAM levothyroxine 25 mcg tablet 25 mcg PO QAM Rx Instructions: TAKE THIS MEDICATION ONCE DAILY 30 MINUTES BEFORE BREAKFAST OR ANY OTHER MEDICATION pantoprazole 40 mg tablet,delayed release (DR/EC) 40 mg PO QAM albuterol sulfate 2.5 mg /3 mL (0.083 %) Solution For Nebulization 2.5 mg INHALATION DIRECTED PRN (Reason: Wheezing) cyanocobalamin (vitamin B-12) [Vitamin B-12] 1,000 mcg Tablet 1,000 mcg PO DAILY docusate sodium [Stool Softener] 100 mg Capsule 100 mg PO BID PRN (Reason: Constipation) nystatin 100,000 unit/gram Powder 1 applic TOPICAL TID PRN (Reason: Skin Irritation) torsemide 20 mg tablet 60 mg PO BID spironolactone 25 mg tablet 12.5 mg PO QAM magnesium oxide 400 mg magnesium tablet 400 mg PO DAILY multivitamin Tablet 1 tab PO DAILY Eliquis 5 mg tablet 5 mg PO BID metoprolol succinate 100 mg tablet extended release 24 hr 100 mg PO BID Referrals Referrals: Ketan Jacob MD [Primary Care Provider] - Discharge Problem: Aspiration pneumonia Qualifiers: Aspiration pneumonia type: unspecified Laterality: right Lung location: u nspecified part of lung Qualified Code(s): J69.0 - Pneumonitis due to inhalation of food and vomit
[2023-06-29] MEDS: dilTIAZem HCl 5 MG/ML 5 ML VIAL IV STA (17:57)
[2023-06-29 18:05] LABS: Basophils # (auto) 0.07 K/uL (0.00-0.20); Basophils % (auto) 0.5 %; Eosinophils # (auto) 0.05 K/uL (0.00-0.50); Eosinophils % (auto) 0.3 %; Hematocrit (blood only) 32.3 % (37.0-47.0); Hemoglobin 9.6 g/dl (12.0-16.0); Immature Granulocytes # (auto) 0.11 K/uL (0.01-0.20); Immature Granulocytes % (auto) 0.7 %; Lymphocytes # (auto) 0.69 K/uL (1.20-3.40); Lymphocytes % (auto) 4.5 %; Mean Corpuscular Hemoglobin 23.4 pg (25.0-34.0); Mean Corpuscular Hgb Conc 29.7 g/dL (32.0-36.0); Mean Corpuscular Volume 78.6 fL (80.0-100.0); Monocytes # (auto) 1.08 K/uL (0.11-0.59); Monocytes % (auto) 7.1 %; Neutrophils # (auto) 13.17 K/uL (1.40-6.50); Neutrophils % (auto) 86.9 %; Platelet Count 333 K/uL (130-400); RDW Coefficient of Variation 18.2 % (11.5-14.5); RDW Standard Deviation 51.9 fL (36.4-46.3); Red Blood Count 4.11 M/uL (4.20-5.40); White Blood Count 15.17 K/ul (4.8-10.8)
--- NOTE | 2023-06-29 18:20 | XRay Report ---
XR chest 1V portable CLINICAL HISTORY: Chest pain, nonspecific COMPARISON STUDY: Chest CT November 28, 2018. Chest radiograph December 31, 2022. FINDINGS: Cardiomegaly is again noted. There is no pneumothorax. There are suspected small bilateral pleural effusions. Bibasilar opacities are present. There is mild interstitial thickening. IMPRESSION: Cardiomegaly. Interstitial thickening suggestive of interstitial pulmonary edema with sm all bilateral pleural effusions and associated bibasilar opacities. ACT 112: Negative or not required by law. Electronically signed by: Erik Vera M.D. 06/29/2023 6:19 PM
[2023-06-29 18:22] LABS: Albumin Globulin Ratio 0.8 (0.9-2); BUN Creatinine Ratio 14.7 (10-20); Bilirubin,Total 0.7 mg/dl (0.2-1.0); Calcium 7.9 mg/dl (8.6-10.3); Creatinine Clr Calc Pharmacy 29.7 ml/min; Est GFR (African American) 52.1 ml/min; Globulin 3.9 gm/dl (2.5-4.0); Potassium 4.3 mmol/L (3.5-5.1); Total Protein 6.9 gm/dl (6.0-8.3)
[2023-06-29 18:28] LABS: Troponin I High Sensitivity 8.1 pg/ml (0-14)
[2023-06-29 18:30] LABS: INR 1.4 (0.9-1.1); Partial Thromboplastin Time 26 Seconds (21-31); Prothrombin Time 14.7 Seconds (9.0-12.0)
[2023-06-29 19:12] LABS: C Reactive Protein 2.92 mg/dl (0-0.5)
[2023-06-29 19:22] LABS: Appearance Urine Cloudy (Clear); Bilirubin Urine Negative (Negative); Blood Urine Negative (Negative); Color Urine Dark Yellow; Glucose Urine UA Negative (Negative); Ketones Urine Negative (Negative); Leukocyte Esterase Urine 1+ (Negative); Nitrite Urine Negative (Negative); Protein Urine 1+ (Negative); Specific Gravity Urine 1.021 (1.000-1.030); Urobilinogen Urine Negative (Negative)
[2023-06-29 19:26] LABS: Bacteria Urine None Seen (None Seen); RBC Urine 0-2 /hpf (0-2); WBC Urine 0-5 /hpf (0-5)
[2023-06-29 19:27] LABS: Calcium Oxalate Crystals Urine Present (None Prsent)
[2023-06-29] MEDS: PIPERACILLIN/TAZOBACTAM 4.5 GM/100 ML BAG IV ONE (19:31)
--- NOTE | 2023-06-29 19:45 | History & Physical Report ---
Date of Service June 29, 2023 Assessment & Plan (1) Aspiration pneumonia: (2) Atrial fibrillation with rapid ventricular response: (3) Current use of halfway anticoagulation: (4) (HFpEF) heart failure with preserved ejection fraction: (5) Traumatic open wound of right lower leg with delayed healing: (6) PAD (peripheral artery disease): (7) Chronic venous insufficiency: (8) Venous stasis ulcers: (9) Hypothyroidism: (10) CKD (chronic kidney disease) stage 3, GFR 30-59 ml/min: (11) Dyslipidemia: (12) HTN (hypertension): (13) History of CVA (cerebrovascular accident): Plan This is a 87-year-old female with PMH of HFpEF, permanent A Fib, history of CVA, hypothyroidism, HLD, prediabetes, CKD III, history of occlusion of common femoral artery, bilateral lower extremity edema, depression, mild dementia who presents from home after a choking incident. Unable to obtain history from patient at bedside due to dementia and hearing impairment. History obtained from granddaughter in- law and grandson over the phone as well as chart review. Aspiration, ? pneumonitis Choking incident at home with boneless wing, feels she passed food bolus but still with wheezing in ED Saturating at 96% on 2 L NC (not on home O2 at baseline) Afebrile, WBC 15k CXR with cardiomegaly. Interstitial thickening suggestive of interstitial pulmonary edema with small bilateral pleural effusions and associated bibasilar opacities Obtaining CT chest for better visualization Given Zosyn in ED - continue for now Routine pulm consult Speech consult Aspiration precautions Atrial fibrillation with RVR Granddaughter mentions elevated HRs around 110 at home this past week Initial EKG with HR 134, given 10mg bolus of diltiazem in ED HR returned to 130s-140s after evening Toprol 100mg dose started on cardizem drip holding po meds until speech evaluation placed on iv heparin. HFpEF Recent saw cardiology and had Torsemide increased to 60mg BID and seems currently on 40mg BID. BLE at baseline Most recent 2D echo from Nov 2022 with EF 50-54%, borderline diffuse left ventricular hypokinesis, mild AV regurg, mild MV regurg, mild tricuspid regurg Continue torsemide, spironolactone for now, monitor volume status closely CT chest for better evaluation Strict I&Os, daily weights if not able to start po meds will place on iv lasix. 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 GERD On Protonix CKD III Cr at baseline 1.09. Follow daily BMP DVT Ppx: IV heparin Code status: DNR/DNI per discussion over phone with ARJUN cole ([phone]) PCP: Nidia Dispo: Admitted to PCU Patient seen in collaboration with Dr. Blanchard. Please see addendum. I spent a total of 85 minutes coordinating, documenting, and providing care for this patient excluding time spent in the performance of separately billed services. History of Present Illness Chief Complaint: choking, aspiration Primary Care Provider: Ketan Jacob MD This is a 87-year-old female with PMH of HFpEF, permanent A Fib, history of CVA, hypothyroidism, HLD, prediabetes, CKD III, history of occlusion of common femoral artery, bilateral lower extremity edema, depression, mild dementia who presents from home after a choking incident. Unable to obtain history from patient at bedside due to dementia and hearing impairment. History obtained from granddaughter in- law and grandson over the phone. Reports that patient was gurgling and coughing up liquid and they called EMS. Since then, she has been breathing heavily. Once the granddaughter met up with her again in the ED, patient told her "I got that meat down" and seemed to be speaking and breathing more comfortably. Does note wheezing, which is not normal for her at rest. Has trouble swallowing pills at home and is given them in applesauce. Denies other choking incidences at home. Daughter thought she got Eliquis down today but is unsure about metoprolol succinate or Plavix. Left back hip has been swelling as well as stomach on right side. Also notes elevated heart rates in the 100s. Has not been complaining of pain. Was due to see PCP tomorrow to evaluate hip. + visual hallucinations seeing children in the yard, which is not a typical feature of her dementia. Leg swelling seems to be at baseline. Has been following with the wound clinic since patient scratches at her legs. Has improved with them wrapping. Recently had Torsemide increased to 60mg BID by [facility] cardiology. Most recent 2D echo from Nov 2022 with EF 50-54%, borderline diffuse left ventricular hypokinesis, mild AV regurg, mild MV regurg, mild tricuspid regurg. Lives at home with granddaughter in law and ambulates short distance with walker. Allergies Allergy/AdvReac Type Severity Reaction Status Date / Time aspirin Allergy Severe ANAPHYLAXIS, Verified 06/29/23 19:25 SWELLING, (PER [facility]--NAUSEA, VOMITING). Home Medications Medication Instructions Recorded Confirmed Type atorvastatin 10 mg tablet 10 mg PO HS 03/05/18 06/29/23 History clopidogrel 75 mg tablet 75 mg PO QAM 03/05/18 06/29/23 History levothyroxine 25 mcg tablet 25 mcg PO QAM 03/05/18 06/29/23 History pantoprazole 40 mg tablet,delayed 40 mg PO QAM 03/05/18 06/29/23 History release fluticasone propionate 50 2 spry intranasal DAILY PRN 05/09/18 06/29/23 History mcg/actuation nasal Congestion spray,suspension nystatin 100,000 unit/gram topical 1 applic topical BID PRN Skin 05/09/18 06/29/23 History cream Irritation acetaminophen 650 mg 650 mg PO Q6H PRN pain/fever 11/14/18 06/29/23 History tablet,extended release polyethylene glycol 3350 17 17 g PO DAILY PRN SEVERE 11/14/18 06/29/23 History gram/dose oral powder (Miralax) CONSTIPATION albuterol sulfate 2.5 mg/3 mL 2.5 mg inhalation DIRECTED PRN 11/27/18 06/29/23 History (0.083 %) solution for nebulization Wheezing cyanocobalamin (vitamin B-12) 1,000 mcg PO DAILY 07/08/21 06/29/23 History 1,000 mcg tablet (Vitamin B-12) docusate sodium 100 mg capsule 100 mg PO BID PRN Constipation 07/08/21 06/29/23 History (Stool Softener) nystatin 100,000 unit/gram topical 1 applic topical TID PRN Skin 07/08/21 06/29/23 History powder Irritation apixaban 5 mg tablet (Eliquis) 5 mg PO BID 04/16/22 06/29/23 History multivitamin 1 tab PO DAILY 04/16/22 06/29/23 History spironolactone 25 mg tablet 12.5 mg PO QAM 12/31/22 06/29/23 History torsemide 20 mg tablet 60 mg PO BID 12/31/22 06/29/23 History magnesium oxide 400 mg PO DAILY 01/05/23 06/29/23 History metoprolol succinate 100 mg 100 mg PO BID 06/29/23 06/29/23 History tablet,extended release 24 hr Past Med/Surg History Problem List (Updated 06/30/23 @ 00:08 by Vesta Valencia) Hypoxia (Acute) (HFpEF) heart failure with preserved ejection fraction History of CVA (cerebrovascular accident) Atrial fibrillation with rapid ventricular response (Acute) Aspiration pneumonia (Acute) Traumatic open wound of right lower leg with delayed healing (Acute) PAD (peripheral artery disease) (Chronic) Abnormal ankle brachial index Chronic venous insufficiency (Chronic) Venous stasis ulcers (Acute) Acute metabolic encephalopathy Elevated lactic acid level (Acute) Bilateral cellulitis of lower leg (Acute) Current use of halfway anticoagulation (Acute) Adult failure to thrive Fluid overload (Acute) Leg swelling (Acute) Ambulatory dysfunction (Acute) Diastolic heart failure Atrial fibrillation with RVR (Acute) CHF (congestive heart failure) (Acute) Diarrhea History of hip surgery (Chronic) left Acute cerebrovascular accident (Acute) Right upper lobe pneumonia (Acute) Hypomagnesemia (Acute) Acute CVA (cerebrovascular accident) Discharge planning issues DVT prophylaxis Stroke-like symptoms Cerebrovascular disease (Chronic) Left arm numbness (Acute) Left arm weakness (Acute) Fever (Acute) Hypothyroidism (Chronic) CKD (chronic kidney disease) stage 3, GFR 30-59 ml/min (Chronic) Dyslipidemia (Chronic) HTN (hypertension) (Chronic) 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) Osteoporosis (Chronic) Osteoarthritis (Chronic) Anemia (Chronic) Renal lesion (Chronic) Medical History S/P arteriogram of extremity History of CVA (cerebrovascular accident) UTI (urinary tract infection) NACHO (generalized anxiety disorder) CVA (cerebral vascular accident) Family History Other Cancer Diabetes Hypertension Kidney disease No significant family history Social History Smoking Status: Never smoker Second Hand Exposure: No; Do You Dip or Chew Tobacco: No; Hx Alcohol Use: No Hx Substance Use: No Preferred Language: Bol[place]ian 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 Ability: Effective 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 Ability Comment: extreme [place]/poor 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: Voice Beliefs That Will Affect Care: None marital status: / Current Living Situation: Family Current Living Situation Comment: Lives with Daughter Otto and her family Feels Safe at Home: Yes Assistive Devices: Bedside Commode, Hospital Bed, Lift Chair and Walker Review of Systems Review of Systems: Unobtainable due to cognitive status Physical Exam Physical Exam: General Appearance: WD/WN, vitals as above, NAD, sitting up in bed, pleasantly confused, conversing with some effort Head: normocephalic, atraumatic Eyes: normal inspection, PERRL, conjunctivae normal, anicteric sclerae ENT: external ear and nose normal, oropharynx normal Neck: normal visual inspection Respiratory: increased respiratory effort, diminished lung sounds bilaterally, wheezing upper lung wick bilaterally Cardiovascular: irregular rate & rhythm, no murmur, + BLE edema. Vessels: no JVD Chest: normal inspection of chest Abdomen/GI: normal bowel sounds, soft, nontender, no hepatosplenomegaly Extremities/Musculoskeletal: BLE edema with chronic venous stasis changes R>L, legs wrapped, no cyanosis or clubbing, extremities motor strength 5/5 Neurologic: PERRL, EOMI, CN's II-XI intact bilaterally and moves all extremities Psychiatric: A+Ox person only Skin: no rashes, normal color, warm/dry Results & Data Results & Data Vital Signs (Past 12 Hours) Vital Signs Temp Pulse Pulse Resp BP BP Pulse Ox 06/29/23 19:00 108 H 18 128/75 06/29/23 18:48 105 H 18 94 06/29/23 18:01 110 H 06/29/23 17:12 36.8 C 132 H 30 H 136/92 94 O2 Del Method 06/29/23 19:00 06/29/23 18:48 Room Air 06/29/23 18:01 06/29/23 17:12 Room Air Laboratory Results Short CBC 06/29/23 Range/Units 17:35 WBC 15.17 H (4.8-10.8) K/ul Hgb 9.6 L (12.0-16.0) g/dl Hct 32.3 L (37.0-47.0) % Plt Count 333 (130-400) K/uL BMP 06/29/23 17:35 Sodium 137 Potassium 4.3 Chloride 100 Carbon Dioxide 31 BUN 16 Creatinine 1.09 Glucose 162 H Calcium 7.9 L Liver Function 06/29/23 Range/Units 17:35 Total Bilirubin 0.7 (0.2-1.0) mg/dl AST 26 (13-39) U/L ALT 14 (7-52) U/L Alkaline Phosphatase 104 (34-104) U/L Albumin 3.0 L (3.4-5.0) gm/dl Urine 06/29/23 Range/Units Unknown Urine Color Dark Yellow Urine Appearance Cloudy A (Clear) Urine pH 5.0 (4.5-7.5) Ur Specific [place] 1.021 (1.000-1.030) Urine Protein 1+ H (Negative) Urine Glucose (UA) Negative (Negative) Diagnostic Findings Chest X-Ray 06/29/23 17:17 XR chest 1V portable CLINICAL HISTORY: Chest pain, nonspecific COMPARISON STUDY: Chest CT November 28, 2018. Chest radiograph December 31, 2022. FINDINGS: Cardiomegaly is again noted. There is no pneumothorax. There are suspected small bilateral pleural effusions. Bibasilar opacities are present. There is mild interstitial thickening. IMPRESSION: Cardiomegaly. Interstitial thickening suggestive of interstitial pulmonary edema with small bilateral pleural effusions and associated bibasilar opacities. ACT 112: Negative or not required by law. Electronically signed by: Erik Vera M.D. 06/29/2023 6:19 PM ECG Additional Comments: Atrial fibrillation with rapid ventricular response with premature ventricular or aberrantly conducted complexes Incomplete right bundle branch block Nonspecific ST abnormality Abnormal ECG When compared with ECG of 31-DEC-2022 22:35, No significant change was found Supervising Physician Co-Signing Physician Notes Care coordinated with Amanda Puente PA-C. Agree with above note. Patient seen and examined. Please refer to her notes for full details. Vital signs reviewed. Physical exam: General exam: Alert and awake.. Not in acute distress. CVS: S1 and S2 heard, regular rate and rhythm, no murmurs. RS: Clear to auscultation, b/l mild rhonchi ABD: Soft, bowel sounds present, nontender, no distention. 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 Legs wrapped in dressings Labs: Reviewed. Assessment and plan: 87F was brought in after she choked on boneless chicken. Has some wheezing/rhonchi. Pneumonia on ct scan and in rapid afib. patient has dementia could not get much history from patient. says she is fine. says her breathing is good. Aspiration Pneumonitis after choking episode requiring oxygen on zosyn nebs prn pulmonary consult close monitor erapid a fib started on iv cardizem drip and iv heparin holding po meds metoprolol and Eliquis until seen by speech. cardio consulted close monitor. HFpEF Lower extremity edmea restart torsemide and Aldactone as soon as possible if not able to start po meds soon will place on iv lasix. Other diagnosis and plan of care as per Amanda Puente PA-C. . Brandon fragoso MD. (1) Aspiration pneumonia Aspiration pneumonia type: unspecified Laterality: right Lung location: unspecified part of lung Qualified Code(s): J69.0 - Pneumonitis due to inhalation of food and vomit (8) Venous stasis ulcers Laterality: left Non-pressure ulcer stage: limited to breakdown of skin Varicose vein presence: unspecified whether present Venous stasis ulcer site: calf Qualified Code(s): I83.022 - Varicose veins of left lower extremity with ulcer of calf; L97.221 - Non-pressure chronic ulcer of left calf limited to breakdown of skin
[2023-06-29] MEDS: METOPROLOL SUCC 50MG EXT REL TAB PO STA (20:53)
[2023-06-29] MEDS ORDERED: METOPROLOL TARTRATE 1 MG/ML VIAL IV PRN (21:01)
[2023-06-29] MEDS: METOPROLOL TARTRATE 1 MG/ML VIAL IV PRN (21:31)
[2023-06-29] MEDS ORDERED: STAT IV Infusion **Titration per Protocol STA (21:57)
[2023-06-29] MEDS ORDERED: ONDANSETRON INJ 2 MG/ML 2 ML VIAL IV PRN (22:12)
[2023-06-29] MEDS ORDERED: ACETAMINOPHEN 325 MG TAB PO PRN (22:12)
[2023-06-29] MEDS ORDERED: DOCUSATE SODIUM 100 MG CAP PO PRN (22:12)
[2023-06-29] MEDS ORDERED: NYSTATIN POWDER 15GM BTL EXT PRN (22:12)
[2023-06-29] MEDS ORDERED: POLYETHYLENE (MIRALAX) 17 GM PACK PO PRN (22:12)
--- NOTE | 2023-06-29 22:47 | CT Scan Report ---
Exam(s): CT CHEST Without Contrast EXAM: CT Chest Without Intravenous Contrast CLINICAL HISTORY: Reason for exam: aspiration, tachypnea. TECHNIQUE: Axial computed tomography images of the chest without intravenous contrast. CTDI is 22.57 mGy and DLP is 706.35 mGy-cm. Automated exposure control was utilized for the study. A dose lowering technique was utilized adhering to the principles of ALARA. COMPARISON: Chest CT 11/28/2018 FINDINGS: Lungs: Multifocal centrilobular airspace opacities most pronounced at the lung bases right greater than left. Interstitial edema. Pleural space: Small pleural effusions. Heart: Unremarkable. Bones/joints: No acute findings. Soft tissues: Unremarkable. Vasculature: Unremarkable. Lymph nodes: Unremarkable. IMPRESSION: 1. Multifocal centrilobular airspace opacities most pronounced at the lung bases right greater than left. 2. Interstitial edema. 3. Small pleural effusions. Electronically signed by: Adi Lafleur MD 06/29/23 22:47 PM
[2023-06-29] MEDS: dilTIAZem HCL 125 MG in DEXTROSE 5% 100 ML IV SCH (22:58)
[2023-06-29] MEDS: ATORVASTATIN 10 MG TAB PO SCH (23:39)
[2023-06-29] MEDS: APIXABAN 2.5 MG TAB PO SCH (23:39)
[2023-06-30] MEDS: TORSEMIDE 20 MG TAB PO ONE (00:14)
[2023-06-30] MEDS: HEPARIN SODIUM/DEXTROSE 25,000 UNITS/500 ML BAG IV SCH (00:49)
[2023-06-30] MEDS: Heparin IV Adult Wt-Based Low-Dose *NO* INITIAL Bolus Protocol IV STA (01:00)
[2023-06-30] MEDS: PIPERACILLIN/TAZOBACTAM 4.5 GM in DEXTROSE 5% MINI-B 100 ML IV SCH (03:34)
[2023-06-30] MEDS: LEVOTHYROXINE SODIUM 25 MCG TABLET PO SCH (05:34)
[2023-06-30 07:11] LABS: BUN Creatinine Ratio 15.2 (10-20); Calcium 7.5 mg/dl (8.6-10.3); Creatinine Clr Calc Pharmacy 25.9 ml/min; Est GFR (African American) 44.2 ml/min; Est GFR (Non-African American) 38.1 ml/min; Potassium 4.7 mmol/L (3.5-5.1)
--- NOTE | 2023-06-30 07:17 | XRay Report ---
XR hip LT 2V w pelvis HISTORY: 87 years-old Female posterior left hip pain / swelling acute left hip pain COMPARISON: Pelvis radiograph 07/08/2021 TECHNIQUE: AP view of the pelvis with 2 views of the left hip FINDINGS: Demineralized appearance of the bones. Moderate right hip osteoarthritis. Unchanged appearance of the left hip arthroplasty. No acute fracture, dislocation or evidence of hardware complication. Arterial calcifications. Limited study secondary to patient positioning. IMPRESSION: 1. No acute fracture or dislocation identified. 2. Chronic degenerative and postoperative changes as above. ACT 112: Negative or not required by law. The above report was generated using voice recognition software. It may contain grammatical, syntax o r spelling errors. Electronically signed by: Cas Chaparro M.D. 06/30/2023 7:15 AM
[2023-06-30 07:21] LABS: Hematocrit (blood only) 30.8 % (37.0-47.0); Hemoglobin 9.6 g/dl (12.0-16.0); Mean Corpuscular Hemoglobin 24.4 pg (25.0-34.0); Mean Corpuscular Hgb Conc 31.2 g/dL (32.0-36.0); Mean Corpuscular Volume 78.2 fL (80.0-100.0); Mean Platelet Volume 10.1 fL (9.4-12.4); Platelet Count 280 K/uL (130-400); RDW Coefficient of Variation 17.8 % (11.5-14.5); RDW Standard Deviation 50.7 fL (36.4-46.3); Red Blood Count 3.94 M/uL (4.20-5.40); White Blood Count 36.61 K/ul (4.8-10.8)
[2023-06-30 07:29] LABS: ANTI-Xa, UFH(UnfractionatedHep 0.46 IU/ml (0.3-0.7)
--- NOTE | 2023-06-30 08:09 | Hospitalist Progress Note ---
Date of Service June 30, 2023 Assessment & Plan (1) Aspiration pneumonia: (2) Atrial fibrillation with rapid ventricular response: (3) Current use of long-term anticoagulation: (4) (HFpEF) heart failure with preserved ejection fraction: (5) Traumatic open wound of right lower leg with delayed healing: (6) PAD (peripheral artery disease): (7) Chronic venous insufficiency: (8) Venous stasis ulcers: (9) Hypothyroidism: (10) CKD (chronic kidney disease) stage 3, GFR 30-59 ml/min: (11) Dyslipidemia: (12) HTN (hypertension): (13) History of CVA (cerebrovascular accident): Plan This is a 87-year-old female with PMH of HFpEF, permanent A Fib, history of CVA, hypothyroidism, HLD, prediabetes, CKD III, history of occlusion of common femoral artery, bilateral lower extremity edema, depression, mild dementia who presents from home after a choking incident. Unable to obtain history from patient at bedside due to dementia and hearing impairment. History obtained from granddaughter in- law and grandson over the phone as well as chart review. Aspiration pna Acute hypoxic resp. failure Choking incident at home with boneless wing, feels she passed food bolus but still with wheezing in ED Saturating at 96% on 2 L NC (not on home O2 at baseline) Afebrile, WBC 15k -> now WBC 36K CXR with cardiomegaly. Interstitial thickening suggestive of interstitial pulmonary edema with small bilateral pleural effusions and associated bibasilar opacities Obtained CT chest - 1. Multifocal centrilobular airspace opacities most pronounced at the lung bases right greater than left. 2. Interstitial edema. 3. Small pleural effusions. Started on Zosyn in ED - continue for now Pulmonary medicine consulted Speech consulted - s/p video swallow study - diet adjusted Aspiration precautions Atrial fibrillation with RVR Granddaughter mentions elevated HRs around 110 at home this past week Initial EKG with HR 134, given 10mg bolus of diltiazem in ED HR returned to 130s-140s after evening Toprol 100mg dose Started on diltiazem drip, monitor on telemetry, continue PRN IV Lopressor for HR >120 IV heparin for now, Continue Eliquis for anticoagulation when able to take PO Cardiology consulted HFpEF Recent saw cardiology and had Torsemide increased to 60mg BID BLE at baseline Most recent 2D echo from Nov 2022 with EF 50-54%, borderline diffuse left ventricular hypokinesis, mild AV regurg, mild MV regurg, mild tricuspid regurg Continue torsemide, spironolactone for now, monitor volume status closely CT chest as above Strict I&Os, daily weights Chronic bilateral lower extremity edema Chronic Venous insufficiency Non healing wounds Following with [facility] wound care, wraps in place and edema is at baseline Continue home diuretics Wound care nurse Left hip swelling Noted by family, more tender and swollen on posterior aspect L hip XR - 1. No acute fracture or dislocation identified. 2. Chronic degenerative and postoperative changes as above. Dementia At mentation baseline per granddaughter of A&O x 1, also hard of hearing Monitor for delirium Prediabetes Diabetic diet PAD History of CVA History of occlusion of common femoral artery Continue statin, Plavix Hypothyroidism Continue Synthyroid GERD On Protonix CKD III Cr at baseline 1.09. Follow daily BMP DVT Ppx: IV heparin ( plan to transition to Eliquis if can take PO) Code status: DNR/DNI per discussion over phone with ARJUN cole ([phone]) PCP: Dr. Jacob Dispo: PCU Admission and Anticipated Discharge Date Admission Date: June 29, 2023 Subjective Pt seen in follow up of aspiration event, hypoxia, afib w/ RVR Currently sitting up in bed in NAD, drowsy, on suppl. o2 She is hard of hearing and does not answer all the questions but overall not complaining of any discomfort Seen by speech - had video swallow study Pulm and cardiology consulted Review of Systems Review of Systems: All systems reviewed & are unremarkable except as noted in Subjective Physical Exam Physical Exam: General Appearance: WD/WN, elderly frail F in NAD, + chronically ill appearing, on suppl. O2 Head: normocephalic, atraumatic Eyes: normal inspection, PERRL ENT: external ear and nose normal, oropharynx normal Neck: normal visual inspection Respiratory: + b/l rhonchi Cardiovascular: irregular rate & rhythm, no murmur, + BLE edema. Vessels: no JVD Chest: normal inspection of chest Abdomen/GI: normal bowel sounds, soft, nontender Extremities/Musculoskeletal: BLE edema with chronic venous stasis changes R>L, legs wrapped,moving extremities Neurologic: drowsy but awakens, able to answers some simple questions, PERRL, EOMI, moves all extremities Skin: warm/dry, venous stasis changes on LE as above Results & Data Results & Data Vital Signs (Past 12 Hours) Vital Signs Pulse Pulse Resp BP BP Pulse Ox Pulse Ox 06/30/23 07:31 113 H 06/30/23 06:00 98 H 21 127/78 06/30/23 05:00 102 H 17 96/54 L 06/30/23 04:59 96 06/30/23 04:27 06/30/23 04:27 97 H 20 96/54 L 95 06/30/23 04:00 95 H 22 96/54 L 06/30/23 03:00 85 18 111/59 L 06/30/23 02:00 117 H 22 121/83 06/30/23 01:00 92 H 20 108/83 98 06/30/23 00:00 107 H 20 105/57 L 97 06/29/23 23:00 121 H 22 168/98 H 94 06/29/23 22:48 124 H 06/29/23 21:31 136 H 154/128 H 06/29/23 21:14 152 H 20 154/128 H 91 06/29/23 20:51 120 H 27 H 155/96 H 96 06/29/23 20:36 96 06/29/23 20:36 89 L O2 Del Method O2 Del Method O2 Flow Rate O2 Flow Rate 06/30/23 07:31 06/30/23 06:00 06/30/23 05:00 06/30/23 04:59 Nasal Cannula 4 06/30/23 04:27 Nasal Cannula 3 06/30/23 04:27 Nasal Cannula 3 06/30/23 04:00 06/30/23 03:00 06/30/23 02:00 06/30/23 01:00 06/30/23 00:00 Nasal Cannula 4 06/29/23 23:00 Nasal Cannula 4 06/29/23 22:48 06/29/23 21:31 06/29/23 21:14 Nasal Cannula 2 06/29/23 20:51 Nasal Cannula 2 06/29/23 20:36 Nasal Cannula 3 06/29/23 20:36 Room Air Laboratory Results 06/30/23 06/29/23 06/29/23 Range/Units 06:29 Unknown 17:35 WBC 36.61 H* D 15.17 H (4.8-10.8) K/ul RBC 3.94 L 4.11 L (4.20-5.40) M/uL Hgb 9.6 L 9.6 L (12.0-16.0) g/dl Hct 30.8 L 32.3 L (37.0-47.0) % MCV 78.2 L 78.6 L (80.0-100.0) fL MCH 24.4 L 23.4 L (25.0-34.0) pg MCHC 31.2 L 29.7 L (32.0-36.0) g/dL RDW Std Deviation 50.7 H 51.9 H (36.4-46.3) fL RDW Coeff of Cain 17.8 H 18.2 H (11.5-14.5) % Plt Count 280 333 (130-400) K/uL MPV 10.1 10.0 (9.4-12.4) fL Immature Gran % (Auto) 0.7 % Neut % (Auto) 86.9 % Lymph % (Auto) 4.5 % Garvin % (Auto) 7.1 % Eos % (Auto) 0.3 % Baso % (Auto) 0.5 % Neut # (Auto) 13.17 H (1.40-6.50) K/uL Lymph # (Auto) 0.69 L (1.20-3.40) K/uL Garvin # (Auto) 1.08 H (0.11-0.59) K/uL Eos # (Auto) 0.05 (0.00-0.50) K/uL Baso # (Auto) 0.07 (0.00-0.20) K/uL Immature Gran # (Auto) 0.11 (0.01-0.20) K/uL PT 14.7 H (9.0-12.0) Seconds INR 1.4 H (0.9-1.1) APTT 26 (21-31) Seconds PTT Ratio 1.0 Heparin Anti-Xa, Unfract 0.46 (0.3-0.7) IU/ml Sodium 139 137 (136-145) mmol/L Potassium 4.7 4.3 (3.5-5.1) mmol/L Chloride 103 100 (98-107) mmol/L Carbon Dioxide 30 31 (21-32) mmol/L Anion Gap 6 6 (3-11) BUN 19 16 (6-23) mg/dl Creatinine 1.25 H 1.09 (0.6-1.2) mg/dl Est Cr Clr Drug Dosing 25.9 29.7 ml/min Est GFR ( Amer) 44.2 52.1 ml/min Est GFR (Non-Af Amer) 38.1 45.0 ml/min BUN/Creatinine Ratio 15.2 14.7 (10-20) Glucose 117 H 162 H (70-99(Fasting)) mg/dl Calcium 7.5 L 7.9 L (8.6-10.3) mg/dl Total Bilirubin 0.7 (0.2-1.0) mg/dl AST 26 (13-39) U/L ALT 14 (7-52) U/L Alkaline Phosphatase 104 (34-104) U/L Troponin I High Sens 8.1 (0-14) pg/ml C-Reactive Protein 2.92 H (0-0.5) mg/dl Total Protein 6.9 (6.0-8.3) gm/dl Albumin 3.0 L (3.4-5.0) gm/dl Globulin 3.9 (2.5-4.0) gm/dl Albumin/Globulin Ratio 0.8 L (0.9-2) Lipase 15 (11-82) U/L Procalcitonin 0.04 (0-0.5) ng/ml Urine Color Dark Yellow Urine Appearance Cloudy A (Clear) Urine pH 5.0 (4.5-7.5) Ur Specific [place] 1.021 (1.000-1.030) Urine Protein 1+ H (Negative) Urine Glucose (UA) Negative (Negative) Urine Ketones Negative (Negative) Urine Blood Negative (Negative) Urine Nitrite Negative (Negative) Urine Bilirubin Negative (Negative) Urine Urobilinogen Negative (Negative) Ur Leukocyte Esterase 1+ H (Negative) Urine RBC 0-2 (0-2) /hpf Urine WBC 0-5 (0-5) /hpf Ur Epithelial Cells 3-5 H (0-2) /hpf Calcium Oxalate Crystal Present A (None Prsent) Urine Bacteria None Seen (None Seen) Medications Administered Current Inpatient Medications Acetaminophen (Acetaminophen 325 Mg Tab) 650 mg PO Q4H PRN PRN Reason: Pain or Fever Stop: 07/29/23 22:11 Albuterol (Albuterol 0.083% Nebu Soln 3 Ml Vial) 2.5 mg INH DAILY PRN; Protocol PRN Reason: Wheezing Stop: 07/29/23 22:11 Apixaban (Apixaban 2.5 Mg Tab) 2.5 mg PO BID CURLY Stop: 07/29/23 22:11 Last Admin: 06/29/23 23:39 Dose: Not Given Atorvastatin Calcium (Atorvastatin 10 Mg Tab) 10 mg PO HS CURLY Stop: 07/29/23 22:11 Last Admin: 06/29/23 23:39 Dose: Not Given Clopidogrel Bisulfate (Clopidogrel Bisulfate 75 Mg Tab) 75 mg PO QAM [facility] Stop: 07/30/23 08:59 Cyanocobalamin (Cyanocobalamin (B-12) 500 Mcg Tablet) 1,000 mcg PO DAILY CURLY Stop: 07/30/23 08:59 Docusate Sodium (Docusate Sodium 100 Mg Cap) 100 mg PO BID PRN PRN Reason: Constipation Stop: 07/29/23 22:11 Fluticasone Propionate (Fluticasone Propionate Na Spr 16 Gm Btl) 2 sprays SHOSHANA DAILY PRN PRN Reason: Congestion Stop: 07/29/23 22:11 Diltiazem HCl 125 mg/ Dextrose 125 mls @ 0 mls/hr IV .Q0M CURLY; Protocol Stop: 07/29/23 21:59 Last Titration: 06/30/23 03:33 Dose: 0 mg/hr, 0 mls/hr Heparin Sodium/Dextrose (Heparin Sodium/Dextrose) 25,000 units in 500 mls @ 13 mls/hr IV .Q24H CURLY; Protocol Stop: 07/29/23 23:44 Last Admin: 06/30/23 00:49 Dose: 650 units/hr, 13 mls/hr Piperacillin Sod/Tazobactam (Sod 4.5 gm/ Dextrose) 100 mls @ 25 mls/hr IV Q8H CURLY; Protocol Stop: 07/07/23 01:59 Last Infusion: 06/30/23 07:45 Dose: Infused Levothyroxine Sodium (Levothyroxine Sodium 25 Mcg Tablet) 25 mcg PO DAILYBB [facility] Stop: 07/30/23 06:29 Last Admin: 06/30/23 05:34 Dose: Not Given Magnesium Oxide (Magnesium Oxide 400 Mg Tab) 400 mg PO DAILY [facility] Stop: 07/30/23 08:59 Metoprolol Succinate (Metoprolol Succ 50mg Ext Rel Tab) 100 mg PO BID [facility] Stop: 07/30/23 08:59 Multivitamins (Multivitamin Tab) 1 tab PO DAILY [facility] Stop: 07/30/23 08:59 Nystatin (Nystatin Powder 15gm Btl) 1 appln EXT TID PRN PRN Reason: Skin Irritation Stop: 07/29/23 22:11 Ondansetron HCl (Ondansetron Inj 2 Mg/Ml 2 Ml Vial) 4 mg IV Q6H PRN PRN Reason: Nausea Stop: 07/29/23 22:11 Pantoprazole Sodium (Pantoprazole 40 Mg Tab) 40 mg PO QAM [facility] Stop: 07/30/23 08:59 Polyethylene Glycol (Polyethylene (Miralax) 17 Gm Pack) 17 gm PO DAILY PRN PRN Reason: Constipation Stop: 07/29/23 22:11 Spironolactone (Spironolactone 12.5 Mg Tab) 12.5 mg PO QAM [facility] Stop: 07/30/23 08:59 Torsemide (Torsemide 20 Mg Tab) 40 mg PO BID17 [facility] Stop: 07/30/23 08:59 (1) Aspiration pneumonia Aspiration pneumonia type: unspecified Laterality: right Lung location: unspecified part of lung Qualified Code(s): J69.0 - Pneumonitis due to inhalation of food and vomit (8) Venous stasis ulcers Laterality: left Non-pressure ulcer stage: limited to breakdown of skin Varicose vein presence: unspecified whether present Venous stasis ulcer site: calf Qualified Code(s): I83.022 - Varicose veins of left lower extremity with ulcer of calf; L97.221 - Non-pressure chronic ulcer of left calf limited to breakdown of skin
[2023-06-30] MEDS: TORSEMIDE 20 MG TAB PO SCH (08:34)
[2023-06-30] MEDS: SPIRONOLACTONE 12.5 MG TAB PO SCH (08:37)
[2023-06-30] MEDS ORDERED: MULTIVITAMIN TAB PO SCH (09:00)
[2023-06-30] MEDS ORDERED: MAGNESIUM OXIDE 400 MG TAB PO SCH (09:00)
--- NOTE | 2023-06-30 09:22 | Cardiology Consultation ---
Date of Consultation June 30, 2023 Assessment & Plan (1) Hypoxia: (2) Aspiration pneumonia: (3) (HFpEF) heart failure with preserved ejection fraction: (4) Atrial fibrillation with rapid ventricular response: (5) Venous stasis ulcers: (6) HTN (hypertension): (7) Dyslipidemia: (8) CKD (chronic kidney disease) stage 3, GFR 30-59 ml/min: (9) UTI (urinary tract infection): Plan Assessment: 87 year old hearing impaired female presents after choking on a boneless chicken wing resulting in a RUL/Aspiration pneumonia. A-fib with RVR upon presentation with known permanent A-fib on chronic AC therapy. Incidental finding of an acute UTI during evaluation. Plan: 1. Hypoxia 2. Aspiriation Pneumonia 3. HFpEF -Hypoxia, while multifactorial, acutely in response to her aspiration event and subsequent pneumonia. -Modest elevation in WBC, continued management of acute infectious process per primary team. Pulmonary medicine also on consult. -Demonstrates evidence of volume overload; however, will be cautious with diuresis at this time in the setting of an acute infection. -Echocardiogram pending to assess overall structure and function. -Continue Metoprolol succinate 100mg PO BID, Spironolactone 12.5mg QAM, Torsemide 40mg PO BID. -Closely monitor I&O, daily weights, and labs closely. Goal Serum K> 4.0 and Serum mag > 2.0. 4. A-fib with RVR -Known chronic/permanent A-fib. increased rate in response to hypoxia and acute infectious process. -Eliquis on hold due to poor oral intake. May continue Heparin gtt at this time. When tolerating PO well, please transition back to Eliquis 2.5mg PO BID (reduced dosing s/t weight and age) -may continue Diltiazem gtt today, and also continue home regimen of Toprol xl. 5. venous stasis ulcers: -Per management of primary team. Currently in compression dressings 6. HTN: -Controlled. -Continue Toprol xl, Cardizem GTT, Torsemide, and spironolactone. 7. Dyslipidemia -Continue Atorvastatin as per current regimen. 8. CKD 9. UTI: -As per management of primary team. Case has been discussed with Dr. Lopez. Further recommendations regarding plan of care as per his assessment. I spent a total of 40 minutes on the date of service in preparation, delivery, documentation of the care provided to the patient excluding any time spent in the performance of separately billed services. TRACY Bradford [facility] Cardiology [facility] Supervising Physician Co-Signing Physician Notes I have personally performed a history and physical examination on the patient.I have reviewed the advance practitioner's documentation, and I agree with, and take responsibility for the plan of care. 87-year-old female with underlying dementia and hearing impairment presented to the emergency room with acute aspiration event. X-ray with evidence of bilateral lower lobe infiltrates and vascular congestion. Remains n.p.o. with intermittent vomiting since admission. Unable to offer meaningful history. History of chronic atrial fibrillation although elevated heart rates noted this admission associated with acute aspiration event. Agree with IV diltiazem infusion as patient is currently n.p.o. pending swallow evaluation. Continue rate control strategy. Resume Toprol-XL 100 mg twice daily and apixaban 2.5 mg twice daily when able. IV heparin initiated with oral anticoagulation on hold. Patient appears mildly volume overloaded on physical exam and per chest x-ray, however, I am reluctant to add IV diuretic therapy with ongoing nausea and vomiting. Will continue to monitor volume status during hospitalization consider additional dose of IV diuretics pending clinical course. Monitor fluid balance, daily weight, GFR, and electrolytes. I spent a total of 30 minutes on the date of service in preparation, delivery, and documentation of the care provided to this patient, excluding any time spent in the performance of separately billed services. History of Present Illness Reason for Consultation: A-fib with RVR Requesting Physician: Janel hospitalist Attending Physician: Gilberto Thompson MD History of Present Illness HPI: Patient is a 87 year-old female with PMHx as noted below who presented to the ED from her home after a reported choking incident on a boneless wing. Severe hearing impairment. Patient is resting in bed this morning upon my examination. She denies shortness of breath, but appears to have some increased work of breathing. Denies any chest pain, pressure or palpitations. patient is extremely hard of hearing. Denies pre-syncope or syncope. Legs currently wrapped in compression stacy bandages due to chronic lower extremity edema and poor healing ulcerations. EKG on admission A-fib with RVR and PVCs, incomplete Right BBB. Rate 134bpm. Non-specific ST abnormality. This was cited on previously studies. Chest x-ray IMPRESSION: Cardiomegaly. Interstitial thickening suggestive of interstitial pulmonary edema with small bilateral pleural effusions and associated bibasilar opacities. CT Chest IMPRESSION: 1. Multifocal centrilobular airspace opacities most pronounced at the lung bases right greater than left. 2. Interstitial edema. 3. Small pleural effusions. WBC with modest elevation 36.1K/ul Troponin negative x1 Abnormal UA Primary Performance Specialist: Dr. Mondragon/ TRACY Dumont Past medical history: 1. Permanent atrial fibrillation a. [id number]-PCEy score of 7 (age 1, female, CHF, CVA 2). 2. Chronic combined diastolic and systolic CHF a. History of ischemic cardiomyopathy, LVEF as low as 40-44% per echo 07/2021-- resolved per echo 11/2022 3. Chronic lower extremity lymphedema/venous insufficiency 4. Hypertension 5. History of CVA-- on Plavix 6. Dementia 7. CKD III Allergies Allergy/AdvReac Type Severity Reaction Status Date / Time aspirin Allergy Severe ANAPHYLAXIS, Verified 06/29/23 19:25 SWELLING, (PER [facility]--NAUSEA, VOMITING). Home Medications Medication Instructions Recorded Confirmed Type atorvastatin 10 mg tablet 10 mg PO HS 03/05/18 06/29/23 History clopidogrel 75 mg tablet 75 mg PO QAM 03/05/18 06/29/23 History levothyroxine 25 mcg tablet 25 mcg PO QAM 03/05/18 06/29/23 History pantoprazole 40 mg tablet,delayed 40 mg PO QAM 03/05/18 06/29/23 History release fluticasone propionate 50 2 spry intranasal DAILY PRN 05/09/18 06/29/23 History mcg/actuation nasal Congestion spray,suspension nystatin 100,000 unit/gram topical 1 applic topical BID PRN Skin 05/09/18 06/29/23 History cream Irritation acetaminophen 650 mg 650 mg PO Q6H PRN pain/fever 11/14/18 06/29/23 History tablet,extended release polyethylene glycol 3350 17 17 g PO DAILY PRN SEVERE 11/14/18 06/29/23 History gram/dose oral powder (Miralax) CONSTIPATION albuterol sulfate 2.5 mg/3 mL 2.5 mg inhalation DIRECTED PRN 11/27/18 06/29/23 History (0.083 %) solution for nebulization Wheezing cyanocobalamin (vitamin B-12) 1,000 mcg PO DAILY 07/08/21 06/29/23 History 1,000 mcg tablet (Vitamin B-12) docusate sodium 100 mg capsule 100 mg PO BID PRN Constipation 07/08/21 06/29/23 History (Stool Softener) nystatin 100,000 unit/gram topical 1 applic topical TID PRN Skin 07/08/21 06/29/23 History powder Irritation apixaban 5 mg tablet (Eliquis) 5 mg PO BID 04/16/22 06/29/23 History multivitamin 1 tab PO DAILY 04/16/22 06/29/23 History spironolactone 25 mg tablet 12.5 mg PO QAM 12/31/22 06/29/23 History torsemide 20 mg tablet 60 mg PO BID 12/31/22 06/29/23 History magnesium oxide 400 mg PO DAILY 01/05/23 06/29/23 History metoprolol succinate 100 mg 100 mg PO BID 06/29/23 06/29/23 History tablet,extended release 24 hr Patient History Medical History S/P arteriogram of extremity History of CVA (cerebrovascular accident) UTI (urinary tract infection) NACHO (generalized anxiety disorder) CVA (cerebral vascular accident) Family History Other Cancer Diabetes Hypertension Kidney disease No significant family history Social History Smoking Status: Never smoker Second Hand Exposure: No; Do You Dip or Chew Tobacco: No; Hx Alcohol Use: No Hx Substance Use: No Preferred Language: Latvian 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 Ability: Effective 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 Ability Comment: extreme [place]/poor historian Recreation Coordinator Required: Voice Beliefs That Will Affect Care: None marital status: / Current Living Situation: Family Current Living Situation Comment: Lives with Daughter Otto and her family Feels Safe at Home: Yes Assistive Devices: Bedside Commode, Hospital Bed, Lift Chair and Walker Review of Systems Review of Systems: All systems reviewed & are unremarkable except as noted in HPI & below Physical Exam Constitutional: + ill appearing and + frail appearing; n o acute distress Neck: normal visual inspection and trachea midline Respiratory: normal respiratory effort and + cough (weak, non-productive cough ); no respiratory distress Auscultation: + diminished lung sounds (throughout) and + wheezes (scattered exp. wheezes); no crackles, no rales and no rhonchi Cardiovascular: Rate/Rhythm: + irregularly irregular Heart Sounds: normal S1, normal S2 and + murmur Vessels: dorsalis pedis pulses present; no JVD Extremities: + edema (+1 BLE, difficult to assess. bilateral compression wraps ) Skin: normal turgor and + ulcer (poorly healing venous ulcers b/l lower extremities ); no rashes Psychiatric: Orientation: alert and oriented x 3 (very hard of hearing ) Results & Data Vital Signs (Past 12 Hours) Vital Signs Pulse Pulse Resp BP BP BP Pulse Ox 06/30/23 08:42 98 H 20 111/72 94 06/30/23 07:31 113 H 06/30/23 06:00 98 H 21 127/78 06/30/23 05:00 102 H 17 96/54 L 06/30/23 04:59 06/30/23 04:27 06/30/23 04:27 97 H 20 96/54 L 95 06/30/23 04:00 95 H 22 96/54 L 06/30/23 03:00 85 18 111/59 L 06/30/23 02:00 117 H 22 121/83 06/30/23 01:00 92 H 20 108/83 98 06/30/23 00:00 107 H 20 105/57 L 97 06/29/23 23:00 121 H 22 168/98 H 94 06/29/23 22:48 124 H 06/29/23 21:31 136 H 154/128 H 06/29/23 21:14 152 H 20 154/128 H 91 Pulse Ox O2 Del Method O2 Del Method O2 Flow Rate O2 Flow Rate 06/30/23 08:42 Nasal Cannula 4 06/30/23 07:31 06/30/23 06:00 06/30/23 05:00 06/30/23 04:59 96 Nasal Cannula 4 06/30/23 04:27 Nasal Cannula 3 06/30/23 04:27 Nasal Cannula 3 06/30/23 04:00 06/30/23 03:00 06/30/23 02:00 06/30/23 01:00 06/30/23 00:00 Nasal Cannula 4 06/29/23 23:00 Nasal Cannula 4 06/29/23 22:48 06/29/23 21:31 06/29/23 21:14 Nasal Cannula 2 Laboratory Results Cardiac Enzymes 06/29/23 Range/Units 17:35 AST 26 (13-39) U/L Troponin I High Sens 8.1 (0-14) pg/ml Coagulation 06/29/23 Range/Units 17:35 PT 14.7 H (9.0-12.0) Seconds APTT 26 (21-31) Seconds CBC 06/29/23 06/30/23 Range/Units 17:35 06:29 WBC 15.17 H 36.61 H* D (4.8-10.8) K/ul RBC 4.11 L 3.94 L (4.20-5.40) M/uL Hgb 9.6 L 9.6 L (12.0-16.0) g/dl Hct 32.3 L 30.8 L (37.0-47.0) % Plt Count 333 280 (130-400) K/uL Neut # (Auto) 13.17 H (1.40-6.50) K/uL Lymph # (Auto) 0.69 L (1.20-3.40) K/uL Braxton # (Auto) 1.08 H (0.11-0.59) K/uL Eos # (Auto) 0.05 (0.00-0.50) K/uL Baso # (Auto) 0.07 (0.00-0.20) K/uL Comprehensive Metabolic Panel 06/29/23 06/30/23 Range/Units 17:35 06:29 Sodium 137 139 (136-145) mmol/L Potassium 4.3 4.7 (3.5-5.1) mmol/L Chloride 100 103 (98-107) mmol/L Carbon Dioxide 31 30 (21-32) mmol/L BUN 16 19 (6-23) mg/dl Creatinine 1.09 1.25 H (0.6-1.2) mg/dl Glucose 162 H 117 H (70-99(Fasting)) mg/dl Calcium 7.9 L 7.5 L (8.6-10.3) mg/dl AST 26 (13-39) U/L ALT 14 (7-52) U/L Alkaline Phosphatase 104 (34-104) U/L Total Protein 6.9 (6.0-8.3) gm/dl Albumin 3.0 L (3.4-5.0) gm/dl Intake and Output 06/29/23 06/30/23 06/30/23 22:59 06:59 14:59 Intake Total 100 / 122.917 22.917 / 122.917 100 / 100 Balance 100 / 122.917 22.917 / 122.917 100 / 100 Intake: IV 100 / 122.917 22.917 / 122.917 100 / 100 Piperacillin/Tazobactam 4.5 gm 100 / 100 In Dextrose 5% Mini-B 100 ml @ 25 mls/hr IV Q8H [facility] Rx#: [id number] Piperacillin/Tazobactam 4.5 gm 100 / 100 In 100 ml @ 200 mls/hr IV NOW ONE Rx#:[id number] dilTIAZem HCL 125 mg In 22.917 / 22.917 Dextrose 5% 100 ml @ 0 MG/HR IV .Q0M [facility] Rx#:[id number] Other: Weight 53.7 kg 53.7 kg Weight Measurement Method [facility] (2) Aspiration pneumonia Aspiration pneumonia type: unspecified Laterality: right Lung location: unspecified part of lung Qualified Code(s): J69.0 - Pneumonitis due to inhalation of food and vomit (5) Venous stasis ulcers Laterality: left Non-pressure ulcer stage: limited to breakdown of skin Varicose vein presence: unspecified whether present Venous stasis ulcer site: calf Qualified Code(s): I83.022 - Varicose veins of left lower extremity with ulcer of calf; L97.221 - Non-pressure chronic ulcer of left calf limited to breakdown of skin
--- NOTE | 2023-06-30 10:19 | Fluoroscopy Report ---
FL video swallow CLINICAL HISTORY: 87 years-old Female with assess for aspiration. Dysphagia with possible aspiration TECHNIQUE: Video fluoroscopic evaluation of swallowing was performed in the AP and lateral projection s by the speech pathology staff. The patient is fed varying consistencies of barium. FLUOROSCOPY TIME: 1.50 minutes. 2007 images were submitted. 13.3 mGy COMPARISON STUDY: Chest CT 06/29/2023 FINDINGS: Laryngeal penetration without aspiration noted with thin liquid barium. No definite aspirat ion identified throughout the exam. There is delayed oral pharyngeal transit with the solid consisten cy. Mid to distal esophageal dysmotility. IMPRESSION: 1. No aspiration identified. 2. Please see the speech pathologist report for detailed findings and recommendations. ACT 112: Negative or not required by law. Electronically signed by: Cas Chaparro M.D. 06/30/2023 10:18 AM
--- NOTE | 2023-06-30 11:04 | Pulmonary Consultation ---
Date of Consultation June 30, 2023 Assessment & Plan (1) Aspiration into airway: (2) Hypoxia: (3) Atrial fibrillation with RVR: (4) CHF (congestive heart failure): Heart failure chronicity: acute Heart failure type: unspecified Qualified Code(s): I50.9 - Heart failure, unspecified (5) (HFpEF) heart failure with preserved ejection fraction: Plan IMPRESSION: 87-year-old female with a history of dementia, prior CVA, heart failure, chronic A-fib, and CKD who presents in the setting of aspiration event that occurred last evening. Pulmonary medicine consulted for recommendations. RECOMMENDATIONS: 1. Aspiration event - Patient presenting after possible aspiration of food product last evening. Imaging studies reviewed. Currently covered with Zosyn. If this is her only concern for source of infection, could de-escalate to Unasyn with thought of transitioning to oral Augmentin in the outpatient setting. She is not bronchospastic on exam today. Agree with as needed nebs. Pulmonary toileting if the patient is able to participate. Unfortunately, the patient is demented and intermittently communicative with family and staff. Unfortunately, I am uncertain how will the patient will do if aspiration is a consistent problem for her. Recommendations for speech therapy are still pending at this time, but would follow the recommendations moving forward. Patient with no other noted history of pulmonary diseases otherwise. 2. Hypoxia - Contributed from #1. Patient is saturating 99% on 4 L nasal cannula. Continue with pulmonary toileting as patient tolerates and titrating down supplemental oxygen as tolerated. Unfortunately, if the patient is unable to contribute to pulmonary toileting, this certainly could put the patient at risk for development of secondary pneumonia process. Would agree with DNR/DNI status in this frail appearing 87-year-old female. 3. A-fib with RVR - Continue to manage by primary service and cardiology consultation. 4. CHF -continue outpatient management as patient tolerates. Thank you for allowing us to participate in the care of this patient. Supervising Physician Co-Signing Physician Notes Patient seen and examined. EMR reviewed. Images independently reviewed. Discussed with DAWIT and agree with assessment plan as noted. The patient has CT findings concerning for potential aspiration pneumonia and given the history this appears to be most consistent. Would recommend antibiotics in the form of Unasyn. Can transition to Augmentin when and if she is able to take p.o. Swallow evaluation recommended. Given the patient's advanced age and dementia, I do not think she would be a candidate for bronchoscopy at this point in time. Defining goals of therapy would be highly appropriate in this patient with end-stage dementia and dysphagia. Not much else to add from pulmonary standpoint other than antibiotics. Pulmonar y will sign off at this point in time. Feel free to contact us with questions or concerns History of Present Illness Reason for Consultation: aspiration Requesting Physician: Amanda Puente PA-C Attending Physician: Gilberto Thompson MD History of Present Illness Patient is an 87-year-old female with a significant past medical history of CHF, A-fib, prior history of CVA, hypothyroidism, hyperlipidemia, prediabetes, CKD 3, lower extremity vascular issues, chronic wounds, dementia who had presented after a possible aspiration event. By the time she arrived in the emergency department, she had resolved her symptoms. She is requiring some supplemental oxygen with findings of nonspecific bilateral lower lobe likely atelectasis changes. Pulmonary consulted for recommendations. Upon evaluation in room C9, the patient is sleeping. I did attempt to wake her up multiple occasions, however she did not wake and per records, she is demented and unable to contribute to HPI otherwise. Allergies Allergy/AdvReac Type Severity Reaction Status Date / Time aspirin Allergy Severe ANAPHYLAXIS, Verified 06/29/23 19:25 SWELLING, (PER [facility]--NAUSEA, VOMITING). Home Medications Medication Instructions Recorded Confirmed Type atorvastatin 10 mg tablet 10 mg PO HS 03/05/18 06/29/23 History clopidogrel 75 mg tablet 75 mg PO QAM 03/05/18 06/29/23 History levothyroxine 25 mcg tablet 25 mcg PO QAM 03/05/18 06/29/23 History pantoprazole 40 mg tablet,delayed 40 mg PO QAM 03/05/18 06/29/23 History release fluticasone propionate 50 2 spry intranasal DAILY PRN 05/09/18 06/29/23 History mcg/actuation nasal Congestion spray,suspension nystatin 100,000 unit/gram topical 1 applic topical BID PRN Skin 05/09/18 06/29/23 History cream Irritation acetaminophen 650 mg 650 mg PO Q6H PRN pain/fever 11/14/18 06/29/23 History tablet,extended release polyethylene glycol 3350 17 17 g PO DAILY PRN SEVERE 11/14/18 06/29/23 History gram/dose oral powder (Miralax) CONSTIPATION albuterol sulfate 2.5 mg/3 mL 2.5 mg inhalation DIRECTED PRN 11/27/18 06/29/23 History (0.083 %) solution for nebulization Wheezing cyanocobalamin (vitamin B-12) 1,000 mcg PO DAILY 07/08/21 06/29/23 History 1,000 mcg tablet (Vitamin B-12) docusate sodium 100 mg capsule 100 mg PO BID PRN Constipation 07/08/21 06/29/23 History (Stool Softener) nystatin 100,000 unit/gram topical 1 applic topical TID PRN Skin 07/08/21 06/29/23 History powder Irritation apixaban 5 mg tablet (Eliquis) 5 mg PO BID 04/16/22 06/29/23 History multivitamin 1 tab PO DAILY 04/16/22 06/29/23 History spironolactone 25 mg tablet 12.5 mg PO QAM 12/31/22 06/29/23 History torsemide 20 mg tablet 60 mg PO BID 12/31/22 06/29/23 History magnesium oxide 400 mg PO DAILY 01/05/23 06/29/23 History metoprolol succinate 100 mg 100 mg PO BID 06/29/23 06/29/23 History tablet,extended release 24 hr Patient History Medical History S/P arteriogram of extremity History of CVA (cerebrovascular accident) UTI (urinary tract infection) NACHO (generalized anxiety disorder) CVA (cerebral vascular accident) Family History Other Cancer Diabetes Hypertension Kidney disease No significant family history Social History Smoking Status: Never smoker Second Hand Exposure: No; Do You Dip or Chew Tobacco: No; Hx Alcohol Use: No Hx Substance Use: No Preferred Language: Amharic 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 Ability: Effective 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 Ability Comment: extreme NUIQSUT/poor historian 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 Physical Exam Physical Exam: VITAL SIGNS Vital signs and nursing notes were reviewed. GENERAL 87-year-old female appearing her stated age who is in no acute distress. SKIN bilateral lower extremity wound dressings clean, dry, and intact NOSE Midline and without cyanosis. MOUTH/OROPHARYNX Without perioral cyanosis. Oral mucosa pink and dry. NECK Neck with FROM. LUNGS kyphotic appearing. Coarse breath sounds appreciated at the lung bases. CARDIAC irregularly irregular. ABDOMEN Abdominal inspection demonstrates an obese abdomen. No tenderness, palpable masses, or ascites noted. EXTREMITIES Bilateral pretibial edema present. +3/5 radial palpated throughout. Results & Data Results & Data Vital Signs (Past 12 Hours) Vital Signs Pulse Pulse Resp BP BP BP Pulse Ox 06/30/23 08:42 98 H 20 111/72 94 06/30/23 07:31 113 H 06/30/23 06:00 98 H 21 127/78 06/30/23 05:00 102 H 17 96/54 L 06/30/23 04:59 06/30/23 04:27 06/30/23 04:27 97 H 20 96/54 L 95 06/30/23 04:00 95 H 22 96/54 L 06/30/23 03:00 85 18 111/59 L 06/30/23 02:00 117 H 22 121/83 06/30/23 01:00 92 H 20 108/83 98 06/30/23 00:00 107 H 20 105/57 L 97 Pulse Ox O2 Del Method O2 Del Method O2 Flow Rate O2 Flow Rate 06/30/23 08:42 Nasal Cannula 4 06/30/23 07:31 06/30/23 06:00 06/30/23 05:00 06/30/23 04:59 96 Nasal Cannula 4 06/30/23 04:27 Nasal Cannula 3 06/30/23 04:27 Nasal Cannula 3 06/30/23 04:00 06/30/23 03:00 06/30/23 02:00 06/30/23 01:00 06/30/23 00:00 Nasal Cannula 4 PG Care Time/CCT Total # of Minutes Spent Total Time Spent with Patient: Total time spent is greater than 50% in coordination of care (as documented) at patient's floor/unit and/or counseling patient: Coding Level of Care Code 01344 INT INP/OBS CARE 2MIN Diagnoses Aspiration into airway T17.908A Hypoxia R09.02 Atrial fibrillation with RVR I48.91 CHF (congestive heart failure) I50.9 Heart failure chronicity: acute Heart failure type: unspecified (HFpEF) heart failure with preserved ejection fraction I50.30
--- NOTE | 2023-06-30 15:21 | Electrocardiogram Report ---
Test Reason : Blood Pressure : / mmHG Vent. Rate : 134 BPM Atrial Rate : 000 BPM P-R Int : 000 ms QRS Dur : 092 ms QT Int : 342 ms P-R-T Axes : 000 030 007 degrees QTc Int : 510 ms Atrial fibrillation with rapid ventricular response with premature ventricular or aberrantly conducte d complexes Incomplete right bundle branch block Nonspecific ST abnormality Abnormal ECG When compared with ECG of 31-DEC-2022 22:35, No significant change was found Confirmed by Prabhu Davis ([id number]) on 06/30/2023 3:20:29 PM Referred By: REFERRED SELF Confirmed By:Prabhu Davis
[2023-06-30 17:40] LABS: ANTI-Xa, UFH(UnfractionatedHep 0.33 IU/ml (0.3-0.7)
[2023-06-30] MEDS: ALBUTEROL 0.083% NEBU SOLN 3 ML VIAL INH PRN (20:41)
--- OUTSIDE RECORDS SUMMARY | 2023-07-01 00:12 | External Medical Summary | Summary of Care ---
Author Name Unknown Organization [facility] Address [address] [place] [address] Phone [phone] Care Team Providers Care In Flight Refueling System Repairer Name Role Phone Ketan Jacob MD Primary Care Provider [phone] Reason for Visit * Reason Onset Date Comments Test Results 03/15/2023 Encounter Details Date Type Department Care Team (Late st Contact Info) Description 03/15/2023 Telephone Cardiology, [facility] [address] [place] [address] Kristina Ball CRNP [address] [place] [address] Test Results Allergies Active Allergy Reactions Criticality Noted Date Comments Aspirin Nausea/vomiting 08/19/2011 documented as of this encounter (statuses as of 03/17/2023) Medications Medication Sig Dispensed Refills Start Date [...] daily. 1 Inhaler 1 06/20/2018 Active Nystatin 857126 UNIT/GM External Powder (Nystop)Indicatio ns:Intertrigo Apply topically to affected area 3 times a day. Apply to groin 60 g 1 11/20/2020 Active Nystatin 431908 UNIT/GM External CreamIndications: Intertrigo Apply topically to [...] FOR CHOLESTEROL 90 Tablet 3 05/31/2022 Active Vitamin B-12 1000 MCG Oral Tablet (Cyanocobalamin)I ndications:Encoun ter for long-term (current) use of other medications Take 1 Tablet by mouth in the morning. 100 Tablet 3 07/23/2022 Active Spironolactone 25 MG Oral Tablet (Aldactone) Take 0.5 Tablets by mouth in the morning. 90 Tablet 3 08/09/2022 Active Pantoprazole Sodium 40 MG Oral Tablet Delayed Release (Protonix)Indicat ions:Gastroesopha geal reflux disease TAKE 1 TABLET BY MOUTH EVERY DAY IN THE MORNING 90 Tablet 2 09/09/2022 Active Clopidogrel Bisulfate 75 MG Oral Tablet (pLAVix)Indicatio ns:History of CVA (cerebrovascular accident) TAKE 1 TABLET (75 MG) BY MOUTH IN THE MORNING. 90 Tablet 2 09/09/2022 Active Levothyroxine Sodium 25 MCG Oral Tablet (Levoxyl)Indicati ons:Hypothyroidis m, unspecified type TAKE 1 TABLET BY MOUTH DAILY 30 MINUTES PRIOR TO BREAKFAST OR OTHER MEDS. 90 Tablet 3 11/01/2022 Active Metoprolol Succinate ER 100 MG Oral Tablet Extended Release 24 Hour (toPROL XL) Take 1 Tablet by mouth in the morning and 1 Tablet before bedtime. 180 Tablet 3 03/11/2023 Active Torsemide 20 MG Oral Tablet (Demadex) Take 3 Tablets by mouth daily AND 3 Tablets every afternoon. 0 03/17/2023 Active Torsemide 20 MG Oral Tablet (Demadex) Take 2 Tablets by mouth daily AND 2 Tablets every afternoon. 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 07/09/2021 Occlusion of common femoral artery 07/08/2021 Overview: Right Gastro-esophageal reflux disease without esophag itis 07/10/2020 Senile osteoporosis 07/10/2020 Chronic kidney disease, stage 3b 06/17/2020 Overview: Per CKD protocol Chronic diastolic heart failure 05/07/2020 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 heart failure and stage 3b chronic kidney disease 12/17/2019 Overview: Per CKD protocol Cerebrovascular disease 03/09/2019 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 Aortic atherosclerosis 01/02/2019 Permanent atrial fibrillation 01/02/2019 Bilateral lower extremity edema 09/01/2017 Chronic pain of left knee 09/01/2017 Dyslipidemia, goal LDL below 130 03/24/2012 History of CVA (cerebrovascular accident) 2012 Hypothyroidism 06/28/2008 Osteoarthrosis documented as of this encounter (statuses as of 03/17/2023) Resolved Problems Problem Noted Date Diagnosed Date Resolved Date Type 2 diabetes mellitus wit h stage 3b chronic kidney disease, without long-term current use of insulin 11/12/2021 03/19/2022 Open wnd of scalp 11/12/2021 03/19/2022 Diabetes mellitus with stage 3 chronic kidney disease 07/10/2020 03/19/2022 Chronic kidney disease, stage 3b 06/17/2020 11/12/2021 Overview: Per CKD protocol Type 2 diabetes mellitus wit h stage 3b chronic kidney disease 06/17/2020 11/12/2021 Overview: Per CKD protocol Diabetes mellitus with stage 3 chronic kidney disease 12/17/2019 06/19/2020 Overview: Per CKD protocol Paroxysmal atrial fibrillation 03/09/2019 07/08/2021 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 heart failure and stage 3 chronic kidney disease 01/02/201912/19 Overview: Per CKD protocol Type 2 diabetes mellitus wit h stage 3 chronic kidney disease, without long-term current use of insulin 05/15/2018 12/20/2019 Overview: Per CKD protocol Other chest pain 09/01/2017 04/26/2018 Benign hypertension with CKD (chronic kidney disease) stage III 10/15/2013 02/15/2019 Overview: history Hip fracture 04/15/2013 07/08/2021 KIDNEY DZ,CHRONIC (GFR 30-59) STAGE III 08/28/2009 06/19/2020 Overview: Per CKD Protocol, #1 Dyslipidemia, goal to be determined 01/21/2009 03/24/2012 Overview: Per Lipid Taxonomy. ADVANCE DIRECTIVE INFORMATION 10/30/2004 01/27/2017 Overview: No, Advance Directive brochure given to patient at prior appointment. Need for prophylactic vaccin ation and inoculation against viral disease 12/02/20002016 Overview: ICD-10 update of inactive term HTN, goal below 140/90 08/18 Osteoporosis 11/12/2021 PURE HYPERCHOLESTEROLEM 01/07 Overview: Per Lipid Taxonomy. documented as of this encounter (statuses as of 03/17/2023) Immunizations Name Administration Dates Next Due Pneumococcal Conjugate Vacc, 13 Valent (Prevnar) 11/14/2015 Pneumococcal Polysaccharide PPV23 (Pneumovax) 06/29/2010 Season Influenza, Cell Cultu re, 18+ Yrs, With Preserv (Flucelvax) 12/29/2012 Season Influenza, Quad, PF, Adjuvanted, 65+ Yrs, IM (FLUAD) 11/21/2019 Seasonal Influenza, PF, 6 M & above, IM , (FluLaval or Fluzone) 12/20/2017,12/01/2016 Seasonal Influenza, Quadriva lent Hd (Fluzone [...] drink = 0.6 oz pur e alcohol) PHQ-2 Answer Date Recorded PHQ-2 Score 0 01/04/2020 Sex and Gender Information Value Date Recorded Sex Assigned at Female 05/15/2018 1:09 PM EDT Gender Identity Female 05/15/2018 1:09 PM EDT Sexual Orientation Straight 05/15/2018 1: 09 PM EDT Job Start Date Occupation Industry Not on file Not on file Not on file documented as of this encounter Miscellaneous Notes * Telephone Encounter - Frederic Valente LPN - 03/17/2023 4:35 PM EST Sent patient a [employer] message to make aware. Medication list updated. ----- Message from TRACY Reyna sent at 03/17/2023 7:59 AM EST ----- No evidence of DVT per duplex. Please reach out to patient regarding prior telephone encounter withinstructions to increase her Lasix. Telephone encounter dated 03/14/2023 * Telephone Encounter - Maurisio Prasad OSA - 03/15/2023 4:40 PM EST Person calling: Otto Relationship to patient: Daughter Number to return call: [phone] Reason for call: Calling for results of lab work done on 03/11. Stated either a phone call or a pt portal message was okay for results. Provider Name:Kristina Ball documented in this encounter Plan of Treatment Upcoming Encounters Date Type Department Care Team (Late st Contact Info) Description 04/08/2023 4:00 PM EST Office Visit [facility] [address] [place] [id number] Ketan Jacob MD [address] [place] [address] Health Maintenance Due Date Last Done Comments COVID-19 Vaccine (#1) 04/06/1936 Zoster Vaccines (1 of 2) 10/07/1983 Hepatitis B (1 of 3 - Risk 3-dose series) 1993 DTaP,Tdap,and Td Vaccines (1 - Tdap) 12/22/2013 12/21/2013, 12/21/2013 DXA Scan 11/23/2015 11/22/2013, 08/2011, 04/18/2009, Additional history exists Albumin/Creatinine Ratio 03/09/2020 03/09/2019 Depression Screening 01/03/2021 01/04/2020 *BISPHONATE OR OTHER ACCEPTABLE MEDICATION NEEDED FOR OSTEOPOROSIS (REFER TO SMARTSET #1146) 01/23/2021 Influenza Vaccine (FLU shot) (#1) 2022 11/12/2021, 11/20/2020, 11/21/2019, Additional history exists CKD PHOS USE SMARTSET 17462 12/22/202212/08, 11/24/2020, 06/20/2018, Additional history exists HbA1c 03/19/2023 03/19/2022, 07/09, 11/24/2020, Additional history exists CKD HGB USE SMARTSET 42857 03/11/202403/11, 03/11/2023, 09/27/2022, Additional history exists TSH 03/11/2024 03/11/2023, 09/08, 12/04/2021, Additional history exists Pneumococcal Vaccine: 65+ Years Completed 11/14/2015, 06/29/2010 Diabetic Foot Exam Discontinued 08/05/2021, 1 03/05/2019, 07/31/2018 VITAMIN D LEVEL ONCE IN A LIFETIME-USE SMARTSET# [id number] Completed 03/19/2022, 07/19/2014, 10/15/2013, Additional history exists GARDASIL-HPV IMMUNIZATION SERIES Aged Out No longer eligible based on patient's age to complete this topic MENINGOCOCCAL (MENACTRA/MENVEO) Aged Out No longer eligible based on patient's age to complete this topic documented as of this encounter Medical Devices Not on filedocumented as of this encounter Visit Diagnoses Diagnosis Encounter for monitoring diuretic therapy- Primary Encounter for therapeutic drug monitoring documented in this encounter Advance Directives Documents on File Type Date Recorded 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 Code Status History Code Status Date Activated Date Inactivated Comments None 03/04/2004 12:53 PM 03/04/2004 1:53 PM Care Teams In Flight Refueling System Repairer Relationship Specialty Start Date End Date Ketan Jacob MD [address] [place] [address] PCP - General Internal Medicine 08/05/21 documented as of this encounter
--- OUTSIDE RECORDS SUMMARY | 2023-07-01 00:12 | External Medical Summary | Summary of Care ---
Author Name Unknown Organization [facility] Address [address] [place] [address] Phone [phone] Care Team Providers Care Oil Gauger Name Role Phone Ketan Jacob MD Primary Care Provider [phone] Encounter Details Date Type Department Care Team (Late st Contact Info) Description 03/14/2023 Telephone Cardiology, [facility] [address] [facility] [place] [address] Kristina Ball CRNP [address] [facility] [place] [address] Allergies Active Allergy Reactions Criticality Noted Date [...] daily. 1 Inhaler 1 06/20/2018 Active Nystatin 492382 UNIT/GM External Powder (Nystop)Indicatio ns:Intertrigo Apply topically to affected area 3 times a day. Apply to groin 60 g 1 11/20/2020 Active Nystatin 633850 UNIT/GM External CreamIndications: Intertrigo Apply topically to [...] AND 2 Tablets every afternoon. 0 02/18/2023 Discontinue d(Refill) documented as of this encounter [...] Encounter - Frederic Valente LPN - 03/17/2023 4:38 PM EST Addressed in other TE * Telephone Encounter - Kristina Ball CRNP - 03/14/2023 9:01 AM EST BMP is stable. BNP elevated. Please have patient increase Torsemide to 60 mg twice daily x3 days. (Currently taking Torsemide 40 mg twice daily). Keep vascular US appt on 03/16. Repeat BMP in 1 week. TRACY Onofre documented in this encounter Plan of Treatment Upcoming Encounters Date Type Department Care Team (Late st Contact Info) Description 04/08/2023 4:00 PM EST Office Visit [facility] [address] [place] [address] Ketan Jacob MD [address] [place] [address] Scheduled Orders Name Type Priority Associated Diagnoses Orde r Schedule BASIC METABOLIC PANEL Lab Routine Chronic diastolic heart failure (HCC) Expected: 03/21/2023, Expires: 03/14/2024 Health Maintenance Due Date Last Done Comments [...] Additional history exists CKD PHOS USE SMARTSET 97140 12/22/202212/08, 11/24/2020, 06/20/2018, Additional history exists HbA1c 03/19/2023 03/19/2022, 07/09, 11/24/2020, Additional history exists CKD HGB USE SMARTSET 30907 03/11/202403/11, 03/11/2023, 09/27/2022, Additional history exists TSH 03/11/2024 03/11/2023, 09/08, 12/04/2021, Additional history exists Pneumococcal Vaccine: 65+ Years Completed 11/14/2015, 06/29/2010 Diabetic Foot Exam Discontinued 08/05/2021, 1 03/05/2019, 07/31/2018 VITAMIN D LEVEL ONCE IN A LIFETIME-USE SMARTSET# [id number] Completed 03/19/2022, 07/19/2014, 10/15/2013, Additional history exists [...] failure (HCC)- Primary Chronic diastolic heart failure documented in this encounter Advance Directives Documents on File Type Date Recorded Patient Foxpro Developer 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 Code Status History Code Status Date Activated Date Inactivated Comments None 03/04/2004 12:53 PM 03/04/2004 1:53 PM Care Teams Oil Gauger Relationship Specialty Start Date End Date Ketan Jacob MD [address] [place] [address] PCP - General Internal Medicine 08/05/21 documented as of this encounter
--- OUTSIDE RECORDS SUMMARY | 2023-07-01 00:12 | External Medical Summary | Summary of Care ---
Author Name Unknown Organization [facility] Address [address] [place] [address] Phone [phone] Care Team Providers Care Dope Mixer Name Role Phone Ketan Jacob MD Primary Care Provider [phone] Reason for Visit * Reason Comments Follow Up Encounter Details Date Type Department Care Team (Late st Contact Info) Description 03/11/2023 2:00 PM EST Office Visit Cardiology, [facility] [address] [place] [address] Kristina Ball CRNP [address] [place] [address] Permanent atrial fibrillation (HCC)*; Chronic diastolic heart failure (HCC); HTN, goal below 140/90; Dyslipidemia, goal LDL below 70; Localized swelling of left lower leg Allergies Active Allergy Reactions Criticality Noted Date Comments Aspirin Nausea/vomiting 08/19/2011 documented as of this encounter (statuses as of 03/11/2023) Medications Medication Sig Dispensed Refills Start Date [...] 5 7 Active Nebulizers (NEBULIZER COMPRESSOR) MISCIndications:B ronchitis, complicated Inhale via nebulizer. Use as directed. 1 Each 1 8 Active Calcium Carb-Cholecalcife rol (OYSTERCAL-D) 500-400 MG-UNIT TABS TAKE 1 TABLET 3X A DAY, WITH MEALS, TO HELP WITH BONES 270 Tab 1 8 Active fluticasone (FLONASE) 50 MCG/ACT nasal sprayIndications: Sinus congestion Administer 2 Sprays into each nostril daily. 1 Inhaler 1 9 Active Nystatin 484617 UNIT/GM External Powder (Nystop)Indicatio ns:Intertrigo Apply topically to affected area 3 times a day. Apply to groin 60 g 1 1 Active Nystatin 200496 UNIT/GM External CreamIndications: Intertrigo Apply topically to [...] FOR CHOLESTEROL 90 Tablet 3 3 Active Vitamin B-12 1000 MCG Oral Tablet (Cyanocobalamin)I ndications:Encoun ter for long-term (current) use of other medications Take 1 Tablet by mouth in the morning. 100 Tablet 3 3 Active Spironolactone 25 MG Oral Tablet (Aldactone) Take 0.5 Tablets by mouth in the morning. 90 Tablet 3 3 Active Pantoprazole Sodium 40 MG Oral Tablet Delayed Release (Protonix)Indicat ions:Gastroesopha geal reflux disease TAKE 1 TABLET BY MOUTH EVERY DAY IN THE MORNING 90 Tablet 2 3 Active Clopidogrel Bisulfate 75 MG Oral Tablet (pLAVix)Indicatio ns:History of CVA (cerebrovascular accident) TAKE 1 TABLET (75 MG) BY MOUTH IN THE MORNING. 90 Tablet 2 3 Active Levothyroxine Sodium 25 MCG Oral Tablet (Levoxyl)Indicati ons:Hypothyroidis m, unspecified type TAKE 1 TABLET BY MOUTH DAILY 30 MINUTES PRIOR TO BREAKFAST OR OTHER MEDS. 90 Tablet 3 3 Active Torsemide 20 MG Oral Tablet (Demadex) Take 2 Tablets by mouth daily AND 2 Tablets every afternoon. 0 4 Active Metoprolol Succinate ER 100 MG Oral Tablet Extended Release 24 Hour (toPROL XL) Take 1 Tablet by mouth in the morning and 1 Tablet before bedtime. 180 Tablet 3 4 Active Metoprolol Tartrate 100 MG Oral Tablet (Lopressor)Indica tions:Paroxysmal atrial fibrillation (HCC) Take 1 Tablet by mouth in the morning and 1 Tablet before bedtime. 180 Tablet 3 3 03/11/19 24 Discontinued Baclofen 10 MG Oral Tablet (Lioresal) Take 0.5 Tablets by mouth in the morning and 0.5 Tablets before bedtime. 90 Tablet 1 3 03/11/19 24 Discontinued documented as of this encounter (statuses as of 03/11/2023) Active Problems Problem Noted Date Diagnosed Date [...] as of this encounter (statuses as of 03/11/2023) Resolved Problems Problem Noted Date Diagnosed Date [...] as of this encounter (statuses as of 03/11/2023) Immunizations Name Administration Dates Next Due Pneumococcal [...] Sign Reading Time Taken Comments Blood Pressure 108/60 03/11/2023 2:11 PM EST Pulse 98 03/11/2023 2:11 PM EST Temperature - - Respiratory Rate - - Oxygen Saturation 92% 03/11/2023 2:11 PM EST Inhaled Oxygen Concentration - - Weight 71.7 kg (158 lb) 03/11/2023 2:11 PM EST Height - - Body Mass Index 28.9 01/07/2023 4:06 PM EST documented in this encounter Progress Notes * Kristina Ball CRNP - 03/11/2023 2:00 PM EST Cardiology Outpatient Visit 03/11/2023 Primary Monogram Operator: Dr. Mondragon Past medical history: Permanent atrial fibrillation [id number] score of 7 (age 1, female, CHF, CVA 2). Chronic combined diastolic and systolic CHF History of ischemic cardiomyopathy, LVEF as low as 40-44% per echo 07/2021-- resolved per echo 11/2022 Chronic lower extremity lymphedema/venous insufficiency Hypertension History of CVA-- on Plavix Dementia HPI 87-year-old female presenting to the cardiology office today in routine follow- up. Was last evaluated by Dr. Garcia approximately 6 months ago, however, patient primarily follows with Dr. Mondragon. Today the patient presents with her daughter and granddaughter. Review of system limited due to dementia and significant hearing impairment. Daughter voices concerns regarding worsening left lower extremity edema. Now extending up to the knee. Recently had torsemide increased to 40 mg twice daily (previously 40 mg in the morning 20 mg in the evening) without much improvement in symptoms. Right leg also smells but usually improves by morning. Patient does not endorse any pain. Denies chest pain or shortness of breath. No lightheadedness. No orthopnea or PND. No fever, chills, cough, hematochezia, melena, or hemoptysis. Patient is compliant with all medications, and offers no side effects. Current Outpatient Medications Medication Sig Dispense Refill [...] into each nostril daily. 1 Inhaler1 Nystatin 215307 UNIT/GM External Powder (Nystop) Apply topically to affected area 3 times a day. Apply to groin 60 g 1 Nystatin 707464 UNIT/GM External Cream Apply topically to affected area 2 times a day. To affacted area for two weeks. 30 g 1 Triamcinolone Acetonide 0.1 % External Ointment (Aristocort) Apply to itchy/rashy areas on legs until resolved, then when flaring (see printed regimen on checkout sheet) 454 g 0 Magnesium 400 MG Oral Tablet Take 1 Tablet by mouth in the morning. 90 Tablet 3 Eliquis 5 MG Oral Tablet (Apixaban) TAKE 1 TABLET BY MOUTH EVERY DAY IN THE MORNING AND BEFORE BEDTIME 180 Tablet 3 Atorvastatin Calcium 10 MG Oral Tablet (Lipitor) TAKE 1 TABLET ONCE DAILY FOR CHOLESTEROL 90 Tablet3 Vitamin B-12 1000 MCG Oral Tablet (Cyanocobalamin) Take 1 Tablet by mouth in the morning. 100 Tablet 3 Spironolactone 25 MG Oral Tablet (Aldactone) Take 0.5 Tablets by mouth in the morning. 90 Tablet 3 Pantoprazole Sodium 40 MG Oral Tablet Delayed Release (Protonix) TAKE 1 TABLET BY MOUTH EVERY DAY IN THE MORNING 90 Tablet 2 Clopidogrel Bisulfate 75 MG Oral Tablet (pLAVix) TAKE 1 TABLET (75 MG) BY MOUTH IN THE MORNING. 90 Tablet 2 Levothyroxine Sodium 25 MCG Oral Tablet (Levoxyl) TAKE 1 TABLET BY MOUTH DAILY 30 MINUTES PRIOR TO BREAKFAST OR OTHER MEDS. 90 Tablet 3 Torsemide 20 MG Oral Tablet (Demadex) Take 2 Tablets by mouth daily AND 2 Tablets every afternoon. Metoprolol Succinate ER 100 MG Oral Tablet Extended Release 24 Hour (toPROL XL) Take 1 Tablet by mouth in the morning and 1 Tablet before bedtime. 180 Tablet 3 No current facility-administered medications for this visit. 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 Osteoarthrosis Osteoarthritis Osteoporosis Osteoporosis Past Surgical History: Procedure Laterality Date AORTOGRAM ABDOMINAL-TECH ONLY 07/08/2021 IMAGING SUPERVISION & INTERPRETATION ABDOMINAL AO performed by Silver Traore MD at [place] [facility] [place] ARTERIOGRAM EXTREMITY UNILATERAL Right 07/08/2021 IMAGING SUPERVISION & INTERPRETATION EXTREMITY UNILATERAL performed by Silver Traore MD at [facility] THROMBECTOMY, PERC PRIMARY ARTERIAL MECHANICAL, ADD-ON Right 07/08/2021 MECHANICAL THROMBECTOMY, ARTERIAL OR ARTERIAL BYPASS GRAFT, ADDITIONAL VESSEL performed by Silver Traore MD at [facility] THROMBECTOMY, PERC PRIMARY ARTERIAL MECHANICAL, INIT Right 07/08/2021 MECHANICAL THROMBECTOMY, ARTERIAL OR ARTERIAL BYPASS GRAFT, INITIAL VESSEL performed by Silver Traore MD at [place] [facility] Social History Tobacco Use Smoking status: Never Smokeless tobacco: Never Vaping Use Vaping Use: Never used Substance Use Topics Alcohol use: No Drug use: No Review of patient's allergies indicates: Allergen Reactions Aspirin Nausea/vomiting Review of Systems: See HPI for pertinent positives. All others negative, other than those noted in HPI. Physical Exam BP 108/60 | Pulse 98 | Wt 71.7 kg (158 lb) | SpO2 92% | BMI 28.90 kg/m | BSA 1.77 m General: No acute distress. A+Ox3. HEENT: Normocephalic. Atraumatic. Conjunctiva and sclera clear. NECK: No carotid bruits. No JVD. Carotid upstrokes are brisk. Heart: Irregular. S1 and S2 noted without murmur, rubs, gallops. PMI non displaced. Lungs: Clear to auscultation. No wheezes, rhonchi, rales. Abdomen: Normal bowel sounds. Soft. Nontender. No masses or organomegaly. No abdominal bruits. Extremities: RLE +2, LLE +3 extending up to knee. Venous stasis changes. No clubbing or cyanosis. Pulses: radial=2/4, posterior tibial=2/4, dorsalis pedis = 2/4. NEURO: No focal deficits. PSYCH: Normal. Lab data/imaging study review: Echo 11/2022 The examination is limited quality but adequate for evaluation of the referral indication. There is borderline diffuse left ventricular hypokinesis. The endocardial border is poorly delineated on the apical images and therefore analysis of regionalwall motion is suboptimal. The qualitative LV ejection fraction is 50-54% (normal). The left atrium is severely enlarged. Left atrial enlargement suggests diastolic left ventricular dysfunction. Mild aortic valve regurgitation is present. Mild mitral regurgitation is present. Mild tricuspid regurgitation is present. The estimated pulmonary artery systolic pressure is 37 mm Hg (upper limit of normal). Zio 06/2022 CONCLUSIONS: Duration: 3 days, 7 hours Atrial Fibrillation occurred continuously (100% burden), ranging from 61- 177 bpm (avg of 92 bpm). Isolated VEs were occasional (2.2%, 9572), VE Couplets were rare (<1.0%, 170), and no VE Triplets were present. Ventricular Bigeminy was present. No symptoms reported. Echo 07/2021 The examination is adequate to evaluate the referral indication. The qualitative LV ejection fraction is 40-44% (mildly reduced). There is a large sized apical, septal, anteroseptal, and inferior wall motion abnormality with hypokinesis of the segments. The right ventricular systolic function is qualitatively normal. Mild aortic valve regurgitation is present. Mild mitral regurgitation is present. Mild pulmonary hypertension is present. The estimated pulmonary artery systolic pressure is 45mm Hg. Impression/Plan: This is a 87 year old female who is being evaluated in the cardiology office for ongoing care/risk management for AFIB, HFpEF, HTN, and hyperlipidemia. 1. Permanent atrial fibrillation (HCC) -Permanent atrial fibrillation, asymptomatic -[id number] score of 7 (age 1, female, CHF, CVA 2). 1. Continue Eliquis 5 mg BID-- should renal function or weight reduce further patient will qualify for reduced dose. 2. Chronic diastolic heart failure (HCC) -Chronic combined diastolic and systolic CHF -History of ischemic cardiomyopathy, LVEF as low as 40-44% per echo 07/2021, resolved per echo 11/2022 -Chronic lower extremity lymphedema/venous insufficiency -NYHA class 1. Continue torsemide 40 mg twice daily and spironolactone 12.5 mg daily 2. Discontinue metoprolol tartrate in favor of metoprolol succinate 100 mg twice daily. 3. Concerns for left greater than right lower extremity edema. Patient is on Eliquis so the risk ofblood clot is low however she is very sedentary and has a history of blood clots in the past. Will obtain a lower extremity duplex bilateral lower extremities to rule out blood clot. Will also add onsome blood work including a BNP. Future considerations of increasing torsemide further. 3. HTN, goal below 140/90 -Blood pressure well controlled. Plan as stated above. 4. Dyslipidemia, goal LDL below 70 -LDL well controlled, 46 Continue atorvastatin 10 mg daily The patient agrees to the above plan and will call with additional questions or concerns. ER with all emergencies advised. Follow-up: Return in about 6 months (around 09/09/2023). | Check-out note: Leg duplex MIGUEL ÁNGEL I spent a total of 40 minutes on the date of service in preparation, delivery, and documentation ofthe care provided to Sumi Eng excluding any time spent in the performance of separately billed services. TRACY Boland [facility], Department of Cardiology This chart was completed in part utilizing [employer] Speech Voice Recognition Software. Grammatical errors, random word insertions, prounoun errors, and incomplete sentences are an occasional consequence of this system due to software limitations, ambient noise, and hardware issues. Any formal questions or concerns about the content, text, or information contained within the body of this dictation should be directly addressed to the provider for clarification. documented in this encounter Nursing Notes * Angela Owens, MICHELLE - 03/11/2023 2:00 PM EST Examination Room: 7 Name: Sumi Eng Date of : (1935) Reason for Visit: 6m Interim Hospitalization(s): none Problems/Concerns: left leg swelling Chest Pain/SOB: denied My [facility] is a way you can talk to [...] Care Team (Late st Contact Info) Description 03/16/2023 11:00 AM EST Imaging Vascular Lab, [facility] [address] [place] [address] 04/08/2023 4:00 PM EST Office Visit [facility] [address] [place] [id number] Ketan Jacob MD [address] [place], [place] [id number] Pending Results Name Type Priority Associated Diagnoses Date /Time TSH WITH FREE T4 IF INDICATED Lab Routine Permanent atrial fibrillation (HCC) Chronic diastolic heart failure (HCC) HTN, goal below 140/90 Dyslipidemia, goal LDL below 70 Localized swelling of left lower leg 03/11/2023 2:40 PM EST BNP, NT-PRO Lab Routine Permanent atrial fibrillation (HCC) Chronic diastolic heart failure (HCC) HTN, goal below 140/90 Dyslipidemia, goal LDL below 70 Localized swelling of left lower leg 03/11/2023 2:40 PM EST Scheduled Orders Name Type Priority Associated Diagnoses Orde r Schedule VASC DUPLEX VENOUS LE BILAT Medical Imaging Routine Permanent atrial fibrillation (HCC) Chronic diastolic heart failure (HCC) HTN, goal below 140/90 Dyslipidemia, goal LDL below 70 Localized swelling of left lower leg Expected: 03/11/2023, Expires: 04/08/2024 TSH WITH FREE T4 IF INDICATED Lab Routine Permanent atrial fibrillation (HCC) Chronic diastolic heart failure (HCC) HTN, goal below 140/90 Dyslipidemia, goal LDL below 70 Localized swelling of left lower leg Expected: 03/11/2023, Expires: 03/11/2024 BNP, NT-PRO Lab Routine Permanent atrial fibrillation (HCC) Chronic diastolic heart failure (HCC) HTN, goal below 140/90 Dyslipidemia, goal LDL below 70 Localized swelling of left lower leg Expected: 03/11/2023, Expires: 03/11/2024 Health Maintenance Due Date Last Done Comments [...] Additional history exists CKD PHOS USE SMARTSET 80301 12/22/202212/08, 11/24/2020, 06/20/2018, Additional history exists HbA1c 03/19/2023 03/19/2022, 07/09, 11/24/2020, Additional history exists CKD HGB USE SMARTSET 37518 09/28/202309/27, 09/27/2022, 03/19/2022, Additional history exists TSH 09/28/2023 09/27/2022, 11/08, 11/24/2020, Additional history exists Pneumococcal Vaccine: 65+ Years Completed 11/14/2015, 06/29/2010 Diabetic Foot Exam Discontinued 08/05/2021, 1 03/05/2019, 07/31/2018 VITAMIN D LEVEL ONCE IN A LIFETIME-USE SMARTSET# [id number] Completed 03/19/2022, 07/19/2014, 10/15/2013, Additional history exists GARDASIL-HPV IMMUNIZATION SERIES Aged Out No longer eligible based on patient's age to complete this topic MENINGOCOCCAL (MENACTRA/MENVEO) Aged Out No longer eligible based on patient's age to complete this topic documented as of this encounter Medical Devices Not on filedocumented as of this encounter Visit Diagnoses Diagnosis Permanent atrial fibrillation (HCC)- Primary Atrial fibrillation Chronic diastolic heart failure (HCC) Chronic diastolic heart failure HTN, goal below 140/90 Unspecified essential hypertension Dyslipidemia, goal LDL below 70 Other and unspecified hyperlipidemia Localized swelling of left lower leg documented in this encounter Advance Directives Documents on File Type Date Recorded 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 Code Status History Code Status Date Activated Date Inactivated Comments None 03/04/2004 12:53 PM 03/04/2004 1:53 PM Care Teams Dope Mixer Relationship Specialty Start Date End Date Ketan Jacob MD [address] [place] [address] PCP - General Internal Medicine 08/05/21 documented as of this encounter"
--- OUTSIDE RECORDS SUMMARY | 2023-07-01 00:12 | External Medical Summary | Summary of Care ---
Author Name Unknown Organization [facility] Address [address] [place] [address] Phone [phone] Care Team Providers Care Websphere Commerce Developer Name Role Phone Ketan Jacob MD Primary Care Provider [phone] Reason for Visit * Reason Comments eRx-Medication Refill Encounter Details Date Type Department Care Team (Late st Contact Info) Description 06/10/2023 Refill Cardiology, [facility] [address] [place] [address] Ketan Jacob MD [address] [place] [address] HTN, goal below 140/90*; Permanent atrial fibrillation (HCC); Chronic diastolic heart failure (HCC) Allergies Active Allergy Reactions Criticality Noted Date Comments Aspirin Nausea/vomiting 08/19/2011 documented as of this encounter (statuses as of 06/10/2023) Medications Medication Sig Dispensed Refills Start Date [...] nostril daily. 1 Inhaler 1 06/20/2018 Active Triamcinolone Acetonide 0.1 % External Ointment [...] 3 Tablets every afternoon. 0 03/17/2023 Active Nystatin 261594 UNIT/GM External Powder (Nystop)Indications :Intertrigo Apply topically to affected area 3 times a day. Apply to groin 60 g 1 04/08/2023 Active Nystatin 783484 UNIT/GM External CreamIndications:In tertrigo Apply topically to affected area 2 times a day. To affacted area for two weeks. 30 g 1 04/08/2023 Active Magnesium Oxide 400 MG Oral TabletIndications:H TN, goal below 140/90,Permanent atrial fibrillation (HCC),Chronic diastolic heart failure (HCC) TAKE 1 TABLET BY MOUTH EVERY DAY IN THE MORNING 90 Tablet 3 06/10/2023 Active documented as of this encounter (statuses as of 06/10/2023) Active Problems Problem Noted Date Diagnosed Date [...] as of this encounter (statuses as of 06/10/2023) Resolved Problems Problem Noted Date Diagnosed Date [...] as of this encounter (statuses as of 06/10/2023) Immunizations Name Administration Dates Next Due Pneumococcal [...] Telephone Encounter - Ketan Jacob MD - 06/10/2023 9:38 AM EDTSigned Prescriptions: Disp Refills Magnesium Oxide 400 MG Oral Tablet 90 Tab*3 Sig: TAKE 1 TABLET BY MOUTH EVERY DAY IN THE MORNING Authorizing Provider: KETAN JACOB * Telephone Encounter - Kristina Ball CRNP - 06/10/2023 9:33 AM EDT Pending Prescriptions: Disp Refills Magnesium Oxide 400 MG Oral Tablet 90 Tab*3 Sig: TAKE 1 TABLET BY MOUTH EVERY DAY IN THE MORNING * Telephone Encounter - Marian Rizzo CMA - 06/10/2023 9:24 AM EDTPending Prescriptions: Disp Refills Magnesium Oxide 400 MG Oral Tablet 90 Tab*3 Sig: TAKE 1 TABLET BY MOUTH EVERY DAY IN THE MORNING * Telephone Encounter - Marian Rizzo CMA - 06/10/2023 9:24 AM EDT Did you pend patient's preferred pharmacy and medication before forwarding?yes Pharmacy: [id number] [facility] Pending Prescriptions: Disp Refills Magnesium Oxide 400 MG Oral Tablet [Pharm*90 Tab*3 Sig: TAKE 1 TABLET BY MOUTH EVERY DAY IN THE MORNING Last Visit: 03/11/2023 (in office), 05/07/2020 (telemedicine) Next Visit: Visit date not found If no future appointments scheduled, and last appointment is greater than a year ago, please schedule patient for a follow-up appointment Last date the medication was ordered: 05-06-2022 Is this request for a controlled substance?No Urine Drug Screen:No results found. However, due to the size of the patient record, not all encounters were searched. Please check Results Review for a complete set of results. Patient Phone Numbers Labs: Lab Results Component Value Date/Time CREAT 1.3 (H) 03/11/2023 02:40 PM CREAT 1.5 (H) 12/17/2019 11:18 AM POTASSIUM 4.1 03/11/2023 02:40 PM POTASSIUM 3.5 07/08/2021 09:10 AM POTASSIUM 4.3 12/17/2019 11:18 AM TSH 4.46 (H) 03/11/2023 02:40 PM TSH 3.13 08/06/2019 02:18 PM TSH 4.60 02/20/1996 02:00 PM LDLCALC 46 07/12/2022 03:42 PM LDLCALC 44 07/23/2018 12:00 AM LDLCALC 62 01/27/2017 02:23 PM ALT 11 03/19/2022 04:52 PM ALT 7 (L) 08/06/2019 02:18 PM ALT 17 02/20/1996 02:00 PM HGBA1C 6.1 (H) 03/19/2022 04:52 PM HGBA1C 6.1 (H) 01/02/2019 04:04 PM documented in this encounter Plan of Treatment Health Maintenance Due Date Last Done Comments Zoster Vaccines (1 of 2) 10/07/1983 DTaP,Tdap,and Td Vaccines (1 - Tdap) 12/22/2013 12/21/2013, 12/21/2013 DXA Scan 11/23/2015 11/22/2013, 0908/2011, 04/18/2009, Additional history exists Albumin/Creatinine Ratio 03/09/2020 03/09/2019 *BISPHONATE OR OTHER ACCEPTABLE MEDICATION NEEDED FOR OSTEOPOROSIS (REFER TO SMARTSET #1146) 01/23/2021 COVID-19 Vaccine ( - 2022- season) 2022 CKD PHOS USE SMARTSET 38499 12/22/202212/08, 11/24/2020, 06/20/2018, Additional history exists HbA1c 03/19/2023 03/19/2022, 07/09, 11/24/2020, Additional history exists Influenza Vaccine (FLU shot) (Season Ended) 2023 11/12/2021, 11/20/2020, 11/21/2019, Additional history exists CKD HGB USE SMARTSET 30385 03/11/202403/11, 03/11/2023, 09/27/2022, Additional history exists TSH 03/11/2024 03/11/2023, 09/08, 12/04/2021, Additional history exists Pneumococcal Vaccine: 65+ Years Completed 11/14/2015, 06/29/2010 Diabetic Foot Exam Discontinued 08/05/2021, 1 03/05/2019, 07/31/2018 VITAMIN D LEVEL ONCE IN A LIFETIME-USE SMARTSET# [id number] Completed 03/19/2022, 07/19/2014, 10/15/2013, Additional history exists [...] as of this encounter Visit Diagnoses Diagnosis HTN, goal below 140/90- Primary Unspecified essential hypertension Permanent atrial fibrillation (HCC) Atrial fibrillation Chronic diastolic heart failure (HCC) Chronic diastolic heart failure documented in this encounter Advance Directives Documents on File Type Date Recorded 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 Code Status History Code Status Date Activated Date Inactivated Comments None 03/04/2004 12:53 PM 03/04/2004 1:53 PM Care Teams Websphere Commerce Developer Relationship Specialty Start Date End Date Ketan Jacob MD [address] [place] [address] PCP - General Internal Medicine 08/05/21 documented as of this encounter
--- OUTSIDE RECORDS SUMMARY | 2023-07-01 00:12 | External Medical Summary | Summary of Care ---
Author Name Unknown Organization [facility] Address [address] [place] [address] Phone [phone] Care Team Providers Care Testing And Regulating Chief Name Role Phone Ketan Jacob MD Primary Care Provider [phone] Reason for Visit * Reason Onset Date Comments Medication Refill 04/08/2023 Encounter Details Date Type Department Care Team (Late st Contact Info) Description 04/08/[address] [facility] [address] [place] [id number] Cathleen Infante, DO [address] [place] [address] Intertrigo Allergies Active Allergy Reactions Criticality Noted Date Comments Aspirin Nausea/vomiting 08/19/2011 documented as of this encounter (statuses as of 04/08/2023) Medications Medication Sig Dispensed Refills Start Date [...] Tablets every afternoon. 0 03/17/2023 Active Nystatin 211636 UNIT/GM External Powder (Nystop)Indicatio ns:Intertrigo Apply topically to affected area 3 times a day. Apply to groin 60 g 1 04/08/2023 Active Nystatin 261660 UNIT/GM External CreamIndications: Intertrigo Apply topically to affected area 2 times a day. To affacted area for two weeks. 30 g 1 04/08/2023 Active Nystatin 104014 UNIT/GM External Powder (Nystop)Indicatio ns:Intertrigo Apply topically to affected area 3 times a day. Apply to groin 60 g 1 11/20/2020 4 Discontinue d(Refill) Nystatin 363775 UNIT/GM External CreamIndications: Intertrigo Apply topically to affected area 2 times a day. To affacted area for two weeks. 30 g 1 11/20/2020 4 Discontinue d(Refill) documented as of this encounter (statuses as of 04/08/2023) Active Problems Problem Noted Date Diagnosed Date [...] as of this encounter (statuses as of 04/08/2023) Resolved Problems Problem Noted Date Diagnosed Date [...] as of this encounter (statuses as of 04/08/2023) Immunizations Name Administration Dates Next Due Pneumococcal [...] Telephone Encounter - Ketan Jacob MD - 04/08/2023 1:06 PM ESTSigned Prescriptions: Disp Refills Nystatin 444366 UNIT/GM External Powder (N*60 g 1 Sig: Apply topically to affected area 3 times a day. Apply to groin Authorizing Provider: KETAN JACOB Nystatin 342585 UNIT/GM External Cream 30 g 1 Sig: Apply topically to affected area 2 times a day. To affacted area for two weeks. Authorizing Provider: DALIA JACOB ON * Telephone Encounter - Arlin Nathan RPh - 04/08/2023 1:01 PM EST Pending Prescriptions: Disp Refills Nystatin 254118 UNIT/GM External Powder (N*60 g 1 Sig: Apply topically to affected area 3 times a day. Apply to groin Nystatin 293327 UNIT/GM External Cream 30 g 1Sig: Apply topically to affected area 2 times a day. To affacted area for two weeks. documented in this encounter Plan of Treatment Upcoming Encounters Date Type Department Care Team (Late st Contact Info) Description 04/21/2023 5:00 PM EDT Office Visit [facility] [address] [place] [address] Ketan Jacob MD [address] [place] [address] Health Maintenance Due Date Last Done Comments Zoster Vaccines (1 of 2) 10/07/1983 DTaP,Tdap,and Td Vaccines (1 - Tdap) 12/22/2013 12/21/2013, 12/21/2013 DXA Scan 11/23/2015 11/22/2013, 08/2011, 04/18/2009, Additional history exists Albumin/Creatinine Ratio 03/09/2020 03/09/2019 Depression Screening 01/03/2021 01/04/2020 *BISPHONATE OR OTHER ACCEPTABLE MEDICATION NEEDED FOR OSTEOPOROSIS (REFER TO SMARTSET #1146) 01/23/2021 COVID-19 Vaccine ( - season) 2022 Influenza Vaccine (FLU shot) (#1) 2022 11/12/2021, 11/20/2020, 11/21/2019, Additional history exists CKD PHOS USE SMARTSET 49315 12/22/202212/08, 11/24/2020, 06/20/2018, Additional history exists HbA1c 03/19/2023 03/19/2022, 07/09, 11/24/2020, Additional history exists CKD HGB USE SMARTSET 94917 03/11/202403/11, 03/11/2023, 09/27/2022, Additional history exists TSH 03/11/2024 03/11/2023, 09/08, 12/04/2021, Additional history exists Pneumococcal Vaccine: 65+ Years Completed 11/14/2015, 06/29/2010 Diabetic Foot Exam Discontinued 08/05/2021, 1 03/05/2019, 07/31/2018 VITAMIN D LEVEL ONCE IN A LIFETIME-USE SMARTSET# [id number] Completed 03/19/2022, 07/19/2014, 10/15/2013, Additional history exists [...] as of this encounter Visit Diagnoses Diagnosis Intertrigo Other specified erythematous condition documented in this encounter Advance Directives Documents on File Type Date Recorded Patient Commodities Manager 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 Code Status History Code Status Date Activated Date Inactivated Comments None 03/04/2004 12:53 PM 03/04/2004 1:53 PM Care Teams Testing And Regulating Chief Relationship Specialty Start Date End Date Ketan Jacob MD [address] [place] [address] PCP - General Internal Medicine 08/05/21 documented as of this encounter
--- OUTSIDE RECORDS SUMMARY | 2023-07-01 00:12 | External Medical Summary ---
Author Name Unknown Address Unknown Organization [facility] [address] [place] [address] Laboratory Report Ordering Provider Test Date Status FRED CARUSO 03/11/2023 14:40:37 Final Observation Date Value Abnormality Reference (Units ) Status BUN 03/11/2023 14:40:37 17 6-20 (mg/dL) Final Creatinine 03/11/2023 14:40:37 1.3 Above high normal 0.5-1.0 (mg/dL) Final Glomerular filtration rate/1.73 sq M.predicted [Volume Rate/Area] in Serum, Plasma or Blood by Creatinine-based formula (CKD-EPI) 03/11/2023 14:40:37 38 Below low normal >=60 (mL/min) Final eGFR is calculated based on the CKD-EPI 2020 equation SODIUM 03/11/2023 14:40:37 141 135-146 (m mol/L) Final Potassium 03/11/2023 14:40:37 4.1 3.5-5.1 (m mol/L) Final Cl 03/11/2023 14:40:37 96 Below low normal 98- 107 (mmol/L) Final CO2 03/11/2023 14:40:37 35 Above high normal 22 -32 (mmol/L) Final Anion gap 03/11/2023 14:40:37 10 7-15 (mmol /L) Final Glucose 03/11/2023 14:40:37 170 Above high normal 70 -120 (mg/dL) Final Calcium 03/11/2023 14:40:37 8.2 Below low normal 8.4 -10.2 (mg/dL) Final [facility] [address] [place] [address]
--- OUTSIDE RECORDS SUMMARY | 2023-07-01 00:12 | External Medical Summary ---
Author Name Unknown Address Unknown Organization [facility] [address] [place] [address] Laboratory Report Ordering Provider Test Date Status FRED CARUSO 03/11/2023 14:40:37 Final Observation Date Value Abnormality Reference (Units ) Status WBC, Total 03/11/2023 14:40:37 10.18 4.00-10.8 0 (K/uL) Final RBC 03/11/2023 14:40:37 4.18 3.85-5.15 (M/uL) Final Hemoglobin 03/11/2023 14:40:37 10.7 Below low normal 12 .0-15.3 (g/dL) Final HCT 03/11/2023 14:40:37 35.2 Below low normal 36. 0-45.2 (%) Final MCV 03/11/2023 14:40:37 84.2 81.5-97.5 (fL) Final MCH 03/11/2023 14:40:37 25.6 27.0-34.0 (pg) Final MCHC 03/11/2023 14:40:37 30.4 32.0-36.0 (g/dL) Final RDW 03/11/2023 14:40:37 17.3 11.5-15.5 (%) Final Platelets 03/11/2023 14:40:37 285 140-400 (K /uL) Final MPV 03/11/2023 14:40:37 10.6 6.6-11.1 ( fL) Final [facility] [address] [place] [address]
--- OUTSIDE RECORDS SUMMARY | 2023-07-01 00:12 | External Medical Summary | Summary of Care ---
Author Name Unknown Organization [facility] Address [address] [place] [address] Phone [phone] Care Team Providers Care Creative Services Manager Name Role Phone Ketan Jacob MD Primary Care Provider [phone] Reason for Visit * Reason Comments Outpatient Testing Encounter Details Date Type Department Care Team (Late st Contact Info) Description 03/11/2023 2:50 PM EST Laboratory Laboratory, [facility] [address] [place] [address] [facility] [address] [place] [address] Leg swelling; Permanent atrial fibrillation (HCC); Chronic diastolic heart failure (HCC); Chronic kidney disease, stage 3b (HCC); Encounter for monitoring diuretic therapy; HTN, goal below 140/90; Dyslipidemia, goal LDL [...] daily. 1 Inhaler 1 06/20/2018 Active Nystatin 894697 UNIT/GM External Powder (Nystop)Indications :Intertrigo Apply topically to affected area 3 times a day. Apply to groin 60 g 1 11/20/2020 Active Nystatin 469899 UNIT/GM External CreamIndications:In tertrigo Apply topically to [...] OTHER MEDS. 90 Tablet 3 11/01/2022 Active Torsemide 20 MG Oral Tablet (Demadex) Take 2 Tablets by mouth daily AND 2 Tablets every afternoon. 0 02/18/2023 Active Metoprolol Succinate ER 100 MG Oral Tablet Extended Release 24 Hour (toPROL XL) Take 1 Tablet by mouth in the morning and 1 Tablet before bedtime. 180 Tablet 3 03/11/2023 Active documented as of this encounter (statuses [...] 03/16/2023 11:00 AM EST Imaging Vascular Lab, [facility] [address] [facility], [address] [place] [address] 04/08/2023 4:00 PM EST [facility] [address] [facility] [address] [facility]an [facility] [address] [facility] [address] Pending Results Name Type Priority Associated Diagnoses Date /Time BASIC METABOLIC PANEL Lab Routine Leg swelling Permanent atrial fibrillation (HCC) Chronic diastolic heart failure (HCC) Chronic kidney disease, stage 3b (HCC) 03/11/2023 2:40 PM EST CBC WITH WBC DIFFERENTIAL Lab Routine Leg swelling Permanent atrial fibrillation (HCC) Chronic diastolic heart failure (HCC) Chronic kidney disease, stage 3b (HCC) 03/11/2023 2:40 PM EST TSH WITH FREE T4 IF INDICATED Lab [...] left lower leg 03/11/2023 2:40 PM EST CBC Lab Routine Leg swelling Permanent atrial fibrillation (HCC) Chronic diastolic heart failure (HCC) Chronic kidney disease, stage 3b (HCC) 03/11/2023 2:40 PM EST DIFFERENTIAL, AUTOMATED Lab Routine Leg swelling Permanent atrial fibrillation (HCC) Chronic diastolic heart failure (HCC) Chronic kidney disease, stage 3b (HCC) 03/11/2023 2:40 PM EST Health Maintenance Due Date Last Done Comments [...] Additional history exists CKD PHOS USE SMARTSET 75955 12/22/202212/08, 11/24/2020, 06/20/2018, Additional history exists HbA1c 03/19/2023 03/19/2022, 07/09, 11/24/2020, Additional history exists CKD HGB USE SMARTSET 68642 09/28/202309/27, 09/27/2022, 03/19/2022, Additional history exists TSH 09/28/2023 09/27/2022, 11/08, 11/24/2020, Additional history exists Pneumococcal Vaccine: 65+ Years Completed 11/14/2015, 06/29/2010 Diabetic Foot Exam Discontinued 08/05/2021, 1 03/05/2019, 07/31/2018 VITAMIN D LEVEL ONCE IN A LIFETIME-USE SMARTSET# 88392 Completed 03/19/2022, 07/19/2014, 10/15/2013, Additional history exists GARDASIL-HPV IMMUNIZATION SERIES Aged Out No longer eligible based on patient's age to complete this topic MENINGOCOCCAL (MENACTRA/MENVEO) Aged Out No longer eligible based on patient's age to complete this topic documented as of this encounter Medical Devices Not on filedocumented as of this encounter Visit Diagnoses Diagnosis Leg swelling Swelling of limb Permanent atrial fibrillation (HCC) Atrial fibrillation Chronic diastolic heart failure (HCC) Chronic diastolic heart failure Chronic kidney disease, stage 3b (HCC) Encounter for monitoring diuretic therapy Encounter for therapeutic drug monitoring HTN, goal below 140/90 Unspecified essential hypertension Dyslipidemia, goal LDL below 70 Other and unspecified hyperlipidemia Localized swelling of left lower leg documented in this encounter Advance Directives Documents on File Type Date Recorded Patient Manager Human Resources 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 Code Status History Code Status Date Activated Date Inactivated Comments None 03/04/2004 12:53 PM 03/04/2004 1:53 PM Care Teams Creative Services Manager Relationship Specialty Start Date End Date Ketan Jacob MD [address] [place] [address] PCP - General Internal Medicine 08/05/21 documented as of this encounter
--- OUTSIDE RECORDS SUMMARY | 2023-07-01 00:12 | External Medical Summary ---
Author Name Unknown Address Unknown Organization K01:[facility] - [address] [place] [address] Laboratory Report Ordering Provider Test Date Status ADAM THOMPSON 03/11/2023 14:40:37 Final Exclude Heart Failure: <300 pg/mL
Diagnose Heart Failure:
Age <50 yr: >450 pg/mL
50-75 yr: >900 pg/mL
>75 yr: >1800 pg/mL
GFR is 30-59 mL/min: >1200 pg/mL or Age- adjusted values
GFR <30 mL/min: do not use, not reliable

Prognostic threshold: 1000 pg/mL Observation Date Value Abnormality Reference (Units ) Status BNP, Pro-hormone 03/11/2023 14:40:37 6374 Above high no rmal <300 (pg/mL) Final Performing Location [facility] [place] - [address] [place] [address]
--- OUTSIDE RECORDS SUMMARY | 2023-07-01 00:13 | External Medical Summary | Summary of Care ---
Author Name Unknown Organization [facility] Address [address] [place] [address] Phone [phone] Care Team Providers Care Shot Fireman Name Role Phone Ketan Jacob MD Primary Care Provider [phone] Reason for Referral * Evaluate & Treat - Unlimited Visits (Within 10 days (routine)) - Authorized Specialty Diagnoses / Procedures Referred By Contac t Referred To Contact Wound Care Diagnoses Leg swelling Open wound of both lower extremities, initial encounter Ketan Jacob MD [address] [place] [address] Referral ID Status Reason Start Date Expiration Date Visits Requested Visits Authorized [id number] Authorized Specialty Services Required 01/07/2023 999 999 Question Answer Referral Priority Within 10 days (routine) Where should this appointment be scheduled? [facility] Comments Assess for: Other: chronic open /recurrent wound with leg swelling Reason for Visit * Reason Comments Hospital Follow-Up Fluid in lungs, and edema on both feet Encounter Details Date Type Department Care Team (Late st Contact Info) Description 01/07/2023 4:00 PM EST Office Visit 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 1 Inhaler 1 06/20/2018 Active Nystatin 310502 UNIT/GM External Powder (Nystop)Indications :Intertrigo Apply topically to affected area 3 times a day. Apply to groin 60 g 1 11/20/2020 Active Nystatin 390763 UNIT/GM External CreamIndications:In tertrigo Apply topically to [...] as of this encounter (statuses as of 01/21/2023) Active Problems Problem Noted Date Diagnosed Date [...] as of this encounter (statuses as of 01/21/2023) Resolved Problems Problem Noted Date Diagnosed Date [...] as of this encounter (statuses as of 01/21/2023) Immunizations Name Administration Dates Next Due Pneumococcal [...] Sign Reading Time Taken Comments Blood Pressure 108/76 01/07/2023 4:06 PM EST Pulse 98 01/07/2023 4:06 PM EST Temperature 36.2 C (97.1 F) 01/07/2023 4:06 PM ES T Respiratory Rate 18 01/07/2023 4:06 PM EST Oxygen Saturation 96% 01/07/2023 4:06 PM EST Inhaled Oxygen Concentration - - Weight - - Height 157.5 cm (5' 2") 01/07/2023 4:06 PM EST Body Mass Index - - documented in this encounter Progress Notes * Ketan Jacob MD - 01/07/2023 4:09 PM EST Subjective Sumi Eng is a 87 year old female. Chief Complaint Patient presents with Hospital Follow-Up Fluid in lungs, and edema on both feet HPI: Here for hospital f/u Admission Jan 01 Discharge Decjan 05 Dx : CHF , afib , chronic leg swelling with recurrent wound Needs wound clinic referral Known CHF, CAD, last year EF 40 %, a fib on eliquis, hx of thrombus, occlusion of artery , CVA , CKD Taking torsemide 40 + 20 mg daily Open sores from leg swelling Mild dementia + PMH: Patient Active Problem List Diagnosis Code Osteoarthrosis M19.90 Hypothyroidism E03.9 Dyslipidemia, goal LDL below 130 E78.5 History of CVA (cerebrovascular accident) Z86.73 Bilateral lower extremity edema R60.0 Chronic pain of left knee M25.562, G89.29 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 Aortic atherosclerosis ([facility]) I70.0 Permanent atrial fibrillation ([facility]) I48.21 Cerebrovascular disease I67.9 Hypertensive heart and kidney disease with chronic diastolic congestive heart failure and stage 3b chronic kidney disease (HCC) I13.0, I50.32, N18.32 Chronic diastolic heart failure (HCC) I50.32 Chronic kidney disease, stage 3b ([facility]) N18.32 Gastro-esophageal reflux disease without esophagitis K21.9 Senile osteoporosis M81.0 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 Incontinence Supply Disposable (ATTENDS BRIEFS CLASSIC MEDIUM) [facility] Use up to 4- 5 times a day for incontinence 5 Each 5 Nebulizers (NEBULIZER COMPRESSOR) [facility] Inhale via nebulizer. Use as directed. 1 Each 1 Calcium Carb-Cholecalciferol (OYSTERCAL-D) 500-400 MG-UNIT TABS TAKE 1 TABLET 3X A DAY, WITH MEALS,TO HELP WITH BONES 270 Tab 1 fluticasone (FLONASE) 50 MCG/ACT nasal spray Administer 2 Sprays into each nostril daily. 1 Inhaler1 Nystatin 602560 UNIT/GM External Powder (Nystop) Apply topically to affected area 3 times a day. Apply to groin 60 g 1 Nystatin 622060 UNIT/GM External Cream Apply topically to affected [...] 1 Tablet every afternoon. 270 Tablet 0 Levothyroxine Sodium 25 MCG Oral Tablet (Levoxyl) TAKE 1 TABLET BY MOUTH DAILY 30 MINUTES PRIOR TO BREAKFAST OR OTHER MEDS. 90 Tablet 3 No current facility-administered medications for [...] performed by Silver Tra[place] [facility] [place] ARTERIOGRAM EXTREMITY UNILATERAL Right 07/08/2021 IMAGING SUPERVISION & INTERPRETATION EXTREMITY UNILATERAL performed by Silver Traore MD at [facility] THROMBECTOMY, PERC PRIMARY ARTERIAL MECHANICAL, ADD-ON Right 07/08/2021 MECHANICAL THROMBECTOMY, ARTERIAL OR ARTERIAL BYPASS GRAFT, ADDITIONAL VESSEL performed by Silver Traore MD at [facility] THROMBECTOMY, PERC PRIMARY ARTERIAL MECHANICAL, INIT Right 07/08/2021 MECHANICAL THROMBECTOMY, ARTERIAL OR ARTERIAL BYPASS GRAFT, INITIAL VESSEL performed by Silver Tra[place] [facility] [place] Review of patient's allergies indicates: Allergen Reactions [...] file Review of Systems Constitutional: Positive for fatigue. Negative for activity change, appetite change, chills, diaphoresis, fever and unexpected weight change. Respiratory: Negative for cough, chest tightness, shortness of breath and wheezing. Cardiovascular: Positive for leg swelling. Negative for chest pain and palpitations. Gastrointestinal: Negative for abdominal distention and abdominal pain. Endocrine: Negative. Musculoskeletal: Positive for arthralgias and gait problem. Neurological: Negative for headaches. Hematological: Bruises/bleeds easily. Psychiatric/Behavioral: Positive for dysphoric mood. Negative for agitation and behavioral problems. The patient is nervous/anxious. Objective BP 108/76 (BP Site: Left Arm, BP Position: Sitting, BP Cuff Size: Regular) | Pulse 98 | Temp 36.2 C (97.1 F) (Temporal Artery) | Resp 18 | Ht 1.575 m (5' 2") | SpO2 96% | BMI 27.58 kg/m | BSA 1.73 m Physical Exam Constitutional: General: She is not in acute distress. Appearance: Normal appearance. She is not ill-appearing, toxic-appearing or diaphoretic. HENT: Head: Normocephalic and atraumatic. Eyes: Extraocular Movements: Extraocular movements intact. Cardiovascular: Rate and Rhythm: Tachycardia present. Rhythm irregular. Heart sounds: Murmur heard. Pulmonary: Effort: Pulmonary effort is normal. No respiratory distress. Breath sounds: No stridor. No wheezing, rhonchi or rales. Chest: Chest wall: No tenderness. Musculoskeletal: Right lower leg: Edema present. Left lower leg: Edema present. Skin: Findings: Bruising and lesion present. Neurological: General: No focal deficit present. Mental Status: She is alert. Psychiatric: Behavior: Behavior normal. ASSESSMENT/PLAN: Leg swelling (Primary) - WOUND CARE REFERRAL OP - BASIC METABOLIC PANEL; Future; Expected date: 01/07/2023 - CBC WITH WBC DIFFERENTIAL; Future; Expected date: 01/07/2023 Open wound of both lower extremities, initial encounter - WOUND CARE REFERRAL OP Permanent atrial fibrillation (HCC) - BASIC METABOLIC PANEL; Future; Expected date: 01/07/2023 - CBC WITH WBC DIFFERENTIAL; Future; Expected date: 01/07/2023 Chronic diastolic heart failure (HCC) - BASIC METABOLIC PANEL; Future; Expected date: 01/07/2023 - CBC WITH WBC DIFFERENTIAL; Future; Expected date: 01/07/2023 Chronic kidney disease, stage 3b (HCC) - BASIC METABOLIC PANEL; Future; Expected date: 01/07/2023 - CBC WITH WBC DIFFERENTIAL; Future; Expected date: 01/07/2023 Follow Up: Return in about 3 months (around 04/08/2023) for Clinic Visit. | For: Clinic Visit | Check-out note: Print out lab orders And 2 wks non fasting blood tests Schedule with wound clinic Cont current meds And f/u blood test F/u with cardio, wound clinic Ketan Jacob MD documented in this encounter Nursing Notes * Darya Awan CCMA - 01/07/2023 4:05 PM EST Sumi Eng is a 87 year old female who presents today for Chief Complaint Patient presents with Hospital Follow-Up Fluid in lungs, and edema on both feet Pt's granddaughter states that pt needs a referral to the wound clinic documented in this encounter Plan of Treatment Upcoming Encounters Date Type Department Care Team (Late st Contact Info) Description 03/15/2023 2:30 PM EST Office Visit Cardiology, [facility] [address] [place] [address] Angelika Guillen PA-C [address] [place] [address] 04/08/2023 4:00 PM EST Office Visit [facility] [address] [place] [id number] Ketan Jacob MD [address] [place] [address] Scheduled Orders Name Type Priority Associated Diagnoses Orde r Schedule BASIC METABOLIC PANEL Lab Routine Leg swelling Permanent atrial fibrillation (HCC) Chronic diastolic heart failure (HCC) Chronic kidney disease, stage 3b (HCC) Expected: 01/07/2023 (Approximate), Expires: 01/07/2024 CBC WITH WBC DIFFERENTIAL Lab Routine Leg swelling Permanent atrial fibrillation (HCC) Chronic diastolic heart failure (HCC) Chronic kidney disease, stage 3b (HCC) Expected: 01/07/2023 (Approximate), Expires: 01/08/2024 Scheduled Referrals Name Type Priority Associated Diagnoses Orde r Schedule WOUND CARE REFERRAL OP Referral Within 10 days (routine) Leg swelling Open wound of both lower extremities, initial encounter Ordered: 01/07/2023 Health Maintenance Due Date Last Done Comments [...] Additional history exists CKD PHOS USE SMARTSET 35717 12/22/202212/08, 11/24/2020, 06/20/2018, Additional history exists HbA1c 03/19/2023 03/19/2022, 07/09, 11/24/2020, Additional history exists CKD HGB USE SMARTSET 61224 09/28/202309/27, 09/27/2022, 03/19/2022, Additional history exists TSH 09/28/2023 09/27/2022, 11/08, 11/24/2020, Additional history exists Pneumococcal Vaccine: 65+ Years Completed 11/14/2015, 06/29/2010 Diabetic Foot Exam Discontinued 08/05/2021, 1 03/05/2019, 07/31/2018 VITAMIN D LEVEL ONCE IN A LIFETIME-USE SMARTSET# [id number] Completed 03/19/2022, 07/19/2014, 10/15/2013, Additional history exists GARDASIL-HPV IMMUNIZATION SERIES Aged Out No longer eligible based on patient's age to complete this topic MENINGOCOCCAL (MENACTRA/MENVEO) Aged Out No longer eligible based on patient's age to complete this topic documented as of this encounter Medical Devices Not on filedocumented as of this encounter Visit Diagnoses Diagnosis Leg swelling- Primary Swelling of limb Open wound of both lower extremities, initial encounter Permanent atrial fibrillation (HCC) Atrial fibrillation Chronic diastolic heart failure (HCC) Chronic diastolic heart failure Chronic kidney disease, stage 3b (HCC) 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 Code Status History Code Status Date Activated Date Inactivated Comments None 03/04/2004 12:53 PM 03/04/2004 1:53 PM Care Teams Shot Fireman Relationship Specialty Start Date End Date Ketan Jacob MD [address] [place] [address] PCP - General Internal Medicine 08/05/21 documented as of this encounter
--- OUTSIDE RECORDS SUMMARY | 2023-07-01 00:13 | External Medical Summary ---
Author Name Unknown Address Unknown Organization K01:[facility] - [address] [place] [address] Laboratory Report Ordering Provider Test Date Status ADAM THOMPSON 03/11/2023 14:40:37 Final Observation Date Value Abnormality Reference (Units ) Status T4, Free 03/11/2023 14:40:37 1.2 0.9-1.7 (n g/dL) Final Performing Location [facility] - [address] [place] [address]
--- OUTSIDE RECORDS SUMMARY | 2023-07-01 00:13 | External Medical Summary ---
Author Name Unknown Address Unknown Organization K0G:[facility] - [address] [place] [address] Laboratory Report Ordering Provider Test Date Status FRED CARUSO 03/11/2023 14:40:37 Final Observation Date Value Abnormality Reference (Units ) Status SYNC LEUKOCYTES IN BLOOD BY AUTOMATED COUNT 03/11/2023 14:40:37 10.18 4.00-10.80 (K/uL) Final Segs 03/11/2023 14:40:37 76.0 Above high normal 40.0-75.0 (%) Final Lymphs % 03/11/2023 14:40:37 9.7 Below low normal 18.0-42.0 (%) Final Monos 03/11/2023 14:40:37 9.6 1.0-11.0 (%) Final Eosinophils 03/11/2023 14:40:37 4.5 0.0-6.0 (%) Final Basos 03/11/2023 14:40:37 0.2 0.0-2.0 (%) Final Absolute Segs 03/11/2023 14:40:37 7.73 Above high normal 1.80-7.70 (K/uL) Final Lymphs, absolute 03/11/2023 14:40:37 0.99 Below low normal 1.00-4.80 (K/ul) Final Monos, Abs 03/11/2023 14:40:37 0.98 0.00-1.10 (K/uL) Final Eos, Abs 03/11/2023 14:40:37 0.46 0.00-0.70 (K/uL) Final Basos, Abs 03/11/2023 14:40:37 0.02 0.00-0.20 (K/uL) Final Performing Location [facility] [address] [place] [address]
--- OUTSIDE RECORDS SUMMARY | 2023-07-01 00:13 | External Medical Summary | Summary of Care ---
Author Name Unknown Organization [facility] Address [address] [place] [address] Phone [phone] Care Team Providers Care Manager Council Name Role Phone Ketan Jacob MD Primary Care Provider Encounter Details Date Type Department Care Team (Late st Contact Info) Description 02/22/2023 Orders Only PATIENT PORTAL DO NOT DELETE THIS DEPT USED BY [place] [id number] Allergies Active Allergy Reactions Criticality Noted Date Comments Aspirin Nausea/vomiting 08/19/2011 documented as of this encounter (statuses as of 02/22/2023) Medications Medication Sig Dispensed Refills Start Date [...] daily. 1 Inhaler 1 06/20/2018 Active Nystatin 291167 UNIT/GM External Powder (Nystop)Indications :Intertrigo Apply topically to affected area 3 times a day. Apply to groin 60 g 1 11/20/2020 Active Nystatin 290116 UNIT/GM External CreamIndications:In tertrigo Apply topically to [...] 2 Tablets every afternoon. 0 02/18/2023 Active documented as of this encounter (statuses as of 02/22/2023) Active Problems Problem Noted Date Diagnosed Date [...] as of this encounter (statuses as of 02/22/2023) Resolved Problems Problem Noted Date Diagnosed Date [...] as of this encounter (statuses as of 02/22/2023) Immunizations Name Administration Dates Next Due Pneumococcal [...] Description 04/08/2023 4:00 PM EST Office Visit [place] [address] [place] [place] [address] Ketan Jacob MD [address] [id number] Health Maintenance Due Date Last Done Comments [...] Additional history exists CKD PHOS USE SMARTSET 67617 12/22/202212/08, 11/24/2020, 06/20/2018, Additional history exists HbA1c 03/19/2023 03/19/2022, 07/09, 11/24/2020, Additional history exists CKD HGB USE SMARTSET 69629 09/28/202309/27, 09/27/2022, 03/19/2022, Additional history exists TSH 09/28/2023 09/27/2022, 11/08, 11/24/2020, Additional history exists Pneumococcal Vaccine: 65+ Years Completed 11/14/2015, 06/29/2010 Diabetic Foot Exam Discontinued 08/05/2021, 1 03/05/2019, 07/31/2018 VITAMIN D LEVEL ONCE IN A LIFETIME-USE SMARTSET# [id number] Completed 03/19/2022, 07/19/2014, 10/15/2013, Additional history exists GARDASIL-HPV IMMUNIZATION SERIES Aged Out No longer eligible based on patient's age to complete this topic MENINGOCOCCAL (MENACTRA/MENVEO) Aged Out No longer eligible based on patient's age to complete this topic documented as of this encounter Medical Devices Not on filedocumented as of this encounter Advance Directives Documents on File Type Date Recorded 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 Code Status History Code Status Date Activated Date Inactivated Comments None 03/04/2004 12:53 PM 03/04/2004 1:53 PM Care Teams Manager Council Relationship Specialty Start Date End Date Ketan Jacob MD [address] [place] [address] PCP - General Internal Medicine 08/05/21 documented as of this encounter
--- OUTSIDE RECORDS SUMMARY | 2023-07-01 00:13 | External Medical Summary | Summary of Care ---
Author Name Unknown Organization [facility] Address [address] [place] [address] Phone [phone] Care Team Providers Care Labeling Strategist Name Role Phone Ketan Jacob MD Primary Care Provider [phone] Reason for Visit * Reason Comments eRx-Medication Refill Encounter Details Date Type Department Care Team (Late st Contact Info) Description 02/17/2023 Refill [facility] [address] [place] [address] Ketan Jacob MD [address] [place] [address] Allergies Active Allergy Reactions Criticality Noted Date Comments Aspirin Nausea/vomiting 08/19/2011 documented as of this encounter (statuses as of 02/18/2023) Medications Medication Sig Dispensed Refills Start Date [...] daily. 1 Inhaler 1 06/20/2018 Active Nystatin 596619 UNIT/GM External Powder (Nystop)Indications :Intertrigo Apply topically to affected area 3 times a day. Apply to groin 60 g 1 11/20/2020 Active Nystatin 125148 UNIT/GM External CreamIndications:In tertrigo Apply topically to [...] as of this encounter (statuses as of 02/18/2023) Active Problems Problem Noted Date Diagnosed Date [...] as of this encounter (statuses as of 02/18/2023) Resolved Problems Problem Noted Date Diagnosed Date [...] as of this encounter (statuses as of 02/18/2023) Immunizations Name Administration Dates Next Due Pneumococcal [...] Miscellaneous Notes * Telephone Encounter - Karmen Gambino, [facility] - 02/18/2023 3:04 PM ESTRefused Prescriptions: Disp Refills Torsemide 20 MG Oral Tablet (Demadex) 360 Ta*3 Sig: Take 2 Tablets by mouth daily AND 2 Tablets every afternoon.Refused By: KARMEN GAMBINOeason for Refusal: Duplicate Request documented in this encounter Plan of Treatment Upcoming Encounters Date Type Department Care Team (Late st Contact Info) Description 04/08/2023 4:00 PM EST Office Visit [facility] [address] [place] [address] Ketan Jacob MD [address] [place] [address] Health Maintenance Due Date Last Done [...] Additional history exists CKD PHOS USE SMARTSET 22688 12/22/202212/08, 11/24/2020, 06/20/2018, Additional history exists HbA1c 03/19/2023 03/19/2022, 07/09, 11/24/2020, Additional history exists CKD HGB USE SMARTSET 07081 09/28/202309/27, 09/27/2022, 03/19/2022, Additional history exists TSH 09/28/2023 09/27/2022, 11/08, 11/24/2020, Additional history exists Pneumococcal Vaccine: 65+ Years Completed 11/14/2015, 06/29/2010 Diabetic Foot Exam Discontinued 08/05/2021, 1 03/05/2019, 07/31/2018 VITAMIN D LEVEL ONCE IN A LIFETIME-USE SMARTSET# [id number] Completed 03/19/2022, 07/19/2014, 10/15/2013, Additional history exists GARDASIL-HPV IMMUNIZATION SERIES Aged Out No longer eligible based on patient's age to complete this topic MENINGOCOCCAL (MENACTRA/MENVEO) Aged Out No longer eligible based on patient's age to complete this topic documented as of this encounter Medical Devices Not on filedocumented as of this encounter Advance Directives Documents on File Type Date Recorded 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 Code Status History Code Status Date Activated Date Inactivated Comments None 03/04/2004 12:53 PM 03/04/2004 1:53 PM Care Teams Labeling Strategist Relationship Specialty Start Date End Date Ketan Jacob MD [address] [place] [address] PCP - General Internal Medicine 08/05/21 documented as of this encounter
--- OUTSIDE RECORDS SUMMARY | 2023-07-01 00:13 | External Medical Summary ---
Author Name Unknown Address Unknown Organization K01[place] [place] [address] [facility] [address] Laboratory Report Ordering Provider Test Date Status ADAM THOMPSON 03/11/2023 14:40:37 Final Observation Date Value Abnormality Reference (Units ) Status TSH 03/11/2023 14:40:37 4.46 Above high normal 0. 27-4.20 (uIU/mL) Final Performing Location [facility] [place] [address] [facility] [address]
[2023-07-01 06:35] LABS: Hemoglobin 8.9 g/dl (12.0-16.0); Mean Corpuscular Hemoglobin 23.8 pg (25.0-34.0); Mean Corpuscular Hgb Conc 30.7 g/dL (32.0-36.0); Mean Corpuscular Volume 77.5 fL (80.0-100.0); Mean Platelet Volume 10.2 fL (9.4-12.4); Platelet Count 265 K/uL (130-400); RDW Coefficient of Variation 18.2 % (11.5-14.5); RDW Standard Deviation 50.8 fL (36.4-46.3); Red Blood Count 3.74 M/uL (4.20-5.40); White Blood Count 20.56 K/ul (4.8-10.8)
[2023-07-01 06:45] LABS: BUN Creatinine Ratio 17.2 (10-20); Calcium 7.1 mg/dl (8.6-10.3); Est GFR (African American) 40.6 ml/min; Magnesium 1.6 mg/dl (1.7-2.4); Phosphorus 3.6 mg/dl (2.5-4.9); Potassium 3.8 mmol/L (3.5-5.1)
[2023-07-01 07:15] LABS: ANTI-Xa, UFH(UnfractionatedHep 0.19 IU/ml (0.3-0.7)
[2023-07-01] MEDS ORDERED: HEPARIN SOD (PORCINE) 1000 UNIT/ML IV ONE (07:26)
--- NOTE | 2023-07-01 08:15 | Hospitalist Progress Note ---
Date of Service July 01, 2023 Assessment & Plan (1) Aspiration pneumonia: (2) Atrial fibrillation with rapid ventricular response: (3) Current use of assisted anticoagulation: (4) (HFpEF) heart failure with preserved ejection fraction: (5) Traumatic open wound of right lower leg with delayed healing: (6) PAD (peripheral artery disease): (7) Chronic venous insufficiency: (8) Venous stasis ulcers: (9) Hypothyroidism: (10) CKD (chronic kidney disease) stage 3, GFR 30-59 ml/min: (11) Dyslipidemia: (12) HTN (hypertension): (13) History of CVA (cerebrovascular accident): Plan This is a 87-year-old female with PMH of HFpEF, permanent A Fib, history of CVA, hypothyroidism, HLD, prediabetes, CKD III, history of occlusion of common femoral artery, bilateral lower extremity edema, depression, mild dementia who presents from home after a choking incident. Unable to obtain history from patient at bedside due to dementia and hearing impairment. History obtained from granddaughter in- law and grandson over the phone as well as chart review. Aspiration pna Acute hypoxic resp. failure Choking incident at home with boneless wing, feels she passed food bolus but still with wheezing in ED Saturating at 96% on 2 L NC (not on home O2 at baseline) Afebrile, WBC 15k -> WBC 36K -> 20.5K CXR with cardiomegaly. Interstitial thickening suggestive of interstitial pulmonary edema with small bilateral pleural effusions and associated bibasilar opacities Obtained CT chest - 1. Multifocal centrilobular airspace opacities most pronounced at the lung bases right greater than left. 2. Interstitial edema. 3. Small pleural effusions. Started on Zosyn in ED - continue for now Pulmonary medicine consulted Speech consulted - s/p video swallow study - diet adjusted Aspiration precautions Atrial fibrillation with RVR Granddaughter mentions elevated HRs around 110 at home this past week Initial EKG with HR 134, given 10mg bolus of diltiazem in ED Started on diltiazem drip -> now off dilt gtt Continue home metoprolol 100 bid monitor on telemetry, continue PRN IV Lopressor for HR >120 IV heparin will stop , Continue home Eliquis 2.5 bid for anticoagulation Cardiology consulted and following HFpEF Recently saw cardiology and had Torsemide increased to 60mg BID BLE at baseline Most recent 2D echo from Nov 2022 with EF 50-54%, borderline diffuse left ventricular hypokinesis, mild AV regurg, mild MV regurg, mild tricuspid regurg Continue torsemide 50 mg daily - at home also on spironolactone, monitor volume status closely CT chest as above Strict I&Os, daily weights Chronic bilateral lower extremity edema Chronic Venous insufficiency Non healing wounds Following with [facility] wound care, wraps in place and edema is at baseline Continue diuretics, as above Wound care nurse Left hip swelling Noted by family, more tender and swollen on posterior aspect L hip XR - 1. No acute fracture or dislocation identified. 2. Chronic degenerative and postoperative changes as above. Dementia At mentation baseline per granddaughter of A&O x 1, also hard of hearing Monitor for delirium Prediabetes Diabetic diet PAD History of CVA History of occlusion of common femoral artery Continue statin, Plavix Hypothyroidism Continue Synthroid GERD On Protonix CKD III Cr at baseline 1.09. Follow daily BMP DVT Ppx: IV heparin -> Eliquis Code status: DNR/DNI per discussion over phone with grandsonARJUN ([phone]) PCP: Dr. Jacob Dispo: PCU Admission and Anticipated Discharge Date Admission Date: June 29, 2023 Subjective Pt seen in follow up of aspiration event, hypoxia, afib w/ RVR Currently sitting up in bed in NAD, much more awake and interactive today Also off suppl. O2 at this time She is hard of hearing and does not answer all the questions but overall not complaining of any discomfort. No chest pain, no shortness of breath, no abd. pain IV dilt stopped, also plan to stop IV heparin and switch back to home eliquis Seen by speech - had video swallow study yesterday Pulm and cardiology consulted Review of Systems Review of Systems: All systems reviewed & are unremarkable except as noted in Subjective Physical Exam Physical Exam: General Appearance: WD/WN, elderly frail F in NAD, + chronically ill appearing, on RA Head: normocephalic, atraumatic Eyes: R eye conjunctivitis ENT: external ear and nose normal Neck: normal visual inspection Respiratory: + b/l rhonchi Cardiovascular: irregular rate & rhythm, no murmur, + BLE edema. Vessels: no JVD Chest: normal inspection of chest Abdomen/GI: normal bowel sounds, soft, nontender Extremities/Musculoskeletal: BLE edema with chronic venous stasis changes R>L, legs wrapped,moving extremities Neurologic: awake and alert, able to answers simple questions, PERRL, EOMI, moves all extremities Skin: warm/dry, venous stasis changes on LE as above Results & Data Results & Data Vital Signs (Past 12 Hours) Vital Signs Temp Pulse Resp BP Pulse Ox O2 Del Method O2 Flow Rate 07/01/23 07:30 Nasal Cannula 3 07/01/23 03:03 36.8 C 98 H 18 118/70 100 Nasal Cannula 06/30/23 22:40 36.8 C 96 H 18 121/61 100 Nasal Cannula 06/30/23 20:41 103 H 16 95 Nasal Cannula 2 Laboratory Results 07/01/23 06/30/23 Range/Units 05:50 16:59 WBC 20.56 H (4.8-10.8) K/ul RBC 3.74 L (4.20-5.40) M/uL Hgb 8.9 L (12.0-16.0) g/dl Hct 29.0 L (37.0-47.0) % MCV 77.5 L (80.0-100.0) fL MCH 23.8 L (25.0-34.0) pg MCHC 30.7 L (32.0-36.0) g/dL RDW Std Deviation 50.8 H (36.4-46.3) fL RDW Coeff of Cain 18.2 H (11.5-14.5) % Plt Count 265 (130-400) K/uL MPV 10.2 (9.4-12.4) fL Heparin Anti-Xa, Unfract 0.19 L 0.33 (0.3-0.7) IU/ml Sodium 138 (136-145) mmol/L Potassium 3.8 (3.5-5.1) mmol/L Chloride 100 (98-107) mmol/L Carbon Dioxide 31 (21-32) mmol/L Anion Gap 7 (3-11) BUN 23 (6-23) mg/dl Creatinine 1.34 H (0.6-1.2) mg/dl Est Cr Clr Drug Dosing 24.0 ml/min Est GFR ( Amer) 40.6 ml/min Est GFR (Non-Af Amer) 35.0 ml/min BUN/Creatinine Ratio 17.2 (10-20) Glucose 157 H (70-99(Fasting)) mg/dl Calcium 7.1 L (8.6-10.3) mg/dl Phosphorus 3.6 (2.5-4.9) mg/dl Magnesium 1.6 L (1.7-2.4) mg/dl Medications Administered Current Inpatient Medications Acetaminophen (Acetaminophen 325 Mg Tab) 650 mg PO Q4H PRN PRN Reason: Pain or Fever Stop: 07/29/23 22:11 Albuterol (Albuterol 0.083% Nebu Soln 3 Ml Vial) 2.5 mg INH DAILY PRN; Protocol PRN Reason: Wheezing Stop: 07/29/23 22:11 Last Admin: 06/30/23 20:41 Dose: 2.5 mg Apixaban (Apixaban 2.5 Mg Tab) 2.5 mg PO BID [facility] Stop: 07/29/23 22:11 Last Admin: 06/29/23 23:39 Dose: Not Given Atorvastatin Calcium (Atorvastatin 10 Mg Tab) 10 mg PO HS [facility] Stop: 07/29/23 22:11 Last Admin: 06/29/23 23:39 Dose: Not Given Clopidogrel Bisulfate (Clopidogrel Bisulfate 75 Mg Tab) 75 mg PO QAM [facility] Stop: 07/30/23 08:59 Cyanocobalamin (Cyanocobalamin (B-12) 500 Mcg Tablet) 1,000 mcg PO DAILY [facility] Stop: 07/30/23 08:59 Docusate Sodium (Docusate Sodium 100 Mg Cap) 100 mg PO BID PRN PRN Reason: Constipation Stop: 07/29/23 22:11 Fluticasone Propionate (Fluticasone Propionate Na Spr 16 Gm Btl) 2 sprays SHOSHANA DAILY PRN PRN Reason: Congestion Stop: 07/29/23 22:11 Diltiazem HCl 125 mg/ Dextrose 125 mls @ 0 mls/hr IV .Q0M [facility]; Protocol Stop: 07/29/23 21:59 Last Titration: 06/30/23 16:52 Dose: Infused Heparin Sodium/Dextrose (Heparin Sodium/Dextrose) 25,000 units in 500 mls @ 15 mls/hr IV .Q24H [facility]; Protocol Stop: 07/29/23 23:44 Last Titration: 07/01/23 07:25 Dose: 750 units/hr, 15 mls/hr Piperacillin Sod/Tazobactam (Sod 4.5 gm/ Dextrose) 100 mls @ 25 mls/hr IV Q8H [facility]; Protocol Stop: 07/07/23 01:59 Last Admin: 07/01/23 03:11 Dose: 25 mls/hr Magnesium Sulfate/Dextrose (Magnesium Sulfate / D5w) 1 gm in 100 mls @ 50 mls/hr IV ONE ONE Stop: 07/01/23 10:13 Levothyroxine Sodium (Levothyroxine Sodium 25 Mcg Tablet) 25 mcg PO DAILYBB [facility] Stop: 07/30/23 06:29 Last Admin: 06/30/23 05:34 Dose: Not Given Magnesium Oxide (Magnesium Oxide 400 Mg Tab) 400 mg PO DAILY [facility] Stop: 07/30/23 08:59 Metoprolol Succinate (Metoprolol Succ 50mg Ext Rel Tab) 100 mg PO BID [facility] Stop: 07/30/23 08:59 Multivitamins (Multivitamin Tab) 1 tab PO DAILY [facility] Stop: 07/30/23 08:59 Nystatin (Nystatin Powder 15gm Btl) 1 appln EXT TID PRN PRN Reason: Skin Irritation Stop: 07/29/23 22:11 Ondansetron HCl (Ondansetron Inj 2 Mg/Ml 2 Ml Vial) 4 mg IV Q6H PRN PRN Reason: Nausea Stop: 07/29/23 22:11 Pantoprazole Sodium (Pantoprazole 40 Mg Tab) 40 mg PO QAM [facility] Stop: 07/30/23 08:59 Polyethylene Glycol (Polyethylene (Miralax) 17 Gm Pack) 17 gm PO DAILY PRN PRN Reason: Constipation Stop: 07/29/23 22:11 Spironolactone (Spironolactone 12.5 Mg Tab) 12.5 mg PO QAM [facility] Stop: 07/30/23 08:59 Last Admin: 06/30/23 08:37 Dose: 12.5 mg Torsemide (Torsemide 20 Mg Tab) 40 mg PO BID17 [facility] Stop: 07/30/23 08:59 Last Admin: 06/30/23 20:28 Dose: 40 mg (1) Aspiration pneumonia Aspiration pneumonia type: unspecified Laterality: right Lung location: unspecified part of lung Qualified Code(s): J69.0 - Pneumonitis due to inhalation of food and vomit (8) Venous stasis ulcers Venous stasis ulcer site: calf Varicose vein presence: unspecified whether present Laterality: left Non-pressure ulcer stage: limited to breakdown of skin Qualified Code(s): I83.022 - Varicose veins of left lower extremity with ulcer of calf; L97.221 - Non-pressure chronic ulcer of left calf limited to breakdown of skin
[2023-07-01] MEDS: MAGNESIUM SULFATE / D5W 1 GM/100 ML BAG IV ONE (08:51)
--- NOTE | 2023-07-01 08:51 | Cardiology Progress Note ---
Date of Service July 01, 2023 Assessment & Plan (1) Hypoxia: (2) Aspiration pneumonia: (3) (HFpEF) heart failure with preserved ejection fraction: (4) Atrial fibrillation with rapid ventricular response: (5) Venous stasis ulcers: (6) HTN (hypertension): (7) Dyslipidemia: (8) CKD (chronic kidney disease) stage 3, GFR 30-59 ml/min: (9) UTI (urinary tract infection): Plan Assessment: 87 year old hearing impaired female presents after choking on a boneless chicken wing resulting in a RUL/Aspiration pneumonia. A-fib with RVR upon presentation with known permanent A-fib on chronic AC therapy. Incidental finding of an acute UTI during evaluation. Plan: 1. Hypoxia 2. Aspiriation Pneumonia 3. HFpEF -Hypoxia, while multifactorial, acutely in response to her aspiration event and subsequent pneumonia. -Modest elevation in WBC, continued management of acute infectious process per primary team. Pulmonary medicine also on consult. -Demonstrates evidence of volume overload; however, will be cautious with diuresis at this time in the setting of an acute infection. -Echocardiogram pending to assess overall structure and function. -Continue Metoprolol succinate 100mg PO BID, Spironolactone 12.5mg QAM, Torsemide 40mg PO BID. -Closely monitor I&O, daily weights, and labs closely. Goal Serum K> 4.0 and Serum mag > 2.0. 4. A-fib with RVR -Known chronic/permanent A-fib. increased rate in response to hypoxia and acute infectious process. -Eliquis on hold due to poor oral intake. May continue Heparin gtt at this time. When tolerating PO well, please transition back to Eliquis 2.5mg PO BID (reduced dosing s/t weight and age) -may continue Diltiazem gtt today, and also continue home regimen of Toprol xl. 5. venous stasis ulcers: -Per management of primary team. Currently in compression dressings 6. HTN: -Controlled. -Continue Toprol xl, Cardizem GTT, Torsemide, and spironolactone. 7. Dyslipidemia -Continue Atorvastatin as per current regimen. 8. CKD 9. UTI: -As per management of primary team. Case has been discussed with Dr. Lopez. Further recommendations regarding plan of care as per his assessment. I spent a total of 40 minutes on the date of service in preparation, delivery, documentation of the care provided to the patient excluding any time spent in the performance of separately billed services. TRACY Bradford [facility] Admission and Anticipated Discharge Date Admission Date: June 29, 2023 Supervising Physician Co-Signing Physician Notes Attending Staff: Pt seen and examined with AP Staff Concur with observations and plans 87 yo woman presenting with choking episode Consulted for afib (chronic) On Toprol XL 100 mg po BID at home DOAC at Home DOAC held here; started on Heparin CXR - concern for Aspiration EKG - Afib with RVR - Diltiazem Rx with diuretics + ABX Home Torsemide 60 mg po BID Hypomagnesemia ECHOcardiogram - ordered Med HX: * Combined CHF * Ischemic Cardiomyopathy * Afib (chronic) * Chronic Lymphedema * CVA on Plavix * Dementia * Hearing impairment Plans: * Afib * HR <100 * Consider restarting DOAC - Eliquis 2.5 mg po BID * STOP Heparin * ECHO - pending * Diltiazem infusion (OFF) * Resumed Toprol XL 100 mg po BID * K+ 3.8; K+ goal is 4.5 -5 * KDUR 60 meq po x1 on 07/01/2023 * Mag 1.6 * MagSO4 3 gm IV x 1 * Check TSH * Change Torsemide to 50 mg po per day * Daily weights * Please arrange for patient to see [facility] * 51 min spent addressing challenges, educating and advancing daily plan of care Shaq Pedro Subjective 07/01/23: Patient seen and examined in follow up today. Feeling better Labs, vitals, diagnostics, telemetry and documentation reviewed. Telemetry reviewed showing - Afib; HR 80-107 WBD trending down H/H 8.9/29.0 Ca 7.1 Mag 1.6 WBC count - decreasing from 36 to 20K Review of Systems Review of Systems: All systems reviewed & are unremarkable except as noted in HPI & below Physical Exam Physical Exam: No elevation in JVP S1S2 2/6 Systolic Murmur + Bilateral wheezing 2+ LE edema - chronic lymphedema Warm and well perfused Constitutional: + ill appearing and + frail appearing; n o acute distress Neck: normal visual inspection and trachea midline Respiratory: normal respiratory effort and + cough (weak, non-productive cough ); no respiratory distress Auscultation: + diminished lung sounds (throughout ) and + wheezes (scattered exp. wheezes); no crackles, no rales and no rhonchi Cardiovascular: Rate/Rhythm: + irregularly irregular Heart Sounds: normal S1, normal S2 and + murmur Vessels: dorsalis pedis pulses present; no JVD Extremities: + edema (+1 BLE, difficult to assess. bilateral compression wraps ) Skin: normal turgor and + ulcer (poorly healing venous ulcers b/l lower extremities ); no rashes Psychiatric: Orientation: alert and oriented x 3 (very hard of hearing ) Results & Data Vital Signs (Past 12 Hours) Vital Signs Temp Pulse Resp BP Pulse Ox O2 Del Method O2 Flow Rate 07/01/23 07:30 Nasal Cannula 3 07/01/23 03:03 36.8 C 98 H 18 118/70 100 Nasal Cannula 06/30/23 22:40 36.8 C 96 H 18 121/61 100 Nasal Cannula Laboratory Results CBC 07/01/23 Range/Units 05:50 WBC 20.56 H (4.8-10.8) K/ul RBC 3.74 L (4.20-5.40) M/uL Hgb 8.9 L (12.0-16.0) g/dl Hct 29.0 L (37.0-47.0) % Plt Count 265 (130-400) K/uL Comprehensive Metabolic Panel 07/01/23 Range/Units 05:50 Sodium 138 (136-145) mmol/L Potassium 3.8 (3.5-5.1) mmol/L Chloride 100 (98-107) mmol/L Carbon Dioxide 31 (21-32) mmol/L BUN 23 (6-23) mg/dl Creatinine 1.34 H (0.6-1.2) mg/dl Glucose 157 H (70-99(Fasting)) mg/dl Calcium 7.1 L (8.6-10.3) mg/dl Intake and Output 06/30/23 07/01/23 07/01/23 22:59 06:59 14:59 Intake Total 200 / 550 250 / 550 783.8 / 783.8 Output Total 800 / 800 Balance 200 / 550 250 / 550 -16.2 / -16.2 Intake: IV 100 / 300 100 / 300 683.8 / 683.8 Heparin Sodium/Dextrose 25,000 483.8 / 483.8 units In 500 ml @ 750 UNITS/HR 15 mls/hr IV .Q24H [facility] Rx#: [id number] Magnesium Sulfate / D5w 1 gm In 100 / 100 100 ml @ 50 mls/hr IV ONE ONE Rx#:[id number] Piperacillin/Tazobactam 4.5 gm 100 / 300 100 / 300 100 / 100 In Dextrose 5% Mini-B 100 ml @ 25 mls/hr IV Q8H [facility] Rx#: [id number] dilTIAZem HCL 125 mg In 0 / 0 Dextrose 5% 100 ml @ 0 MG/HR IV .Q0M [facility] Rx#:[id number] Oral 100 / 250 150 / 250 100 / 100 Output: Urine Amount (Catheter) 800 / 800 External 800 / 800 Other: # Unmeasured Voids 1 Weight 53.7 kg 53.5 kg Medications Administered Current Inpatient Medications Acetaminophen (Acetaminophen 325 Mg Tab) 650 mg PO Q4H PRN PRN Reason: Pain or Fever Stop: 07/29/23 22:11 Albuterol (Albuterol 0.083% Nebu Soln 3 Ml Vial) 2.5 mg INH DAILY PRN; Protocol PRN Reason: Wheezing Stop: 07/29/23 22:11 Last Admin: 06/30/23 20:41 Dose: 2.5 mg Apixaban (Apixaban 2.5 Mg Tab) 2.5 mg PO BID [facility] Stop: 07/29/23 22:11 Last Admin: 06/29/23 23:39 Dose: Not Given Atorvastatin Calcium (Atorvastatin 10 Mg Tab) 10 mg PO HS [facility] Stop: 07/29/23 22:11 Last Admin: 06/29/23 23:39 Dose: Not Given Clopidogrel Bisulfate (Clopidogrel Bisulfate 75 Mg Tab) 75 mg PO QAM [facility] Stop: 07/30/23 08:59 Cyanocobalamin (Cyanocobalamin (B-12) 500 Mcg Tablet) 1,000 mcg PO DAILY [facility] Stop: 07/30/23 08:59 Docusate Sodium (Docusate Sodium 100 Mg Cap) 100 mg PO BID PRN PRN Reason: Constipation Stop: 07/29/23 22:11 Fluticasone Propionate (Fluticasone Propionate Na Spr 16 Gm Btl) 2 sprays SHOSHANA DAILY PRN PRN Reason: Congestion Stop: 07/29/23 22:11 Diltiazem HCl 125 mg/ Dextrose 125 mls @ 0 mls/hr IV .Q0M [facility]; Protocol Stop: 07/29/23 21:59 Last Titration: 06/30/23 16:52 Dose: Infused Heparin Sodium/Dextrose (Heparin Sodium/Dextrose) 25,000 units in 500 mls @ 15 mls/hr IV .Q24H [facility]; Protocol Stop: 07/29/23 23:44 Last Admin: 07/01/23 13:09 Dose: 750 units/hr, 15 mls/hr Piperacillin Sod/Tazobactam (Sod 4.5 gm/ Dextrose) 100 mls @ 25 mls/hr IV Q8H [facility]; Protocol Stop: 07/07/23 01:59 Last Admin: 07/01/23 09:48 Dose: 25 mls/hr Levothyroxine Sodium (Levothyroxine Sodium 25 Mcg Tablet) 25 mcg PO DAILYBB [facility] Stop: 07/30/23 06:29 Last Admin: 06/30/23 05:34 Dose: Not Given Magnesium Oxide (Magnesium Oxide 400 Mg Tab) 400 mg PO DAILY [facility] Stop: 07/30/23 08:59 Metoprolol Succinate (Metoprolol Succ 50mg Ext Rel Tab) 100 mg PO BID [facility] Stop: 07/30/23 08:59 Multivitamins (Multivitamin Tab) 1 tab PO DAILY [facility] Stop: 07/30/23 08:59 Nystatin (Nystatin Powder 15gm Btl) 1 appln EXT TID PRN PRN Reason: Skin Irritation Stop: 07/29/23 22:11 Ondansetron HCl (Ondansetron Inj 2 Mg/Ml 2 Ml Vial) 4 mg IV Q6H PRN PRN Reason: Nausea Stop: 07/29/23 22:11 Pantoprazole Sodium (Pantoprazole 40 Mg Tab) 40 mg PO QAM [facility] Stop: 07/30/23 08:59 Polyethylene Glycol (Polyethylene (Miralax) 17 Gm Pack) 17 gm PO DAILY PRN PRN Reason: Constipation Stop: 07/29/23 22:11 Spironolactone (Spironolactone 12.5 Mg Tab) 12.5 mg PO QAM [facility] Stop: 07/30/23 08:59 Last Admin: 07/01/23 08:46 Dose: 12.5 mg Torsemide (Torsemide 20 Mg Tab) 40 mg PO BID17 [facility] Stop: 07/30/23 08:59 Last Admin: 07/01/23 08:46 Dose: 40 mg (2) Aspiration pneumonia Aspiration pneumonia type: unspecified Laterality: right Lung location: unspecified part of lung Qualified Code(s): J69.0 - Pneumonitis due to inhalation of food and vomit (5) Venous stasis ulcers Laterality: left Non-pressure ulcer stage: limited to breakdown of skin Varicose vein presence: unspecified whether present Venous stasis ulcer site: calf Qualified Code(s): I83.022 - Varicose veins of left lower extremity with ulcer of calf; L97.221 - Non-pressure chronic ulcer of left calf limited to breakdown of skin
[2023-07-01] MEDS: HEPARIN IV BOLUS 2,000 UNITS in SYRINGE 0 ML IV ONE (09:45)
--- NOTE | 2023-07-01 13:06 | Electrocardiogram Report ---
Test Reason : Blood Pressure : / mmHG Vent. Rate : 087 BPM Atrial Rate : 090 BPM P-R Int : 000 ms QRS Dur : 092 ms QT Int : 410 ms P-R-T Axes : 000 017 -03 degrees QTc Int : 493 ms Atrial fibrillation Low voltage QRS Incomplete right bundle branch block Abnormal ECG When compared with ECG of 29-JUN-2023 17:11, Vent. rate has decreased BY 47 BPM Nonspecific T wave abnormality now evident in Lateral leads Confirmed by Prabhu Davis ([id number] on 07/01/2023 1:06:11 PM Referred By: REFERRED SELF Confirmed By:Prabhu Davis
[2023-07-01 14:43] LABS: ANTI-Xa, UFH(UnfractionatedHep 0.27 IU/ml (0.3-0.7)
[2023-07-01 15:57] LABS: Thyroid Stimulating Hormone 4.456 uIu/ml (0.300-4.500)
[2023-07-01] MEDS: POTASSIUM CHLORIDE CRTAB 20 MEQ TABCR PO STA (16:30)
[2023-07-01] MEDS: MAGNESIUM SULFATE / D5W 1 GM/100 ML BAG IV SCH (16:30)
[2023-07-01] MEDS: POTASSIUM CHLORIDE PWD 20 MEQ PACK PO ONE (17:24)
[2023-07-01] MEDS: TRIMETHOPRIM/POLYMYXIN B OPR SCH (21:17)
[2023-07-01] MEDS: METOPROLOL SUCC 50MG EXT REL TAB PO SCH (21:39)
[2023-07-02 06:47] LABS: Hematocrit (blood only) 30.2 % (37.0-47.0); Hemoglobin 9.2 g/dl (12.0-16.0); Mean Corpuscular Hemoglobin 23.8 pg (25.0-34.0); Mean Corpuscular Hgb Conc 30.5 g/dL (32.0-36.0); Mean Corpuscular Volume 78.2 fL (80.0-100.0); Mean Platelet Volume 10.5 fL (9.4-12.4); Platelet Count 254 K/uL (130-400); RDW Standard Deviation 50.2 fL (36.4-46.3); Red Blood Count 3.86 M/uL (4.20-5.40); White Blood Count 14.63 K/ul (4.8-10.8)
[2023-07-02 07:20] LABS: BUN Creatinine Ratio 17.1 (10-20); Calcium 7.3 mg/dl (8.6-10.3); Creatinine Clr Calc Pharmacy 27.5 ml/min; Est GFR (African American) 47.8 ml/min; Est GFR (Non-African American) 41.3 ml/min; Magnesium 2.3 mg/dl (1.7-2.4); Phosphorus 3.2 mg/dl (2.5-4.9); Potassium 4.2 mmol/L (3.5-5.1)
[2023-07-02] MEDS: TORSEMIDE 100 MG TAB PO SCH (08:47)
--- NOTE | 2023-07-02 13:36 | Hospitalist Progress Note ---
Date of Service July 02, 2023 Assessment & Plan (1) Aspiration pneumonia: (2) Atrial fibrillation with rapid ventricular response: (3) Current use of terminal superintendent anticoagulation: (4) (HFpEF) heart failure with preserved ejection fraction: (5) Traumatic open wound of right lower leg with delayed healing: (6) PAD (peripheral artery disease): (7) Chronic venous insufficiency: (8) Venous stasis ulcers: (9) Hypothyroidism: (10) CKD (chronic kidney disease) stage 3, GFR 30-59 ml/min: (11) Dyslipidemia: (12) HTN (hypertension): (13) History of CVA (cerebrovascular accident): Plan This is a 87-year-old female with PMH of HFpEF, permanent A Fib, history of CVA, hypothyroidism, HLD, prediabetes, CKD III, history of occlusion of common femoral artery, bilateral lower extremity edema, depression, mild dementia who presents from home after a choking incident. Unable to obtain history from patient at bedside due to dementia and hearing impairment. History obtained from granddaughter in- law and grandson over the phone as well as chart review. Aspiration pna Acute hypoxic resp. failure Choking incident at home with boneless wing, feels she passed food bolus but still with wheezing in ED Saturating at 96% on 2 L NC (not on home O2 at baseline) Afebrile, WBC 15k -> WBC 36K -> 20.5K -> 14 K CXR with cardiomegaly. Interstitial thickening suggestive of interstitial pulmonary edema with small bilateral pleural effusions and associated bibasilar opacities Obtained CT chest - 1. Multifocal centrilobular airspace opacities most pronounced at the lung bases right greater than left. 2. Interstitial edema. 3. Small pleural effusions. Started on Zosyn in ED - continue for now pulmonary toilet Pulmonary medicine consulted Speech consulted - s/p video swallow study - diet adjusted Aspiration precautions Atrial fibrillation with RVR Granddaughter mentions elevated HRs around 110 at home this past week Initial EKG with HR 134, given 10mg bolus of diltiazem in ED Started on diltiazem drip -> now off dilt gtt Continue home metoprolol 100 bid monitor on telemetry, continue PRN IV Lopressor for HR >120 IV heparin stopped , Continue home Eliquis 2.5 bid for anticoagulation Cardiology consulted and following HFpEF Recently saw cardiology and had Torsemide increased to 60mg BID BLE at baseline Most recent 2D echo from Nov 2022 with EF 50-54%, borderline diffuse left ventricular hypokinesis, mild AV regurg, mild MV regurg, mild tricuspid regurg Continue torsemide 50 mg daily - at home also on spironolactone, monitor volume status closely CT chest as above Strict I&Os, daily weights Chronic bilateral lower extremity edema Chronic Venous insufficiency Non healing wounds Following with [facility] wound care, wraps in place and edema is at baseline Continue diuretics, as above Wound care nurse Left hip swelling Noted by family, more tender and swollen on posterior aspect L hip XR - 1. No acute fracture or dislocation identified. 2. Chronic degenerative and postoperative changes as above. Dementia At mentation baseline per granddaughter of A&O x 1, also hard of hearing Monitor for delirium Prediabetes Diabetic diet PAD History of CVA History of occlusion of common femoral artery Continue statin, Plavix Hypothyroidism Continue Synthroid GERD On Protonix CKD III Cr at baseline 1.09. Follow daily BMP DVT Ppx: Eliquis Code status: DNR/DNI per discussion over phone with ARJUN cole ([phone]) PCP: Dr. Jacob Dispo: PCU , plan to DC to [facility] once medically stable Admission and Anticipated Discharge Date Admission Date: June 29, 2023 Subjective Pt seen in follow up of aspiration event, hypoxia, afib w/ RVR Currently sitting up in bed in NAD, much more awake and interactive today Also off suppl. O2 at this time She is hard of hearing and does not answer all the questions but overall not complaining of any discomfort. No chest pain, no shortness of breath, no abd. pain IV dilt stopped, also plan to stop IV heparin and switch back to home eliquis Seen by speech - had video swallow study yesterday Pulm and cardiology consulted Review of Systems Review of Systems: All systems reviewed & are unremarkable except as noted in Subjective Physical Exam Physical Exam: General Appearance: WD/WN, elderly frail F in NAD, + chronically ill appearing, on RA Head: normocephalic, atraumatic Eyes: R eye conjunctivitis ENT: external ear and nose normal Neck: normal visual inspection Respiratory: + b/l rhonchi Cardiovascular: irregular rate & rhythm, no murmur, + BLE edema. Vessels: no JVD Chest: normal inspection of chest Abdomen/GI: normal bowel sounds, soft, nontender Extremities/Musculoskeletal: BLE edema with chronic venous stasis changes R>L, legs wrapped,moving extremities Neurologic: awake and alert, able to answers simple questions, PERRL, EOMI, moves all extremities Skin: warm/dry, venous stasis changes on LE as above Results & Data Results & Data Vital Signs (Past 12 Hours) Vital Signs Temp Pulse Resp BP BP Pulse Ox O2 Del Method 07/02/23 11:40 36.5 C 91 H 24 140/78 91 Nasal Cannula 07/02/23 07:41 36.5 C 96 H 21 153/78 H 100 Nasal Cannula 07/02/23 02:54 36.8 C 101 H 18 134/93 95 Room Air Laboratory Results 07/02/23 07/01/23 07/01/23 Range/Units 06:24 14:03 05:50 WBC 14.63 H (4.8-10.8) K/ul RBC 3.86 L (4.20-5.40) M/uL Hgb 9.2 L (12.0-16.0) g/dl Hct 30.2 L (37.0-47.0) % MCV 78.2 L (80.0-100.0) fL MCH 23.8 L (25.0-34.0) pg MCHC 30.5 L (32.0-36.0) g/dL RDW Std Deviation 50.2 H (36.4-46.3) fL RDW Coeff of Cain 18.0 H (11.5-14.5) % Plt Count 254 (130-400) K/uL MPV 10.5 (9.4-12.4) fL Heparin Anti-Xa, Unfract 0.27 L (0.3-0.7) IU/ml Sodium 140 (136-145) mmol/L Potassium 4.2 (3.5-5.1) mmol/L Chloride 102 (98-107) mmol/L Carbon Dioxide 33 H (21-32) mmol/L Anion Gap 5 (3-11) BUN 20 (6-23) mg/dl Creatinine 1.17 (0.6-1.2) mg/dl Est Cr Clr Drug Dosing 27.5 ml/min Est GFR ( Amer) 47.8 ml/min Est GFR (Non-Af Amer) 41.3 ml/min BUN/Creatinine Ratio 17.1 (10-20) Glucose 130 H (70-99(Fasting)) mg/dl Calcium 7.3 L (8.6-10.3) mg/dl Phosphorus 3.2 (2.5-4.9) mg/dl Magnesium 2.3 (1.7-2.4) mg/dl TSH 4.456 (0.300-4.500) uIu/ml Medications Administered Current Inpatient Medications Acetaminophen (Acetaminophen 325 Mg Tab) 650 mg PO Q4H PRN PRN Reason: Pain or Fever Stop: 07/29/23 22:11 Albuterol (Albuterol 0.083% Nebu Soln 3 Ml Vial) 2.5 mg INH DAILY PRN; Protocol PRN Reason: Wheezing Stop: 07/29/23 22:11 Last Admin: 06/30/23 20:41 Dose: 2.5 mg Apixaban (Apixaban 2.5 Mg Tab) 2.5 mg PO BID [facility] Stop: 07/29/23 22:11 Last Admin: 07/02/23 08:47 Dose: 2.5 mg Atorvastatin Calcium (Atorvastatin 10 Mg Tab) 10 mg PO HS [facility] Stop: 07/29/23 22:11 Last Admin: 06/29/23 23:39 Dose: Not Given Clopidogrel Bisulfate (Clopidogrel Bisulfate 75 Mg Tab) 75 mg PO QAM [facility] Stop: 07/30/23 08:59 Cyanocobalamin (Cyanocobalamin (B-12) 500 Mcg Tablet) 1,000 mcg PO DAILY [facility] Stop: 07/30/23 08:59 Docusate Sodium (Docusate Sodium 100 Mg Cap) 100 mg PO BID PRN PRN Reason: Constipation Stop: 07/29/23 22:11 Fluticasone Propionate (Fluticasone Propionate Na Spr 16 Gm Btl) 2 sprays SHOSHANA DAILY PRN PRN Reason: Congestion Stop: 07/29/23 22:11 Piperacillin Sod/Tazobactam (Sod 4.5 gm/ Dextrose) 100 mls @ 25 mls/hr IV Q8H [facility]; Protocol Stop: 07/07/23 01:59 Last Admin: 07/02/23 10:33 Dose: 25 mls/hr Levothyroxine Sodium (Levothyroxine Sodium 25 Mcg Tablet) 25 mcg PO DAILYBB [facility] Stop: 07/30/23 06:29 Last Admin: 06/30/23 05:34 Dose: Not Given Magnesium Oxide (Magnesium Oxide 400 Mg Tab) 400 mg PO DAILY [facility] Stop: 07/30/23 08:59 Metoprolol Succinate (Metoprolol Succ 50mg Ext Rel Tab) 100 mg PO BID [facility] Stop: 07/30/23 08:59 Last Admin: 07/02/23 08:45 Dose: 100 mg Multivitamins (Multivitamin Tab) 1 tab PO DAILY [facility] Stop: 07/30/23 08:59 Nystatin (Nystatin Powder 15gm Btl) 1 appln EXT TID PRN PRN Reason: Skin Irritation Stop: 07/29/23 22:11 Ondansetron HCl (Ondansetron Inj 2 Mg/Ml 2 Ml Vial) 4 mg IV Q6H PRN PRN Reason: Nausea Stop: 07/29/23 22:11 Pantoprazole Sodium (Pantoprazole 40 Mg Tab) 40 mg PO [facility] Stop: 07/30/23 08:59 Polyethylene Glycol (Polyethylene (Miralax) 17 Gm Pack) 17 gm PO DAILY PRN PRN Reason: Constipation Stop: 07/29/23 22:11 Polymyxin/Trimethoprim Sulfate (Trimethoprim/Polymyxin B) 2 drops OPR QID [facility] Stop: 07/06/23 17:01 Last Admin: 07/02/23 13:15 Dose: 2 drops Spironolactone (Spironolactone 12.5 Mg Tab) 12.5 mg PO QAM [facility] Stop: 07/30/23 08:59 Last Admin: 07/02/23 08:45 Dose: 12.5 mg Torsemide (Torsemide 100 Mg Tab) 50 mg PO QAM [facility] Stop: 08/01/23 08:59 Last Admin: 07/02/23 08:47 Dose: 50 mg (1) Aspiration pneumonia Aspiration pneumonia type: unspecified Laterality: right Lung location: unspecified part of lung Qualified Code(s): J69.0 - Pneumonitis due to inhalation of food and vomit (8) Venous stasis ulcers Laterality: left Non-pressure ulcer stage: limited to breakdown of skin Varicose vein presence: unspecified whether present Venous stasis ulcer site: calf Qualified Code(s): I83.022 - Varicose veins of left lower extremity with ulcer of calf; L97.221 - Non-pressure chronic ulcer of left calf limited to breakdown of skin
--- NOTE | 2023-07-02 13:47 | Cardiology Progress Note ---
Date of Service July 02, 2023 Assessment & Plan (1) Hypoxia: (2) Aspiration pneumonia: (3) (HFpEF) heart failure with preserved ejection fraction: (4) Atrial fibrillation with rapid ventricular response: (5) Venous stasis ulcers: (6) HTN (hypertension): (7) Dyslipidemia: (8) CKD (chronic kidney disease) stage 3, GFR 30-59 ml/min: (9) UTI (urinary tract infection): Plan Assessment: 87 year old hearing impaired female presents after choking on a boneless chicken wing resulting in a RUL/Aspiration pneumonia. A-fib with RVR upon presentation with known permanent A-fib on chronic AC therapy. Incidental finding of an acute UTI during evaluation. * continue oral metoprolol, Eliquis. Antibiotics as necessary for infection. * Continue torsemide. Admission and Anticipated Discharge Date Admission Date: June 29, 2023 Subjective Patient resting comfortably during my assessment. Atrial fibrillation in the 90s noted on telemetry. Physical Exam Constitutional: Resting comfortably Cardiovascular: irregular rhythm, trace edema Results & Data Vital Signs (Past 12 Hours) Vital Signs Temp Pulse Resp BP BP Pulse Ox O2 Del Method 07/02/23 11:40 36.5 C 91 H 24 140/78 91 Nasal Cannula 07/02/23 07:41 36.5 C 96 H 21 153/78 H 100 Nasal Cannula 07/02/23 02:54 36.8 C 101 H 18 134/93 95 Room Air Laboratory Results CBC 07/02/23 Range/Units 06:24 WBC 14.63 H (4.8-10.8) K/ul RBC 3.86 L (4.20-5.40) M/uL Hgb 9.2 L (12.0-16.0) g/dl Hct 30.2 L (37.0-47.0) % Plt Count 254 (130-400) K/uL Comprehensive Metabolic Panel 07/02/23 Range/Units 06:24 Sodium 140 (136-145) mmol/L Potassium 4.2 (3.5-5.1) mmol/L Chloride 102 (98-107) mmol/L Carbon Dioxide 33 H (21-32) mmol/L BUN 20 (6-23) mg/dl Creatinine 1.17 (0.6-1.2) mg/dl Glucose 130 H (70-99(Fasting)) mg/dl Calcium 7.3 L (8.6-10.3) mg/dl Intake and Output 07/01/23 07/02/23 07/02/23 22:59 06:59 14:59 Intake Total 417.0 / 1740.8 440 / 1740.8 100 / 100 Output Total 2001 Balance 316.0 / -261.2 -661 / -261.2 100 / 100 Intake: IV 317.0 / 1300.8 200 / 1300.8 100 / 100 Heparin Sodium/Dextrose 25,000 119.5 / 603.3 units In 500 ml @ 750 UNITS/HR 15 mls/hr IV .Q24H [facility] Rx#: [id number] Magnesium Sulfate / D5w 1 gm In 197.5 / 297.5 100 / 297.5 100 ml @ 50 mls/hr IV Q2H [facility] Rx#:[id number] Piperacillin/Tazobactam 4.5 gm 100 / 300 100 / 100 In Dextrose 5% Mini-B 100 ml @ 25 mls/hr IV Q8H [facility] Rx#: [id number] Oral 100 / 440 240 / 440 Output: Urine 100 / 100 Urine Amount (Catheter) 1100 / 1900 External 1100 / 1900 # Bowel Movements 1 / 2 1 / 2 Other: Weight 53.4 kg (2) Aspiration pneumonia Aspiration pneumonia type: unspecified Laterality: right Lung location: unspecified part of lung Qualified Code(s): J69.0 - Pneumonitis due to inhalation of food and vomit (5) Venous stasis ulcers Venous stasis ulcer site: calf Varicose vein presence: unspecified whether present Laterality: left Non-pressure ulcer stage: limited to breakdown of skin Qualified Code(s): I83.022 - Varicose veins of left lower extremity with ulcer of calf; L97.221 - Non-pressure chronic ulcer of left calf limited to breakdown of skin
--- NOTE | 2023-07-03 04:55 | Hospitalist Progress Note ---
Date of Service July 03, 2023 Assessment & Plan (1) Aspiration pneumonia: (2) Atrial fibrillation with rapid ventricular response: (3) Current use of snf anticoagulation: (4) (HFpEF) heart failure with preserved ejection fraction: (5) Traumatic open wound of right lower leg with delayed healing: (6) PAD (peripheral artery disease): (7) Chronic venous insufficiency: (8) Venous stasis ulcers: (9) Hypothyroidism: (10) CKD (chronic kidney disease) stage 3, GFR 30-59 ml/min: (11) Dyslipidemia: (12) HTN (hypertension): (13) History of CVA (cerebrovascular accident): Plan This is a 87-year-old female with PMH of HFpEF, permanent A Fib, history of CVA, hypothyroidism, HLD, prediabetes, CKD III, history of occlusion of common femoral artery, bilateral lower extremity edema, depression, mild dementia who presents from home after a choking incident. Unable to obtain history from patient at bedside due to dementia and hearing impairment. History obtained from granddaughter in- law and grandson over the phone as well as chart review. Aspiration pna Acute hypoxic resp. failure Choking incident at home with boneless wing, feels she passed food bolus but still with wheezing in ED Saturating at 96% on 2 L NC (not on home O2 at baseline) Afebrile, WBC 15k -> WBC 36K -> 20.5K -> 14 K CXR with cardiomegaly. Interstitial thickening suggestive of interstitial pulmonary edema with small bilateral pleural effusions and associated bibasilar opacities Obtained CT chest - 1. Multifocal centrilobular airspace opacities most pronounced at the lung bases right greater than left. 2. Interstitial edema. 3. Small pleural effusions. Started on Zosyn in ED - continued - plan to switch to augmentin now pulmonary toilet Pulmonary medicine consulted Speech consulted - s/p video swallow study - diet adjusted Aspiration precautions Atrial fibrillation with RVR Granddaughter mentions elevated HRs around 110 at home this past week Initial EKG with HR 134, given 10mg bolus of diltiazem in ED Started on diltiazem drip -> now off dilt gtt Continue home metoprolol 100 bid monitor on telemetry, continue PRN IV Lopressor for HR >120 IV heparin stopped , Continue home Eliquis 2.5 bid for anticoagulation HR improved Cardiology consulted and following HFpEF Recently saw cardiology and had Torsemide increased to 60mg BID BLE at baseline Most recent 2D echo from Nov 2022 with EF 50-54%, borderline diffuse left ventricular hypokinesis, mild AV regurg, mild MV regurg, mild tricuspid regurg Continue torsemide 50 mg daily - resume home spironolactone, monitor volume status closely CT chest as above Strict I&Os, daily weights Chronic bilateral lower extremity edema Chronic Venous insufficiency Non healing wounds Following with [facility] wound care, wraps in place and edema is at baseline Continue diuretics, as above Wound care nurse Left hip swelling Noted by family, more tender and swollen on posterior aspect L hip XR - 1. No acute fracture or dislocation identified. 2. Chronic degenerative and postoperative changes as above. Dementia At mentation baseline per granddaughter of A&O x 1, also hard of hearing Monitor for delirium Prediabetes Diabetic diet PAD History of CVA History of occlusion of common femoral artery Continue statin, Plavix Hypothyroidism Continue Synthroid GERD On Protonix CKD III Cr at baseline 1.09. Follow daily BMP DVT Ppx: Eliquis Code status: DNR/DNI per discussion over phone with ARJUN cole ([phone]) PCP: Dr. Jacob Dispo: PCU , plan to DC to [facility] once medically stable Admission and Anticipated Discharge Date Admission Date: June 29, 2023 Subjective Pt seen in follow up of aspiration event, hypoxia, afib w/ RVR Currently sitting up in bed in NAD on suppl. O2 at this time She is hard of hearing and does not answer all the questions but overall not complaining of any discomfort. No chest pain, no shortness of breath, no abd. pain IV dilt stopped, and IV heparin already stopped -> back on home eliquis Seen by speech - had video swallow study Pulm and cardiology consulted WBC elevated , course breath sounds - discussed pulmonary toilet with recreation therapy teacher of Systems Review of Systems: All systems reviewed & are unremarkable except as noted in Subjective Physical Exam Physical Exam: General Appearance: WD/WN, elderly frail F in NAD, + chronically ill appearing, on suppl. O2 Head: normocephalic, atraumatic Eyes: R eye conjunctivitis ENT: external ear and nose normal Neck: normal visual inspection Respiratory: + b/l rhonchi/ coarse breath sounds Cardiovascular: irregular rate & rhythm, no murmur, + BLE edema. Vessels: no JVD Chest: normal inspection of chest Abdomen/GI: normal bowel sounds, soft, nontender Extremities/Musculoskeletal: BLE edema with chronic venous stasis changes R>L, legs wrapped,moving extremities Neurologic: awake and alert, able to answers simple questions, PERRL, EOMI, moves all extremities Skin: warm/dry, venous stasis changes on LE as above Results & Data Results & Data Vital Signs (Past 12 Hours) Vital Signs Temp Pulse Resp BP Pulse Ox Pulse Ox O2 Del Method 07/03/23 02:49 36.5 C 79 18 140/87 99 Nasal Cannula 07/02/23 22:28 36.8 C 90 18 138/72 97 Nasal Cannula 07/02/23 21:00 97 07/02/23 20:20 Nasal Cannula 07/02/23 19:23 36.6 C 71 20 146/79 H 94 Nasal Cannula O2 Del Method O2 Flow Rate O2 Flow Rate 07/03/23 02:49 07/02/23 22:28 2 07/02/23 21:00 Nasal Cannula 2 07/02/23 20:20 2 07/02/23 19:23 Laboratory Results 07/03/23 Range/Units 06:38 WBC 16.18 H (4.8-10.8) K/ul RBC 4.12 L (4.20-5.40) M/uL Hgb 9.9 L (12.0-16.0) g/dl Hct 32.6 L (37.0-47.0) % MCV 79.1 L (80.0-100.0) fL MCH 24.0 L (25.0-34.0) pg MCHC 30.4 L (32.0-36.0) g/dL RDW Std Deviation 51.9 H (36.4-46.3) fL RDW Coeff of Cain 18.1 H (11.5-14.5) % Plt Count 288 (130-400) K/uL MPV 10.4 (9.4-12.4) fL Sodium 140 (136-145) mmol/L Potassium 4.0 (3.5-5.1) mmol/L Chloride 101 (98-107) mmol/L Carbon Dioxide 33 H (21-32) mmol/L Anion Gap 6 (3-11) BUN 18 (6-23) mg/dl Creatinine 1.10 (0.6-1.2) mg/dl Est Cr Clr Drug Dosing 29.1 ml/min Est GFR ( Amer) 51.5 ml/min Est GFR (Non-Af Amer) 44.5 ml/min BUN/Creatinine Ratio 16.4 (10-20) Glucose 121 H (70-99(Fasting)) mg/dl Calcium 7.4 L (8.6-10.3) mg/dl Phosphorus 3.5 (2.5-4.9) mg/dl Magnesium 2.0 (1.7-2.4) mg/dl Medications Administered Current Inpatient Medications Acetaminophen (Acetaminophen 325 Mg Tab) 650 mg PO Q4H PRN PRN Reason: Pain or Fever Stop: 07/29/23 22:11 Albuterol (Albuterol 0.083% Nebu Soln 3 Ml Vial) 2.5 mg INH DAILY PRN; Protocol PRN Reason: Wheezing Stop: 07/29/23 22:11 Last Admin: 06/30/23 20:41 Dose: 2.5 mg Apixaban (Apixaban 2.5 Mg Tab) 2.5 mg PO BID [facility] Stop: 07/29/23 22:11 Last Admin: 07/02/23 21:18 Dose: 2.5 mg Atorvastatin Calcium (Atorvastatin 10 Mg Tab) 10 mg PO HS [facility] Stop: 07/29/23 22:11 Last Admin: 07/02/23 21:18 Dose: 10 mg Clopidogrel Bisulfate (Clopidogrel Bisulfate 75 Mg Tab) 75 mg PO QAM [facility] Stop: 07/30/23 08:59 Cyanocobalamin (Cyanocobalamin (B-12) 500 Mcg Tablet) 1,000 mcg PO DAILY [facility] Stop: 07/30/23 08:59 Docusate Sodium (Docusate Sodium 100 Mg Cap) 100 mg PO BID PRN PRN Reason: Constipation Stop: 07/29/23 22:11 Fluticasone Propionate (Fluticasone Propionate Na Spr 16 Gm Btl) 2 sprays SHOSHANA DAILY PRN PRN Reason: Congestion Stop: 07/29/23 22:11 Piperacillin Sod/Tazobactam (Sod 4.5 gm/ Dextrose) 100 mls @ 25 mls/hr IV Q8H [facility]; Protocol Stop: 07/07/23 01:59 Last Infusion: 07/03/23 05:40 Dose: Infused Levothyroxine Sodium (Levothyroxine Sodium 25 Mcg Tablet) 25 mcg PO DAILYBB [facility] Stop: 07/30/23 06:29 Last Admin: 07/03/23 05:38 Dose: 25 mcg Magnesium Oxide (Magnesium Oxide 400 Mg Tab) 400 mg PO DAILY [facility] Stop: 07/30/23 08:59 Metoprolol Succinate (Metoprolol Succ 50mg Ext Rel Tab) 100 mg PO BID [facility] Stop: 07/30/23 08:59 Last Admin: 07/02/23 21:18 Dose: 100 mg Multivitamins (Multivitamin Tab) 1 tab PO DAILY [facility] Stop: 07/30/23 08:59 Nystatin (Nystatin Powder 15gm Btl) 1 appln EXT TID PRN PRN Reason: Skin Irritation Stop: 07/29/23 22:11 Ondansetron HCl (Ondansetron Inj 2 Mg/Ml 2 Ml Vial) 4 mg IV Q6H PRN PRN Reason: Nausea Stop: 07/29/23 22:11 Pantoprazole Sodium (Pantoprazole 40 Mg Tab) [facility] [place] Stop: 07/30/23 08:59 Polyethylene Glycol (Polyethylene (Miralax) 17 Gm Pack) 17 gm PO DAILY PRN PRN Reason: Constipation Stop: 07/29/23 22:11 Polymyxin/Trimethoprim Sulfate (Trimethoprim/Polymyxin B) 2 drops OPR QID [facility] Stop: 07/06/23 17:01 Last Admin: 07/02/23 21:18 Dose: 2 drops Spironolactone (Spironolactone 12.5 Mg Tab) 12.5 mg PO QAM [facility] Stop: 07/30/23 08:59 Last Admin: 07/02/23 08:45 Dose: 12.5 mg Torsemide (Torsemide 100 Mg Tab) 50 mg PO QAM [facility] Stop: 08/01/23 08:59 Last Admin: 07/02/23 08:47 Dose: 50 mg (1) Aspiration pneumonia Aspiration pneumonia type: unspecified Laterality: right Lung location: unspecified part of lung Qualified Code(s): J69.0 - Pneumonitis due to inhalation of food and vomit (8) Venous stasis ulcers Laterality: left Non-pressure ulcer stage: limited to breakdown of skin Varicose vein presence: unspecified whether present Venous stasis ulcer site: calf Qualified Code(s): I83.022 - Varicose veins of left lower extremity with ulcer of calf; L97.221 - Non-pressure chronic ulcer of left calf limited to breakdown of skin
[2023-07-03 06:57] LABS: Hematocrit (blood only) 32.6 % (37.0-47.0); Hemoglobin 9.9 g/dl (12.0-16.0); Mean Corpuscular Hgb Conc 30.4 g/dL (32.0-36.0); Mean Corpuscular Volume 79.1 fL (80.0-100.0); Mean Platelet Volume 10.4 fL (9.4-12.4); Platelet Count 288 K/uL (130-400); RDW Coefficient of Variation 18.1 % (11.5-14.5); RDW Standard Deviation 51.9 fL (36.4-46.3); Red Blood Count 4.12 M/uL (4.20-5.40); White Blood Count 16.18 K/ul (4.8-10.8)
[2023-07-03 07:32] LABS: BUN Creatinine Ratio 16.4 (10-20); Calcium 7.4 mg/dl (8.6-10.3); Creatinine Clr Calc Pharmacy 29.1 ml/min; Est GFR (African American) 51.5 ml/min; Est GFR (Non-African American) 44.5 ml/min; Phosphorus 3.5 mg/dl (2.5-4.9)
[2023-07-03] MEDS: FLUTICASONE PROPIONATE NA SPR 16 GM BTL NAE PRN (08:39)
[2023-07-03] MEDS: PANTOprazole 40 MG TAB PO SCH (09:20)
[2023-07-03] MEDS: CLOPIDOGREL BISULFATE 75 MG TAB PO SCH (09:20)
[2023-07-03] MEDS: CYANOCOBALAMIN (B-12) 500 MCG TABLET PO SCH (09:20)
--- NOTE | 2023-07-03 10:08 | Cardiology Progress Note ---
Date of Service July 03, 2023 Assessment & Plan (1) Aspiration pneumonia: (2) Atrial fibrillation with rapid ventricular response: (3) (HFpEF) heart failure with preserved ejection fraction: Plan: results now rates reasonably well-controlled on metoprolol succinate 100 mg twice daily Continue Eliquis 2.5 mg twice daily Continue spironolactone 12.5 mg daily, torsemide 50 mg p.o. daily. May need additional diuretics given administration of IV Zosyn to keep intake and output even. Admission and Anticipated Discharge Date Admission Date: June 29, 2023 Subjective Patient seen in cardiology follow-up. More alert today. Subjective complaints. Telemetry reveals atrial fibrillation in the 90s. Physical Exam Physical Exam: General: no acute distress and stated age Eyes: conjunctiva are pink and non-injected, sclera clear Neck: normal jugular venous pulse, no hepatojugular reflux Chest: normal shape and normal respiratory effort Lungs: clear to auscultation and percussion Cardiac Exam: -Regular rhythm, 1/6 systolic murmur Abdomen: abdomen soft, non-tender, no abnormal masses and no hepatosplenomegaly Musculoskeletal: no gait disturbance, no weakness Extremities: Trace to 1+ bilateral lower extremity edema Neuro:awake, conversant, follows commands, no focal motor deficits Psych: appropriate affect and insight. Results & Data Vital Signs (Past 12 Hours) Vital Signs Temp Pulse Resp BP Pulse Ox O2 Del Method O2 Flow Rate 07/03/23 08:44 36.8 C 95 H 20 143/97 H 90 Nasal Cannula 2 07/03/23 02:49 36.5 C 79 18 140/87 99 Nasal Cannula 07/02/23 22:28 36.8 C 90 18 138/72 97 Nasal Cannula 2 (1) Aspiration pneumonia Aspiration pneumonia type: unspecified Laterality: right Lung location: unspecified part of lung Qualified Code(s): J69.0 - Pneumonitis due to inhalation of food and vomit
[2023-07-03] MEDS: FUROSEMIDE INJ 20 MG/2 ML VIAL IV ONE (14:52)
[2023-07-03] MEDS: AMOXICILLIN/CLAVULANATE 875 MG TAB PO SCH (16:40)
[2023-07-04 05:46] LABS: Hematocrit (blood only) 34.6 % (37.0-47.0); Hemoglobin 10.1 g/dl (12.0-16.0); Mean Corpuscular Hemoglobin 23.6 pg (25.0-34.0); Mean Corpuscular Hgb Conc 29.2 g/dL (32.0-36.0); Mean Corpuscular Volume 80.8 fL (80.0-100.0); Mean Platelet Volume 10.1 fL (9.4-12.4); Platelet Count 267 K/uL (130-400); RDW Coefficient of Variation 18.2 % (11.5-14.5); RDW Standard Deviation 52.8 fL (36.4-46.3); Red Blood Count 4.28 M/uL (4.20-5.40)
[2023-07-04 07:33] LABS: BUN Creatinine Ratio 16.7 (10-20); Calcium 7.5 mg/dl (8.6-10.3); Creatinine Clr Calc Pharmacy 40.2 ml/min; Est GFR (African American) 56.5 ml/min; Est GFR (Non-African American) 48.7 ml/min; Magnesium 1.8 mg/dl (1.7-2.4); Phosphorus 3.2 mg/dl (2.5-4.9); Potassium 3.2 mmol/L (3.5-5.1)
--- NOTE | 2023-07-04 07:36 | Hospitalist Progress Note ---
Date of Service July 04, 2023 Assessment & Plan (1) Aspiration pneumonia: (2) Atrial fibrillation with rapid ventricular response: (3) Current use of [facility] anticoagulation: (4) (HFpEF) heart failure with preserved ejection fraction: (5) Traumatic open wound of right lower leg with delayed healing: (6) PAD (peripheral artery disease): (7) Chronic venous insufficiency: (8) Venous stasis ulcers: (9) Hypothyroidism: (10) CKD (chronic kidney disease) stage 3, GFR 30-59 ml/min: (11) Dyslipidemia: (12) HTN (hypertension): (13) History of CVA (cerebrovascular accident): Plan This is a 87-year-old female with PMH of HFpEF, permanent A Fib, history of CVA, hypothyroidism, HLD, prediabetes, CKD III, history of occlusion of common femoral artery, bilateral lower extremity edema, depression, mild dementia who presents from home after a choking incident. Unable to obtain history from patient at bedside due to dementia and hearing impairment. History obtained from granddaughter in- law and grandson over the phone as well as chart review. Aspiration pna Acute hypoxic resp. failure Choking incident at home with boneless wing, feels she passed food bolus but still with wheezing in ED Saturating at 96% on 2 L NC (not on home O2 at baseline) Afebrile, WBC 15k -> WBC 36K -> 20.5K -> 14 K CXR with cardiomegaly. Interstitial thickening suggestive of interstitial pulmonary edema with small bilateral pleural effusions and associated bibasilar opacities Obtained CT chest - 1. Multifocal centrilobular airspace opacities most pronounced at the lung bases right greater than left. 2. Interstitial edema. 3. Small pleural effusions. Started on Zosyn in ED - continued -> switched to augmentin pulmonary toilet Pulmonary medicine consulted Speech consulted - s/p video swallow study - diet adjusted Aspiration precautions Atrial fibrillation with RVR Granddaughter mentions elevated HRs around 110 at home this past week Initial EKG with HR 134, given 10mg bolus of diltiazem in ED Started on diltiazem drip -> now off dilt gtt Continue home metoprolol 100 bid monitor on telemetry, continue PRN IV Lopressor for HR >120 IV heparin stopped , Continue home Eliquis 2.5 bid for anticoagulation HR improved Cardiology consulted and following HFpEF Recently saw cardiology and had Torsemide increased to 60mg BID BLE at baseline Most recent 2D echo from Nov 2022 with EF 50-54%, borderline diffuse left ventricular hypokinesis, mild AV regurg, mild MV regurg, mild tricuspid regurg Continue torsemide 50 mg daily - resumed home spironolactone, monitor volume status closely CT chest as above Strict I&Os, daily weights Chronic bilateral lower extremity edema Chronic Venous insufficiency Non healing wounds Following with [facility] wound care, wraps in place and edema is at baseline Continue diuretics, as above Wound care nurse Left hip swelling Noted by family, more tender and swollen on posterior aspect L hip XR - 1. No acute fracture or dislocation identified. 2. Chronic degenerative and postoperative changes as above. Dementia At mentation baseline per granddaughter of A&O x 1, also hard of hearing Monitor for delirium Prediabetes Diabetic diet PAD History of CVA History of occlusion of common femoral artery Continue statin, Plavix Hypothyroidism Continue Synthroid GERD On Protonix CKD III Cr at baseline 1.09. Follow daily BMP DVT Ppx: Eliquis Code status: DNR/DNI per discussion over phone with ARJUN cole ([phone]) PCP: Dr. Jacob Dispo: PCU , plan to DC to [facility] once medically stable Admission and Anticipated Discharge Date Admission Date: June 29, 2023 Subjective Pt seen in follow up of aspiration event, hypoxia, afib w/ RVR Currently sitting up in bed in NAD on suppl. O2 at this time She is hard of hearing No chest pain, or abd. pain, but feels some shortness of breath however appears comfortable and talks to family at the bedside IV dilt stopped, and IV heparin already stopped -> back on home eliquis Seen by speech - had video swallow study Pulm and cardiology consulted discussed pulmonary toilet with RN -> plan to DC to [facility] hopefully tmrw Review of Systems Review of Systems: All systems reviewed & are unremarkable except as noted in Subjective Physical Exam Physical Exam: General Appearance: WD/WN, elderly frail F in NAD, + chronically ill appearing, on suppl. O2 Head: normocephalic, atraumatic Eyes: R eye conjunctivitis - improved ENT: external ear and nose normal Neck: normal visual inspection Respiratory: + b/l rhonchi Cardiovascular: irregular rate & rhythm, no murmur, + BLE edema. Vessels: no JVD Chest: normal inspection of chest Abdomen/GI: normal bowel sounds, soft, nontender Extremities/Musculoskeletal: BLE edema with chronic venous stasis changes R>L, legs wrapped,moving extremities Neurologic: awake and alert, able to answers simple questions, PERRL, EOMI, moves all extremities Skin: warm/dry, venous stasis changes on LE as above Results & Data Results & Data Vital Signs (Past 12 Hours) Vital Signs Temp Pulse Pulse Resp BP Pulse Ox Pulse Ox 07/04/23 03:19 36.6 C 82 18 142/78 H 98 07/04/23 01:35 07/03/23 22:48 36.7 C 94 H 25 H 129/81 100 07/03/23 22:00 91 H 07/03/23 21:00 99 07/03/23 19:43 36.7 C 91 H 18 160/79 H 100 O2 Del Method O2 Del Method O2 Flow Rate 07/04/23 03:19 Nasal Cannula 2.0 07/04/23 01:35 Room Air 07/03/23 22:48 Nasal Cannula 2.0 07/03/23 22:00 07/03/23 21:00 Room Air 07/03/23 19:43 Nasal Cannula 2.0 Laboratory Results 07/04/23 Range/Units 05:24 WBC 16.10 H (4.8-10.8) K/ul RBC 4.28 (4.20-5.40) M/uL Hgb 10.1 L (12.0-16.0) g/dl Hct 34.6 L (37.0-47.0) % MCV 80.8 (80.0-100.0) fL MCH 23.6 L (25.0-34.0) pg MCHC 29.2 L (32.0-36.0) g/dL RDW Std Deviation 52.8 H (36.4-46.3) fL RDW Coeff of Cain 18.2 H (11.5-14.5) % Plt Count 267 (130-400) K/uL MPV 10.1 (9.4-12.4) fL Sodium 141 (136-145) mmol/L Potassium 3.2 L (3.5-5.1) mmol/L Chloride 99 (98-107) mmol/L Carbon Dioxide 37 H (21-32) mmol/L Anion Gap 5 (3-11) BUN 17 (6-23) mg/dl Creatinine 1.02 (0.6-1.2) mg/dl Est Cr Clr Drug Dosing 40.2 ml/min Est GFR ( Amer) 56.5 ml/min Est GFR (Non-Af Amer) 48.7 ml/min BUN/Creatinine Ratio 16.7 (10-20) Glucose 89 (70-99(Fasting)) mg/dl Calcium 7.5 L (8.6-10.3) mg/dl Phosphorus 3.2 (2.5-4.9) mg/dl Magnesium 1.8 (1.7-2.4) mg/dl Medications Administered Current Inpatient Medications Acetaminophen (Acetaminophen 325 Mg Tab) 650 mg PO Q4H PRN PRN Reason: Pain or Fever Stop: 07/29/23 22:11 Albuterol (Albuterol 0.083% Nebu Soln 3 Ml Vial) 2.5 mg INH DAILY PRN; Protocol PRN Reason: Wheezing Stop: 07/29/23 22:11 Last Admin: 06/30/23 20:41 Dose: 2.5 mg Amoxicillin/Clavulanate Potassium (Amoxicillin/Clavulanate 875 Mg Tab) 1 tab PO BIDM [facility]; Protocol Stop: 07/10/23 16:59 Last Admin: 07/03/23 16:40 Dose: 1 tab Apixaban (Apixaban 2.5 Mg Tab) 2.5 mg PO BID [facility] Stop: 07/29/23 22:11 Last Admin: 07/03/23 21:15 Dose: 2.5 mg Atorvastatin Calcium (Atorvastatin 10 Mg Tab) 10 mg PO HS [facility] Stop: 07/29/23 22:11 Last Admin: 07/03/23 21:15 Dose: 10 mg Clopidogrel Bisulfate (Clopidogrel Bisulfate 75 Mg Tab) 75 mg PO QAM [facility] Stop: 07/30/23 08:59 Last Admin: 07/03/23 09:20 Dose: 75 mg Cyanocobalamin (Cyanocobalamin (B-12) 500 Mcg Tablet) 1,000 mcg PO DAILY [facility] Stop: 07/30/23 08:59 Last Admin: 07/03/23 09:20 Dose: 1,000 mcg Docusate Sodium (Docusate Sodium 100 Mg Cap) 100 mg PO BID PRN PRN Reason: Constipation Stop: 07/29/23 22:11 Fluticasone Propionate (Fluticasone Propionate Na Spr 16 Gm Btl) 2 sprays SHOSHANA DAILY PRN PRN Reason: Congestion Stop: 07/29/23 22:11 Last Admin: 07/03/23 08:39 Dose: 2 sprays Guaifenesin (Guaifenesin 600 Mg Tabcr) 600 mg PO Q12 [facility] Stop: 08/03/23 08:59 Levothyroxine Sodium (Levothyroxine Sodium 25 Mcg Tablet) 25 mcg PO DAILYBB [facility] Stop: 07/30/23 06:29 Last Admin: 07/04/23 05:16 Dose: 25 mcg Magnesium Oxide (Magnesium Oxide 400 Mg Tab) 400 mg PO DAILY [facility] Stop: 07/30/23 08:59 Metoprolol Succinate (Metoprolol Succ 50mg Ext Rel Tab) 100 mg PO BID [facility] Stop: 07/30/23 08:59 Last Admin: 07/03/23 21:15 Dose: 100 mg Multivitamins (Multivitamin Tab) 1 tab PO DAILY [facility] Stop: 07/30/23 08:59 Nystatin (Nystatin Powder 15gm Btl) 1 appln EXT TID PRN PRN Reason: Skin Irritation Stop: 07/29/23 22:11 Ondansetron HCl (Ondansetron Inj 2 Mg/Ml 2 Ml Vial) 4 mg IV Q6H PRN PRN Reason: Nausea Stop: 07/29/23 22:11 Pantoprazole Sodium (Pantoprazole 40 Mg Tab) 40 mg PO QAM [facility] Stop: 07/30/23 08:59 Last Admin: 07/03/23 09:20 Dose: 40 mg Polyethylene Glycol (Polyethylene (Miralax) 17 Gm Pack) 17 gm PO DAILY PRN PRN Reason: Constipation Stop: 07/29/23 22:11 Polymyxin/Trimethoprim Sulfate (Trimethoprim/Polymyxin B) 2 drops OPR QID [facility] Stop: 07/06/23 17:01 Last Admin: 07/03/23 21:15 Dose: 2 drops Potassium Chloride (Potassium Chloride Pwd 20 Meq Pack) 40 meq PO ONE ONE Stop: 07/04/23 07:36 Spironolactone (Spironolactone 12.5 Mg Tab) 12.5 mg PO QAM [facility] Stop: 07/30/23 08:59 Last Admin: 07/03/23 08:40 Dose: 12.5 mg Torsemide (Torsemide 100 Mg Tab) 50 mg PO QAM [facility] Stop: 08/01/23 08:59 Last Admin: 07/03/23 08:39 Dose: 50 mg (1) Aspiration pneumonia Aspiration pneumonia type: unspecified Laterality: right Lung location: unspecified part of lung Qualified Code(s): J69.0 - Pneumonitis due to inhalation of food and vomit (8) Venous stasis ulcers Laterality: left Non-pressure ulcer stage: limited to breakdown of skin Varicose vein presence: unspecified whether present Venous stasis ulcer site: calf Qualified Code(s): I83.022 - Varicose veins of left lower extremity with ulcer of calf; L97.221 - Non-pressure chronic ulcer of left calf limited to breakdown of skin
[2023-07-04] MEDS: POTASSIUM CHLORIDE PWD 20 MEQ PACK PO ONE ×2 (08:26→14:00)
[2023-07-04] MEDS: guaiFENesin 600 MG TABCR PO SCH (08:26)
--- NOTE | 2023-07-04 10:17 | 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 Note ---
Date of Service: July 04, 2023 Telemetry and vital signs reviewed. At rest, atrial fibrillation with ventricular rate in 80s to 90s present. Continue metoprolol succinate 100 mg twice daily, Eliquis 2.5 mg twice daily. Shad Mondragon DO
[2023-07-04] MEDS: FUROSEMIDE INJ 20 MG/2 ML VIAL IV ONE (13:59)
[2023-07-05 06:41] LABS: Hematocrit (blood only) 33.9 % (37.0-47.0); Mean Corpuscular Hemoglobin 23.4 pg (25.0-34.0); Mean Corpuscular Hgb Conc 29.5 g/dL (32.0-36.0); Mean Corpuscular Volume 79.4 fL (80.0-100.0); Mean Platelet Volume 10.5 fL (9.4-12.4); Platelet Count 267 K/uL (130-400); RDW Coefficient of Variation 18.6 % (11.5-14.5); Red Blood Count 4.27 M/uL (4.20-5.40); White Blood Count 16.59 K/ul (4.8-10.8)
[2023-07-05 06:55] LABS: BUN Creatinine Ratio 16.7 (10-20); Calcium 7.5 mg/dl (8.6-10.3); Creatinine Clr Calc Pharmacy 47.7 ml/min; Est GFR (African American) 71.4 ml/min; Est GFR (Non-African American) 61.6 ml/min; Magnesium 1.6 mg/dl (1.7-2.4); Phosphorus 2.8 mg/dl (2.5-4.9); Potassium 3.7 mmol/L (3.5-5.1)
[2023-07-05] MEDS: POTASSIUM CHLORIDE PWD 20 MEQ PACK PO ONE (08:47)
[2023-07-05] MEDS: MAGNESIUM SULFATE / D5W 1 GM/100 ML BAG IV ONE ×2 (08:47→11:22)
--- NOTE | 2023-07-05 09:06 | Hospitalist Progress Note ---
Date of Service July 05, 2023 Assessment & Plan (1) Aspiration pneumonia: (2) Atrial fibrillation with rapid ventricular response: (3) Current use of [facility] anticoagulation: (4) (HFpEF) heart failure with preserved ejection fraction: (5) Traumatic open wound of right lower leg with delayed healing: (6) PAD (peripheral artery disease): (7) Chronic venous insufficiency: (8) Venous stasis ulcers: (9) Hypothyroidism: (10) CKD (chronic kidney disease) stage 3, GFR 30-59 ml/min: (11) Dyslipidemia: (12) HTN (hypertension): (13) History of CVA (cerebrovascular accident): Plan This is a 87-year-old female with PMH of HFpEF, permanent A Fib, history of CVA, hypothyroidism, HLD, prediabetes, CKD III, history of occlusion of common femoral artery, bilateral lower extremity edema, depression, mild dementia who presents from home after a choking incident. Unable to obtain history from patient at bedside due to dementia and hearing impairment. History obtained from granddaughter in- law and grandson over the phone as well as chart review. Aspiration pna Acute hypoxic resp. failure Choking incident at home with boneless wing, feels she passed food bolus but still with wheezing in ED Saturating at 96% on 2 L NC (not on home O2 at baseline) Afebrile, WBC 15k -> WBC 36K -> 20.5K -> 14 K CXR with cardiomegaly. Interstitial thickening suggestive of interstitial pulmonary edema with small bilateral pleural effusions and associated bibasilar opacities Obtained CT chest - 1. Multifocal centrilobular airspace opacities most pronounced at the lung bases right greater than left. 2. Interstitial edema. 3. Small pleural effusions. Started on Zosyn in ED - continued -> switched to augmentin pulmonary toilet Pulmonary medicine consulted Speech consulted - s/p video swallow study - diet adjusted Aspiration precautions Atrial fibrillation with RVR Granddaughter mentions elevated HRs around 110 at home this past week Initial EKG with HR 134, given 10mg bolus of diltiazem in ED Started on diltiazem drip -> now off dilt gtt Continue home metoprolol 100 bid monitor on telemetry, continue PRN IV Lopressor for HR >120 IV heparin stopped , Continue home Eliquis 2.5 bid for anticoagulation HR improved Cardiology consulted and following HFpEF Recently saw cardiology and had Torsemide increased to 60mg BID BLE at baseline Most recent 2D echo from Nov 2022 with EF 50-54%, borderline diffuse left ventricular hypokinesis, mild AV regurg, mild MV regurg, mild tricuspid regurg Continue torsemide 50 mg daily - resumed home spironolactone, monitor volume status closely (received iv lasix 10 x2 last days) CT chest as above Strict I&Os, daily weights Chronic bilateral lower extremity edema Chronic Venous insufficiency Non healing wounds Following with [facility], wraps in place and edema is at baseline Continue diuretics, as above Wound care nurse Left hip swelling Noted by family, more tender and swollen on posterior aspect L hip XR - 1. No acute fracture or dislocation identified. 2. Chronic degenerative and postoperative changes as above. Dementia At mentation baseline per granddaughter of A&O x 1, also hard of hearing Monitor for delirium Prediabetes Diabetic diet PAD History of CVA History of occlusion of common femoral artery Continue statin, Plavix Hypothyroidism Continue Synthroid GERD On Protonix CKD III Cr at baseline 1.09. Follow daily BMP DVT Ppx: Eliquis Code status: DNR/DNI per discussion over phone with ARJUN cole ([phone]) PCP: Dr. Jacob Dispo: PCU , plan to DC to [facility] once medically stable Admission and Anticipated Discharge Date Admission Date: June 29, 2023 Subjective Pt seen in follow up of aspiration event, hypoxia, afib w/ RVR Currently sitting up in bed in NAD on suppl. O2 at this time She is hard of hearing No chest pain, or abd. pain, breathing is improved today, feels better IV dilt stopped, and IV heparin already stopped -> back on home eliquis Seen by speech - had video swallow study Pulm and cardiology consulted discussed pulmonary toilet with RN -> plan to DC to [facility] once medically stable received 10 iv lasix yesterday in addition to po torsemide and breathing is improved, will likely give again today, follow up CXR Review of Systems Review of Systems: All systems reviewed & are unremarkable except as noted in Subjective Physical Exam Physical Exam: General Appearance: WD/WN, elderly frail F in NAD, + chronically ill appearing, on suppl. O2 Head: normocephalic, atraumatic Eyes: R eye conjunctivitis - improved ENT: external ear and nose normal Neck: normal visual inspection Respiratory: + b/l rhonchi (improved0 Cardiovascular: irregular rate & rhythm, no murmur, + BLE edema (improved). Vessels: no JVD Chest: normal inspection of chest Abdomen/GI: normal bowel sounds, soft, nontender Extremities/Musculoskeletal: BLE edema (improved)with chronic venous stasis changes R>L, legs wrapped,moving extremities Neurologic: awake and alert, able to answers simple questions, PERRL, EOMI, moves all extremities Skin: warm/dry, venous stasis changes on LE as above Results & Data Results & Data Vital Signs (Past 12 Hours) Vital Signs Temp Pulse Pulse Resp BP Pulse Ox O2 Del Method 07/05/23 08:06 36.6 C 97 H 20 141/64 H 92 Nasal Cannula 07/05/23 07:31 114 H 07/05/23 02:41 36.5 C 91 H 22 132/78 90 Nasal Cannula 07/04/23 22:30 36.6 C 89 17 136/76 98 Nasal Cannula O2 Flow Rate 07/05/23 08:06 07/05/23 07:31 07/05/23 02:41 07/04/23 22:30 1.0 Laboratory Results 07/05/23 Range/Units 05:54 WBC 16.59 H (4.8-10.8) K/ul RBC 4.27 (4.20-5.40) M/uL Hgb 10.0 L (12.0-16.0) g/dl Hct 33.9 L (37.0-47.0) % MCV 79.4 L (80.0-100.0) fL MCH 23.4 L (25.0-34.0) pg MCHC 29.5 L (32.0-36.0) g/dL RDW Std Deviation 53.0 H (36.4-46.3) fL RDW Coeff of Cain 18.6 H (11.5-14.5) % Plt Count 267 (130-400) K/uL MPV 10.5 (9.4-12.4) fL Sodium 141 (136-145) mmol/L Potassium 3.7 (3.5-5.1) mmol/L Chloride 98 (98-107) mmol/L Carbon Dioxide 36 H (21-32) mmol/L Anion Gap 7 (3-11) BUN 14 (6-23) mg/dl Creatinine 0.84 (0.6-1.2) mg/dl Est Cr Clr Drug Dosing 47.7 ml/min Est GFR ( Amer) 71.4 ml/min Est GFR (Non-Af Amer) 61.6 ml/min BUN/Creatinine Ratio 16.7 (10-20) Glucose 135 H (70-99(Fasting)) mg/dl Calcium 7.5 L (8.6-10.3) mg/dl Phosphorus 2.8 (2.5-4.9) mg/dl Magnesium 1.6 L (1.7-2.4) mg/dl Medications Administered Current Inpatient Medications Acetaminophen (Acetaminophen 325 Mg Tab) 650 mg PO Q4H PRN PRN Reason: Pain or Fever Stop: 07/29/23 22:11 Albuterol (Albuterol 0.083% Nebu Soln 3 Ml Vial) 2.5 mg INH DAILY PRN; Protocol PRN Reason: Wheezing Stop: 07/29/23 22:11 Last Admin: 06/30/23 20:41 Dose: 2.5 mg Amoxicillin/Clavulanate Potassium (Amoxicillin/Clavulanate 875 Mg Tab) 1 tab PO [facility]IDM [facility]; Protocol Stop: 07/10/23 16:59 Last Admin: 07/05/23 08:39 Dose: 1 tab Apixaban (Apixaban 2.5 Mg Tab) 2.5 mg PO BID [facility] Stop: 07/29/23 22:11 Last Admin: 07/05/23 08:39 Dose: 2.5 mg Atorvastatin Calcium (Atorvastatin 10 Mg Tab) 10 mg PO [facility] Stop: 07/29/23 22:11 Last Admin: 07/04/23 20:22 Dose: 10 mg Clopidogrel Bisulfate (Clopidogrel Bisulfate 75 Mg Tab) 75 mg PO QAM [facility] Stop: 07/30/23 08:59 Last Admin: 07/05/23 08:39 Dose: 75 mg Cyanocobalamin (Cyanocobalamin (B-12) 500 Mcg Tablet) 1,000 mcg PO DAILY [facility] Stop: 07/30/23 08:59 Last Admin: 07/05/23 08:39 Dose: 1,000 mcg Docusate Sodium (Docusate Sodium 100 Mg Cap) 100 mg PO BID PRN PRN Reason: Constipation Stop: 07/29/23 22:11 Fluticasone Propionate (Fluticasone Propionate Na Spr 16 Gm Btl) 2 sprays SHOSHANA DAILY PRN PRN Reason: Congestion Stop: 07/29/23 22:11 Last Admin: 07/03/23 08:39 Dose: 2 sprays Guaifenesin (Guaifenesin 600 Mg Tabcr) 600 mg PO Q12 [facility] Stop: 08/03/23 08:59 Last Admin: 07/05/23 08:39 Dose: 600 mg Magnesium Sulfate/Dextrose (Magnesium Sulfate / D5w) 1 gm in 100 mls @ 50 mls/ hr IV ONE ONE Stop: 07/05/23 10:12 Last Admin: 07/05/23 08:47 Dose: 50 mls/hr Levothyroxine Sodium (Levothyroxine Sodium 25 Mcg Tablet) 25 mcg PO DAILYBB [facility] Stop: 07/30/23 06:29 Last Admin: 07/05/23 06:33 Dose: 25 mcg Magnesium Oxide (Magnesium Oxide 400 Mg Tab) 400 mg PO DAILY [facility] Stop: 07/30/23 08:59 Metoprolol Succinate (Metoprolol Succ 50mg Ext Rel Tab) 100 mg PO BID [facility] Stop: 07/30/23 08:59 Last Admin: 07/05/23 08:39 Dose: 100 mg Multivitamins (Multivitamin Tab) 1 tab PO DAILY [facility] Stop: 07/30/23 08:59 Nystatin (Nystatin Powder 15gm Btl) 1 appln EXT TID PRN PRN Reason: Skin Irritation Stop: 07/29/23 22:11 Ondansetron HCl (Ondansetron Inj 2 Mg/Ml 2 Ml Vial) 4 mg IV Q6H PRN PRN Reason: Nausea Stop: 07/29/23 22:11 Pantoprazole Sodium (Pantoprazole 40 Mg Tab) 40 mg PO QAM [facility] Stop: 07/30/23 08:59 Last Admin: 07/05/23 08:39 Dose: 40 mg Polyethylene Glycol (Polyethylene (Miralax) 17 Gm Pack) 17 gm PO DAILY PRN PRN Reason: Constipation Stop: 07/29/23 22:11 Polymyxin/Trimethoprim Sulfate (Trimethoprim/Polymyxin B) 2 drops OPR QID [facility] Stop: 07/06/23 17:01 Last Admin: 07/05/23 08:40 Dose: 2 drops Spironolactone (Spironolactone 12.5 Mg Tab) 12.5 mg PO QAM [facility] Stop: 07/30/23 08:59 Last Admin: 07/05/23 08:39 Dose: 12.5 mg Torsemide (Torsemide 100 Mg Tab) 50 mg PO QAM [facility] Stop: 08/01/23 08:59 Last Admin: 07/05/23 08:39 Dose: 50 mg (1) Aspiration pneumonia Aspiration pneumonia type: unspecified Laterality: right Lung location: unspecified part of lung Qualified Code(s): J69.0 - Pneumonitis due to inhal ation of food and vomit (8) Venous stasis ulcers Venous stasis ulcer site: calf Varicose vein presence: unspecified whether present Laterality: left Non-pressure ulcer stage: limited to breakdown of skin Qualified Code(s): I83.022 - Varicose veins of left lower extremity with ulcer of calf; L97.221 - Non-pressure chronic ulcer of left calf limited to breakdown of skin
--- NOTE | 2023-07-05 09:30 | XRay Report ---
SINGLE VIEW CHEST CLINICAL HISTORY: Congestive failure. FINDINGS: An AP, portable, upright chest radiograph is compared to chest x-ray and chest CT dated 06/08. The heart is enlarged noting atherosclerotic calcification of the thoracic aorta. There is pu lmonary vascular congestion. There are layering pleural effusions with dependent consolidation. No pn eumothorax is seen. The skeletal structures are osteopenic. The bony thorax is grossly intact. Degene rative change is noted in the shoulders and spine. IMPRESSION: 1. Cardiomegaly with evidence of congestive failure. This has modestly worsened as compared to 024. 2. Layering pleural effusions with dependent consolidation. ACT 112: Negative or not required by law. Electronically signed by: Steve Laird M.D. 07/05/2023 9:29 AM
[2023-07-05] MEDS: FUROSEMIDE INJ 20 MG/2 ML VIAL IV ONE (11:20)
[2023-07-05] MEDS: AMMONIUM LACTATE 12% LOTION 225 GM BTL EXT PRN (11:20)
[2023-07-06 07:11] LABS: Hematocrit (blood only) 34.2 % (37.0-47.0); Hemoglobin 9.8 g/dl (12.0-16.0); Mean Corpuscular Hgb Conc 28.7 g/dL (32.0-36.0); Mean Corpuscular Volume 80.3 fL (80.0-100.0); Mean Platelet Volume 10.8 fL (9.4-12.4); Platelet Count 239 K/uL (130-400); RDW Coefficient of Variation 18.6 % (11.5-14.5); RDW Standard Deviation 53.3 fL (36.4-46.3); Red Blood Count 4.26 M/uL (4.20-5.40); White Blood Count 15.67 K/ul (4.8-10.8)
[2023-07-06 07:42] LABS: BUN Creatinine Ratio 14.3 (10-20); Calcium 7.5 mg/dl (8.6-10.3); Creatinine Clr Calc Pharmacy 47.8 ml/min; Est GFR (African American) 71.4 ml/min; Est GFR (Non-African American) 61.6 ml/min; Magnesium 1.8 mg/dl (1.7-2.4); Phosphorus 3.2 mg/dl (2.5-4.9); Potassium 3.8 mmol/L (3.5-5.1)
--- NOTE | 2023-07-06 14:07 | Discharge Summary ---
Date of Service July 06, 2023 Admission HPI Per Admitting Provider This is a 87-year-old female with PMH of HFpEF, permanent A Fib, history of CVA, hypothyroidism, HLD, prediabetes, CKD III, history of occlusion of common femoral artery, bilateral lower extremity edema, depression, mild dementia who presents from home after a choking incident. Unable to obtain history from patient at bedside due to dementia and hearing impairment. History obtained from granddaughter in- law and grandson over the phone. Reports that patient was gurgling and coughing up liquid and they called EMS. Since then, she has been breathing heavily. Once the granddaughter met up with her again in the ED, kelle ruby told her "I got that meat down" and seemed to be speaking and breathing more comfortably. Does note wheezing, which is not normal for her at rest. Has trouble swallowing pills at home and is given them in applesauce. Denies other choking incidences at home. Daughter thought she got Eliquis down today but is unsure about metoprolol succinate or Plavix. Left back hip has been swelling as well as stomach on right side. Also notes elevated heart rates in the 100s. Has not been complaining of pain. Was due to see PCP tomorrow to evaluate hip. + visual hallucinations seeing children in the yard, which is not a typical feature of her dementia. Leg swelling seems to be at baseline. Has been following with the wound clinic since patient scratches at her legs. Has improved with them wrapping. Recently had Torsemide increased to 60mg BID by [facility] cardiology. Most recent 2D echo from Nov 2022 with EF 50-54%, borderline diffuse left ventricular hypokinesis, mild AV regurg, mild MV regurg, mild tricuspid regurg. Lives at home with granddaughter in law and ambulates short distance with walker. Admission Exam Per Admitting Provider General Appearance: WD/WN, vitals as above, NAD, sitting up in bed, pleasantly confused, conversing with some effort Head: normocephalic, atraumatic Eyes: normal inspection, PERRL, conjunctivae normal, anicteric sclerae ENT: external ear and nose normal, oropharynx normal Neck: normal visual inspection Respiratory: increased respiratory effort, diminished lung sounds bilaterally, wheezing upper lung wick bilaterally Cardiovascular: irregular rate & rhythm, no murmur, + BLE edema. Vessels: no JVD Chest: normal inspection of chest Abdomen/GI: normal bowel sounds, soft, nontender, no hepatosplenomegaly Extremities/Musculoskeletal: BLE edema with chronic venous stasis changes R>L, legs wrapped, no cyanosis or clubbing, extremities motor strength 5/5 Neurologic: PERRL, EOMI, CN's II-XI intact bilaterally and moves all extremities Psychiatric: A+Ox person only Skin: no rashes, normal color, warm/dry Principal Diagnosis acute hypoxic respiratory failure, aspiration pneumonia, A-fib with RVR, HFpEF Discharge Exam General: Lying comfortably in bed, not in acute distress, on 1 L NC HEENT: very hard of hearing, normocephalic Chest: bilateral rhonchi improved CVS: irregular, Abdomen: Soft, non tender, not distended, normal bowel sounds Neuro: Awake, alert, answers simple questions Extremities: mild edema Discharge Data Allergies Allergy/AdvReac Type Severity Reaction Status Date / Time aspirin Allergy Severe ANAPHYLAXIS, Verified 06/29/23 19:25 SWELLING, (PER [facility]--NAUSEA, VOMITING). Consultations 06/29/23 19:06 ED Decision to Admit Stat 06/30/23 07:00 Consult Cardiology Routine Consult Pulmonology Routine Ordered Studies 06/29/23 21:22 CT chest diagnostic wo con Routine 06/30/23 09:00 FL video swallow Routine Laboratory Results WBC 15.67 K/ul (4.8-10.8) H 07/06/23 06:54 RBC 4.26 M/uL (4.20-5.40) 07/06/23 06:54 Hgb 9.8 g/dl (12.0-16.0) L 07/06/23 06:54 Hct 34.2 % (37.0-47.0) L 07/06/23 06:54 MCV 80.3 fL (80.0-100.0) 07/06/23 06:54 MCH 23.0 pg (25.0-34.0) L 07/06/23 06:54 MCHC 28.7 g/dL (32.0-36.0) L 07/06/23 06:54 RDW Std Deviation 53.3 fL (36.4-46.3) H 07/06/23 06:54 RDW Coeff of Cain 18.6 % (11.5-14.5) H 07/06/23 06:54 Plt Count 239 K/uL (130-400) 07/06/23 06:54 MPV 10.8 fL (9.4-12.4) 07/06/23 06:54 Immature Gran % (Auto) 0.7 % 06/29/23 17:35 Neut % (Auto) 86.9 % 06/29/23 17:35 Lymph % (Auto) 4.5 % 06/29/23 17:35 Coal % (Auto) 7.1 % 06/29/23 17:35 Eos % (Auto) 0.3 % 06/29/23 17:35 Baso % (Auto) 0.5 % 06/29/23 17:35 Neut # (Auto) 13.17 K/uL (1.40-6.50) H 06/29/23 17:35 Lymph # (Auto) 0.69 K/uL (1.20-3.40) L 06/29/23 17:35 Coal # (Auto) 1.08 K/uL (0.11-0.59) H 06/29/23 17:35 Eos # (Auto) 0.05 K/uL (0.00-0.50) 06/29/23 17:35 Baso # (Auto) 0.07 K/uL (0.00-0.20) 06/29/23 17:35 Immature Gran # (Auto) 0.11 K/uL (0.01-0.20) 06/29/23 17:35 PT 14.7 Seconds (9.0-12.0) H 06/29/23 17:35 INR 1.4 (0.9-1.1) H 06/29/23 17:35 APTT 26 Seconds (21-31) 06/29/23 17:35 PTT Ratio 1.0 06/29/23 17:35 Heparin Anti-Xa, Unfract 0.27 IU/ml (0.3-0.7) L 07/01/23 14:03 Sodium 141 mmol/L (136-145) 07/06/23 06:54 Potassium 3.8 mmol/L (3.5-5.1) 07/06/23 06:54 Chloride 98 mmol/L (98-107) 07/06/23 06:54 Carbon Dioxide 38 mmol/L (21-32) H 07/06/23 06:54 Anion Gap 5 (3-11) 07/06/23 06:54 BUN 12 mg/dl (6-23) 07/06/23 06:54 Creatinine 0.84 mg/dl (0.6-1.2) 07/06/23 06:54 Est Cr Clr Drug Dosing 47.8 ml/min 07/06/23 06:54 Est GFR ( Amer) 71.4 ml/min 07/06/23 06:54 Est GFR (Non-Af Amer) 61.6 ml/min 07/06/23 06:54 BUN/Creatinine Ratio 14.3 (10-20) 07/06/23 06:54 Glucose 126 mg/dl (70-99(Fasting)) H 07/06/23 06:54 Calcium 7.5 mg/dl (8.6-10.3) L 07/06/23 06:54 Phosphorus 3.2 mg/dl (2.5-4.9) 07/06/23 06:54 Magnesium 1.8 mg/dl (1.7-2.4) 07/06/23 06:54 Total Bilirubin 0.7 mg/dl (0.2-1.0) 06/29/23 17:35 AST 26 U/L (13-39) 06/29/23 17:35 ALT 14 U/L (7-52) 06/29/23 17:35 Alkaline Phosphatase 104 U/L (34-104) 06/29/23 17:35 Troponin I High Sens 8.1 pg/ml (0-14) 06/29/23 17:35 C-Reactive Protein 2.92 mg/dl (0-0.5) H 06/29/23 17:35 Total Protein 6.9 gm/dl (6.0-8.3) 06/29/23 17:35 Albumin 3.0 gm/dl (3.4-5.0) L 06/29/23 17:35 Globulin 3.9 gm/dl (2.5-4.0) 06/29/23 17:35 Albumin/Globulin Ratio 0.8 (0.9-2) L 06/29/23 17:35 Lipase 15 U/L (11-82) 06/29/23 17:35 Procalcitonin 0.04 ng/ml (0-0.5) 06/29/23 17:35 TSH 4.456 uIu/ml (0.300-4.500) 07/01/23 05:50 Urine Color Dark Yellow 06/29/23 Unknown Urine Appearance Cloudy (Clear) A 06/29/23 Unknown Urine pH 5.0 (4.5-7.5) 06/29/23 Unknown Ur Specific [place] 1.021 (1.000-1.030) 06/29/23 Unknown Urine Protein 1+ (Negative) H 06/29/23 Unknown Urine Glucose (UA) Negative (Negative) 06/29/23 Unknown Urine Ketones Negative (Negative) 06/29/23 Unknown Urine Blood Negative (Negative) 06/29/23 Unknown Urine Nitrite Negative (Negative) 06/29/23 Unknown Urine Bilirubin Negative (Negative) 06/29/23 Unknown Urine Urobilinogen Negative (Negative) 06/29/23 Unknown Ur Leukocyte Esterase 1+ (Negative) H 06/29/23 Unknown Urine RBC 0-2 /hpf (0-2) 06/29/23 Unknown Urine WBC 0-5 /hpf (0-5) 06/29/23 Unknown Ur Epithelial Cells 3-5 /hpf (0-2) H 06/29/23 Unknown Calcium Oxalate Crystal Present (None Prsent) A 06/29/23 Unknown Urine Bacteria None Seen (None Seen) 06/29/23 Unknown Impressions Hip/Pelvis X-Ray 06/29/23 21:15 XR hip LT 2V w pelvis HISTORY: 87 years-old Female posterior left hip pain / swelling acute left hip pain COMPARISON: Pelvis radiograph 07/08/2021 TECHNIQUE: AP view of the pelvis with 2 views of the left hip FINDINGS: Demineralized appearance of the bones. Moderate right hip osteoarthritis. Unchanged appearance of the left hip arthroplasty. No acute fracture, dislocation or evidence of hardware complication. Arterial calcifications. Limited study secondary to patient positioning. IMPRESSION: 1. No acute fracture or dislocation identified. 2. Chronic degenerative and postoperative changes as above. ACT 112: Negative or not required by law. The above report was generated using voice recognition software. It may contain grammatical, syntax or spelling errors. Electronically signed by: Cas Chaparro M.D. 06/30/2023 7:[address] 06/29/23 21:22 Exam(s): CT CHEST Without Contrast EXAM: CT Chest Without Intravenous Contrast CLINICAL HISTORY: Reason for exam: aspiration, tachypnea. TECHNIQUE: Axial computed tomography images of the chest without intravenous contrast. CTDI is 22.57 mGy and DLP is 706.35 mGy-cm. Automated exposure control was utilized for the study. A dose lowering technique was utilized adhering to the principles of ALARA. COMPARISON: Chest CT 11/28/2018 FINDINGS: Lungs: Multifocal centrilobular airspace opacities most pronounced at the lung bases right greater than left. Interstitial edema. Pleural space: Small pleural effusions. Heart: Unremarkable. Bones/joints: No acute findings. Soft tissues: Unremarkable. Vasculature: Unremarkable. Lymph nodes: Unremarkable. IMPRESSION: 1. Multifocal centrilobular airspace opacities most pronounced at the lung bases right greater than left. 2. Interstitial edema. 3. Small pleural effusions. Electronically signed by: Adi Lafleur MD 06/29/23 22:47 PM Videofluoroscopic Swallow 06/30/23 09:00 FL video swallow CLINICAL HISTORY: 87 years-old Female with assess for aspiration. Dysphagia with possible aspiration TECHNIQUE: Video fluoroscopic evaluation of swallowing was performed in the AP and lateral projections by the speech pathology staff. The patient is fed varying consistencies of barium. FLUOROSCOPY TIME: 1.50 minutes. 2007 images were submitted. 13.3 mGy COMPARISON STUDY: Chest CT 06/29/2023 FINDINGS: Laryngeal penetration without aspiration noted with thin liquid barium. No definite aspiration identified throughout the exam. There is delayed oral pharyngeal transit with the solid consistency. Mid to distal esophageal dysmotility. IMPRESSION: 1. No aspiration identified. 2. Please see the speech pathologist report for detailed findings and recommend ations. ACT 112: Negative or not required by law. Electronically signed by: Cas Chaparro M.D. 06/30/2023 10:18 AM Chest X-Ray 07/05/23 09:00 SINGLE VIEW CHEST CLINICAL HISTORY: Congestive failure. FINDINGS: An AP, portable, upright chest radiograph is compared to chest x-ray and chest CT dated 06/29/2023. The heart is enlarged noting atherosclerotic calcification of the thoracic aorta. There is pulmonary vascular congestion. There are layering pleural effusions with dependent consolidation. No pneumothorax is seen. The skeletal structures are osteopenic. The bony thorax is grossly intact. Degenerative change is noted in the shoulders and spine. IMPRESSION: 1. Cardiomegaly with evidence of congestive failure. This has modestly worsened as compared to 06/29/2023. 2. Layering pleural effusions with dependent consolidation. ACT 112: Negative or not required by law. Electronically signed by: Steve Laird M.D. 07/05/2023 9:29 AM Hospital Course (1) Aspiration pneumonia: (2) Atrial fibrillation with rapid ventricular response: (3) Current use of alf anticoagulation: (4) (HFpEF) heart failure with preserved ejection fraction: (5) Traumatic open wound of right lower leg with delayed healing: (6) PAD (peripheral artery disease): (7) Chronic venous insufficiency: (8) Venous stasis ulcers: (9) Hypothyroidism: (10) CKD (chronic kidney disease) stage 3, GFR 30-59 ml/min: (11) Dyslipidemia: (12) HTN (hypertension): (13) History of CVA (cerebrovascular accident): Plan Aspiration pna Acute hypoxic resp. failure Choking incident at home with boneless wing, feels she passed food bolus but still with wheezing in ED Saturating well at 1 LNC (not on home O2 at baseline). Afebrile, WBC trending down. X-ray and CT reviewed. 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 Status post video swallow study which did not show any aspiration. Continue minced and moist diet. Status post IV Zosyn-> Augmentin. Continue for 2 more days at discharge. Continue to wean down oxygen As tolerated. Encourage flutter valve and incentive spirometry. Atrial fibrillation with RVR Granddaughter mentions elevated HRs around 110 at home this past week Initial EKG with HR 134, given 10mg bolus of diltiazem in ED Started on diltiazem drip -> now off dilt gtt Continue metoprolol 100 mg twice daily. Discharge along with Eliquis 2.5 Mg twice daily as per cardiology. HFpEF Continue torsemide 50 Mg daily (prior home dose 60 bid) along with home spironolactone per cardiology. Follow-up with cardiology as outpatient for further management of diuretics. 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 today. Total Time Total Time Spent Total Time Spent (In Minutes): 35 Discharge Plan Discharge Items Patient Disposition: Transfer Inpatient Rehab Fac Reason For Visit: ASPIRATION PNA, A FIB WITH RVR Discharge Diagnosis: Aspiration pna Afib w/ RVR Activity: Per Instructions section Non-emergency contact: Primary Care Provider Call non-emergency contact if: you have any medication questions and your symptoms worsen Follow-up/Referrals: Ketan Jacob MD [Primary Care Provider] - Diet: Regular and Low Sodium (2gm) Fluids: 1500ml (6 cups) Addtl Attending Provider Instructions: Continue the medications as prescribed Pending Studies at Discharge: No Stand-Alone Forms: My [facility] Skilled Items Patient informed of condition?: Yes DNR: Yes Discharge Level of Care: Acute rehab Communicable Disease: No Discharge Prognosis: Stable Lines: None Urinary Catheter: No Medications and DC Order Prescriptions: New torsemide 100 mg Tablet 50 mg PO QAM Qty: 30 0RF amoxicillin-pot clavulanate 875-125 mg Tablet 1 tab PO BIDM 2 Days Qty: 4 0RF Eliquis 2.5 mg Tablet 2.5 mg PO BID Qty: 60 0RF Continued fluticasone propionate 50 mcg/actuation spray,suspension 2 spry intranasal DAILY PRN (Reason: Congestion) nystatin 100,000 unit/gram cream 1 applic topical BID PRN (Reason: Skin Irritation) Patient Comments: Daughter stated it has been probably a month since using but a new yeast spot developed and it will be used later today. (10/25/18) polyethylene glycol 3350 [Miralax] 17 gram/dose Powder 17 g PO DAILY PRN (Reason: SEVERE CONSTIPATION) Rx Instructions: take with 8 oz water or juice acetaminophen 650 mg Tablet Extended Release 650 mg PO Q6H PRN (Reason: pain/fever) atorvastatin 10 mg tablet 10 mg PO HS clopidogrel 75 mg tablet 75 mg PO QAM levothyroxine 25 mcg tablet 25 mcg PO QAM Rx Instructions: TAKE THIS MEDICATION ONCE DAILY 30 MINUTES BEFORE BREAKFAST OR ANY OTHER MEDICATION pantoprazole 40 mg tablet,delayed release (DR/EC) 40 mg PO QAM albuterol sulfate 2.5 mg /3 mL (0.083 %) Solution For Nebulization 2.5 mg INHALATION DIRECTED PRN (Reason: Wheezing) cyanocobalamin (vitamin B-12) [Vitamin B-12] 1,000 mcg Tablet 1,000 mcg PO DAILY docusate sodium [Stool Softener] 100 mg Capsule 100 mg PO BID PRN (Reason: Constipation) nystatin 100,000 unit/gram Powder 1 applic TOPICAL TID PRN (Reason: Skin Irritation) spironolactone 25 mg tablet 12.5 mg PO QAM magnesium oxide 400 mg magnesium tablet 400 mg PO DAILY multivitamin Tablet 1 tab PO DAILY metoprolol succinate 100 mg tablet extended release 24 hr 100 mg PO BID Discontinued torsemide 20 mg tablet 60 mg PO BID Eliquis 5 mg tablet 5 mg PO BID Discharge Orders: Discharge Order (Routine); Ordered 07/06/23 Ordered By: Mark Frazier Admission Data Admit Date/Time: 06/29/23 19:59 Attending Provider: Mark Frazier Admit Provider: Brandon Blanchard Primary Care Provider: Ketan Jacob Other Providers: Brandon Blanchard; Cesar Lopez; Jadon Blue; [facility]
== END 2023-07-06 16:05 | DRG 178 ==
LOC: ED 17:02 → SUATTDRO 19:59 → EDINP 19:59 → 2E 22:11